=== PATIENT | female | born 1965 | race Caucasian/White ===

== ENCOUNTER 2019-06-01 09:22 | Outpatient (CLI) | payer BC, SELFPAY ==
--- NOTE | ~2019-06-01 | MM_ITS ---
EXAMINATION: MM screening [facility] BI w sita HISTORY: Screening mammogram TECHNIQUE: Craniocaudal and mediolateral oblique 3-D tomosynthesis images were obtained and synthetic 2-D images were generated. CAD analysis was submitted and interpreted. COMPARISON: 11/14/2017, 03/30/2012, 03/28/2010 BREAST PARENCHYMAL COMPOSITION: The breasts are almost entirely fatty. FINDINGS: There is no evidence of suspicious mass, calcification, or architectural distortion to sugg est malignancy in either breast. There has been no suspicious interval change. IMPRESSION: 1. No mammographic evidence of malignancy. 2. Recommend routine screening mammography in one year. BI-RADS Category 1: Negative Reviewed, dictated and finalized at location A. MACY OPERATIONS COORDINATOR
== END 2019-06-01 09:23 | disposition home or self-care (01) ==
LOC: ANHIMG 09:24
PROVIDERS: PCP Family Medicine; Visit Provider Obstetrics & Gynecology
DX: Z12.31 Encounter for screening mammogram for malignant neoplasm of breast (principal)
CPT/HCPCS: 77063; 77067

== ENCOUNTER 2019-06-30 00:27 | Day surgery (SDC) | payer BC, SELFPAY ==
[2019-06-24 13:35] VITALS: BMI 42.9
[2019-06-30] MEDS: LACTATED RINGERS 1,000 ML 150 ML IV CONT ×2 (07:21→08:14)
[2019-06-30 07:26] LABS: Glucose Point of Care 119 (65-105)
[2019-06-30 07:27] VITALS: BP 125/80; PULSE 80; RESP 16; TEMP 36.8; O2SAT 96
--- NOTE | 2019-06-30 07:46 | WPDANESEPPF ---
Anes - Initial Pre Proc Eval Procedure: Operation Date: 06/30/19 08:00 Proposed Procedures p Colonoscopy - Ivan Brooks MD Date/Time: 06/30/19 07:46 Surgeon: Ivan Brooks MD Pre Op Diagnosis: Rectal Bleeding/ Fam Hx Colon Polyps Patient Data Age: 54 Gender: F Height: 5 ft 4 in Weight: 110.4 kg Last Vital Signs Temp 98.2 F 06/30/19 07:27 Pulse 80 06/30/19 07:27 Resp 16 06/30/19 07:27 BP 125/80 06/30/19 07:27 Pulse Ox 96 06/30/19 07:27 Allergies Allergy/AdvReac Type Severity Reaction Status Date / Time Cephalosporins Allergy Severe HIVES Verified 06/30/19 07:21 levofloxacin Allergy Severe RASH Verified 06/30/19 07:21 Quinolones Allergy Severe HIVES Verified 06/30/19 07:21 cefuroxime Allergy Unknown Unknown Verified 06/30/19 07:21 dexamethasone Allergy Unknown Unknown Verified 06/30/19 07:21 neomycin Allergy Unknown Unknown Verified 06/30/19 07:21 Contrast Media Allergy Unknown Itching Uncoded 06/30/19 07:21 Home Medications Medication Instructions Recorded Confirmed Type aspirin 81 mg tablet,delayed 81 mg PO DAILY 03/05/19 06/24/19 History release bupropion HCl 150 mg 24 hr tablet, 150 mg PO QAM 03/05/19 06/24/19 History extended release clopidogrel 75 mg tablet 75 mg PO DAILY 03/05/19 06/30/19 History cyclobenzaprine 10 mg tablet 10 mg PO TID 03/05/19 06/24/19 History evolocumab 140 mg/mL subcutaneous 140 mg SUB-Q ONCE 03/05/19 06/24/19 History pen injector famotidine 40 mg tablet 40 mg PO DAILY 03/05/19 06/24/19 History fexofenadine 180 mg tablet 180 mg PO DAILY 03/05/19 06/24/19 History icosapent ethyl 1 gram capsule 2 gm PO BID 03/05/19 06/24/19 History metoprolol succinate 25 mg capsule 25 mg PO DAILY 03/05/19 06/30/19 History sprinkle, ext. release 24 hr apremilast 10 mg (4)-20 mg (4)-30 See Rx Instructions PO PER PKG DIR 03/23/19 06/24/19 History mg (47) tablets in a dose pack tramadol 50 mg tablet 50 mg PO Q4H PRN #120 tablet 04/06/19 06/24/19 Rx pseudoephedrine-guaifenesin ER 60 1 tablet PO BID PRN #30 tablet 04/13/19 06/24/19 Rx mg-600 mg tablet,extend release 12hr fluticasone propionate 50 2 spray NASAL DAILY #18.2 ml 05/05/19 06/24/19 Rx mcg/actuation nasal spray,suspension montelukast 10 mg tablet 10 mg PO DAILY #90 tablet 05/31/19 06/24/19 Rx zolpidem 10 mg tablet 10 mg PO ONCE 05/31/19 06/24/19 History blood sugar diagnostic #100 each 06/14/19 Rx blood-glucose meter #1 each 06/14/19 Rx clindamycin HCl 300 mg capsule 300 mg PO Q8H #30 cap 06/14/19 06/30/19 Rx lancets 32 gauge #100 each 06/14/19 Rx metformin 500 mg tablet 500 mg PO BID #180 tablet 06/14/19 06/30/19 Rx rosuvastatin 20 mg tablet 20 mg PO DAILY #90 tablet 06/14/19 06/24/19 Rx Laboratory Tests 06/30/19 07:24 POC Capillary Glucose 119 mg/dl H mg/dl (65-105) Patient hx anesthesia problems: post op nausea/vomiting Family hx anesthesia problems: none PMFSH Past Medical History Medical History (Updated 06/14/19 @ 13:44 by Kia Zarco, [facility]) Acute rhinosinusitis Chronic acquired lymphedema Colon cancer screening DM type 2 (diabetes mellitus, type 2) Encounter to establish care Follow up On senior living drug therapy Parotitis Rectal bleeding Tobacco abuse Tremor UTI (urinary tract infection) Family History Family History (Updated 07/30/18 @ 12:37 by DOCTOR UNKNOWN) Mother Family history of thyroid disease, Onset Age: 84 Family history of chronic obstructive pulmonary disease, Onset Age: 84 Family history of emphysema, Onset Age: 84 Grandparent Diabetes mellitus, Onset Age: 70 Family history of cardiovascular disease Cerebrovascular accident, Onset Age: 70 Father Family history of cardiovascular disease Family history of lymphoma Sibling Acute myocardial infarction, Onset Age: 55 Social History Social History Smoking status: Heavy tobacco smoker Alcohol intake: current Gender identity
--- NOTE | 2019-06-30 08:01 | WPDGICN ---
Assessment and Plan Additional Plan This is a 54-year-old white female patient seen in evaluation at the request of Dr. Jaime Cleaning. patient presents for colonoscopy. Her current weight appetite bowel movements are normal. She states over 10 years has had intermittent bright red blood per rectum typically associated with bowel movements. She denies abdominal pain. In the past she has been told she had irritable bowel syndrome. She denies any change in her weight. Family history is significant her mother's had colon polyps. Past medical history is significant for diabetes, lymphedema, sinusitis, current medications include aspirin, bupropion, Plavix, cyclobenzaprine, famotidine, fexofenadine, metformin, Sudafed, tramadol, rosuvastatin, zolpidem. Allergies include cephalosporins, levofloxacin, neomycin. Physical exam reveals her to be alert. Oriented x3. Vital signs stable. HEENT exam unremarkable. Lungs are clear to auscultation and percussion. Heart is without murmur or extra sounds. Abdominal exam bowel sounds are present soft nontender with no organomegaly. Digital external rectal exam does reveal hemorrhoids. Impression 1. Family history of colon polyps. Her mother had colon polyps. Plan is for surveillance colonoscopy now on a 5 year intervals in the future. 2. Rectal bleeding. Patient known to have hemorrhoids. Plan to assess at the time of colonoscopy. High-fiber diet with fiber supplements are encouraged at this time. Further recommendations may be considered. 3. Irritable bowel syndrome. This is has been present for some time. Plan is for high-fiber diet as outlined above. 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 Parotitis Rectal bleeding Tobacco abuse Tremor UTI (urinary tract infection) Family History Family History (Updated 07/30/18 @ 12:37 by DOCTOR UNKNOWN) Mother Family history of thyroid disease, Onset Age: 84 Family history of chronic obstructive pulmonary disease, Onset Age: 84 Family history of emphysema, Onset Age: 84 Grandparent Diabetes mellitus, Onset Age: 70 Family history of cardiovascular disease Cerebrovascular accident, Onset Age: 70 Father Family history of cardiovascular disease Family history of lymphoma Sibling Acute myocardial infarction, Onset Age: 55 Social History Social History Smoking status: Heavy tobacco smoker Alcohol intake: current Gender identity (if verbalized by the patient): Female Meds Home Medications and Allergies Home Medications Medication Instructions Recorded Confirmed Type aspirin 81 mg tablet,delayed 81 mg PO DAILY 03/05/19 06/24/19 History release bupropion HCl 150 mg 24 hr tablet, 150 mg PO QAM 03/05/19 06/24/19 History extended release clopidogrel 75 mg tablet 75 mg PO DAILY 03/05/19 06/30/19 History cyclobenzaprine 10 mg tablet 10 mg PO TID 03/05/19 06/24/19 History evolocumab 140 mg/mL subcutaneous 140 mg SUB-Q ONCE 03/05/19 06/24/19 History pen injector famotidine 40 mg tablet 40 mg PO DAILY 03/05/19 06/24/19 History fexofenadine 180 mg tablet 180 mg PO DAILY 03/05/19 06/24/19 History icosapent ethyl 1 gram capsule 2 gm PO BID 03/05/19 06/24/19 History metoprolol succinate 25 mg capsule 25 mg PO DAILY 03/05/19 06/30/19 History sprinkle, ext. release 24 hr apremilast 10 mg (4)-20 mg (4)-30 See Rx Instructions PO PER PKG DIR 03/23/19 06/24/19 History mg (47) tablets in a dose pack tramadol 50 mg tablet 50 mg PO Q4H PRN #120 tablet 04/06/19 06/24/19 Rx pseudoephedrine-guaifenesin ER 60 1 tablet PO BID PRN #30 tablet
[2019-06-30 08:40] VITALS: BP 110/66; PULSE 74; RESP 18; O2SAT 99
[2019-06-30 08:50] VITALS: BP 120/70; PULSE 68; RESP 15; O2SAT 99
[2019-06-30 09:00] VITALS: BP 127/78; PULSE 66; RESP 17; O2SAT 99
== END 2019-06-30 09:15 | disposition home or self-care (01) ==
PROVIDERS: PCP Internal Medicine; Visit Provider Internal Medicine Gastroenterology
PROC: 0DJD8ZZ Inspection of Lower Intestinal Tract, Via Natural or Artificial Opening Endoscopic (ICD-10-PCS; CPT 45378; principal; 2019-06-30 08:00)
DX: Z12.11 Encounter for screening for malignant neoplasm of colon (principal); K62.5 Hemorrhage of anus and rectum; D12.5 Benign neoplasm of sigmoid colon; K64.8 Other hemorrhoids; K58.9 Irritable bowel syndrome, unspecified; Z83.71 Family history of colonic polyps; E11.9 Type 2 diabetes mellitus without complications; Z79.82 Long term (current) use of aspirin; Z79.02 Long term (current) use of antithrombotics/antiplatelets; Z79.84 Long term (current) use of oral hypoglycemic drugs; Z72.0 Tobacco use; E66.01 Morbid (severe) obesity due to excess calories; Z68.41 Body mass index [BMI] 40.0-44.9, adult
CPT/HCPCS: 45385; 88305; J2704; J7120

== ENCOUNTER 2019-07-20 14:14 | Outpatient (CLI) | payer BC, SELFPAY ==
--- NOTE | ~2019-07-20 | XR_ITS ---
EXAMINATION: XR sinus min 3V INDICATION: Recurrent sinusitis TECHNIQUE: Five views of the paranasal sinuses are obtained. COMPARISON: CT, 02/09/2010 FINDINGS: The paranasal sinuses are well pneumatized. No sinus opacification is identified. The left maxillary sinus is mildly hypoplastic compared to the right. The patient bones are unremarkable. Ther e is chronic mild leftward deviation of the nasal septum. IMPRESSION: 1. Unremarkable paranasal sinuses although sensitivity of radiographs is low. Consider CT if there is high clinical concern for sinusitis. Reviewed, dictated and finalized at location B. IMPRESSION: 1. Unremarkable paranasal sinuses although sensitivity of radiographs is low. C onsider CT if there is high clinical concern for sinusitis.
--- NOTE | ~2019-07-20 | CT_ITS ---
EXAMINATION: CT chest wo con DATE: 07/20/2019 15:22 INDICATION: Cough TECHNIQUE: Computed tomography (CT) of the chest was performed without intravenous contrast. The dose -length product was 575.34 mGy-cm. Automated exposure control and iterative reconstruction technique were employed. COMPARISON: CT dated 03/15/2010 FINDINGS: There are patchy bilateral groundglass opacities in both lungs. There is a 6 mm right lower lobe nodule, image 86. There are several right upper lobe nodules measuring up to 4 mm. There is a 6 mm left upper lobe nodule. There is a 5 mm right lower lobe nodule, image 83. There is a 6 mm subsol id perifissural nodule, image 73. No endobronchial lesions. There is atherosclerosis of the aorta and coronary arteries. Heart size is normal. No significant pleural or pericardial effusion. Fatty infil tration of the liver. Calcified granulomas in the spleen. There is mild axillary lymphadenopathy, lar gest in the left axilla partially visualized measuring 1.3 cm, image 32. 9 mm precarinal lymph node. Mild thoracic spondylosis. IMPRESSION: 1. Patchy bilateral groundglass opacification, suspicious for pneumonia. 2: Multiple bilateral pulmonary nodules, largest measuring up to 6 mm. Recommend follow-up low dose CT chest in 6 months. 3: Mediastinal and axillary lymphadenopathy, likely reactive. Reviewed, dictated and finalized at location A. IMPRESSION: 1. Patchy bilateral groundglass opacification, suspicious for pneumonia. 2: Multiple bilateral pulmonary nodules, largest measuring up to 6 mm. Recomme nd follow-up low dose CT chest in 6 months. 3: Mediastinal and axillary lymphadenopathy, likely reactive.
--- NOTE | ~2019-07-20 | XR_ITS ---
XR knee RT 3V 07/20/2019 15:08 Indication: Right knee pain Procedure: 3 views right knee Comparison: No prior studies for comparison. Findings: There is mild tricompartment osteoarthritis of the right knee. Small joint effusion. No fra cture or traumatic malalignment. No foreign bodies. Impression: 1: Mild tricompartment osteoarthritis of the right knee. 2: Small joint effusion. Reviewed, dictated and finalized at location A. Impression: 1: Mild tricompartment osteoarthritis of the right knee. 2: Small joint effusion.
== END 2019-07-20 14:15 | disposition home or self-care (01) ==
LOC: ANHIMG 14:43
PROVIDERS: PCP Internal Medicine; Visit Provider Internal Medicine
DX: J01.91 Acute recurrent sinusitis, unspecified (principal); R91.8 Other nonspecific abnormal finding of lung field; M25.461 Effusion, right knee; M17.11 Unilateral primary osteoarthritis, right knee
CPT/HCPCS: 70220; 71250; 73562

== ENCOUNTER 2019-07-26 10:01 | Outpatient (CLI) | payer BC, SELFPAY ==
--- NOTE | ~2019-07-26 | XR_ITS ---
EXAMINATION: XR chest 2V DATE: 07/26/2019 10:19 INDICATION: Pneumonia TECHNIQUE: PA and lateral views of the chest were obtained. COMPARISON: Chest radiograph dated and CT dated 07/20/2019 FINDINGS: Chronic linear discoid atelectasis/scarring at the lingula. No other airspace opacities, pulmonary ed waqar, pleural effusion or pneumothorax. The cardiomediastinal silhouette is normal. Mild thoracic spon dylosis. IMPRESSION: 1. Mild lingular atelectasis/scarring at the lingula. No acute cardiopulmonary disease. Reviewed, dictated and finalized at location A.
== END 2019-07-26 10:02 | disposition home or self-care (01) ==
LOC: ANHIMG 10:04
PROVIDERS: PCP Internal Medicine; Visit Provider Internal Medicine
DX: J18.9 Pneumonia, unspecified organism (principal); J98.11 Atelectasis
CPT/HCPCS: 71046

== ENCOUNTER 2019-07-30 12:34 | Outpatient (CLI) | payer BC, SELFPAY ==
--- NOTE | ~2019-07-30 | MR_ITS ---
EXAMINATION: MR abdomen wo/w con DATE: 07/30/2019 14:24 INDICATION: Generalized enlarged lymph nodes. TECHNIQUE: Magnetic resonance imaging (MRI) of the abdomen was performed without and with 20 mL Multi miguelito intravenous contrast. Sequences included coronal T2-weighted SS-FSE, coronal and axial FS 2D-F IESTA, axial STIR FSE, axial T2-weighted SS-FSE, axial T2-weighted FS SS-FSE, axial diffusion-weighte d SE, axial dual-echo T1-weighted FSPGR, and axial and coronal T1-weighted LAVA. Postcontrast axial T 1-weighted LAVA images were obtained in a time course. Postcontrast coronal T1-weighted LAVA images w ere obtained. COMPARISON: MRI dated 05/22/2018 FINDINGS: Heart size is normal. No pericardial or pleural effusion. Hepatomegaly with chronic severe diffuse he patic steatosis with prominent decreased signal on opposed phase images. No intra or extrahepatic luis iary ductal dilation. Gallbladder, spleen, pancreas, bilateral adrenal glands and left kidney are nor mal. 1.4 cm exophytic T2 hyperintense nonenhancing cyst at the lower pole of the right kidney. Visual ized portions of the bowels are unremarkable with no evident wall thickening or obstruction. Again se en are a few mildly prominent periportal and portacaval lymph nodes. The largest portacaval lymph nod e measures 2.0 x 1.4 cm which is slightly decreased in size from the prior study at which time kush sinha measurements were 2.2 x 1.5 cm. 2 slightly smaller periportal lymph nodes measure 1.8 x 1.4 c m and 1.3 x 1.1 cm, the former with identical measurements on the prior study and the latter decrease d from 1.4 x 1.3 cm. No other pathologically enlarged abdominal lymphadenopathy. Bone marrow signal i s unremarkable. IMPRESSION: 1. No change to mild interval decrease in size of a few likely reactive periportal/portacaval lymph n odes. 2. Diffuse hepatic steatosis. Reviewed, dictated and finalized at location B. IMPRESSION: 1. No change to mild interval decrease in size of a few likely reactive peripor morgan/portacaval lymph nodes. 2. Diffuse hepatic steatosis.
[2019-07-30 13:28] LABS: Estimated Glomerular Filt Rate > 60
== END 2019-07-30 12:35 | disposition home or self-care (01) ==
PROVIDERS: PCP Internal Medicine; Visit Provider Internal Medicine
DX: R59.1 Generalized enlarged lymph nodes (principal); K76.0 Fatty (change of) liver, not elsewhere classified
CPT/HCPCS: 36415; 74183; A9577

== ENCOUNTER 2019-09-06 14:05 | Outpatient (CLI) | payer BC, SELFPAY ==
--- NOTE | 2019-09-08 18:21 | WPDPFTINT ---
PFT Interpretation PFT Interpretation: DOS: 09/06/2019 REQUESTING: Dr Jaime Cleaning REASON FOR TESTING: Shortness of breath PULMONARY FUNCTION TESTS Results are reliable and reproducible. Spirometry: FEV1 82%, normal. FVC is 80%, normal. FEV1% is normal. OUB16-95% is 62%. After bronchodilator, there is a 10% increase in FEV1 and 19% increase in ANZ16-23%, which is not statistically significant. Lung volumes: Not obtainable due to a technical problem with the equipment in the PFT lab. Diffusion: DLCO is mildly decreased 67%. Flow volume loop: Scooping of the expiratory limb. IMPRESSION: Mild small airways pattern with a non-statistically significant response to bronchodilator and a mild diffusion impairment. Technical issues prevented the lung volumes from being obtained, which limits the interpretation of these results. Lack of response to bronchodilator should not preclude use if clinically significant. Leonor Lopez MD
== END 2019-09-06 14:06 | disposition home or self-care (01) ==
PROVIDERS: PCP Internal Medicine; Visit Provider Internal Medicine
DX: R06.02 Shortness of breath (principal)
CPT/HCPCS: 94060; 94729

== ENCOUNTER 2019-10-02 08:48 | Outpatient (CLI) | payer BC, SELFPAY ==
--- NOTE | ~2019-10-02 | MR_ITS ---
EXAMINATION: MR knee RT wo con DATE: 10/02/2019 09:45 INDICATION: Generalized right knee pain. TECHNIQUE: Magnetic resonance imaging (MRI) of the right knee was performed without intravenous contr ast. Sequences included axial PD-weighted FS FSE, coronal PD-weighted FSE and PD-weighted FS FSE, sag ittal PD-weighted FSE, and sagittal T2-weighted FS FSE. COMPARISON: Right knee radiographs 07/20/2019, MRI 06/15/2014 FINDINGS: Medial compartment: There is a complex tear involving body and posterior horn of medial meniscus. There is deep partial t hickness cartilage loss of tibial condyle involving the medial articular surface with mild subchondra l edema-like marrow signal intensity. There is full-thickness cartilage loss of femoral condyle invol ving the central and medial articular surface with mild subchondral edema-like marrow signal intensit y. Marginal osteophytes are noted. Lateral compartment: Lateral meniscus is normal. There is shallow partial-thickness cartilage loss of femoral condyle invo lving the lateral articular surface. There is cartilage surface regularity of tibial condyle. Margina l osteophytes are noted. Patellofemoral compartment: There is shallow partial-thickness cartilage loss of patellar median ridge and lateral facet. There i s cartilage surface irregularity of trochlea. Marginal osteophytes are noted. Ligaments and tendons: The anterior and posterior cruciate ligaments are normal. There is a partial tear of medial collatera l ligament (grade 2 sprain) with surrounding edema. There are changes of prior sprain of fibular derek ateral ligament characterized by thickening and increased signal intensity proximally. There is moder ate patellar tendinopathy. Fluid: There is a small knee joint effusion. There is trace fluid in a Mckoy's cyst. Osseous/other: There is an intraosseous ganglion in posterior medial aspect of proximal tibia. IMPRESSION: 1. Severe chondrosis of medial compartment and mild chondrosis of lateral and patellofemoral compartm ents. 2. Complex tear of medial meniscus. 3. Grade 2 sprain of medial collateral ligament. 4. Small knee joint effusion. Reviewed, dictated and finalized at location E. IMPRESSION: 1. Severe chondrosis of medial compartment and mild chondrosis of lateral and p atellofemoral compartments. 2. Complex tear of medial meniscus. 3. Grade 2 sprain of medial collateral ligament. 4. Small knee joint effusion.
== END 2019-10-02 08:49 | disposition home or self-care (01) ==
LOC: ANHIMG 08:52
PROVIDERS: PCP Internal Medicine; Visit Provider Orthopaedic Surgery
DX: S83.411A Sprain of medial collateral ligament of right knee, initial encounter (principal); M25.461 Effusion, right knee; S83.231A Complex tear of medial meniscus, current injury, right knee, initial encounter; Y93.89 Activity, other specified
CPT/HCPCS: 73721

== ENCOUNTER 2019-10-12 09:05 | Outpatient (CLI) | payer BC, SELFPAY ==
--- NOTE | ~2019-10-12 | XR_ITS ---
EXAMINATION: XR elbow RT 2V DATE: 10/12/2019 10:25 INDICATION: Multiple joint pain. TECHNIQUE: 2 views of right elbow were obtained. COMPARISON: None. FINDINGS: Bone alignment is normal. No fracture. Joint spaces are well maintained. There are enthesop hytes at the medial and lateral humeral epicondyles. There is no elbow joint effusion. IMPRESSION: 1. No arthritis. Reviewed, dictated and finalized at location A. IMPRESSION: 1. No arthritis.
--- NOTE | ~2019-10-12 | XR_ITS ---
EXAMINATION: XR hip RT min 2V DATE: 10/12/2019 10:26 INDICATION: Multiple joint pain. TECHNIQUE: 2 views of right hip were obtained. COMPARISON: None. FINDINGS: Bone alignment is normal. No fracture. There is mild right hip osteoarthritis. Osteitis pub is is noted. IMPRESSION: 1. Mild right hip osteoarthritis. Reviewed, dictated and finalized at location A.
--- NOTE | ~2019-10-12 | XR_ITS ---
EXAMINATION: XR foot RT 2V DATE: 10/12/2019 10:25 INDICATION: Multiple joint pain. TECHNIQUE: 2 views of right foot were obtained. COMPARISON: None. FINDINGS: Bone alignment is normal. No fracture. There is mild osteoarthritis of first metatarsophala ngeal joint and some of the interphalangeal joints and midfoot joints. There are enthesophytes at the posterior and plantar aspects of calcaneal tuberosity. IMPRESSION: 1. Mild polyarticular osteoarthritis. Reviewed, dictated and finalized at location A.
--- NOTE | ~2019-10-12 | XR_ITS ---
EXAMINATION: XR ankle RT 2V DATE: 10/12/2019 10:25 INDICATION: Multiple joint pain. TECHNIQUE: 2 views of right ankle were obtained. COMPARISON: None. FINDINGS: Bone alignment is normal. No fracture. There is mild osteoarthritis of ankle joint and talo navicular joint. There are enthesophytes at the posterior and plantar aspects of calcaneal tuberosity . IMPRESSION: 1. Polyarticular osteoarthritis. Reviewed, dictated and finalized at location A.
--- NOTE | ~2019-10-12 | XR_ITS ---
EXAMINATION: XR wrist LT 2V DATE: 10/12/2019 10:25 INDICATION: Multiple joint pain. TECHNIQUE: 2 views of left wrist were obtained. COMPARISON: None. FINDINGS: Bone alignment is normal. No fracture. There is mild osteoarthritis of radioscaphoid joint and first carpometacarpal joint. IMPRESSION: 1. Polyarticular osteoarthritis. Reviewed, dictated and finalized at location A.
--- NOTE | ~2019-10-12 | XR_ITS ---
EXAMINATION: XR shoulder LT min 2V DATE: 10/12/2019 10:25 INDICATION: Multiple joint pain. TECHNIQUE: 2 views of left shoulder were obtained. COMPARISON: None. FINDINGS: Bone alignment is normal. No fracture. There is mild osteoarthritis of glenohumeral joint a nd acromioclavicular joint. IMPRESSION: 1. Mild polyarticular osteoarthritis. Reviewed, dictated and finalized at location A.
--- NOTE | ~2019-10-12 | XR_ITS ---
EXAMINATION: XR hip LT min 2V DATE: 10/12/2019 10:25 INDICATION: Multiple joint pain. TECHNIQUE: 2 views of left hip were obtained. COMPARISON: None. FINDINGS: Bone alignment is normal. No fracture. There is mild left hip osteoarthritis. Osteitis pubi s is noted. IMPRESSION: 1. Mild left hip osteoarthritis. Reviewed, dictated and finalized at location A.
--- NOTE | ~2019-10-12 | XR_ITS ---
EXAMINATION: XR hand LT 2V DATE: 10/12/2019 10:25 INDICATION: Multiple joint pain. TECHNIQUE: 2 views of left hand were obtained. COMPARISON: None. FINDINGS: Bone alignment is normal. No fracture. There is mild osteoarthritis of radioscaphoid joint, first carpometacarpal joint, first interphalangeal joint, fifth proximal interphalangeal joint, and second, third, and fifth distal interphalangeal joints. There is degenerative cystic change in proxim al lunate, consistent with ulnolunate impaction syndrome. IMPRESSION: 1. Polyarticular osteoarthritis. Reviewed, dictated and finalized at location A.
--- NOTE | ~2019-10-12 | XR_ITS ---
EXAMINATION: XR hand RT 2V DATE: 10/12/2019 10:25 INDICATION: Multiple joint pain. TECHNIQUE: 2 views of right hand were obtained. COMPARISON: None. FINDINGS: Bone alignment is normal. No fracture. There is mild osteoarthritis of first carpometacarpa l joint, first interphalangeal joint, third and fifth proximal interphalangeal joints, and second, th ird, and fifth distal interphalangeal joints. IMPRESSION: 1. Mild polyarticular osteoarthritis. Reviewed, dictated and finalized at location A.
--- NOTE | ~2019-10-12 | XR_ITS ---
EXAMINATION: XR elbow LT 2V DATE: 10/12/2019 10:25 INDICATION: Multiple joint pain. TECHNIQUE: 2 views of left elbow were obtained. COMPARISON: Left elbow radiographs 01/05/2008 FINDINGS: Bone alignment is normal. No fracture. Joint spaces are well maintained. There are enthesop hytes at the medial and lateral humeral epicondyles. There is no elbow joint effusion. IMPRESSION: 1. No arthritis. Reviewed, dictated and finalized at location A. IMPRESSION: 1. No arthritis.
--- NOTE | ~2019-10-12 | XR_ITS ---
EXAMINATION: XR knee LT 2V DATE: 10/12/2019 10:25 INDICATION: Left knee joint pain. TECHNIQUE: 2 views of left knee were obtained. COMPARISON: None. FINDINGS: Bone alignment is normal. No fracture. There is mild tricompartmental osteoarthritis. No kn ee joint effusion. IMPRESSION: 1. Mild left knee osteoarthritis. Reviewed, dictated and finalized at location A.
--- NOTE | ~2019-10-12 | XR_ITS ---
EXAMINATION: XR shoulder RT min 2V DATE: 10/12/2019 10:25 INDICATION: Multiple joint pain. TECHNIQUE: 2 views of right shoulder were obtained. COMPARISON: None. FINDINGS: Bone alignment is normal. No fracture. There is mild osteoarthritis of glenohumeral joint a nd acromioclavicular joint. IMPRESSION: 1. Mild polyarticular osteoarthritis. Reviewed, dictated and finalized at location A.
--- NOTE | ~2019-10-12 | XR_ITS ---
EXAMINATION: XR foot LT 2V DATE: 10/12/2019 10:25 INDICATION: Multiple joint pain. TECHNIQUE: 2 views of left foot were obtained. COMPARISON: None. FINDINGS: Bone alignment is normal. No fracture. There is mild osteoarthritis of first metatarsophala ngeal joint and some of the interphalangeal joints. There is moderate osteoarthritis of second tarsom etatarsal joint and mild osteoarthritis of some of the other midfoot joints. There are enthesophytes at the posterior and plantar aspects of calcaneal tuberosity. IMPRESSION: 1. Polyarticular osteoarthritis. Reviewed, dictated and finalized at location A.
--- NOTE | ~2019-10-12 | XR_ITS ---
EXAMINATION: XR ankle LT 2V DATE: 10/12/2019 10:25 INDICATION: Multiple joint pain. TECHNIQUE: 2 views of left ankle were obtained. COMPARISON: None. FINDINGS: Bone alignment is normal. No fracture. There is mild osteoarthritis of talonavicular joint and moderate osteoarthritis of second tarsometatarsal joint. There are enthesophytes at the posterior and plantar aspects of calcaneal tuberosity. IMPRESSION: 1. Polyarticular osteoarthritis. Reviewed, dictated and finalized at location A.
--- NOTE | ~2019-10-12 | XR_ITS ---
EXAMINATION: XR wrist RT 2V DATE: 10/12/2019 10:25 INDICATION: Multiple joint pain. TECHNIQUE: 2 views of right wrist were obtained. COMPARISON: None. FINDINGS: Bone alignment is normal. No fracture. There is mild osteoarthritis of radioscaphoid joint and first carpometacarpal joint. IMPRESSION: 1. Polyarticular osteoarthritis. Reviewed, dictated and finalized at location A.
== END 2019-10-12 09:06 | disposition home or self-care (01) ==
LOC: ANHIMG 09:08
PROVIDERS: PCP Internal Medicine; Visit Provider Internal Medicine Rheumatology
DX: M19.071 Primary osteoarthritis, right ankle and foot (principal); M19.072 Primary osteoarthritis, left ankle and foot; M19.041 Primary osteoarthritis, right hand; M19.011 Primary osteoarthritis, right shoulder; M19.012 Primary osteoarthritis, left shoulder; M19.031 Primary osteoarthritis, right wrist; M19.032 Primary osteoarthritis, left wrist; M17.12 Unilateral primary osteoarthritis, left knee; M16.0 Bilateral primary osteoarthritis of hip
CPT/HCPCS: 73030; 73070; 73100; 73120; 73502; 73560; 73600; 73620

== ENCOUNTER 2019-11-11 08:47 | Outpatient (CLI) | payer BC, SELFPAY ==
--- NOTE | ~2019-11-11 | CT_ITS ---
EXAMINATION: CT chest w con DATE: 11/11/2019 09:20 INDICATION: Multiple pulmonary nodules TECHNIQUE: Computed tomography (CT) of the chest was performed with 75 cc Omnipaque 350 intravenous c ontrast. Automated exposure control and iterative reconstruction technique were employed. Exam dose: 829.95 mGy-cm total exam DLP. COMPARISON: 07/20/2019 CT chest 07/26/2019 2 view chest FINDINGS: Normal heart size. Coronary artery calcifications. No pericardial effusion. No thoracic aor tic aneurysm or dissection is evident. Approximately 12 x 23 mm right hilar lymphadenopathy. No left hilar or mediastinal lymphadenopathy. Axillary lymph nodes appear stable, within normal range for size. There is no significant interval change of multiple bilateral subcentimeter pulmonary nodules, more n umerous on the right, since 07/20/2019. 12 month follow-up CT imaging is recommended. Included upper abdominal structures including both adrenal glands are unremarkable, with the exceptio n of hepatic steatosis. Degenerative spurring of the thoracic spine. No suspicious osteolytic or osteoblastic lesions are not ed. IMPRESSION: Multiple stable bilateral subcentimeter pulmonary nodules, not significantly changed sin ce 07/20/2019 Mild relatively stable right hilar lymphadenopathy Recommendation: [address] chest follow-up Reviewed, dictated and finalized at Location A. Reviewed, dictated and finalized at location A. IMPRESSION: Multiple stable bilateral subcentimeter pulmonary nodules, not sig nificantly changed since 07/20/2019 Mild relatively stable right hilar lymphadenopathy Recommendation: [address] chest follow-up
[2019-11-11 09:14] LABS: Estimated Glomerular Filt Rate > 60
== END 2019-11-11 08:48 | disposition home or self-care (01) ==
LOC: ANHIMG 08:50
PROVIDERS: PCP Internal Medicine; Visit Provider Internal Medicine
DX: R91.8 Other nonspecific abnormal finding of lung field (principal)
CPT/HCPCS: 36415; 71260; Q9967

== ENCOUNTER 2019-11-30 07:22 | Outpatient (CLI) | payer BC, SELFPAY | END 2019-11-30 07:23 | disposition home or self-care (01) | LOC: ANHCSM 07:28 | PROVIDERS: PCP Internal Medicine; Visit Provider Internal Medicine | DX: G47.33 Obstructive sleep apnea (adult) (pediatric) (principal) | CPT/HCPCS: 95806 ==

== ENCOUNTER 2019-12-03 14:54 | Outpatient (CLI) | payer BC, SELFPAY ==
--- NOTE | ~2019-12-03 | MR_ITS ---
EXAMINATION: MR cervical spine wo con EXAM DATE: 12/03/2019 15:47 INDICATION: Chronic back pain down shoulders. Parietal headaches. TECHNIQUE: Multi-sequential, multiplanar MR images of the cervical spine were obtained without contra st. Axial T2, axial T2 MERGE sequence. Sagittal T1, T2, T2 fat saturation images also obtained. Th ere is no prior study for comparison. FINDINGS: The vertebral bodies are aligned in the AP dimension. Vertebral body and disc heights are well-maintained. There are no suspicious marrow signal abnormalities. The spinal cord signal intensit y and intrinsic morphology is normal. Cervicomedullary junction is normal in appearance. Paraspinal s oft tissue is unremarkable. Level by level evaluation: C2-C3: Disc does not extend beyond the endplate margin. Uncovertebral joint arthropathy: None. Facet joint arthropathy: Mild left. Neural foraminal stenosis: No stenosis. Central canal stenosis: No stenosis. C3-C4: Disc does not extend beyond the endplate margin. Uncovertebral joint arthropathy: Mild bilateral. Facet joint arthropathy: None. Neural foraminal stenosis: No stenosis. Central canal stenosis: No stenosis. C4-C5: Disc does not extend beyond the endplate margin. Uncovertebral joint arthropathy: Mild bilateral. Facet joint arthropathy: Mild to moderate bilateral. Neural foraminal stenosis: Mild right. Central canal stenosis: No stenosis. C5-C6: Disc does not extend beyond the endplate margin. Uncovertebral joint arthropathy: Mild bilateral. Facet joint arthropathy: Mild to moderate right, mild left. Neural foraminal stenosis: No stenosis. Central canal stenosis: No stenosis. C6-C7: Disc does not extend beyond the endplate margin. Uncovertebral joint arthropathy: None. Facet joint arthropathy: Mild bilateral. Neural foraminal stenosis: No stenosis. Central canal stenosis: No stenosis. C7-T1: Disc does not extend beyond the endplate margin. Uncovertebral joint arthropathy: None. Facet joint arthropathy: Mild right. Neural foraminal stenosis: No stenosis. Central canal stenosis: No stenosis. IMPRESSION: Mild cervical arthropathy. Reviewed, dictated and finalized at location A. IMPRESSION: Mild cervical arthropathy.
--- NOTE | ~2019-12-03 | MR_ITS ---
EXAMINATION: MR lumbar spine wo [facility] EXAM DATE: 12/03/2019 16:07 INDICATION: Chronic low back and bilateral hip pain. TECHNIQUE: Multi-sequential, multiplanar MR images of the lumbar spine were obtained without contrast . Sagittal T1, T2, T2 fat saturation images. Axial T2 weighted images. There is no prior study for comparison. FINDINGS: There is mild disc disease L5-S1 with 2-3 mm retrolisthesis. The vertebral bodies are other blue aligned. The vertebral body and disc heights are otherwise well maintained. The conus medullaris terminates at the L1/2 level and has normal signal intensity and morphology. There is hemangioma at the inferior endplate of L1. Paraspinal soft tissue is unremarkable. Level by level evaluation: T12-L1: Disc does not extend beyond the endplate margin. Facet arthropathy: Mild. Neural foraminal stenosis: No stenosis. Central canal stenosis: No stenosis. L1-L2: Disc does not extend beyond the endplate margin. Facet arthropathy: Mild. Neural foraminal stenosis: No stenosis. Central canal stenosis: No stenosis. L2-L3: Disc does not extend beyond the endplate margin. Facet arthropathy: Mild to moderate. Neural foraminal stenosis: No stenosis. Central canal stenosis: No stenosis. L3-L4: There is a mild to moderate diffuse disc bulge. Facet arthropathy: None. Neural foraminal stenosis: No stenosis. Central canal stenosis: No stenosis. L4-L5: Disc does not extend beyond the endplate margin. Facet arthropathy: Mild to moderate. Neural foraminal stenosis: No stenosis. Central canal stenosis: No stenosis. L5-S1: There is a mild diffuse disc bulge. Facet arthropathy: Mild. Neural foraminal stenosis: Mild to moderate left, mild right. Central canal stenosis: Mild. IMPRESSION: 1. Mild lumbar spondylosis. Reviewed, dictated and finalized at location A. IMPRESSION: 1. Mild lumbar spondylosis.
--- NOTE | 2019-12-06 07:50 | SLEEP_ITS ---
Home Sleep Test DATE OF STUDY: 11/30/2019 ORDERING PHYSICIAN: Jaime Cleaning M.D. REASON FOR THIS STUDY: APRIL, obstructive sleep apnea syndrome. HISTORY: This patient is a 54-year-old woman, 5 feet 4 inches tall, weighing 245 pounds with a body mass index of 42. She wakes up frequently at night with her legs and whole body in pain. She takes a tramadol and a muscle relaxant at night to help with her fibromyalgia and neuropathy. She wakes up frequently throughout the night as well as early in the morning. She occasionally snores and it is occasionally loud enough that others complain about it. She rarely awakens at night with heartburn or belching. She does not awaken at night with shortness of breath. She frequently has trouble sleeping with a cold. She does not wake up gasping for breath at night and does not have breathing problems at night observed by others. She frequently sweats excessively at night. She does not notice her heart pounding or beating irregularly at night. She frequently falls asleep during the day. She does not fall asleep involuntarily or while driving. She does not lose muscle tone with strong emotion. 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 She does not feel paralyzed on waking or falling asleep. She occasionally has vivid dreamlike scenes upon awakening or falling asleep. She is never afraid to go to sleep. She occasionally has nightmares and occasionally remembers her dreams. She frequently has racing thoughts. She occasionally feels sad and depressed. She frequently has anxiety. She frequently has muscular tension and notices parts of her body jerking. She rarely kicks at night. She constantly has an achy crawly feeling in her legs and leg pain at night. She rarely has morning jaw pain, occasionally grinds her teeth at night. She constantly is bothered by pain during the day, pain at night that awakens her, constantly feels stiff in the morning with sore achy muscles and pain in her neck and spine. She has headaches, nightmares, lack of libido, stomach problems, dizziness, fatigue, difficulty making decisions. Normal bedtime is 09:00 p.m., falling asleep quickly because she takes medication, waking 3-4 times at night for a few minutes. During this time, she will change position as her hips and legs are hurting. She wakes in the morning at 05:00 a.m. On the weekends, she may go to bed an hour later and wake an hour later. She does wake and go to the bathroom at night. She sometimes takes an afternoon nap. Naps are not refreshing. She feels better in the morning than at other times a day. MEDICAL COMORBIDITIES: 1. History of obstructive sleep apnea syndrome. Initial study was 03/01/2004 with 8 cm of CPAP optimal pressure, another study 03/30/2003 with an AHI of 8. 2. Lymphedema. 3. Diabetes mellitus type 2. 4. History of lung nodules. 5. Osteoarthritis. 6. Tremor. MEDICATIONS: 1. Fexofenadine 180 mg a day. 2. Aspirin 81 mg a day. 3. Bupropion XL 150 mg a day. 4. Plavix 75 mg a day. 5. Vitamin B12 sublingual 1000 mcg daily. 6. Pepcid 40 mg a day. 7. Metoprolol succinate 25 mg a day. 8. Vascepa 2 capsules daily. 9. Repatha injected once every 2 weeks. 10. Tacrolimus 0.1% ointment as needed. 11. Tramadol 50 mg q.6 hours p.r.n. pain. 12. Cyclobenzaprine 10 mg half tablet at bedtime. 13. Rosuvastatin 20 mg a day. 14. Montelukast 10 mg a day. 15. Metformin HCL 500 mg twice a day. 16. Fluticasone propionate 50 mcg 2 sprays each nostril daily. HABITS: Tobacco, a pack per day. Caffeine, 2 cups daily. Alcohol twice a week, 2 or 3 beverages. No recreational drugs. DESCRIPTION OF THE STUDY: On the [place] Sleepiness Scale, her score is elevated 14. Thi
== END 2019-12-03 14:55 | disposition home or self-care (01) ==
LOC: ANHIMG 14:56
PROVIDERS: PCP Internal Medicine; Visit Provider Internal Medicine Rheumatology
DX: M54.2 Cervicalgia (principal); G47.33 Obstructive sleep apnea (adult) (pediatric); M47.896 Other spondylosis, lumbar region
CPT/HCPCS: 72141; 72148

== ENCOUNTER 2020-01-11 14:09 | Outpatient (CLI) | payer BC, SELFPAY ==
--- NOTE | ~2020-01-11 | CT_ITS ---
EXAMINATION: CT soft tissue neck wo con DATE: 01/11/2020 14:42 INDICATION: Cervical lymphadenopathy. TECHNIQUE: Computed tomography (CT) of the neck was performed without intravenous contrast. Automated exposure control and iterative reconstruction technique were employed. The dose-length product was 5 79.57 mGy-cm. COMPARISON: Neck CT 02/09/2010 FINDINGS: There are likely changes of ocular lens replacement surgeries. There are no pathologically enlarged lymph nodes in the neck. There is a chronic mildly enlarged right paratracheal lymph node, l ikely reactive. There is mild cervical spondylosis. IMPRESSION: 1. No cervical lymphadenopathy. Reviewed, dictated and finalized at location A.
== END 2020-01-11 14:10 | disposition home or self-care (01) ==
PROVIDERS: PCP Internal Medicine; Visit Provider Internal Medicine Rheumatology
DX: R59.0 Localized enlarged lymph nodes (principal)
CPT/HCPCS: 70490

== ENCOUNTER → 2020-01-24 12:22 | Outpatient (CLI) | payer BC, SELFPAY ==
--- NOTE | ~2020-01-24 | US_ITS ---
EXAMINATION: US soft tissue head and neck DATE: 01/24/2020 12:59 INDICATION: Chronic palpable areas at the left and right neck. TECHNIQUE: Multiple grayscale and Doppler ultrasound images of the region of concern at the neck were obtained. COMPARISON: CT dated 01/11/2020 FINDINGS: In one of the palpable abnormalities at the midline of the neck there is a 3.1 x 2.6 x 1.0 cm mass wh ich is isoechoic and with similar echotexture to the surrounding subcutaneous fat consistent with a l ipoma. A subtle macroscopic fat attenuation correlate is seen in the submental region on the prior CT . A couple normal-sized subcentimeter lymph nodes are seen at the submandibular region of concern at the left and right neck. IMPRESSION: 1. Probable abnormalities. The midline at the neck corresponds to a 3.1 x 2.6 x 1.0 cm subcutaneous l ipoma. 2. Normal sized bilateral submandibular lymph nodes. Reviewed, dictated and finalized at location A. IMPRESSION: 1. Probable abnormalities. The midline at the neck corresponds to a 3.1 x 2.6 x 1.0 cm subcutaneous lipoma. 2. Normal sized bilateral submandibular lymph nodes.
== END ==
PROVIDERS: PCP Internal Medicine; Visit Provider Internal Medicine
DX: R22.1 Localized swelling, mass and lump, neck (principal)
CPT/HCPCS: 76536

== ENCOUNTER 2020-02-28 09:10 | Outpatient (CLI) | payer BC, SELFPAY ==
[2020-02-28 10:07] LABS: Anion Gap 9 mmol/L (8-16); Blood Urea Nitrogen 12 mg/dL (7-17); Calcium 9.8 mg/dL (8.4-10.2); Carbon Dioxide 29 mmol/L (22-30); Chloride 101 mmol/L (98-107); Estimated Glomerular Filt Rate > 60; Glucose 99 mg/dL (65-105); Potassium 3.9 mmol/L (3.4-5.0); Sodium 139 mmol/L (137-145)
== END 2020-02-28 09:11 | disposition home or self-care (01) ==
LOC: ANHSURGERY 09:13
PROVIDERS: Anesthesiology; PCP Internal Medicine; Visit Provider Surgery Plastic and Reconstructive Surgery
DX: E11.9 Type 2 diabetes mellitus without complications (principal); Z01.818 Encounter for other preprocedural examination
CPT/HCPCS: 36415; 80048

== ENCOUNTER 2020-02-29 06:53 | Emergency (ER) | payer BC, SELFPAY ==
--- NOTE | ~2020-02-29 | CT_ITS ---
EXAMINATION: CT abdomen pelvis wo con EXAM DATE: 02/29/2020 09:15 INDICATION: Epigastric abdominal pain . TECHNIQUE: Spiral CT of the abdomen and pelvis was performed without contrast. Axial, coronal and sag ittal images were reviewed. The dose-length product (DLP) for this examination was 1304.55 mGy-cm. The exposure was tailored according to patient size (auto mA exposure control), and iterative reconst ruction (ASIR) was used as additional dose reduction technique. Comparison is made to prior examinati on from 11/30/2011. FINDINGS: There is no nephrolithiasis or hydronephrosis. There are lobular renal contours. There is a 9 mm exophytic right renal lesion consistent with cyst The uterus is not identified and has likely b een surgically resected. The bladder is unremarkable. There is hepatic steatosis without suspicious focal lesion identified. Spleen, adrenal glands, pancreas are unremarkable. Gallbladder is unremark able. No biliary obstruction. There is no retroperitoneal or pelvic lymphadenopathy. The appendix is normal. The stomach and small bowel are unremarkable. There is expected amount of c olonic stool. No free intraperitoneal gas. The heart is normal in size. There are no pericardial or pleural effusions. Right lower lobe noncalcified 5 mm granulomata unchanged. The bones are unre markable. IMPRESSION: 1. No nephrolithiasis, hydronephrosis or acute intra-abdominal findings. 2. Hepatic steatosis. Reviewed, dictated and finalized at location B. 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
[2020-02-29 07:04] VITALS: BP 148/74; PULSE 82; RESP 20; TEMP 36.8; O2SAT 96
[2020-02-29 07:25] VITALS: BP 147/77; PULSE 76; RESP 18; O2SAT 97
[2020-02-29 07:41] LABS: Add Urine Microscopic? YES; Appearance Urine Clear (Clear); Bilirubin Urine Negative (Negative); Blood Urine 1+ (Negative); Color Urine Yellow (Yellow); Glucose Urine UA Negative (Negative); Ketones Urine Negative (Negative); Leukocyte Esterase Ur Negative LEU/UL (Negative); Mucus Urine Rare /lpf; Nitrate Urine Negative (Negative); Protein Urine Negative (Negative); RBC Urine 0-2 /hpf (0-2); Specific Grav Ur 1.012 (1.001-1.035); Squamous Epithelial Cell Urine Few /hpf (Few); Urobilinogen Urine Negative mg/dL (<2.0); WBC Urine 0-3 /hpf
[2020-02-29 07:44] LABS: Basophils Percent Auto 0.3 % (0.2-1.2); Eosinophils Absolute Auto 0.2 K/mm3 (0-0.3); Eosinophils Percent Auto 1.9 % (0-4.4); Hematocrit 43.7 % (37.0-47.0); Hemoglobin 15.1 g/dL (12.0-15.0); Immature Granulocyte Absolute 0.13 K/mm3 (0.00-0.031); Immature Granulocyte Percent A 1.4 % (0-0.5); Lymphocytes Absolute Auto 2.26 K/mm3 (0.9-3.2); Mean Corpuscular HGB Conc 34.6 g/dl (32-36); Mean Corpuscular Hemoglobin 32.5 pg (26-34); Mean Corpuscular Volume 94.2 fl (80-100); Mean Platelet Volume 11.1 fl (7.4-10.4); Monocytes Absolute Auto 0.5 K/mm3 (0.1-0.6); Monocytes Percent Auto 5.3 % (2.6-8.5); Neutrophils Percent Auto 66.1 % (45.5-73.1); Platelet Count Result 218 k/mm3 (150-375); Red Blood Count 4.64 M/mm3 (4.2-5.4); Red Cell Distribution Width 13.9 % (11.5-14.5)
--- NOTE | 2020-02-29 07:49 | ED.ABDPAIN ---
HPI - Abdominal Pain General Chief Complaint: Abdominal Pain Stated Complaint: abd pain Time Seen by Provider: 02/29/20 07:06 Source: patient Mode of arrival: ambulatory Limitations: no limitations History of Present Illness HPI narrative: This patient is a 55 year old female with history of hypertension and IBS who presents for evaluation of abdominal pain. She reports she developed intermittent sharp upper abdominal pain on Friday. She reports pain resolved on Friday and it returned on Friday. She states she has been having 10/10 cramping pain. Sometimes her pain improves after having a Bowel movement. Yesterday she reports her pain was watery and today her BM was more solid. She has nausea but no vomiting. She also denies fever but she has chills with more severe pain. Related Data Home Medications Medication Instructions Recorded Confirmed aspirin 81 mg tablet,delayed 81 mg PO DAILY 03/05/19 02/23/20 release clopidogrel 75 mg tablet 75 mg PO DAILY 03/05/19 02/23/20 famotidine 40 mg tablet 40 mg PO DAILY 03/05/19 02/23/20 fexofenadine 180 mg tablet 180 mg PO DAILY 03/05/19 02/23/20 metoprolol succinate 25 mg capsule 25 mg PO DAILY 03/05/19 02/23/20 sprinkle, ext. release 24 hr ergocalciferol (vitamin D2) 1,250 1,250 mcg PO WEEKLY 12/20/19 02/23/20 mcg (50,000 unit) capsule cream base no.171 (bulk) 1 applic MISCELLANE DIRECTED PRN 01/20/20 02/23/20 acetaminophen 500 mg tablet 500 mg PO DIRECTED PRN tablet 02/08/20 02/23/20 alirocumab 150 mg/mL subcutaneous 150 mg SUBCUT [id number] 02/08/20 02/23/20 pen injector fluticasone propionate 50 2 spray INTRANASAL DAILY 02/08/20 02/23/20 mcg/actuation nasal spray,suspension icosapent ethyl 1 gram capsule 2 g PO BID 02/08/20 02/23/20 vitamin B complex 2 tablet PO DAILY 02/08/20 02/23/20 cyanocobalamin (vitamin B-12) 2,500 mcg SUBLINGUAL DAILY 02/23/20 02/23/20 [Vitamin B-12] cyclobenzaprine 0.5 mg PO HS 02/23/20 02/23/20 rosuvastatin 20 mg PO DAILY 02/23/20 02/23/20 blood-glucose meter [Accu-Chek 02/29/20 02/29/20 Zenia Plus Meter] Allergies Allergy/AdvReac Type Severity Reaction Status Date / Time Cephalosporins Allergy Severe HIVES Verified 02/29/20 07:39 levofloxacin Allergy Severe RASH Verified 02/29/20 07:39 Quinolones Allergy Severe HIVES Verified 02/29/20 07:39 cefuroxime Allergy Unknown Hives Verified 02/29/20 07:39 dexamethasone Allergy Unknown EYE DROP- Verified 02/29/20 07:39 REDNESS/ITCHING neomycin Allergy Unknown EYE DROP- Verified 02/29/20 07:39 REDNESS/ITCHING Contrast Media Allergy Unknown Rash Uncoded 02/29/20 07:39 Review of Systems Review of Systems: All systems reviewed & are unremarkable except as noted in HPI and below Respiratory: Respiratory: Denies cough and Denies dyspnea Musculoskeletal: Musculoskeletal: Denies back pain PMFSH Past Medical History Medical History Acute rhinosinusitis Arthropathy of cervical spine Blepharitis Chronic acquired lymphedema Colon cancer screening Cough DM type 2 (diabetes mellitus, type 2) Encounter for preventive health examination Encounter for routine adult health examination without abnormal findings Encounter to establish care Enlarged lymph node Follow up Hearing loss History of breast implant removal (~1995) Hypersomnolence Loss of peripheral visual field Lumbar spondylosis Lung nodules Mass of neck Multiple pulmonary nodules determined by computed tomography of lung 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
[2020-02-29 08:02] VITALS: BP 143/85; PULSE 72; RESP 16; O2SAT 98
[2020-02-29 08:50] LABS: Alanine Aminotransferase 29 U/L (4-35); Albumin Level 4.4 g/dL (3.5-5.1); Alkaline Phosphatase 59 U/L (38-126); Anion Gap 8 mmol/L (8-16); Aspartate Amino Transferase 32 U/L (14-36); Bilirubin,Total 0.5 mg/dL (0.2-1.3); Blood Urea Nitrogen 11 mg/dL (7-17); Calcium 9.6 mg/dL (8.4-10.2); Carbon Dioxide 29 mmol/L (22-30); Chloride 103 mmol/L (98-107); Estimated Glomerular Filt Rate > 60; Glucose 104 mg/dL (65-105); Lipase 155 U/L (23-300); Sodium 140 mmol/L (137-145)
== END 2020-02-29 10:31 | disposition home or self-care (01) ==
PROVIDERS: Emergency Provider General Practice; PCP Internal Medicine
DX: R10.84 Generalized abdominal pain (principal); K76.0 Fatty (change of) liver, not elsewhere classified; E11.42 Type 2 diabetes mellitus with diabetic polyneuropathy; G47.30 Sleep apnea, unspecified; M19.90 Unspecified osteoarthritis, unspecified site; F17.210 Nicotine dependence, cigarettes, uncomplicated
CPT/HCPCS: 36415; 74176; 80053; 81001; 83690; 85025; 99284

== ENCOUNTER 2020-03-04 01:30 | Outpatient (CLI) | payer BC, SELFPAY ==
[2020-03-04 18:04] LABS: SARS-CoV-2 RNA PCR Negative
== END 2020-03-04 01:31 | disposition home or self-care (01) ==
LOC: ANHCOVIDDT 01:30
PROVIDERS: PCP Internal Medicine; Visit Provider Surgery Plastic and Reconstructive Surgery
DX: Z01.818 Encounter for other preprocedural examination (principal); Z20.828 Contact with and (suspected) exposure to other viral communicable diseases
CPT/HCPCS: 87635; C9803; U0003

== ENCOUNTER 2020-03-07 01:44 | Day surgery (SDC) | payer BC, SELFPAY ==
[2020-02-23 13:28] VITALS: BMI 42.0
[2020-03-07 08:15] VITALS: BP 155/74; PULSE 78; RESP 20; TEMP 36.4; O2SAT 97
[2020-03-07] MEDS: SCOPOLAMINE 1.5 MG PATCH TRANSDERM (08:45)
--- NOTE | 2020-03-07 08:47 | WPDANESEPPF ---
Anes - Initial Pre Proc Eval Procedure: Operation Date: 03/07/20 10:00 Proposed Procedures p Excision Mass Anterior Neck - Elijah Granda MD Date/Time: 03/07/20 08:47 Surgeon: Elijah Granda MD Pre Op Diagnosis: mass anterior neck Patient Data Age: 55 Gender: F Height: 5 ft 4 in Weight: 107.2 kg Last Vital Signs Temp 36.4 C 03/07/20 08:15 Pulse 78 03/07/20 08:15 Resp 20 03/07/20 08:15 BP 155/74 H 03/07/20 08:15 Pulse Ox 97 03/07/20 08:15 Allergies Allergy/AdvReac Type Severity Reaction Status Date / Time cefuroxime Allergy Severe Hives Verified 03/07/20 08:23 Cephalosporins Allergy Severe HIVES Verified 03/07/20 08:23 dexamethasone Allergy Severe EYE DROP- Verified 03/07/20 08:23 REDNESS/ITCHING levofloxacin Allergy Severe RASH Verified 03/07/20 08:23 neomycin Allergy Severe EYE DROP- Verified 03/07/20 08:23 REDNESS/ITCHING Quinolones Allergy Severe HIVES Verified 03/07/20 08:23 Contrast Media Allergy Severe Rash Uncoded 03/07/20 08:23 Home Medications Medication Instructions Recorded Confirmed Type aspirin 81 mg tablet,delayed 81 mg PO DAILY 03/05/19 03/07/20 History release clopidogrel 75 mg tablet 75 mg PO DAILY 03/05/19 03/07/20 History famotidine 40 mg tablet 40 mg PO DAILY 03/05/19 03/07/20 History fexofenadine 180 mg tablet 180 mg PO DAILY 03/05/19 03/07/20 History metoprolol succinate 25 mg capsule 25 mg PO DAILY 03/05/19 03/07/20 History sprinkle, ext. release 24 hr blood sugar diagnostic #100 each 06/14/19 03/01/20 Rx blood-glucose meter #1 each 06/14/19 03/01/20 Rx lancets 32 gauge #100 each 06/14/19 03/01/20 Rx tramadol 50 mg tablet 50 mg PO Q4-6H PRN #90 tablet 07/27/19 03/07/20 Rx montelukast 10 mg tablet 10 mg PO DAILY #90 tablet 11/15/19 03/07/20 Rx ergocalciferol (vitamin D2) 1,250 1,250 mcg PO WEEKLY 12/20/19 03/07/20 History mcg (50,000 unit) capsule pen needle, diabetic 32 gauge x #100 each 12/20/19 03/01/20 Rx 1/6 bupropion HCl 300 mg 24 hr tablet, 300 mg PO QAM #90 tablet 01/20/20 03/07/20 Rx extended release cream base no.171 (bulk) 1 applic MISCELLANE DIRECTED PRN 01/20/20 03/07/20 History acetaminophen 500 mg tablet 500 mg PO DIRECTED PRN tablet 02/08/20 03/07/20 History alirocumab 150 mg/mL subcutaneous 150 mg SUBCUT [id number] 02/08/20 03/07/20 History pen injector fluticasone propionate 50 2 spray INTRANASAL DAILY 02/08/20 03/07/20 History mcg/actuation nasal spray,suspension icosapent ethyl 1 gram capsule 2 g PO BID 02/08/20 03/07/20 History vitamin B complex 2 tablet PO DAILY 02/08/20 03/07/20 History docusate sodium 100 mg capsule 100 mg PO BID #14 cap 02/17/20 03/07/20 Rx hydrocodone 5 mg-acetaminophen 325 1 tablet PO Q6H PRN #15 tablet 02/17/20 03/01/20 Rx mg tablet ondansetron HCl 4 mg tablet 4 mg PO Q6H PRN #30 tablet 02/17/20 03/07/20 Rx cyanocobalamin (vitamin B-12) 2,500 mcg SUBLINGUAL DAILY 02/23/20 03/07/20 History [Vitamin B-12] cyclobenzaprine 0.5 mg PO HS 02/23/20 03/07/20 History rosuvastatin 20 mg PO DAILY 02/23/20 03/07/20 History blood-glucose meter [Accu-Chek 02/29/20 03/01/20 History Zenia Plus Meter] dicyclomine 10 mg capsule 10 mg PO TID PRN #30 cap 03/01/20 03/07/20 Rx metformin 1,000 mg tablet 1,000 mg PO BID #180 tablet 03/01/20 03/07/20 Rx Patient hx anesthesia problems: post op nausea/vomiting Family hx anesthesia problems: none PMFSH Past Medical History Medical History Acute rhinosinusitis Arthropathy of cervical spine Blepharitis Chronic acquired lymphedema Colon cancer screening Cough DM type 2 (diabetes mellitus, type 2) Encounter for preventive health examination Encounter for routine adult health examination without abnormal findings Encounter to establish care Enlarged lymph node Follow up Hearing loss History of breast implant removal (~1995) Hypersomnolence Loss of peripheral visual field Lumbar
[2020-03-07] MEDS: LACTATED RINGERS 1,000 ML 30 ML IV CONT (08:50)
[2020-03-07 09:04] LABS: Glucose Point of Care 89 (65-105)
--- NOTE | 2020-03-07 09:22 | WPDHPUPDATE1 ---
History and Physical Update Update Date/Time: 03/07/20 09:22 History and Physical has been reviewed, including an updated exam of the patient. There are NO changes in the patient's condition. Risks, benefits, and alternatives have been discussed and questions answered. Patient agrees to proceed with procedure.
--- NOTE | 2020-03-07 09:39 | PM.PROC ---
Procedure Note - Detailed Date of procedure: 03/07/20 Pre-op diagnosis: mass anterior neck Post-op diagnosis: same Procedure performed: Excision anterior neck subcutaneous mass 3 cm Intermediate closure anterior neck 3 cm. Description of procedure: Patient was marked in the preoperative holding area with her verification. She was taken to the operating room placed supine on the operating table. Anesthesia provided by anesthesiology and prepped and draped in standard sterile fashion. Surgical time-out was taken. Fifteen blade used to make an incision over the mass. Dissection was continued down to the was identified completely removed. This was sent to pathology. No evidence of neurovascular injury. I closed in many layers with 3-0 Monocryl followed by running subcuticular 4-0 Monocryl and tissue glue. A dressing was placed. Tolerated well. Anesthesia: GLMA Surgeon: Elijah Granda MD Estimated blood loss (mL): 5 Drains: No Packing: No Pathology: yes (Neck mass - Lipoma appearance.) Complications: No immediate complications Condition: stable Disposition: PACU
[2020-03-07] MEDS: CLINDAMYCIN 900 MG/D5W 50 ML 900 MG/50 ML PIGGYBACK 50 MG IVPB (09:49)
[2020-03-07] MEDS: LIDO 1%/EPINEPHRINE 1:100,000 20 ML VIAL 10 ML INFILTRATE (09:49)
[2020-03-07] MEDS: KETOROLAC 30 MG/ML VIAL (*BKC) IV PUSH (10:23)
[2020-03-07 10:33] VITALS: BP 117/62; PULSE 76; RESP 16; O2SAT 96
--- NOTE | 2020-03-07 10:36 | SUR.OPER ---
EBL:10cc
[2020-03-07 11:00] VITALS: BP 123/66; PULSE 65; RESP 18; O2SAT 97
[2020-03-07 11:20] VITALS: BP 121/56; PULSE 69; RESP 16; O2SAT 98
== END 2020-03-07 11:30 | disposition home or self-care (01) ==
PROVIDERS: PCP Internal Medicine; Visit Provider Surgery Plastic and Reconstructive Surgery
PROC: (CPT 21552; principal; 2020-03-07 10:00)
DX: D17.0 Benign lipomatous neoplasm of skin and subcutaneous tissue of head, face and neck (principal); I10 Essential (primary) hypertension; E11.42 Type 2 diabetes mellitus with diabetic polyneuropathy; Z79.84 Long term (current) use of oral hypoglycemic drugs; I25.10 Atherosclerotic heart disease of native coronary artery without angina pectoris; G47.33 Obstructive sleep apnea (adult) (pediatric); Z95.5 Presence of coronary angioplasty implant and graft; E66.9 Obesity, unspecified; Z68.41 Body mass index [BMI] 40.0-44.9, adult; F41.9 Anxiety disorder, unspecified; I89.0 Lymphedema, not elsewhere classified; Z88.1 Allergy status to other antibiotic agents; Z91.041 Radiographic dye allergy status; Z79.02 Long term (current) use of antithrombotics/antiplatelets; Z79.82 Long term (current) use of aspirin; Z79.899 Other long term (current) drug therapy; F17.210 Nicotine dependence, cigarettes, uncomplicated
CPT/HCPCS: 21552; 88304; A9270; J1885; J2250; J2405; J2704; J3010; J7120

== ENCOUNTER 2020-04-11 07:46 | Outpatient (CLI) | payer BC, SELFPAY ==
--- NOTE | ~2020-04-11 | CT_ITS ---
EXAMINATION: CT chest w con DATE: 04/11/2020 08:16 INDICATION: nodules and right hilar lymph node R91.8 Other nonspecific abnormal finding of lung field TECHNIQUE: Computed tomography (CT) of the chest was performed without intravenous contrast. Addition al 3D reconstructions utilizing coronal maximum intensity projection (MIP) were performed. Automated exposure control and iterative reconstruction technique were employed. The dose-length product was 62 1.85 mGy-cm. COMPARISON: 11/11/2019 and 07/20/2019 FINDINGS: No interval change in size or number of multiple scattered 6 mm or smaller bilateral pulmonary nodule s which are more numerous in the right lung. No pneumonia or other airspace disease, pulmonary edema or pleural effusion. Heart size is normal. Atherosclerotic coronary artery calcific a cyst. No perica rdial effusion. Thoracic aorta is normal in caliber with no dissection. Unchanged 2.3 x 1.3 cm right hilar lymph node. No new or enlarging thoracic lymphadenopathy. Small intramuscular lipoma along the left diaphragm muscle. Diffuse hepatic steatosis. Mild thoracic spondylosis. IMPRESSION: 1. No interval change in multiple 6 cm smaller bilateral pulmonary nodules which given stability are most likely sequela of old granulomatous disease. 2. Unchanged likely reactive 2.3 x 1.3 cm right hilar lymph node. No new or enlarging lymphadenopathy . 3. Diffuse hepatic steatosis. Reviewed, dictated and finalized at location B. RVENTIONAL PAIN PHYSICIAN IMPRESSION: 1. No interval change in multiple 6 cm smaller bilateral pulmonary nodules whic h given stability are most likely sequela of old granulomatous disease. 2. Unchanged likely reactive 2.3 x 1.3 cm right hilar lymph node. No new or enl arging lymphadenopathy. 3. Diffuse hepatic steatosis.
[2020-04-11 11:24] LABS: Estimated Glomerular Filt Rate > 60
== END 2020-04-11 07:47 | disposition home or self-care (01) ==
PROVIDERS: PCP Internal Medicine; Visit Provider Internal Medicine Critical Care Medicine
DX: R91.8 Other nonspecific abnormal finding of lung field (principal); K76.0 Fatty (change of) liver, not elsewhere classified
CPT/HCPCS: 71260; Q9967

== ENCOUNTER 2020-10-10 07:49 | Outpatient (CLI) | payer BC, SELFPAY ==
--- NOTE | ~2020-10-10 | US_ITS ---
US soft tissue lower back 10/10/2020 08:13 Indication: Palpable lump on lower back Procedure: High-resolution ultrasound of the right lower back in the area of palpable concern Comparison: No prior studies for comparison. Findings: In the area of palpable concern there is oval slightly hypoechoic circumscribed mass with i nternal striations which are perpendicular to the skin surface. This mass measures 2.1 x 0.7 x 1.8 cm . No internal vascularity. No posterior features. Impression: 1: Oval solid slightly hypoechoic circumscribed mass in the area of palpable concern, most likely lindy ign lipoma. Consider follow-up ultrasound if changes occur on physical examination. Reviewed, dictated and finalized at location A. Impression: 1: Oval solid slightly hypoechoic circumscribed mass in the area of palpable co ncern, most likely benign lipoma. Consider follow-up ultrasound if changes occu r on physical examination.
== END 2020-10-10 07:50 | disposition home or self-care (01) ==
PROVIDERS: PCP Internal Medicine; Visit Provider Internal Medicine
DX: R22.2 Localized swelling, mass and lump, trunk (principal)
CPT/HCPCS: 76705

== ENCOUNTER 2020-11-30 08:39 | Outpatient (CLI) | payer BC, SELFPAY ==
--- NOTE | ~2020-11-30 | XR_ITS ---
EXAMINATION: XR lumbar spine 6V w bending DATE: 11/30/2020 09:02 INDICATION: Low back pain TECHNIQUE: Anteroposterior, lateral in neutral, flexion and extension, and bilateral oblique views of the lumbar spine, and cone-down lateral view of the lumbosacral junction were obtained. COMPARISON: 09/10/2018 FINDINGS: There are 3 mm of stable retrolisthesis of L5 on S1. No laxity is present with flexion or e xtension. The vertebral body heights are maintained. There is mild loss of intervertebral disc space height at L5-S1. Small degenerative osteophytes project from the anterior endplates of multiple verte bral bodies. Mild facet osteoarthritis is noted in the lower lumbar spine. There is calcified atheros clerosis of the aorta. IMPRESSION: 1. Mild lumbar spondylosis without acute findings or significant interval change. Reviewed, dictated and finalized at location A. IMPRESSION: 1. Mild lumbar spondylosis without acute findings or significant interval roseanne pacheco
== END 2020-11-30 08:40 | disposition home or self-care (01) ==
LOC: ANHIMG 08:45
PROVIDERS: PCP Internal Medicine; Visit Provider Internal Medicine
DX: M47.896 Other spondylosis, lumbar region (principal)
CPT/HCPCS: 72114

== ENCOUNTER 2021-01-03 11:57 | Emergency (ER) | payer OTHER, BC, SELFPAY ==
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
[2021-01-03 12:00] VITALS: BP 156/80; PULSE 89; RESP 20; O2SAT 99
[2021-01-03] MEDS: MORPHINE SULFATE (*CRX) 4 MG/ML INJ IV PUSH (12:42)
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
[2021-01-03 13:00] VITALS: BP 148/82; PULSE 80; RESP 20; O2SAT 100
[2021-01-03 14:00] VITALS: BP 148/81; PULSE 81; RESP 18; O2SAT 98
[2021-01-03 14:35] VITALS: BP 152/82; PULSE 82; RESP 18; TEMP 36.8; O2SAT 99
== END 2021-01-03 14:35 | disposition home or self-care (01) ==
PROVIDERS: Emergency Provider Emergency Medicine; PCP Internal Medicine
DX: S50.12XA Contusion of left forearm, initial encounter (principal); S16.1XXA Strain of muscle, fascia and tendon at neck level, initial encounter; E53.8 Deficiency of other specified B group vitamins; I89.0 Lymphedema, not elsewhere classified; E11.42 Type 2 diabetes mellitus with diabetic polyneuropathy; G47.33 Obstructive sleep apnea (adult) (pediatric); M35.00 Sjogren syndrome, unspecified; M17.11 Unilateral primary osteoarthritis, right knee; M19.032 Primary osteoarthritis, left wrist; M19.022 Primary osteoarthritis, left elbow; Z87.442 Personal history of urinary calculi; Z98.49 Cataract extraction status, unspecified eye; Z96.1 Presence of intraocular lens; F17.210 Nicotine dependence, cigarettes, uncomplicated; Z79.82 Long term (current) use of aspirin; M47.814 Spondylosis without myelopathy or radiculopathy, thoracic region; V43.52XA Car driver injured in collision with other type car in traffic accident, initial encounter
CPT/HCPCS: 70450; 71046; 72072; 72125; 73080; 73090; 73110; 73140; 73562; 96374; 99284; J2270; L0140

== ENCOUNTER 2021-01-09 09:09 | Outpatient (CLI) | payer OTHER, BC, SELFPAY ==
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
--- NOTE | ~2021-01-09 | XR_ITS ---
EXAMINATION: XR wrist RT 2V INDICATION: Right wrist pain TECHNIQUE: Four views of the right wrist are obtained. COMPARISON: 10/12/2019 FINDINGS: There is no fracture, dislocation, or subluxation. Mild osteoarthritis is again noted at th e radioscaphoid and first carpometacarpal joints. There is mild soft tissue swelling of the wrist. IMPRESSION: 1. No acute osseous abnormality. Reviewed, dictated and finalized at location A.
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
== END 2021-01-09 09:10 | disposition home or self-care (01) ==
LOC: ANHIMG 09:18
PROVIDERS: PCP Internal Medicine; Visit Provider Internal Medicine
DX: M25.529 Pain in unspecified elbow (principal); M54.5 Low back pain; M79.643 Pain in unspecified hand; R07.89 Other chest pain; M25.431 Effusion, right wrist; M25.531 Pain in right wrist; R58 Hemorrhage, not elsewhere classified; M79.89 Other specified soft tissue disorders; M19.031 Primary osteoarthritis, right wrist; M19.041 Primary osteoarthritis, right hand
CPT/HCPCS: 71120; 72100; 72170; 73080; 73100; 73110; 73130

== ENCOUNTER 2021-03-26 08:59 | Outpatient (CLI) | payer BC, SELFPAY ==
--- NOTE | 2021-03-26 11:00 | NEURO_ITS ---
Impression: # Complains of numbness of lower extremities. # Normal nerve conduction study. # Normal needle/EMG exam. # Symptomatology could be related to small fiber neuropathy; Possibility of higher involvement cannot be ruled out. Nerve Conduction Studies Anti Sensory Summary Table Stim Site NR Peak (ms) P-T Amp (?V) Site1 Site2 Delta-P (ms) Dist (cm) Jemal (m/s) Left Sup Fibular Anti Sensory (Ant Lat Mall) 14 cm 3.6 25.2 14 cm Ant Lat Mall 3.6 16.0 44 Right Sup Fibular Anti Sensory (Ant Lat Mall) 14 cm 3.5 25.2 14 cm Ant Lat Mall 3.5 16.0 46 Left Sural Anti Sensory (Lat Mall) Calf 3.4 12.8 Calf Lat Mall 3.4 16.0 47 Right Sural Anti Sensory (Lat Mall) Calf 3.9 20.4 Calf Lat Mall 3.9 16.0 41 Motor Summary Table Stim Site NR Onset (ms) O-P Amp (mV) Site1 Site2 Delta-0 (ms) Dist (cm) Jemal (m/s) Left Lateral Plantar Motor (ADM) Med Mall 4.5 0.9 Right Lateral Plantar Motor (ADM) Med Mall 4.6 1.6 Left Peroneal Motor (Vastus Med) Ankle 4.2 3.6 Popit Ankle 8.8 39.0 44 Popit 13.0 2.9 Right Peroneal Motor (Vastus Med) Ankle 4.9 1.9 Popit Ankle 9.2 37.0 40 Popit 14.1 0.8 Left Tibial Motor (Abd Childs Brev) Ankle 4.8 4.8 Knee Ankle 9.6 41.0 43 Knee 14.4 2.8 Right Tibial Motor (Abd Childs Brev) Ankle 5.1 2.5 Knee Ankle 9.0 41.0 46 Knee 14.1 1.7 F Wave Studies NR F-Lat (ms) L-R F-Lat (ms) Left Peroneal (Mrkrs) (EDB) 52.93 0.86 Right Peroneal (Mrkrs) (EDB) 53.79 0.86 Left Tibial (Mrkrs) (Abd Hallucis) 53.72 0.40 Right Tibial (Mrkrs) (Abd Hallucis) 54.12 0.40 EMG Side Muscle Nerve Root Ins Act Fibs Amp Dur Recrt Comment Right AntTibialis Dp Br Fibular L4-5 Nml Nml Nml Nml Nml Right Gastroc Tibial S1-2 Nml Nml Nml Nml Nml Right Fibularis Long Sup Br Fibular L5-S1 Nml Nml Nml Nml Nml Right Flex Dig Long Tibial L5-S2 Nml Nml Nml Nml Nml Right Ext Dig Brev Dp Br Fibular L5, S1 Nml Nml Nml Nml Nml Left AntTibialis Dp Br Fibular L4-5 Nml Nml Nml Nml Nml Left Gastroc Tibial S1-2 Nml Nml Nml Nml Nml Left Fibularis Long Sup Br Fibular L5-S1 Nml Nml Nml Nml Nml Left Flex Dig Long Tibial L5-S2 Nml Nml Nml Nml Nml Left Ext Dig Brev Dp Br Fibular L5, S1 Nml Nml Nml Nml Nml MTDD
== END 2021-03-26 09:00 | disposition home or self-care (01) ==
PROVIDERS: PCP Internal Medicine; Visit Provider Internal Medicine
DX: G62.9 Polyneuropathy, unspecified (principal)
CPT/HCPCS: 95886; 95911

== ENCOUNTER 2021-04-14 09:10 | Outpatient (CLI) | payer BC, SELFPAY ==
--- NOTE | ~2021-04-14 | CT_ITS ---
EXAMINATION: CT lung screening DATE: 04/14/2021 09:40 INDICATION: Lung nodules TECHNIQUE: Computed tomography (CT) of the chest was performed without intravenous contrast. The dose -length product was 258.16 mGy-cm. Automated exposure control and iterative reconstruction technique were employed. COMPARISON: CT dated 04/11/2020 FINDINGS: Heart size normal. There is atherosclerosis of the aorta and coronary arteries. No signific ant pleural or pericardial effusion. There is fatty infiltration of the liver. Borderline size right paratracheal lymph node, likely reactive. Thyroid gland is unremarkable. No endobronchial lesion. No pneumothorax. There is a 5 mm right upper lobe nodule, image 40. There is a 3 mm right upper lobe nod ule there are additional scattered nodules in both lungs measuring 3 mm or less. There is a 7 mm righ t lower lobe nodule, image 83. Mild emphysema. No endobronchial lesions. Mild thoracic spondylosis. N o lytic or blastic lesions are identified. IMPRESSION: 1. Lung-RADS category 3: Probably benign. Further evaluation is recommended with noncontrast low-dose chest CT in 6 months. Reviewed, dictated and finalized at location A. 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 Lung-RADS category 3: Probably benign. Further evaluation is recommended wit h noncontrast low-dose chest CT in 6 months.
== END 2021-04-14 09:11 | disposition home or self-care (01) ==
LOC: ANHIMG 09:13
PROVIDERS: PCP Internal Medicine; Visit Provider Internal Medicine Critical Care Medicine
DX: Z87.891 Personal history of nicotine dependence (principal)
CPT/HCPCS: 71271

== ENCOUNTER 2021-06-07 09:41 | Outpatient (CLI) | payer BC, SELFPAY ==
--- NOTE | ~2021-06-07 | XR_ITS ---
EXAMINATION: XR chest 2V EXAM DATE: 06/07/2021 10:00 INDICATION: Posterior rib pain w coughing, hx: smoker, sob, htn, dm . TECHNIQUE: Frontal and lateral projections of the chest obtained and reviewed. Comparison is made to prior examination from 01/09/2021. FINDINGS: Moderate chronic appearing hyperinflation. The lungs are clear. There are no pleural effu sions. The cardiomediastinal silhouette is within normal limits. There is no pneumothorax suspected . The bones and soft tissues are unremarkable. IMPRESSION: No acute cardiopulmonary findings. Reviewed, dictated and finalized at location B. DRIVER
== END 2021-06-07 09:42 | disposition home or self-care (01) ==
LOC: ANHIMG 09:45
PROVIDERS: PCP Internal Medicine; Visit Provider Internal Medicine
DX: R05.9 Cough, unspecified (principal)
CPT/HCPCS: 71046

== ENCOUNTER 2021-09-21 13:52 | Outpatient (RCR) | payer BC, SELFPAY ==
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
== END 2021-09-25 10:30 | disposition home or self-care (01) ==
LOC: ANHPT 13:52
PROVIDERS: PCP Internal Medicine; Visit Provider Internal Medicine
DX: M54.50 Low back pain, unspecified (principal); M25.561 Pain in right knee; M19.90 Unspecified osteoarthritis, unspecified site; G89.29 Other chronic pain
CPT/HCPCS: 97161; 97530

== ENCOUNTER 2021-10-19 09:10 | Outpatient (CLI) | payer BC, SELFPAY ==
--- NOTE | ~2021-10-19 | CT_ITS ---
EXAMINATION: CT diagnostic chest wo con DATE: 10/19/2021 09:41 INDICATION: Pulmonary nodules TECHNIQUE: Computed tomography (CT) of the chest was performed without intravenous contrast. The dose -length product (DLP) was 04/24/2021 mGy-cm. Automated exposure control and iterative reconstruction technique were employed. COMPARISON: 04/14/2021, 04/11/2020, 11/11/2019 FINDINGS: There are scattered, stable pulmonary nodules throughout the lungs which measure up to 6 mm in the right lower lobe. No new or suspicious pulmonary nodule is identified. The lungs are free of acute opacities. There is mild emphysema. No pleural effusion or pneumothorax. There is chronic mild atelectasis of the lingula. The heart size is normal. Calcified coronary artery atherosclerosis is no shellie. There are no pathologically enlarged thoracic lymph nodes. IMPRESSION: 1. Lung-RADS category 2: Benign appearance or behavior. Continue annual screening with noncontrast lo w-dose chest CT in 12 months. Reviewed, dictated and finalized at location F. IMPRESSION: 1. Lung-RADS category 2: Benign appearance or behavior. Continue annual screeni ng with noncontrast low-dose chest CT in 12 months.
== END 2021-10-19 09:11 | disposition home or self-care (01) ==
PROVIDERS: PCP Internal Medicine; Visit Provider Nurse Practitioner Family
DX: R91.8 Other nonspecific abnormal finding of lung field (principal)
CPT/HCPCS: 71250

== ENCOUNTER 2022-02-27 11:12 | Outpatient (CLI) | payer BC, SELFPAY ==
--- NOTE | ~2022-02-27 | MM_ITS ---
EXAMINATION: MM screening sloan BI w sita HISTORY: Screening TECHNIQUE: Craniocaudal and mediolateral oblique 3-D tomosynthesis images were obtained and synthetic 2-D images were generated. CAD analysis was submitted and interpreted. COMPARISON: Comparison to multiple prior studies sequentially, with oldest reviewed study dated 06/2011. BREAST PARENCHYMAL COMPOSITION: The breasts are almost entirely fatty. FINDINGS: There is no evidence of suspicious mass, calcification, or architectural distortion to sugg est malignancy in either breast. There has been no suspicious interval change. IMPRESSION: 1. No mammographic evidence of malignancy. 2. Recommend routine screening mammography in one year. BI-RADS Category 1: Negative Reviewed, dictated and finalized at location A.
== END 2022-02-27 11:13 | disposition home or self-care (01) ==
PROVIDERS: PCP Internal Medicine; Visit Provider Obstetrics & Gynecology
DX: Z12.31 Encounter for screening mammogram for malignant neoplasm of breast (principal)
CPT/HCPCS: 77063; 77067

== ENCOUNTER 2022-06-26 15:24 | Outpatient (CLI) | payer BC, SELFPAY ==
[2022-06-26 15:47] LABS: Appearance Urine Cloudy (Clear); Bacteria Urine 3+ /hpf; Bilirubin Urine Negative (Negative); Blood Urine 2+ (Negative); Color Urine Yellow (Yellow); Glucose Urine UA Negative (Negative); Ketones Urine Trace mg/dL (Negative); Leukocyte Esterase Ur 2+ LEU/UL (Negative); Nitrate Urine Positive (Negative); Non Pathogenic Casts 0-2; Protein Urine 1+ mg/dL (Negative); RBC Urine 21-50 /hpf (0-2); Specific Grav Ur 1.022 (1.001-1.035); Squamous Epithelial Cell Urine Few /hpf (Few); WBC Urine 51-100 /hpf; pH Urine 5.5 (5.0-9.0)
[2022-06-26 15:58] LABS: Add Urine Microscopic? YES
== END 2022-06-26 15:25 | disposition home or self-care (01) ==
LOC: ANHLAB 15:27
PROVIDERS: PCP Internal Medicine; Visit Provider Internal Medicine
DX: R39.9 Unspecified symptoms and signs involving the genitourinary system (principal)
CPT/HCPCS: 81001; 87077; 87086; 87186

== ENCOUNTER 2022-07-10 11:50 | Outpatient (CLI) | payer BC, SELFPAY ==
--- NOTE | ~2022-07-10 | XR_ITS ---
EXAMINATION: XR abdomen/kub 1V DATE: 07/10/2022 12:08 INDICATION: Hematuria. TECHNIQUE: A supine view of the abdomen on 2 radiographs was obtained. COMPARISON: CT abdomen and pelvis 02/29/2020 FINDINGS: There are no dilated loops of bowel. There is a small volume of stool in the colon. There i s no visible urolithiasis. IMPRESSION: 1. No visible urolithiasis. Reviewed, dictated and finalized at location A. IMPRESSION: 1. No visible urolithiasis.
== END 2022-07-10 11:51 | disposition home or self-care (01) ==
PROVIDERS: PCP Internal Medicine; Visit Provider Internal Medicine
DX: R31.9 Hematuria, unspecified (principal)
CPT/HCPCS: 74018

== ENCOUNTER 2022-07-29 09:22 | Outpatient (CLI) | payer BC, SELFPAY ==
--- NOTE | ~2022-07-29 | XR_ITS ---
EXAMINATION: XR chest 2V DATE: 07/29/2022 09:41 INDICATION: Shortness of breath TECHNIQUE: PA and lateral views of the chest are obtained. COMPARISON: 06/07/2021 FINDINGS: The lungs are free of acute opacities. No pleural effusion or pneumothorax. The cardiomedia stinal silhouette is normal. There is mild thoracic spondylosis. IMPRESSION: 1. No acute cardiopulmonary abnormality. Reviewed, dictated and finalized at location B.
[2022-07-29 10:00] LABS: Basophils Percent Auto 0.4 % (0.2-1.2); Eosinophils Absolute Auto 0.2 K/mm3 (0-0.3); Eosinophils Percent Auto 2.6 % (0-4.4); Hematocrit 44.9 % (37.0-47.0); Immature Granulocyte Absolute 0.08 K/mm3 (0.00-0.031); Lymphocytes Percent Auto 34.6 % (18.3-44.2); Mean Corpuscular HGB Conc 33.4 g/dl (32-36); Mean Corpuscular Hemoglobin 32.2 pg (26-34); Mean Corpuscular Volume 96.4 fl (80-100); Mean Platelet Volume 10.5 fl (7.4-10.4); Monocytes Absolute Auto 0.5 K/mm3 (0.1-0.6); Monocytes Percent Auto 5.9 % (2.6-8.5); Neutrophils Absolute Auto 4.3 K/mm3 (1.3-6.7); Neutrophils Percent Auto 55.5 % (45.5-73.1); Platelet Count Result 227 k/mm3 (150-375); Red Blood Count 4.66 M/mm3 (4.2-5.4); Red Cell Distribution Width 13.8 % (11.5-14.5); White Blood Count 7.8 K/mm3 (4.5-10.0)
== END 2022-07-29 09:23 | disposition home or self-care (01) ==
PROVIDERS: PCP Internal Medicine; Visit Provider Internal Medicine
DX: R05.9 Cough, unspecified (principal)
CPT/HCPCS: 36415; 71046; 85025

== ENCOUNTER 2022-08-26 14:02 | Outpatient (CLI) | payer BC, SELFPAY ==
--- NOTE | ~2022-08-26 | XR_ITS ---
EXAM: XR sinus min 3V DATE: 08/26/2022 14:27 HISTORY: J32.9 - Chronic sinusitis, unspecified, nasal congestion . COMPARISON: 07/20/2019. FINDINGS: Normal mineralization. No fracture or dislocation. No lytic or blastic lesion. Joint space s and physes are maintained. No erosion or periosteal change. Dental restorations. Soft tissues withi n normal limits. IMPRESSION: Unremarkable sinus radiograph findings. Reviewed, dictated and finalized at location K.
== END 2022-08-26 14:03 | disposition home or self-care (01) ==
PROVIDERS: PCP Internal Medicine; Visit Provider Internal Medicine
DX: J32.9 Chronic sinusitis, unspecified (principal); R09.81 Nasal congestion
CPT/HCPCS: 70220

== ENCOUNTER 2022-11-06 09:23 | Outpatient (CLI) | payer BC, SELFPAY ==
--- NOTE | ~2022-11-06 | CT_ITS ---
EXAMINATION: CT lung screening DATE: 11/06/2022 09:47 INDICATION: Z87.891 - Personal history of nicotine dependence TECHNIQUE: Computed tomography (CT) of the chest was performed without intravenous contrast. Addition al 3D reconstructions utilizing coronal maximum intensity projection (MIP) were performed. Automated exposure control and iterative reconstruction technique were employed. The dose-length product was 21 7.79 mGy-cm. COMPARISON: 10/19/2021 FINDINGS: New peripheral region of thin linear and slightly thicker bandlike consolidation in the superior segm ent of the right lower lobe which could represent pneumonia or atelectasis. Additional mild linear di scoid atelectasis at the posterior sulci of the bilateral lower lobes. Stable appearance of multiple scattered bilateral pulmonary nodules, the largest measuring up to 6 mm in the right lower lobe. No d efinitively new or enlarging pulmonary nodules identified. Unchanged linear band of discoid atelectas is/scarring at the lingula. No pulmonary edema or pleural effusion. Heart size is normal. Atheroscler otic coronary artery calcifications. No pericardial effusion. Thoracic aorta is normal in caliber. No pathologically enlarged thoracic lymphadenopathy. Diffuse hepatic steatosis. Mild thoracic spondylos is. IMPRESSION: 1. . Lung-RADS category 2: Benign appearance or behavior. Continue annual screening with noncontrast low-dose chest CT in 12 months. 2. New small region of bandlike consolidation in the superior segment of the right lower lobe which c ould represent pneumonia and/or atelectasis. 3. Diffuse hepatic steatosis. Reviewed, dictated and finalized at location A. IMPRESSION: 1. . Lung-RADS category 2: Benign appearance or behavior. Continue annual scree ashley with noncontrast low-dose chest CT in 12 months. 2. New small region of bandlike consolidation in the superior segment of the ri ght lower lobe which could represent pneumonia and/or atelectasis. 3. Diffuse hepatic steatosis.
== END 2022-11-06 09:24 | disposition home or self-care (01) ==
PROVIDERS: PCP Internal Medicine; Visit Provider Physician Assistant
DX: Z12.2 Encounter for screening for malignant neoplasm of respiratory organs (principal); Z87.891 Personal history of nicotine dependence; K76.0 Fatty (change of) liver, not elsewhere classified
CPT/HCPCS: 71271

== ENCOUNTER 2023-01-29 09:37 | Outpatient (CLI) | payer BC, SELFPAY ==
[2023-01-29 10:48] LABS: Anion Gap 11 mmol/L (8-16); Blood Urea Nitrogen 11 mg/dL (7-17); Calcium 9.8 mg/dL (8.4-10.2); Carbon Dioxide 26 mmol/L (22-30); Chloride 102 mmol/L (98-107); Estimated Glomerular Filt Rate > 60; Glucose 100 mg/dL (65-110); Potassium 4.1 mmol/L (3.4-5.0); Sodium 139 mmol/L (137-145)
== END 2023-01-29 09:38 | disposition home or self-care (01) ==
PROVIDERS: PCP Internal Medicine; Visit Provider Internal Medicine
DX: K52.9 Noninfective gastroenteritis and colitis, unspecified (principal)
CPT/HCPCS: 36415; 80048

== ENCOUNTER 2023-01-30 10:52 | Outpatient (CLI) | payer BC, SELFPAY | END 2023-01-30 10:53 | disposition home or self-care (01) | LOC: ANHLAB 10:54 | PROVIDERS: PCP Internal Medicine; Visit Provider Internal Medicine | DX: K52.9 Noninfective gastroenteritis and colitis, unspecified (principal) | CPT/HCPCS: 87045; 87177; 87209; 87427; 87449; 89055 ==

== ENCOUNTER 2023-03-13 07:54 | Outpatient (CLI) | payer BC, SELFPAY ==
--- NOTE | ~2023-03-13 | CT_ITS ---
EXAMINATION: CT soft tissue neck w con DATE: 03/13/2023 08:34 INDICATION: Localized swelling, mass and lump, neck, right side. TECHNIQUE: Computed tomography (CT) of the neck was performed with 75 mL Omnipaque-350 intravenous co ntrast. Automated exposure control and iterative reconstruction technique were employed. The dose-abel gth product was 582.86 mGy-cm. COMPARISON: None FINDINGS: There are likely changes of ocular lens replacement surgeries. There is plaque in the proxi mal internal carotid arteries with less than 50% stenosis relative to normal distal artery lumen diam eters. There is a 6 mm nodule in right thyroid lobe, likely not clinically significant. There is mild right paratracheal lymphadenopathy, likely reactive. The major salivary glands are normal. The masto id air cells are normal. The paranasal sinuses are clear. There is mild cervical spondylosis. IMPRESSION: 1. No abnormal mass or lymphadenopathy in the patient's area of concern in right neck. Reviewed, dictated and finalized at location A. TRAINING SUPERVISOR IMPRESSION: 1. No abnormal mass or lymphadenopathy in the patient's area of concern in righ t neck.
[2023-03-13 08:22] LABS: Estimated Glomerular Filt Rate > 60
== END 2023-03-13 07:55 | disposition home or self-care (01) ==
PROVIDERS: PCP Internal Medicine; Visit Provider Internal Medicine
DX: R22.1 Localized swelling, mass and lump, neck (principal)
CPT/HCPCS: 70491; Q9967

== ENCOUNTER 2023-07-08 09:51 | Outpatient (CLI) | payer BC, SELFPAY ==
--- NOTE | ~2023-07-08 | XR_ITS ---
Left Knee Technique: AP, lateral, and sunrise views were obtained. Clinical History: Pain Findings: No fracture or dislocation is seen. Osseous alignment is anatomic. Joint spaces are preserv ed without degenerative or erosive change. Prepatellar soft tissue thickening is present. No joint ef fusion is seen. Impression: Prominent prepatellar soft tissue thickening/edema. Correlate for posttraumatic change or prepatellar bursitis. No fracture or dislocation. Reviewed, dictated and finalized at location . Impression: Prominent prepatellar soft tissue thickening/edema. Correlate for posttraumatic change or prepatellar bursitis. No fracture or dislocation.
--- NOTE | ~2023-07-08 | US_ITS ---
EXAMINATION: US venous doppler [facility] DATE: 07/08/2023 13:59 INDICATION: Left knee pain, swelling and erythema TECHNIQUE: Grayscale ultrasound images without and with compression and Doppler ultrasound images of the left lower extremity veins were obtained. COMPARISON: None. FINDINGS: The visualized portions of left common femoral vein, profunda (deep) femoral vein, femoral vein, popl iteal vein, peroneal veins, posterior tibial veins and greater saphenous vein are patent. There is a hypoechoic region measuring at least 5.5 cm medial collateral and 1.1 cm in AP thickness overlying th e patella most likely either a prepatellar hematoma or bursitis. IMPRESSION: 1. No deep venous thrombosis in the left lower limb. 2. Hypoechoic prepatellar likely complex fluid collection which could represent either bursitis with synovitis or hematoma in the appropriate clinical setting. Reviewed, dictated and finalized at location L. IMPRESSION: 1. No deep venous thrombosis in the left lower limb. 2. Hypoechoic prepatellar likely complex fluid collection which could represent either bursitis with synovitis or hematoma in the appropriate clinical setting .
== END 2023-07-08 09:52 | disposition home or self-care (01) ==
PROVIDERS: PCP Internal Medicine; Visit Provider Internal Medicine
DX: M25.462 Effusion, left knee (principal); M79.605 Pain in left leg; M79.89 Other specified soft tissue disorders
CPT/HCPCS: 73564; 93971; J1100; J2371; J2405; J2704

== ENCOUNTER 2023-11-03 08:10 | Outpatient (CLI) | payer BC, SELFPAY ==
--- NOTE | ~2023-11-03 | US_ITS ---
EXAMINATION: US venous doppler [facility] DATE: 11/03/2023 08:35 INDICATION: Lower limb pain TECHNIQUE: Grayscale ultrasound images without and with compression and Doppler ultrasound images of the bilateral lower extremity veins were obtained. COMPARISON: None. FINDINGS: The visualized portions of right common femoral vein, profunda (deep) femoral vein, femoral vein, pop liteal vein, posterior tibial veins, peroneal veins, gastrocnemius vein and greater saphenous vein ou tflow are patent. The visualized portions of left common femoral vein, profunda femoral vein, femoral vein, popliteal v ein, posterior tibial veins, peroneal veins, gastrocnemius vein and greater saphenous vein outflow ar e patent. IMPRESSION: 1. No deep venous thrombosis in either lower limb. Reviewed, dictated and finalized at location A.
== END 2023-11-03 08:11 ==
LOC: GOSHIMG 08:10
PROVIDERS: PCP Internal Medicine; Visit Provider Internal Medicine
DX: M79.606 Pain in leg, unspecified (principal); M79.89 Other specified soft tissue disorders
CPT/HCPCS: 93970

== ENCOUNTER 2023-11-12 08:16 | Outpatient (CLI) | payer BC, SELFPAY ==
--- NOTE | ~2023-11-12 | CT_ITS ---
CT Scan of the Chest without Contrast: Clinical Indication: Lung cancer screening, nicotine dependence Technique: Contiguous sections were acquired throughout the chest without intravenous contrast. Dose reduction technique was used on this scan by utilizing automated exposure control and iterative recon struction technique. The dose-length product (DLP) was 258.57 mGy-cm. COMPARISON: 11/06/2022 Findings: There is no evidence of any significant mediastinal, hilar or axillary lymphadenopathy. Extensive cor onary artery calcium cages are present. There is no evidence of pleural or pericardial effusion. Stable 6 mm probable groundglass right lower lobe pulmonary nodule. Stable additional 6 mm right lowe r lobe pulmonary nodule (axial image 78). Images through the upper abdomen reveal diffuse hepatic steatosis. Impression: Lung RADS 2: Benign appearance. 12 month follow-up screening CT advised. Reviewed, dictated and finalized at [facility]. Impression: Lung RADS 2: Benign appearance. 12 month follow-up screening CT advised.
== END 2023-11-12 08:17 ==
PROVIDERS: PCP Internal Medicine; Visit Provider Physician Assistant
DX: Z12.2 Encounter for screening for malignant neoplasm of respiratory organs (principal); Z87.891 Personal history of nicotine dependence
CPT/HCPCS: 71271

== ENCOUNTER 2024-03-31 08:18 | Outpatient (CLI) | payer BC, SELFPAY ==
--- NOTE | ~2024-03-31 | US_ITS ---
EXAMINATION: US soft tissue buttock RT, US soft tissue lower back DATE: 03/31/2024 08:38 INDICATION: Localized swelling, mass and lump at the right buttock and mid lower back. TECHNIQUE: Multiple grayscale and Doppler ultrasound images of the region of concern at the right but tock and midline of the lower back were obtained. COMPARISON: None FINDINGS: At the right buttock there is a relatively superficial 3.3 x 3.4 x 1.2 cm ovoid mass which is hypoech oic with identical echogenicity and internal septated architecture as the surrounding subcutaneous fa t most consistent with a lipoma. There is a similar-appearing 2.7 x 1.8 x 1.1 cm superficial ovoid chiang bcutaneous mass at the second region of concern at the midline of the lower back also most consistent with a lipoma. IMPRESSION: 1. The palpable masses of concern corresponds to a 3.4 x 3.3 x 1.2 cm ovoid subcutaneous mass at the right buttock and a second similar-appearing 2.7 x 1.8 x 1.1 cm ovoid subcutaneous mass at the midlin e of the lower back appearance of which is most consistent with and which are statistically most like ly to represent lipomas. Reviewed, dictated and finalized at location A. ILLER IMPRESSION: 1. The palpable masses of concern corresponds to a 3.4 x 3.3 x 1.2 cm ovoid sub cutaneous mass at the right buttock and a second similar-appearing 2.7 x 1.8 x 1.1 cm ovoid subcutaneous mass at the midline of the lower back appearance of w hich is most consistent with and which are statistically most likely to represe nt lipomas.
== END 2024-03-31 08:19 | disposition home or self-care (01) ==
PROVIDERS: PCP Internal Medicine; Visit Provider Internal Medicine
DX: R22.2 Localized swelling, mass and lump, trunk (principal)
CPT/HCPCS: 76705

== ENCOUNTER 2024-05-18 10:07 | Outpatient (CLI) | payer BC, SELFPAY ==
--- NOTE | ~2024-05-18 | CT_ITS ---
Non-contrast CT scan of the Abdomen Clinical indication: Abdominal mass/swelling Technique: 2.5 mm axial scans were obtained through the abdomen without intravenous or oral contrast . Dose reduction technique was used on this scan by utilizing automated exposure control and iterativ e reconstruction technique. The dose-length product (DLP) was 630.72 mGy-cm. Findings: Images through the lung bases reveal 4 mm right lower lobe pulmonary nodule (axial image 9 ). There is no evidence of renal or ureteral calculi. The kidneys and the ureters are nondilated. There is diffuse hepatic steatosis. The spleen, pancreas, gallbladder, and adrenals appear normal. Th ere are atherosclerotic calcifications of the aorta. Visualized bowel loops are unremarkable. No ascites seen. Small fat-containing umbilical hernia noted . Impression: Diffuse hepatic steatosis. Very small fat-containing umbilical hernia. 4 mm right basilar pulmonary nodule. This is stable as compared to prior chest CT dated 11/12/2023 Reviewed, dictated and finalized at [facility]. 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 Very small fat-containing umbilical hernia. 4 mm right basilar pulmonary nodule. This is stable as compared to prior chest CT dated 11/12/2023
== END 2024-05-18 10:08 | disposition home or self-care (01) ==
LOC: GOSHIMG 10:07
PROVIDERS: PCP Internal Medicine; Visit Provider Internal Medicine
DX: K42.9 Umbilical hernia without obstruction or gangrene (principal); R91.8 Other nonspecific abnormal finding of lung field; K76.0 Fatty (change of) liver, not elsewhere classified
CPT/HCPCS: 74150

== ENCOUNTER 2024-07-06 00:48 | Day surgery (SDC) | payer BC, SELFPAY ==
[2024-06-30 14:20] VITALS: BMI 41.2
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
--- OUTSIDE RECORDS SUMMARY | 2024-07-06 00:51 | XMS_ITS | Clinical Summary ---
Author Organization [facility] [place] [address] [facility] [address] Address [address] [place] [address] Care Team Providers Care Bobtailer Name Role Phone Soham Arnold MD Unavailable [phone] Jeaneth Funez MD Unavailable [phone] Walt Shetty MD Unavailable [phone] Jaime Cleaning MD Primary Care Provider [phone] Allergies Active Allergy Reactions Criticality Noted Date [...] capsule (240 mg total) by mouth daily [address] (CYMBALTA) 30 mg capsule Take 1 capsule (30 mg total) by mouth daily 5 Active Active Problems Problem Noted Date Diagnosed Date Status post insertion of drug eluting coronary a rtery stent 05/21/2024 Essential hypertension 09/16/2023 Coronary artery disease invo lving kiana coronary artery of kiana heart without angina pectoris 09/16/2023 Morbid obesity [...] B12 deficiency, Vit D deficiency, depression/anxiety, HTN, PARIL, psoriasis, IBS, GERD, Fibromyalgia, B carpal tunnel [...] symptoms. Encouraged her to return to her cnc service engineer for additional review of her facial redness [...] history of psoriasis on her elbows. Saw cnc service engineer in the past who provided topical agents with resolution of skin rashes. 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 Impaired glucose tolerance 04/27/2013 Standard chest x-ray abnormal 08/19/2012 Encounters Date Type Department Care Team Description 05/21/2024 3:30 PM ENROLLMENT PROCESSOR Office Visit [facility] Cardiology at [address] [place] [phone] Javier Melvin MD Coronary artery disease involving kiana coronary artery of kiana heart without angina pectoris (Primary Dx); Status post insertion of drug eluting coronary artery stent 05/14/2024 Telephone [facility] Cardiology [address] [place] [address] Javier Melvin MD Chest Pain 04/14/2024 Orders Only [facility] Card[facility] [address] [place] [address] Provider, MD Yogi from Last 3 Months Surgical History Surgery Date Site/Laterality Comments NC TOTAL ABDOMINAL HYSTERECT W/WO RMVL TUBE OVARY Hysterectomy - (Added by TW Conv) BREAST SURGERY Breast Surgery Enlargement Procedure Bilateral - (Added by TW Conv) NC TONSILLECTOMY PRIMARY/SECONDARY <AGE 12 Tonsillectomy - (Added by TW Conv) LIPECTOMY Lipectomy - (Added by TW Conv) TYMPANOSTOMY TUBE PLACEMENT Ear Pressure Equalization Tube, Insertion, Bilaterally - (Added by TW Conv) CATARACT EXTRACTION Bilateral CARPAL TUNNEL RELEASE Bilateral VULVA SURGERY Medical History Medical History Date Comments Personal history of other di seases of the musculoskeletal system and connective tissue History of fibromyositis - ( Added by TW Conv) Dysthymic disorder Major depress ion, chronic - (Added by TW Conv) Personal history of other di seases of the digestive system History of irritable bowel s yndrome - (Added by TW Conv) Personal history of other di seases of the digestive system History of esophageal reflux - (Added by TW Conv) Personal history of diseases of skin or subcutaneous tissue History of urticaria - (synchronizer jhon with negative allergy testing). (Added by TW Conv) Personal history of other en docrine, nutritional and metabolic disease History of hyperlipi demia - (Added by TW Conv) Vitamin D deficiency Vitamin D d eficiency - (Added by TW Conv) Deficiency of other specifie d B group vitamins Vitamin B12 deficiency - (Ad ded by TW Conv) Obstructive sleep apnea Obstruct sherine sleep apnea - (Added by TW Conv) Personal history of diseases of skin or subcutaneous tissue History of psoriasis - (Adde d by TW Conv) Personal history of other di seases of the nervous system and sense organs History of carpal tunn el syndrome - (bilateral). (Added by TW Conv) Personal history of other di seases of the respiratory system History of allergic rhinitis - (Added by TW Conv) Hypertension Heart disease Leg swelling Family History Medical History Relation Name Comments Cancer Father Cancer - lympho ma (Added by TW Conv) Heart disease Father Heart Disease - (Added by TW Conv) Pulmonary embolism Father Pulmonary Embolism - (Added by TW Conv) COPD Mother Chronic Obstruc tive Pulmonary Disease - (Added by TW Conv) Thyroid disease Mother Thyroid Diso rder - (Added by TW Conv) Cancer Other 1 Family history of malignant neoplasm - (Added by TW Conv) Diabetes Other 2 Family history of diabetes mellitus - (Added by TW Conv) Relation Name Status Comments Father Mother Other 1 Other 2 Social History Tobacco Use Types Packs/Day Years Used Date Smoking Tobacco: Every Day Smokeless Tobacco: Never Comments Unknown Sex and Gender Information Value Date Recorded Sex Assigned at Not on file Legal Sex Female 8:03 PM ENROLLMENT PROCESSOR Gender Identity Not on file Sexual Orientation Not on file Obstetrics History Last Filed Vital Signs Vital Sign Reading Time Taken Comments Blood Pressure 132/74 05/21/2024 3:24 PM ENROLLMENT PROCESSOR Pulse 88 05/21/2024 3:24 PM ENROLLMENT PROCESSOR Temperature - - Respiratory Rate - - Oxygen Saturation 99% 05/21/2024 3:24 PM ENROLLMENT PROCESSOR Inhaled Oxygen Concentration - - Weight 108.4 kg (239 lb) 05/21/2024 3:24 PM ENROLLMENT PROCESSOR Height 162.6 cm (5' 4 ) 05/21/2024 3:24 PM ENROLLMENT PROCESSOR Body Mass Index 41.02 05/21/2024 3:24 PM ENROLLMENT PROCESSOR Plan of Treatment Health Maintenance Due Date Last Done Comments Breast Cancer Screening-Mammogram 1965 Cervical Cancer Screening 1965 Colon Cancer Screening-Colonoscopy 1965 Depression Screening 1965 DTaP/Tdap/Td Vaccine (1 - Tdap) 02/12/1975 Hepatitis B Screening 02/12/1982 Regular Well Visit/Exam 18-64 02/12/1982 Zoster Vaccine (1 of 2) 02/12/2014 Pneumococcal vaccine <65 (2 of 2 - PPSV23) 04/03/2018 02/06/2018 Influenza Vaccine (#1) 2023 9, 01/26/2017, 01/10/2016, Additional history exists Hepatitis C Screening Completed 12/06/2021 Procedures Procedure Name Priority Date/Time Associated Diagnosis Comments ELECTROCARDIOGRAM REPORT Routine 025 7:37 AM ENROLLMENT PROCESSOR Status post insertion of drug eluting coronary artery stent HEPATITIS PANEL, ACUTE Routine 11:26 AM CDT from Last 3 Months or Most Recently Relevant to Health Maintenance Results * Electrocardiogram Report (05/21/2024 7:37 AM ENROLLMENT PROCESSOR) us Javier Melvin MD ECG ORDERABLES Final Re sult * Hepatitis panel, acute (12/06/2021 11:26 AM CDT) Hep A IgM NON-REACTI VE NON-REACT SHERINE [facility] Comment: For additional information, please refer to http://[employer]/faq/SVM016 (This link is being provided for informational/ [...] a test for HCV RNA (test code 62848) is suggested. For additional information please refer to http://[employer]/faq/RYW94f6 (This link is being provided for informational/ educational purposes only.) 12/06/2021 11:2 6 AM CDT 12/06/2021 11:28 AM CDT us Walt Shetty MD LAB MICROBIOLOGY - GENERAL ORD ERABLES Final Result [facility] [address] [address], [place] [phone] from Last 3 Months or Most Recently Relevant to Health Maintenance Insurance [employer] [facility] Care Teams Bobtailer Relationship Specialty Start Date End Date Jaime Cleaning MD [address] [facility] [address] [facility] [address] [place] [address] PCP - General Internal Medicine 11/01/21 Soham Arnold MD [address] [place] [address] [address] [place] [address] Referring Physician Cardiovascular Disease 02/03/19 Jeaneth Funez MD [address] [place] [address] Referring Physician Dermatology 03/10/19 Walt Shetty MD [address] [place] [address] Consulting Physician Rheumatology 11/01/21
--- OUTSIDE RECORDS SUMMARY | 2024-07-06 00:51 | XMS_ITS | Clinical Summary ---
Author Organization [facility] Administrative Offices Address [address] [place] [address] Care Team Providers Care Cross Country Coach Name Role Phone Jt Zamora MD Primary Care Provider [phone] Social History Tobacco Use Types Packs/Day Years Used Date Smoking Tobacco: Never Assessed Comments Unknown Sex and Gender Information Value Date Recorded Sex Assigned at Not on file Legal Sex Female 5:32 AM DIRECTOR CLIENT SERVICES Gender Identity Not on file Sexual Orientation Not on file Last Filed Vital Signs Vital Sign Reading Time Taken Comments Blood Pressure - - Pulse - - Temperature - - Respiratory Rate - - Oxygen Saturation - - Inhaled Oxygen Concentration - - Weight 103.4 kg (228 lb) 12/17/2011 10:00 AM CDT Height - - Body Mass Index - - Plan of Treatment Health Maintenance Due Date Last Done Comments DTAP/TDAP/TD VACCINES (1 - Tdap) 02/12/1983 CERVICAL CANCER SCREENING 02/12/1994 BREAST CANCER SCREENING 2004 COLORECTAL SCREENING 02/12/2009 Colorectal Cancer Screening 02/12/2009 FIT-DNA Q 3 years 02/12/2009 FIT/FOBT Q 1 year 02/12/2009 Flex Sig/CT Colonography Q 5 years 02/12/2009 ZOSTER VACCINE (1 of 2) 02/12/2014 INFLUENZA VACCINE (#1) 2023 RSV VACCINE (60+ or ) (1 - 1-dose 75+ series) 02/12/2039 HEPATITIS B VACCINES Aged Out No long er eligible based on patient's age to complete this topic Insurance [facility] BLUE ACCESS/TRUE BLUE PPO Care Teams Cross Country Coach Relationship Specialty Start Date End Date Jt Zamora MD [address] [place] [phone] PCP - General Family Practice 12/17/11
--- OUTSIDE RECORDS SUMMARY | 2024-07-06 00:51 | XMS_ITS | Clinical Summary ---
Author Organization [facility] [employer] Address [address] [place] [address] Care Team Providers Care Sales Utility Representative Name Role Phone Jt Zamora MD Primary Care Provider [phone] Source Comments [facility] [employer],non-owned Affiliates and Associated Physician Practices is amultiple site organization consisting of ambulatory clinics and hospital sitesin [place], [place], [place] and [place]. This disclosure is being madepursuant to the Care Everywhere program and may not contain all information available regarding this patient. Last updated 18.[facility] [employer] Allergies Active Allergy Reactions Criticality Noted Date Comments Cefuroxime Skin Reactions Medium 01/28/2013 Contrast-Iodinated Agents For Ct/Other Rash Medium 03/24/2018 Levaquin Skin Reactions Medium 01/28/2013 Medications * Be aware that medications may not be up to date on this document. Alwaysverify current medications with the patient. Medication Sig Dispensed Refills Start Date End Date Status cyanocobalamin (VITAMIN B-12) 1000 MCG tablet Take 1,000 mcg by mouth once daily Active Vitamin D, Ergocalciferol, 2000 UNITS CAPS Active aspirin (ASPIRIN) 81 MG tablet Take 81 mg by mouth once daily Active dwmua-5-aiys ethyl esters (LOVAZA) 1 G capsule Take 1 capsule by mouth once daily 12/19/2017 Active metoprolol succinate XL 24hr (TOPROL XL) 25 MG tablet Take 1 tablet by mouth once daily 02/03/2018 Active clopidogrel (PLAVIX) 75 MG tablet Take 1 tablet by mouth once daily 02/03/2018 Active famotidine (PEPCID) 40 MG tablet Take 40 mg by mouth once daily 02/25/2018 Active fexofenadine (AUSTIN ALLERGY) 180 MG tablet Take 180 mg by mouth once daily Active triamterene-hydroC HLOROthiazide (DYAZIDE) 37.5-25 MG capsule Take 1 capsule by mouth once daily as needed 02/20/2018 Active traMADol (ULTRAM) 50 MG tablet Take 50 mg by mouth every 6 hours as needed for Pain Active Evolocumab (REPATHA SC) Inject subcutaneously every 14 days Active VASCEPA 1 G capsule 05/17/2018 Active buPROPion XL 24hr (WELLBUTRIN-XL) 150 MG tablet 04/29/2018 Active KLOR-CON M10 10 MEQ tablet 05/03/2018 Active tacrolimus (PROTOPIC) 0.1 % ointment 05/13/2018 Active Active Problems Problem Noted Date Diagnosed Date Elevated liver enzymes 03/24/2018 Chronic rhinitis 10/05/2013 Pruritus 10/05/2013 Family History Medical History Relation Name Comments Other Daughter neutropenia; St atus: Alive Cancer Father lymphoma Heart Disease Father Status: Deceas ed COPD - Chronic Obstructive Pulmonary Disease Mother Status: Alive Hypertension Mother Thyroid Disease Mother Psoriasis Paternal Grandmother Status: Relation Name Status Comments Daughter Father Mother Paternal Grandmother Social History Tobacco Use Types Packs/Day Years Used Date Smoking Tobacco: Every Day Cigarettes Smokeless Tobacco: Never Tobacco Cessation:Ready to Q uit: No; Counseling Given: Yes Alcohol Use Standard Drinks/Week Comments Yes 0 (1 standard drink = 0.6 oz pur e alcohol) 2 - 3 times a week Sex and Gender Information Value Date Recorded Sex Assigned at Not on file Gender Identity Not on file Sexual Orientation Not on file Last Filed Vital Signs Vital Sign Reading Time Taken Comments Blood Pressure 118/59 05/26/2018 10:57 AM ALLIED HEALTH TEACHER Pulse 83 05/26/2018 10:57 AM ALLIED HEALTH TEACHER Temperature 36.5 C (97.7 F) 05/26/2018 10:57 AM ALLIED HEALTH TEACHER Respiratory Rate 20 04/16/2018 2:00 PM ALLIED HEALTH TEACHER Oxygen Saturation 95% 04/16/2018 2:00 PM ALLIED HEALTH TEACHER Inhaled Oxygen Concentration - - Weight 109.4 kg (241 lb 1.6 oz) 019 10:57 AM ALLIED HEALTH TEACHER Height 162.6 cm (5' 4 ) 05/26/2018 10:5 7 AM ALLIED HEALTH TEACHER Body Mass Index 41.38 05/26/2018 10:57 AM ALLIED HEALTH TEACHER Plan of Treatment Health Maintenance Due Date Last Done Comments COLOGUARD (AGES 45-75) - COL ON CA SCREENING 1964 COLON MONITORING 1964 COLONOSCOPY - COLON CA SCREENING 1964 CT COLONOGRAPHY - COLON CA SCREENING 1964 Colorectal Cancer Screening 1964 FIT - COLON CA SCREENING 1964 FLEX SIG - COLON CA SCREENING 1964 LIPID TESTING 1964 MAMMOGRAM 1964 HIV SCREENING 02/12/1979 DTAP/TDAP/TD VACCINES (1 - Tdap) 02/12/1983 PNEUMOCOCCAL VACCINE 50+ (1 of 2 - PCV) 02/12/1983 PNEUMOCOCCAL VACCINE (1 of 2 - PCV) 02/12/1983 PAP with HPV 02/12/1994 ZOSTER VACCINE (1 of 2) 02/12/2014 SCREENING FOR DIABETES 03/25/2021 8, 01/28/2013 COVID-19 VACCINE (1 - 2023-2 5 season) 2023 INFLUENZA VACCINE (#1) 2023 Respiratory Syncytial Virus (RSV) Vaccine Pt: or over 60 yrs (1 - Risk 60-74 years 1-dose series) 2024 DEPRESSION SCREENING 04/28/2024 HEPATITIS C SCREENING Completed 01/28/2013 HEPATITIS B VACCINE Aged Out No longe r eligible based on patient's age to complete this topic HIB VACCINE Aged Out No longer eligi ble based on patient's age to complete this topic HPV VACCINE Aged Out No longer eligi ble based on patient's age to complete this topic MENINGOCOCCAL (Group B) VACCINE Aged Out No longer eligible b ased on patient's age to complete this topic MENINGOCOCCAL VACCINE Aged Out No norman annette eligible based on patient's age to complete this topic Procedures Procedure Name Priority Date/Time Associated Diagnosis Comments COMPREHENSIVE METABOLIC PANEL Routine 03/25/2018 8:58 AM ALLIED HEALTH TEACHER Elevated liver enzymes HEPATITIS C ANTIBODY Routine 01/28/2013 10:30 AM CDT from Last 3 Months or Most Recently Relevant to Health Maintenance Results * (ABNORMAL) COMPREHENSIVE METABOLIC PANEL (03/25/2018 8:58 AM ALLIED HEALTH TEACHER) Glucose 112(H) 65 - 99 mg/dL [facility] Comment: Fasting reference interval For someone without known diabetes, a glucose value between 100 and 125 mg/dL is consistent with prediabetes and should be confirmed with a follow-up test. BUN 13 7 - 25 mg/dL [facility] Creatinine 0.49(L) 0.50 - 1.05 mg/dL [facility] Comment: For patients >49 years of age, the reference limit for Creatinine is approximately 13% higher for people identified as -Citizen Of [place]. eGFR by MDRD 110 > OR = 60 mL/min/1. 73m2 [facility] eGFR by MDRD 128 > OR = 60 mL/min/1. 73m2 [facility] BUN/Creatinine Ratio 27(H) 6 - 22 (calc) [facility] Sodium 141 135 - 146 mmol/L [facility] Potassium 4.1 3.5 - 5.3 mmol/L [facility] Chloride 104 98 - 110 mmol/L [facility] CO2 28 20 - 32 mmol/L [facility] Calcium 9.8 8.6 - 10.4 mg/dL [facility] Protein Total 7.2 6.1 - 8.1 g/dL [facility] Albumin 4.5 3.6 - 5.1 g/dL [facility] Globulin Total 2.7 1.9 - 3.7 g/dL (calc) [facility] Albumin/Globulin Ratio 1.7 1.0 - 2.5 (calc) [facility] Bilirubin Total 0.5 0.2 - 1.2 mg/dL [facility] Alkaline Phosphatase 54 33 - 130 U/L [facility] AST 17 10 - 35 U/L [facility] ALT 21 6 - 29 U/L [facility] Comment: Test Performed at: [facility] [address] [place] [address] LAURITA RAMIREZ DO,MPH Blood BLOOD SPECIMEN / Unknown 03/25/2018 8:58 AM ALLIED HEALTH TEACHER 03/25/2018 8:59 AM ALLIED HEALTH TEACHER Darwin Mackenzie MD LAB - CHEMISTRY ANAT COREAS [facility] Organization Address City/State/ZIP Co de Phone Number [facility] [address] [place] [address] * HEPATITIS C ANTIBODY (01/28/2013 10:30 AM CDT) Hepatitis C Antibody NON-REACTI VE NON-REACT [facility] ([facility]) Signal/Cutoff 0.03 <1.00 [facility] ([facility]) Comment: Test Performed at: [facility] [address] [place] [address] LAURITA RAMIREZ DO,MPH 01/28/2013 10:3 0 AM CDT 01/28/2013 10:31 AM CDT Kelly Caraballo MD LAB - CHEM ISTRY ORDERABLES [facility] ([facility]) from Last 3 Months or Most Recently Relevant to Health Maintenance Care Teams Sales Utility Representative Relationship Specialty Start Date End Date Jt Zamora MD PCP - General 04/12/08
--- OUTSIDE RECORDS SUMMARY | 2024-07-06 00:51 | XMS_ITS | Referral Summary ---
Author Organization [facility] [employer] Address [address] [place] [address] Care Team Providers Care Java Systems Analyst Name Role Phone Jt Zamora MD Primary Care Provider [phone] Source Comments [facility] [employer],non-owned Affiliates and Associated Physician Practices is amultiple site organization consisting of ambulatory clinics and hospital sitesin [place], [place], [place] and [place]. This disclosure is being madepursuant to the Care Everywhere program and may not contain all information available regarding this patient. Last updated 18.[facility] [employer] Allergies Active Allergy Reactions Criticality Noted Date [...] 81 mg by mouth once daily Active djbkg-7-oazc ethyl esters (LOVAZA) 1 G capsule Take [...] enzymes 03/24/2018 Chronic rhinitis 10/05/2013 Pruritus 10/05/2013 Social History Tobacco Use Types Packs/Day Years [...] Comments Blood Pressure 118/59 05/26/2018 10:57 AM KEY HOLDER Pulse 83 05/26/2018 10:57 AM KEY HOLDER Temperature 36.5 C (97.7 F) 05/26/2018 10:57 AM KEY HOLDER Respiratory Rate 20 04/16/2018 2:00 PM KEY HOLDER Oxygen Saturation 95% 04/16/2018 2:00 PM KEY HOLDER Inhaled Oxygen Concentration - - Weight 109.4 kg (241 lb 1.6 oz) 019 10:57 AM KEY HOLDER Height 162.6 cm (5' 4 ) 05/26/2018 10:5 7 AM KEY HOLDER Body Mass Index 41.38 05/26/2018 10:57 AM KEY HOLDER Plan of Treatment Not on file Procedures Procedure Name Priority Date/Time Associated Diagnosis Comments COMPREHENSIVE METABOLIC PANEL Routine 03/25/2018 8:58 AM KEY HOLDER Elevated liver enzymes HEPATITIS C ANTIBODY Routine 01/28/2013 10:30 AM CDT from Last 3 Months or Most Recently Relevant to Health Maintenance Results * (ABNORMAL) COMPREHENSIVE METABOLIC PANEL (03/25/2018 8:58 AM KEY HOLDER) Glucose 112(H) 65 - 99 mg/dL [facility] [...] approximately 13% higher for people identified as -Micronesian. eGFR by MDRD 110 > OR = [...] 29 U/L [facility] Comment: Test Performed at: [employer] [address] [place] [address] LAURITA RAMIREZ DO,MPH Blood BLOOD SPECIMEN / Unknown 03/25/2018 8:58 AM KEY HOLDER 03/25/2018 8:59 AM KEY HOLDER Darwin Mackenzie MD LAB - CHEMISTRY ANAT COREAS [facility] Organization Address City/State/ZIP Co de Phone Number [facility] [address] [place] [address] * HEPATITIS C ANTIBODY (01/28/2013 10:30 AM CDT) Hepatitis C Antibody NON-REACTI VE NON-REACT [facility] ([facility]) Signal/Cutoff 0.03 <1.00 [facility] ([facility]) Comment: Test Performed at: [facility] [address] [place] [address] LAURITA RAMIREZ DO,MPH 01/28/2013 10:3 0 AM CDT 01/28/2013 10:31 AM CDT Kelly Caraballo MD LAB - CHEM ISTRY ORDERABLES [facility] ([facility]) from Last 3 Months or Most Recently Relevant to Health Maintenance Care Teams Java Systems Analyst Relationship Specialty Start Date End Date Jt Zamora MD PCP - General 04/12/08
--- OUTSIDE RECORDS SUMMARY | 2024-07-06 00:51 | XMS_ITS | Encounter Summary ---
Author Organization [facility] Address [address] [place] [address] Care Team Providers Care Jamb Cutter Name Role Phone Jt Zamora MD Primary Care Provider [phone] Encounter Details Date Type Department Care Team (Late st Contact Info) Description 04/02/2018 Lab Requisition [facility] [address] [facility], [place] [id number] Jeaneth Funez MD [address] [place] [address] Social History Tobacco Use Types Packs/Day Years Used Date Smoking Tobacco: Every Day Cigarettes Smokeless Tobacco: Never Alcohol Use Standard Drinks/Week Comments Yes 0 (1 standard drink = 0.6 oz pur e alcohol) 3 to 4 times a week Sex and Gender Information Value Date Recorded Sex Assigned at Not on file Gender Identity Not on file Sexual Orientation Not on file documented as of this encounter Plan of Treatment Not on file documented as of this encounter Procedures Procedure Name Priority Date/Time Associated Diagnosis Comments DERMATOPATH TECHNICAL REPORT Routine 04/01/2018 12:00 AM UNDERGROUND MINE MACHINERY MECHANIC documented in this encounter Results * DERMATOPATH TECHNICAL REPORT (04/01/2018 12:00 AM UNDERGROUND MINE MACHINERY MECHANIC) Case Report Dermatopathology Report Case: [id number] Authorizing Provider: Jeaneth Funez MD Collected: 04/01/2018 12:00 AM Pathologist: Radha Lara MD Received: 04/02/2018 07:23 AM Specimen: Skin, right hand 8 12:18 PM UNDERGROUND MINE MACHINERY MECHANIC DERMATOPATHOLOGY LABORATORY Addendum 1 At the request of the diagnosing physician, the technical component for PAS and Colloidal Iron was performed by [facility] Dermatopathology Laboratory. 12:18 PM [facility] DERMATOPATHOLOGY LABORATORY Addendum electronically signed by Radha Lara MD on 04/07/2018 at 12:18 PM Clinical History PSO vs CTD. [place] scaly patches. 12:18 PM [facility] DERMATOPATHOLOGY LABORATORY Gross Description Specimen A: Received is one formalin filled container labeled with the patient's name and designated right hand. The specimen consists of a punch measuring [id number], bisected. Jar 0. [facility] Dermatopathology [facility] performed the technical component only. 12:18 PM [facility] DERMATOPATHOLOGY LABORATORY Embedded Images 12:18 PM [facility] DERMATOPATHOLOGY LABORATORY DISCLAIMER An external and internal positive and negative controls are appropriate for the histochemical, immunohistochemical and immunofluorescence stain(s) in this case (if any), except where stated explicitly. The performance characteristics of the stain(s) cited in this report were developed and its performance characteristic determined by the Dermatopathology Laboratory at [facility]. These tests need not be, and therefore are not, approved by the [place] Food and Drug Administration. The tests are used for clinical purposes. 12:18 PM [facility] DERMATOPATHOLOGY LABORATORY Pathology/Cytolog y TISSUE SPECIMEN FROM SKIN / Unknown 04/01/2018 04/02/2018 7:23 AM UNDERGROUND MINE MACHINERY MECHANIC Jeaneth Funez MD LAB - PATHOLOGY/CYTO LOGY ORDERABLES DERMATOPATHOLOGY LABORATORY [facility] - Department of Dermatology [address] [place] [address], 5th Floor Lab [address] [phone] documented in this encounter Visit Diagnoses Not on filedocumented in this encounter Care Teams Jamb Cutter Relationship Specialty Start Date End Date Jt Zamora MD PCP - General 04/12/08 documented as of this encounter
--- OUTSIDE RECORDS SUMMARY | 2024-07-06 00:51 | XMS_ITS | Continuity of Care Document ---
Author Organization [facility] Address [address] [place] [address] [address] [place] [address] Phone Care Team Providers Care Sweetbread Trimmer Name Role Phone Mehnaz Velazquez Unavailable Unavailable Advance Directives Directive Yes / No Effective Date File Name No Information Encounters Encounter Description Practice Location Reason(s) For Visit Diagnoses Date Provider Providers Copied on Encounter [facility], [address] [place] [address] [address], [place], [place], [id number], [place] tel:[phone] [facility] No Information Mar-0 8-200 5 Caroline Darby. [address] , [address], [place], [address], [place]. tel:[phone] Family History Family Member Type Diagnosis Age At Onset No Information Payers Payer name Insurance type Covered alliance party ID Authoriza tion(s) No Information Social [...]
--- OUTSIDE RECORDS SUMMARY | 2024-07-06 00:51 | XMS_ITS | Encounter Summary ---
Author Organization [facility] Address [address] [place] [address] Care Team Providers Care Blood Donor Unit Assistant Name Role Phone Jt Zamora MD Primary Care Provider [phone] Encounter Details Date Type Department Care Team (Late st Contact Info) Description 09/18/2018 Lab Requisition [facility] [address] [facility] [place] [phone] Jeaneth Funez MD [address] [facility] [address] [place] [address] Social History Tobacco Use Types Packs/Day Years [...] Procedure Name Priority Date/Time Associated Diagnosis Comments DERMATOPATHOLOGY Routine 09/17/2018 12:0 0 AM CDT documented in this encounter Results * DERMATOPATHOLOGY (09/17/2018 12:00 AM CDT) Case Report Dermatopathology Report Case: [id number] Authorizing Provider: Jeaneth Funez MD Collected: 09/17/2018 12:00 AM Pathologist: Radha Lara MD Received: 09/18/2018 06:36 AM Specimen: Skin, left cheek 9 6:00 PM CDT DERMATOPATHOLOGY LABORATORY Final Diagnosis Specimen A. SKIN, left cheek: BENIGN VERRUCOUS KERATOSIS, INFLAMED (L82.1) 6:00 PM T DERMATOPATHOLOGY LABORATORY Clinical History R/O BCC hx of PSO crusted papule. 6:00 PM T DERMATOPATHOLOGY LABORATORY Gross Description Specimen A: Received is one formalin filled container labeled with the patient's name and designated left cheek. The specimen consists of a shave measuring [id number]. Jar 0. 6:00 PM T DERMATOPATHOLOGY LABORATORY Microscopic Description Specimen A. SKIN, left cheek: Sections show hyperkeratosis, papillomatosis, hypergranulosis, and acanthosis. Inflammatory cells are present within the dermis. These histological findings can be seen in a verruca vulgaris or a seborrheic keratosis. 6:00 PM T DERMATOPATHOLOGY LABORATORY Disclaimer An external and internal positive and negative controls are appropriate for the histochemical, immunohistochemical and immunofluorescence stain(s) in this case (if any), except where stated explicitly. The performance characteristics of the stain(s) cited in this report were developed and its performance characteristic determined by the Dermatopathology Laboratory at [facility], directed by Dr. Luke Lara. These tests need not be, and therefore are not, approved by the [place] Food and Drug Administration. The tests are used for clinical purposes. Billing Codes Specimen Charges Stain Charges 03887 1 6:00 PM CDT DERMATOPATHOLOGY LABORATORY Embedded Images 6:00 PM CDT DERMATOPATHOLOGY LABORATORY Pathology/Cytolog y TISSUE SPECIMEN FROM SKIN / Unknown 09/17/2018 09/18/2018 6:36 AM CDT Jeaneth Funez MD LAB - PATHOLOGY/CYTO LOGY ORDERABLES DERMATOPATHOLOGY LABORATORY [facility] - Department of Dermatology [address] [place] [address], 5th Floor Lab [address] [phone] documented in this encounter Visit Diagnoses Not on filedocumented in this encounter Care Teams Blood Donor Unit Assistant Relationship Specialty Start Date End Date Jt Zamora MD PCP - General 04/12/08 documented as of this encounter
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
--- OUTSIDE RECORDS SUMMARY | 2024-07-06 00:51 | XMS_ITS | Patient Health Summary ---
Author Organization [facility] Address [address] [place] [address] Care Team Providers Care Time Motion Analyst Name Role Phone Jt Zamora MD Primary Care Provider [phone] Note from [facility],non-owned Affiliates and Associated Physician Practices is amultiple site organization consisting of ambulatory clinics and hospital sitesin [place], [place], [place] and [place]. This disclosure is being madepursuant to the Care Everywhere program and may not contain all information available regarding this patient. Last updated 18.[facility] Allergies * Cefuroxime(Skin Reactions) -Medium Criticality * Contrast-Iodinated Agents For Ct/Other(Rash) -Medium Criticality * Levaquin(Skin Reactions) -Medium Criticality Medications * Be aware that medications may not be up to date on this document. Alwaysverify current medications with the patient. * cyanocobalamin (VITAMIN B-12) 1000 MCG tablet Take 1,000 mcg by mouth once daily * Vitamin D, Ergocalciferol, 2000 UNITS CAPS * aspirin (ASPIRIN) 81 MG tablet Take 81 mg by mouth once daily * aqlxj-0-bbqe ethyl esters (LOVAZA) 1 G capsule(Started 12/19/2017) Take 1 capsule by mouth once daily * metoprolol succinate XL 24hr (TOPROL XL) 25 MG tablet(Started 02/03/2018) Take 1 tablet by mouth once daily * clopidogrel (PLAVIX) 75 MG tablet(Started 02/03/2018) Take 1 tablet by mouth once daily * famotidine (PEPCID) 40 MG tablet(Started 02/25/2018) Take 40 mg by mouth once daily * fexofenadine (AUSTIN ALLERGY) 180 MG tablet Take 180 mg by mouth once daily * triamterene-hydroCHLOROthiazide (DYAZIDE) 37.5-25 MG capsule(Started 02/20/2018) Take 1 capsule by mouth once daily as needed * traMADol (ULTRAM) 50 MG tablet Take 50 mg by mouth every 6 hours as needed for Pain * Evolocumab (REPATHA SC) Inject subcutaneously every 14 days * VASCEPA 1 G capsule(Started 05/17/2018) * buPROPion XL 24hr (WELLBUTRIN-XL) 150 MG tablet(Started 04/29/2018) * KLOR-CON M10 10 MEQ tablet(Started 05/03/2018) * tacrolimus (PROTOPIC) 0.1 % ointment(Started 05/13/2018) Active Problems Problem Noted Date Diagnosed Date [...] Comments Blood Pressure 118/59 05/26/2018 10:57 AM SURGICAL INSTRUMENT REPAIR SPECIALIST Pulse 83 05/26/2018 10:57 AM SURGICAL INSTRUMENT REPAIR SPECIALIST Temperature 36.5 C (97.7 F) 05/26/2018 10:57 AM SURGICAL INSTRUMENT REPAIR SPECIALIST Respiratory Rate 20 04/16/2018 2:00 PM SURGICAL INSTRUMENT REPAIR SPECIALIST Oxygen Saturation 95% 04/16/2018 2:00 PM SURGICAL INSTRUMENT REPAIR SPECIALIST Inhaled Oxygen Concentration - - Weight 109.4 kg (241 lb 1.6 oz) 019 10:57 AM SURGICAL INSTRUMENT REPAIR SPECIALIST Height 162.6 cm (5' 4 ) 05/26/2018 10:5 7 AM SURGICAL INSTRUMENT REPAIR SPECIALIST Body Mass Index 41.38 05/26/2018 10:57 AM SURGICAL INSTRUMENT REPAIR SPECIALIST Procedures * DERMATOPATHOLOGY(Performed 08/26/2022) * MRI ABDOMEN WO CONTRAST(Performed 04/19/2019) Performed for Localized enlarged lymph nodes * DERMATOPATHOLOGY(Performed 09/17/2018) * MRI ABDOMEN WWO CONTRAST(Performed 05/22/2018) Performed for Abnormal finding on imaging * CREATININE BLOOD - POCT (IP) [facility](Performed 05/22/2018) Performed for Abnormal finding on imaging * US ABDOMEN COMPLETE(Performed 05/06/2018) Performed for Epigastric pain * C3, C4, COMPLEMENT CH50(Performed 05/04/2018) Performed for Epigastric pain * COMPLEMENT C1 ESTERASE INHIBITOR FUNCTION ACTIVITY(Performed 05/04/2018) Performed for Epigastric pain * DERMATOPATH TECHNICAL REPORT(Performed 04/01/2018) * CERULOPLASMIN(Performed 03/25/2018) Performed for Elevated liver enzymes * GGT(Performed 03/25/2018) Performed for Elevated liver enzymes * AMYLASE BLOOD(Performed 03/25/2018) Performed for Elevated liver enzymes * MIHLK-1-ROGYBIERWYY MUTATION ANALYSIS PANEL(Performed 03/25/2018) Performed for Elevated liver enzymes * HEPATITIS B CORE ANTIBODY TOTAL(Performed 03/25/2018) Performed for Elevated liver enzymes * HEPATITIS B DNA QUANT(Performed 03/25/2018) Performed for Elevated liver enzymes * SMOOTH MUSCLE ANTIBODY(Performed 03/25/2018) Performed for Elevated liver enzymes * MITOCHONDRIAL ANTIBODY SCREEN(Performed 03/25/2018) Performed for Elevated liver enzymes * MICROSOMAL ANTIBODY LIVER/KIDNEY(Performed 03/25/2018) Performed for Elevated liver enzymes * LUZ BLOOD SCREEN W/REFLEX TITER(Performed 03/25/2018) Performed for Elevated liver enzymes * FERRITIN(Performed 03/25/2018) Performed for Elevated liver enzymes * COMPREHENSIVE METABOLIC PANEL(Performed 03/25/2018) Performed for Elevated liver enzymes * CBC W AUTO DIFFERENTIAL(Performed 03/25/2018) Performed for Elevated liver enzymes * DERMATOPATHOLOGY(Performed 03/14/2016) * DERMATOPATHOLOGY(Performed 03/14/2016) * DERMATOPATHOLOGY(Performed 11/23/2013) * HEPATITIS AUTOIMMUNE DIAGNOSTIC PANEL(Performed 01/28/2013) * SS-A/SS-B (SJOGREN'S) ANTIBODY PANEL(Performed 01/28/2013) * CYCLIC CITRULLINATED PEPTIDE(CCP) AB IGG(Performed 01/28/2013) * ERYTHROCYTE SEDIMENTATION RATE(Performed 01/28/2013) * ALDOLASE(Performed 01/28/2013) * CK BLOOD(Performed 01/28/2013) * C-REACTIVE PROTEIN(Performed 01/28/2013) * HEPATITIS B SURFACE ANTIGEN W RFLX CONFIRMATION(Performed 01/28/2013) * HEPATITIS C ANTIBODY(Performed 01/28/2013) * HEPATITIS B CORE ANTIBODY TOTAL(Performed 01/28/2013) * VITAMIN D 25-HYDROXY D2+D3(Performed 01/28/2013) * TSH(Performed 01/28/2013) * URINALYSIS W/MICROSCOPIC NO CULTURE(Performed 01/28/2013) * COMPREHENSIVE METABOLIC PANEL(Performed 01/28/2013) * CBC W AUTO DIFFERENTIAL(Performed 01/28/2013) * LAB HISTORICAL RESULTS-ONBASE(Performed 01/28/2013) * PATHOLOGY/GENETICS HISTORICAL-ONBASE(Performed 10/11/2008) * LAB HISTORICAL RESULTS-ONBASE(Performed 01/19/2002) * LAB HISTORICAL RESULTS-ONBASE(Performed 01/19/2002) * LAB HISTORICAL RESULTS-ONBASE(Performed 01/19/2002) * LAB HISTORICAL RESULTS-ONBASE(Performed 01/19/2002) Results * DERMATOPATHOLOGY (08/26/2022 3:33 AM CDT) Only the most recent of5 resultswithin the time period is included. Case Report Dermatopathology Report Case: [id number] Authorizing Provider: Jeaneth Funez MD Collected: 08/26/2022 03:33 AM Ordering Location: [facility] DermPath Lab Received: 08/27/2022 11:49 AM Pathologist: Haylie Queen MD Specimens: A) - Skin, right forehead B) - Skin, left chin 10:59 AM CDT DERMATOPATHOLOGY LABORATORY Final Diagnosis Specimen A. SKIN, right forehead: EPIDERMAL NECROSIS SUGGESTIVE OF EXCORIATION (L98.499) Specimen B. SKIN, left chin: MILIUM (L72.8) EPIDERMAL NECROSIS SUGGESTIVE OF EXCORIATION (L98.499) 10:59 AM CDT DERMATOPATHOLOGY LABORATORY Clinical History A-B: : R/O: BCC VS ACNE; NON-HEALING PINK PAPULE 10:59 AM CDT DERMATOPATHOLOGY LABORATORY Gross Description Specimen A: Received is one formalin filled container labeled with the patient's name and designated right forehead. The specimen consists of a shave biopsy measuring 6x4x1 mm. Jar 0. Specimen B: Received is one formalin filled container labeled with the patient's name and designated left chin. The specimen consists of a shave biopsy measuring 6x4x1 mm. Jar 0. 10:59 AM [facility] DERMATOPATHOLOGY LABORATORY Microscopic Description Specimen A. SKIN, right forehead: The epidermis is focally necrotic and covered with a scale-crust. There is fibrin at the base. Specimen B. SKIN, left chin: There is a space that contains loosely aggregated cornified cells surrounded by epithelium that resembles normal epidermis. The epidermis is focally necrotic and covered with a scale-crust. There is fibrin at the base. 10:59 AM T DERMATOPATHOLOGY LABORATORY Disclaimer An external and internal positive and negative controls are appropriate for the histochemical, immunohistochemical and immunofluorescence stain(s) in this case (if any), except where stated explicitly. The performance characteristics of the stain(s) cited in this report were developed and its performance characteristic determined by the Dermatopathology Laboratory at [facility], directed by Dr. Luke Lara. These tests need not be, and therefore are not, approved by the [place] Food and Drug Administration. The tests are used for clinical purposes. Billing Codes Specimen Charges Stain Charges 65986 14008 1 1 3 10:59 AM T DERMATOPATHOLOGY LABORATORY Embedded Images 3 10:59 AM CDT DERMATOPATHOLOGY LABORATORY Pathology/Cytology TISSUE SPECIMEN FROM SKIN / Unknown 08/26/2022 3:33 AM CDT 08/27/2022 11:49 AM CDT Miscellaneous samples (specimen) TISSUE SPECIMEN FROM SKIN / Unknown 08/26/2022 3:33 AM CDT 08/27/2022 11:49 AM CDT Jeaneth Funez MD LAB - PATHOLOGY/CYTO LOGY ORDERABLES DERMATOPATHOLOGY LABORATORY [facility] - Department of Dermatology [address], [address] [phone] * MRI ABDOMEN WO CONTRAST (04/19/2019 7:42 AM SURGICAL INSTRUMENT REPAIR SPECIALIST) Anatomical Region Laterality Modality Abdomen Magnetic Resonan ce 04/19/2019 8:32 AM SURGICAL INSTRUMENT REPAIR SPECIALIST Impressions 04/19/2019 2:03 PM SURGICAL INSTRUMENT REPAIR SPECIALIST IMPRESSION: 1. Interval decrease in size of mildly prominent nonspecific periportal lymph nodes, with the largest portacaval lymph node now measuring up to 1.2 cm in short axis, previously 1.7 cm. Given their interval decrease in size, these lymph nodes are likely reactive and no further follow-up is required. 2. Severe hepatic steatosis with hepatomegaly, unchanged. Dictated by Valentin Rai MD (radiology special procedure tech). I, Dr. LIONEL MARSHALL M.D. have personally reviewed and interpreted this examination/study. This report was electronically signed by LIONEL MARSHALL M.D. on 04/19/2019 2:03 PM . Narrative 04/19/2019 2:03 PM SURGICAL INSTRUMENT REPAIR SPECIALIST EXAMINATION: Magnetic resonance imaging (MRI) of the abdomen without contrast HISTORY: Several prominent periportal lymph nodes, follow-up TECHNIQUE: MRI of the abdomen was performed without administration of intravenous gadolinium contrast according to standard protocol. COMPARISON: Comparison is made with a study from 05/22/2018. FINDINGS: The visible lung bases are clear. There is severe diffuse hepatic steatosis without evidence of cirrhosis. The liver remains enlarged measuring 25.7 cm in the craniocaudal dimension. A few scattered subcentimeter cysts are identified throughout the liver. No liver surface nodularity is identified. There has been interval decrease in size of mildly enlarged nonspecific periportal lymph nodes with the largest portacaval lymph node now measuring 1.3 x 1.2 cm (series 7, image 46), previously 1.9 x 1.7 cm. The intrahepatic and extrahepatic bile ducts are nondilated. Other than a 1.2 cm cyst in the right kidney, the kidneys are normal in appearance. The gallbladder, spleen, pancreas, and adrenal glands are normal. The spleen is no longer enlarged. No free intraperitoneal fluid is identified. Focal ectasia of the infrarenal abdominal aorta measuring up to 2.3 cm in diameter. Procedure Note Lionel Marshall MD - 04/19/2019 EXAMINATION: Magnetic resonance imaging (MRI) of the abdomen without contrast HISTORY: Several prominent periportal lymph nodes, follow-up TECHNIQUE: MRI of the abdomen was performed without administration of intravenous gadolinium contrast according to standard protocol. COMPARISON: Comparison is made with a study from 05/22/2018. FINDINGS: The visible lung bases are clear. There is severe diffuse hepatic steatosis without evidence of cirrhosis. The liver remains enlarged measuring 25.7 cm in the craniocaudal dimension. A few scattered subcentimeter cysts are identified throughout the liver. No liver surface nodularity is identified. There has been interval decrease in size of mildly enlarged nonspecific periportal lymph nodes with the largest portacaval lymph node now measuring 1.3 x 1.2 cm (series 7, image 46), previously 1.9 x 1.7 cm. The intrahepatic and extrahepatic bile ducts are nondilated. Other thana 1.2 cm cyst in the right kidney, the kidneys are normal in appearance.The gallbladder, spleen, pancreas, and adrenal glands are normal. The spleen is no longer enlarged. No free intraperitoneal fluid is identified. Focal ectasia of the infrarenal abdominal aorta measuring up to 2.3 cmin diameter. IMPRESSION: 1. Interval decrease in size of mildly prominent nonspecific periportal lymph nodes, with the largest portacaval lymph node now measuring up to 1.2 cm in short axis, previously 1.7 cm. Given their interval decreasein size, these lymph nodes are likely reactive and no further follow-up is required. 2. Severe hepatic steatosis with hepatomegaly, unchanged. Dictated by Valentin Rai MD (radiology special procedure tech). Dr. LIONEL Han M.D. have personally reviewed and interpreted this examination/study. This report was electronically signed by LIONEL MARSHALL M.D. on 04/19/2019 2:03 PM . Jt Zamora MD MR ORDERABLES * MRI ABDOMEN WWO CONTRAST (05/22/2018 7:18 AM SURGICAL INSTRUMENT REPAIR SPECIALIST) Anatomical Region Laterality Modality Abdomen Magnetic Resonan ce 05/22/2018 8:23 AM SURGICAL INSTRUMENT REPAIR SPECIALIST Impressions 05/22/2018 9:13 AM SURGICAL INSTRUMENT REPAIR SPECIALIST IMPRESSION: 1. Severe hepatic steatosis. Hepatosplenomegaly. 2. Several prominent periportal lymph nodes measuring up to 1.7 cm in the short access. These are likely reactive and can seen in the setting of acute or chronic liver disease. Follow-up MRI is recommended in one year to confirm stability of this finding. Dictated by Julio Cesar Washington MD (radiology special procedure tech). Dr. LIONEL Han M.D. have personally reviewed and interpreted this examination/study. This report was electronically signed by LIONEL MARSHALL M.D. on 05/22/2018 9:13 AM . Narrative 05/22/2018 9:13 AM SURGICAL INSTRUMENT REPAIR SPECIALIST EXAMINATION: Magnetic resonance imaging (MRI) of the abdomen without and with contrast HISTORY: nodule within/adjacent to pancreatic neck. r/o lymph node vs cystic pancreatic neoplasm vs cancer TECHNIQUE: MRI of the abdomen was performed prior to and following the uneventful administration of 20 mL of Multihance intravenous gadolinium contrast according to standard protocol. COMPARISON: Comparison is made with abdominal sonogram dated 05/06/2018. FINDINGS: A small focus of scarring versus atelectasis is seen in the right lung base. The liver is enlarged measuring 25.6 cm in the craniocaudal dimension. Several subcentimeter cysts are seen throughout the liver. There is severe diffuse hepatic steatosis. The liver surface is smooth. No enhancing liver lesions are identified. The intrahepatic and extrahepatic bile ducts are nondilated. The hepatic arterial anatomy is conventional. The portal vein and its major branches are patent. The hepatic veins are patent. Several enlarged periportal lymph nodes are present. The largest of these is seen just posterior to the pancreaticoduodenal groove measuring 2.0 x 1.7 cm (series 7, image 49). The spleen is mildly enlarged measuring 13.5 cm in craniocaudal dimension. A 1.3 cm cyst is seen in the lower pole of the right kidney. The gallbladder, pancreas, adrenal glands, and kidneys are normal. No free intraperitoneal fluid is identified. Procedure Note Lionel Marshall MD - 05/22/2018 EXAMINATION: Magnetic resonance imaging (MRI) of the abdomen without and with contrast HISTORY: nodule within/adjacent to pancreatic neck. r/o lymph node vs cystic pancreatic neoplasm vs cancer TECHNIQUE: MRI of the abdomen was performed prior to and following the uneventful administration of 20 mL of Multihance intravenous gadolinium contrast according to standard protocol. COMPARISON: Comparison is made with abdominal sonogram dated 05/06/2018. FINDINGS: A small focus of scarring versus atelectasis is seen in the right lung base. The liver is enlarged measuring 25.6 cm in the craniocaudal dimension. Several subcentimeter cysts are seen throughout the liver. There issevere diffuse hepatic steatosis. The liver surface is smooth. No enhancingliver lesions are identified. The intrahepatic and extrahepatic bile ducts are nondilated. The hepatic arterial anatomy is conventional. The portal vein and its major branches are patent. The hepatic veins are patent. Several enlarged periportal lymph nodes are present. The largest ofthese is seen just posterior to the pancreaticoduodenal groove measuring 2.0 x 1.7 cm (series 7, image 49). The spleen is mildly enlarged [id number] cm in craniocaudal dimension. A 1.3 cm cyst is seen in the lower pole of the right kidney. The gallbladder, pancreas, adrenal glands, and kidneys are normal. No free intraperitoneal fluid is identified. IMPRESSION: 1. Severe hepatic steatosis. Hepatosplenomegaly. 2. Several prominent periportal lymph nodes measuring up to 1.7 cm inthe short access. These are likely reactive and can seen in the setting of acute or chronic liver disease. Follow-up MRI is recommended in one year to confirm stability of this finding. Dictated by Julio Cesar Washington MD (radiology special procedure tech). I, Dr. LIONEL MARSHALL M.D. have personally reviewed and interpreted this examination/study. This report was electronically signed by LIONEL MARSHALL M.D. on05/22/2018 9:13 AM . Kristen Coelho MD MR ORDERABLES * CREATININE BLOOD - POCT (IP) [facility] (05/22/2018 6:46 AM SURGICAL INSTRUMENT REPAIR SPECIALIST) Creatinine POCT 0.79 0.3 - 1.3 mg/dL [facility] POCT TESTING eGFR POCT 60 60 ml/min [facility] POCT [facility] Blood BLOOD SPECIMEN / Unknown 05/22/2018 6:46 AM SURGICAL INSTRUMENT REPAIR SPECIALIST Kristen Coelho MD LAB - POINT OF CARE ORDERABLES [facility] POCT TESTING [address] [phone] * US ABDOMEN COMPLETE (05/06/2018 8:58 AM SURGICAL INSTRUMENT REPAIR SPECIALIST) Anatomical Region Laterality Modality Abdomen Ultrasound 05/06/2018 8:48 AM SURGICAL INSTRUMENT REPAIR SPECIALIST Impressions 05/06/2018 2:45 PM SURGICAL INSTRUMENT REPAIR SPECIALIST IMPRESSION: 1. Indeterminate nodule within or adjacent to the pancreatic neck. Differential considerations include lymph node adjacent to pancreas, cystic pancreatic neoplasm and adenocarcinoma. MRI abdomen without and with contrast is recommended for further evaluation. 2. Mild hepatic steatosis. No focal hepatic lesion or intrahepatic biliary dilation. Patent hepatic vasculature. 3. No evidence of cholelithiasis or acute cholecystitis. 4. Normal renal size. No evidence of nephrolithiasis or hydronephrosis. A critical result notification was entered into the [employer] system at 9:19 AM on May 06, 2017. Dictated by Troy Lomeli DO (resident). This report was approved by Troy Lomeli on 05/06/2018 10:04 AM . I, Dr. ARABELLA TAN M.D. have personally reviewed and interpreted this examination/study. This report was electronically signed by ARABELLA TAN M.D. on 05/06/2018 2:45 PM . Narrative 05/06/2018 2:45 PM SURGICAL INSTRUMENT REPAIR SPECIALIST EXAMINATION: Complete abdominal sonogram HISTORY: Abdominal pain and swelling. COMPARISON: No prior study is available for comparison. FINDINGS: The liver is increased in echogenicity. No discrete hepatic mass or intrahepatic biliary dilation is seen. A hypoechoic structure in the left hepatic lobe with increased through transmission measuring 0.6 cm likely represents a cyst. Color Doppler evaluation demonstrates patency of the hepatic and portal veins. No gallstones or pericholecystic fluid is seen. The gallbladder wall is normal in thickness, measuring 2 mm. Sonographic Montes De Oca's sign is negative. The common bile duct is nondilated, measuring 5 mm. The spleen measures 12.8 cm in length. There is an indeterminate hypoechoic nodule within or adjacent to the pancreatic neck immediately anterior to the portosplenic confluence measuring 1.6 x 2.5 x 0.8 cm. The pancreatic duct is not clearly seen. No ascites is present. The right kidney measures 12.0 x 5.2 x 5.3 cm. The left kidney measures 12.8 x 6.7 x 6.3 cm. There is no evidence of hydronephrosis, nephrolithiasis, or solid renal mass. The visible aorta and inferior vena cava are patent. Procedure Note Arabella Tan MD - 05/06/2018 EXAMINATION: Complete abdominal sonogram HISTORY: Abdominal pain and swelling. COMPARISON: No prior study is available for comparison. FINDINGS: The liver is increased in echogenicity. No discrete hepatic mass or intrahepatic biliary dilation is seen. A hypoechoic structure in theleft hepatic lobe with increased through transmission measuring 0.6 cm likely represents a cyst. Color Doppler evaluation demonstrates patency of the hepatic and portal veins. No gallstones or pericholecystic fluid is seen. The gallbladder wall is normal in thickness, measuring 2 mm. Sonographic Montes De Oca's sign is negative. The common bile duct is nondilated, measuring 5 mm. The spleen measures 12.8 cm in length. There is an indeterminate hypoechoic nodule within or adjacent to the pancreatic neck immediately anterior to the portosplenic confluence measuring 1.6 x 2.5 x 0.8 cm.The pancreatic duct is not clearly seen. No ascites is present. The right kidney measures 12.0 x 5.2 x 5.3 cm. The left kidney measures 12.8 x 6.7 x 6.3 cm. There is no evidence of hydronephrosis, nephrolithiasis, or solid renal mass. The visible aorta and inferior vena cava are patent. IMPRESSION: 1. Indeterminate nodule within or adjacent to the pancreatic neck. Differential considerations include lymph node adjacent to pancreas, cystic pancreatic neoplasm and adenocarcinoma. MRI abdomen without and with contrast is recommended for further evaluation. 2. Mild hepatic steatosis. No focal hepatic lesion or intrahepaticbiliary dilation. Patent hepatic vasculature. 3. No evidence of cholelithiasis or acute cholecystitis. 4. Normal renal size. No evidence of nephrolithiasis or hydronephrosis. A critical result notification was entered into the [employer] system at9:19 AM on May 06, 2017. Dictated by Troy Lomeli DO (resident). This report was approved by Troy Lomeli on 05/06/2018 10:04 AM . IDr. ARABELLA M.D. have personally reviewed and interpretedthis examination/study. This report was electronically signed by ARABELLA TAN M.D. on05/06/2018 2:45 PM . Kristen Coelho MD US ORDERABLES * (ABNORMAL) C3, C4, COMPLEMENT CH50 (05/04/2018 9:22 AM SURGICAL INSTRUMENT REPAIR SPECIALIST) Complement C3 176 83 - 193 mg/dL [facility] Complement C4 24 15 - 57 mg/dL [facility] Complement Total CH50 >60(H) 31 - 60 U/mL [facility] Comment: Test Performed at: [facility] [id number] [address] [facility] [place] [address] LAURITA RAMIREZ DO,MPH Blood BLOOD SPECIMEN / Unknown 05/04/2018 9:22 AM SURGICAL INSTRUMENT REPAIR SPECIALIST 05/04/2018 9:23 AM SURGICAL INSTRUMENT REPAIR SPECIALIST Kristen Coelho MD LAB - CHEMISTRY ANAT COREAS Performing Organization Address [facility] Co de Phone Number [facility] [phone] [place] [address] * COMPLEMENT C1 ESTERASE INHIBITOR FUNCT ACTIVITY (05/04/2018 9:17 AM SURGICAL INSTRUMENT REPAIR SPECIALIST) Complement C1 Esterase Inhibitor Functional >100 % [facility] Comment: Reference Range: > OR = 68 NORMAL 41-67 EQUIVOCAL < OR = 40 ABNORMAL Less than 40% of the reference functional activity indicates a likely diagnosis of hereditary angioedema or acquired C1 inhibitor deficiency. For additional information, please refer to http://education.RiskIQ/faq/FAQ54 (This link is being provided for informational/educational purposes only.) Test Performed at: [facility] [id number] [place] [address] SOHAIL SEYMOUR MD,PHD,ASHOK Blood BLOOD SPECIMEN / Unknown 05/04/2018 9:17 AM SURGICAL INSTRUMENT REPAIR SPECIALIST 05/04/2018 9:18 AM SURGICAL INSTRUMENT REPAIR SPECIALIST Kristen Coelho MD LAB - CHEMISTRY ANAT COREAS Performing Organization Address [facility] Co de Phone Number [facility] [phone] [place] [address] * DERMATOPATH TECHNICAL REPORT (04/01/2018 12:00 AM SURGICAL INSTRUMENT REPAIR SPECIALIST) Case Report Dermatopathology Report Case: [id number] Authorizing Provider: Jeaneth Funez MD Collected: 04/01/2018 12:00 AM Pathologist: Radha Lara MD Received: 04/02/2018 07:23 AM Specimen: Skin, right hand 12:18 PM SURGICAL INSTRUMENT REPAIR SPECIALIST DERMATOPATHOLOGY LABORATORY Addendum 1 At the request of the diagnosing physician, the technical component for PAS and Colloidal Iron was performed by [facility]. 8 12:18 PM [facility] DERMATOPATHOLOGY LABORATORY Addendum electronically signed by Radha Lara MD on 04/07/2018 at 12:18 PM Clinical History PSO vs CTD. [place] scaly patches. 8 12:18 PM [facility] DERMATOPATHOLOGY LABORATORY Gross Description Specimen A: Received is one formalin filled container labeled with the patient's name and designated right hand. The specimen consists of a punch measuring [id number], bisected. Jar 0. [facility] performed the technical component only. 8 12:18 PM [facility] DERMATOPATHOLOGY LABORATORY Embedded Images 12:18 PM [facility] DERMATOPATHOLOGY LABORATORY DISCLAIMER An external and internal positive and negative controls are appropriate for the histochemical, immunohistochemical and immunofluorescence stain(s) in this case (if any), except where stated explicitly. The performance characteristics of the stain(s) cited in this report were developed and its performance characteristic determined by the Dermatopathology Laboratory at [facility]. These tests need not be, and therefore are not, approved by the [place] Food and Drug Administration. The tests are used for clinical purposes. 8 12:18 PM [facility] DERMATOPATHOLOGY LABORATORY Pathology/Cytolog y TISSUE SPECIMEN FROM SKIN / Unknown 04/01/2018 04/02/2018 7:23 AM SURGICAL INSTRUMENT REPAIR SPECIALIST Jeaneth Funez MD LAB - PATHOLOGY/CYTO LOGY ORDERABLES DERMATOPATHOLOGY LABORATORY [facility] - Department of Dermatology [address] [place] [address], 5th Floor Lab [address] [phone] * [id number] MUTATION ANALYSIS PANEL (03/25/2018 8:58 AM SURGICAL INSTRUMENT REPAIR SPECIALIST) Alpha-1 Antitrypsin Mutation SEE NOTE [facility] Comment: RESULT: NO MUTATION DETECTED Interpretation: DNA testing indicates that this individual is negative for the PI*Z and PI*S alleles in the iguhx-2-ijcvxelcvfy (PI) gene (genotype PI*M/PI*M). This negative result does not rule out the presence of other mutations within the PI gene or other causes of snplp-3-isqlpmgptie deficiency. Therefore, these results should be interpreted in the context of the individual's clinical presentation, and other laboratory tests such as measurement of serum muimv-4-pbzpjxoguya levels. Laboratory testing supervised and results monitored by Marina Nowak, Ph.D., [facility], [facility], [facility]. Wnwxs-0-gofkruwwmdh deficiency is a relatively common autosomal recessive condition. The two most common deficiency alleles in the chlpj-4-kwdkbkxkcis gene (protease inhibitor locus, PI) are designated PI*Z and PI*S, and the normal allele is designated PI*M. The PI*Z/PI*Z, PI*S/PI*Z, and PI*S/PI*S genotypes associated with decreased serum PI levels that are equivalent to approximately 10-20%, 35-40%, and 50-60% of normal, respectively. The PI*Z/PI*Z and PI*S/PI*Z genotypes are reported to be associated with an increased risk of liver disease in childhood, and chronic obstructive pulmonary disease (COPD) and emphysema in adult life. The PI*M/PI*Z, and PI*M/PI*S genotypes are also associated with decreased serum PI levels but these levels, and the PI levels associated with the PI*S/PI*S genotype, are apparently adequate to protect the lungs in the vast majority of individuals. Individuals with the PI*M/PI*Z genotype may have decreased pulmonary function, and may be at increased risk for COPD, especially if they smoke. It should be noted that serum bwfvo-1-nrgkyvpijwa levels can be induced by a wide variety of conditions that include , infection, numerous inflammatory conditions, cancer, and liver disease. Levels of dyayn-4-xpvtphzzrje may be reduced by other conditions. Therefore, immunological and functional determinations of serum rsfle-4-edvbzjetiia levels may not correlate with the individual's PI genotype. The PI*Z, PI*S, and PI*M alleles are detected by multiplex polymerase chain reaction (PCR) amplification of specific regions of the PI gene, followed by restriction enzyme digestion and capillary electrophoresis. This assay does not test for the presence of other mutations within the wxzzg-7-ktktohenkcx gene or non-genetic causes of ujrpo-7-lzdxzhbfqgb deficiency. Since genetic variation and other factors can affect the accuracy of direct mutation testing, these results should be interpreted in light of clinical and familial data. This test was developed and its analytical performance characteristics have been determined by [employer] [facility]. It has not been cleared or approved by FDA. This assay has been validated pursuant to the CLIA regulations and is used for clinical purposes. Clinical Indication NG [facility] Referring Physician LUNA WATSON Comment: Test Performed at: [facility] [id number] [place] [address] SOHAIL SEYMOUR MD,PHD,ASHOK Blood BLOOD SPECIMEN / Unknown 03/25/2018 8:58 AM SURGICAL INSTRUMENT REPAIR SPECIALIST 03/25/2018 8:59 AM SURGICAL INSTRUMENT REPAIR SPECIALIST Darwin Mackenzie MD LAB - CHEMISTRY ANAT COREAS Performing Organization Address [facility] [place] [address] * MITOCHONDRIAL ANTIBODY SCREEN (03/25/2018 8:58 AM SURGICAL INSTRUMENT REPAIR SPECIALIST) Pathologist [facility] Mitochondrial M2 Antibody <20.0 U [facility] Comment: Reference Range: NEGATIVE: < OR = 20.0 EQUIVOCAL: 20.1-24.9 POSITIVE: > OR = 25.0 Test Performed at: [facility] [facility] [id number] [place] [phone] SOHAIL SEYMOUR MD,PHD,ASHOK Blood BLOOD SPECIMEN / Unknown 03/25/2018 8:58 AM SURGICAL INSTRUMENT REPAIR SPECIALIST 03/25/2018 8:59 AM SURGICAL INSTRUMENT REPAIR SPECIALIST Darwin Mackenzie MD LAB - CHEMISTRY ANAT COREAS Performing Organization Address [facility] [place] [address] * HEPATITIS B DNA QUANT (03/25/2018 8:58 AM SURGICAL INSTRUMENT REPAIR SPECIALIST) Pathologist [facility] Hepatitis B Virus DNA <10 NOT DETECTED NOT DETECTED IU/mL [facility] Hepatitis B Virus DNA <1.00 NOT DETECTED NOT DETECTED Log IU/mL [facility] Comment: This test was performed using Real-Time Polymerase Chain Reaction. Reportable Range: 10 IU/mL to 1,000,000,000 IU/mL. (1.00 Log IU/mL to 9.00 Log IU/mL). The analytical performance characteristics of this assay have been determined by [employer]. The modifications have not been cleared or approved by the FDA. This assay has been validated pursuant to the CLIA regulations and is used for clinical purposes. Test Performed at: [facility] [address] [address] LAURITA RAMIREZ DO,MPH Blood BLOOD SPECIMEN / Unknown 03/25/2018 8:58 AM SURGICAL INSTRUMENT REPAIR SPECIALIST 03/25/2018 8:59 AM SURGICAL INSTRUMENT REPAIR SPECIALIST Darwin Mackenzie MD LAB - CHEMISTRY ANAT COREAS Performing Organization Address [facility] [place] [address] * LUZ BLOOD SCREEN W/REFLEX TITER (03/25/2018 8:58 AM SURGICAL INSTRUMENT REPAIR SPECIALIST) Pathologist [facility] LUZ Screen NEGATIVE NEGATIVE [facility] Comment: LUZ IFA is a first line screen for detecting the presence of up to approximately 150 autoantibodies in various autoimmune diseases. A negative LUZ IFA result suggests LUZ-associated autoimmune diseases are not present at this time. Visit Physician FAQs for interpretation of all antibodies in the Bennett, prevalence, and association with diseases at http://education.Outerstuff/ faq/IVX678 Test Performed at: [facility] [employer] [place] [address] LAURITA RAMIREZ DO,MPH Blood BLOOD SPECIMEN / Unknown 03/25/2018 8:58 AM SURGICAL INSTRUMENT REPAIR SPECIALIST 03/25/2018 8:59 AM SURGICAL INSTRUMENT REPAIR SPECIALIST Darwin Mackenzie MD LAB - CHEMISTRY ANAT COREAS Performing Organization Address [facility] de Phone Number [facility] [id number] [place] [address] * MICROSOMAL ANTIBODY LIVER/KIDNEY (03/25/2018 8:58 AM SURGICAL INSTRUMENT REPAIR SPECIALIST) Pathologist [facility] LKM-1 Antibody IgG <=20.0 <=20.0 U [facility] Comment: Reference Range: <=20.0 Negative 20.1-24.9 Equivocal >=25.0 Positive Anti-liver/kidney microsomal antibodies (Anti-LKM-1) were previously tested by indirect immunofluorescence (IF) using rodent liver/kidney substrate. Identification of a specific antibody target as cytochrome P450 IID6 has led to the current recombinant based HOLLIS. Antibodies to this cytochrome are present in approximately 70% of patients with autoimmune hepatitis type 2. This antibody is also present in approximately 10% of patients with hepatitis C infection. Test Performed at: [facility]/[address] RYAN HENDERSON MD,PHD Blood BLOOD SPECIMEN / Unknown 03/25/2018 8:58 AM SURGICAL INSTRUMENT REPAIR SPECIALIST 03/25/2018 8:59 AM SURGICAL INSTRUMENT REPAIR SPECIALIST Darwin Mackenzie MD LAB - CHEMISTRY ANAT COREAS Performing Organization Address [facility] de Phone Number [address] [address] * CERULOPLASMIN (03/25/2018 8:58 AM SURGICAL INSTRUMENT REPAIR SPECIALIST) Ceruloplasmin 30 18 - 53 mg/dL [facility] Comment: Test Performed at: [facility] [address] [address] LAURITA RAMIREZ DO,MPH Blood BLOOD SPECIMEN / Unknown 03/25/2018 8:58 AM SURGICAL INSTRUMENT REPAIR SPECIALIST 03/25/2018 8:59 AM SURGICAL INSTRUMENT REPAIR SPECIALIST Darwin Mackenzie MD LAB - CHEMISTRY ANAT COREAS Performing Organization Address [facility] Co de Phone Number [facility] [id number] [place] [address] * SMOOTH MUSCLE ANTIBODY (03/25/2018 8:58 AM SURGICAL INSTRUMENT REPAIR SPECIALIST) Actin Antibody IgG <20 <20 U [facility] Comment: Reference Range: <20 U: Negative >or=20 U: Positive Antibodies recognizing actin are the main component of smooth muscle antibodies associated with auto- immune liver disease. Actin antibodies are found in approximately 75% of patients with autoimmune hepatitis (AIH) type 1, approximately 65% of patients with autoimmune cholangitis, approximately 30% of patients with primary biliary cirrhosis and approximately 2% of healthy controls. High values are closely correlated with AIH type 1. Test Performed at: [facility] [address] [place] [address] RYAN HENDERSON MD,PHD Blood BLOOD SPECIMEN / Unknown 03/25/2018 8:58 AM SURGICAL INSTRUMENT REPAIR SPECIALIST 03/25/2018 8:59 AM SURGICAL INSTRUMENT REPAIR SPECIALIST Darwin Mackenzie MD LAB - SEROLOGY ORDER YUAN [facility] [address] [place] [address] * (ABNORMAL) CBC WITH DIFFERENTIAL (03/25/2018 8:58 AM SURGICAL INSTRUMENT REPAIR SPECIALIST) Only the most recent of2 resultswithin the time period is included. White Blood Cell Count 8.7 3.8 - 10.8 Thousand/u L [facility] RBC 4.90 3.80 - 5.10 Million/uL [facility] Hemoglobin 15.9(H) 11.7 - 15.5 g/dL [facility] Hematocrit 45.8(H) 35.0 - 45.0 % [facility] MCV 93.5 80.0 - 100.0 fL [facility] MCH 32.4 27.0 - 33.0 pg [facility] MCHC 34.7 32.0 - 36.0 g/dL [facility] RDW 13.4 11.0 - 15.0 % [facility] Platelet Count 217 140 - 400 Thousand/u L [facility] MPV 12.3 7.5 - 12.5 fL [facility] Neutrophil Absolute 5916 1500 - 7800 cells/uL [facility] Lymphocytes Absolute 2236 850 - 3900 cells/uL [facility] Absolute Monocytes 392 200 - 950 cells/uL [facility] Eosinophils Absolute 113 15 - 500 cells/uL [facility] Basophils Absolute 44 0 - 200 cells/uL [facility] Granulocytes % 68 % [facility] Lymphocytes % 25.7 % [facility] Monocytes % 4.5 % [facility] Eosinophils % 1.3 % [facility] Basophils % 0.5 % [facility] Comment: Test Performed at: [facility] [place] [address] [address] [place] [address] LAURITA RAMIREZ DO,MPH Blood BLOOD SPECIMEN / Unknown 03/25/2018 8:58 AM SURGICAL INSTRUMENT REPAIR SPECIALIST 03/25/2018 8:59 AM SURGICAL INSTRUMENT REPAIR SPECIALIST Darwin Mackenzie MD LAB - HEMATOLOGY MANN BHATIA [facility] [address] [place] [address] * (ABNORMAL) COMPREHENSIVE METABOLIC PANEL (03/25/2018 8:58 AM SURGICAL INSTRUMENT REPAIR SPECIALIST) Only the most recent of2 resultswithin the time period is included. Glucose 112(H) 65 - 99 mg/dL [facility] [...] approximately 13% higher for people identified as -[place]. eGFR by MDRD 110 > OR = [...] 29 U/L [facility] Comment: Test Performed at: [facility] [employer] [address] [place] [address] LAURITA RAMIREZ DO,MPH Blood BLOOD SPECIMEN / Unknown 03/25/2018 8:58 AM SURGICAL INSTRUMENT REPAIR SPECIALIST 03/25/2018 8:59 AM SURGICAL INSTRUMENT REPAIR SPECIALIST Darwin Mackenzie MD LAB - CHEMISTRY ANAT COREAS Performing Organization Address [facility] Co de Phone Number [employer] [address] [place] [address] * HEPATITIS B CORE ANTIBODY (03/25/2018 8:58 AM SURGICAL INSTRUMENT REPAIR SPECIALIST) Only the most recent of2 resultswithin the time period is included. Hepatitis B Core Virus Antibody Total NON-REACTI VE NON-REACT SHERINE [facility] Comment: Test Performed at: [facility] [id number] [address] LAURITA RAMIREZ DO,MPH Blood BLOOD SPECIMEN / Unknown 03/25/2018 8:58 AM SURGICAL INSTRUMENT REPAIR SPECIALIST 03/25/2018 8:59 AM SURGICAL INSTRUMENT REPAIR SPECIALIST Darwin Mackenzie MD LAB - CHEMISTRY ANAT COREAS Performing Organization Address [facility] de Phone Number [employer] [address] [place] [address] * GGT (03/25/2018 8:58 AM SURGICAL INSTRUMENT REPAIR SPECIALIST) GGT 32 3 - 70 U/L [facility] Comment: Test Performed at: [facility] [address] [employer] [address] LAURITA RAMIREZ DO,MPH Blood BLOOD SPECIMEN / Unknown 03/25/2018 8:58 AM SURGICAL INSTRUMENT REPAIR SPECIALIST 03/25/2018 8:59 AM SURGICAL INSTRUMENT REPAIR SPECIALIST Darwin Mackenzie MD LAB - CHEMISTRY ANAT COREAS Performing Organization Address [facility] Co de Phone Number [employer] [address] [place] [address] * AMYLASE BLOOD (03/25/2018 8:58 AM SURGICAL INSTRUMENT REPAIR SPECIALIST) Amylase 37 21 - 101 U/L [facility] Comment: Test Performed at: [facility] [id number] [address] LAURITA RAMIREZ DO,MPH Blood BLOOD SPECIMEN / Unknown 03/25/2018 8:58 AM SURGICAL INSTRUMENT REPAIR SPECIALIST 03/25/2018 8:59 AM SURGICAL INSTRUMENT REPAIR SPECIALIST Darwin Mackenzie MD LAB - CHEMISTRY ANAT COREAS Performing Organization Address [facility] Co de Phone Number [facility] [address] [place] [address] * FERRITIN (03/25/2018 8:58 AM SURGICAL INSTRUMENT REPAIR SPECIALIST) Ferritin 88 10 - 232 ng/mL [facility] Comment: Test Performed at: [facility] [address] [place] [address] LAURITA RAMIREZ DO,MPH Blood BLOOD SPECIMEN / Unknown 03/25/2018 8:58 AM SURGICAL INSTRUMENT REPAIR SPECIALIST 03/25/2018 8:59 AM SURGICAL INSTRUMENT REPAIR SPECIALIST Darwin Mackenzie MD LAB - CHEMISTRY ORDDavid COREAS [facility] [address] [place] [address] * HEPATITIS AUTOIMMUNE DIAGNOSTIC PANEL (01/28/2013 10:30 AM CDT) Pathologist [facility] LUZ Screen Negative Negative [facility] ([facility]) Comment: Test Performed at: [facility] [address] [place], [place] NAVNEET GIRON MD LKM1 Antibody <=20.0 <=20.0 U [facility] ([facility]) Comment: Reference Range: <=20.0 Negative 20.1-24.9 Equivocal >=25.0 Positive LKM-1 antibodies are directed against cytochrome P450 2D6. This reactivity is highly specific for autoimmune hepatitis (AIH) type 2, and is not associated with AIH type 1 (lupoid AIH). Approximately 8% of patients with chronic HCV infection can also be LKM-1 positive. Mitochondrial Antibody Screen Negative Negative [facility] ([facility]) Actin Antibody IgG <20 <20 U [facility] ([facility]) Comment: Reference Range: <20 U: Negative >or=20 U: Positive Antibodies recognizing actin are the main component of smooth muscle antibodies associated with auto- immune liver disease. Actin antibodies are found in approximately 75% of patients with autoimmune hepatitis (AIH) type 1, approximately 65% of patients with autoimmune cholangitis, approximately 30% of patients with primary biliary cirrhosis and approximately 2% of healthy controls. High values are closely correlated with AIH type 1. 01/28/2013 10:3 0 AM CDT 01/28/2013 10:31 AM CDT Kelly Caraballo MD LAB - SERO LOGY ORDERABLES Performing Organization Address [facility]/ZIP Co de Phone Number [facility] ([facility]) * VITAMIN D 25-HYDROXY D2+D3 BY TANDEM MASS (01/28/2013 10:30 AM CDT) Vitamin D, 25 Hydroxy Total 40 30 - 100 ng/mL [facility] ([facility]) Comment: 25-OHD3 indicates both endogenous production and supplementation. 25-OHD2 is an indicator of exogenous sources, such as diet or supplementation. Therapy is based on measurement of Total 25-OHD, with levels <20 ng/mL indicative of Vitamin D deficiency, while levels between 20 ng/mL and 30 ng/mL suggest insufficiency. Optimal levels are > or = 30 ng/mL. Vitamin D, 25 Hydroxy D3 40 See Below ng/mL [facility] ([facility]) Comment:Reference Range: Not established Vitamin D, 25 Hydroxy D2 <4 See Below ng/mL [facility] ([facility]) Comment: Reference Range: Not established Test Performed at: [facility] [address] [address] ROBERTO PICKERING MD,FCAP 01/28/2013 10:3 0 AM CDT 01/28/2013 10:31 AM CDT Kelly Caraballo MD LAB - CHEM ISTRY ORDERABLES Performing Organization Address [facility] Co de Phone Number [facility] ([facility]) * URINALYSIS W/MICROSCOPIC NO CULTURE (01/28/2013 10:30 AM CDT) Color UA YELLOW YELLOW [facility] ([facility]) Appearance CLEAR CLEAR [facility] ([facility]) Specific [place] Urine 1.012 1.001 - 1.035 [facility] ([facility]) pH Urine 6.0 5.0 - 8.0 [facility] ([facility]) Glucose UA NEGATIVE NEGATIVE [facility] ([facility]) Bilirubin UA NEGATIVE NEGATIVE [facility] ([facility]) Ketones NEGATIVE NEGATIVE [facility] ([facility]) Blood UA NEGATIVE NEGATIVE [facility] ([facility]) Protein UA NEGATIVE NEGATIVE [facility] ([facility] Nitrite UA NEGATIVE NEGATIVE [facility]) Leukocyte Esterase NEGATIVE NEGATIVE [facility]) WBC Urine NONE SEEN < OR = 5 /HPF [facility] ([facility]) RBC Urine NONE SEEN < OR = 3 /HPF [facility] ([facility]) Squamous Epithelial Cells UA 0-5 < OR = 5 /HPF [facility] ([facility]) Bacteria UA NONE SEEN NONE SEEN /HPF [facility] (H) Hyaline Casts UA NONE SEEN NONE SEEN /LPF [facility] ([facility]) Comment: Test Performed at: [facility] [address] [place] [address] LAURITA RAMIREZ DO,MPH Urine specimen (specimen) URINE SPECIMEN OBTAINED BY CLEAN CATCH PROCEDURE / Unknown 01/28/2013 10:30 AM CDT 01/28/2013 10:31 AM CDT Kelly Caraballo MD LAB - URIN ALYSIS ORDERABLES Performing Organization Address [facility] de Phone Number [facility] ([facility]) * C-REACTIVE PROTEIN (01/28/2013 10:30 AM CDT) C-Reactive Protein 0.23 <0.80 mg/dL [facility] ([facility] Comment: Please be advised that patients taking Carboxypenicillins may exhibit falsely decreased C-Reactive Protein levels due to an analytical interference in this assay. Test Performed at: [place] [address] LAURITA RAMIREZ DO,MPH Venous blood specimen (specimen) 01/28/2013 10:30 AM CDT 01/28/2013 10:31 AM CDT Kelly Caraballo MD LAB - CHEM ISTRY ORDERABLES Performing Organization Address [facility] Co de Phone Number [facility] ([facility] * SS-A/SS-B (SJOGRENS) ANTIBODY PANEL (01/28/2013 10:30 AM CDT) Sjogren's Antibodies (SSA) <1.0 NEG <1.0 NEG AI [facility] ([facility] Sjogren's Antibodies (SSB) <1.0 NEG <1.0 NEG AI [facility] ([facility]) Comment: Test Performed at: [place] [address] LAURITA RAMIREZ DO,MPH 01/28/2013 10:3 0 AM CDT 01/28/2013 10:31 AM CDT Kelly Caraballo MD LAB - CHEM ISTRY ORDERABLES Performing Organization Address [facility]/ZIP Co de Phone Number [facility] ([facility]) * ALDOLASE (01/28/2013 10:30 AM CDT) Aldolase 4.2 < OR = 8.1 U/L [facility] ([facility]) Comment: Test Performed at: [facility] [address] [place] [address] LAURITA RAMIREZ DO,MPH 01/28/2013 10:3 0 AM CDT 01/28/2013 10:31 AM CDT Kelly Caraballo MD LAB - CHEM ISTRY ORDERABLES Performing Organization Address [facility] de Phone Number [facility] ([facility]) * CYCLIC CITRUL PEPTIDE AB IGG (CCP) (01/28/2013 10:30 AM CDT) Pathologist [facility] Cyclic Citrullinated Peptide Antibody <16 UNITS [facility] ([facility]) Comment: Reference Range Negative: <20 Weak Positive: 20-39 Moderate Positive: 40-59 Strong Positive: >59 Test Performed at: [facility] [address] [place] [address] LAURITA RAMIREZ DO,MPH 01/28/2013 10:3 0 AM CDT 01/28/2013 10:31 AM CDT Kelly Caraballo MD LAB - CHEM ISTRY ORDERABLES Performing Organization Address [facility] de Phone Number [facility] ([facility] * ERYTHROCYTE SEDIMENTATION RATE (01/28/2013 10:30 AM CDT) Erythrocyte Sedimentation Rate Westergren 5 < OR = 20 mm/h [facility] ([facility]) Comment: Test Performed at: [facility] [address] [place] [address] LAURITA RAMIREZ DO, MPH Blood specimen (specimen) 01/28/2013 10:30 AM CDT 01/28/2013 10:31 AM CDT Kelly Caraballo MD LAB - RONDA TOLOGY ORDERABLES Performing Organization Address [facility] Co de Phone Number [facility] ([facility]) * HEPATITIS B SURFACE ANTIGEN W RFLX CONFIRMATION (01/28/2013 10:30 AM CDT) Hepatitis B Virus Surface Antigen NON-REACTI VE NON-REACT SHERINE [facility] ([facility]) Comment: Test Performed at: [facility] [address] [place] [address] LAURITA RAMIREZ DO,MPH Venous blood specimen (specimen) 01/28/2013 10:30 AM CDT 01/28/2013 10:31 AM CDT Kelly Caraballo MD LAB - CHEM ISTRY ORDERABLES Performing Organization Address [facility] de Phone Number [facility] * CK BLOOD (01/28/2013 10:30 AM CDT) Pathologist [facility] [place] CK Total 40 29 - 143 U/L [facility] Comment: Test Performed at: [facility] [place] [address] [place] [address] LAURITA RAMIREZ DO,MPH Serum 01/28/2013 10:3 0 AM CDT 01/28/2013 10:31 AM CDT Kelly Caraballo MD LAB - CHEM ISTRY ORDERABLES Performing Organization Address [facility] de Phone Number [facility] * TSH (01/28/2013 10:30 AM CDT) Pathologist [facility] [place] TSH 0.73 mIU/L [facility] Comment: Reference Range > or = 20 Years 0.40-4.50 Ranges First trimester 0.26-2.66 Second trimester 0.55-2.73 Third trimester 0.43-2.91 Test Performed at: [facility] [address] [place] [address] LAURITA RAMIREZ DO,MPH Venous blood specimen (specimen) 01/28/2013 10:30 AM CDT 01/28/2013 10:31 AM CDT Kelly Caraballo MD LAB - CHEM ISTRY ORDERABLES Performing Organization Address [facility]/ZIP Co de Phone Number [facility] * HEPATITIS C ANTIBODY (01/28/2013 10:30 AM CDT) Pathologist [facility] [place] Hepatitis C Antibody NON-REACTI VE NON-REACT SHERINE [facility] Signal/Cutoff 0.03 <1.00 [facility] Comment: Test Performed at: [facility] [address] LAURITA RAMIREZ DO,MPH 01/28/2013 10:3 0 AM CDT 01/28/2013 10:31 AM CDT Kelly Caraballo MD LAB - CHEM ISTRY ORDERABLES Performing Organization Address [facility] de Phone Number [facility] * LAB HISTORICAL RESULTS-ONBASE (01/28/2013) Only the most recent of5 resultswithin the time period is included. 01/28/2013 Narrative [facility] - 10/06/2013 12:03 PM CDT Historical Provider LAB - CHEMISTRY O JACKIE Performing Organization Address [facility]/ZIP Co de Phone Number [facility] [address] [place], [place] [id number] [place] [address] * PATHOLOGY/GENETICS HISTORICAL-ONBASE (10/11/2008) 10/11/2008 Narrative [facility] - 10/05/2013 8:54 AM CDT Historical Provider LAB - CHEMISTRY O RDERABLES [facility] [address] [place] [address], [facility] Care Teams Time Motion Analyst Relationship Specialty Start Date End Date Jt Zamora MD PCP - General 04/12/08
--- OUTSIDE RECORDS SUMMARY | 2024-07-06 00:51 | XMS_ITS | Encounter Summary ---
Author Organization [facility] Address [address] [place] [address] Care Team Providers Care Drilling Assistant Name Role Phone Jt Zamora MD Primary Care Provider [phone] Encounter Details Date Type Department Care Team (Late st Contact Info) Description 10/10/2008 Outpatient Historical [facility] Kirby Brambila MD [address] [place] [address] [place] [address] Heartburn; Diarrhea; Flatulence, Eructation, and Gas Pain Social History Tobacco Use Types Packs/Day Years Used Date Smoking Tobacco: Never Assessed Comments Unknown Sex and Gender Information Value Date Recorded Sex Assigned at Not on file 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 Gender Identity Not on file Sexual Orientation Not on file documented as of this encounter Plan of Treatment Not on file documented as of this encounter Procedures Procedure Name Priority Date/Time Associated Diagnosis Comments PATHOLOGY Routine 10/10/2008 10:24 AM CDT POC , URINE Routine 10/10/2008 7:43 AM CDT documented in this encounter Results * PATHOLOGY (10/10/2008 10:24 AM CDT) FINAL REPORT [facility] [address], [place] [address] 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 Specimen Description: Small bowel. Operative Procedure: Colonoscopy, EGD. Patient Information/Histor y/Diagnosis: Small bowel Bx. Rule out sprue (chronic diarrhea and/or Fe-deficiency anemia). Gross: Received in a single container labeled Bishop Landry, small bowel are four pieces of oropeza tissue ranging from 0.2 to 0.4 cm in greatest dimension. The entire specimen is submitted in cassette A1. [facility] 10.10.2008 12:32 pm Microscopic: Received are slides labeled [id number], Bishop Landry. Sections of small bowel contain four fragments of small intestinal mucosa showing no significant histopathologic abnormalities. There is no significant increase in intraepithelial or lamina propria inflammation. Villous architecture appears preserved, without evidence of villous blunting. There is no evidence of active inflammation, granulomas, or foveolar metaplasia. [facility] 10.11.2008 10:12 am Staging Form: No. ELECTRONIC SIGNATURE FOR LIANA TITUS M.D.- 10/11/08 03:24 pm INTERFACE SYSTEM 10/10/2008 10:2 4 AM CDT Kirby Brambila MD PATHOLOGY/CYTOLOGY ORDERABLES Final Result INTERFACE SYSTEM Refer to clinic/hospital department * POC , URINE (10/10/2008 7:43 AM CDT) , URINE POC Negative Negative [facility] 10/10/2008 7:43 AM CDT 10/10/2008 7:43 AM CDT Kirby Brambila MD POINT OF CARE TESTING Final R esult INTERFACE SYSTEM Refer to clinic/hospital department [facility] CLIA# [id number] [address] [place] [address] documented in this encounter Visit Diagnoses Diagnosis Heartburn Diarrhea Flatulence, eructation, and gas pain documented in this encounter Care Teams Drilling Assistant Relationship Specialty Start Date End Date Jt Zamora MD [facility] [place] [address] PCP - General Family Practice 12/17/11 documented as of this encounter
--- OUTSIDE RECORDS SUMMARY | 2024-07-06 00:51 | XMS_ITS | Encounter Summary ---
Author Organization [employer] [facility] Address 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 Gender Identity Not on file Sexual Orientation Not on file documented as of this encounter Plan of Treatment Not on file documented as of this encounter Procedures Procedure Name Priority Date/Time Associated Diagnosis Comments LUZ PANEL Routine 07/23/2007 7:47 AM CDT HEPATITIS B SURFACE AB, QUAL Routine 07/23/2007 7:47 AM CDT HLA B27 Routine 07/23/2007 7:47 AM CDT HEPATITIS C ANTIBODY Routine 07/23/2007 7:47 AM CDT CYCLIC CITRULLINATED PEPTIDE AB IGG Routine 07/23/2007 7:47 AM CDT ALDOLASE Routine 07/23/2007 7:47 AM CDT CBC WITH DIFFERENTIAL Routine 07/23/2007 7:47 AM CDT URINALYSIS W/REFLEX MICROSCOPIC Routine 07/23/2007 7:47 AM CDT SEDIMENTATION RATE Routine 07/23/2007 7: 47 AM CDT RHEUMATOID FACTOR Routine 07/23/2007 7:4 7 AM CDT COMPLEMENT C3 Routine 07/23/2007 7:47 AM CDT COMPLEMENT C4 Routine 07/23/2007 7:47 AM CDT C-REACTIVE PROTEIN Routine 07/23/2007 7: 47 AM CDT TSH Routine 07/23/2007 7:47 AM CDT LACTATE DEHYDROGENASE Routine 07/23/2007 7:47 AM CDT CK Routine 07/23/2007 7:47 AM CDT COMPREHENSIVE METABOLIC PANEL Routine 07/23/2007 7:47 AM CDT XR FOOT 2 VW RIGHT Routine 07/23/2007 7: 12 AM CDT XR FOOT 2 VW LEFT Routine 07/23/2007 7:1 2 AM CDT XR ANKLE 2 VW RIGHT Routine 07/23/2007 7 :12 AM CDT XR ANKLE 2 VW LEFT Routine 07/23/2007 7: 12 AM CDT XR HAND 2 VW RIGHT Routine 07/23/2007 7: 12 AM CDT XR HAND 2 VW LEFT Routine 07/23/2007 7:1 2 AM CDT XR WRIST 2 VW RIGHT Routine 07/23/2007 7 :12 AM CDT XR WRIST 2 VW LEFT Routine 07/23/2007 7: 12 AM CDT documented in this encounter Results * CYCLIC CITRULLINATED PEPTIDE AB IGG (07/23/2007 7:47 AM CDT) Pathologist [facility] CYCLIC CITRULLINATED PEPTIDE AB IGG <20 Units [facility] Comment: REFERENCE RANGE: NEGATIVE: <20 WEAK POSITIVE: 20-39 MODERATE/STRONG POSITIVE: 40-59 STRONG POSITIVE: >59 Lab test performed by: [facility] [id number] [employer] [id number] LAURITA GARCIA MD Blood specimen (specimen) 07/23/2007 7:47 AM CDT 07/23/2007 9:21 AM CDT Scooter Wood MD CHEMISTRY ORDERABLES Final Resu lt Performing Organization Address [facility] Co de Phone Number [facility] [address] [place] [address] * ALDOLASE (07/23/2007 7:47 AM CDT) [facility] ALDOLASE 3.3 < OR = 8.1 U/L [facility] Comment: Lab test performed by: [facility] [id number] [employer] [phone] LAURITA GARCIA MD Blood specimen (specimen) 07/23/2007 7:47 AM CDT 07/23/2007 8:06 AM CDT Scooter Wood MD CHEMISTRY ORDERABLES Final Resu lt Performing Organization Address City/[facility] Co de Phone Number [facility] [address] [place] [address] * RHEUMATOID FACTOR (07/23/2007 7:47 AM CDT) Pathologist [facility] RHEUMATOID FACTOR <6.0 0.0 - 13.9 IU/mL [facility] Blood specimen (specimen) 07/23/2007 7:47 AM CDT 07/23/2007 8:04 AM CDT us Scooter Wood MD CHEMISTRY ORDERABLES Final Resu lt Performing Organization Address [facility] Co de Phone Number [facility] [address] [place] [address] * COMPLEMENT C4 (07/23/2007 7:47 AM CDT) COMPLEMENT C4 20 10 - 40 mg/dL [facility] Blood specimen (specimen) 07/23/2007 7:47 AM CDT 07/23/2007 8:04 AM CDT us Scooter Wood MD CHEMISTRY ORDERABLES Final Resu lt Performing Organization Address [facility] Phone Number [facility] [address] [place] [address] * COMPLEMENT C3 (07/23/2007 7:47 AM CDT) COMPLEMENT C3 158 90 - 180 mg/dL [facility] Blood specimen (specimen) 07/23/2007 7:47 AM CDT 07/23/2007 8:04 AM CDT us Scooter Wood MD CHEMISTRY ORDERABLES Final Resu lt Performing Organization Address [facility] de Phone Number [facility] [address] [place] [address] * LUZ PANEL (07/23/2007 7:47 AM CDT) LUZ SCREEN NEGATIVE NEGATIVE [facility] Comment: Lab test performed by: [email or web address] [id number] [phone] LAURITA GARCIA MD DNA AUTOABS DOUBLE STRANDED 4 IU/mL [facility] Comment: IU/mL INTERPRETATION ===== < OR = 4 NEGATIVE 5 - 9 INDETERMINATE > OR = 10 POSITIVE Lab test performed by: [facility] [address] [place] [address] LAURITA GARCIA MD SCLERODERMA AB SCL 70 <1.0 NEG <1.0 NEG Index [facility] Comment: Lab test performed by: [facility] [address] [place] [phone] LAURITA GARCIA MD SJOGRENS ABS (SSB) <1.0 NEG <1.0 NEG Index [facility] Comment: Lab test performed by: [facility] [address] [place] [phone] LAURITA GARCIA MD RUSS ABS, SM/DRILLING FLUIDS SPECIALIST AB <1.0 NEG <1.0 NEG Index [facility] Comment: Lab test performed by: [facility] [address] [place] [phone] LAURITA GARCIA MD RUSS ABS, SM AB <1.0 NEG <1.0 NEG Index [facility] SJOGRENS ABS (SSA) <1.0 NEG <1.0 NEG Index [facility] Blood specimen (specimen) 07/23/2007 7:47 AM CDT 07/23/2007 8:04 AM CDT Scooter Wood MD CHEMISTRY ORDERABLES Edited [facility] [address] [place] [address] * (ABNORMAL) HLA B27 (07/23/2007 7:47 AM CDT) HLA B27 DETECTED(A ) [facility] Comment: THE HLA B27 ANTIGEN IS PRESENT IN 9% OF AND 4% OF BLACK POPULATIONS. THIS ANTIGEN IS SEEN WITH A FREQUENCY OF 90% IN PATIENTS WITH ANKYLOSING SPONDYLITIS AND A FREQUENCY OF 80% IN PATIENTS WITH REITERS DISEASE. Lab test performed by: [email or web address] [address] [place] [phone] LAURITA GARCIA MD Blood specimen (specimen) 07/23/2007 7:47 AM CDT 07/23/2007 8:06 AM CDT us Scooter Wood MD CHEMISTRY ORDERABLES Final Resu lt Performing Organization Address [facility] Phone Number [facility] [address] [place] [address] * HEPATITIS C ANTIBODY (07/23/2007 7:47 AM CDT) HEPATITIS C AB NON-REACTI VE NON-REACT SHERINE [facility] SIGNAL TO CUT OFF 0.05 <1.00 [facility] Comment: Lab test performed by: [email or web address] [place] [id number] [address] [phone] LAURITA GARCIA MD Blood specimen (specimen) 07/23/2007 7:47 AM CDT 07/23/2007 8:04 AM CDT us Scooter Wood MD CHEMISTRY ORDERABLES Final Resu lt Performing Organization Address [facility] de Phone Number [facility] [address] [place] [address] * HEPATITIS B SURFACE AB (07/23/2007 7:47 AM CDT) HEPATITIS B SURFACE AB <5 mIU/mL [facility] Comment: PATIENT DOES NOT HAVE IMMUNITY TO HEPATITIS B VIRUS. Lab test performed by: [email or web address] [place] [id number] [address] [phone] LAURITA GARCIA MD Blood specimen (specimen) 07/23/2007 7:47 AM CDT 07/23/2007 8:06 AM CDT us Scooter Wood MD CHEMISTRY ORDERABLES Final Resu lt Performing Organization Address [facility]/ZIP Co de Phone Number [facility] [address] [place] [address] * TSH (07/23/2007 7:47 AM CDT) [facility] TSH 1.07 0.27 - 4.20 uU/mL [facility] Blood specimen (specimen) 07/23/2007 7:47 AM CDT 07/23/2007 8:04 AM CDT Scooter Wood MD CHEMISTRY ORDERABLES Final Resu lt Performing Organization Address [facility] Co de Phone Number [facility] [address] [place] [address] * (ABNORMAL) LACTATE DEHYDROGENASE (07/23/2007 7:47 AM CDT) [facility] LD (LACTATE DEHYDROGENASE) 129(L) 135 - 214 U/L [facility] Blood specimen (specimen) 07/23/2007 7:47 AM CDT 07/23/2007 8:04 AM CDT Scooter Wood MD CHEMISTRY ORDERABLES Final Resu lt Performing Organization Address [facility] Co de Phone Number [facility] [address] [place] [address] * (ABNORMAL) CBC WITH DIFFERENTIAL (07/23/2007 7:47 AM CDT) [facility] HEMOGLOBIN 15.4(H) 11.8 - 14.8 g/dL [facility] RDW 13.8 11.5 - 14.5 % [facility] WBC 9.4 4.0 - 9.8 K/uL [facility] MCH 32.4 27.2 - 32.6 pg [facility] MPV 12.1 9.3 - 12.4 fL [facility] HEMATOCRIT 45.2(H) 35.5 - 44.0 % [facility] RDW-STDEV 47.6 37.1 - 48.7 fL [facility] RBC 4.75 3.90 - 4.90 M/uL [facility] MCHC 34.1 31.5 - 35.5 % [facility] MCV 95.2 82.0 - 99.0 fL [facility] PLATELETS 215 140 - 350 K/uL [facility] EOSINOPHILS 2 0 - 7 % [facility] EOSINOPHIL ABSOLUTE 0.22 0.00 - 0.70 K/uL [facility] LYMPHOCYTES 23 16 - 45 % [facility] LYMPHOCYTE ABSOLUTE 2.15 0.70 - 4.50 K/uL [facility] BASOPHILS 0 0 - 2 % [facility] BASOPHILS ABSOLUTE 0.03 0.00 - 0.20 K/uL [facility] MONOCYTES 4 3 - 13 % [facility] MONOCYTE ABSOLUTE 0.42 0.10 - 1.30 K/uL [facility] NEUTROPHILS 70 45 - 70 % [facility] NEUTROPHIL ABSOLUTE 6.62 1.90 - 7.00 K/uL [facility] Blood specimen (specimen) 07/23/2007 7:47 AM CDT 07/23/2007 8:29 AM CDT us Scooter Wood MD HEMATOLOGY ORDERABLES Edited INTERFACE SYSTEM Refer to clinic/hospital department [facility] [address] [place] [address] * CK (07/23/2007 7:47 AM CDT) CK 50 10 - 145 U/L [facility] Blood specimen (specimen) 07/23/2007 7:47 AM CDT 07/23/2007 8:04 AM CDT us Scooter Wood MD CHEMISTRY ORDERABLES Final Resu lt [facility] [address] [place] [address] * (ABNORMAL) COMPREHENSIVE METABOLIC PANEL (07/23/2007 7:47 AM CDT) CREATININE 0.52 0.51 - 0.95 mg/dL [facility] ALT 17 0 - 31 U/L [facility] SODIUM 135 135 - 145 mmol/L [facility] ALKALINE PHOSPHATASE 50 35 - 104 U/L [facility] CO2 23 22 - 30 mmol/L [facility] BILIRUBIN TOTAL 0.3 0.2 - 1.0 mg/dL [facility] POTASSIUM 4.1 3.5 - 4.9 mmol/L [facility] TOTAL PROTEIN 7.7 6.3 - 8.6 g/dL [facility] GLUCOSE 110(H) 65 - 99 mg/dL [facility] AST 17 12 - 32 U/L [facility] BUN 13 6 - 20 mg/dL [facility] CALCIUM 8.9 8.4 - 10.2 mg/dL [facility] ALBUMIN 4.4 3.4 - 4.8 g/dL [facility] CHLORIDE 102 96 - 108 mmol/L [facility] GFR, >60 >=60 mL/min/1. 7 sq meter [facility] GFR >60 >=60 mL/min/1. 7 sq meter [facility] Comment: Estimated GFR rate interpretative information for both Americans and non- Americans is available on the [facility] Intranet at: [email or web address] Select: Lab Policies and Procedures Select: Reference Ranges - GFR Blood specimen (specimen) 07/23/2007 7:47 AM CDT 07/23/2007 8:04 AM CDT us Scooter Wood MD CHEMISTRY ORDERABLES Edited Performing Organization Address [facility] de Phone Number [facility] [address] [place] [address] * C-REACTIVE PROTEIN (07/23/2007 7:47 AM CDT) Pathologist [facility] CRP 0.3 0.0 - 0.8 mg/dL [facility] Blood specimen (specimen) 07/23/2007 7:47 AM CDT 07/23/2007 8:04 AM CDT us Scooter Wood MD CHEMISTRY ORDERABLES Final Resu lt Performing Organization Address [facility] de Phone Number [facility] [address] [place] [address] * SEDIMENTATION RATE (07/23/2007 7:47 AM CDT) Pathologist [facility] ESR (SEDIMENTATION RATE) 6 0 - 20 mm/hr [facility] Blood specimen (specimen) 07/23/2007 7:47 AM CDT 07/23/2007 8:29 AM CDT us Scooter Wood MD HEMATOLOGY ORDERABLES Final Res ult Performing Organization Address [facility] de Phone Number [facility] [address] [place] [address] * URINALYSIS (07/23/2007 7:47 AM CDT) CLARITY UA Clear Clear [facility] BILIRUBIN UA Negative Negative [facility] PROTEIN UA Negative Negative [facility] LEUKOCYTE ESTERASE UA Negative Negative [facility] SPECIFIC GRAVITY UA 1.009 1.001 - 1.035 [facility] GLUCOSE UA Negative Negative [facility] BLOOD UA Negative Negative [facility] COLOR UA Pale Yellow [facility] NITRITE UA Negative Negative [facility] UROBILINOGEN UA <1 <=1 mg/dL [facility] PH UA 5.0 5.0 - 8.0 [facility] KETONES UA Negative Negative [facility] 07/23/2007 7:47 AM CDT 07/23/2007 8:32 AM CDT Scooter Wood MD URINE ORDERABLES Final Result [facility] [address] [place] [address] * XR WRIST 2 VW RIGHT (07/23/2007 7:12 AM CDT) Anatomical Region Laterality Modality Wrist / Hand Other 07/23/2007 7:12 AM CDT Narrative 07/23/2007 9:39 AM CDT [facility] [address] [place], [place] [address] Admit Date: 07/23/2007 BISHOP LANDRY Sex: F Admit Prov: KARELUMUDonya Leung Date: 1965 Primary Care Prov: KARELUMUDonya Leung CMRN: [id number] Room: [facility] SSN: [id number] IMAGING SERVICES Ordering Prov: N/A Accession Number: [id number] Interpretation RIGHT WRIST TWO VIEWS 07/23/2007 Clinical Indication: 42-year-old woman with arthropathy Report: AP and lateral radiographs of the right wrist dated 07/23/2007 Comparisons: None Findings: Bone mineralization and alignment is within normal limits. There is no acute fracture or dislocation. Joint spaces are preserved. No soft tissue calcifications are seen. There is no chondrocalcinosis. Impression: Unremarkable right wrist. . Dictated by: NAM LUNA 07/23/2007 08:49 Electronically signed by: NAM LUNA 07/23/2007 09:39 Transcribed: 07/23/2007 09:38 AMK Procedure Note Provider, Historical - 07/23/[address] [address] Admit Date: 07/23/2007 BISHOP LANDRY Sex: F Admit Prov: KARELSCOOTER Madhu Date:1965 Primary Care Prov: KARELUMUDonya Leung CMRN: [id number] Room: [facility] SSN: [address] [place] [address] IMAGING SERVICES Ordering Prov: N/A Interpretation RIGHT WRIST TWO VIEWS 07/23/2007 Clinical Indication: 42-year-old woman with arthropathy Report: AP and lateral radiographs of the right wrist date07/23/2007 Comparisons: None Findings: Bone mineralization and alignment is within normal limits.There is no acute fracture or dislocation. Joint spaces are preserved. Nosoft tissue calcifications are seen. There is no chondrocalcinosis. Impression: Unremarkable right wrist. . Dictated by: NAM LUNA 07/23/2007 08:49 Electronically signed by: NAM LUNA 07/23/2007 09:39 Transcribed: 07/23/2007 09:38 AMK Scooter Wood MD DIAGNOSTIC IMAGING ORDERABLES F inal Result * XR WRIST 2 VW LEFT (07/23/2007 7:12 AM CDT) Anatomical Region Laterality Modality Wrist / Hand Other 07/23/2007 7:12 AM CDT Narrative 07/23/2007 9:38 AM CDT [address] [address] [place], [place] [address] Admit Date: 07/23/2007 BISHOP LANDRY Sex: F Admit Prov: SCOOTER WOOD Date: 1965 Primary Care Prov: SCOOTER WOOD CMRN: [id number] Room: [facility]: [phone] IMAGING SERVICES Ordering Prov: N/A Accession Number: [id number] Interpretation LEFT WRIST 2 VIEWS 07/23/2007 History: 42-year-old woman with arthropathy Report: AP and lateral radiographs of the left wrist dated 07/23/2007 Comparisons: None Findings: Bone mineralization and alignment is within normal limits. There is no acute fracture or dislocation. There is a small sclerotic focus within the distal radius, compatible with a bone island. There is mild narrowing of the first CMC joint space, likely degenerative in etiology. The remainder of the joint spaces are preserved. No erosions are seen. There is no chondrocalcinosis or other soft tissue calcifications. Impression: 1. Mild narrowing of the first CMC joint space, likely degenerative in etiology. . Dictated by: NAM LUNA 07/23/2007 08:47 Electronically signed by: NAM LUNA 07/23/2007 09:38 Transcribed: 07/23/2007 09:36 AMK Procedure Note Provider, Historical - 07/23/2007 [address] [place], [place] [address] Admit Date: 07/23/2007 BISHOP LANDRY Sex: F Admit Prov: SCOOTER WOOD Date:1965 Primary Care Prov: SCOOTER WOOD CMRN: [id number] Room: [facility]ERE[facility]ul N: [id number] IMAGING SERVICES Ordering Prov: N/A Interpretation LEFT WRIST 2 VIEWS 07/23/2007 History: 42-year-old woman with arthropathy Report: AP and lateral radiographs of the left wrist date07/23/2007 Comparisons: None Findings: Bone mineralization and alignment is within normal limits.There is no acute fracture or dislocation. There is a small scleroticfocus within the distal radius, compatible with a bone island. There ismild narrowing of the first CMC joint space, likely degenerative inetiology. The remainder of the joint spaces are preserved. No erosions areseen. There is no chondrocalcinosis or other soft tissue calcifications. Impression: 1. Mild narrowing of the first CMC joint space, likely degenerativein etiology. . Dictated by: NAM LUNA 07/23/2007 08:47 Electronically signed by: NAM LUNA 07/23/2007 09:38 Transcribed: 07/23/2007 09:36 AMK Scooter Wood MD DIAGNOSTIC IMAGING ORDERABLES F inal Result * XR HAND 2 VW RIGHT (07/23/2007 7:12 AM CDT) Anatomical Region Laterality Modality Wrist / Hand Other 07/23/2007 7:12 AM CDT Narrative 07/23/2007 9:38 AM CDT [address] [address] Admit Date: 07/23/2007 LANDRY BISHOP Sex: F Admit Prov: SCOOTER WOOD Date: 1965 Primary Care Prov: SCOOTER WOOD CMRN: [id number] Room: [facility] SSN: [id number] IMAGING SERVICES Ordering Prov: N/A Accession Number: [id number] Interpretation RIGHT HAND TWO VIEWS 07/23/2007 Clinical indication: 42-year-old woman with history of arthritis Report: AP and oblique radiographs of the right hand dated 07/23/2007 Comparisons: None Findings: Bone mineralization and alignment is within normal limits. There is no acute fracture or dislocation. There is mild narrowing of the first IP joint with marginal osteophyte formation. The remainder of the joint spaces are preserved. No erosions or soft tissue calcifications are seen. There is no chondrocalcinosis. Impression: 1. Mild degenerative arthritis first IP joint. . Dictated by: NAM LUNA 07/23/2007 08:46 Electronically signed by: NAM LUNA 07/23/2007 09:38 Transcribed: 07/23/2007 09:36 AMK Procedure Note Provider, Historical - 07/23/[address] [place], [place] [address] Admit Date: 07/23/2007 BISHOP LANDRY Sex: F Admit Prov: SCOOTER WOOD Date:1965 Primary Care Prov: SCOOTER WOOD CMRN: [id number] Room: [facility] SSN: [address] [place] [address] IMAGING SERVICES Ordering Prov: N/A Interpretation RIGHT HAND TWO VIEWS 07/23/2007 Clinical indication: 42-year-old woman with history of arthritis Report: AP and oblique radiographs of the right hand date07/23/2007 Comparisons: None Findings: Bone mineralization and alignment is within normal limits.There is no acute fracture or dislocation. There is mild narrowing of thefirst IP joint with marginal osteophyte formation. The remainder of thejoint spaces are preserved. No erosions or soft tissue calcifications areseen. There is no chondrocalcinosis. Impression: 1. Mild degenerative arthritis first IP joint. . Dictated by: NAM LUNA 07/23/2007 08:46 Electronically signed by: NAM LUNA 07/23/2007 09:38 Transcribed: 07/23/2007 09:36 AMK Scooter Wood MD DIAGNOSTIC IMAGING ORDERABLES F inal Result * XR HAND 2 VW LEFT (07/23/2007 7:12 AM CDT) Anatomical Region Laterality Modality Wrist / Hand Other 07/23/2007 7:12 AM CDT Narrative 07/23/2007 9:39 AM CDT [address] [address] [place], [place] [address] Admit Date: 07/23/2007 BISHOP LANDRY Sex: F Admit Prov: SCOOTER WOOD Date: 1965 Primary Care Prov: SCOOTER WOOD CMRN: [id number] Room: [facility] SSN: [address] [place] [address] IMAGING SERVICES Ordering Prov: N/A Accession Number: [id number] Interpretation LEFT HAND TWO VIEWS 07/23/2007 Clinical Indication: 42-year-old woman with history of arthritis Report: AP and oblique radiographs of the left hand dated 07/23/2007 Comparisons: None Findings: Bone mineralization and alignment is within normal limits. There is no acute fracture or dislocation. The joint spaces are preserved. No erosions are identified. There is no soft tissue calcification or chondrocalcinosis seen. Impression: Essentially unremarkable plain radiographs of left hand. . Dictated by: NAM LUNA 07/23/2007 08:44 Electronically signed by: NAM LUNA 07/23/2007 09:39 Transcribed: 07/23/2007 09:34 AMK Procedure Note Provider, Historical - 07/23/2007 [facility] [address] [place], [place] [address] Admit Date: 07/23/2007 BISHOP LANDRY Sex: F Admit Prov: SCOOTER WOOD Date:1965 Primary Care Prov: SCOOTER WOOD CMRN: [id number] Room: [facility] SSN: [id number] IMAGING SERVICES Ordering Prov: N/A Interpretation LEFT HAND TWO VIEWS 07/23/2007 Clinical Indication: 42-year-old woman with history of arthritis Report: AP and oblique radiographs of the left hand dated 07/23/2007 Comparisons: None Findings: Bone mineralization and alignment is within normal limits.There is no acute fracture or dislocation. The joint spaces are preserved.No erosions are identified. There is no soft tissue calcification or chondrocalcinosis seen. Impression: Essentially unremarkable plain [facility] [place]. . Dictated by: NAM LUNA 07/23/2007 08:44 Electronically signed by: NAM LUNA 07/23/2007 09:39 Transcribed: 07/23/2007 09:34 AMK Scooter Wood MD DIAGNOSTIC IMAGING ORDERABLES F inal Result * XR FOOT 2 VW RIGHT (07/23/2007 7:12 AM CDT) Anatomical Region Laterality Modality Ankle / Foot Other 07/23/2007 7:12 AM CDT Narrative 07/23/2007 9:49 AM CDT [address] [address] Admit Date: 07/23/2007 BISHOP LANDRY Sex: F Admit Prov: SCOOTER WOOD Date: 1965 Primary Care Prov: SCOOTER WOOD CMRN: [id number] [facility] [id number] IM[facility]ING SERVICES Ordering Prov: N/A Accession Number: [id number] Interpretation RIGHT FOOT 2 VIEWS 07/23/2007 History: 42-year-old woman with arthropathy Report: AP and lateral radiographs of the right foot dated 07/23/2007 Comparison: None Findings: Bone mineralization and alignment is within normal limits. There is no acute fracture or dislocation. The joint spaces are preserved. No erosions are seen. There are prominent plantar and posterior calcaneal spurs. Impression: Prominent plantar and posterior calcaneal spurs. . Dictated by: NAM LUNA 07/23/2007 08:52 Electronically signed by: NAM LUNA 07/23/2007 09:49 Transcribed: 07/23/2007 09:40 AMK Procedure Note Provider, Historical - 07/23/[address] [address] Admit Date: 07/23/2007 BISHOP LANDRY Sex: F Admit Prov: SCOOTER WOOD Date:1965 Primary Care Prov: SCOOTER WOOD CMRN: [id number] [facility]: [id number] IMAGING SERVICES Ordering Prov: N/A Interpretation RIGHT FOOT 2 VIEWS 07/23/2007 History: 42-year-old woman with arthropathy Report: AP and lateral radiographs of the right foot date07/23/2007 Comparison: None Findings: Bone mineralization and alignment is within normal limits.There is no acute fracture or dislocation. The joint spaces are preserved.No erosions are seen. There are prominent plantar and posteriorcalcaneal spurs. Impression: Prominent plantar and posterior calcaneal spurs. . Dictated by: NAM LUNA 07/23/2007 08:52 Electronically signed by: NAM LUNA 07/23/2007 09:49 Transcribed: 07/23/2007 09:40 AMK Scooter Wood MD DIAGNOSTIC IMAGING ORDERABLES F inal Result * XR FOOT 2 VW LEFT (07/23/2007 7:12 AM CDT) Anatomical Region Laterality Modality Ankle / Foot Other 07/23/2007 7:12 AM CDT Narrative 07/23/2007 9:49 AM CDT [place] [address] [place], [place] [address] Admit Date: 07/23/2007 BISHOP LANDRY Sex: F Admit Prov: SCOOTER WOOD Date: 1965 Primary Care Prov: SCOOTER WOOD CMRN: [id number] Room: [facility] SSN: [id number] IMAGING SERVICES Ordering Prov: N/A Accession Number: [id number] Interpretation LEFT FOOT 2 VIEWS 07/23/2007 Clinical Indication: 42-year-old woman with arthropathy Report: AP and lateral radiographs of the left foot dated 07/23/2007 Comparisons: None Findings: Bone mineralization and alignment is within normal limits. There is no acute fracture or dislocation. There is mild narrowing of the first MTP joint, likely degenerative in etiology. There are prominent plantar and posterior calcaneal spurs. There may be a bipartite medial hallux sesamoid. Impression: 1. Mild narrowing of the first MTP joint, likely degenerative in etiology 2. Prominent plantar and posterior calcaneal spurs. . Dictated by: NAM LUNA 07/23/2007 08:53 Electronically signed by: NAM LUNA 07/23/2007 09:49 Transcribed: 07/23/2007 09:41 AMK Procedure Note Provider, Historical - 07/23/2007 [address] [address] [place], [place] [address] Admit Date: 07/23/2007 BISHOP LANDRY Sex: F Admit Prov: SCOOTER WOOD Date:1965 Primary Care Prov: SCOOTER WOOD CMRN: [id number] Room: [facility] SSN: [id number] IMAGING SERVICES Ordering Prov: N/A Interpretation LEFT FOOT 2 VIEWS 07/23/2007 Clinical Indication: 42-year-old woman with arthropathy Report: AP and lateral radiographs of the left foot dated 07/23/2007 Comparisons: None Findings: Bone mineralization and alignment is within normal limits.There is no acute fracture or dislocation. There is mild narrowing of thefirst MTP joint, likely degenerative in etiology. There are prominentplantar and posterior calcaneal spurs. There may be a bipartite medial halluxsesamoid. Impression: 1. Mild narrowing of the first MTP joint, likely degenerative inetiology 2. Prominent plantar and posterior calcaneal spurs. . Dictated by: NAM LUNA 07/23/2007 08:53 Electronically signed by: NAM LUNA 07/23/2007 09:49 Transcribed: 07/23/2007 09:41 AMK us Scooter Wood MD DIAGNOSTIC IMAGING ORDERABLES F inal Result * XR ANKLE 2 VW RIGHT (07/23/2007 7:12 AM CDT) Anatomical Region Laterality Modality Ankle / Foot Other 07/23/2007 7:12 AM CDT Narrative 07/23/2007 9:49 AM CDT [address] [address] Admit Date: 07/23/2007 BISHOP LANDRY Sex: F Admit Prov: SCOOTER WOOD Date: 1965 Primary Care Prov: SCOOTER WOOD CMRN: [id number] [facility]: [id number] IMAGING SERVICES Ordering Prov: N/A Accession Number: [id number] Interpretation RIGHT ANKLE 2 VIEWS 07/23/2007 History: 42-year-old woman with arthropathy Report: AP and lateral radiograph of the right ankle dated 07/23/2007 Comparisons: None Findings: Bone mineralization and alignment is within normal limits. Prominent plantar and posterior calcaneal spurs are seen. There is no acute fracture or dislocation. There is mild soft tissue swelling over the lateral malleolus. There is an osseous protuberance arising from the lateral aspect of the lateral malleolus which is nonspecific and may represent sequela of prior trauma. There is minimal spurring emanating from the medial malleolus. Impression: 1. Prominent plantar and posterior calcaneal spurs 2. Soft tissue swelling of the lateral malleolus. There is an osseous excrescence arising from the lateral aspect of the lateral malleolus which is nonspecific. This may represent the sequela of prior trauma. . Dictated by: NAM LUNA 07/23/2007 08:49 Electronically signed by: NAM LUNA 07/23/2007 09:49 Transcribed: 07/23/2007 09:39 AMK Procedure Note Provider, Historical - 07/23/2007 [facility] [address] [place], [place] [address] Admit Date: 07/23/2007 BISHOP LANDRY Sex: F Admit Prov: SCOOTER WOOD Date:1965 Primary Care Prov: SCOOTER WOOD CMRN: [id number] Room: [facility] SSN: [id number] IMAGING SERVICES Ordering Prov: N/A Interpretation RIGHT ANKLE 2 VIEWS 07/23/2007 History: 42-year-old woman with arthropathy Report: AP and lateral radiograph of the right ankle date07/23/2007 Comparisons: None Findings: Bone mineralization and alignment is within normallimits. Prominent plantar and posterior calcaneal spurs are seen. There is noacute fracture or dislocation. There is mild soft tissue swelling overthe lateral malleolus. There is an osseous protuberance arising fromthe lateral aspect of the lateral malleolus which is nonspecific andmay represent sequela of prior trauma. There is minimal spurringemanating from the medial malleolus. Impression: 1. Prominent plantar and posterior calcaneal spurs 2. Soft tissue swelling of the lateral malleolus. There is anosseous excrescence arising from the lateral aspect of the lateral malleoluswhich is nonspecific. This may represent the sequela of prior trauma. . Dictated by: NAM LUNA 07/23/2007 08:49 Electronically signed by: NAM LUNA 07/23/2007 09:49 Transcribed: 07/23/2007 09:39 AMK us Scooter Wood MD DIAGNOSTIC IMAGING ORDERABLES F inal Result * XR ANKLE 2 VW LEFT (07/23/2007 7:12 AM CDT) Anatomical Region Laterality Modality Ankle / Foot Other 07/23/2007 7:12 AM CDT Narrative 07/23/2007 9:49 AM CDT [address] [address] [place], [place] [address] Admit Date: 07/23/2007 BISHOP LANDRY Sex: F Admit Prov: SCOOTER WOOD Date: 1965 Primary Care Prov: SCOOTER WOOD CMRN: [id number] Room: [facility] SSN: [id number] IMAGING SERVICES Ordering Prov: N/A Accession Number: [id number] Interpretation LEFT ANKLE 2 VIEWS 07/23/2007 Clinical Indication: 42-year-old woman with arthropathy Report: AP and lateral radiographs of the left ankle dated 07/23/2007 Comparison: None Findings: Bone mineralization and alignment is within normal limits. There is no acute fracture or dislocation. Joint spaces are preserved. There are prominent plantar and posterior calcaneal spurs. Impression: 1. Prominent plantar and posterior calcaneal spurs. . Dictated by: NAM LUNA 07/23/2007 08:51 Electronically signed by: NAM LUNA 07/23/2007 09:49 Transcribed: 07/23/2007 09:40 AMK Procedure Note Provider, Historical - 07/23/2007 [address] [address] [place], [place] [address] Admit Date: 07/23/2007 BISHOP LANDRY Sex: F Admit Prov: SCOOTER WOOD Date:1965 Primary Care Prov: SCOOTER WOOD CMRN: [id number] Room: [facility] SSN: [id number] IMAGING SERVICES Ordering Prov: N/A Interpretation LEFT ANKLE 2 VIEWS 07/23/2007 Clinical Indication: 42-year-old woman with arthropathy Report: AP and lateral radiographs of the left ankle date07/23/2007 Comparison: None Findings: Bone mineralization and alignment is within normal limits.There is no acute fracture or dislocation. Joint spaces are preserved.There are prominent plantar and posterior calcaneal spurs. Impression: 1. Prominent plantar and posterior calcaneal spurs. . 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
[2024-07-06 06:53] VITALS: BP 162/74; PULSE 90; RESP 18; TEMP 36.1; O2SAT 95
[2024-07-06] MEDS: LACTATED RINGERS 1,000 ML 150 ML IV CONT (07:04)
[2024-07-06 07:05] LABS: Glucose Point of Care 136 mg/dl (65-105)
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
[2024-07-06 08:11] VITALS: BP 124/74; PULSE 78; RESP 18; O2SAT 98
[2024-07-06 08:21] VITALS: BP 133/71; PULSE 70; RESP 15; O2SAT 96
[2024-07-06 08:31] VITALS: BP 142/71; PULSE 67; RESP 18; O2SAT 100
== END 2024-07-06 08:45 | disposition home or self-care (01) ==
PROVIDERS: PCP Internal Medicine; Referring Provider Internal Medicine; Visit Provider Internal Medicine Gastroenterology
PROC: 0DJD8ZZ Inspection of Lower Intestinal Tract, Via Natural or Artificial Opening Endoscopic (ICD-10-PCS; CPT 45378; principal; 2024-07-06 08:00)
DX: Z12.11 Encounter for screening for malignant neoplasm of colon (principal); D12.3 Benign neoplasm of transverse colon; K57.30 Diverticulosis of large intestine without perforation or abscess without bleeding; K64.8 Other hemorrhoids; K64.4 Residual hemorrhoidal skin tags; F17.210 Nicotine dependence, cigarettes, uncomplicated; E66.01 Morbid (severe) obesity due to excess calories; Z68.39 Body mass index [BMI] 39.0-39.9, adult; E11.9 Type 2 diabetes mellitus without complications
CPT/HCPCS: 45385; 82948; 88305; J2704; J7120

== ENCOUNTER 2024-09-16 08:46 | Outpatient (CLI) | payer BC, SELFPAY ==
--- OUTSIDE RECORDS SUMMARY | 2024-09-16 08:56 | XMS_ITS | Referral Summary ---
Author Organization [facility] [address] Address [address] [place] [id number] Care Team Providers Care Recording Studio Internship Name Role Phone Soham Arnold MD Unavailable [phone] Jeaneth Funez MD Unavailable [phone] Walt Shetty MD Unavailable [phone] Jaime Cleaning MD Primary Care Provider [phone] Allergies Active Allergy Reactions Criticality Noted Date [...] hypertension 09/16/2023 Coronary artery disease invo lving [place] coronary artery of [place] heart without angina pectoris 09/16/2023 Morbid obesity [...] symptoms. Encouraged her to return to her bulk sealer for additional review of her facial redness [...] history of psoriasis on her elbows. Saw bulk sealer in the past who provided topical agents with resolution of skin rashes. 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 Gender Identity Not on file Sexual Orientation Not on file Last Filed Vital Signs Vital Sign Reading Time Taken Comments Blood Pressure 132/74 05/21/2024 3:24 PM SUPPLY CHAIN ENGINEER Pulse 88 05/21/2024 3:24 PM SUPPLY CHAIN ENGINEER Temperature - - Respiratory Rate - - Oxygen Saturation 99% 05/21/2024 3:24 PM SUPPLY CHAIN ENGINEER Inhaled Oxygen Concentration - - Weight 108.4 kg (239 lb) 05/21/2024 3:24 PM SUPPLY CHAIN ENGINEER Height 162.6 cm (5' 4 ) 05/21/2024 3:24 PM SUPPLY CHAIN ENGINEER Body Mass Index 41.02 05/21/2024 3:24 PM SUPPLY CHAIN ENGINEER Plan of Treatment Not on file Procedures Procedure Name Priority Date/Time Associated Diagnosis Comments HEPATITIS PANEL, ACUTE Routine 12/06/2021 11:26 AM CDT from Last 3 Months or Most Recently Relevant to Health Maintenance Results * Hepatitis panel, acute (12/06/2021 11:26 AM CDT) Hep A IgM NON-REACTI VE NON-REACT SHERINE [facility] Comment: For additional information, please refer to http://education.ZipMatch.eDreams Edusoft/faq/QHQ477 (This link is being provided for informational/ [...] a test for HCV RNA (test code 94913) is suggested. For additional information please refer to http://education.InstaMed/faq/ARB75o9 (This link is being provided for informational/ educational purposes only.) 12/06/2021 11:2 6 AM CDT 12/06/2021 11:28 AM CDT Walt Shetty MD LAB MICROBIOLOGY - GENERAL ORD ERABLES Final Result [email or web address] [address] [place] [address] from Last 3 Months or Most Recently Relevant to Health Maintenance Insurance AirClic ID AirClic ID AirClic ID Care Teams Recording Studio Internship Relationship Specialty Start Date End Date Jaime Cleaning MD [address] [facility] [address] [facility] [address] [place] [address] PCP - General Internal Medicine 11/01/21 Soham Arnold MD [address] [place] [address] [address] [place] [address] Referring Physician Cardiovascular Disease 02/03/19 Jeaneth Funez MD [address] [place] [address] Referring Physician Dermatology 03/10/19 Walt Shetty MD [address] [place] [id number] Consulting Physician Rheumatology 11/01/21
--- OUTSIDE RECORDS SUMMARY | 2024-09-16 08:56 | XMS_ITS | Encounter Summary ---
Author Organization [facility] Address [address] [place] [address] Care Team Providers Care Communication Electronic Technician Name Role Phone Jt Zamora MD Primary Care Provider [phone] Encounter Details Date Type Department Care Team (Late st Contact Info) Description 09/18/2018 Lab Requisition [facility] Care DermPath Lab [address] [facility] [place] [id number] Jeaneth Funez MD [address] [facility] [address] [place] [address] Social History Tobacco Use Types Packs/Day Years Used Date Smoking Tobacco: Every Day Cigarettes Smokeless Tobacco: Never Alcohol Use Standard Drinks/Week Comments Yes 0 (1 standard drink = 0.6 oz pur e alcohol) 2 - 3 times a week Comments Unknown Sex and Gender Information Value Date Recorded Sex Assigned at Not on file 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 Gender Identity Not on file Sexual Orientation Not on file documented as of this encounter Plan of Treatment Not on file documented as of this encounter Procedures Procedure Name Priority Date/Time Associated Diagnosis Comments DERMATOPATHOLOGY Routine 09/17/2018 12:0 0 AM CDT documented in this encounter Results * DERMATOPATHOLOGY (09/17/2018 12:00 AM CDT) Case Report Dermatopathology Report Case: [id number] Authorizing Provider: Jeaneth Funez MD Collected: 09/17/2018 12:00 AM Pathologist: Radha Lara MD Received: 09/18/2018 06:36 AM Specimen: Skin, left cheek 6:00 PM CDT DERMATOPATHOLOGY LABORATORY Final Diagnosis Specimen A. SKIN, left cheek: BENIGN VERRUCOUS KERATOSIS, INFLAMED (L82.1) 9 6:00 PM T DERMATOPATHOLOGY LABORATORY at 1800 CDT Clinical History R/O BCC hx of PSO crusted papule. 6:00 PM CDT DERMATOPATHOLOGY LABORATORY Gross Description Specimen A: Received is one formalin filled container labeled with the patient's name and designated left cheek. The specimen consists of a shave measuring [id number]. Jar 0. 6:00 PM T DERMATOPATHOLOGY LABORATORY [...] characteristic determined by the Dermatopathology Laboratory at [facility], directed by Dr. Luke Lara. These tests need not be, and therefore are not, approved by the [place] Food and Drug Administration. The tests are used for clinical purposes. Billing Codes Specimen Charges Stain Charges 72412 1 9 6:00 PM CDT DERMATOPATHOLOGY LABORATORY Embedded Images 6:00 PM CDT DERMATOPATHOLOGY LABORATORY Pathology/Cytolog y TISSUE SPECIMEN FROM SKIN / Unknown 09/17/2018 09/18/2018 6:36 AM CDT us Jeaneth Funez MD LAB - PATHOLOGY/CYTOLOGY ORD ERABLES Final Result DERMATOPATHOLOGY LABORATORY [facility] - Department of Dermatology [address] [facility], 5th Floor Lab [address] [phone] documented in this encounter Visit Diagnoses Not on filedocumented in this encounter Care Teams Communication Electronic Technician Relationship Specialty Start Date End Date Jt Zamora MD PCP - General 04/12/08 documented as of this encounter
--- OUTSIDE RECORDS SUMMARY | 2024-09-16 08:56 | XMS_ITS | Encounter Summary ---
Author Organization [facility] Address [address] [place] [address] Care Team Providers Care Professional Architect Name Role Phone Jt Zamora MD Primary Care Provider [phone] Encounter Details Date Type Department Care Team (Late st Contact Info) Description 10/10/2008 Outpatient Historical [facility] Kirby Brambila MD [address] [place] [address] [place] [address] Heartburn; Diarrhea; Flatulence, Eructation, and Gas Pain Social History Tobacco Use Types Packs/Day Years Used Date Smoking Tobacco: Never Assessed Comments Unknown Sex and Gender Information Value Date Recorded Sex Assigned at Not on file Legal Sex Female 5:32 AM SENIOR TELECOMMUNICATIONS ENGINEER Gender Identity Not on file Sexual Orientation Not on file documented as of this encounter Plan of Treatment Not on file documented as of this encounter Procedures Procedure Name Priority Date/Time Associated Diagnosis Comments PATHOLOGY Routine 10/10/2008 10:24 AM CDT POC , URINE Routine 10/10/2008 7:43 AM CDT documented in this encounter Results * PATHOLOGY (10/10/2008 10:24 AM CDT) FINAL REPORT [facility] [address] [place], [place] [address] Patient: BISHOP LANDRY : 1965 Procedure Date: 10/10/2008 Accession Date: 10/10/2008 Case No: [id number] Ordering Dr: KIRBY BRAMBILA Case types AW, BW, FW, NW and SH are performed by [facility], [place], [place] SURGICAL PATHOLOGY & NON-GYNECOLOGIC CYTOPATHOLOGY REPORT [...] 12:32 pm Microscopic: Received are slides labeled [id number], Bishop Landry. Sections of small bowel contain four fragments of small intestinal mucosa showing no significant histopathologic abnormalities. There is no significant increase in intraepithelial or lamina propria inflammation. Villous architecture appears preserved, without evidence of villous blunting. There is no evidence of active inflammation, granulomas, or foveolar metaplasia. [facility] 10.11.2008 10:12 am Staging Form: No. ELECTRONIC SIGNATURE FOR LIANA TITUS M.D.- 10/11/08 03:24 pm INTERFACE SYSTEM 10/10/2008 10:2 4 AM CDT Kirby Brambila MD PATHOLOGY/CYTOLOGY ORDERABLES Final Result INTERFACE SYSTEM Refer to clinic/hospital department * POC , URINE (10/10/2008 7:43 AM CDT) , URINE POC Negative Negative [facility] 10/10/2008 7:43 AM CDT 10/10/2008 7:43 AM CDT Kirby Brambila MD POINT OF CARE TESTING Final R esult INTERFACE SYSTEM Refer to clinic/hospital department [facility] CLIA# [id number] [address] [place] [address] documented in this encounter Visit Diagnoses Diagnosis Heartburn Diarrhea Flatulence, eructation, and gas pain documented in this encounter Care Teams Professional Architect Relationship Specialty Start Date End Date Jt Zamora MD [facility] [place] [address] PCP - General Family Practice 12/17/11 documented as of this encounter
--- OUTSIDE RECORDS SUMMARY | 2024-09-16 08:56 | XMS_ITS | Encounter Summary ---
Author Organization [facility] Address [address] [place] [address] Care Team Providers Care Store Stock Associate Name Role Phone Jt Zamora MD Primary Care Provider [phone] Encounter Details Date Type Department Care Team (Late st Contact Info) Description 04/02/2018 Lab Requisition [facility] [address] [facility] [place] [phone] Jeaneth Funez MD [address] [facility] [address] [place] [address] Social History Tobacco Use Types Packs/Day Years Used Date Smoking Tobacco: Every Day Cigarettes Smokeless Tobacco: Never Alcohol Use Standard Drinks/Week Comments Yes 0 (1 standard drink = 0.6 oz pur e alcohol) 3 to 4 times a week Comments Unknown Sex and Gender Information Value Date Recorded Sex Assigned at Not on file Legal Sex Female 5:49 PM CUPOLA TENDER Gender Identity Not on file Sexual Orientation Not on file documented as of this encounter Plan of Treatment Not on file documented as of this encounter Procedures Procedure Name Priority Date/Time Associated Diagnosis Comments DERMATOPATH TECHNICAL REPORT Routine 04/01/2018 12:00 AM CUPOLA TENDER documented in this encounter Results * DERMATOPATH TECHNICAL REPORT (04/01/2018 12:00 AM CUPOLA TENDER) Case Report Dermatopathology Report Case: [id number] Authorizing Provider: Jeaneth Funez MD Collected: 04/01/2018 12:00 AM Pathologist: Radha Lara MD Received: 04/02/2018 07:23 AM Specimen: Skin, right hand 12:18 PM [facility] DERMATOPATHOLOGY LABORATORY Addendum 1 At the request of the diagnosing physician, the technical component for PAS and Colloidal Iron was performed by [facility] Dermatopathology Laboratory. 12:18 PM [facility] DERMATOPATHOLOGY LABORATORY Addendum electronically signed by Radha Lara MD on 04/07/2018 at 1218 CUPOLA TENDER Clinical History PSO vs CTD. Rochelle scaly patches. 12:18 PM [facility] DERMATOPATHOLOGY LABORATORY Gross Description Specimen A: Received is one formalin filled container labeled with the patient's name and designated right hand. The specimen consists of a punch measuring [id number], bisected. Jar 0. [facility] Dermatopathology Laboratory performed the technical component only. 12:18 PM [facility] DERMATOPATHOLOGY LABORATORY Embedded Images 12:18 PM [facility] DERMATOPATHOLOGY LABORATORY DISCLAIMER An external and internal positive and negative controls are appropriate for the histochemical, immunohistochemical and immunofluorescence stain(s) in this case (if any), except where stated explicitly. The performance characteristics of the stain(s) cited in this report were developed and its performance characteristic determined by the Dermatopathology Laboratory at [facility]. These tests need not be, and therefore are not, approved by the [place] Food and Drug Administration. The tests are used for clinical purposes. 12:18 PM [facility] DERMATOPATHOLOGY LABORATORY at 1739 CUPOLA TENDER Pathology/Cytolog y TISSUE SPECIMEN FROM SKIN / Unknown 04/01/2018 04/02/2018 7:23 AM CUPOLA TENDER us Jeaneth Funez MD LAB - PATHOLOGY/CYTOLOGY ORD ERABLES Edited Result - Final DERMATOPATHOLOGY LABORATORY [facility] - Department of Dermatology [address] [facility], 5th Floor Lab [address] [phone] documented in this encounter Visit Diagnoses Not on filedocumented in this encounter Care Teams Store Stock Associate Relationship Specialty Start Date End Date Jt Zamora MD PCP - General 04/12/08 documented as of this encounter
--- OUTSIDE RECORDS SUMMARY | 2024-09-16 08:56 | XMS_ITS | Clinical Summary ---
Author Organization [facility] Administrative Offices Address [address] [place] [address] Care Team Providers Care Medical Imaging Specialist Name Role Phone Jt Zamora MD Primary Care Provider Social History Tobacco Use Types Packs/Day Years Used Date Smoking Tobacco: Never Assessed Comments Unknown Sex and Gender Information Value Date Recorded Sex Assigned at Not on file Legal Sex Female 5:32 AM PLASTICS HEAT WELDER Gender Identity Not on file Sexual Orientation [...] Comments DTAP/TDAP/TD VACCINES (1 - Tdap) 02/12/1983 HPV/Cotest (21-29) 02/12/1985 CERVICAL CANCER SCREENING 02/12/1994 HPV/Cotest (30-65) 02/12/1994 PAP SMEAR 02/12/1994 BREAST CANCER SCREENING 2004 COLORECTAL SCREENING [...] patient's age to complete this topic Insurance [address]/TRUE Real Time Translation PPO Care Teams Medical Imaging Specialist Relationship Specialty Start Date End Date Jt Zamora MD [address] [place] [id number] PCP - General Family Practice 12/17/11
--- OUTSIDE RECORDS SUMMARY | 2024-09-16 08:56 | XMS_ITS | Clinical Summary ---
Author Organization [facility] [address] [facility] [address] Address [address] [place] [id number] Care Team Providers Care Drip Molder Name Role Phone Soham Arnold MD Unavailable [phone] Jeaneth Funez MD Unavailable [phone] Walt Shetty MD Unavailable [phone] Jaime Cleaning MD Primary Care Provider [phone] Allergies Active Allergy Reactions Criticality Noted Date [...] hypertension 09/16/2023 Coronary artery disease invo lving [place] coronary artery of [place] heart without angina pectoris 09/16/2023 Morbid obesity [...] symptoms. 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 Saw back hoe operator in the past who provided topical agents with resolution of skin rashes. 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 Gender Identity Not on file Sexual Orientation Not on file Obstetrics History Last Filed Vital Signs Vital Sign Reading Time Taken Comments Blood Pressure 132/74 05/21/2024 3:24 PM [employer]PER[employer] Pulse 88 05/21/2024 3:24 PM SUPERVIS[employer] Temperature - - Respiratory Rate - - Oxygen Saturation 99% 05/21/2024 3:24 PM SUPERVIS[employer] Inhaled Oxygen Concentration - - Weight 108.4 kg (239 lb) 05/21/2024 3:24 PM SUPER[employer] Height 162.6 cm (5' 4 ) 05/21/2024 3:24 PM SUPERVIS[employer] Body Mass Index 41.02 05/21/2024 3:24 PM SUPERVIS[employer] Plan of Treatment Health Maintenance Due Date Last Done Comments Breast Cancer Screening-Mammogram 1965 Cervical Cancer Screening 1965 Colon Cancer Screening-Colonoscopy 1965 Depression Screening 1965 DTaP/Tdap/Td Vaccine (1 - Tdap) 02/12/1975 Hepatitis B Screening 02/12/1982 Regular Well Visit/Exam 18-64 02/12/1982 Zoster Vaccine (1 of 2) 02/12/2014 Pneumococcal vaccine <65 (2 of 2 - PPSV23) 04/03/2018 02/06/2018 Influenza Vaccine (Season Ended) 2024 02/11/2019, 01/26/2017, 01/10/2016, Additional history exists Hepatitis C Screening Completed 12/06/2021 Procedures Procedure Name Priority Date/Time Associated Diagnosis Comments HEPATITIS PANEL, ACUTE Routine 12/06/2021 11:26 AM CDT from Last 3 Months or Most Recently Relevant to Health Maintenance Results * Hepatitis panel, acute (12/06/2021 11:26 AM CDT) Hep A IgM NON-REACTI VE NON-REACT SHERINE [facility] Comment: For additional information, please refer to http://[employer].Lignol/faq/PGD554 (This link is being provided for informational/ [...] a test for HCV RNA (test code 47226) is suggested. For additional information please refer to http://[employer].Lignol/faq/BPB37j3 (This link is being provided for informational/ educational purposes only.) 12/06/2021 11:2 6 AM CDT 12/06/2021 11:28 AM CDT Walt Shetty MD LAB MICROBIOLOGY - GENERAL ORD ERABLES Final Result [facility] [address] [place] [address] from Last 3 Months or Most Recently Relevant to Health Maintenance Insurance [facility] [place] Plan / Payer ( fective 2011-Present) Name:Bishop Landry Relation to Subscriber:Spouse Name:SAGAR LANDRY Date of :1963 (Home) Address: [address] [place] [address] Payer ID:[id number] (NAIC) Type:BC OTHER Address: [address] [place] [id number] Care Teams Drip Molder Relationship Specialty Start Date End Date Jaime Cleaning MD [address] [facility] [address] [place] [address] PCP - General Internal Medicine 11/01/21 Soham Arnold MD [address] [place] [address] [address] Referring Physician Cardiovascular Disease 02/03/19 Jeaneth Funez MD [address] [place] [id number] Referring Physician Dermatology 03/10/19 Walt Shetty MD [address] [place] [address] Consulting Physician Rheumatology 11/01/21
--- OUTSIDE RECORDS SUMMARY | 2024-09-16 08:56 | XMS_ITS | Encounter Summary ---
Author Organization [employer] [facility] Address [address] [place] [address] Care Team Providers Care Hearing Care Professional Name Role Phone Jt Zamora MD Primary Care Provider [phone] Encounter Details Date Type Department Care Team (Latest Contact Info) Description 07/23/2007 Outpatient Historical HIS [facility] Scooter Del Cid MD Unspecified Arthropathy, Site Unspecified Social History Tobacco Use Types Packs/Day Years Used Date Smoking Tobacco: Never Assessed Comments Unknown Sex and Gender Information Value Date Recorded Sex Assigned at Not on file Legal Sex Female 5:32 AM [employer] Gender Identity Not on file Sexual Orientation [...] AB IGG (07/23/2007 7:47 AM CDT) Pathologist [facility] CYCLIC CITRULLINATED PEPTIDE AB IGG <20 Units [facility] Comment: REFERENCE RANGE: NEGATIVE: <20 WEAK POSITIVE: 20-39 MODERATE/STRONG POSITIVE: 40-59 STRONG POSITIVE: >59 Lab test performed by: [facility] [id number] [id number] LAURITA GARCIA MD Blood specimen (specimen) 07/23/2007 7:47 AM CDT 07/23/2007 9:21 AM CDT Scooter Wood MD CHEMISTRY ORDERABLES Final Resu lt Performing Organization Address [facility] Co de Phone Number [facility] [address] [place] [address] * ALDOLASE (07/23/2007 7:47 AM CDT) [facility] ALDOLASE 3.3 < OR = 8.1 U/L [facility] Comment: Lab test performed by: [facility] [id number] [email or web address] [phone] LAURITA GARCIA MD Blood specimen (specimen) 07/23/2007 7:47 AM CDT 07/23/2007 8:06 AM CDT Scooter Wood MD CHEMISTRY ORDERABLES Final Resu lt Performing Organization Address City/[facility] Co de Phone Number [facility] [address] [place] [address] * RHEUMATOID FACTOR (07/23/2007 7:47 AM CDT) Pathologist [facility] RHEUMATOID FACTOR <6.0 0.0 - 13.9 IU/mL [facility] Blood specimen (specimen) 07/23/2007 7:47 AM CDT 07/23/2007 8:04 AM CDT us Scooter Wood MD CHEMISTRY ORDERABLES Final Resu lt Performing Organization Address [facility] Co de Phone Number [facility] [address] [place] [address] * COMPLEMENT C4 (07/23/2007 7:47 AM CDT) COMPLEMENT C4 20 10 - 40 mg/dL [facility] Blood specimen (specimen) 07/23/2007 7:47 AM CDT 07/23/2007 8:04 AM CDT us Scooter Wood MD CHEMISTRY ORDERABLES Final Resu lt Performing Organization Address [facility] Phone Number [facility] [address] [place] [address] * COMPLEMENT C3 (07/23/2007 7:47 AM CDT) COMPLEMENT C3 158 90 - 180 mg/dL [facility] Blood specimen (specimen) 07/23/2007 7:47 AM CDT 07/23/2007 8:04 AM CDT us Scooter Wood MD CHEMISTRY ORDERABLES Final Resu lt Performing Organization Address [facility] de Phone Number [facility] [address] [place] [address] * LUZ PANEL (07/23/2007 7:47 AM CDT) LUZ SCREEN NEGATIVE NEGATIVE [facility] Comment: Lab test performed by: [employer] [id number] [phone] LAURITA GARCIA MD DNA AUTOABS DOUBLE STRANDED 4 IU/mL [facility] Comment: IU/mL INTERPRETATION ===== < OR = 4 NEGATIVE 5 - 9 INDETERMINATE > OR = 10 POSITIVE Lab test performed by: [facility] [id number] [place] [address] LAURITA GARCIA MD SCLERODERMA AB SCL 70 <1.0 NEG <1.0 NEG Index [facility] Comment: Lab test performed by: [facility] [address] [place] [phone] LAURITA GARCIA MD SJOGRENS ABS (SSB) <1.0 NEG <1.0 NEG Index [facility] Comment: Lab test performed by: [facility] [address] [place] [phone] LAURITA GARCIA MD RUSS ABS, SM/VOCAL ARTIST AB <1.0 NEG <1.0 NEG Index [facility] Comment: Lab test performed by: [facility] [address] [place] [phone] LAURITA GARCIA MD RUSS ABS, SM AB <1.0 NEG <1.0 NEG Index [facility] SJOGRENS ABS (SSA) <1.0 NEG <1.0 NEG Index [facility] Blood specimen (specimen) 07/23/2007 7:47 AM CDT 07/23/2007 8:04 AM CDT Scooter Wood MD CHEMISTRY ORDERABLES Edited [facility] [address] [place] [address] * (ABNORMAL) HLA B27 (07/23/2007 7:47 AM CDT) HLA B27 DETECTED(A ) [facility] Comment: THE HLA B27 ANTIGEN IS PRESENT IN 9% OF AND 4% OF BLACK POPULATIONS. THIS ANTIGEN IS SEEN WITH A FREQUENCY OF 90% IN PATIENTS WITH ANKYLOSING SPONDYLITIS AND A FREQUENCY OF 80% IN PATIENTS WITH REITERS DISEASE. Lab test performed by: [email or web address] [address] [phone] LAURITA GARCIA MD Blood specimen (specimen) 07/23/2007 7:47 AM CDT 07/23/2007 8:06 AM CDT us Scooter Wood MD CHEMISTRY ORDERABLES Final Resu lt Performing Organization Address [facility] Phone Number [facility] [address] [place] [address] * HEPATITIS C ANTIBODY (07/23/2007 7:47 AM CDT) HEPATITIS C AB NON-REACTI VE NON-REACT SHERINE [facility] SIGNAL TO CUT OFF 0.05 <1.00 [facility] Comment: Lab test performed by: [employer] [id number] [phone] LAURITA GARCIA MD Blood specimen (specimen) 07/23/2007 7:47 AM CDT 07/23/2007 8:04 AM CDT us Scooter Wood MD CHEMISTRY ORDERABLES Final Resu lt Performing Organization Address [facility] de Phone Number [facility] [address] [place] [address] * HEPATITIS B SURFACE AB (07/23/2007 7:47 AM CDT) HEPATITIS B SURFACE AB <5 mIU/mL [facility] Comment: PATIENT DOES NOT HAVE IMMUNITY TO HEPATITIS B VIRUS. Lab test performed by: [employer] [id number] [phone] LAURITA GARCIA MD Blood specimen (specimen) 07/23/2007 7:47 AM CDT 07/23/2007 8:06 AM CDT us Scooter Wood MD CHEMISTRY ORDERABLES Final Resu lt Performing Organization Address [facility]/ZIP Co de Phone Number [facility] [address] [place] [address] * TSH (07/23/2007 7:47 AM CDT) [facility] TSH 1.07 0.27 - 4.20 uU/mL [facility] Blood specimen (specimen) 07/23/2007 7:47 AM CDT 07/23/2007 8:04 AM CDT Scooter Wood MD CHEMISTRY ORDERABLES Final Resu lt Performing Organization Address [facility] Co de Phone Number [facility] [address] [place] [address] * (ABNORMAL) LACTATE DEHYDROGENASE (07/23/2007 7:47 AM CDT) [facility] LD (LACTATE DEHYDROGENASE) 129(L) 135 - 214 U/L [facility] Blood specimen (specimen) 07/23/2007 7:47 AM CDT 07/23/2007 8:04 AM CDT Scooter Wood MD CHEMISTRY ORDERABLES Final Resu lt Performing Organization Address [facility] Co de Phone Number [facility] [address] [place] [address] * (ABNORMAL) CBC WITH DIFFERENTIAL (07/23/2007 7:47 AM CDT) [facility] HEMOGLOBIN 15.4(H) 11.8 - 14.8 g/dL [facility] RDW 13.8 11.5 - 14.5 % [facility] WBC 9.4 4.0 - 9.8 K/uL [facility] MCH 32.4 27.2 - 32.6 pg [facility] MPV 12.1 9.3 - 12.4 fL [facility] HEMATOCRIT 45.2(H) 35.5 - 44.0 % [facility] RDW-STDEV 47.6 37.1 - 48.7 fL [facility] RBC 4.75 3.90 - 4.90 M/uL [facility] MCHC 34.1 31.5 - 35.5 % [facility] MCV 95.2 82.0 - 99.0 fL [facility] PLATELETS 215 140 - 350 K/uL [facility] EOSINOPHILS 2 0 - 7 % [facility] EOSINOPHIL ABSOLUTE 0.22 0.00 - 0.70 K/uL [facility] LYMPHOCYTES 23 16 - 45 % [facility] LYMPHOCYTE ABSOLUTE 2.15 0.70 - 4.50 K/uL [facility] BASOPHILS 0 0 - 2 % [facility] BASOPHILS ABSOLUTE 0.03 0.00 - 0.20 K/uL [facility] MONOCYTES 4 3 - 13 % [facility] MONOCYTE ABSOLUTE 0.42 0.10 - 1.30 K/uL [facility] NEUTROPHILS 70 45 - 70 % [facility] NEUTROPHIL ABSOLUTE 6.62 1.90 - 7.00 K/uL [facility] Blood specimen (specimen) 07/23/2007 7:47 AM CDT 07/23/2007 8:29 AM CDT us Scooter Wood MD HEMATOLOGY ORDERABLES Edited INTERFACE SYSTEM Refer to clinic/hospital department [facility] [address] [place] [address] * CK (07/23/2007 7:47 AM CDT) CK 50 10 - 145 U/L [facility] Blood specimen (specimen) 07/23/2007 7:47 AM CDT 07/23/2007 8:04 AM CDT us Scooter Wood MD CHEMISTRY ORDERABLES Final Resu lt [facility] [address] [place] [address] * (ABNORMAL) COMPREHENSIVE METABOLIC PANEL (07/23/2007 7:47 AM CDT) CREATININE 0.52 0.51 - 0.95 mg/dL [facility] ALT 17 0 - 31 U/L [facility] SODIUM 135 135 - 145 mmol/L [facility] ALKALINE PHOSPHATASE 50 35 - 104 U/L [facility] CO2 23 22 - 30 mmol/L [facility] BILIRUBIN TOTAL 0.3 0.2 - 1.0 mg/dL [facility] POTASSIUM 4.1 3.5 - 4.9 mmol/L [facility] TOTAL PROTEIN 7.7 6.3 - 8.6 g/dL [facility] GLUCOSE 110(H) 65 - 99 mg/dL [facility] AST 17 12 - 32 U/L [facility] BUN 13 6 - 20 mg/dL [facility] CALCIUM 8.9 8.4 - 10.2 mg/dL [facility] ALBUMIN 4.4 3.4 - 4.8 g/dL [facility] CHLORIDE 102 96 - 108 mmol/L [facility] GFR, >60 >=60 mL/min/1. 7 sq meter [facility] GFR >60 >=60 mL/min/1. 7 sq meter [facility] Comment: Estimated GFR rate interpretative information for both Americans and non- Americans is available on the [facility] Intranet at: [email or web address] Select: Lab Policies and Procedures Select: Reference Ranges - GFR Blood specimen (specimen) 07/23/2007 7:47 AM CDT 07/23/2007 8:04 AM CDT us Scooter Wood MD CHEMISTRY ORDERABLES Edited Performing Organization Address [facility] de Phone Number [facility] [address] [place] [address] * C-REACTIVE PROTEIN (07/23/2007 7:47 AM CDT) Pathologist [facility] CRP 0.3 0.0 - 0.8 mg/dL [facility] Blood specimen (specimen) 07/23/2007 7:47 AM CDT 07/23/2007 8:04 AM CDT us Scooter Wood MD CHEMISTRY ORDERABLES Final Resu lt Performing Organization Address [facility] de Phone Number [facility] [address] [place] [address] * SEDIMENTATION RATE (07/23/2007 7:47 AM CDT) Pathologist [facility] ESR (SEDIMENTATION RATE) 6 0 - 20 mm/hr [facility] Blood specimen (specimen) 07/23/2007 7:47 AM CDT 07/23/2007 8:29 AM CDT us Scooter Wood MD HEMATOLOGY ORDERABLES Final Res ult Performing Organization Address [facility] de Phone Number [facility] [address] [place] [address] * URINALYSIS (07/23/2007 7:47 AM CDT) CLARITY UA Clear Clear [facility] BILIRUBIN UA Negative Negative [facility] PROTEIN UA Negative Negative [facility] LEUKOCYTE ESTERASE UA Negative Negative [facility] SPECIFIC GRAVITY UA 1.009 1.001 - 1.035 [facility] GLUCOSE UA Negative Negative [facility] BLOOD UA Negative Negative [facility] COLOR UA Pale Yellow [facility] NITRITE UA Negative Negative [facility] UROBILINOGEN UA <1 <=1 mg/dL [facility] PH UA 5.0 5.0 - 8.0 [facility] KETONES UA Negative Negative [facility] 07/23/2007 7:47 AM CDT 07/23/2007 8:32 AM CDT Scooter Wood MD URINE ORDERABLES Final Result [facility] [address] [place] [address] * XR WRIST 2 VW RIGHT (07/23/2007 7:12 AM CDT) Anatomical Region Laterality Modality Wrist / Hand Other 07/23/2007 7:12 AM CDT Narrative 07/23/2007 9:39 AM CDT [facility] [address] [place], [place] [address] Admit Date: 07/23/2007 BISHOP LANDRY Sex: F Admit Prov: KARELUMUDonya Leung Date: 1965 Primary Care Prov: KARELUMUDonya Leung CMRN: [id number] Room: SY[facility]ONE SSN: [id number] IMAGING SERVICES Ordering Prov: N/A Accession Number: [id number] Interpretation RIGHT WRIST TWO VIEWS 07/23/2007 Clinical [...] AMK Procedure Note Provider, Historical - 07/23/[address] [address] Admit Date: 07/23/2007 BISHOP LANDRY Sex: F Admit Prov: KARELSCOOTER Madhu Date:1965 Primary Care Prov: KARELUMUDonya Leung CMRN: [id number] Room: [facility] SSN: [address] [place] [place] [address] IMAGING SERVICES Ordering Prov: N/A Interpretation RIGHT [...] AM CDT Narrative 07/23/2007 9:38 AM CDT [address] [address] [place], [place] [address] Admit Date: 07/23/2007 BISHOP LANDRY Sex: F Admit Prov: SCOOTER WOOD Date: 1965 Primary Care Prov: SCOOTER WOOD CMRN: [id number] Room: [facility]: [id number] IMAGING SERVICES Ordering Prov: N/A Accession Number: [id number] Interpretation LEFT WRIST 2 VIEWS 07/23/2007 History: [...] AMK Procedure Note Provider, Historical - 07/23/2007 [address] [place], [place] [address] Admit Date: 07/23/2007 BISHOP LANDRY Sex: F Admit Prov: SCOOTER WOOD Date:1965 Primary Care Prov: SCOOTER WOOD CMRN: [id number] Room: CHERELLENakul N: [id number] IMAGING SERVICES Ordering Prov: N/A Interpretation LEFT [...] AM CDT Narrative 07/23/2007 9:38 AM CDT [address] [address] Admit Date: 07/23/2007 LANDRY BISHOP Sex: F Admit Prov: SCOOTER WOOD Date: 1965 Primary Care Prov: SCOOTER WOOD CMRN: [id number] Room: [facility] SSN: [id number] IMAGING SERVICES Ordering Prov: N/A Accession Number: [id number] Interpretation RIGHT HAND TWO VIEWS 07/23/2007 Clinical [...] AMK Procedure Note Provider, Historical - 07/23/[address] [place], [place] [address] Admit Date: 07/23/2007 BISHOP LANDRY Sex: F Admit Prov: SCOOTER WOOD Date:1965 Primary Care Prov: SCOOTER WOOD CMRN: [id number] Room: [facility] SSN: [address] [place] [address] IMAGING SERVICES Ordering Prov: N/A Interpretation RIGHT [...] AM CDT Narrative 07/23/2007 9:39 AM CDT [address] [address] [place], [place] [address] Admit Date: 07/23/2007 BISHOP LANDRY Sex: F Admit Prov: SCOOTER WOOD Date: 1965 Primary Care Prov: SCOOTER WOOD CMRN: [id number] Room: [facility] SSN: [address] [place] [address] IMAGING SERVICES Ordering Prov: N/A Accession Number: [id number] Interpretation LEFT HAND TWO VIEWS 07/23/2007 Clinical [...] AMK Procedure Note Provider, Historical - 07/23/2007 [facility] [address], [place] [address] Admit Date: 07/23/2007 BISHOP LANDRY Sex: F Admit Prov: SCOOTER WOOD Date:1965 Primary Care Prov: SCOOTER WOOD CMRN: [id number] Room: [facility] SSN: [id number] IMAGING SERVICES Ordering Prov: N/A Interpretation LEFT [...] AM CDT Narrative 07/23/2007 9:49 AM CDT [address] [address] Admit Date: 07/23/2007 BISHOP LANDRY Sex: F Admit Prov: SCOOTER WOOD Date: 1965 Primary Care Prov: SCOOTER WOOD CMRN: [id number] [facility]: [id number] IMAGING SERVICES Ordering Prov: N/A Accession Number: [id number] Interpretation RIGHT FOOT 2 VIEWS 07/23/2007 History: [...] AMK Procedure Note Provider, Historical - 07/23/[address] [address] Admit Date: 07/23/2007 BISHOP LANDRY Sex: F Admit Prov: SCOOTER WOOD Date:1965 Primary Care Prov: SCOOTER WOOD CMRN: [id number] [facility] N: [id number] IMAGING SERVICES Ordering Prov: N/A Interpretation RIGHT [...] AM CDT Narrative 07/23/2007 9:49 AM CDT [address] [place] [address] [place], [place] [address] Admit Date: 07/23/2007 BISHOP LANDRY Sex: F Admit Prov: SCOOTER WOOD Date: 1965 Primary Care Prov: SCOOTER WOOD CMRN: [id number] Room: [facility] SSN: [id number] IMAGING SERVICES Ordering Prov: N/A Accession Number: [id number] Interpretation LEFT FOOT 2 VIEWS 07/23/2007 Clinical [...] AMK Procedure Note Provider, Historical - 07/23/2007 [address] [address] [place], [place] [address] Admit Date: 07/23/2007 BISHOP LANDRY Sex: F Admit Prov: SCOOTER WOOD Date:1965 Primary Care Prov: SCOOTER WOOD CMRN: [id number] Room: [facility] SSN: [id number] IMAGING SERVICES Ordering Prov: N/A Interpretation LEFT [...] AM CDT Narrative 07/23/2007 9:49 AM CDT [address] [address] Admit Date: 07/23/2007 BISHOP LANDRY Sex: F Admit Prov: SCOOTER WOOD Date: 1965 Primary Care Prov: SCOOTER WOOD CMRN: [id number] [facility] SSN: [id number] IMAGING SERVICES Ordering Prov: N/A Accession Number: [id number] Interpretation RIGHT ANKLE 2 VIEWS 07/23/2007 History: [...] AMK Procedure Note Provider, Historical - 07/23/2007 [facility] [address] [place], [place] [address] Admit Date: 07/23/2007 BISHOP LANDRY Sex: F Admit Prov: SCOOTER WOOD Date:1965 Primary Care Prov: SCOOTER WOOD CMRN: [id number] Room: [facility] SSN: [id number] IMAGING SERVICES Ordering Prov: N/A Interpretation RIGHT [...] AM CDT Narrative 07/23/2007 9:49 AM CDT [address] [place] [address] [place], [place] [address] Admit Date: 07/23/2007 BISHOP LANDRY Sex: F Admit Prov: SCOOTER WOOD Date: 1965 Primary Care Prov: SCOOTER WOOD CMRN: [id number] Room: [facility] SSN: [id number] IMAGING SERVICES Ordering Prov: N/A Accession Number: [id number] Interpretation LEFT ANKLE 2 VIEWS 07/23/2007 Clinical [...] AMK Procedure Note Provider, Historical - 07/23/2007 [address] [address] [place], [place] [address] Admit Date: 07/23/2007 BISHOP LANDRY Sex: F Admit Prov: SCOOTER WOOD Date:1965 Primary Care Prov: SCOOTER WOOD CMRN: [id number] Room: [facility] SSN: [id number] IMAGING SERVICES Ordering Prov: N/A Interpretation LEFT [...] unspecified documented in this encounter Care Teams Hearing Care Professional Relationship Specialty Start Date End Date Jt Zamora MD [address] [place] [phone] PCP - General Family Practice 12/17/11 documented as of this encounter
--- OUTSIDE RECORDS SUMMARY | 2024-09-16 08:56 | XMS_ITS | Continuity of Care Document ---
Author Organization [facility] Address [address] [place] [address] [address] [place] [address] Phone Care Team Providers Care Chargemaster Analyst Name Role Phone Mehnaz Velazquez Unavailable Unavailable Advance Directives Directive Yes / No Effective Date File Name No Information Encounters Encounter Description Practice Location Reason(s) For Visit Diagnoses Date Provider Providers Copied on Encounter [facility], [address] [place] [address] [address], [place], [place], [id number], [place] tel:[phone] [facility] No Information Mar-0 8-200 5 Caroline Darby. [address] , [address], [place], [address], [place]. tel:[phone] Family History Family Member Type Diagnosis Age [...]
--- OUTSIDE RECORDS SUMMARY | 2024-09-16 08:56 | XMS_ITS | Patient Health Record ---
Author Organization [facility] Address [address] [place] [address] Care Team Providers Care Financial Sales Advisor Name Role Phone Jt Zamora MD Primary Care Provider Kirby Jeronimo Unavailable [phone] Soham Arnold MD Unavailable Unavailable Allergies Allergen [...] Problem Status W/U Status Risk Notes Problem [id number] Abnormal MRI of abdomen (R93.5) Active confirmed Plan Of Treatment Pending Test Test Name Order Date Initiate SIBO 08/08/2016 MRI Abdomen with Contrast 10/06/2018 Insurance Providers Payer Name Payer Address Payer Phone Subscriber Number Group Number Insured Name Patient Relationship to Insured Coverage Start Date Coverage End Date [employer] PPO E2 [address] [place] [address] [id number] Sagar Evans Spouse - patient is the [...]
--- OUTSIDE RECORDS SUMMARY | 2024-09-16 08:56 | XMS_ITS | Clinical Summary ---
Author Organization [facility] Address [address] [place] [address] Care Team Providers Care Blow Torch Operator Name Role Phone Jt Zamora MD Primary Care Provider Source Comments [facility],non-owned Affiliates and Associated Physician Practices is amultiple site organization consisting of ambulatory clinics and hospital sitesin [place], [place], [place] and [place]. This disclosure is being madepursuant to the Care Everywhere program and may not contain all information available regarding this patient. Last updated 18.[facility] Allergies Active Allergy Reactions Criticality Noted Date Comments Cefuroxime Skin Reactions Medium 01/28/2013 Contrast-Iodinated Agents For Ct/Other Rash Medium 03/24/2018 Levaquin Skin Reactions Medium 01/28/2013 Medications * Be aware that medications may not be up to date on this document. Alwaysverify current medications with the patient. cyanocobalamin (VITAMIN B-12) 1000 MCG tablet Take 1,000 mcg by mouth once daily Active Vitamin D, Ergocalciferol , 2000 UNITS CAPS Active aspirin (ASPIRIN) 81 MG tablet Take 81 mg by mouth once daily Active jjhzd-3-corv ethyl esters (LOVAZA) 1 G capsule Take 1 capsule by mouth once daily 8 Active metoprolol succinate XL 24hr (TOPROL XL) 25 MG tablet Take 1 tablet by mouth once daily 8 Active clopidogrel (PLAVIX) 75 MG tablet Take 1 tablet by mouth once daily 8 Active famotidine (PEPCID) 40 MG tablet Take 40 mg by mouth once daily 8 Active fexofenadine (AUSTIN ALLERGY) 180 MG tablet Take 180 mg by mouth once daily Active triamterene-hy droCHLOROthiaz tonny (DYAZIDE) 37.5-25 MG capsule Take 1 capsule by mouth once daily as needed 8 Active traMADol (ULTRAM) 50 MG tablet Take 50 mg by mouth every 6 hours as needed for Pain Active Evolocumab (REPATHA SC) Inject subcutaneously every 14 days Active VASCEPA 1 G capsule 9 Active buPROPion XL 24hr (WELLBUTRIN-XL ) 150 MG tablet 9 Active KLOR-CON M10 10 MEQ tablet 9 Active tacrolimus (PROTOPIC) 0.1 % ointment 9 Active Active Problems Problem Noted Date Diagnosed [...] on file Legal Sex Female 5:49 PM STATION HELPER Gender Identity Not on file Sexual Orientation Not on file Last Filed Vital Signs Vital Sign Reading Time Taken Comments Blood Pressure 118/59 05/26/2018 10:57 AM STATION HELPER Pulse 83 05/26/2018 10:57 AM STATION HELPER Temperature 36.5 C (97.7 F) 05/26/2018 10:57 AM STATION HELPER Respiratory Rate 20 04/16/2018 2:00 PM STATION HELPER Oxygen Saturation 95% 04/16/2018 2:00 PM STATION HELPER Inhaled Oxygen Concentration - - Weight 109.4 kg (241 lb 1.6 oz) 019 10:57 AM STATION HELPER Height 162.6 cm (5' 4 ) 05/26/2018 10:5 7 AM STATION HELPER Body Mass Index 41.38 05/26/2018 10:57 AM STATION HELPER Plan of Treatment Health Maintenance Due Date [...] 50+ (1 of 2 - PCV) 02/12/1983 PAP with HPV 02/12/1994 ZOSTER VACCINE (1 of 2) 02/12/2014 SCREENING FOR DIABETES 03/25/2021 8, 01/28/2013 COVID-19 VACCINE (1 - 2023-2 5 season) 2023 Respiratory Syncytial Virus (RSV) Vaccine Pt: or over 60 yrs (1 - Risk 60-74 years 1-dose series) 2024 DEPRESSION SCREENING 04/28/2024 INFLUENZA VACCINE (Season Ended) 2024 HEPATITIS C SCREENING Completed 01/28/2013 HEPATITIS B VACCINE Aged Out No longe r eligible based on patient's age to complete this topic HIB VACCINE Aged Out No longer eligi ble based on patient's age to complete this topic HPV VACCINE Aged Out No longer eligi ble based on patient's age to complete this topic MENINGOCOCCAL (Group B) VACCINE SHARED DECISION-MAKING Aged Out No longer eligible based on patient's age to complete this topic MENINGOCOCCAL GROUPS A/C/Y/W VACCINE Aged Out No longer eligible b ased on patient's age to complete this topic Procedures Procedure Name Priority Date/Time Associated Diagnosis Comments COMPREHENSIVE METABOLIC PANEL Routine 03/25/2018 8:58 AM STATION HELPER Elevated liver enzymes HEPATITIS C ANTIBODY Routine 01/28/2013 10:30 AM CDT from Last 3 Months or Most Recently Relevant to Health Maintenance Results * (ABNORMAL) COMPREHENSIVE METABOLIC PANEL (03/25/2018 8:58 AM STATION HELPER) Glucose 112(H) 65 - 99 mg/dL [facility] [...] approximately 13% higher for people identified as -Egyptian. eGFR by MDRD 110 > OR = [...] 29 U/L [facility] Comment: Test Performed at: [facility] [id number] [place] [id number] LAURITA RAMIREZ DO,MPH Blood BLOOD SPECIMEN / Unknown 03/25/2018 8:58 AM STATION HELPER 03/25/2018 8:59 AM STATION HELPER us Darwin Mackenzie MD LAB - CHEMISTRY ORDERABLES Yumiko christian Result [facility] [id number] [place] [address] * HEPATITIS C ANTIBODY (01/28/2013 10:30 AM CDT) Pathologist [facility] Hepatitis C Antibody NON-REACTI VE NON-REACT [facility]INE [facility] ([facility]) Signal/Cutoff 0.03 <1.00 [facility] ([facility]) Comment: Test Performed at: [facility] [id number] [place] [address] LAURITA RAMIREZ DO,MPH 01/28/2013 10:3 0 AM CDT 01/28/2013 10:31 AM CDT us [place] Caraballo MD LAB - CHEMISTRY OR DERABLES Edited Result - Final [facility] ([facility]) [id number] from Last 3 Months or Most Recently Relevant to Health Maintenance [place] [address] [place] [address] [facility] NONA Care Teams Blow Torch Operator Relationship Specialty Start Date End Date Jt Zamora MD PCP - General 04/12/08
--- NOTE | 2024-09-16 09:06 | ECG_ITS ---
Test Date: 2024-09-16 09:17:06 Measurements Intervals [place] Rate: 75 P: 51 KS: 196 QRS: 35 QRSD: 99 T: 44 QT: 380 QTc: 426 Interpretive Statements SINUS RHYTHM WARNING: DATA QUALITY MAY AFFECT INTERPRETATION No previous ECG available for comparison Electronically Signed On 09-16-2024 14:08:41 CDT by Kennedy Archer M.D.
[2024-09-16 10:34] LABS: Anion Gap 9 mmol/L (4-12); Blood Urea Nitrogen 20 mg/dL (7-17); Calcium 9.5 mg/dL (8.4-10.2); Carbon Dioxide 27 mmol/L (22-30); Chloride 103 mmol/L (98-107); Estimated Glomerular Filt Rate > 60; Glucose 126 mg/dL (65-110); Potassium 4.2 mmol/L (3.4-5.0); Sodium 139 mmol/L (137-145)
== END 2024-09-16 08:47 | disposition home or self-care (01) ==
LOC: ANHSURGERY 08:53
PROVIDERS: Anesthesiology; PCP Internal Medicine; Visit Provider Surgery
DX: Z01.818 Encounter for other preprocedural examination (principal); E78.5 Hyperlipidemia, unspecified; E11.9 Type 2 diabetes mellitus without complications; I25.10 Atherosclerotic heart disease of native coronary artery without angina pectoris; F17.200 Nicotine dependence, unspecified, uncomplicated
CPT/HCPCS: 36415; 80048; 93005

== ENCOUNTER 2024-09-24 00:56 | Day surgery (SDC) | payer BC, SELFPAY ==
[2024-09-15 13:24] VITALS: BMI 41.0
--- NOTE | 2024-09-15 13:43 | PC.NURSE ---
Report to the Outpatient Waiting Room, entrance under the green pavilion located off [facility], at time ___0830am____ on date ___09/24/24____. Planned Procedure Time: __1030am .? Time changes happen often and if your time is changed the preop area will call you the afternoon before. - You and your visitor will be asked to self-screen and do not enter if you have any COVID symptoms. Please call surgeon if you need to reschedule. - A mask is optional within the hospital at this time. Patients may have clear liquids (water, carbonated beverages, clear teas, apple juice) until 3 hours prior to surgery with a maximum of 20 ounces. - No food from midnight until time of surgery and no smoking, or chewing tobacco (or any form of nicotine). No chewing gum, candy or mints. (0730am) - Take only the following medications with a SIP of water on the morning of surgery: ____Duloxetine, Metoprolol, and Tylenol if needed DO NOT STOP ANY OF YOUR OTHER PRESCRIPTION MEDICATIONS PRIOR TO SURGERY EXCEPT THE FOLLOWING Hold all vitamins and supplements for 3 days per anesthesiologist. Date to take last dose 09/20/24 Medications to discontinue per physician None Date to take last dose None Please no make-up, nail mohawk, hairspray, perfume, deodorant, or body powder the day of surgery.? No jewelry (including any body piercings) or valuables the day of surgery, leave them at home.? Please take a shower or bath the night before, or the morning of, surgery with an antibacterial soap.? Wear comfortable, loose fitting clothing.? - Jewelry must be removed prior to entering the operating room.? Rings and piercings that are not removed may be cut off. - The hospital will not accept responsibility for valuables.? - Please leave all valuables, including medications, at home the day of surgery. If you are going home after surgery, a licensed starting gate driver must drive you home.? - NO public transportation without another adult if you receive anesthesia. - We recommend that an adult stay with you for 24 hours following discharge. - We also recommend that you do not drive, make important decision, drink alcoholic beverages, or take any drugs that were not prescribed by your health care provider for at least 24 hours after your discharge time. Follow any additional instructions given to you from your surgeon. Telephone instructions given to __Patient and asked if any additional questions and then verbalized understanding. Patient advised to call surgeon office or pre surgery nurse liaison [phone] if any additional questions.
[2024-09-24] VITALS (10 sets, daily range): BP systolic 118–152; BP diastolic 60–87; PULSE 68–83; RESP 13–20; TEMP 36.2–36.3; O2SAT 93–100
--- OUTSIDE RECORDS SUMMARY | 2024-09-24 00:58 | XMS_ITS | Encounter Summary ---
Author Organization [facility] Address [address] [place] [address] Care Team Providers Care Gis Engineer Name Role Phone Jt Zamora MD Primary Care Provider [phone] Encounter Details Date Type Department Care Team (Late st Contact Info) Description 04/02/2018 Lab Requisition [facility] [address] [facility], [place] [id number] Jeaneth Funez MD [address] [facility] [address] [place] [address] Social History Tobacco Use Types Packs/Day Years Used Date Smoking Tobacco: Every Day Cigarettes Smokeless Tobacco: Never Alcohol Use Standard Drinks/Week Comments Yes 0 (1 standard drink = 0.6 oz pur e alcohol) 3 to 4 times a week Comments Unknown Sex and Gender Information Value Date Recorded Sex Assigned at Not on file Legal Sex Female 5:49 PM TEAM LEADER Gender Identity Not on file Sexual Orientation Not on file documented as of this encounter Plan of Treatment Not on file documented as of this encounter Procedures Procedure Name Priority Date/Time Associated Diagnosis Comments DERMATOPATH TECHNICAL REPORT Routine 04/01/2018 12:00 AM TEAM LEADER documented in this encounter Results * DERMATOPATH TECHNICAL REPORT (04/01/2018 12:00 AM TEAM LEADER) Case Report Dermatopathology Report Case: [id number] Authorizing Provider: Jeaneth Funez MD Collected: 04/01/2018 12:00 AM Pathologist: Radha Lara MD Received: 04/02/2018 07:23 AM Specimen: Skin, right hand 12:18 PM [facility] Addendum 1 At the request of the diagnosing physician, the technical component for PAS and Colloidal Iron was performed by [facility] Dermatopathology Laboratory. 12:18 PM [facility] Addendum electronically signed by Radha Lara MD on 04/07/2018 at 1218 TEAM LEADER Clinical History PSO vs CTD. [place] scaly patches. 12:18 PM [facility] Gross Description Specimen A: Received is one formalin filled container labeled with the patient's name and designated right hand. The specimen consists of a punch measuring [id number], bisected. Jar 0. [facility]ermatopathology [facility] performed the technical component only. 12:18 PM [facility] Embedded Images 12:18 PM [facility] DISCLAIMER An external and internal positive and negative controls are appropriate for the histochemical, immunohistochemical and immunofluorescence stain(s) in this case (if any), except where stated explicitly. The performance characteristics of the stain(s) cited in this report were developed and its performance characteristic determined by the Dermatopathology Laboratory at [facility]. These tests need not be, and therefore are not, approved by the [place] Food and Drug Administration. The tests are used for clinical purposes. 12:18 PM [facility] at 1739 TEAM LEADER Pathology/Cytolog y TISSUE SPECIMEN FROM SKIN / Unknown 04/01/2018 04/02/2018 7:23 AM TEAM LEADER us Jeaneth Funez MD LAB - PATHOLOGY/CYTOLOGY ORD ERABLES Edited Result - Final DERMATOPATHOLOGY LABORATORY [facility] - Department of Dermatology [address] [facility], 5th Floor Lab [address] [phone] documented in this encounter Visit Diagnoses Not on filedocumented in this encounter Care Teams Gis Engineer Relationship Specialty Start Date End Date Jt Zamora MD PCP - General 04/12/08 documented as of this encounter
--- OUTSIDE RECORDS SUMMARY | 2024-09-24 00:58 | XMS_ITS | Encounter Summary ---
Author Organization [facility] Address [address] [facility] [place] [address] Care Team Providers Care Hris Manager Name Role Phone Jt Zamora MD Primary Care Provider [phone] Encounter Details Date Type Department Care Team (Late st Contact Info) Description 09/18/2018 Lab Requisition [facility] [address] [facility] [place] [phone] Jeaneth Funez MD [address] [facility] [address] [place] [address] Social History Tobacco Use Types Packs/Day Years Used Date Smoking Tobacco: Every Day Cigarettes Smokeless Tobacco: Never Alcohol Use Standard Drinks/Week Comments Yes 0 (1 standard drink = 0.6 oz pur e alcohol) 2 - 3 times a week Comments Unknown Sex and Gender Information Value Date Recorded Sex Assigned at Not on file Legal Sex Female 5:49 PM DIRECTOR OF HEALTH CARE MARKETING Gender Identity Not on file Sexual Orientation Not on file documented as of this encounter Plan of Treatment Not on file documented as of this encounter Procedures Procedure Name Priority Date/Time Associated Diagnosis Comments DERMATOPATHOLOGY Routine 09/17/2018 12:0 0 AM CDT documented in this encounter Results * DERMATOPATHOLOGY (09/17/2018 12:00 AM CDT) Case Report Dermatopathology Report Case: [id number] Authorizing Provider: Jeaneth Funez MD Collected: 09/17/2018 [...] The specimen consists of a shave measuring [id number]. Jar 0. 6:00 PM T DERMATOPATHOLOGY LABORATORY [...] characteristic determined by the Dermatopathology Laboratory at [facility], directed by Dr. Luke Lara. These tests need not be, and therefore are not, approved by the [place] Food and Drug Administration. The tests are used for clinical purposes. Billing Codes Specimen Charges Stain Charges 17762 1 9 6:00 PM CDT DERMATOPATHOLOGY LABORATORY Embedded Images 6:00 PM CDT DERMATOPATHOLOGY LABORATORY Pathology/Cytolog y TISSUE SPECIMEN FROM SKIN / Unknown 09/17/2018 09/18/2018 6:36 AM CDT us Jeaneth Funez MD LAB - PATHOLOGY/CYTOLOGY ORD ERABLES Final Result DERMATOPATHOLOGY LABORATORY [facility] - Department of Dermatology [address] [facility], 5th Floor Lab [address] [phone] documented in this encounter Visit Diagnoses Not on filedocumented in this encounter Care Teams Hris Manager Relationship Specialty Start Date End Date Jt Zamora MD PCP - General 04/12/08 documented as of this encounter
--- OUTSIDE RECORDS SUMMARY | 2024-09-24 00:58 | XMS_ITS | Encounter Summary ---
Author Organization [employer] [facility] Address [address] [place] [address] Care Team Providers Care 6Th Grade Teacher Name Role Phone Jt Zamora MD Primary Care Provider [phone] Encounter Details Date Type Department Care Team (Latest Contact Info) Description 07/23/2007 Outpatient Historical [facility] Scooter Del Cid MD Unspecified Arthropathy, Site Unspecified Social History Tobacco Use Types Packs/Day Years Used Date Smoking Tobacco: Never Assessed Comments Unknown Sex and Gender Information Value Date Recorded Sex Assigned at Not on file Legal Sex Female 5:32 AM SIZE CHANGER Gender Identity Not on file Sexual Orientation [...] AB IGG (07/23/2007 7:47 AM CDT) Pathologist [facility] CYCLIC CITRULLINATED PEPTIDE AB IGG <20 Units [facility] Comment: REFERENCE RANGE: NEGATIVE: <20 WEAK POSITIVE: 20-39 MODERATE/STRONG POSITIVE: 40-59 STRONG POSITIVE: >59 Lab test performed by: [id number] [phone] LAURITA GARCIA MD Blood specimen (specimen) 07/23/2007 7:47 AM CDT 07/23/2007 9:21 AM CDT Scooter Wood MD CHEMISTRY ORDERABLES Final Resu lt Performing Organization Address [facility] Co de Phone Number [facility] [address] [place] [address] * ALDOLASE (07/23/2007 7:47 AM CDT) [facility] ALDOLASE 3.3 < OR = 8.1 U/L [facility] Comment: Lab test performed by: [employer] [id number] [address] [employer] [phone] LAURITA GARCIA MD Blood specimen (specimen) 07/23/2007 7:47 AM CDT 07/23/2007 8:06 AM CDT Scooter Wood MD CHEMISTRY ORDERABLES Final Resu lt Performing Organization Address City/[facility] Co de Phone Number [facility] [address] [place] [address] * RHEUMATOID FACTOR (07/23/2007 7:47 AM CDT) Pathologist [facility] RHEUMATOID FACTOR <6.0 0.0 - 13.9 IU/mL [facility] Blood specimen (specimen) 07/23/2007 7:47 AM CDT 07/23/2007 8:04 AM CDT us Scooter Wood MD CHEMISTRY ORDERABLES Final Resu lt Performing Organization Address [facility] Co de Phone Number [facility] [address] [place] [address] * COMPLEMENT C4 (07/23/2007 7:47 AM CDT) COMPLEMENT C4 20 10 - 40 mg/dL [facility] Blood specimen (specimen) 07/23/2007 7:47 AM CDT 07/23/2007 8:04 AM CDT us Scooter Wood MD CHEMISTRY ORDERABLES Final Resu lt Performing Organization Address [facility] Phone Number [facility] [address] [place] [address] * COMPLEMENT C3 (07/23/2007 7:47 AM CDT) COMPLEMENT C3 158 90 - 180 mg/dL [facility] Blood specimen (specimen) 07/23/2007 7:47 AM CDT 07/23/2007 8:04 AM CDT us Scooter Wood MD CHEMISTRY ORDERABLES Final Resu lt Performing Organization Address [facility] de Phone Number [facility] [address] [place] [address] * LUZ PANEL (07/23/2007 7:47 AM CDT) LUZ SCREEN NEGATIVE NEGATIVE [facility] Comment: Lab test performed by: [employer] [id number] [phone] LAURITA GARCIA MD DNA AUTOABS DOUBLE STRANDED 4 IU/mL [facility] Comment: IU/mL INTERPRETATION ===== < OR = 4 NEGATIVE 5 - 9 INDETERMINATE > OR = 10 POSITIVE Lab test performed by: [employer] [id number] [place] [address] LAURITA GARCIA MD SCLERODERMA AB SCL 70 <1.0 NEG <1.0 NEG Index [facility] Comment: Lab test performed by: [employer] [address] [place] [phone] LAURITA GARCIA MD SJOGRENS ABS (SSB) <1.0 NEG <1.0 NEG Index [facility] Comment: Lab test performed by: [employer] [address] [place] [phone] LAURITA GARCIA MD RUSS ABS, SM/PHARMACY BENEFIT MANAGER AB <1.0 NEG <1.0 NEG Index [facility] Comment: Lab test performed by: [employer] [address] [place] [phone] LAURITA GARCIA MD RUSS ABS, SM AB <1.0 NEG <1.0 NEG Index [facility] SJOGRENS ABS (SSA) <1.0 NEG <1.0 NEG Index [facility] Blood specimen (specimen) 07/23/2007 7:47 AM CDT 07/23/2007 8:04 AM CDT Scooter Wood MD CHEMISTRY ORDERABLES Edited [facility] [address] [place] [address] * (ABNORMAL) HLA B27 (07/23/2007 7:47 AM CDT) HLA B27 DETECTED(A ) [facility] Comment: THE HLA B27 ANTIGEN IS PRESENT IN 9% OF AND 4% OF BLACK POPULATIONS. THIS ANTIGEN IS SEEN WITH A FREQUENCY OF 90% IN PATIENTS WITH ANKYLOSING SPONDYLITIS AND A FREQUENCY OF 80% IN PATIENTS WITH REITERS DISEASE. Lab test performed by: [employer] [phone] LAURITA GARCIA MD Blood specimen (specimen) 07/23/2007 7:47 AM CDT 07/23/2007 8:06 AM CDT us Scooter Wood MD CHEMISTRY ORDERABLES Final Resu lt Performing Organization Address [facility] Phone Number [facility] [address] [place] [address] * HEPATITIS C ANTIBODY (07/23/2007 7:47 AM CDT) HEPATITIS C AB NON-REACTI VE NON-REACT SHERINE [facility] SIGNAL TO CUT OFF 0.05 <1.00 [facility] Comment: Lab test performed by: [employer] [address] [phone] LAURITA GARCIA MD Blood specimen (specimen) 07/23/2007 7:47 AM CDT 07/23/2007 8:04 AM CDT us Scooter Wood MD CHEMISTRY ORDERABLES Final Resu lt Performing Organization Address [facility] de Phone Number [facility] [address] [place] [address] * HEPATITIS B SURFACE AB (07/23/2007 7:47 AM CDT) HEPATITIS B SURFACE AB <5 mIU/mL [facility] Comment: PATIENT DOES NOT HAVE IMMUNITY TO HEPATITIS B VIRUS. Lab test performed by: [employer] [address] [phone] LAURITA GARCIA MD Blood specimen (specimen) 07/23/2007 7:47 AM CDT 07/23/2007 8:06 AM CDT us Scooter Wood MD CHEMISTRY ORDERABLES Final Resu lt Performing Organization Address [facility]/ZIP Co de Phone Number [facility] [address] [place] [address] * TSH (07/23/2007 7:47 AM CDT) [facility] TSH 1.07 0.27 - 4.20 uU/mL [facility] Blood specimen (specimen) 07/23/2007 7:47 AM CDT 07/23/2007 8:04 AM CDT Scooter Wood MD CHEMISTRY ORDERABLES Final Resu lt Performing Organization Address [facility] Co de Phone Number [facility] [address] [place] [address] * (ABNORMAL) LACTATE DEHYDROGENASE (07/23/2007 7:47 AM CDT) [facility] LD (LACTATE DEHYDROGENASE) 129(L) 135 - 214 U/L [facility] Blood specimen (specimen) 07/23/2007 7:47 AM CDT 07/23/2007 8:04 AM CDT Scooter Wood MD CHEMISTRY ORDERABLES Final Resu lt Performing Organization Address [facility] Co de Phone Number [facility] [address] [place] [address] * (ABNORMAL) CBC WITH DIFFERENTIAL (07/23/2007 7:47 AM CDT) [facility] HEMOGLOBIN 15.4(H) 11.8 - 14.8 g/dL [facility] RDW 13.8 11.5 - 14.5 % [facility] WBC 9.4 4.0 - 9.8 K/uL [facility] MCH 32.4 27.2 - 32.6 pg [facility] MPV 12.1 9.3 - 12.4 fL [facility] HEMATOCRIT 45.2(H) 35.5 - 44.0 % [facility] RDW-STDEV 47.6 37.1 - 48.7 fL [facility] RBC 4.75 3.90 - 4.90 M/uL [facility] MCHC 34.1 31.5 - 35.5 % [facility] MCV 95.2 82.0 - 99.0 fL [facility] PLATELETS 215 140 - 350 K/uL [facility] EOSINOPHILS 2 0 - 7 % [facility] EOSINOPHIL ABSOLUTE 0.22 0.00 - 0.70 K/uL [facility] LYMPHOCYTES 23 16 - 45 % [facility] LYMPHOCYTE ABSOLUTE 2.15 0.70 - 4.50 K/uL [facility] BASOPHILS 0 0 - 2 % [facility] BASOPHILS ABSOLUTE 0.03 0.00 - 0.20 K/uL [facility] MONOCYTES 4 3 - 13 % [facility] MONOCYTE ABSOLUTE 0.42 0.10 - 1.30 K/uL [facility] NEUTROPHILS 70 45 - 70 % [facility] NEUTROPHIL ABSOLUTE 6.62 1.90 - 7.00 K/uL [facility] Blood specimen (specimen) 07/23/2007 7:47 AM CDT 07/23/2007 8:29 AM CDT us Scooter Wood MD HEMATOLOGY ORDERABLES Edited INTERFACE SYSTEM Refer to clinic/hospital department [facility] [address] [place] [address] * CK (07/23/2007 7:47 AM CDT) CK 50 10 - 145 U/L [facility] Blood specimen (specimen) 07/23/2007 7:47 AM CDT 07/23/2007 8:04 AM CDT us Scooter Wood MD CHEMISTRY ORDERABLES Final Resu lt [facility] [address] [place] [address] * (ABNORMAL) COMPREHENSIVE METABOLIC PANEL (07/23/2007 7:47 AM CDT) CREATININE 0.52 0.51 - 0.95 mg/dL [facility] ALT 17 0 - 31 U/L [facility] SODIUM 135 135 - 145 mmol/L [facility] ALKALINE PHOSPHATASE 50 35 - 104 U/L [facility] CO2 23 22 - 30 mmol/L [facility] BILIRUBIN TOTAL 0.3 0.2 - 1.0 mg/dL [facility] POTASSIUM 4.1 3.5 - 4.9 mmol/L [facility] TOTAL PROTEIN 7.7 6.3 - 8.6 g/dL [facility] GLUCOSE 110(H) 65 - 99 mg/dL [facility] AST 17 12 - 32 U/L [facility] BUN 13 6 - 20 mg/dL [facility] CALCIUM 8.9 8.4 - 10.2 mg/dL [facility] ALBUMIN 4.4 3.4 - 4.8 g/dL [facility] CHLORIDE 102 96 - 108 mmol/L [facility] GFR, >60 >=60 mL/min/1. 7 sq meter [facility] GFR >60 >=60 mL/min/1. 7 sq meter [facility] Comment: Estimated GFR rate interpretative information for both Americans and non- Americans is available on the [facility] at: [email or web address] Select: Lab Policies and Procedures Select: Reference Ranges - GFR Blood specimen (specimen) 07/23/2007 7:47 AM CDT 07/23/2007 8:04 AM CDT us Scooter Wood MD CHEMISTRY ORDERABLES Edited Performing Organization Address [facility] de Phone Number [facility] [address] [place] [address] * C-REACTIVE PROTEIN (07/23/2007 7:47 AM CDT) Pathologist [facility] CRP 0.3 0.0 - 0.8 mg/dL [facility] Blood specimen (specimen) 07/23/2007 7:47 AM CDT 07/23/2007 8:04 AM CDT us Scooter Wood MD CHEMISTRY ORDERABLES Final Resu lt Performing Organization Address [facility] de Phone Number [facility] [address] [place] [address] * SEDIMENTATION RATE (07/23/2007 7:47 AM CDT) Pathologist [facility] ESR (SEDIMENTATION RATE) 6 0 - 20 mm/hr [facility] Blood specimen (specimen) 07/23/2007 7:47 AM CDT 07/23/2007 8:29 AM CDT us Scooter Wood MD HEMATOLOGY ORDERABLES Final Res ult Performing Organization Address [facility] de Phone Number [facility] [address] [place] [address] * URINALYSIS (07/23/2007 7:47 AM CDT) CLARITY UA Clear Clear [facility] BILIRUBIN UA Negative Negative [facility] PROTEIN UA Negative Negative [facility] LEUKOCYTE ESTERASE UA Negative Negative [facility] SPECIFIC GRAVITY UA 1.009 1.001 - 1.035 [facility] GLUCOSE UA Negative Negative [facility] BLOOD UA Negative Negative [facility] COLOR UA Pale Yellow [facility] NITRITE UA Negative Negative [facility] UROBILINOGEN UA <1 <=1 mg/dL [facility] PH UA 5.0 5.0 - 8.0 [facility] KETONES UA Negative Negative [facility] 07/23/2007 7:47 AM CDT 07/23/2007 8:32 AM CDT Scooter Wood MD URINE ORDERABLES Final Result [facility] [address] [place] [address] * XR WRIST 2 VW RIGHT (07/23/2007 7:12 AM CDT) Anatomical Region Laterality Modality Wrist / Hand Other 07/23/2007 7:12 AM CDT Narrative 07/23/2007 9:[address] [facility] [address] [place], [place] [address] Admit Date: 07/23/2007 BISHOP LANDRY Sex: F Admit Prov: KARELUMUDonya Leung Date: 1965 Primary Care Prov: KARELUMUDonya Leung CMRN: [id number] Room: SYMONE SSN: [id number] IMAGING SERVICES Ordering Prov: N/A Accession Number: [id number] Interpretation RIGHT WRIST TWO VIEWS 07/23/2007 Clinical [...] AMK Procedure Note Provider, Historical - 07/23/[address] [address] Admit Date: 07/23/2007 BISHOP LANDRY Sex: F Admit Prov: KARELSCOOTER Madhu Date:1965 Primary Care Prov: KARELUMUDonya Leung CMRN: [id number] Room: [facility] SSN: [address] [place] [address] IMAGING SERVICES Ordering Prov: N/A Interpretation RIGHT [...] Narrative 07/23/2007 9:38 AM CDT [address] [address] [place], [place] [address] Admit Date: 07/23/2007 BISHOP LANDRY Sex: F Admit Prov: SCOOTER WOOD Date: 1965 Primary Care Prov: SCOOTER WOOD CMRN: [id number] Room: [facility]: [id number] IMAGING SERVICES Ordering Prov: N/A Accession Number: [id number] Interpretation LEFT WRIST 2 VIEWS 07/23/2007 History: [...] AMK Procedure Note Provider, Historical - 07/23/2007 [address] [place], [place] [address] Admit Date: 07/23/2007 BISHOP LANDRY Sex: F Admit Prov: SCOOTER WOOD Date:1965 Primary Care Prov: SCOOTER WOOD CMRN: [id number] Room: CHERELLENakul N: [id number] IMAGING SERVICES Ordering Prov: N/A Interpretation LEFT [...] AM CDT Narrative 07/23/2007 9:38 AM CDT [address] [address] Admit Date: 07/23/2007 LANDRY BISHOP Sex: F Admit Prov: SCOOTER WOOD Date: 1965 Primary Care Prov: SCOOTER WOOD CMRN: [id number] Room: [facility] SSN: [id number] IMAGING SERVICES Ordering Prov: N/A Accession Number: [id number] Interpretation RIGHT HAND TWO VIEWS 07/23/2007 Clinical [...] AMK Procedure Note Provider, Historical - 07/23/[address] [place], [place] [address] Admit Date: 07/23/2007 BISHOP LANDRY Sex: F Admit Prov: SCOOTER WOOD Date:1965 Primary Care Prov: SCOOTER WOOD CMRN: [id number] Room: [facility] SSN: [address] [place] [address] IMAGING SERVICES Ordering Prov: N/A Interpretation RIGHT [...] Narrative 07/23/2007 9:39 AM CDT [address] [address] [place], [place] [address] Admit Date: 07/23/2007 BISHOP LANDRY Sex: F Admit Prov: SCOOTER WOOD Date: 1965 Primary Care Prov: SCOOTER WOOD CMRN: [id number] Room: [facility] SSN: [address] [place] [address] IMAGING SERVICES Ordering Prov: N/A Accession Number: [id number] Interpretation LEFT HAND TWO VIEWS 07/23/2007 Clinical [...] AMK Procedure Note Provider, Historical - 07/23/2007 [facility] [address] [place], [place] [address] Admit Date: 07/23/2007 BISHOP LANDRY Sex: F Admit Prov: SCOOTER WOOD Date:1965 Primary Care Prov: SCOOTER WOOD CMRN: [id number] Room: SYMONE SSN: [id number] IMAGING SERVICES Ordering Prov: N/A Interpretation LEFT [...] AM CDT Narrative 07/23/2007 9:49 AM CDT [address] [address] Admit Date: 07/23/2007 BISHOP LANDRY Sex: F Admit Prov: SCOOTER WOOD Date: 1965 Primary Care Prov: SCOOTER WOOD CMRN: [id number] [facility] [id number] IMAGING SERVICES Ordering Prov: N/A Accession Number: [id number] Interpretation RIGHT FOOT 2 VIEWS 07/23/2007 History: [...] AMK Procedure Note Provider, Historical - 07/23/[address] [address] Admit Date: 07/23/2007 BISHOP LANDRY Sex: F Admit Prov: SCOOTER WOOD Date:1965 Primary Care Prov: SCOOTER WOOD CMRN: [id number] [facility]: [id number] IMAGING SERVICES Ordering Prov: N/A Interpretation RIGHT [...] Narrative 07/23/2007 9:49 AM CDT [address] [address] [place], [place] [address] Admit Date: 07/23/2007 BISHOP LANDRY Sex: F Admit Prov: SCOOTER WOOD Date: 1965 Primary Care Prov: SCOOTER WOOD CMRN: [id number] Room: Nakul SSN: [id number] IMAGING SERVICES Ordering Prov: N/A Accession Number: [id number] Interpretation LEFT FOOT 2 VIEWS 07/23/2007 Clinical [...] Note Provider, Historical - 07/23/2007 [address] [address] [place], [place] [address] Admit Date: 07/23/2007 BISHOP LANDRY Sex: F Admit Prov: SCOOTER WOOD Date:1965 Primary Care Prov: SCOOTER WOOD CMRN: [id number] Room: [facility] SSN: [id number] IMAGING SERVICES Ordering Prov: N/A Interpretation LEFT [...] AM CDT Narrative 07/23/2007 9:49 AM CDT [address] [address] Admit Date: 07/23/2007 BISHOP LANDRY Sex: F Admit Prov: SCOOTER WOOD Date: 1965 Primary Care Prov: SCOOTER WOOD CMRN: [id number] [facility]: [id number] IMAGING SERVICES Ordering Prov: N/A Accession Number: [id number] Interpretation RIGHT ANKLE 2 VIEWS 07/23/2007 History: [...] AMK Procedure Note Provider, Historical - 07/23/2007 [facility] [address] [place], [place] [address] Admit Date: 07/23/2007 BISHOP LANDRY Sex: F Admit Prov: SCOOTER WOOD Date:1965 Primary Care Prov: SCOOTER WOOD CMRN: [id number] Room: [facility] SSN: [id number] IMAGING SERVICES Ordering Prov: N/A Interpretation RIGHT [...] Narrative 07/23/2007 9:49 AM CDT [address] [address] [place], [place] [address] Admit Date: 07/23/2007 BISHOP LANDRY Sex: F Admit Prov: SCOOTER WOOD Date: 1965 Primary Care Prov: SCOOTER WOOD CMRN: [id number] Room: [facility] SSN: [id number] IMAGING SERVICES Ordering Prov: N/A Accession Number: [id number] Interpretation LEFT ANKLE 2 VIEWS 07/23/2007 Clinical [...] Note Provider, Historical - 07/23/2007 [address] [address] [place], [place] [address] Admit Date: 07/23/2007 BISHOP LANDRY Sex: F Admit Prov: SCOOTER WOOD Date:1965 Primary Care Prov: SCOOTER WOOD CMRN: [id number] Room: [facility] SSN: [id number] IMAGING SERVICES Ordering Prov: N/A Interpretation LEFT [...] unspecified documented in this encounter Care Teams 6Th Grade Teacher Relationship Specialty Start Date End Date Jt Zamora MD [address] [place] [phone] PCP - General Family Practice 12/17/11 documented as of this encounter
--- OUTSIDE RECORDS SUMMARY | 2024-09-24 00:58 | XMS_ITS | Clinical Summary ---
Author Organization [facility] Address [address] [place] [address] Care Team Providers Care Exchange Mechanic Name Role Phone Jt Zamora MD Primary Care Provider [phone] Source Comments [facility],non-owned Affiliates and Associated Physician Practices is amultiple site organization consisting of ambulatory clinics and hospital sitesin [place], [place], [place] and [place]. This disclosure is being madepursuant to the Care Everywhere program and may not contain all information available regarding this patient. Last updated 18.[facility] Allergies Active Allergy Reactions Criticality Noted Date [...] 81 mg by mouth once daily Active eobio-6-eonh ethyl esters (LOVAZA) 1 G capsule Take [...] on file Legal Sex Female 5:49 PM [facility] [employer] Gender Identity Not on file Sexual Orientation Not on file Last Filed Vital Signs Vital Sign Reading Time Taken Comments Blood Pressure 118/59 05/26/2018 10:57 AM [facility] Pulse 83 05/26/2018 10:57 AM [facility] Temperature 36.5 C (97.7 F) 05/26/2018 10:57 AM [facility] Respiratory Rate 20 04/16/2018 2:00 PM [facility] Oxygen Saturation 95% 04/16/2018 2:00 PM [facility] Inhaled Oxygen Concentration - - Weight 109.4 kg (241 lb 1.6 oz) 019 10:57 AM [facility] Height 162.6 cm (5' 4) 05/26/2018 10:5 7 AM [facility] Body Mass Index 41.38 05/26/2018 10:57 AM [facility] [facility] Plan of Treatment Health Maintenance Due Date [...] COMPREHENSIVE METABOLIC PANEL Routine 03/25/2018 8:58 AM [facility] Elevated liver enzymes HEPATITIS C ANTIBODY Routine 01/28/2013 10:30 AM CDT from Last 3 Months or Most Recently Relevant to Health Maintenance Results * (ABNORMAL) COMPREHENSIVE METABOLIC PANEL (03/25/2018 8:58 AM [facility]) Glucose 112(H) 65 - 99 mg/dL [facility] [...] approximately 13% higher for people identified as -Nepalese. eGFR by MDRD 110 > OR = [...] 29 U/L [facility] Comment: Test Performed at: [employer] [id number] [place] [phone] LAURITA RAMIREZ DO,MPH Blood BLOOD SPECIMEN / Unknown 03/25/2018 8:58 AM [facility] 03/25/2018 8:59 AM [facility] [employer] [facility] us Darwin Mackenzie MD LAB - CHEMISTRY ORDERABLES Yumiko christian Result [facility] [address] [place] [address] * HEPATITIS C ANTIBODY (01/28/2013 10:30 AM CDT) Pathologist [facility] Hepatitis C Antibody NON-REACTI VE NON-REACT SHERINE [facility] ([facility]) Signal/Cutoff 0.03 <1.00 [facility] ([facility]) Comment: Test Performed at: [facility] [place] [address] [place] [address] LAURITA RAMIREZ DO,MPH 01/28/2013 10:3 0 AM CDT 01/28/2013 10:31 AM CDT us Kelly Caraballo MD LAB - CHEMISTRY OR DERABLES Edited Result - Final [facility] ([facility]) [id number] from Last 3 Months or Most Recently Relevant to Health Maintenance [place] [address] [place] [address] [facility] NONA Care Teams Exchange Mechanic Relationship Specialty Start Date End Date Jt Zamora MD PCP - General 04/12/08
--- OUTSIDE RECORDS SUMMARY | 2024-09-24 00:59 | XMS_ITS | Continuity of Care Document ---
Author Organization [facility] Address [address] [place] [address] [address] [place] [address] Phone Care Team Providers Care Ur Coordinator Name Role Phone Mehnaz Velazquez Unavailable Unavailable Advance Directives Directive Yes / No Effective Date File Name No Information Encounters Encounter Description Practice Location Reason(s) For Visit Diagnoses Date Provider Providers Copied on Encounter [facility], [address] [place] [address] [address], [place], [place], [id number], [place] tel:[phone] [facility] No Information Mar-0 8-200 5 Caroline Darby. [address] , [address], [place], [address], [place]. tel:[phone] Family History Family Member Type Diagnosis Age [...]
--- OUTSIDE RECORDS SUMMARY | 2024-09-24 00:59 | XMS_ITS | Clinical Summary ---
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
--- OUTSIDE RECORDS SUMMARY | 2024-09-24 00:59 | XMS_ITS | Clinical Summary ---
Author Organization [facility] [address] [facility] [address] Road Address [address] [place] [address] Care Team Providers Care Aviation Project Engineer Name Role Phone Soham Arnold MD Unavailable [phone] Jeaneth Funez MD Unavailable [phone] Walt Shetty MD Unavailable [phone] Jaime Cleaning MD Primary Care Provider [phone] Allergies Active Allergy Reactions Criticality Noted Date [...] hypertension 09/16/2023 Coronary artery disease invo lving southern ute coronary artery of southern [place] heart without angina pectoris 09/16/2023 Morbid obesity [...] symptoms. Encouraged her to return to her bus escort for additional review of her facial redness [...] history of psoriasis on her elbows. Saw bus escort in the past who provided topical agents with resolution of skin rashes. 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 (Added by [...] on file Legal Sex Female 8:03 PM LOG CUT OFF SAWYER Gender Identity Not on file Sexual Orientation Not on file Obstetrics History Last Filed Vital Signs Vital Sign Reading Time Taken Comments Blood Pressure 132/74 05/21/2024 3:24 PM LOG CUT OFF SAWYER Pulse 88 05/21/2024 3:24 PM LOG CUT OFF SAWYER Temperature - - Respiratory Rate - - Oxygen Saturation 99% 05/21/2024 3:24 PM LOG CUT OFF SAWYER Inhaled Oxygen Concentration - - Weight 108.4 kg (239 lb) 05/21/2024 3:24 PM LOG CUT OFF SAWYER Height 162.6 cm (5' 4) 05/21/2024 3:24 PM LOG CUT OFF SAWYER Body Mass Index 41.02 05/21/2024 3:24 PM LOG CUT OFF SAWYER Plan of Treatment Health Maintenance Due Date [...] Comment: For additional information, please refer to http://Formarum.[employer]/faq/CTS140 (This link is being provided for informational/ [...] a test for HCV RNA (test code 63199) is suggested. For additional information please refer to http://Formarum.[employer]/faq/ICC66r8 (This link is being provided for informational/ educational purposes only.) 12/06/2021 11:2 6 AM CDT 12/06/2021 11:28 AM CDT Walt Shetty MD LAB MICROBIOLOGY - GENERAL ORD ERABLES Final Result [facility] [address] [place] [address] from Last 3 Months or Most Recently Relevant to Health Maintenance Insurance [facility] [employer] ([employer]) [place] [employer] ([employer] [place] Member Subscriber Plan / Payer ( fective 2011-Present) Name:Bihsop Landry Relation to Subscriber:Spouse Name:SAGAR LANDRY Date of :1963 (Home) Address: [address] [place] [address] Payer ID:[id number] (NAIC) Type:BC OTHER Address: [address] [place] [id number] Care Teams Aviation Project Engineer Relationship Specialty Start Date End Date Jaime Cleaning MD [address] [facility] [address] [place] [address] PCP - General Internal Medicine 11/01/21 Soham Arnold MD [address] [place] [address] [address] Referring Physician Cardiovascular Disease 02/03/19 Jeaneth Funez MD [address] [place] [address] Referring Physician Dermatology 03/10/19 Walt Shetty MD [address] [place] [address] Consulting Physician Rheumatology 11/01/21
--- OUTSIDE RECORDS SUMMARY | 2024-09-24 00:59 | XMS_ITS | Referral Summary ---
Author Organization [facility] [address] [facility] [address] Address [address] [place] [address] Care Team Providers Care Commissioner Of Officials Name Role Phone Soham Arnold MD Unavailable [phone] Jeaneth Funez MD Unavailable [phone] Walt Shetty MD Unavailable [phone] Jaime Cleaning MD Primary Care Provider [phone] Allergies Active Allergy Reactions Criticality Noted Date [...] hypertension 09/16/2023 Coronary artery disease invo lving coquille coronary artery of coquille heart without angina pectoris 09/16/2023 Morbid obesity [...] symptoms. Encouraged her to return to her fabricator artificial breast for additional review of her facial redness [...] history of psoriasis on her elbows. Saw fabricator artificial breast in the past who provided topical agents with resolution of skin rashes. 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 Gender Identity Not on file Sexual Orientation Not on file Last Filed Vital Signs Vital Sign Reading Time Taken Comments Blood Pressure 132/74 05/21/2024 3:24 PM CONSTRUCTION ACCOUNTANT Pulse 88 05/21/2024 3:24 PM CONSTRUCTION ACCOUNTANT Temperature - - Respiratory Rate - - Oxygen Saturation 99% 05/21/2024 3:24 PM CONSTRUCTION ACCOUNTANT Inhaled Oxygen Concentration - - Weight 108.4 kg (239 lb) 05/21/2024 3:24 PM CONSTRUCTION ACCOUNTANT Height 162.6 cm (5' 4) 05/21/2024 3:24 PM CONSTRUCTION ACCOUNTANT Body Mass Index 41.02 05/21/2024 3:24 PM CONSTRUCTION ACCOUNTANT Plan of Treatment Not on file Procedures Procedure Name Priority Date/Time Associated Diagnosis Comments HEPATITIS PANEL, ACUTE Routine 12/06/2021 11:26 AM CDT from Last 3 Months or Most Recently Relevant to Health Maintenance Results * Hepatitis panel, acute (12/06/2021 11:26 AM CDT) Hep A IgM NON-REACTI VE NON-REACT SHERINE [facility] Comment: For additional information, please refer to http://education.[employer].Agrivida/faq/RPR484 (This link is being provided for informational/ [...] a test for HCV RNA (test code 91595) is suggested. For additional information please refer to http://education.Volunia/faq/DSG26d0 (This link is being provided for informational/ educational purposes only.) 12/06/2021 11:2 6 AM CDT 12/06/2021 11:28 AM CDT Walt Shetty MD LAB MICROBIOLOGY - GENERAL ORD ERABLES Final Result [facility] [address] [place] [address] from Last 3 Months or Most Recently Relevant to Health Maintenance Insurance Alerts [place] Alerts [place] Alerts [place] Care Teams Commissioner Of Officials Relationship Specialty Start Date End Date Jaime Cleaning MD [address] [facility] [address] [facility] [address] [place] [address] PCP - General Internal Medicine 11/01/21 Soham Arnold MD [address] [place] [address] [address] [place] [address] Referring Physician Cardiovascular Disease 02/03/19 Jeaneth Funez MD [address] [place] [address] Referring Physician Dermatology 03/10/19 Walt Shetty MD [address] [place] [address] Consulting Physician Rheumatology 11/01/21
--- OUTSIDE RECORDS SUMMARY | 2024-09-24 00:59 | XMS_ITS | Patient Health Record ---
Author Organization [employer] Address [address] [facility] [address]. [address] [place] [address] Care Team Providers Care Secondary History Teacher Name Role Phone Jt Zamora MD Primary Care Provider Kirby Jeronimo Unavailable [phone] Soham Arnold MD Unavailable Unavailable Allergies Allergen [...] Problem Status W/U Status Risk Notes Problem [id number] Abnormal MRI of abdomen (R93.5) Active confirmed Plan Of Treatment Pending Test Test Name Order Date Initiate SIBO 08/08/2016 MRI Abdomen with Contrast 10/06/2018 Insurance Providers Payer Name Payer Address Payer Phone Subscriber Number Group Number Insured Name Patient Relationship to Insured Coverage Start Date Coverage End Date [employer] Access Choice PPO E2 [address] [place] [address] [id number] Sagar Evans Spouse - patient is the [...]
--- OUTSIDE RECORDS SUMMARY | 2024-09-24 00:59 | XMS_ITS | Encounter Summary ---
Author Organization [facility] Address [address] [place] [address] Care Team Providers Care Fitness Assistant Name Role Phone Jt Zamora MD Primary Care Provider [phone] Encounter Details Date Type Department Care Team (Late st Contact Info) Description 10/10/2008 Outpatient Historical [facility] Kirby Brambila MD [address] [place] [address] [place] [address] Heartburn; Diarrhea; Flatulence, Eructation, and Gas Pain Social History Tobacco Use Types Packs/Day Years Used Date Smoking Tobacco: Never Assessed Comments Unknown Sex and Gender Information Value Date Recorded Sex Assigned at Not on file 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 Gender Identity Not on file Sexual Orientation Not on file documented as of this encounter Plan of Treatment Not on file documented as of this encounter Procedures Procedure Name Priority Date/Time Associated Diagnosis Comments PATHOLOGY Routine 10/10/2008 10:24 AM CDT POC , URINE Routine 10/10/2008 7:43 AM CDT documented in this encounter Results * PATHOLOGY (10/10/2008 10:24 AM CDT) FINAL REPORT [facility] [address], [place] [address] Patient: BISHOP LANDRY : 1965 Procedure Date: 10/10/2008 Accession Date: 10/10/2008 Case No: [id number] Ordering Dr: KIRBY BRAMBILA Case types AW, BW, FW, NW and SH are performed by [facility], [place], [place] SURGICAL PATHOLOGY & NON-GYNECOLOGIC CYTOPATHOLOGY REPORT [...] 12:32 pm Microscopic: Received are slides labeled [id number], Bishop Landry. Sections of small bowel contain four fragments of small intestinal mucosa showing no significant histopathologic abnormalities. There is no significant increase in intraepithelial or lamina propria inflammation. Villous architecture appears preserved, without evidence of villous blunting. There is no evidence of active inflammation, granulomas, or foveolar metaplasia. [facility] 10.11.2008 10:12 am Staging Form: No. ELECTRONIC SIGNATURE FOR LIANA TITUS M.D.- 10/11/08 03:24 pm INTERFACE SYSTEM 10/10/2008 10:2 4 AM CDT Kirby Brambila MD PATHOLOGY/CYTOLOGY ORDERABLES Final Result INTERFACE SYSTEM Refer to clinic/hospital department * POC , URINE (10/10/2008 7:43 AM CDT) , URINE POC Negative Negative [facility] 10/10/2008 7:43 AM CDT 10/10/2008 7:43 AM CDT Kirby Brambila MD POINT OF CARE TESTING Final R esult INTERFACE SYSTEM Refer to clinic/hospital department [facility] CLIA# [id number] [address] [place] [address] documented in this encounter Visit Diagnoses Diagnosis Heartburn Diarrhea Flatulence, eructation, and gas pain documented in this encounter Care Teams Fitness Assistant Relationship Specialty Start Date End Date Jt Zamora MD [facility] [place] [address] PCP - General Family Practice 12/17/11 documented as of this encounter
[2024-09-24] MEDS: ACETAMINOPHEN 500 MG TABLET 1000 MG PO (08:45)
[2024-09-24] MEDS: LACTATED RINGERS 1,000 ML 30 ML IV CONT ×2 (08:50→13:17)
[2024-09-24] MEDS: KETOROLAC 15 MG/ML VIAL (*BKC) IV PUSH ×2 (08:50→12:20)
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
[2024-09-24 08:59] LABS: Glucose Point of Care 131 mg/dl (65-105)
[2024-09-24] MEDS: SCOPOLAMINE 1 MG PATCH 1 PATCH TRANSDERM (09:31)
--- NOTE | 2024-09-24 10:43 | WPDHPUPDATE1 ---
History and Physical Update Update Date/Time: 09/24/24 10:43 History and Physical has been reviewed, including an updated exam of the patient. There are NO changes in the patient's condition. Risks, benefits, and alternatives have been discussed and questions answered. Patient agrees to proceed with procedure.
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
[2024-09-24] MEDS: CLINDAMYCIN 900 MG/D5W 50 ML 900 MG/50 ML PIGGYBACK 50 MG IVPB (11:22)
[2024-09-24] MEDS: LIDO 1%/EPINEPHRINE 1:100,000 50 ML VIAL 20 ML INFILTRATE (11:50)
[2024-09-24] MEDS: BUPivacaine HCL 0.5% 10 ML AMP 20 ML INFILTRATE (11:51)
--- NOTE | 2024-09-24 12:01 | S_PTH ---
PATIENT: Lia Westfall LOC: [facility] U#:[id number] AGE/SX: 59/F ROOM: RE09/24/[address]: Epi Goldberg MD : 1965 BED: DIS: 09/24/2024 SPEC #: [id number] RECD: 09/24/24 12:56 STATUS: ELIDA REQ #: [id number] REMA: 09/24/24 12:[address]: Epi Goldberg DEPT: [facility] Surgical RECD BY: Anabel Main ENTERED: 09/24/24 12:57 SP TYPE: Surgical OTHR DR: Jaime Cleaning MD Tissues: A - Hernia Sac Procedures: Gross and Microscopic Level 2 Hematoxylin and Eosin Stain
[2024-09-24] MEDS: fentaNYL CITRATE INJ (*CRX) 100 MCG/2 ML VIAL 25 MCG IV PUSH ×3 (13:05→13:55)
--- NOTE | 2024-09-24 13:19 | W.PM.PROC2 ---
Procedure Note - Detailed Date of Procedure 09/24/24 Pre-op Diagnosis Reducible periumbilical incisional hernia Post-op Diagnosis Same Procedure Performed Open periumbilical incisional hernia repair without mesh Surgeon Epi Goldberg MD Digital Solutions Architect Allie VILLASENOR Anesthesia General Indications Patient is a 59-year-old female he had a prior laparoscopic assisted vaginal hysterectomy. She has developed a port site incision hernia at the umbilicus. It is reducible. She now presents for repair of the hernia the open approach without mesh due to symptoms of pain. Findings The patient had a periumbilical reducible incisional hernia with a defect measuring 1.5cm in diameter. Description of Procedure After informed consent was obtained. The patient was brought to the operating room she was placed supine position and then general LMA anesthesia was administered. The abdomen was then prepped and draped usual sterile fashion. A time-out was then performed correctly identifying the patient as well as procedure to be performed. She was given perioperative IV antibiotics. I made a small curved periumbilical incision along the lower edge of the umbilicus. Dissection was carried sharply down through the dermis of the skin with a scalpel. Electrocautery was then used to dissect down through the subcutaneous tissue to encounter the hernia sac. I then encircled the hernia sac with blunt Kylee clamp dissection and then disconnected the dermis of the umbilicus from the hernia sac with electrocautery. I then opened the hernia sac to find a small amount of preperitoneal fatty tissue within the hernia sac. The hernia sac was resected with electrocautery at the level of the fascia and sent to pathology for examination. This left a defect measuring approximately 1.5cm in diameter. The defect was then closed primarily with the use of interrupted 0 nonabsorbable Ethibond sutures. The defect closed very nicely without any tension. The wound was then irrigated with sterile saline solution. 40cc of 1% lidocaine mixed with 0.5% Marcaine was injected subcutaneous tissues around the incision. The inverted umbilicus was then recreated by placement of a 3-0 Vicryl suture to fixate the dermis of the umbilicus down to the deeper fascial structure. Additional interrupted 2-0 Vicryl sutures were then used to close the subcutaneous tissues around the umbilical stalk closing the space around the area. This is then followed by a more superficial layer of interrupted 3-0 Vicryl sutures and then the skin edges were approximated utilizing a running subcuticular 4 Monocryl suture. The incision was then cleaned the skin glue was applied. The patient tolerated the procedure well no complications. All sponges, needles, and instrument counts were correct at the end procedure. EBL was ___cc. The patient was awakened and taken to recovery in stable and satisfactory condition. Implants None Estimated Blood Loss 10 Drains No Packing No Pathology Yes (Hernia sac to pathology) Complications No immediate complications Condition Stable Disposition PACU [facility] Billing Surgery - Charge Forward: Surgery Billing
[2024-09-24] MEDS: oxyCODONE HCL (*CRX) 5 MG TAB IR PO (14:19)
[2024-09-24] MEDS: ONDANSETRON INJ 4 MG/2 ML VIAL IV PUSH (14:48)
== END 2024-09-24 15:05 | disposition home or self-care (01) ==
PROVIDERS: PCP Internal Medicine; Visit Provider Surgery
PROC: (CPT 49591; principal; 2024-09-24 10:30)
DX: K43.2 Incisional hernia without obstruction or gangrene (principal); E11.9 Type 2 diabetes mellitus without complications; F17.210 Nicotine dependence, cigarettes, uncomplicated; E66.9 Obesity, unspecified; Z68.39 Body mass index [BMI] 39.0-39.9, adult
CPT/HCPCS: 49591; 82948; 88302; A9270; J1885; J2003; J2004; J2250; J2405; J2704; J3010; J7120

== ENCOUNTER 2024-10-27 09:27 | Outpatient (CLI) | payer BC, SELFPAY ==
--- NOTE | ~2024-10-27 | XR_ITS ---
EXAMINATION: XR chest 2V DATE: 10/27/2024 09:49 INDICATION: Cough, wheezing and chest tightness TECHNIQUE: PA and lateral views of the chest were obtained. COMPARISON: Chest CT dated 11/12/2023 FINDINGS: Increased interstitial pattern and a few peripheral Sugey B-lines in the bilateral lower lung zones consistent with mild pulmonary edema. Additional linear discoid atelectasis at the right lung base. N o pleural effusion or pneumothorax. Mild cardiomegaly with coronary artery stenting. Mild thoracic sp ondylosis. IMPRESSION: 1. Mild. Cardiomegaly and mild pulmonary edema in the lower lungs. Reviewed, dictated and finalized at location B.
[2024-10-27 09:44] LABS: Hematocrit 49.2 % (37.0-47.0); Hemoglobin 16.1 g/dL (12.0-15.0); Immature Granulocyte Percent A 1.1 % (0-0.5); Lymphocytes Absolute Auto 1.77 K/mm3 (0.9-3.2); Mean Corpuscular HGB Conc 32.7 g/dl (32-36); Mean Corpuscular Hemoglobin 31.9 pg (26-34); Mean Corpuscular Volume 97.4 fl (80-100); Nucleated Red Blood Cells Absolute Auto 0.000 K/mm3 (0.0-0.012); Nucleated Red Blood Cells Perc 0.0 % (0.0-0.2); Platelet Count Result 182 k/mm3 (150-375); Red Blood Count 5.05 M/mm3 (4.2-5.4); White Blood Count 7.6 K/mm3 (4.5-10.0)
--- OUTSIDE RECORDS SUMMARY | 2024-10-27 09:44 | XMS_ITS | Encounter Summary ---
Author Organization [facility] Address [address] [place] [address] Care Team Providers Care Baker Pie Name Role Phone Jt Zamora MD Primary Care Provider [phone] Encounter Details Date Type Department Care Team (Late st Contact Info) Description 04/02/2018 Lab Requisition [facility] [address] [place] [id number] Jeaneth Funez MD [address] [facility] [facility] [address] [place] [address] Social History Tobacco Use Types Packs/Day Years Used Date Smoking Tobacco: Every Day Cigarettes Smokeless Tobacco: Never Alcohol Use Standard Drinks/Week Comments Yes 0 (1 standard drink = 0.6 oz pur e alcohol) 3 to 4 times a week Comments Unknown Sex and Gender Information Value Date Recorded Sex Assigned at Not on file Legal Sex Female 5:49 PM [employer] SU[employer]IST Gender Identity Not on file Sexual Orientation Not on file documented as of this encounter Plan of Treatment Not on file documented as of this encounter Procedures Procedure Name Priority Date/Time Associated Diagnosis Comments DERMATOPATH TECHNICAL REPORT Routine 04/01/2018 12:00 AM [employer]IST documented in this encounter Results * DERMATOPATH TECHNICAL REPORT (04/01/2018 12:00 AM [employer] SU[employer] SPECIALIST) Case Report Dermatopathology Report Case: [id number] Authorizing Provider: Jeaneth Funez MD Collected: 04/01/2018 12:00 AM Pathologist: Radha Lara MD Received: 04/02/2018 07:23 AM Specimen: Skin, right hand 12:18 PM [facility] Addendum 1 At the request of the diagnosing physician, the technical component for PAS and Colloidal Iron was performed by [facility] Dermatopathology Laboratory. 12:18 PM [facility]ERMATOP[facility] Addendum electronically signed by Radha Lara MD on 04/07/2018 at 1218 [employer] Clinical History PSO vs CTD. Paisley scaly patches. 12:18 PM [facility]ERMATOPATH[facility]Y [facility] Gross Description Specimen A: Received is one formalin filled container labeled with the patient's name and designated right hand. The specimen consists of a punch measuring [id number], bisected. Jar 0. [facility] Dermatopathology [facility] performed the technical component only. 12:18 PM [facility] DERMATOPATHOLOGY [facility] Embedded Images 12:18 PM [facility] DERMATOPATHOLOGY [facility] DISCLAIMER An external and internal positive and negative controls are appropriate for the histochemical, immunohistochemical and immunofluorescence stain(s) in this case (if any), except where stated explicitly. The performance characteristics of the stain(s) cited in this report were developed and its performance characteristic determined by the Dermatopathology Laboratory at [facility]. These tests need not be, and therefore are not, approved by the [place] Food and Drug Administration. The tests are used for clinical purposes. 12:18 PM [facility] DERMATOPATHOLOGY [facility]ORATORY at [address] [employer] Pathology/Cytolog y TISSUE SPECIMEN FROM SKIN / Unknown 04/01/2018 04/02/2018 7:23 AM [employer]IST us Jeaneth Funez MD LAB - PATHOLOGY/CYTOLOGY ORD ERABLES Edited Result - Final DERMATOPATHOLOGY LABORATORY [facility] - Department of Dermatology [address] [place] [address], [facility] [phone] documented in this encounter Visit Diagnoses Not on filedocumented in this encounter Care Teams Baker Pie Relationship Specialty Start Date End Date Jt Zamora MD PCP - General 04/12/08 documented as of this encounter
--- OUTSIDE RECORDS SUMMARY | 2024-10-27 09:44 | XMS_ITS | Encounter Summary ---
Author Organization [employer] [facility] Address [address] [place] [address] Care Team Providers Care Telemetry Registered Nurse Name Role Phone Jt Zamora MD Primary Care Provider [phone] Encounter Details Date Type Department Care Team (Latest Contact Info) Description 07/23/2007 Outpatient Historical HIS 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 Gender Identity Not on file Sexual [...] AB IGG (07/23/2007 7:47 AM CDT) Pathologist [facility] CYCLIC CITRULLINATED PEPTIDE AB IGG <20 Units [facility] Comment: REFERENCE RANGE: NEGATIVE: <20 WEAK POSITIVE: 20-39 MODERATE/STRONG POSITIVE: 40-59 STRONG POSITIVE: >59 Lab test performed by: [employer] [id number] [employer] [place]u [phone] LAURITA GARCIA MD Blood specimen (specimen) 07/23/2007 7:47 AM CDT 07/23/2007 9:21 AM CDT Scooter Wood MD CHEMISTRY ORDERABLES Final Resu lt Performing Organization Address [facility] [[email or web address]] Co de Phone Number [facility] [address] [place] [address] * ALDOLASE (07/23/2007 7:47 AM CDT) [facility] ALDOLASE 3.3 < OR = 8.1 U/L [facility] Comment: Lab test performed by: [employer] [id number] [address] [employer] [place] [phone] LAURITA GARCIA MD Blood specimen (specimen) 07/23/2007 7:47 AM CDT 07/23/2007 8:06 AM CDT Scooter Wood MD CHEMISTRY ORDERABLES Final Resu lt Performing Organization Address [facility] [[email or web address]] Co de Phone Number [facility] [address] [place] [address] * RHEUMATOID FACTOR (07/23/2007 7:47 AM CDT) Pathologist [facility] RHEUMATOID FACTOR <6.0 0.0 - 13.9 IU/mL [facility] Blood specimen (specimen) 07/23/2007 7:47 AM CDT 07/23/2007 8:04 AM CDT us Scooter Wood MD CHEMISTRY ORDERABLES Final Resu lt Performing Organization Address [facility] [[email or web address]] Co de Phone Number [facility] [address] [place] [address] * COMPLEMENT C4 (07/23/2007 7:47 AM CDT) COMPLEMENT C4 20 10 - 40 mg/dL [facility] Blood specimen (specimen) 07/23/2007 7:47 AM CDT 07/23/2007 8:04 AM CDT us Scooter Wood MD CHEMISTRY ORDERABLES Final Resu lt Performing Organization Address [facility] Phone Number [facility] [address] [place] [address] * COMPLEMENT C3 (07/23/2007 7:47 AM CDT) COMPLEMENT C3 158 90 - 180 mg/dL [facility] Blood specimen (specimen) 07/23/2007 7:47 AM CDT 07/23/2007 8:04 AM CDT us Scooter Wood MD CHEMISTRY ORDERABLES Final Resu lt Performing Organization Address [facility] de Phone Number [facility] [address] [place] [address] * LUZ PANEL (07/23/2007 7:47 AM CDT) LUZ SCREEN NEGATIVE NEGATIVE [facility] Comment: Lab test performed by: [employer] JASBIR [id number] [phone] LAURITA GARCIA MD DNA AUTOABS DOUBLE STRANDED 4 IU/mL [facility] Comment: IU/mL INTERPRETATION ===== < OR = 4 NEGATIVE 5 - 9 INDETERMINATE > OR = 10 POSITIVE Lab test performed by: [employer] [id number] [place] [address] LAURITA GARCIA MD SCLERODERMA AB SCL 70 <1.0 NEG <1.0 NEG Index [facility] Comment: Lab test performed by: [employer] [address] [place] [phone] LAURITA GARCIA MD SJOGRENS ABS (SSB) <1.0 NEG <1.0 NEG Index [facility] Comment: Lab test performed by: [employer] [address] [place] [phone] LAURITA GARCIA MD RUSS ABS, SM/BUS MECHANIC AB <1.0 NEG <1.0 NEG Index [facility] Comment: Lab test performed by: [employer] [address] [place] [phone] LAURITA GARCIA MD RUSS ABS, SM AB <1.0 NEG <1.0 NEG Index [facility] SJOGRENS ABS (SSA) <1.0 NEG <1.0 NEG Index [facility] Blood specimen (specimen) 07/23/2007 7:47 AM CDT 07/23/2007 8:04 AM CDT Scooter Wood MD CHEMISTRY ORDERABLES Edited [facility] [address] [place] [address] * (ABNORMAL) HLA B27 (07/23/2007 7:47 AM CDT) HLA B27 DETECTED(A ) [facility] Comment: THE HLA B27 ANTIGEN IS PRESENT IN 9% OF AND 4% OF BLACK POPULATIONS. THIS ANTIGEN IS SEEN WITH A FREQUENCY OF 90% IN PATIENTS WITH ANKYLOSING SPONDYLITIS AND A FREQUENCY OF 80% IN PATIENTS WITH REITERS DISEASE. Lab test performed by: [email or web address] [phone] LAURITA GARCIA MD Blood specimen (specimen) 07/23/2007 7:47 AM CDT 07/23/2007 8:06 AM CDT us Scooter Wood MD CHEMISTRY ORDERABLES Final Resu lt Performing Organization Address [facility] Phone Number [facility] [address] [place] [address] * HEPATITIS C ANTIBODY (07/23/2007 7:47 AM CDT) HEPATITIS C AB NON-REACTI VE NON-REACT SHERINE [facility] SIGNAL TO CUT OFF 0.05 <1.00 [facility] Comment: Lab test performed by: [employer] JASBIR [id number] [address] [phone] LAURITA GARCIA MD Blood specimen (specimen) 07/23/2007 7:47 AM CDT 07/23/2007 8:04 AM CDT us Scooter Wood MD CHEMISTRY ORDERABLES Final Resu lt Performing Organization Address [facility] de Phone Number [facility] [address] [place] [address] * HEPATITIS B SURFACE AB (07/23/2007 7:47 AM CDT) HEPATITIS B SURFACE AB <5 mIU/mL [facility] Comment: PATIENT DOES NOT HAVE IMMUNITY TO HEPATITIS B VIRUS. Lab test performed by: [employer] JASBIR [id number] [phone] LAURITA GARCIA MD Blood specimen (specimen) 07/23/2007 7:47 AM CDT 07/23/2007 8:06 AM CDT us Scooter Wood MD CHEMISTRY ORDERABLES Final Resu lt Performing Organization Address [facility]/ZIP Co de Phone Number [facility] [address] [place] [address] * TSH (07/23/2007 7:47 AM CDT) [facility] TSH 1.07 0.27 - 4.20 uU/mL [facility] Blood specimen (specimen) 07/23/2007 7:47 AM CDT 07/23/2007 8:04 AM CDT Scooter Wood MD CHEMISTRY ORDERABLES Final Resu lt Performing Organization Address [facility] [[email or web address]] Co de Phone Number [facility] [address] [place] [address] * (ABNORMAL) LACTATE DEHYDROGENASE (07/23/2007 7:47 AM CDT) [facility] LD (LACTATE DEHYDROGENASE) 129(L) 135 - 214 U/L [facility] Blood specimen (specimen) 07/23/2007 7:47 AM CDT 07/23/2007 8:04 AM CDT Scooter Wood MD CHEMISTRY ORDERABLES Final Resu lt Performing Organization Address [facility] [[email or web address]] Co de Phone Number [facility] [address] [place] [address] * (ABNORMAL) CBC WITH DIFFERENTIAL (07/23/2007 7:47 AM CDT) [facility] HEMOGLOBIN 15.4(H) 11.8 - 14.8 g/dL [facility] RDW 13.8 11.5 - 14.5 % [facility] WBC 9.4 4.0 - 9.8 K/uL [facility] MCH 32.4 27.2 - 32.6 pg [facility] MPV 12.1 9.3 - 12.4 fL [facility] HEMATOCRIT 45.2(H) 35.5 - 44.0 % [facility] RDW-STDEV 47.6 37.1 - 48.7 fL [facility] RBC 4.75 3.90 - 4.90 M/uL [facility] MCHC 34.1 31.5 - 35.5 % [facility] MCV 95.2 82.0 - 99.0 fL [facility] PLATELETS 215 140 - 350 K/uL [facility] EOSINOPHILS 2 0 - 7 % [facility] EOSINOPHIL ABSOLUTE 0.22 0.00 - 0.70 K/uL [facility] LYMPHOCYTES 23 16 - 45 % [facility] LYMPHOCYTE ABSOLUTE 2.15 0.70 - 4.50 K/uL [facility] BASOPHILS 0 0 - 2 % [facility] BASOPHILS ABSOLUTE 0.03 0.00 - 0.20 K/uL [facility] MONOCYTES 4 3 - 13 % [facility] MONOCYTE ABSOLUTE 0.42 0.10 - 1.30 K/uL [facility] NEUTROPHILS 70 45 - 70 % [facility] NEUTROPHIL ABSOLUTE 6.62 1.90 - 7.00 K/uL [facility] Blood specimen (specimen) 07/23/2007 7:47 AM CDT 07/23/2007 8:29 AM CDT us Scooter Wood MD HEMATOLOGY ORDERABLES Edited INTERFACE SYSTEM Refer to clinic/hospital department [facility] [address] [place] [address] * CK (07/23/2007 7:47 AM CDT) CK 50 10 - 145 U/L [facility] Blood specimen (specimen) 07/23/2007 7:47 AM CDT 07/23/2007 8:04 AM CDT us Scooter Wood MD CHEMISTRY ORDERABLES Final Resu lt [facility] [address] [place] [address] * (ABNORMAL) COMPREHENSIVE METABOLIC PANEL (07/23/2007 7:47 AM CDT) CREATININE 0.52 0.51 - 0.95 mg/dL [facility] ALT 17 0 - 31 U/L [facility] SODIUM 135 135 - 145 mmol/L [facility] ALKALINE PHOSPHATASE 50 35 - 104 U/L [facility] CO2 23 22 - 30 mmol/L [facility] BILIRUBIN TOTAL 0.3 0.2 - 1.0 mg/dL [facility] POTASSIUM 4.1 3.5 - 4.9 mmol/L [facility] TOTAL PROTEIN 7.7 6.3 - 8.6 g/dL [facility] GLUCOSE 110(H) 65 - 99 mg/dL [facility] AST 17 12 - 32 U/L [facility] BUN 13 6 - 20 mg/dL [facility] CALCIUM 8.9 8.4 - 10.2 mg/dL [facility] ALBUMIN 4.4 3.4 - 4.8 g/dL [facility] CHLORIDE 102 96 - 108 mmol/L [facility] GFR, >60 >=60 mL/min/1. 7 sq meter [facility] GFR >60 >=60 mL/min/1. 7 sq meter [facility] Comment: Estimated GFR rate interpretative information for both Americans and non- Americans is available on the [facility] Intranet at: [email or web address] Select: Lab Policies and Procedures Select: Reference Ranges - GFR Blood specimen (specimen) 07/23/2007 7:47 AM CDT 07/23/2007 8:04 AM CDT us Scooter Wood MD CHEMISTRY ORDERABLES Edited Performing Organization Address [facility] de Phone Number [facility] [address] [place] [address] * C-REACTIVE PROTEIN (07/23/2007 7:47 AM CDT) Pathologist [facility] CRP 0.3 0.0 - 0.8 mg/dL [facility] Blood specimen (specimen) 07/23/2007 7:47 AM CDT 07/23/2007 8:04 AM CDT us Scooter Wood MD CHEMISTRY ORDERABLES Final Resu lt Performing Organization Address [facility] de Phone Number [facility] [address] [place] [address] * SEDIMENTATION RATE (07/23/2007 7:47 AM CDT) Pathologist [facility] ESR (SEDIMENTATION RATE) 6 0 - 20 mm/hr [facility] Blood specimen (specimen) 07/23/2007 7:47 AM CDT 07/23/2007 8:29 AM CDT us Scooter Wood MD HEMATOLOGY ORDERABLES Final Res ult Performing Organization Address [facility] de Phone Number [facility] [address] [place] [address] * URINALYSIS (07/23/2007 7:47 AM CDT) CLARITY UA Clear Clear [facility] BILIRUBIN UA Negative Negative [facility] PROTEIN UA Negative Negative [facility] LEUKOCYTE ESTERASE UA Negative Negative [facility] SPECIFIC GRAVITY UA 1.009 1.001 - 1.035 [facility] GLUCOSE UA Negative Negative [facility] BLOOD UA Negative Negative [facility] COLOR UA Pale Yellow [facility] NITRITE UA Negative Negative [facility] UROBILINOGEN UA <1 <=1 mg/dL [facility] PH UA 5.0 5.0 - 8.0 [facility] KETONES UA Negative Negative [facility] 07/23/2007 7:47 AM CDT 07/23/2007 8:32 AM CDT Scooter Wood MD URINE ORDERABLES Final Result [facility] [address] [place] [address] * XR WRIST 2 VW RIGHT (07/23/2007 7:12 AM CDT) Anatomical Region Laterality Modality Wrist / Hand Other 07/23/2007 7:12 AM CDT Narrative 07/23/2007 9:39 AM CDT [facility] [address] [place], [place] [address] Admit Date: 07/23/2007 BISHOP LANDRY Sex: F Admit Prov: KARELUMUDonya Leung Date: 1965 Primary Care Prov: KARELUMUDonya Leung CMRN: [id number] Room: [facility] SSN: [id number] IMAGING SERVICES Ordering Prov: N/A Accession Number: [id number] Interpretation RIGHT WRIST TWO VIEWS 07/23/2007 Clinical [...] AMK Procedure Note Provider, Historical - 07/23/[address] [address] Admit Date: 07/23/2007 BISHOP LANDRY Sex: F Admit Prov: KARELSCOOTER Madhu Date:1965 Primary Care Prov: KARELUMUDonya Leung CMRN: [id number] Room: [facility] SSN: [address] [place] [address] IMAGING SERVICES Ordering Prov: N/A Interpretation RIGHT [...] AM CDT Narrative 07/23/2007 9:38 AM CDT [address] [address] [place], [place] [address] Admit Date: 07/23/2007 BISHOP LANDRY Sex: F Admit Prov: SCOOTER WOOD Date: 1965 Primary Care Prov: SCOOTER WOOD CMRN: [id number] Room: [facility]: [id number] IMAGING SERVICES Ordering Prov: N/A Accession Number: [id number] Interpretation LEFT WRIST 2 VIEWS 07/23/2007 History: [...] AMK Procedure Note Provider, Historical - 07/23/2007 [address] [place], [place] [address] Admit Date: 07/23/2007 BISHOP LANDRY Sex: F Admit Prov: SCOOTER WOOD Date:1965 Primary Care Prov: SCOOTER WOOD CMRN: [id number] Room: [facility] N: [id number] IMAGING SERVICES Ordering Prov: N/A Interpretation LEFT [...] AM CDT Narrative 07/23/2007 9:38 AM CDT [address] [address] Admit Date: 07/23/2007 LANDRY BISHOP Sex: F Admit Prov: SCOOTER WOOD Date: 1965 Primary Care Prov: SCOOTER WOOD CMRN: [id number] Room: [facility] SSN: [id number] IMAGING SERVICES Ordering Prov: N/A Accession Number: [id number] Interpretation RIGHT HAND TWO VIEWS 07/23/2007 Clinical [...] AMK Procedure Note Provider, Historical - 07/23/[address] [place] [place], [place] [address] Admit Date: 07/23/2007 BISHOP LANDRY Sex: F Admit Prov: SCOOTER WOOD Date:1965 Primary Care Prov: SCOOTER WOOD CMRN: [id number] Room: [facility] SSN: [address] [place] [address] IMAGING SERVICES Ordering Prov: N/A Interpretation RIGHT [...] AM CDT Narrative 07/23/2007 9:39 AM CDT [address] [address] [place], [place] [address] Admit Date: 07/23/2007 BISHOP LANDRY Sex: F Admit Prov: SCOOTER WOOD Date: 1965 Primary Care Prov: SCOOTER WOOD CMRN: [id number] Room: [facility] SSN: [address] [place] [address] IMAGING SERVICES Ordering Prov: N/A Accession Number: [id number] Interpretation LEFT HAND TWO VIEWS 07/23/2007 Clinical [...] AMK Procedure Note Provider, Historical - 07/23/2007 [facility] [address] [place], [place] [address] Admit Date: 07/23/2007 BISHOP LANDRY Sex: F Admit Prov: SCOOTER WOOD Date:1965 Primary Care Prov: SCOOTER WOOD CMRN: [id number] Room: [facility] SSN: [id number] IMAGING SERVICES Ordering Prov: N/A Interpretation LEFT [...] AM CDT Narrative 07/23/2007 9:49 AM CDT [address] [address] Admit Date: 07/23/2007 BISHOP LANDRY Sex: F Admit Prov: SCOOTER WOOD Date: 1965 Primary Care Prov: SCOOTER WOOD CMRN: [id number] [facility]: [id number] IMAGING SERVICES Ordering Prov: N/A Accession Number: [id number] Interpretation RIGHT FOOT 2 VIEWS 07/23/2007 History: [...] AMK Procedure Note Provider, Historical - 07/23/[address] [address] Admit Date: 07/23/2007 BISHOP LANDRY Sex: F Admit Prov: SCOOTER WOOD Date:1965 Primary Care Prov: SCOOTER WOOD CMRN: [id number] [facility]: [id number] IMAGING SERVICES Ordering Prov: N/A Interpretation RIGHT [...] AM CDT Narrative 07/23/2007 9:49 AM CDT [address] [address] [place], [place] [address] Admit Date: 07/23/2007 BISHOP LANDRY Sex: F Admit Prov: SCOOTER WOOD Date: 1965 Primary Care Prov: SCOOTER WOOD CMRN: [id number] Room: [facility] SSN: [id number] IMAGING SERVICES Ordering Prov: N/A Accession Number: [id number] Interpretation LEFT FOOT 2 VIEWS 07/23/2007 Clinical [...] AMK Procedure Note Provider, Historical - 07/23/2007 [address] [address] [place], [place] [address] Admit Date: 07/23/2007 BISHOP LANDRY Sex: F Admit Prov: SCOOTER WOOD Date:1965 Primary Care Prov: SCOOETR WOOD CMRN: [id number] Room: [facility] SSN: [id number] IMAGING SERVICES Ordering Prov: N/A Interpretation LEFT [...] AM CDT Narrative 07/23/2007 9:49 AM CDT [address] [address] Admit Date: 07/23/2007 BISHOP LANDRY Sex: F Admit Prov: SCOOTER WOOD Date: 1965 Primary Care Prov: SCOOTER WOOD CMRN: [id number] [facility] SS[facility]: [id number] IMAGING SERVICES Ordering Prov: N/A Accession Number: [id number] Interpretation RIGHT ANKLE 2 VIEWS 07/23/2007 History: [...] AMK Procedure Note Provider, Historical - 07/23/2007 [facility] [address] [place], [place] [address] Admit Date: 07/23/2007 BISHOP LANDRY Sex: F Admit Prov: SCOOTER WOOD Date:1965 Primary Care Prov: SCOOTER WOOD CMRN: [id number] Room: [facility] SSN: [id number] IMAGING SERVICES Ordering Prov: N/A Interpretation RIGHT [...] AM CDT Narrative 07/23/2007 9:49 AM CDT [address] [address] [place], [place] [address] Admit Date: 07/23/2007 BISHOP LANDRY Sex: F Admit Prov: SCOOTER WOOD Date: 1965 Primary Care Prov: SCOOTER WOOD CMRN: [id number] Room: [facility] SSN: [id number] IMAGING SERVICES Ordering Prov: N/A Accession Number: [id number] Interpretation LEFT ANKLE 2 VIEWS 07/23/2007 Clinical [...] AMK Procedure Note Provider, Historical - 07/23/2007 [address] [address] [place], [place] [address] Admit Date: 07/23/2007 BISHOP LANDRY Sex: F Admit Prov: SCOOTER WOOD Date:1965 Primary Care Prov: SCOOTER WOOD CMRN: [id number] Room: [facility] SSN: [id number] IMAGING SERVICES Ordering Prov: N/A Interpretation LEFT [...] unspecified documented in this encounter Care Teams Telemetry Registered Nurse Relationship Specialty Start Date End Date Jt Zamora MD [address] [place] [phone] PCP - General Family Practice 12/17/11 documented as of this encounter
--- OUTSIDE RECORDS SUMMARY | 2024-10-27 09:44 | XMS_ITS | Clinical Summary ---
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
--- OUTSIDE RECORDS SUMMARY | 2024-10-27 09:44 | XMS_ITS | Encounter Summary ---
Author Organization [facility] Address 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 [address], [place] [address] Patient: BISHOP LANDRY : 1965 Procedure Date: 10/10/2008 Accession Date: 10/10/2008 Case No: [id number] Ordering Dr: KIRBY BRAMBILA Case types AW, BW, FW, NW and SH are performed by [facility] [place], [place] SURGICAL PATHOLOGY & NON-GYNECOLOGIC CYTOPATHOLOGY REPORT [...] 12:32 pm Microscopic: Received are slides labeled [id number], Bishop Landry. Sections of small bowel contain four fragments of small intestinal mucosa showing no significant histopathologic abnormalities. There is no significant increase in intraepithelial or lamina propria inflammation. Villous architecture appears preserved, without evidence of villous blunting. There is no evidence of active inflammation, granulomas, or foveolar metaplasia. [facility] 10.11.2008 10:12 am Staging Form: No. ELECTRONIC SIGNATURE FOR LIANA TITUS M.D.- 10/11/08 03:24 pm INTERFACE SYSTEM 10/10/2008 10:2 4 AM CDT Kirby Brambila MD PATHOLOGY/CYTOLOGY ORDERABLES Final Result INTERFACE SYSTEM Refer to clinic/hospital department * POC , URINE (10/10/2008 7:43 AM CDT) , URINE POC Negative Negative [facility] 10/10/2008 7:43 AM CDT 10/10/2008 7:43 AM CDT Kirby Brambila MD POINT OF CARE TESTING Final R esult INTERFACE SYSTEM Refer to clinic/hospital department [facility] CLIA# [id number] [address] [place] [address] documented in this encounter Visit Diagnoses Diagnosis Heartburn Diarrhea Flatulence, eructation, and gas pain documented in this encounter Care Teams Timber Sizer Relationship Specialty Start Date End Date Jt Zamora MD [facility] [place] [address] PCP - General Family Practice 12/17/11 documented as of this encounter
--- OUTSIDE RECORDS SUMMARY | 2024-10-27 09:44 | XMS_ITS | Referral Summary ---
Author Organization [facility] [address] [facility] [address] Address [address] [place] [address] Care Team Providers Care Stockroom Worker Name Role Phone Soham Arnold MD Unavailable [phone] Jeaneth Funez MD Unavailable [phone] Walt Shetty MD Unavailable [phone] Jaime Cleaning MD Primary Care Provider [phone] Encounters Date Type Department Care Team Description 10/11/2024 8:30 AM CDT Office Visit [facility] Cardiology at [address] [place] [address] Javier Melvin MD Coronary artery disease involving nulato coronary artery of nulato heart without angina pectoris (Primary Dx); Status post insertion of drug eluting coronary artery stent from Last 3 Months Allergies Active Allergy [...] (40 mg total) by mouth daily Active icosapent ethyl (VASCEPA) 1 gram capsule [...] (20 mg total) by mouth daily Active cyclobenzaprin e (FLEXERIL) 10 mg tablet Take 1 tablet (10 mg total) by mouth 3 (three) times a day as needed for muscle spasms Active ergocalciferol , vitamin D2, 50 mcg (2,000 unit) capsule [...] mg total) by mouth daily Active fluticasone prp-sod.chl,bi carb 50 mcg- 0.9 % kit,spray suspension and spray Administer into affected nostril(s) Active hydroCHLOROthi azide (HYDRODIURIL) 25 mg tablet Take 1 tablet (25 mg total) by mouth daily Active fluticasone furoate-vilant Rocky (BREO ELLIPTA) 100-25 mcg/dose diskus inhaler Inhale 1 puff daily Rinse mouth with water after use. Do not swallow. Active dilTIAZem CD 240 mg 24 hr capsule Take 1 capsule (240 mg total) by mouth daily [address] (CYMBALTA) 30 mg capsule Take 1 capsule (30 mg total) by mouth daily 5 Active magnesium oxide 400 mg magnesium capsule Take by mouth Active Glyxambi 10-5 mg tablet Take 1 tablet by mouth daily 5 Active metoprolol XL (TOPROL-XL) 50 mg extended release tablet Take 1 tablet (50 mg total) by mouth daily 5 Active metoprolol (LOPRESSOR) 25 mg tablet Take 1 tablet (25 mg total) by mouth 2 (two) times a day 10/12/19 25 Discontinu ed(Therapy completed) Active Problems Problem Noted Date Diagnosed Date Status post insertion of drug eluting coronary a rtery stent 05/21/2024 Essential hypertension 09/16/2023 Coronary artery disease invo lving nulato coronary artery of nulato heart without angina pectoris 09/16/2023 Morbid obesity [...] symptoms. Encouraged her to return to her housekeeping staff for additional review of her facial redness [...] history of psoriasis on her elbows. Saw housekeeping staff in the past who provided topical agents with resolution of skin rashes. 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 Gender Identity Not on file Sexual Orientation Not on file Last Filed Vital Signs Vital Sign Reading Time Taken Comments Blood Pressure 136/82 10/11/2024 8:31 AM CDT Pulse 84 10/11/2024 8:31 AM CDT Temperature - - Respiratory Rate - - Oxygen Saturation 94% 10/11/2024 8:31 AM CDT Inhaled Oxygen Concentration - - Weight 107.5 kg (237 lb) 10/11/2024 8:31 AM CDT Height 162.6 cm (5' 4) 10/11/2024 8:31 AM CDT Body Mass Index 40.68 10/11/2024 8:31 AM CDT Plan of Treatment Not on file Procedures Procedure Name Priority Date/Time Associated Diagnosis Comments HEPATITIS PANEL, ACUTE Routine 12/06/2021 11:26 AM CDT from Last 3 Months or Most Recently Relevant to Health Maintenance Results * Hepatitis panel, acute (12/06/2021 11:26 AM CDT) Hep A IgM NON-REACTI VE NON-REACT SHERINE [facility] Comment: For additional information, please refer to http://[employer]/faq/VXN504 (This link is being provided for informational/ [...] a test for HCV RNA (test code 27167) is suggested. For additional information please refer to http://[employer]/faq/TLL98o7 (This link is being provided for informational/ educational purposes only.) 12/06/2021 11:2 6 AM CDT 12/06/2021 11:28 AM CDT Walt Shetty MD LAB MICROBIOLOGY - GENERAL ORD ERABLES Final Result [facility] [address] [place] [address] from Last 3 Months or Most Recently Relevant to Health Maintenance Insurance [facility] [place] Care Teams Stockroom Worker Relationship Specialty Start Date End Date Jaime Cleaning MD [address] [facility] [address] [place] [address] PCP - General Internal Medicine 11/01/21 Soham Arnold MD [address] [place] [address] [address] Referring Physician Cardiovascular Disease 02/03/19 Jeaneth Funez MD [address] [place] [address] Referring Physician Dermatology 03/10/19 Walt Shetty MD [address] [place] [address] Consulting Physician Rheumatology 11/01/21
--- OUTSIDE RECORDS SUMMARY | 2024-10-27 09:44 | XMS_ITS | Patient Health Record ---
Author Organization [facility] Address [address] [facility] [address] [place] [address] Care Team Providers Care Laser/Electro Optics Technician Name Role Phone Jt Zamora MD Primary Care Provider Kirby Jeronimo Unavailable [phone] Soham Arnold MD Unavailable Unavailable Allergies Allergen [...] Problem Status W/U Status Risk Notes Problem [id number] Abnormal MRI of abdomen (R93.5) Active confirmed Plan Of Treatment Pending Test Test Name Order Date Initiate SIBO 08/08/2016 MRI Abdomen with Contrast 10/06/2018 Insurance Providers Payer Name Payer Address Payer Phone Subscriber Number Group Number Insured Name Patient Relationship to Insured Coverage Start Date Coverage End Date Blue Access Choice PPO E2 [address] [place] [address] [id number] Sagar Evans Spouse - patient is the [...]
--- OUTSIDE RECORDS SUMMARY | 2024-10-27 09:44 | XMS_ITS | Clinical Summary ---
Author Organization [facility] [address] Address [address] [place] [address] Care Team Providers Care Air Intelligence Officer Name Role Phone Soham Arnold MD Unavailable [phone] Jeaneth Funez MD Unavailable [phone] Walt Shetty MD Unavailable [phone] Jaime Cleaning MD Primary Care Provider [phone] Allergies Active Allergy Reactions Criticality Noted Date [...] hypertension 09/16/2023 Coronary artery disease invo lving timbi-sha shoshone coronary artery of timbi-sha shoshone heart without angina pectoris 09/16/2023 Morbid obesity [...] symptoms. Encouraged her to return to her corsetier for additional review of her facial redness [...] history of psoriasis on her elbows. Saw corsetier in the past who provided topical agents with resolution of skin rashes. 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 Impaired glucose tolerance 04/27/2013 Standard chest x-ray abnormal 08/19/2012 Encounters Date Type Department Care Team Description 10/11/2024 8:30 AM CDT Office Visit [facility] Cardiology at [address] [place] [address] Javier Melvin MD Coronary artery disease involving timbi-sha shoshone coronary artery of timbi-sha shoshone heart without angina pectoris (Primary Dx); Status post insertion of drug eluting coronary artery stent from Last 3 Months Surgical History Surgery Date Site/Laterality Comments LA TOTAL ABDOMINAL HYSTERECT W/WO RMVL TUBE OVARY Hysterectomy - (Added by TW Conv) BREAST SURGERY Breast Surgery Enlargement Procedure Bilateral - (Added by TW Conv) LA TONSILLECTOMY PRIMARY/SECONDARY <AGE 12 Tonsillectomy - (Added [...] or subcutaneous tissue History of urticaria - (package dyer jhon with negative allergy testing). 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 For additional information please refer to http://[employer]/faq/LSQ72o0 (This link is being provided for informational/ educational purposes only.) 12/06/2021 11:2 6 AM CDT 12/06/2021 11:28 AM CDT us Walt Shetty MD LAB MICROBIOLOGY - GENERAL ORD ERABLES Final Result [facility] [id number] [id number] from Last 3 Months or Most Recently Relevant to Health Maintenance [place] Care Teams Air Intelligence Officer Relationship Specialty Start Date End Date Jaime Cleaning MD [address] [facility] [address] [place] [address] PCP - General Internal Medicine 11/01/21 Soham Arnold MD [address] [address] Referring Physician Cardiovascular Disease 02/03/19 Jeaneth Funez MD [address] [place] [address] Referring Physician Dermatology 03/10/19 Walt Shetty MD [address] [place] [address] Consulting Physician Rheumatology 11/01/21
--- OUTSIDE RECORDS SUMMARY | 2024-10-27 09:44 | XMS_ITS | Encounter Summary ---
Author Organization [facility] Address [address] [facility] [place] [address] Care Team Providers Care Director Sales Training Name Role Phone Jt Zamora MD Primary Care Provider [phone] Encounter Details Date Type Department Care Team (Late st Contact Info) Description 09/18/2018 Lab Requisition [facility] [address] [facility], [place] [phone] Jeaneth Funez MD [address] [facility] 3 [place] [address] Social History Tobacco Use Types Packs/Day Years Used Date Smoking Tobacco: Every Day Cigarettes Smokeless Tobacco: Never Alcohol Use Standard Drinks/Week Comments Yes 0 (1 standard drink = 0.6 oz pur e alcohol) 2 - 3 times a week Comments Unknown Sex and Gender Information Value Date Recorded Sex Assigned at Not on file 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 Gender Identity Not on file Sexual Orientation Not on file documented as of this encounter Plan of Treatment Not on file documented as of this encounter Procedures Procedure Name Priority Date/Time Associated Diagnosis Comments DERMATOPATHOLOGY Routine 09/17/2018 12:0 0 AM CDT documented in this encounter Results * DERMATOPATHOLOGY (09/17/2018 12:00 AM CDT) Case Report Dermatopathology Report Case: [id number] Authorizing Provider: Jeaneth Funez MD Collected: 09/17/2018 12:00 AM Pathologist: Radha Lara MD Received: 09/18/2018 06:36 AM Specimen: Skin, left cheek 9 6:00 PM T DERMATOPATHOLOGY LABORATORY Final Diagnosis Specimen A. SKIN, left cheek: BENIGN VERRUCOUS KERATOSIS, INFLAMED (L82.1) 9 6:00 PM T DERMATOPATHOLOGY LABORATORY at 1800 CDT Clinical History R/O BCC hx of PSO crusted papule. 6:00 PM CDT DERMATOPATHOLOGY LABORATORY Gross Description Specimen A: Received is one formalin filled container labeled with the patient's name and designated left cheek. The specimen consists of a shave measuring [id number]. Jar 0. 6:00 PM T DERMATOPATHOLOGY LABORATORY [...] characteristic determined by the Dermatopathology Laboratory at [facility], directed by Dr. Luke Lara. These tests need not be, and therefore are not, approved by the [place] Food and Drug Administration. The tests are used for clinical purposes. Billing Codes Specimen Charges Stain Charges 28608 1 9 6:00 PM CDT DERMATOPATHOLOGY LABORATORY Embedded Images 6:00 PM CDT DERMATOPATHOLOGY LABORATORY Pathology/Cytolog y TISSUE SPECIMEN FROM SKIN / Unknown 09/17/2018 09/18/2018 6:36 AM CDT us Jeaneth Funez MD LAB - PATHOLOGY/CYTOLOGY ORD ERABLES Final Result DERMATOPATHOLOGY LABORATORY [facility] - Department of Dermatology [address] [facility], 5th Floor Lab B [address] [phone] documented in this encounter Visit Diagnoses Not on filedocumented in this encounter Care Teams Director Sales Training Relationship Specialty Start Date End Date Jt Zamora MD PCP - General 04/12/08 documented as of this encounter
--- OUTSIDE RECORDS SUMMARY | 2024-10-27 09:44 | XMS_ITS | Clinical Summary ---
Author Organization [facility] Address [address] [place] [address] Care Team Providers Care Heavy Forger Helper Name Role Phone Jt Zamora MD Primary Care Provider [phone] Source Comments [facility],non-owned Affiliates and Associated Physician Practices is amultiple site organization consisting of ambulatory clinics and hospital sitesin [place], [place], [place] and [place]. This disclosure is being madepursuant to the Care Everywhere program and may not contain all information available regarding this patient. 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 Gender Identity Not on file Sexual Orientation Not on file Last Filed Vital Signs Vital Sign Reading Time Taken Comments Blood Pressure 118/59 05/26/2018 10:57 AM BIOTECH PRODUCTION SPECIALIST Pulse 83 05/26/2018 10:57 AM BIOTECH PRODUCTION SPECIALIST Temperature 36.5 C (97.7 F) 05/26/2018 10:57 AM BIOTECH PRODUCTION SPECIALIST Respiratory Rate 20 04/16/2018 2:00 PM BIOTECH PRODUCTION SPECIALIST Oxygen Saturation 95% 04/16/2018 2:00 PM BIOTECH PRODUCTION SPECIALIST Inhaled Oxygen Concentration - - Weight 109.4 kg (241 lb 1.6 oz) 019 10:57 AM BIOTECH PRODUCTION SPECIALIST Height 162.6 cm (5' 4) 05/26/2018 10:5 7 AM BIOTECH PRODUCTION SPECIALIST Body Mass Index 41.38 05/26/2018 10:57 AM BIOTECH PRODUCTION SPECIALIST Plan of Treatment Health Maintenance Due Date [...] COMPREHENSIVE METABOLIC PANEL Routine 03/25/2018 8:58 AM BIOTECH PRODUCTION SPECIALIST Elevated liver enzymes HEPATITIS C ANTIBODY Routine 01/28/2013 10:30 AM CDT from Last 3 Months or Most Recently Relevant to Health Maintenance Results * (ABNORMAL) COMPREHENSIVE METABOLIC PANEL (03/25/2018 8:58 AM BIOTECH PRODUCTION SPECIALIST) Glucose 112(H) 65 - 99 mg/dL [facility] [...] approximately 13% higher for people identified as -Bermudian. eGFR by MDRD 110 > OR = [...] 29 U/L [facility] Comment: Test Performed at: [facility] [id number] [place] [address] LAURITA RAMIREZ DO,MPH Blood BLOOD SPECIMEN / Unknown 03/25/2018 8:58 AM BIOTECH PRODUCTION SPECIALIST 03/25/2018 8:59 AM BIOTECH PRODUCTION SPECIALIST us Darwin Mackenzie MD LAB - CHEMISTRY ORDERABLES Yumiko christian Result [facility] [address] [place] [address] * HEPATITIS C ANTIBODY (01/28/2013 10:30 AM CDT) [facility] Hepatitis C Antibody NON-REACTI VE NON-REACT SHERINE [facility] ([facility]) Signal/Cutoff 0.03 <1.00 [facility] ([facility]) Comment: Test Performed at: [facility] [place] [address] [place] [address] LAURITA RAMIREZ DO,MPH 01/28/2013 10:3 0 AM CDT 01/28/2013 10:31 AM CDT us Kelly Caraballo MD LAB - CHEMISTRY OR DERABLES Edited Result - Final [facility] (U) [id number] from Last 3 Months or Most Recently Relevant to Health Maintenance [place] [address] [place] [address] ANTHEM Care Teams Heavy Forger Helper Relationship Specialty Start Date End Date Jt Zamora MD PCP - General 04/12/08
[2024-10-27 09:46] LABS: Add Urine Microscopic? NO; Appearance Urine Clear (Clear); Glucose Urine UA 3+ mg/dL (Negative); Leukocyte Esterase Ur Negative LEU/UL (Negative); Nitrate Urine Negative (Negative); Specific Grav Ur 1.009 (1.001-1.035)
== END 2024-10-27 09:28 | disposition home or self-care (01) ==
PROVIDERS: PCP Internal Medicine; Visit Provider Internal Medicine
DX: I51.7 Cardiomegaly (principal); J81.0 Acute pulmonary edema; R50.9 Fever, unspecified; R35.0 Frequency of micturition
CPT/HCPCS: 36415; 71046; 81003; 85025

== ENCOUNTER 2024-11-06 08:12 | Outpatient (CLI) | payer BC, SELFPAY ==
--- NOTE | ~2024-11-06 | MM_ITS ---
EXAMINATION: MM screening sloan BI w sita HISTORY: Screening TECHNIQUE: Craniocaudal and mediolateral oblique 3-D tomosynthesis images were obtained and synthetic 2-D images were generated. CAD analysis was submitted and interpreted. COMPARISON: Comparison to multiple prior studies sequentially, with oldest reviewed study dated 11/14. BREAST PARENCHYMAL COMPOSITION: Not dense: There are scattered areas of fibroglandular density. FINDINGS: There is no evidence of suspicious mass, calcification, or architectural distortion to sugg est malignancy in either breast. There has been no suspicious interval change. IMPRESSION: 1. No mammographic evidence of malignancy. 2. Recommend routine screening mammography in one year. BI-RADS Category 1: Negative Reviewed, dictated and finalized at location []
--- OUTSIDE RECORDS SUMMARY | 2024-11-06 08:16 | XMS_ITS | Encounter Summary ---
Author Organization [facility] Address [address] [facility] [place] [address] Care Team Providers Care Signal And Communications Maintainer Name Role Phone Jt Zamora MD Primary Care Provider [phone] Encounter Details Date Type Department Care Team (Late st Contact Info) Description 04/02/2018 Lab Requisition [facility] [address] [facility] [place] [phone] Jeaneth Funez MD [address] [facility] [address] [place] [address] Social History Tobacco Use Types Packs/Day Years Used Date Smoking Tobacco: Every Day Cigarettes Smokeless Tobacco: Never Alcohol Use Standard Drinks/Week Comments Yes 0 (1 standard drink = 0.6 oz pur e alcohol) 3 to 4 times a week Comments Unknown Sex and Gender Information Value Date Recorded Sex Assigned at Not on file 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 Gender Identity Not on file Sexual Orientation Not on file documented as of this encounter Plan of Treatment Not on file documented as of this encounter Procedures Procedure Name Priority Date/Time Associated Diagnosis Comments DERMATOPATH TECHNICAL REPORT Routine 04/01/2018 12:00 AM CARPENTERS HELPER documented in this encounter Results * DERMATOPATH TECHNICAL REPORT (04/01/2018 12:00 AM CARPENTERS HELPER) Case Report Dermatopathology Report Case: [id number] Authorizing Provider: Jeaneth Funez MD Collected: 04/01/2018 12:00 AM Pathologist: Radha Lara MD Received: 04/02/2018 07:23 AM Specimen: Skin, right hand 12:18 PM [facility] DERMATOPATHOLOGY LABORATORY Addendum 1 At the request of the diagnosing physician, the technical component for PAS and Colloidal Iron was performed by [facility] Dermatopathology Laboratory. 12:18 PM [facility] DERMATOPATHOLOGY LABORATORY Addendum electronically signed by Radha Lara MD on 04/07/2018 at 1218 CARPENTERS HELPER Clinical History PSO vs CTD. [facility] scaly patches. 12:18 PM [facility] DERMATOPATHOLOGY LABORATORY Gross Description Specimen A: Received is one formalin filled container labeled with the patient's name and designated right hand. The specimen consists of a punch measuring [id number], bisected. Jar 0. [facility] Dermatopathology Laboratory performed the technical component only. 12:18 PM [facility] DERMATOPATHOLOGY LABORATORY Embedded Images 12:18 PM [facility] DERMATOPATHOLOGY LABORATORY DISCLAIMER An external and internal positive and negative controls are appropriate for the histochemical, immunohistochemical and immunofluorescence stain(s) in this case (if any), except where stated explicitly. The performance characteristics of the stain(s) cited in this report were developed and its performance characteristic determined by the Dermatopathology Laboratory at [facility]. These tests need not be, and therefore are not, approved by the [place] Food and Drug Administration. The tests are used for clinical purposes. 12:18 PM [facility] DERMATOPATHOLOGY LABORATORY at 1739 CARPENTERS HELPER Pathology/Cytolog y TISSUE SPECIMEN FROM SKIN / Unknown 04/01/2018 04/02/2018 7:23 AM CARPENTERS HELPER us Jeaneth Funez MD LAB - PATHOLOGY/CYTOLOGY ORD ERABLES Edited Result - Final DERMATOPATHOLOGY LABORATORY [facility] - Department of Dermatology [address] [facility], 5th [place] [address], [facility] [phone] documented in this encounter Visit Diagnoses Not on filedocumented in this encounter Care Teams Signal And Communications Maintainer Relationship Specialty Start Date End Date Jt Zamora MD PCP - General 04/12/08 documented as of this encounter
--- OUTSIDE RECORDS SUMMARY | 2024-11-06 08:16 | XMS_ITS | Continuity of Care Document ---
Author Organization [facility] Address [address] [place] [address] [address] [place] [address] Phone Care Team Providers Care Electrical Engineering Technologist Name Role Phone Mehnaz Velazquez Unavailable Unavailable Advance Directives Directive Yes / No Effective Date File Name No Information Encounters Encounter Description Practice Location Reason(s) For Visit Diagnoses Date Provider Providers Copied on Encounter [facility], [address] [place] [address] [address], [place], [place], [id number], [place] tel:[phone] [facility] No Information Mar-0 8-200 5 Caroline Darby. [address] , [address], [place], [address], [place]. tel:[phone] Family History Family Member Type Diagnosis Age At Onset No Information Payers Payer name Insurance type Covered democrat ID Authoriza tion(s) No Information Social History [...]
--- OUTSIDE RECORDS SUMMARY | 2024-11-06 08:16 | XMS_ITS | Encounter Summary ---
Author Organization [email or web address] [facility] Address [address] [place] [address] Care Team Providers Care Tubing Assembler Name Role Phone Jt Zamora MD Primary Care Provider [phone] Encounter Details Date Type Department Care Team (Latest Contact Info) Description 07/23/2007 Outpatient Historical HIS [facility] Scooter Del Cid MD Unspecified Arthropathy, Site Unspecified Social History Tobacco Use Types Packs/Day Years Used Date Smoking Tobacco: Never Assessed Comments Unknown Sex and Gender Information Value Date Recorded Sex Assigned at Not on file Legal Sex Female 5:32 AM WIRE STITCHER Gender Identity Not on file Sexual Orientation [...] CYCLIC CITRULLINATED PEPTIDE AB IGG <20 Units [facility] Comment: REFERENCE RANGE: NEGATIVE: <20 WEAK POSITIVE: 20-39 MODERATE/STRONG POSITIVE: 40-59 STRONG POSITIVE: >59 Lab test performed by: [id number] [place] [phone] LAURITA GARCIA MD Blood specimen (specimen) 07/23/2007 7:47 AM CDT 07/23/2007 9:21 AM CDT Scooter Wood MD CHEMISTRY ORDERABLES Final Resu lt Performing Organization Address [facility] Co de Phone Number [facility] [address] [place] [address] * ALDOLASE (07/23/2007 7:47 AM CDT) [facility] ALDOLASE 3.3 < OR = 8.1 U/L [facility] Comment: Lab test performed by: [employer] [id number] [address] [employer] [place] [phone] LAURITA GARCIA MD Blood specimen (specimen) 07/23/2007 7:47 AM CDT 07/23/2007 8:06 AM CDT Scooter Wood MD CHEMISTRY ORDERABLES Final Resu lt Performing Organization Address City/[facility] Co de Phone Number [facility] [address] [place] [address] * RHEUMATOID FACTOR (07/23/2007 7:47 AM CDT) Pathologist [facility] RHEUMATOID FACTOR <6.0 0.0 - 13.9 IU/mL [facility] Blood specimen (specimen) 07/23/2007 7:47 AM CDT 07/23/2007 8:04 AM CDT us Scootre Wood MD CHEMISTRY ORDERABLES Final Resu lt Performing Organization Address [facility] Co de Phone Number [facility] [address] [place] [address] * COMPLEMENT C4 (07/23/2007 7:47 AM CDT) COMPLEMENT C4 20 10 - 40 mg/dL [facility] Blood specimen (specimen) 07/23/2007 7:47 AM CDT 07/23/2007 8:04 AM CDT us Scooter Wood MD CHEMISTRY ORDERABLES Final Resu lt Performing Organization Address [facility] Phone Number [facility] [address] [place] [address] * COMPLEMENT C3 (07/23/2007 7:47 AM CDT) COMPLEMENT C3 158 90 - 180 mg/dL [facility] Blood specimen (specimen) 07/23/2007 7:47 AM CDT 07/23/2007 8:04 AM CDT us Scooter Wood MD CHEMISTRY ORDERABLES Final Resu lt Performing Organization Address [facility] de Phone Number [facility] [address] [place] [address] * LUZ PANEL (07/23/2007 7:47 AM CDT) LUZ SCREEN NEGATIVE NEGATIVE [facility] Comment: Lab test performed by: [employer] [id number] [phone] LAURITA GARCIA MD DNA AUTOABS DOUBLE STRANDED 4 IU/mL [facility] Comment: IU/mL INTERPRETATION ===== < OR = 4 NEGATIVE 5 - 9 INDETERMINATE > OR = 10 POSITIVE Lab test performed by: [facility] [id number] [place] [address] LAURITA GARCIA MD SCLERODERMA AB SCL 70 <1.0 NEG <1.0 NEG Index [facility] Comment: Lab test performed by: [employer] [address] [place] [phone] LAURITA GARCIA MD SJOGRENS ABS (SSB) <1.0 NEG <1.0 NEG Index [facility] Comment: Lab test performed by: [employer] [address] [place] [phone] LAURITA GARCIA MD RUSS ABS, SM/YOUTH CARE SPECIALIST AB <1.0 NEG <1.0 NEG Index [facility] Comment: Lab test performed by: [employer] [address] [place] [phone] LAURITA GARCIA MD RUSS ABS, SM AB <1.0 NEG <1.0 NEG Index [facility] SJOGRENS ABS (SSA) <1.0 NEG <1.0 NEG Index [facility] Blood specimen (specimen) 07/23/2007 7:47 AM CDT 07/23/2007 8:04 AM CDT Scooter Wood MD CHEMISTRY ORDERABLES Edited [facility] [address] [place] [address] * (ABNORMAL) HLA B27 (07/23/2007 7:47 AM CDT) HLA B27 DETECTED(A ) [facility] Comment: THE HLA B27 ANTIGEN IS PRESENT IN 9% OF AND 4% OF BLACK POPULATIONS. THIS ANTIGEN IS SEEN WITH A FREQUENCY OF 90% IN PATIENTS WITH ANKYLOSING SPONDYLITIS AND A FREQUENCY OF 80% IN PATIENTS WITH REITERS DISEASE. Lab test performed by: [employer] [phone] LAURITA GARCIA MD Blood specimen (specimen) 07/23/2007 7:47 AM CDT 07/23/2007 8:06 AM CDT us Scooter Wood MD CHEMISTRY ORDERABLES Final Resu lt Performing Organization Address [facility] Phone Number [facility] [address] [place] [address] * HEPATITIS C ANTIBODY (07/23/2007 7:47 AM CDT) HEPATITIS C AB NON-REACTI VE NON-REACT SHERINE [facility] SIGNAL TO CUT OFF 0.05 <1.00 [facility] Comment: Lab test performed by: [employer] [id number] [address] [phone] LAURITA GARCIA MD Blood specimen (specimen) 07/23/2007 7:47 AM CDT 07/23/2007 8:04 AM CDT us Scooter Wood MD CHEMISTRY ORDERABLES Final Resu lt Performing Organization Address [facility] de Phone Number [facility] [address] [place] [address] * HEPATITIS B SURFACE AB (07/23/2007 7:47 AM CDT) HEPATITIS B SURFACE AB <5 mIU/mL [facility] Comment: PATIENT DOES NOT HAVE IMMUNITY TO HEPATITIS B VIRUS. Lab test performed by: [employer] [id number] [address] [phone] LAURITA GARCIA MD Blood specimen (specimen) 07/23/2007 7:47 AM CDT 07/23/2007 8:06 AM CDT us Scooter Wood MD CHEMISTRY ORDERABLES Final Resu lt Performing Organization Address [facility]/ZIP Co de Phone Number [facility] [address] [place] [address] * TSH (07/23/2007 7:47 AM CDT) [facility] TSH 1.07 0.27 - 4.20 uU/mL [facility] Blood specimen (specimen) 07/23/2007 7:47 AM CDT 07/23/2007 8:04 AM CDT Scooter Wood MD CHEMISTRY ORDERABLES Final Resu lt Performing Organization Address [facility] Co de Phone Number [facility] [address] [place] [address] * (ABNORMAL) LACTATE DEHYDROGENASE (07/23/2007 7:47 AM CDT) [facility] LD (LACTATE DEHYDROGENASE) 129(L) 135 - 214 U/L [facility] Blood specimen (specimen) 07/23/2007 7:47 AM CDT 07/23/2007 8:04 AM CDT Scooter Wood MD CHEMISTRY ORDERABLES Final Resu lt Performing Organization Address [facility] Co de Phone Number [facility] [address] [place] [address] * (ABNORMAL) CBC WITH DIFFERENTIAL (07/23/2007 7:47 AM CDT) [facility] HEMOGLOBIN 15.4(H) 11.8 - 14.8 g/dL [facility] RDW 13.8 11.5 - 14.5 % [facility] WBC 9.4 4.0 - 9.8 K/uL [facility] MCH 32.4 27.2 - 32.6 pg [facility] MPV 12.1 9.3 - 12.4 fL [facility] HEMATOCRIT 45.2(H) 35.5 - 44.0 % [facility] RDW-STDEV 47.6 37.1 - 48.7 fL [facility] RBC 4.75 3.90 - 4.90 M/uL [facility] MCHC 34.1 31.5 - 35.5 % [facility] MCV 95.2 82.0 - 99.0 fL [facility] PLATELETS 215 140 - 350 K/uL [facility] EOSINOPHILS 2 0 - 7 % [facility] EOSINOPHIL ABSOLUTE 0.22 0.00 - 0.70 K/uL [facility] LYMPHOCYTES 23 16 - 45 % [facility] LYMPHOCYTE ABSOLUTE 2.15 0.70 - 4.50 K/uL [facility] BASOPHILS 0 0 - 2 % [facility] BASOPHILS ABSOLUTE 0.03 0.00 - 0.20 K/uL [facility] MONOCYTES 4 3 - 13 % [facility] MONOCYTE ABSOLUTE 0.42 0.10 - 1.30 K/uL [facility] NEUTROPHILS 70 45 - 70 % [facility] NEUTROPHIL ABSOLUTE 6.62 1.90 - 7.00 K/uL [facility] Blood specimen (specimen) 07/23/2007 7:47 AM CDT 07/23/2007 8:29 AM CDT us Scooter Wood MD HEMATOLOGY ORDERABLES Edited INTERFACE SYSTEM Refer to clinic/hospital department [facility] [address] [place] [address] * CK (07/23/2007 7:47 AM CDT) CK 50 10 - 145 U/L [facility] Blood specimen (specimen) 07/23/2007 7:47 AM CDT 07/23/2007 8:04 AM CDT us Scooter Wood MD CHEMISTRY ORDERABLES Final Resu lt [facility] [address] [place] [address] * (ABNORMAL) COMPREHENSIVE METABOLIC PANEL (07/23/2007 7:47 AM CDT) CREATININE 0.52 0.51 - 0.95 mg/dL [facility] ALT 17 0 - 31 U/L [facility] SODIUM 135 135 - 145 mmol/L [facility] ALKALINE PHOSPHATASE 50 35 - 104 U/L [facility] CO2 23 22 - 30 mmol/L [facility] BILIRUBIN TOTAL 0.3 0.2 - 1.0 mg/dL [facility] POTASSIUM 4.1 3.5 - 4.9 mmol/L [facility] TOTAL PROTEIN 7.7 6.3 - 8.6 g/dL [facility] GLUCOSE 110(H) 65 - 99 mg/dL [facility] AST 17 12 - 32 U/L [facility] BUN 13 6 - 20 mg/dL [facility] CALCIUM 8.9 8.4 - 10.2 mg/dL [facility] ALBUMIN 4.4 3.4 - 4.8 g/dL [facility] CHLORIDE 102 96 - 108 mmol/L [facility] GFR, >60 >=60 mL/min/1. 7 sq meter [facility] GFR >60 >=60 mL/min/1. 7 sq meter [facility] Comment: Estimated GFR rate interpretative information for both Americans and non- Americans is available on the [facility]an[facility] at: [email or web address] Select: Lab Policies and Procedures Select: Reference Ranges - GFR Blood specimen (specimen) 07/23/2007 7:47 AM CDT 07/23/2007 8:04 AM CDT us Scooter Wood MD CHEMISTRY ORDERABLES Edited Performing Organization Address [facility] de Phone Number [facility] [address] [place] [address] * C-REACTIVE PROTEIN (07/23/2007 7:47 AM CDT) Pathologist [facility] CRP 0.3 0.0 - 0.8 mg/dL [facility] Blood specimen (specimen) 07/23/2007 7:47 AM CDT 07/23/2007 8:04 AM CDT us Scootre Wood MD CHEMISTRY ORDERABLES Final Resu lt Performing Organization Address [facility] de Phone Number [facility] [address] [place] [address] * SEDIMENTATION RATE (07/23/2007 7:47 AM CDT) Pathologist [facility] ESR (SEDIMENTATION RATE) 6 0 - 20 mm/hr [facility] Blood specimen (specimen) 07/23/2007 7:47 AM CDT 07/23/2007 8:29 AM CDT us Scooter Wood MD HEMATOLOGY ORDERABLES Final Res ult Performing Organization Address [facility] de Phone Number [facility] [address] [place] [address] * URINALYSIS (07/23/2007 7:47 AM CDT) CLARITY UA Clear Clear [facility] BILIRUBIN UA Negative Negative [facility] PROTEIN UA Negative Negative [facility] LEUKOCYTE ESTERASE UA Negative Negative [facility] SPECIFIC GRAVITY UA 1.009 1.001 - 1.035 [facility] GLUCOSE UA Negative Negative [facility] BLOOD UA Negative Negative [facility] COLOR UA Pale Yellow [facility] NITRITE UA Negative Negative [facility] UROBILINOGEN UA <1 <=1 mg/dL [facility] PH UA 5.0 5.0 - 8.0 [facility] KETONES UA Negative Negative [facility] 07/23/2007 7:47 AM CDT 07/23/2007 8:32 AM CDT Scooter Wood MD URINE ORDERABLES Final Result [facility] [address] [place] [address] * XR WRIST 2 VW RIGHT (07/23/2007 7:12 AM CDT) Anatomical Region Laterality Modality Wrist / Hand Other 07/23/2007 7:12 AM CDT Narrative 07/23/2007 9:39 AM CDT [facility] [address] [place], [place] [address] Admit Date: 07/23/2007 BISHOP LANDRY Sex: F Admit Prov: KARELUMUDonya eLung Date: 1965 Primary Care Prov: KARELUMUDonya Leung CMRN: [id number] Room: SYMONE SSN: [id number] IMAGING SERVICES Ordering Prov: N/A Accession Number: [id number] Interpretation RIGHT WRIST TWO VIEWS 07/23/2007 Clinical [...] AMK Procedure Note Provider, Historical - 07/23/[address] [address] Admit Date: 07/23/2007 BISHOP LANDRY Sex: F Admit Prov: KARELSCOOTER Madhu Date:1965 Primary Care Prov: KARELUMUDonya Leung CMRN: [id number] Room: [facility] SSN: [address] [place] [address] IMAGING SERVICES Ordering Prov: N/A Interpretation RIGHT [...] AM CDT Narrative 07/23/2007 9:38 AM CDT [place] [address] [place], [place] [address] Admit Date: 07/23/2007 BISHOP LANDRY Sex: F Admit Prov: SCOOTER WOOD Date: 1965 Primary Care Prov: SCOOTER WOOD CMRN: [id number] Room: [facility]: [id number] IMAGING SERVICES Ordering Prov: N/A Accession Number: [id number] Interpretation LEFT WRIST 2 VIEWS 07/23/2007 History: [...] AMK Procedure Note Provider, Historical - 07/23/2007 [place] [address] [place], [place] [address] Admit Date: 07/23/2007 BISHOP LANDRY Sex: F Admit Prov: SCOOTRE WOOD Date:1965 Primary Care Prov: SCOOTER WOOD CMRN: [id number] Room: [facility] N: [id number] IMAGING SERVICES Ordering Prov: N/A Interpretation LEFT [...] AM CDT Narrative 07/23/2007 9:38 AM CDT [address] [address] Admit Date: 07/23/2007 LANDRY BISHOP Sex: F Admit Prov: SCOOTER WOOD Date: 1965 Primary Care Prov: SCOOTER WOOD CMRN: [id number] Room: [facility] SSN: [id number] IMAGING SERVICES Ordering Prov: N/A Accession Number: [id number] Interpretation RIGHT HAND TWO VIEWS 07/23/2007 Clinical [...] AMK Procedure Note Provider, Historical - 07/23/[address] [place], [place] [address] Admit Date: 07/23/2007 BISHOP LANDRY Sex: F Admit Prov: SCOOTER WOOD Date:1965 Primary Care Prov: SCOOTER WOOD CMRN: [id number] Room: [facility] SSN: [address] [place] [address] IMAGING SERVICES Ordering Prov: N/A Interpretation RIGHT [...] AM CDT Narrative 07/23/2007 9:39 AM CDT [place] [address] [place], [place] [address] Admit Date: 07/23/2007 BISHOP LANDRY Sex: F Admit Prov: SCOOTER WOOD Date: 1965 Primary Care Prov: SCOOTER WOOD CMRN: [id number] Room: [facility] SSN: [address] [place] [address] IMAGING SERVICES Ordering Prov: N/A Accession Number: [id number] Interpretation LEFT HAND TWO VIEWS 07/23/2007 Clinical [...] AMK Procedure Note Provider, Historical - 07/23/2007 [facility] [address] [place], [place] [address] Admit Date: 07/23/2007 BISHOP LANDRY Sex: F Admit Prov: SCOOTER WOOD Date:1965 Primary Care Prov: SCOOTER WOOD CMRN: [id number] Room: SY[facility]ONE SSN: [id number] IMAGING SERVICES Ordering Prov: N/A Interpretation LEFT [...] AM CDT Narrative 07/23/2007 9:49 AM CDT [address] [address] Admit Date: 07/23/2007 BISHOP LANDRY Sex: F Admit Prov: SCOOTER WOOD Date: 1965 Primary Care Prov: SCOOTER WOOD CMRN: [id number] [facility] N: [id number] IMAGING SERVICES Ordering Prov: N/A Accession Number: [id number] Interpretation RIGHT FOOT 2 VIEWS 07/23/2007 History: [...] AMK Procedure Note Provider, Historical - 07/23/[address] [address] Admit Date: 07/23/2007 BISHOP LANDRY Sex: F Admit Prov: SCOOTER WOOD Date:1965 Primary Care Prov: SCOOTER WOOD CMRN: [id number] [facility] N: [id number] IMAGING SERVICES Ordering Prov: N/A Interpretation RIGHT [...] AM CDT Narrative 07/23/2007 9:49 AM CDT [place] [address] [place], [place] [address] Admit Date: 07/23/2007 BISHOP LANDRY Sex: F Admit Prov: SCOOTER WOOD Date: 1965 Primary Care Prov: SCOOTER WOOD CMRN: [id number] Room: [facility] SSN: [id number] IMAGING SERVICES Ordering Prov: N/A Accession Number: [id number] Interpretation LEFT FOOT 2 VIEWS 07/23/2007 Clinical [...] AMK Procedure Note Provider, Historical - 07/23/2007 [place] [address] [place], [place] [address] Admit Date: 07/23/2007 BISHOP LANDRY Sex: F Admit Prov: SCOOTER WOOD Date:1965 Primary Care Prov: SCOOTER WOOD CMRN: [id number] Room: [facility] SSN: [id number] IMAGING SERVICES Ordering Prov: N/A Interpretation LEFT [...] AM CDT Narrative 07/23/2007 9:49 AM CDT [address] [address] Admit Date: 07/23/2007 BISHOP LANDRY Sex: F Admit Prov: SCOOTER WOOD Date: 1965 Primary Care Prov: SCOOTER WOOD CMRN: [id number] [facility] SSN: [id number] IMAGING SERVICES Ordering Prov: N/A Accession Number: [id number] Interpretation RIGHT ANKLE 2 VIEWS 07/23/2007 History: [...] AMK Procedure Note Provider, Historical - 07/23/2007 [facility] [address] [place] [place], [place] [address] Admit Date: 07/23/2007 BISHOP LANDRY Sex: F Admit Prov: SCOOTER WOOD Date:1965 Primary Care Prov: SCOOTER WOOD CMRN: [id number] Room: [facility] SSN: [id number] IMAGING SERVICES Ordering Prov: N/A Interpretation RIGHT [...] AM CDT Narrative 07/23/2007 9:49 AM CDT [place] [address] [place], [place] [address] Admit Date: 07/23/2007 BISHOP LANDRY Sex: F Admit Prov: SCOOTER WOOD Date: 1965 Primary Care Prov: SCOOTER WOOD CMRN: [id number] Room: [facility] SSN: [id number] IMAGING SERVICES Ordering Prov: N/A Accession Number: [id number] Interpretation LEFT ANKLE 2 VIEWS 07/23/2007 Clinical [...] AMK Procedure Note Provider, Historical - 07/23/2007 [place] [address] [place], [place] [address] Admit Date: 07/23/2007 BISHOP LANDRY Sex: F Admit Prov: SCOOTER WOOD Date:1965 Primary Care Prov: SCOOTER WOOD CMRN: [id number] Room: [facility] SSN: [id number] IMAGING SERVICES Ordering Prov: N/A Interpretation LEFT [...] unspecified documented in this encounter Care Teams Tubing Assembler Relationship Specialty Start Date End Date Jt Zamora MD [address] [place] [phone] PCP - General Family Practice 12/17/11 documented as of this encounter
--- OUTSIDE RECORDS SUMMARY | 2024-11-06 08:16 | XMS_ITS | Patient Health Record ---
Author Organization [facility] Address [address] [facility] [address] [place] [address] Care Team Providers Care Campaign Management Specialist Name Role Phone Jt Zamora MD Primary Care Provider Kirby Jeronimo Unavailable [phone] Soham Arnold MD Unavailable Unavailable Allergies Allergen [...] Problem Status W/U Status Risk Notes Problem [id number] Abnormal MRI of abdomen (R93.5) Active confirmed Plan Of Treatment Pending Test Test Name Order Date Initiate SIBO 08/08/2016 MRI Abdomen with Contrast 10/06/2018 Insurance Providers Payer Name Payer Address Payer Phone Subscriber Number Group Number Insured Name Patient Relationship to Insured Coverage Start Date Coverage End Date [employer] PPO E2 [address] [place] [address] [id number] Sagar Evans Spouse - patient is the [...]
--- OUTSIDE RECORDS SUMMARY | 2024-11-06 08:16 | XMS_ITS | Clinical Summary ---
Author Organization [facility] Address [address] [place] [address] Care Team Providers Care Fabric Sourcer Name Role Phone Jt Zamora MD Primary Care Provider [phone] Source Comments [facility],non-owned Affiliates and Associated Physician Practices is amultiple site organization consisting of ambulatory clinics and hospital sitesin [place], [place], [place] and [place]. This disclosure is being madepursuant to the Care Everywhere program and may not contain all information available regarding this patient. Last updated 18.[facility] Allergies Active Allergy Reactions Criticality Noted Date [...] 81 mg by mouth once daily Active pdaqt-1-ienp ethyl esters (LOVAZA) 1 G capsule Take [...] on file Legal Sex Female 5:49 PM SAP PORTAL ARCHITECT Gender Identity Not on file Sexual Orientation Not on file Last Filed Vital Signs Vital Sign Reading Time Taken Comments Blood Pressure 118/59 05/26/2018 10:57 AM SAP PORTAL ARCHITECT Pulse 83 05/26/2018 10:57 AM SAP PORTAL ARCHITECT Temperature 36.5 C (97.7 F) 05/26/2018 10:57 AM SAP PORTAL ARCHITECT Respiratory Rate 20 04/16/2018 2:00 PM SAP PORTAL ARCHITECT Oxygen Saturation 95% 04/16/2018 2:00 PM SAP PORTAL ARCHITECT Inhaled Oxygen Concentration - - Weight 109.4 kg (241 lb 1.6 oz) 019 10:57 AM SAP PORTAL ARCHITECT Height 162.6 cm (5' 4) 05/26/2018 10:5 7 AM SAP PORTAL ARCHITECT Body Mass Index 41.38 05/26/2018 10:57 AM SAP PORTAL ARCHITECT Plan of Treatment Health Maintenance Due Date [...] series) 2024 DEPRESSION SCREENING 04/28/2024 INFLUENZA VACCINE (#1) 2024 HEPATITIS C SCREENING Completed 01/28/2013 HEPATITIS [...] COMPREHENSIVE METABOLIC PANEL Routine 03/25/2018 8:58 AM SAP PORTAL ARCHITECT Elevated liver enzymes HEPATITIS C ANTIBODY Routine 01/28/2013 10:30 AM CDT from Last 3 Months or Most Recently Relevant to Health Maintenance Results * (ABNORMAL) COMPREHENSIVE METABOLIC PANEL (03/25/2018 8:58 AM SAP PORTAL ARCHITECT) Glucose 112(H) 65 - 99 mg/dL [facility] [...] approximately 13% higher for people identified as -Colombian. eGFR by MDRD 110 > OR = [...] 29 U/L [facility] Comment: Test Performed at: [facility] [id number] [place] [phone] LAURITA RAMIREZ DO,MPH Blood BLOOD SPECIMEN / Unknown 03/25/2018 8:58 AM SAP PORTAL ARCHITECT 03/25/2018 8:59 AM SAP PORTAL ARCHITECT us Darwin Mackenzie MD LAB - CHEMISTRY ORDERABLES Yumiko christian Result [facility] [address] [place] [address] * HEPATITIS C ANTIBODY (01/28/2013 10:30 AM CDT) [facility] Hepatitis C Antibody NON-REACTI VE NON-REACT SHERINE [facility] (SLU) Signal/Cutoff 0.03 <1.00 [facility] (SLU) Comment: Test Performed at: [facility] [address] [place] [address] LAURITA RAMIREZ DO,MPH 01/28/2013 10:3 0 AM CDT 01/28/2013 10:31 AM CDT us Kelly Caraballo MD LAB - CHEMISTRY OR DERABLES Edited Result - Final [facility] (U) [id number] from Last 3 Months or Most Recently Relevant to Health Maintenance Insurance [place] [address] ANTHEM Care Teams Fabric Sourcer Relationship Specialty Start Date End Date Jt Zamora MD PCP - General 04/12/08
--- OUTSIDE RECORDS SUMMARY | 2024-11-06 08:16 | XMS_ITS | Encounter Summary ---
Author Organization [facility] Address [address] [place] [address] Care Team Providers Care Sewage Reticulation Drafting Officer Name Role Phone Jt Zamora MD Primary Care Provider [phone] Encounter Details Date Type Department Care Team (Late st Contact Info) Description 09/18/2018 Lab Requisition [facility] [address] [facility] [place] [id number] Jeaneth Funez MD [address] [facility] [address] [place] [address] Social History Tobacco Use Types Packs/Day Years Used Date Smoking Tobacco: Every Day Cigarettes Smokeless Tobacco: Never Alcohol Use Standard Drinks/Week Comments Yes 0 (1 standard drink = 0.6 oz pur e alcohol) 2 - 3 times a week Comments Unknown Sex and Gender Information Value Date Recorded Sex Assigned at Not on file Legal Sex Female 5:49 PM POLISHER ALUMINUM Gender Identity Not on file Sexual Orientation Not on file documented as of this encounter Plan of Treatment Not on file documented as of this encounter Procedures Procedure Name Priority Date/Time Associated Diagnosis Comments DERMATOPATHOLOGY Routine 09/17/2018 12:0 0 AM CDT documented in this encounter Results * DERMATOPATHOLOGY (09/17/2018 12:00 AM CDT) Case Report Dermatopathology Report Case: [id number] Authorizing Provider: Jeaneth Funez MD Collected: 09/17/2018 [...] The specimen consists of a shave measuring [id number]. Jar 0. 6:00 PM T DERMATOPATHOLOGY LABORATORY [...] determined by the Dermatopathology Laboratory at [facility], directed by Dr. Luke Lara. These tests need not be, and therefore are not, approved by the [place] Food and Drug Administration. The tests are used for clinical purposes. Billing Codes Specimen Charges Stain Charges 67392 1 9 6:00 PM CDT DERMATOPATHOLOGY LABORATORY Embedded Images 6:00 PM CDT DERMATOPATHOLOGY LABORATORY Pathology/Cytolog y TISSUE SPECIMEN FROM SKIN / Unknown 09/17/2018 09/18/2018 6:36 AM CDT us Jeaneth Funez MD LAB - PATHOLOGY/CYTOLOGY ORD ERABLES Final Result DERMATOPATHOLOGY LABORATORY [facility] - Department of Dermatology [address] [facility], 5th Floor Lab B [address] [phone] documented in this encounter Visit Diagnoses Not on filedocumented in this encounter Care Teams Sewage Reticulation Drafting Officer Relationship Specialty Start Date End Date Jt Zamora MD PCP - General 04/12/08 documented as of this encounter
--- OUTSIDE RECORDS SUMMARY | 2024-11-06 08:17 | XMS_ITS | Clinical Summary ---
Author Organization [facility] Address [address] [place] [address] Care Team Providers Care Lapper Name Role Phone Jt Zamora MD Primary Care Provider [phone] Social History Tobacco Use Types Packs/Day Years Used Date Smoking Tobacco: Never Assessed Comments Unknown Sex and Gender Information Value Date Recorded Sex Assigned at Not on file Legal Sex Female 5:32 AM PROFESSOR OF BUSINESS ADMINISTRATION Gender Identity Not on file Sexual Orientation [...] (1 of 2) 02/12/2014 INFLUENZA VACCINE (#1) 2024 RSV VACCINE (60+ or ) (1 - 1-dose 75+ series) 02/12/2039 HEPATITIS B VACCINES Aged Out No long er eligible based on patient's age to complete this topic Insurance [employer] PPO Care Teams Lapper Relationship Specialty Start Date End Date Jt Zamora MD [address] [place] [address] PCP - General Family Practice 12/17/11
--- OUTSIDE RECORDS SUMMARY | 2024-11-06 08:17 | XMS_ITS | Clinical Summary ---
Author Organization [facility] [address] Address [address] [place] [address] Care Team Providers Care Mainframe Applications Developer Name Role Phone Soham Arnold MD Unavailable [phone] Jeaneth Funez MD Unavailable [phone] Walt Shetty MD Unavailable [phone] Jaime Cleaning MD Primary Care Provider [phone] Allergies Active Allergy Reactions Criticality Noted Date [...] hypertension 09/16/2023 Coronary artery disease invo lving [place] coronary artery of [place] heart without angina pectoris 09/16/2023 Morbid obesity [...] symptoms. Encouraged her to return to her inspector plating for additional review of her facial redness [...] history of psoriasis on her elbows. Saw inspector plating in the past who provided topical agents with resolution of skin rashes. 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 Impaired glucose tolerance 04/27/2013 Standard chest x-ray abnormal 08/19/2012 Encounters Date Type Department Care Team Description 10/11/2024 8:30 AM CDT Office Visit [facility] Cardiology at [address] [place] [address] Javier Melvin MD Coronary artery disease involving [place] coronary artery of [place] heart without angina pectoris (Primary Dx); Status post insertion of drug eluting coronary artery stent from Last 3 Months Surgical History Surgery Date Site/Laterality Comments MT TOTAL ABDOMINAL HYSTERECT W/WO RMVL TUBE OVARY Hysterectomy - (Added by TW Conv) BREAST SURGERY Breast Surgery Enlargement Procedure Bilateral - (Added by TW Conv) MT TONSILLECTOMY PRIMARY/SECONDARY <AGE 12 Tonsillectomy - (Added [...] or subcutaneous tissue History of urticaria - (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 For additional information please refer to http://Stereobot.KOTURA/faq/ORT23b6 (This link is being provided for informational/ educational purposes only.) 12/06/2021 11:2 6 AM CDT 12/06/2021 11:28 AM CDT us Walt Shetty MD LAB MICROBIOLOGY - GENERAL ORD ERABLES Final Result [facility] [address] [address] from Last 3 Months or Most Recently Relevant to Health Maintenance Insurance [place] Care Teams Mainframe Applications Developer Relationship Specialty Start Date End Date Jaime Cleaning MD [address] [facility] [address] [facility] [address] [place] [address] PCP - General Internal Medicine 11/01/21 Soham Arnold MD [address] [address] Referring Physician Cardiovascular Disease 02/03/19 Jeaneth Funez MD [address] [place] [address] Referring Physician Dermatology 03/10/19 Walt Shetty MD [address] [place] [address] Consulting Physician Rheumatology 11/01/21
--- OUTSIDE RECORDS SUMMARY | 2024-11-06 08:17 | XMS_ITS | Encounter Summary ---
Author Organization [facility] Address 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 Gender Identity Not on file Sexual Orientation Not on file documented as of this encounter Plan of Treatment Not on file documented as of this encounter Procedures Procedure Name Priority Date/Time Associated Diagnosis Comments PATHOLOGY Routine 10/10/2008 10:24 AM CDT POC , URINE Routine 10/10/2008 7:43 AM CDT documented in this encounter Results * PATHOLOGY (10/10/2008 10:24 AM CDT) FINAL REPORT [facility] [address] [place], [place] [address] Patient: BISHOP LANDRY : 1965 Procedure Date: 10/10/2008 Accession Date: 10/10/2008 Case No: [id number] Ordering Dr: KIRBY BRAMBILA Case types AW, BW, FW, NW and SH are performed by [facility], [place], [place] SURGICAL PATHOLOGY & NON-GYNECOLOGIC CYTOPATHOLOGY REPORT [...] 12:32 pm Microscopic: Received are slides labeled [id number], Bishop Landry. Sections of small bowel contain four fragments of small intestinal mucosa showing no significant histopathologic abnormalities. There is no significant increase in intraepithelial or lamina propria inflammation. Villous architecture appears preserved, without evidence of villous blunting. There is no evidence of active inflammation, granulomas, or foveolar metaplasia. [facility] 10.11.2008 10:12 am Staging Form: No. ELECTRONIC SIGNATURE FOR LIANA TITUS M.D.- 10/11/08 03:24 pm INTERFACE SYSTEM 10/10/2008 10:2 4 AM CDT Kirby Brambila MD PATHOLOGY/CYTOLOGY ORDERABLES Final Result INTERFACE SYSTEM Refer to clinic/hospital department * POC , URINE (10/10/2008 7:43 AM CDT) , URINE POC Negative Negative [facility] 10/10/2008 7:43 AM CDT 10/10/2008 7:43 AM CDT Kirby Brambila MD POINT OF CARE TESTING Final R esult INTERFACE SYSTEM Refer to clinic/hospital department [facility] CLIA# [id number] [address] [place] [address] documented in this encounter Visit Diagnoses Diagnosis Heartburn Diarrhea Flatulence, eructation, and gas pain documented in this encounter Care Teams Sourcer Relationship Specialty Start Date End Date Jt Zamora MD [facility] [place] [address] PCP - General Family Practice 12/17/11 documented as of this encounter
--- OUTSIDE RECORDS SUMMARY | 2024-11-06 08:17 | XMS_ITS | Referral Summary ---
Author Organization [facility] [address] [address] Address [address] [place] [address] Care Team Providers Care Library Technology Instructor Name Role Phone Soham Arnold MD Unavailable [phone] Jeaneth Funez MD Unavailable [phone] Walt Shetty MD Unavailable [phone] Jaime Cleaning MD Primary Care Provider [phone] Encounters Date Type Department Care Team Description 10/11/2024 8:30 AM CDT Office Visit [facility] Cardiology at [address] [place] [address] Javier Melvin MD Coronary artery disease involving [place] coronary artery of [place] heart without angina pectoris (Primary Dx); Status [...] hypertension 09/16/2023 Coronary artery disease invo lving [place] coronary artery of [place] heart without angina pectoris 09/16/2023 Morbid obesity [...] symptoms. 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 For additional information please refer to http://Campanja.Wiren Board/faq/GGQ82s4 (This link is being provided for informational/ educational purposes only.) 12/06/2021 11:2 6 AM CDT 12/06/2021 11:28 AM CDT Walt Shetty MD LAB MICROBIOLOGY - GENERAL ORD ERABLES Final Result [facility] [address] [place] [address] from Last 3 Months or Most Recently Relevant to Health Maintenance Insurance [facility] [place] Care Teams Library Technology Instructor Relationship Specialty Start Date End Date Jaime Cleaning MD [address] [facility] [address] [place] [address] PCP - General Internal Medicine 11/01/21 Soham Arnold MD [address] [place] [address] [address] Referring Physician Cardiovascular Disease 02/03/19 Jeaneth Funez MD [address] [place] [address] Referring Physician Dermatology 03/10/19 Walt Shetty MD [address] [place] [address] Consulting Physician Rheumatology 11/01/21
== END 2024-11-06 08:13 | disposition home or self-care (01) ==
LOC: ANHIMG 08:14
PROVIDERS: PCP Internal Medicine; Visit Provider Obstetrics & Gynecology
DX: Z12.31 Encounter for screening mammogram for malignant neoplasm of breast (principal)
CPT/HCPCS: 77063; 77067

== ENCOUNTER 2024-11-18 12:47 | Outpatient (CLI) | payer BC, SELFPAY ==
--- NOTE | ~2024-11-18 | CT_ITS ---
CLINICAL INDICATION: Post open periumbilical incisional hernia repair without mesh performed COMPARISON: 05/18/2024. And dating back to 02/29/2020 TECHNIQUE: Multiple contiguous axial images of the abdomen and pelvis were performed without the admi nistration of intravenous contrast The dose-length product (DLP) was 1257.29 mGy-cm. Automated exposure control and iterative reconstruction technique were employed. FINDINGS/OBSERVATIONS: Visualized lower thorax: Trace bibasilar atelectasis. The remainder of the bilateral lung gallardo are clear. The heart is enlarged, without pericardial effusion. Small hiatal hernia is present. Liver: The liver demonstrates homogeneously decreased attenuation and is significantly enlarged measuring 26 cm in longitudinal dimension. Gallbladder and biliary system: The gallbladder is only minimally distended, and otherwise unremarkable. Pancreas: Limited evaluation of the pancreas secondary to the lack of intravenous contrast. Spleen: The spleen demonstrates homogeneous attenuation and is not enlarged. Kidneys: Rounded well-circumscribed focus of fluid attenuation exophytic from the lower pole kidney, consistent with a simple cyst for which no further follow-up is needed. The remainder of the bilateral kidneys are otherwise unremarkable, without hydronephrosis or renal ca lculi. Adrenal glands: Unremarkable. Gastrointestinal tract: Fecal stasis within the colon. Appendix: The appendix is not definitively visualized. However, no pericecal inflammatory change is identified suggest the presence of acute appendicitis. Vasculature: Unremarkable. Lymph nodes: Limited evaluation without intravenous contrast. Pelvic structures: The bladder is only minimally distended, and otherwise unremarkable. The uterus is either atrophic or surgically absent. Body wall and musculoskeletal: Interval increase in size and likely umbilical hernia which extends cranially from a supraumbilical p osition. The fascial defect measures 10.5 mm while the hernia sac measures 33 x 44 x 42 mm. Age-appropriate degenerative disease within the lower thoracic and lumbosacral spine. IMPRESSION: Interval increase in imaging size of an umbilical hernia, as detailed above. Fatty infiltration of a significantly enlarged liver. Reviewed, dictated and finalized at location A.
--- OUTSIDE RECORDS SUMMARY | 2024-11-18 12:54 | XMS_ITS | Encounter Summary ---
Author Organization [facility] Address 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 Gender Identity Not on file Sexual [...] AB IGG (07/23/2007 7:47 AM CDT) Pathologist [facility] CYCLIC CITRULLINATED PEPTIDE AB IGG <20 Units [facility] Comment: REFERENCE RANGE: NEGATIVE: <20 WEAK POSITIVE: 20-39 MODERATE/STRONG POSITIVE: 40-59 STRONG POSITIVE: >59 Lab test performed by: [facility] [id number] [place] [phone] LAURITA GARCIA MD Blood specimen (specimen) 07/23/2007 7:47 AM CDT 07/23/2007 9:21 AM CDT Scooter Wood MD CHEMISTRY ORDERABLES Final Resu lt Performing Organization Address [facility] Co de Phone Number [facility] [address] [place] [address] * ALDOLASE (07/23/2007 7:47 AM CDT) [facility] ALDOLASE 3.3 < OR = 8.1 U/L [facility] Comment: Lab test performed by: [facility] [id number] [place] [phone] LAURITA GARCIA MD Blood specimen (specimen) 07/23/2007 7:47 AM CDT 07/23/2007 8:06 AM CDT Scooter Wood MD CHEMISTRY ORDERABLES Final Resu lt Performing Organization Address [facility] Co de Phone Number [facility] [address] [place] [address] * RHEUMATOID FACTOR (07/23/2007 7:47 AM CDT) Pathologist [facility] RHEUMATOID FACTOR <6.0 0.0 - 13.9 IU/mL [facility] Blood specimen (specimen) 07/23/2007 7:47 AM CDT 07/23/2007 8:04 AM CDT us Scooter Wood MD CHEMISTRY ORDERABLES Final Resu lt Performing Organization Address [facility] Co de Phone Number [facility] [address] [place] [address] * COMPLEMENT C4 (07/23/2007 7:47 AM CDT) COMPLEMENT C4 20 10 - 40 mg/dL [facility] Blood specimen (specimen) 07/23/2007 7:47 AM CDT 07/23/2007 8:04 AM CDT us Scooter Wood MD CHEMISTRY ORDERABLES Final Resu lt Performing Organization Address [facility] Phone Number [facility] [address] [place] [address] * COMPLEMENT C3 (07/23/2007 7:47 AM CDT) COMPLEMENT C3 158 90 - 180 mg/dL [facility] Blood specimen (specimen) 07/23/2007 7:47 AM CDT 07/23/2007 8:04 AM CDT us Scooter Wood MD CHEMISTRY ORDERABLES Final Resu lt Performing Organization Address [facility] de Phone Number [facility] [address] [place] [address] * LUZ PANEL (07/23/2007 7:47 AM CDT) LUZ SCREEN NEGATIVE NEGATIVE [facility] Comment: Lab test performed by: [facility] [address] [phone] LAURITA GARCIA MD DNA AUTOABS DOUBLE STRANDED 4 IU/mL [facility] Comment: IU/mL INTERPRETATION ===== < OR = 4 NEGATIVE 5 - 9 INDETERMINATE > OR = 10 POSITIVE Lab test performed by: [facility] [id number] [place] [phone] LAURITA GARCIA MD SCLERODERMA AB SCL 70 <1.0 NEG <1.0 NEG Index [facility] Comment: Lab test performed by: [facility] [address] [place] [phone] LAURITA GARCIA MD SJOGRENS ABS (SSB) <1.0 NEG <1.0 NEG Index [facility] Comment: Lab test performed by: [facility] [address] [place] [phone] LAURITA GARCIA MD RUSS ABS, SM/ADVISOR [employer] AB <1.0 NEG <1.0 NEG Index [facility] Comment: Lab test performed by: [facility] [address] [place] [phone] LAURITA GARCIA MD RUSS ABS, SM AB <1.0 NEG <1.0 NEG Index [facility] SJOGRENS ABS (SSA) <1.0 NEG <1.0 NEG Index [facility] Blood specimen (specimen) 07/23/2007 7:47 AM CDT 07/23/2007 8:04 AM CDT Scooter Wood MD CHEMISTRY ORDERABLES Edited [facility] [address] [place] [address] * (ABNORMAL) HLA B27 (07/23/2007 7:47 AM CDT) HLA B27 DETECTED(A ) [facility] Comment: THE HLA B27 ANTIGEN IS PRESENT IN 9% OF AND 4% OF BLACK POPULATIONS. THIS ANTIGEN IS SEEN WITH A FREQUENCY OF 90% IN PATIENTS WITH ANKYLOSING SPONDYLITIS AND A FREQUENCY OF 80% IN PATIENTS WITH REITERS DISEASE. Lab test performed by: [id number] [address] [phone] LAURITA GARCIA MD Blood specimen (specimen) 07/23/2007 7:47 AM CDT 07/23/2007 8:06 AM CDT us Scooter Wood MD CHEMISTRY ORDERABLES Final Resu lt Performing Organization Address [facility] Phone Number [facility] [address] [place] [address] * HEPATITIS C ANTIBODY (07/23/2007 7:47 AM CDT) HEPATITIS C AB NON-REACTI VE NON-REACT SHERINE [facility] SIGNAL TO CUT OFF 0.05 <1.00 [facility] Comment: Lab test performed by: [employer] [id number] [phone] LAURITA GARCIA MD Blood specimen (specimen) 07/23/2007 7:47 AM CDT 07/23/2007 8:04 AM CDT us Scooter Wood MD CHEMISTRY ORDERABLES Final Resu lt Performing Organization Address [facility] de Phone Number [facility] [address] [place] [address] * HEPATITIS B SURFACE AB (07/23/2007 7:47 AM CDT) HEPATITIS B SURFACE AB <5 mIU/mL [facility] Comment: PATIENT DOES NOT HAVE IMMUNITY TO HEPATITIS B VIRUS. Lab test performed by: [employer] [id number] [phone] LAURITA GARCIA MD Blood specimen (specimen) 07/23/2007 7:47 AM CDT 07/23/2007 8:06 AM CDT us Scooter Wood MD CHEMISTRY ORDERABLES Final Resu lt Performing Organization Address [facility]/ZIP Co de Phone Number [facility] [address] [place] [address] * TSH (07/23/2007 7:47 AM CDT) [facility] TSH 1.07 0.27 - 4.20 uU/mL [facility] Blood specimen (specimen) 07/23/2007 7:47 AM CDT 07/23/2007 8:04 AM CDT Scooter Wood MD CHEMISTRY ORDERABLES Final Resu lt Performing Organization Address [facility] Co de Phone Number [facility] [address] [place] [address] * (ABNORMAL) LACTATE DEHYDROGENASE (07/23/2007 7:47 AM CDT) [facility] LD (LACTATE DEHYDROGENASE) 129(L) 135 - 214 U/L [facility] Blood specimen (specimen) 07/23/2007 7:47 AM CDT 07/23/2007 8:04 AM CDT Scooter Wood MD CHEMISTRY ORDERABLES Final Resu lt Performing Organization Address [facility] Co de Phone Number [facility] [address] [place] [address] * (ABNORMAL) CBC WITH DIFFERENTIAL (07/23/2007 7:47 AM CDT) [facility] HEMOGLOBIN 15.4(H) 11.8 - 14.8 g/dL [facility] RDW 13.8 11.5 - 14.5 % [facility] WBC 9.4 4.0 - 9.8 K/uL [facility] MCH 32.4 27.2 - 32.6 pg [facility] MPV 12.1 9.3 - 12.4 fL [facility] HEMATOCRIT 45.2(H) 35.5 - 44.0 % [facility] RDW-STDEV 47.6 37.1 - 48.7 fL [facility] RBC 4.75 3.90 - 4.90 M/uL [facility] MCHC 34.1 31.5 - 35.5 % [facility] MCV 95.2 82.0 - 99.0 fL [facility] PLATELETS 215 140 - 350 K/uL [facility] EOSINOPHILS 2 0 - 7 % [facility] EOSINOPHIL ABSOLUTE 0.22 0.00 - 0.70 K/uL [facility] LYMPHOCYTES 23 16 - 45 % [facility] LYMPHOCYTE ABSOLUTE 2.15 0.70 - 4.50 K/uL [facility] BASOPHILS 0 0 - 2 % [facility] BASOPHILS ABSOLUTE 0.03 0.00 - 0.20 K/uL [facility] MONOCYTES 4 3 - 13 % [facility] MONOCYTE ABSOLUTE 0.42 0.10 - 1.30 K/uL [facility] NEUTROPHILS 70 45 - 70 % [facility] NEUTROPHIL ABSOLUTE 6.62 1.90 - 7.00 K/uL [facility] Blood specimen (specimen) 07/23/2007 7:47 AM CDT 07/23/2007 8:29 AM CDT us Scooter Wood MD HEMATOLOGY ORDERABLES Edited INTERFACE SYSTEM Refer to clinic/hospital department [facility] [address] [place] [address] * CK (07/23/2007 7:47 AM CDT) CK 50 10 - 145 U/L [facility] Blood specimen (specimen) 07/23/2007 7:47 AM CDT 07/23/2007 8:04 AM CDT us Scooter Wood MD CHEMISTRY ORDERABLES Final Resu lt [facility] [address] [place] [address] * (ABNORMAL) COMPREHENSIVE METABOLIC PANEL (07/23/2007 7:47 AM CDT) CREATININE 0.52 0.51 - 0.95 mg/dL [facility] ALT 17 0 - 31 U/L [facility] SODIUM 135 135 - 145 mmol/L [facility] ALKALINE PHOSPHATASE 50 35 - 104 U/L [facility] CO2 23 22 - 30 mmol/L [facility] BILIRUBIN TOTAL 0.3 0.2 - 1.0 mg/dL [facility] POTASSIUM 4.1 3.5 - 4.9 mmol/L [facility] TOTAL PROTEIN 7.7 6.3 - 8.6 g/dL [facility] GLUCOSE 110(H) 65 - 99 mg/dL [facility] AST 17 12 - 32 U/L [facility] BUN 13 6 - 20 mg/dL [facility] CALCIUM 8.9 8.4 - 10.2 mg/dL [facility] ALBUMIN 4.4 3.4 - 4.8 g/dL [facility] CHLORIDE 102 96 - 108 mmol/L [facility] GFR, >60 >=60 mL/min/1. 7 sq meter [facility] GFR >60 >=60 mL/min/1. 7 sq meter [facility] Comment: Estimated GFR rate interpretative information for both Americans and non- Americans is available on the [facility] Intranet at: [email or web address] Select: Lab Policies and Procedures Select: Reference Ranges - GFR Blood specimen (specimen) 07/23/2007 7:47 AM CDT 07/23/2007 8:04 AM CDT us Scooter Wood MD CHEMISTRY ORDERABLES Edited Performing Organization Address [facility] de Phone Number [facility] [address] [place] [address] * C-REACTIVE PROTEIN (07/23/2007 7:47 AM CDT) Pathologist [facility] CRP 0.3 0.0 - 0.8 mg/dL [facility] Blood specimen (specimen) 07/23/2007 7:47 AM CDT 07/23/2007 8:04 AM CDT us Scooter Wood MD CHEMISTRY ORDERABLES Final Resu lt Performing Organization Address [facility] de Phone Number [facility] [address] [place] [address] * SEDIMENTATION RATE (07/23/2007 7:47 AM CDT) Pathologist [facility] ESR (SEDIMENTATION RATE) 6 0 - 20 mm/hr [facility] Blood specimen (specimen) 07/23/2007 7:47 AM CDT 07/23/2007 8:29 AM CDT us Scooter Wood MD HEMATOLOGY ORDERABLES Final Res ult Performing Organization Address [facility] de Phone Number [facility] [address] [place] [address] * URINALYSIS (07/23/2007 7:47 AM CDT) CLARITY UA Clear Clear [facility] BILIRUBIN UA Negative Negative [facility] PROTEIN UA Negative Negative [facility] LEUKOCYTE ESTERASE UA Negative Negative [facility] SPECIFIC GRAVITY UA 1.009 1.001 - 1.035 [facility] GLUCOSE UA Negative Negative [facility] BLOOD UA Negative Negative [facility] COLOR UA Pale Yellow [facility] NITRITE UA Negative Negative [facility] UROBILINOGEN UA <1 <=1 mg/dL [facility] PH UA 5.0 5.0 - 8.0 [facility] KETONES UA Negative Negative [facility] 07/23/2007 7:47 AM CDT 07/23/2007 8:32 AM CDT Scooter Wood MD URINE ORDERABLES Final Result [facility] [address] [place] [address] * XR WRIST 2 VW RIGHT (07/23/2007 7:12 AM CDT) Anatomical Region Laterality Modality Wrist / Hand Other 07/23/2007 7:12 AM CDT Narrative 07/23/2007 9:39 AM CDT [facility] [address] [place], [place] [address] Admit Date: 07/23/2007 BISHOP LANDRY Sex: F Admit Prov: KARELUMUDonya Leung Date: 1965 Primary Care Prov: KARELUMUDonya Leung CMRN: [id number] Room: [facility] SSN: [id number] IMAGING SERVICES Ordering Prov: N/A Accession Number: [id number] Interpretation RIGHT WRIST TWO VIEWS 07/23/2007 Clinical [...] Procedure Note Provider, Historical - 07/23/[address] [address] Admit Date: 07/23/2007 BISHOP LANDRY Sex: F Admit Prov: KARELSCOOTER Madhu Date:1965 Primary Care Prov: KARELUMUDonya Leung CMRN: [id number] Room: [facility] SSN: [address] [place] [address] IMAGING SERVICES Ordering Prov: N/A Interpretation RIGHT [...] AM CDT Narrative 07/23/2007 9:38 AM CDT [address] [address] [place], [place] [address] Admit Date: 07/23/2007 BISHOP LANDRY Sex: F Admit Prov: SCOOTER WOOD Date: 1965 Primary Care Prov: SCOOTER WOOD CMRN: [id number] Room: [facility]: [id number] IMAGING SERVICES Ordering Prov: N/A Accession Number: [id number] Interpretation LEFT WRIST 2 VIEWS 07/23/2007 History: [...] AMK Procedure Note Provider, Historical - 07/23/2007 [address] [place], [place] [address] Admit Date: 07/23/2007 BISHOP LANDRY Sex: F Admit Prov: SCOOTER WOOD Date:1965 Primary Care Prov: SCOOTER WOOD CMRN: [id number] Room: [facility] N: [id number] IMAGING SERVICES Ordering Prov: N/A Interpretation LEFT [...] CDT Narrative 07/23/2007 9:38 AM CDT [address] [address] Admit Date: 07/23/2007 LANDRY BISHOP Sex: F Admit Prov: SCOOTER WOOD Date: 1965 Primary Care Prov: SCOOTER WOOD CMRN: [id number] Room: [facility] SSN: [id number] IMAGING SERVICES Ordering Prov: N/A Accession Number: [id number] Interpretation RIGHT HAND TWO VIEWS 07/23/2007 Clinical [...] Procedure Note Provider, Historical - 07/23/[address] [place] [place], [place] [address] Admit Date: 07/23/2007 BISHOP LANDRY Sex: F Admit Prov: SCOOTER WOOD Date:1965 Primary Care Prov: SCOOTER WOOD CMRN: [id number] Room: [facility] SSN: [address] [place] [address] IMAGING SERVICES Ordering Prov: N/A Interpretation RIGHT [...] AM CDT Narrative 07/23/2007 9:39 AM CDT [address] [address] [place], [place] [address] Admit Date: 07/23/2007 BISHOP LANDRY Sex: F Admit Prov: SCOOTER WOOD Date: 1965 Primary Care Prov: SCOOTER WOOD CMRN: [id number] Room: [facility] SSN: [address] [place] [address] IMAGING SERVICES Ordering Prov: N/A Accession Number: [id number] Interpretation LEFT HAND TWO VIEWS 07/23/2007 Clinical [...] AMK Procedure Note Provider, Historical - 07/23/2007 [facility] [address] [place], [place] [address] Admit Date: 07/23/2007 BISHOP LANDRY Sex: F Admit Prov: SCOOTER WOOD Date:1965 Primary Care Prov: SCOOTER WOOD CMRN: [id number] Room: [facility] SSN: [id number] IMAGING SERVICES Ordering Prov: N/A Interpretation LEFT [...] CDT Narrative 07/23/2007 9:49 AM CDT [address] [address] Admit Date: 07/23/2007 BISHOP LANDRY Sex: F Admit Prov: SCOOTER WOOD Date: 1965 Primary Care Prov: SCOOTER WOOD CMRN: [id number] [facility]: [id number] IMAGING SERVICES Ordering Prov: N/A Accession Number: [id number] Interpretation RIGHT FOOT 2 VIEWS 07/23/2007 History: [...] Procedure Note Provider, Historical - 07/23/[address] [address] Admit Date: 07/23/2007 BISHOP LANDRY Sex: F Admit Prov: SCOOTER WOOD Date:1965 Primary Care Prov: SCOOTER WOOD CMRN: [id number] [facility]: [id number] IMAGING SERVICES Ordering Prov: N/A Interpretation RIGHT [...] AM CDT Narrative 07/23/2007 9:49 AM CDT [address] [address] [place], [place] [address] Admit Date: 07/23/2007 BISHOP LANDRY Sex: F Admit Prov: SCOOTER WOOD Date: 1965 Primary Care Prov: SCOOTER WOOD CMRN: [id number] Room: [facility] SSN: [id number] IMAGING SERVICES Ordering Prov: N/A Accession Number: [id number] Interpretation LEFT FOOT 2 VIEWS 07/23/2007 Clinical [...] AMK Procedure Note Provider, Historical - 07/23/2007 [address] [address] [place], [place] [address] Admit Date: 07/23/2007 BISHOP LANDRY Sex: F Admit Prov: SCOOTER WOOD Date:1965 Primary Care Prov: SCOOTER WOOD CMRN: [id number] Room: [facility] SSN: [id number] IMAGING SERVICES Ordering Prov: N/A Interpretation LEFT [...] CDT Narrative 07/23/2007 9:49 AM CDT [address] [address] Admit Date: 07/23/2007 BISHOP LANDRY Sex: F Admit Prov: SCOOTER WOOD Date: 1965 Primary Care Prov: SCOOTER WOOD CMRN: [id number] [facility] SS[facility]: [id number] IMAGING SERVICES Ordering Prov: N/A Accession Number: [id number] Interpretation RIGHT ANKLE 2 VIEWS 07/23/2007 History: [...] AMK Procedure Note Provider, Historical - 07/23/2007 [facility] [address] [place], [place] [address] Admit Date: 07/23/2007 BISHOP LANDRY Sex: F Admit Prov: SCOOTER WOOD Date:1965 Primary Care Prov: SCOOTER WOOD CMRN: [id number] Room: [facility] SSN: [id number] IMAGING SERVICES Ordering Prov: N/A Interpretation RIGHT [...] AM CDT Narrative 07/23/2007 9:49 AM CDT [address] [address] [place], [place] [address] Admit Date: 07/23/2007 BISHOP LANDRY Sex: F Admit Prov: SCOOTER WOOD Date: 1965 Primary Care Prov: SCOOTER WOOD CMRN: [id number] Room: [facility] SSN: [id number] IMAGING SERVICES Ordering Prov: N/A Accession Number: [id number] Interpretation LEFT ANKLE 2 VIEWS 07/23/2007 Clinical [...] AMK Procedure Note Provider, Historical - 07/23/2007 [address] [address] [place], [place] [address] Admit Date: 07/23/2007 BISHOP LANDRY Sex: F Admit Prov: SCOOTER WOOD Date:1965 Primary Care Prov: SCOOTER WOOD CMRN: [id number] Room: [facility] SSN: [id number] IMAGING SERVICES Ordering Prov: N/A Interpretation LEFT [...] unspecified documented in this encounter Care Teams Room Inspector Relationship Specialty Start Date End Date Jt Zamora MD [address] [place] [phone] PCP - General Family Practice 12/17/11 documented as of this encounter
--- OUTSIDE RECORDS SUMMARY | 2024-11-18 12:54 | XMS_ITS | Encounter Summary ---
Author Organization [facility] Address [address] [place] [address] Care Team Providers Care Registered Nurse Renal Name Role Phone Jt Zamora MD Primary Care Provider [phone] Encounter Details Date Type Department Care Team (Late st Contact Info) Description 09/18/2018 Lab Requisition [facility] [address] [facility] [place] [id number] Jeaneth Funez MD [address] [facility] [address] [place] [address] Social History Tobacco Use Types Packs/Day Years Used Date Smoking Tobacco: Every Day Cigarettes Smokeless Tobacco: Never Alcohol Use Standard Drinks/Week Comments Yes 0 (1 standard drink = 0.6 oz pur e alcohol) 2 - 3 times a week Comments Unknown Sex and Gender Information Value Date Recorded Sex Assigned at Not on file Legal Sex Female 5:49 PM [employer] Gender Identity Not on file Sexual Orientation Not on file documented as of this encounter Plan of Treatment Not on file documented as of this encounter Procedures Procedure Name Priority Date/Time Associated Diagnosis Comments DERMATOPATHOLOGY Routine 09/17/2018 12:0 0 AM CDT documented in this encounter Results * DERMATOPATHOLOGY (09/17/2018 12:00 AM CDT) Case Report Dermatopathology Report Case: [id number] Authorizing Provider: Jeaneth Funez MD Collected: 09/17/2018 [...] The specimen consists of a shave measuring [id number]. Jar 0. 6:00 PM T DERMATOPATHOLOGY LABORATORY [...] characteristic determined by the Dermatopathology Laboratory at [facility], directed by Dr. Luke Lara. These tests need not be, and therefore are not, approved by the [place] Food and Drug Administration. The tests are used for clinical purposes. Billing Codes Specimen Charges Stain Charges 41340 1 9 6:00 PM CDT DERMATOPATHOLOGY LABORATORY Embedded Images 6:00 PM CDT DERMATOPATHOLOGY LABORATORY Pathology/Cytolog y TISSUE SPECIMEN FROM SKIN / Unknown 09/17/2018 09/18/2018 6:36 AM CDT us Jeaneth Funez MD LAB - PATHOLOGY/CYTOLOGY ORD ERABLES Final Result DERMATOPATHOLOGY LABORATORY [facility] - Department of Dermatology [address] [facility] [address] [facility] 5th Floor Lab [address] [phone] documented in this encounter Visit Diagnoses Not on filedocumented in this encounter Care Teams Registered Nurse Renal Relationship Specialty Start Date End Date Jt Zamora MD PCP - General 04/12/08 documented as of this encounter
--- OUTSIDE RECORDS SUMMARY | 2024-11-18 12:54 | XMS_ITS | Encounter Summary ---
Author Organization [facility] Address [address] [facility] [place] [address] Care Team Providers Care Typing Secretary Name Role Phone Jt Zamora MD Primary Care Provider [phone] Encounter Details Date Type Department Care Team (Late st Contact Info) Description 04/02/2018 Lab Requisition [facility] [address] [facility], [place] [id number] Jeaneth Funez MD [address] [facility] 3 [place] [address] Social History Tobacco Use Types Packs/Day Years Used Date Smoking Tobacco: Every Day Cigarettes Smokeless Tobacco: Never Alcohol Use Standard Drinks/Week Comments Yes 0 (1 standard drink = 0.6 oz pur e alcohol) 3 to 4 times a week Comments Unknown Sex and Gender Information Value Date Recorded Sex Assigned at Not on file Legal Sex Female 5:49 PM GLUING MACHINE OFFBEARER Gender Identity Not on file Sexual Orientation Not on file documented as of this encounter Plan of Treatment Not on file documented as of this encounter Procedures Procedure Name Priority Date/Time Associated Diagnosis Comments DERMATOPATH TECHNICAL REPORT Routine 04/01/2018 12:00 AM GLUING MACHINE OFFBEARER documented in this encounter Results * DERMATOPATH TECHNICAL REPORT (04/01/2018 12:00 AM GLUING MACHINE OFFBEARER) Case Report Dermatopathology Report Case: [id number] Authorizing Provider: Jeaneth Funez MD Collected: 04/01/2018 12:00 AM Pathologist: Radha Lara MD Received: 04/02/2018 07:23 AM Specimen: Skin, right hand 12:18 PM [facility] DERMATOPATHOLOGY [facility]OR[facility] Addendum 1 At the request of the diagnosing physician, the technical component for PAS and Colloidal Iron was performed by [facility] Dermatopathology Laboratory. 12:18 PM [facility] DERMATOPATHOLOGY LABORATORY Addendum electronically signed by Radha Lara MD on 04/07/2018 at 1218 GLUING MACHINE OFFBEARER Clinical History PSO vs CTD. [place] scaly patches. 12:18 PM [facility] DERMATOPATHOLOGY LABORATORY Gross Description Specimen A: Received is one formalin filled container labeled with the patient's name and designated right hand. The specimen consists of a punch measuring [id number], bisected. Jar 0. [facility] Dermatopathology Laboratory performed the technical component only. 12:18 PM [facility] DERMATOPATHOLOGY LABORATORY Embedded Images 12:18 PM [facility] DERMATOPATHOLOGY LABORATORY DISCLAIMER An external and internal positive and negative controls are appropriate for the histochemical, immunohistochemical and immunofluorescence stain(s) in this case (if any), except where stated explicitly. The performance characteristics of the stain(s) cited in this report were developed and its performance characteristic determined by the Dermatopathology Laboratory at [facility]. These tests need not be, and therefore are not, approved by the [place] Food and Drug Administration. The tests are used for clinical purposes. 12:18 PM [facility] DERMATOPATHOLOGY LABORATORY at 1739 GLUING MACHINE OFFBEARER Pathology/Cytolog y TISSUE SPECIMEN FROM SKIN / Unknown 04/01/2018 04/02/2018 7:23 AM GLUING MACHINE OFFBEARER us Jeaneht Funez MD LAB - PATHOLOGY/CYTOLOGY ORD ERABLES Edited Result - Final DERMATOPATHOLOGY LABORATORY [facility] - Department of Dermatology [address] [facility], 5th [place] [address], [facility] [phone] documented in this encounter Visit Diagnoses Not on filedocumented in this encounter Care Teams Typing Secretary Relationship Specialty Start Date End Date Jt Zamora MD PCP - General 04/12/08 documented as of this encounter
--- OUTSIDE RECORDS SUMMARY | 2024-11-18 12:55 | XMS_ITS | Clinical Summary ---
Author Organization [facility] Address [address] [place] [address] [address] Care [address] Operations Clerk Name Role Phone Jt Zamora MD Primary Care Provider [phone] Source Comments [facility],non-owned Affiliates and Associated Physician Practices is amultiple site organization consisting of ambulatory clinics and hospital sitesin [place], [place], [place] and [place]. This disclosure is being madepursuant to the Care Everywhere program and may not contain all information available regarding this patient. Last updated 18.[facility] Allergies Active Allergy Reactions Criticality Noted Date [...] 81 mg by mouth once daily Active [id number] ethyl esters (LOVAZA) 1 G capsule Take [...] on file Legal Sex Female 5:49 PM AGRICULTURAL EXTENSION OFFICER Gender Identity Not on file Sexual Orientation Not on file Last Filed Vital Signs Vital Sign Reading Time Taken Comments Blood Pressure 118/59 05/26/2018 10:57 AM AGRICULTURAL EXTENSION OFFICER Pulse 83 05/26/2018 10:57 AM AGRICULTURAL EXTENSION OFFICER Temperature 36.5 C (97.7 F) 05/26/2018 10:57 AM AGRICULTURAL EXTENSION OFFICER Respiratory Rate 20 04/16/2018 2:00 PM AGRICULTURAL EXTENSION OFFICER Oxygen Saturation 95% 04/16/2018 2:00 PM AGRICULTURAL EXTENSION OFFICER Inhaled Oxygen Concentration - - Weight 109.4 kg (241 lb 1.6 oz) 019 10:57 AM AGRICULTURAL EXTENSION OFFICER Height 162.6 cm (5' 4) 05/26/2018 10:5 7 AM AGRICULTURAL EXTENSION OFFICER Body Mass Index 41.38 05/26/2018 10:57 AM AGRICULTURAL EXTENSION OFFICER Plan of Treatment Health Maintenance Due Date [...] COMPREHENSIVE METABOLIC PANEL Routine 03/25/2018 8:58 AM AGRICULTURAL EXTENSION OFFICER Elevated liver enzymes HEPATITIS C ANTIBODY Routine 01/28/2013 10:30 AM CDT from Last 3 Months or Most Recently Relevant to Health Maintenance Results * (ABNORMAL) COMPREHENSIVE METABOLIC PANEL (03/25/2018 8:58 AM AGRICULTURAL EXTENSION OFFICER) Glucose 112(H) 65 - 99 mg/dL [facility] [...] approximately 13% higher for people identified as -Sierra Leone[place]. eGFR by MDRD 110 > OR = [...] 29 U/L [facility] Comment: Test Performed at: [facility] [id number] [place] [id number] LAURITA RAMIREZ DO,MPH Blood BLOOD SPECIMEN / Unknown 03/25/2018 8:58 AM AGRICULTURAL EXTENSION OFFICER 03/25/2018 8:59 AM AGRICULTURAL EXTENSION OFFICER us Darwin Mackenzie MD LAB - CHEMISTRY ORDERABLES Yumiko christian Result [facility] [address] [place] [address] * HEPATITIS C ANTIBODY (01/28/2013 10:30 AM CDT) [facility] Hepatitis C Antibody NON-REACTI VE NON-REACT SHERINE [facility] ([facility]) Signal/Cutoff 0.03 <1.00 [facility] ([facility]) Comment: Test Performed at: [facility] [place] [address] [place] [address] LAURITA RAMIREZ DO,MPH 01/28/2013 10:3 0 AM CDT 01/28/2013 10:31 AM CDT us Kelly Caraballo MD LAB - CHEMISTRY OR DERABLES Edited Result - Final [facility] (U) [id number] from Last 3 Months or Most Recently Relevant to Health Maintenance [place] [address] [place] [address] Operations Clerk Relationship Specialty Start Date End Date Jt Zamora MD PCP - General 04/12/08
--- OUTSIDE RECORDS SUMMARY | 2024-11-18 12:55 | XMS_ITS | Referral Summary ---
Author Organization [facility] [address] Address [address] [place] [address] Care Team Providers Care Passenger Representative Name Role Phone Soham Arnold MD Unavailable [phone] Jeaneth Funez MD Unavailable [phone] Walt Shetty MD Unavailable [phone] Jaime Cleaning MD Primary Care Provider [phone] Encounters Date Type Department Care Team Description 10/11/2024 8:30 AM CDT Office Visit [facility] Cardiology at [address] [place] [address] Javier Melvin MD Coronary artery disease involving paimiut coronary artery of paimiut heart without angina pectoris (Primary Dx); Status [...] hypertension 09/16/2023 Coronary artery disease invo lving paimiut coronary artery of paimiut heart without angina pectoris 09/16/2023 Morbid obesity [...] symptoms. Encouraged her to return to her microfilmer for additional review of her facial redness [...] history of psoriasis on her elbows. Saw microfilmer in the past who provided topical agents with resolution of skin rashes. 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 For additional information please refer to http://Beacon Power.Boyibang/faq/QKT36r9 (This link is being provided for informational/ educational purposes only.) 12/06/2021 11:2 6 AM CDT 12/06/2021 11:28 AM CDT Walt Shetty MD LAB MICROBIOLOGY - GENERAL ORD ERABLES Final Result [facility] [address] [place] [address] from Last 3 Months or Most Recently Relevant to Health Maintenance Insurance [employer] [facility] [place] Care Teams Passenger Representative Relationship Specialty Start Date End Date Jaime Cleaning MD [address] [place] [address] PCP - General Internal Medicine 11/01/21 Soham Arnold MD [address] [place] [address] [address] [place] [address] Referring Physician Cardiovascular Disease 02/03/19 Jeaneth Funez MD [address] [place] [address] Referring Physician Dermatology 03/10/19 Walt Shetty MD [address] [place] [address] Consulting Physician Rheumatology 11/01/21
--- OUTSIDE RECORDS SUMMARY | 2024-11-18 12:55 | XMS_ITS | Clinical Summary ---
Author Organization 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
--- OUTSIDE RECORDS SUMMARY | 2024-11-18 12:55 | XMS_ITS | Clinical Summary ---
Author Organization [facility] [address] Address [address] [place] [address] Care Team Providers Care Legal Executive Assistant Name Role Phone Soham Arnold MD Unavailable [phone] Jeaneth Funez MD Unavailable [phone] Walt Shetty MD Unavailable [phone] Jaime Cleaning MD Primary Care Provider [phone] Allergies Active Allergy Reactions Criticality Noted Date [...] hypertension 09/16/2023 Coronary artery disease invo lving kaguyuk coronary artery of kaguyuk heart without angina pectoris 09/16/2023 Morbid obesity [...] symptoms. Encouraged her to return to her occupational health manager for additional review of her facial redness [...] history of psoriasis on her elbows. Saw occupational health manager in the past who provided topical agents with resolution of skin rashes. 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 Medical Group Cardiology at [address] [place] [address] Javier Melvin MD Coronary artery disease involving kaguyuk coronary artery of kaguyuk heart without angina pectoris (Primary Dx); Status post insertion of drug eluting coronary artery stent from Last 3 Months Surgical History Surgery Date Site/Laterality Comments [place] TOTAL ABDOMINAL HYSTERECT W/WO RMVL TUBE OVARY Hysterectomy - (Added by TW Conv) BREAST SURGERY Breast Surgery Enlargement Procedure Bilateral - (Added by TW Conv) [place] TONSILLECTOMY PRIMARY/SECONDARY <AGE 12 Tonsillectomy - (Added [...] or subcutaneous tissue History of urticaria - (chronic disease epidemiologist jhon with negative allergy testing). 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 For additional information please refer to http://LGC Wireless.Newsblur/faq/LBM74d1 (This link is being provided for informational/ educational purposes only.) 12/06/2021 11:2 6 AM CDT 12/06/2021 11:28 AM CDT Walt Shetty MD LAB MICROBIOLOGY - GENERAL ORD ERABLES Final Result [facility] [address] [place] [address] from Last 3 Months or Most Recently Relevant to Health Maintenance Insurance [employer] Care Teams Legal Executive Assistant Relationship Specialty Start Date End Date Jaime Cleaning MD [address] [place] [address] PCP - General Internal Medicine 11/01/21 Soham Arnold MD [address] [place] [address] Referring Physician Cardiovascular Disease 02/03/19 Jeaneth Funez MD [address] [place] [address] Referring Physician Dermatology 03/10/19 Walt Shetty MD [address] [place] [address] Consulting Physician Rheumatology 11/01/21
--- OUTSIDE RECORDS SUMMARY | 2024-11-18 12:55 | XMS_ITS | Continuity of Care Document ---
Author Organization [facility] Address [address] [place] [address] [address] [place] [address] Phone Care Team Providers Care Grocery Associate Name Role Phone Mehnaz Velazquez Unavailable Unavailable Advance Directives Directive Yes / No Effective Date File Name No Information Encounters Encounter Description Practice Location Reason(s) For Visit Diagnoses Date Provider Providers Copied on Encounter [facility], [address] [place] [address] [address], [place], [place], [id number], [place] tel:[phone] [facility] No Information Mar-0 8-200 5 Caroline Darby. [address] , [address], [place], [address], [place]. tel:[phone] Family History Family Member Type Diagnosis Age [...]
--- OUTSIDE RECORDS SUMMARY | 2024-11-18 12:55 | XMS_ITS | Encounter Summary ---
Author Organization [facility] Address [address] [place] [address] Care Team Providers Care Supervisor Plate Pasting Name Role Phone Jt Zamora MD Primary Care Provider [phone] Encounter Details Date Type Department Care Team (Late st Contact Info) Description 10/10/2008 Outpatient Historical [facility] Kirby Brambila MD [address] [place] [address] [place] [address] Heartburn; Diarrhea; Flatulence, Eructation, and Gas Pain Social History Tobacco Use Types Packs/Day Years Used Date Smoking Tobacco: Never Assessed Comments Unknown Sex and Gender Information Value Date Recorded Sex Assigned at Not on file Legal Sex Female 5:32 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 Gender Identity Not on file Sexual Orientation Not on file documented as of this encounter Plan of Treatment Not on file documented as of this encounter Procedures Procedure Name Priority Date/Time Associated Diagnosis Comments PATHOLOGY Routine 10/10/2008 10:24 AM CDT POC , URINE Routine 10/10/2008 7:43 AM CDT documented in this encounter Results * PATHOLOGY (10/10/2008 10:24 AM CDT) FINAL REPORT [facility] [address] [place], [place] [address] Patient: BISHOP LANDRY : 1965 Procedure Date: 10/10/2008 Accession Date: 10/10/2008 Case No: [id number] Ordering Dr: KIRBY BRAMBILA Case types AW, BW, FW, NW and SH are performed by [facility], [place], [place] SURGICAL PATHOLOGY & NON-GYNECOLOGIC CYTOPATHOLOGY REPORT [...] 12:32 pm Microscopic: Received are slides labeled [id number], Bishop Landry. Sections of small bowel contain four fragments of small intestinal mucosa showing no significant histopathologic abnormalities. There is no significant increase in intraepithelial or lamina propria inflammation. Villous architecture appears preserved, without evidence of villous blunting. There is no evidence of active inflammation, granulomas, or foveolar metaplasia. [facility] 10.11.2008 10:12 am Staging Form: No. ELECTRONIC SIGNATURE FOR LIANA TITUS M.D.- 10/11/08 03:24 pm INTERFACE SYSTEM 10/10/2008 10:2 4 AM CDT Kirby Brambila MD PATHOLOGY/CYTOLOGY ORDERABLES Final Result INTERFACE SYSTEM Refer to clinic/hospital department * POC , URINE (10/10/2008 7:43 AM CDT) , URINE POC Negative Negative [facility] 10/10/2008 7:43 AM CDT 10/10/2008 7:43 AM CDT Kirby Brambila MD POINT OF CARE TESTING Final R esult INTERFACE SYSTEM Refer to clinic/hospital department [facility] CLIA# [id number] [address] [place] [address] documented in this encounter Visit Diagnoses Diagnosis Heartburn Diarrhea Flatulence, eructation, and gas pain documented in this encounter Care Teams Supervisor Plate Pasting Relationship Specialty Start Date End Date Jt Zamora MD [facility] [place] [address] PCP - General Family Practice 12/17/11 documented as of this encounter
== END 2024-11-18 12:48 | disposition home or self-care (01) ==
PROVIDERS: PCP Internal Medicine; Visit Provider Surgery
DX: Z09 Encounter for follow-up examination after completed treatment for conditions other than malignant neoplasm (principal); K42.9 Umbilical hernia without obstruction or gangrene; K76.0 Fatty (change of) liver, not elsewhere classified
CPT/HCPCS: 74176

== ENCOUNTER 2024-12-15 08:51 | Outpatient (CLI) | payer BC, SELFPAY ==
--- NOTE | ~2024-12-15 | CT_ITS ---
CT Scan of the Chest without Contrast: Clinical Indication: Lung cancer screening, nicotine dependence Technique: Contiguous sections were acquired throughout the chest without intravenous contrast. Dose reduction technique was used on this scan by utilizing automated exposure control and iterative reconstruction technique. The dose-length product (DLP) was 214.78 mGy-cm. COMPARISON: 11/12/2023 Findings: There is no evidence of any significant mediastinal, hilar or axillary lymphadenopathy. The mediastinal soft tissues appear normal. There is no evidence of pleural or pericardial effusion. Stable 6 mm lower lobe pulmonary nodule (axial image 80).. Images through the upper abdomen reveal diffuse hepatic steatosis. Impression: Lung RADS 2: Benign appearance. 12 month follow-up screening CT advised. Reviewed, dictated and finalized at location . Impression: Lung RADS 2: Benign appearance. 12 month follow-up screening CT advised.
== END 2024-12-15 08:52 | disposition home or self-care (01) ==
PROVIDERS: PCP Internal Medicine; Visit Provider Nurse Practitioner Family
DX: Z12.2 Encounter for screening for malignant neoplasm of respiratory organs (principal); Z87.891 Personal history of nicotine dependence
CPT/HCPCS: 71271

== ENCOUNTER 2024-12-28 10:19 | Outpatient (CLI) | payer BC, SELFPAY ==
--- OUTSIDE RECORDS SUMMARY | 2004-07-03 09:00 | XMS_ITS | Continuity of Care Document ---
Author Organization [facility] Address [address] [place] [address] [address] [place] [address] Phone Care Team Providers Care Propulsion Generator Repairer Name Role Phone Mehnaz Velazquez Unavailable Unavailable Advance Directives Directive Yes / No Effective Date File Name No Information Encounters Encounter Description Practice Location Reason(s) For Visit Diagnoses Date Provider Providers Copied on Encounter [facility], [address] [place] [address] [address], [place], [place], [id number], [place] tel:[phone] [facility] No Information Mar-0 8-200 5 Caroline Darby. [address] , [address], [place], [address], [place]. tel:[phone] Family History Family Member Type Diagnosis Age At Onset No Information Payers Payer name Insurance type Covered constitution party ID Authoriza tion(s) No Information Social [...]
--- OUTSIDE RECORDS SUMMARY | 2024-12-28 11:09 | XMS_ITS | Clinical Summary ---
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
--- OUTSIDE RECORDS SUMMARY | 2024-12-28 11:09 | XMS_ITS | Encounter Summary ---
Author Organization [facility] Address [address] [place] [address] Care Team Providers Care Band Nailer Name Role Phone Jt Zamora MD Primary Care Provider [phone] Encounter Details Date Type Department Care Team (Late st Contact Info) Description 10/10/2008 Outpatient Historical [facility] Kirby Brambila MD [address] [place] [address] [place] [address] Heartburn; Diarrhea; Flatulence, Eructation, and Gas Pain Social History Tobacco Use Types Packs/Day Years Used Date Smoking Tobacco: Never Assessed Comments Unknown Sex and Gender Information Value Date Recorded Sex Assigned at Not on file Legal Sex Female 5:32 AM SUBACUTE NURSE Gender Identity Not on file Sexual Orientation Not on file documented as of this encounter Plan of Treatment Not on file documented as of this encounter Procedures Procedure Name Priority Date/Time Associated Diagnosis Comments PATHOLOGY Routine 10/10/2008 10:24 AM CDT POC , URINE Routine 10/10/2008 7:43 AM CDT documented in this encounter Results * PATHOLOGY (10/10/2008 10:24 AM CDT) FINAL REPORT [facility] [address], [place] [address] Patient: BISHOP LANDRY : 1965 Procedure Date: 10/10/2008 Accession Date: 10/10/2008 Case No: [id number] Ordering Dr: KIRBY BRAMBILA Case types AW, BW, FW, NW and SH are performed by [facility] [place], [place], [place] SURGICAL PATHOLOGY & NON-GYNECOLOGIC CYTOPATHOLOGY REPORT [...] 12:32 pm Microscopic: Received are slides labeled [id number], Bishop Landry. Sections of small bowel contain four fragments of small intestinal mucosa showing no significant histopathologic abnormalities. There is no significant increase in intraepithelial or lamina propria inflammation. Villous architecture appears preserved, without evidence of villous blunting. There is no evidence of active inflammation, granulomas, or foveolar metaplasia. [facility] 10.11.2008 10:12 am Staging Form: No. ELECTRONIC SIGNATURE FOR LIANA TITUS M.D.- 10/11/08 03:24 pm INTERFACE SYSTEM 10/10/2008 10:2 4 AM CDT Kirby Brambila MD PATHOLOGY/CYTOLOGY ORDERABLES Final Result INTERFACE SYSTEM Refer to clinic/hospital department * POC , URINE (10/10/2008 7:43 AM CDT) , URINE POC Negative Negative [facility] 10/10/2008 7:43 AM CDT 10/10/2008 7:43 AM CDT Kirby Brambila MD POINT OF CARE TESTING Final R esult INTERFACE SYSTEM Refer to clinic/hospital department [facility] CLIA# [id number] [address] [place] [address] documented in this encounter Visit Diagnoses Diagnosis Heartburn Diarrhea Flatulence, eructation, and gas pain documented in this encounter Care Teams Band Nailer Relationship Specialty Start Date End Date Jt Zamora MD [facility] [place] [address] PCP - General Family Practice 12/17/11 documented as of this encounter
--- OUTSIDE RECORDS SUMMARY | 2024-12-28 11:09 | XMS_ITS | Encounter Summary ---
Author Organization [facility] Address [address] [facility] [place] [address] Care Team Providers Care Vp Packaging Name Role Phone Jt Zamora MD Primary Care Provider [phone] Encounter Details Date Type Department Care Team (Late st Contact Info) Description 04/02/2018 Lab Requisition [facility] [address] 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 Gender Identity Not on file Sexual Orientation Not on file documented as of this encounter Plan of Treatment Not on file documented as of this encounter Procedures Procedure Name Priority Date/Time Associated Diagnosis Comments DERMATOPATH TECHNICAL REPORT Routine 04/01/2018 12:00 AM MEDICAL MANAGEMENT SPECIALIST documented in this encounter Results * DERMATOPATH TECHNICAL REPORT (04/01/2018 12:00 AM MEDICAL MANAGEMENT SPECIALIST) Case Report Dermatopathology Report Case: [id number] Authorizing Provider: Jeaneth Funez MD Collected: 04/01/2018 12:00 AM Pathologist: Radha Lara MD Received: 04/02/2018 07:23 AM Specimen: Skin, right hand 12:18 PM [facility] Addendum 1 At the request of the diagnosing physician, the technical component for PAS and Colloidal Iron was performed by [facility]ermat[facility]. 12:18 PM [facility] Addendum electronically signed by Radha Lara MD on 04/07/2018 at 1218 MEDICAL MANAGEMENT SPECIALIST Clinical History PSO vs CTD. [place] scaly patches. 12:18 PM [facility] Gross Description Specimen A: Received is one formalin filled container labeled with the patient's name and designated right hand. The specimen consists of a punch measuring [id number], bisected. Jar 0. [facility] performed the technical component only. 12:18 PM [facility] Embedded Images 12:18 PM [facility] DISCLAIMER An external and internal positive and negative controls are appropriate for the histochemical, immunohistochemical and immunofluorescence stain(s) in this case (if any), except where stated explicitly. The performance characteristics of the stain(s) cited in this report were developed and its performance characteristic determined by the Dermatopathology Laboratory at [facility]. These tests need not be, and therefore are not, approved by the [place] Food and Drug Administration. The tests are used for clinical purposes. 12:18 PM [facility] at 1739 MEDICAL MANAGEMENT SPECIALIST Pathology/Cytolog y TISSUE SPECIMEN FROM SKIN / Unknown 04/01/2018 04/02/2018 7:23 AM MEDICAL MANAGEMENT SPECIALIST us Jeaneth Funez MD LAB - PATHOLOGY/CYTOLOGY ORD ERABLES Edited Result - Final DERMATOPATHOLOGY LABORATORY [facility] - Department of Dermatology [address] [facility], [address]th [place] [address], [facility] [phone] documented in this encounter Visit Diagnoses Not on filedocumented in this encounter Care Teams Vp Packaging Relationship Specialty Start Date End Date Jt Zamora MD PCP - General 04/12/08 documented as of this encounter
--- OUTSIDE RECORDS SUMMARY | 2024-12-28 11:09 | XMS_ITS | Clinical Summary ---
Author Organization [facility] [address] [facility] [address] Address [address] [place] [address] Care Team Providers Care Paint Formulator Name Role Phone Soham Arnold MD Unavailable [phone] Jeaneth Funez MD Unavailable [phone] Walt Shetty MD Unavailable [phone] Jaime Cleaning MD Primary Care Provider [phone] Allergies Active Allergy Reactions Criticality Noted Date [...] hypertension 09/16/2023 Coronary artery disease invo lving [place] coronary artery of [place] heart without angina pectoris 09/16/2023 Morbid obesity [...] symptoms. 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 Saw cake icer in the past who provided topical agents with resolution of skin rashes. 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 Impaired glucose tolerance 04/27/2013 Standard chest x-ray abnormal 08/19/2012 Encounters Date Type Department Care Team Description 11/23/[address] [address] Randi Foreman 10/11/2024 8:30 AM CDT Office Visit [facility] at [address] [place] [address] Javier Melvin MD Coronary artery disease involving [place]gi[place] coronary artery of [place] heart without angina pectoris (Primary Dx); Status post insertion of drug eluting coronary artery stent from Last 3 Months Surgical History Surgery Date Site/Laterality Comments [place] TOTAL ABDOMINAL HYSTERECT W/WO RMVL TUBE OVARY Hysterectomy - (Added by TW Conv) BREAST SURGERY Breast Surgery Enlargement Procedure Bilateral - (Added by TW Conv) [place] TONSILLECTOMY PRIMARY/SECONDARY <AGE 12 Tonsillectomy - (Added [...] or subcutaneous tissue 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 For additional information please refer to http://[employer]/faq/BKF85o6 (This link is being provided for informational/ educational purposes only.) 12/06/2021 11:2 6 AM CDT 12/06/2021 11:28 AM CDT us Walt Shetty MD LAB MICROBIOLOGY - GENERAL ORD ERABLES Final Result [facility] [address] [place] [address] from Last 3 Months or Most Recently Relevant to Health Maintenance Insurance [employer] [place] [employer] [place] [employer] [place] Care Teams Paint Formulator Relationship Specialty Start Date End Date Jaime Cleaning MD [address] [facility] [address] [facility] [address] [place] [address] PCP - General Internal Medicine 11/01/21 Soham Arnold MD [address] [place] [address] [address] Referring Physician Cardiovascular Disease 02/03/19 Jeaneth Funez MD [address] [place] [address] Referring Physician Dermatology 03/10/19 Walt Shetty MD [address] [place] [address] Consulting Physician Rheumatology 11/01/21
--- OUTSIDE RECORDS SUMMARY | 2024-12-28 11:09 | XMS_ITS | Clinical Summary ---
Author Organization [facility] Address [address] [place] [address] Care Team Providers Care Solvent Station Attendant Name Role Phone Jt Zamora MD Primary Care Provider [phone] Source Comments [facility],non-owned Affiliates and Associated Physician Practices is amultiple site organization consisting of ambulatory clinics and hospital sitesin [place], [place], [place] and [place]. This disclosure is being madepursuant to the Care Everywhere program and may not contain all information available regarding this patient. 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 HYGIENIST Gender Identity Not on file Sexual Orientation Not on file Last Filed Vital Signs Vital Sign Reading Time Taken Comments Blood Pressure 118/59 05/26/2018 10:57 AM OCCUPATIONAL HYGIENIST Pulse 83 05/26/2018 10:57 AM OCCUPATIONAL HYGIENIST Temperature 36.5 C (97.7 F) 05/26/2018 10:57 AM OCCUPATIONAL HYGIENIST Respiratory Rate 20 04/16/2018 2:00 PM OCCUPATIONAL HYGIENIST Oxygen Saturation 95% 04/16/2018 2:00 PM OCCUPATIONAL HYGIENIST Inhaled Oxygen Concentration - - Weight 109.4 kg (241 lb 1.6 oz) 019 10:57 AM OCCUPATIONAL HYGIENIST Height 162.6 cm (5' 4) 05/26/2018 10:5 7 AM OCCUPATIONAL HYGIENIST Body Mass Index 41.38 05/26/2018 10:57 AM OCCUPATIONAL HYGIENIST Plan of Treatment Health Maintenance Due Date [...] COMPREHENSIVE METABOLIC PANEL Routine 03/25/2018 8:58 AM OCCUPATIONAL HYGIENIST Elevated liver enzymes HEPATITIS C ANTIBODY Routine 01/28/2013 10:30 AM CDT from Last 3 Months or Most Recently Relevant to Health Maintenance Results * (ABNORMAL) COMPREHENSIVE METABOLIC PANEL (03/25/2018 8:58 AM OCCUPATIONAL HYGIENIST) Glucose 112(H) 65 - 99 mg/dL [facility] [...] approximately 13% higher for people identified as -Y[place]i. eGFR by MDRD 110 > OR = [...] 29 U/L [facility] Comment: Test Performed at: [facility] [id number] [place] [id number] LAURITA RAMIREZ DO,MPH Blood BLOOD SPECIMEN / Unknown 03/25/2018 8:58 AM OCCUPATIONAL HYGIENIST 03/25/2018 8:59 AM OCCUPATIONAL HYGIENIST us Darwin Mackenzie MD LAB - CHEMISTRY ORDERABLES Yumiko christian Result [facility] [address] [place] [address] * HEPATITIS C ANTIBODY (01/28/2013 10:30 AM CDT) [facility] Hepatitis C Antibody NON-REACTI VE NON-REACT [facility] ([facility]) Signal/Cutoff 0.03 <1.00 [facility] ([facility]) Comment: Test Performed at: [employer] [facility] [address] [place] [address] LAURITA RAMIREZ DO,MPH 01/28/2013 10:3 0 AM CDT 01/28/2013 10:31 AM CDT us Kelly Caraballo MD LAB - CHEMISTRY OR DERABLES Edited Result - Final [facility] ([facility]) [id number] from Last 3 Months or Most Recently Relevant to Health Maintenance [place] [address] [place] [address] ANTHEM Care Teams Solvent Station Attendant Relationship Specialty Start Date End Date Jt Zamora MD PCP - General 04/12/08
--- OUTSIDE RECORDS SUMMARY | 2024-12-28 11:09 | XMS_ITS | Encounter Summary ---
Author Organization [employer] [facility] Address 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 Gender Identity Not on file Sexual Orientation [...] CYCLIC CITRULLINATED PEPTIDE AB IGG <20 Units [facility] Comment: REFERENCE RANGE: NEGATIVE: <20 WEAK POSITIVE: 20-39 MODERATE/STRONG POSITIVE: 40-59 STRONG POSITIVE: >59 Lab test performed by: [employer] [id number] REBEK[employer] Digital Shield [phone] LAURITA GARCIA MD Blood specimen (specimen) 07/23/2007 7:47 AM CDT 07/23/2007 9:21 AM CDT Scooter Wood MD CHEMISTRY ORDERABLES Final Resu lt Performing Organization Address [facility] Co de Phone Number [facility] [address] [place] [address] * ALDOLASE (07/23/2007 7:47 AM CDT) [facility] ALDOLASE 3.3 < OR = 8.1 U/L [facility] Comment: Lab test performed by: [facility] [id number] [address] [employer] Digital Shield [phone] LAURITA GARCIA MD Blood specimen (specimen) 07/23/2007 7:47 AM CDT 07/23/2007 8:06 AM CDT Scooter Wood MD CHEMISTRY ORDERABLES Final Resu lt Performing Organization Address City/[facility] Co de Phone Number [facility] [address] [place] [address] * RHEUMATOID FACTOR (07/23/2007 7:47 AM CDT) Pathologist [facility] RHEUMATOID FACTOR <6.0 0.0 - 13.9 IU/mL [facility] Blood specimen (specimen) 07/23/2007 7:47 AM CDT 07/23/2007 8:04 AM CDT us Scooter Wood MD CHEMISTRY ORDERABLES Final Resu lt Performing Organization Address [facility] Co de Phone Number [facility] [address] [place] [address] * COMPLEMENT C4 (07/23/2007 7:47 AM CDT) COMPLEMENT C4 20 10 - 40 mg/dL [facility] Blood specimen (specimen) 07/23/2007 7:47 AM CDT 07/23/2007 8:04 AM CDT us Scooter Wood MD CHEMISTRY ORDERABLES Final Resu lt Performing Organization Address [facility] Phone Number [facility] [address] [place] [address] * COMPLEMENT C3 (07/23/2007 7:47 AM CDT) COMPLEMENT C3 158 90 - 180 mg/dL [facility] Blood specimen (specimen) 07/23/2007 7:47 AM CDT 07/23/2007 8:04 AM CDT us Scooter Wood MD CHEMISTRY ORDERABLES Final Resu lt Performing Organization Address [facility] de Phone Number [facility] [address] [place] [address] * LUZ PANEL (07/23/2007 7:47 AM CDT) LUZ SCREEN NEGATIVE NEGATIVE [facility] Comment: Lab test performed by: Acceptd JASBIR [id number] [phone] LAURITA GARCIA MD DNA AUTOABS DOUBLE STRANDED 4 IU/mL [facility] Comment: IU/mL INTERPRETATION ===== < OR = 4 NEGATIVE 5 - 9 INDETERMINATE > OR = 10 POSITIVE Lab test performed by: [facility] [id number] [place] [address] LAURITA GARCIA MD SCLERODERMA AB SCL 70 <1.0 NEG <1.0 NEG Index [facility] Comment: Lab test performed by: [facility] [address] [place] [phone] LAURITA GARCIA MD SJOGRENS ABS (SSB) <1.0 NEG <1.0 NEG Index [facility] Comment: Lab test performed by: [facility] [address] [place] [phone] LAURITA GARCIA MD RUSS ABS, SM/RN POSTPARTUM AB <1.0 NEG <1.0 NEG Index [facility] Comment: Lab test performed by: [facility] [address] [place] [phone] LAURITA GARCIA MD RUSS ABS, SM AB <1.0 NEG <1.0 NEG Index [facility] SJOGRENS ABS (SSA) <1.0 NEG <1.0 NEG Index [facility] Blood specimen (specimen) 07/23/2007 7:47 AM CDT 07/23/2007 8:04 AM CDT Scooter Wood MD CHEMISTRY ORDERABLES Edited [facility] [address] [place] [address] * (ABNORMAL) HLA B27 (07/23/2007 7:47 AM CDT) HLA B27 DETECTED(A ) [facility] Comment: THE HLA B27 ANTIGEN IS PRESENT IN 9% OF AND 4% OF BLACK POPULATIONS. THIS ANTIGEN IS SEEN WITH A FREQUENCY OF 90% IN PATIENTS WITH ANKYLOSING SPONDYLITIS AND A FREQUENCY OF 80% IN PATIENTS WITH REITERS DISEASE. Lab test performed by: [employer] [address] [place] [phone] LAURITA GARCIA MD Blood specimen (specimen) 07/23/2007 7:47 AM CDT 07/23/2007 8:06 AM CDT us Scooter Wood MD CHEMISTRY ORDERABLES Final Resu lt Performing Organization Address [facility] Phone Number [facility] [address] [place] [address] * HEPATITIS C ANTIBODY (07/23/2007 7:47 AM CDT) HEPATITIS C AB NON-REACTI VE NON-REACT SHERINE [facility] SIGNAL TO CUT OFF 0.05 <1.00 [facility] Comment: Lab test performed by: Acceptd JASBIR [id number] [phone] LAURITA GARCIA MD Blood specimen (specimen) 07/23/2007 7:47 AM CDT 07/23/2007 8:04 AM CDT us Scooter Wood MD CHEMISTRY ORDERABLES Final Resu lt Performing Organization Address [facility] de Phone Number [facility] [address] [place] [address] * HEPATITIS B SURFACE AB (07/23/2007 7:47 AM CDT) HEPATITIS B SURFACE AB <5 mIU/mL [facility] Comment: PATIENT DOES NOT HAVE IMMUNITY TO HEPATITIS B VIRUS. Lab test performed by: Acceptd JASBIR [id number] [address] [phone] LAURITA GARCIA MD Blood specimen (specimen) 07/23/2007 7:47 AM CDT 07/23/2007 8:06 AM CDT us Scooter Wood MD CHEMISTRY ORDERABLES Final Resu lt Performing Organization Address [facility]/ZIP Co de Phone Number [facility] [address] [place] [address] * TSH (07/23/2007 7:47 AM CDT) [facility] TSH 1.07 0.27 - 4.20 uU/mL [facility] Blood specimen (specimen) 07/23/2007 7:47 AM CDT 07/23/2007 8:04 AM CDT Scooter Wood MD CHEMISTRY ORDERABLES Final Resu lt Performing Organization Address [facility] Co de Phone Number [facility] [address] [place] [address] * (ABNORMAL) LACTATE DEHYDROGENASE (07/23/2007 7:47 AM CDT) [facility] LD (LACTATE DEHYDROGENASE) 129(L) 135 - 214 U/L [facility] Blood specimen (specimen) 07/23/2007 7:47 AM CDT 07/23/2007 8:04 AM CDT Scooter Wood MD CHEMISTRY ORDERABLES Final Resu lt Performing Organization Address [facility] Co de Phone Number [facility] [address] [place] [address] * (ABNORMAL) CBC WITH DIFFERENTIAL (07/23/2007 7:47 AM CDT) [facility] HEMOGLOBIN 15.4(H) 11.8 - 14.8 g/dL [facility] RDW 13.8 11.5 - 14.5 % [facility] WBC 9.4 4.0 - 9.8 K/uL [facility] MCH 32.4 27.2 - 32.6 pg [facility] MPV 12.1 9.3 - 12.4 fL [facility] HEMATOCRIT 45.2(H) 35.5 - 44.0 % [facility] RDW-STDEV 47.6 37.1 - 48.7 fL [facility] RBC 4.75 3.90 - 4.90 M/uL [facility] MCHC 34.1 31.5 - 35.5 % [facility] MCV 95.2 82.0 - 99.0 fL [facility] PLATELETS 215 140 - 350 K/uL [facility] EOSINOPHILS 2 0 - 7 % [facility] EOSINOPHIL ABSOLUTE 0.22 0.00 - 0.70 K/uL [facility] LYMPHOCYTES 23 16 - 45 % [facility] LYMPHOCYTE ABSOLUTE 2.15 0.70 - 4.50 K/uL [facility] BASOPHILS 0 0 - 2 % [facility] BASOPHILS ABSOLUTE 0.03 0.00 - 0.20 K/uL [facility] MONOCYTES 4 3 - 13 % [facility] MONOCYTE ABSOLUTE 0.42 0.10 - 1.30 K/uL [facility] NEUTROPHILS 70 45 - 70 % [facility] NEUTROPHIL ABSOLUTE 6.62 1.90 - 7.00 K/uL [facility] Blood specimen (specimen) 07/23/2007 7:47 AM CDT 07/23/2007 8:29 AM CDT us Scooter Wood MD HEMATOLOGY ORDERABLES Edited INTERFACE SYSTEM Refer to clinic/hospital department [facility] [address] [place] [address] * CK (07/23/2007 7:47 AM CDT) CK 50 10 - 145 U/L [facility] Blood specimen (specimen) 07/23/2007 7:47 AM CDT 07/23/2007 8:04 AM CDT us Scooter Wood MD CHEMISTRY ORDERABLES Final Resu lt [facility] [address] [place] [address] * (ABNORMAL) COMPREHENSIVE METABOLIC PANEL (07/23/2007 7:47 AM CDT) CREATININE 0.52 0.51 - 0.95 mg/dL [facility] ALT 17 0 - 31 U/L [facility] SODIUM 135 135 - 145 mmol/L [facility] ALKALINE PHOSPHATASE 50 35 - 104 U/L [facility] CO2 23 22 - 30 mmol/L [facility] BILIRUBIN TOTAL 0.3 0.2 - 1.0 mg/dL [facility] POTASSIUM 4.1 3.5 - 4.9 mmol/L [facility] TOTAL PROTEIN 7.7 6.3 - 8.6 g/dL [facility] GLUCOSE 110(H) 65 - 99 mg/dL [facility] AST 17 12 - 32 U/L [facility] BUN 13 6 - 20 mg/dL [facility] CALCIUM 8.9 8.4 - 10.2 mg/dL [facility] ALBUMIN 4.4 3.4 - 4.8 g/dL [facility] CHLORIDE 102 96 - 108 mmol/L [facility] GFR, >60 >=60 mL/min/1. 7 sq meter [facility] GFR >60 >=60 mL/min/1. 7 sq meter [facility] Comment: Estimated GFR rate interpretative information for both Americans and non- Americans is available on the [facility] Intranet at: [email or web address] Select: Lab Policies and Procedures Select: Reference Ranges - GFR Blood specimen (specimen) 07/23/2007 7:47 AM CDT 07/23/2007 8:04 AM CDT us Scooter Wood MD CHEMISTRY ORDERABLES Edited Performing Organization Address [facility] de Phone Number [facility] [address] [place] [address] * C-REACTIVE PROTEIN (07/23/2007 7:47 AM CDT) Pathologist [facility] CRP 0.3 0.0 - 0.8 mg/dL [facility] Blood specimen (specimen) 07/23/2007 7:47 AM CDT 07/23/2007 8:04 AM CDT us Scooter Wood MD CHEMISTRY ORDERABLES Final Resu lt Performing Organization Address [facility] de Phone Number [facility] [address] [place] [address] * SEDIMENTATION RATE (07/23/2007 7:47 AM CDT) Pathologist [facility] ESR (SEDIMENTATION RATE) 6 0 - 20 mm/hr [facility] Blood specimen (specimen) 07/23/2007 7:47 AM CDT 07/23/2007 8:29 AM CDT us Scooter Wood MD HEMATOLOGY ORDERABLES Final Res ult Performing Organization Address [facility] de Phone Number [facility] [address] [place] [address] * URINALYSIS (07/23/2007 7:47 AM CDT) CLARITY UA Clear Clear [facility] BILIRUBIN UA Negative Negative [facility] PROTEIN UA Negative Negative [facility] LEUKOCYTE ESTERASE UA Negative Negative [facility] SPECIFIC GRAVITY UA 1.009 1.001 - 1.035 [facility] GLUCOSE UA Negative Negative [facility] BLOOD UA Negative Negative [facility] COLOR UA Pale Yellow [facility] NITRITE UA Negative Negative [facility] UROBILINOGEN UA <1 <=1 mg/dL [facility] PH UA 5.0 5.0 - 8.0 [facility] KETONES UA Negative Negative [facility] 07/23/2007 7:47 AM CDT 07/23/2007 8:32 AM CDT Scooter Wood MD URINE ORDERABLES Final Result [facility] [address] [place] [address] * XR WRIST 2 VW RIGHT (07/23/2007 7:12 AM CDT) Anatomical Region Laterality Modality Wrist / Hand Other 07/23/2007 7:12 AM CDT Narrative 07/23/2007 9:39 AM CDT [facility] [address] [place], [place] [address] Admit Date: 07/23/2007 BISHOP LANDRY Sex: F Admit Prov: KARELUMUDonya Leung Date: 1965 Primary Care Prov: KARELUMUDonya Leung CMRN: [id number] Room: [facility] SSN: [id number] IMAGING SERVICES Ordering Prov: N/A Accession Number: [id number] Interpretation RIGHT WRIST TWO VIEWS 07/23/2007 Clinical [...] AMK Procedure Note Provider, Historical - 07/23/[address] [address] Admit Date: 07/23/2007 BISHOP LANDRY Sex: F Admit Prov: KARELSCOOTER Madhu Date:1965 Primary Care Prov: KARELUMUDonya Leung CMRN: [id number] Room: [facility] SSN: [address] [place] [address] IMAGING SERVICES Ordering Prov: N/A Interpretation RIGHT [...] AM CDT Narrative 07/23/2007 9:38 AM CDT [place] [address] [place], [place] [address] Admit Date: 07/23/2007 BISHOP LANDRY Sex: F Admit Prov: SCOOTER WOOD Date: 1965 Primary Care Prov: SCOOTER WOOD CMRN: [id number] Room: [facility]: [id number] IMAGING SERVICES Ordering Prov: N/A Accession Number: [id number] Interpretation LEFT WRIST 2 VIEWS 07/23/2007 History: [...] AMK Procedure Note Provider, Historical - 07/23/2007 [address] [place], [place] [address] Admit Date: 07/23/2007 BISHOP LANDRY Sex: F Admit Prov: SCOOTER WOOD Date:1965 Primary Care Prov: SCOOTER WOOD CMRN: [id number] Room: CHERELLENakul N: [id number] IMAGING SERVICES Ordering Prov: N/A Interpretation LEFT [...] AM CDT Narrative 07/23/2007 9:38 AM CDT [address] [address] Admit Date: 07/23/2007 LANDRY BISHOP Sex: F Admit Prov: SCOOTER WOOD Date: 1965 Primary Care Prov: SCOOTER WOOD CMRN: [id number] Room: [facility] SSN: [id number] IMAGING SERVICES Ordering Prov: N/A Accession Number: [id number] Interpretation RIGHT HAND TWO VIEWS 07/23/2007 Clinical [...] AMK Procedure Note Provider, Historical - 07/23/[address] [place], [place] [address] Admit Date: 07/23/2007 BISHOP LANDRY Sex: F Admit Prov: SCOOTER WOOD Date:1965 Primary Care Prov: SCOOTER WOOD CMRN: [id number] Room: [facility] SSN: [address] [place] [address] IMAGING SERVICES Ordering Prov: N/A Interpretation RIGHT [...] AM CDT Narrative 07/23/2007 9:39 AM CDT [address] [place] [address] [place], [place] [address] Admit Date: 07/23/2007 BISHOP LANDRY Sex: F Admit Prov: SCOOTER WOOD Date: 1965 Primary Care Prov: SCOOTER WOOD CMRN: [id number] Room: [facility] SSN: [address] [place] [address] IMAGING SERVICES Ordering Prov: N/A Accession Number: [id number] Interpretation LEFT HAND TWO VIEWS 07/23/2007 Clinical [...] AMK Procedure Note Provider, Historical - 07/23/2007 [facility] [address] [place] [place], [place] [address] Admit Date: 07/23/2007 BISHOP LANDRY Sex: F Admit Prov: SCOOTER WOOD Date:1965 Primary Care Prov: SCOOTER WOOD CMRN: [id number] Room: [facility] SSN: [id number] IMAGING SERVICES Ordering Prov: N/A Interpretation LEFT [...] AM CDT Narrative 07/23/2007 9:49 AM CDT [address] [address] Admit Date: 07/23/2007 BISHOP LANDRY Sex: F Admit Prov: SCOOTER WOOD Date: 1965 Primary Care Prov: SCOOTER WOOD CMRN: [id number] [facility]: [id number] IMAGING SERVICES Ordering Prov: N/A Accession Number: [id number] Interpretation RIGHT FOOT 2 VIEWS 07/23/2007 History: [...] AMK Procedure Note Provider, Historical - 07/23/[address] [address] Admit Date: 07/23/2007 BISHOP LANDRY Sex: F Admit Prov: SCOOTER WOOD Date:1965 Primary Care Prov: SCOOTER WOOD CMRN: [id number] [facility]: [id number] IMAGING SERVICES Ordering Prov: N/A Interpretation RIGHT [...] AM CDT Narrative 07/23/2007 9:49 AM CDT [address] [address] [place], [place] [address] Admit Date: 07/23/2007 BISHOP LANDRY Sex: F Admit Prov: SCOOTER WOOD Date: 1965 Primary Care Prov: SCOOTER WOOD CMRN: [id number] Room: [facility] SSN: [id number] IMAGING SERVICES Ordering Prov: N/A Accession Number: [id number] Interpretation LEFT FOOT 2 VIEWS 07/23/2007 Clinical [...] AMK Procedure Note Provider, Historical - 07/23/2007 [address] [address] [place], [place] [address] Admit Date: 07/23/2007 BISHOP LANDRY Sex: F Admit Prov: SCOOTER WOOD Date:1965 Primary Care Prov: SCOOTER WOOD CMRN: [id number] Room: [facility] SSN: [id number] IMAGING SERVICES Ordering Prov: N/A Interpretation LEFT [...] AM CDT Narrative 07/23/2007 9:49 AM CDT [address] [address] Admit Date: 07/23/2007 BISHOP LANDRY Sex: F Admit Prov: SCOOTER WOOD Date: 1965 Primary Care Prov: SCOOTER WOOD CMRN: [id number] [facility] SS[facility]: [id number] IMAGING SERVICES Ordering Prov: N/A Accession Number: [id number] Interpretation RIGHT ANKLE 2 VIEWS 07/23/2007 History: [...] NAM LUNA 07/23/2007 08:49 Electronically signed by: ANM LUNA 07/23/2007 09:49 Transcribed: 07/23/2007 09:39 AMK Procedure Note Provider, Historical - 07/23/2007 [facility] [address] [place], [place] [address] Admit Date: 07/23/2007 BISHOP LANDRY Sex: F Admit Prov: SCOOTER WOOD Date:1965 Primary Care Prov: SCOOTER WOOD CMRN: [id number] Room: [facility] SSN: [id number] IMAGING SERVICES Ordering Prov: N/A Interpretation RIGHT [...] AM CDT Narrative 07/23/2007 9:49 AM CDT [address] [address] [place], [place] [address] Admit Date: 07/23/2007 BISHOP LANDRY Sex: F Admit Prov: SCOOTER WOOD Date: 1965 Primary Care Prov: SCOOTER WOOD CMRN: [id number] Room: [facility] SSN: [id number] IMAGING SERVICES Ordering Prov: N/A Accession Number: [id number] Interpretation LEFT ANKLE 2 VIEWS 07/23/2007 Clinical [...] AMK Procedure Note Provider, Historical - 07/23/2007 [address] [address] [place], [place] [address] Admit Date: 07/23/2007 BISHOP LANDRY Sex: F Admit Prov: SCOOTER WOOD Date:1965 Primary Care Prov: SCOOTER WOOD CMRN: [id number] Room: [facility] SSN: [id number] IMAGING SERVICES Ordering Prov: N/A Interpretation LEFT [...] unspecified documented in this encounter Care Teams Jewelry Maker Relationship Specialty Start Date End Date Jt Zamora MD [address] [place] [phone] PCP - General Family Practice 12/17/11 documented as of this encounter
--- OUTSIDE RECORDS SUMMARY | 2024-12-28 11:09 | XMS_ITS | Encounter Summary ---
Author Organization [facility] Address [address] [facility] [place] [address] Care Team Providers Care Fleet Dispatch Manager Name Role Phone Jt Zamora MD Primary Care Provider [phone] Encounter Details Date Type Department Care Team (Late st Contact Info) Description 09/18/2018 Lab Requisition [facility] [address] [facility] [place], [place] [id number] Jeaneth Funez MD [address] [facility] [address] [place] [address] Social History Tobacco Use Types Packs/Day Years Used Date Smoking Tobacco: Every Day Cigarettes Smokeless Tobacco: Never Alcohol Use Standard Drinks/Week Comments Yes 0 (1 standard drink = 0.6 oz pur e alcohol) 2 - 3 times a week Comments Unknown Sex and Gender Information Value Date Recorded Sex Assigned at Not on file 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 Jar 0. 6:00 PM T DERMATOPATHOLOGY LABORATORY [...] characteristic determined by the Dermatopathology Laboratory at [facility], directed by Dr. Luke Lara. These tests need not be, and therefore are not, approved by the [place] Food and Drug Administration. The tests are used for clinical purposes. Billing Codes Specimen Charges Stain Charges 79529 1 9 6:00 PM CDT DERMATOPATHOLOGY LABORATORY Embedded Images 6:00 PM CDT DERMATOPATHOLOGY LABORATORY Pathology/Cytolog y TISSUE SPECIMEN FROM SKIN / Unknown 09/17/2018 09/18/2018 6:36 AM CDT us Jeaneth Funez MD LAB - PATHOLOGY/CYTOLOGY ORD ERABLES Final Result DERMATOPATHOLOGY LABORATORY [facility] - Department of Dermatology [address] [facility] [place], [address] Lab [address] [phone] documented in this encounter Visit Diagnoses Not on filedocumented in this encounter Care Teams Fleet Dispatch Manager Relationship Specialty Start Date End Date Jt Zamora MD PCP - General 04/12/08 documented as of this encounter
[2024-12-28 11:29] LABS: Anion Gap 8 mmol/L (4-12); Blood Urea Nitrogen 20 mg/dL (7-17); Calcium 9.7 mg/dL (8.4-10.2); Carbon Dioxide 28 mmol/L (22-30); Chloride 100 mmol/L (98-107); Estimated Glomerular Filt Rate > 60; Glucose 125 mg/dL (65-110); Potassium 4.4 mmol/L (3.4-5.0); Sodium 136 mmol/L (137-145)
== END 2024-12-28 10:20 | disposition home or self-care (01) ==
PROVIDERS: Anesthesiology; PCP Internal Medicine; Visit Provider Surgery
DX: E11.9 Type 2 diabetes mellitus without complications (principal); K43.2 Incisional hernia without obstruction or gangrene
CPT/HCPCS: 36415; 80048; 86850; 86900; 86901

== ENCOUNTER 2025-01-03 02:39 | Day surgery (SDC) | payer BC, SELFPAY ==
--- OUTSIDE RECORDS SUMMARY | 2004-07-03 09:00 | XMS_ITS | Continuity of Care Document ---
Author Organization [facility] Address [address] [place] [address] [address] [place] [address] Phone Care Team Providers Care Cardiovascular Surgeon Name Role Phone Mehnaz Velazquez Unavailable Unavailable Advance Directives Directive Yes / No Effective Date File Name No Information Encounters Encounter Description Practice Location Reason(s) For Visit Diagnoses Date Provider Providers Copied on Encounter [facility], [address] [place] [address] [address], [place], [place], [id number], [place] tel:[phone] [facility] No Information Mar-0 8-200 5 Caroline Darby. [address] , [address], [place], [address], [place]. tel:[phone] Family History Family Member Type Diagnosis Age [...]
[2024-12-24 08:43] VITALS: BMI 40.8
--- NOTE | 2024-12-24 09:16 | PC.NURSE ---
Report to the Outpatient Waiting Room, entrance under the green pavilion located off [facility], at time _0600 on date _01/03/2025 . Planned Procedure Time: _0730 .? Time changes happen often and if your time is changed the preop area will call you the afternoon before. - You and your visitor will be asked to self-screen and do not enter if you have any COVID symptoms. Please call surgeon if you need to reschedule. - A mask is optional within the hospital at this time. Patients may have clear liquids (water, carbonated beverages, clear teas, apple juice) until 3 hours prior to surgery with a maximum of 20 ounces. - No food from midnight until time of surgery and no smoking, or chewing tobacco (or any form of nicotine). No chewing gum, candy or mints. - Infants may have breast milk until 4 hours before surgery, formula 6 hours prior to surgery. - Children will be allowed to drink immediately following surgery.? If applicable, please bring a bottle or sippy cup to assist with drinking. Juice, water, soda, and popsicles are readily available.? For infants on formula, please bring formula the day of surgery.? Pacifiers are allowed. Take only the following medications with a SIP of water on the morning of surgery: _Tylenol, Metoprolol, tramadol, and Trelegy DO NOT STOP ANY OF YOUR OTHER PRESCRIPTION MEDICATIONS PRIOR TO SURGERY EXCEPT THE FOLLOWING Hold all vitamins and supplements for 3 days per anesthesiologist. Medications to discontinue per physician ___Vitamins 3 days prior. Please no make-up, nail spanish, hairspray, perfume, deodorant, or body powder the day of surgery.? No jewelry (including any body piercings) or valuables the day of surgery, leave them at home.? Please take a shower or bath the night before, or the morning of, surgery with an antibacterial soap.? Wear comfortable, loose fitting clothing.? Children are encouraged to wear pajamas. - Jewelry must be removed prior to entering the operating room.? Rings and piercings that are not removed may be cut off. - The hospital will not accept responsibility for valuables.? - Please leave all valuables, including medications, at home the day of surgery. If you are going home after surgery, a licensed feedmobile driver must drive you home.? - NO public transportation without another adult if you receive anesthesia. - We recommend that an adult stay with you for 24 hours following discharge. - We also recommend that you do not drive, make important decision, drink alcoholic beverages, or take any drugs that were not prescribed by your health care provider for at least 24 hours after your discharge time. For Pediatric surgeries, we recommend two adults accompany the child home. Follow any additional instructions given to you from your surgeon. Telephone instructions given to __Lia and asked if any additional questions and then verbalized understanding. Patient advised to call surgeon office or pre surgery nurse liaison [phone] if any additional questions.
[2025-01-03] VITALS (16 sets, daily range): BP systolic 113–137; BP diastolic 54–74; PULSE 70–81; RESP 12–18; TEMP 36.4–36.6; O2SAT 92–96
--- OUTSIDE RECORDS SUMMARY | 2025-01-03 02:41 | XMS_ITS | Encounter Summary ---
Author Organization [employer] [facility] Address 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 Gender Identity Not on file Sexual Orientation [...] STRONG POSITIVE: >59 Lab test performed by: [facility] [id number] [place] [phone] LAURITA GARCIA MD Blood specimen (specimen) 07/23/2007 7:47 AM CDT 07/23/2007 9:21 AM CDT Scooter Wood MD CHEMISTRY ORDERABLES Final Resu lt Performing Organization Address [facility] Co de Phone Number [facility] [address] [place] [address] * ALDOLASE (07/23/2007 7:47 AM CDT) [facility] ALDOLASE 3.3 < OR = 8.1 U/L [facility] Comment: Lab test performed by: [facility] [id number] [address] [employer] [place] [phone] LAURITA GARCIA MD Blood specimen (specimen) 07/23/2007 7:47 AM CDT 07/23/2007 8:06 AM CDT Scooter Wood MD CHEMISTRY ORDERABLES Final Resu lt Performing Organization Address City/[facility] Co de Phone Number [facility] [address] [place] [address] * RHEUMATOID FACTOR (07/23/2007 7:47 AM CDT) Pathologist [facility] RHEUMATOID FACTOR <6.0 0.0 - 13.9 IU/mL [facility] Blood specimen (specimen) 07/23/2007 7:47 AM CDT 07/23/2007 8:04 AM CDT us Scooter Wood MD CHEMISTRY ORDERABLES Final Resu lt Performing Organization Address [facility] Co de Phone Number [facility] [address] [place] [address] * COMPLEMENT C4 (07/23/2007 7:47 AM CDT) COMPLEMENT C4 20 10 - 40 mg/dL [facility] Blood specimen (specimen) 07/23/2007 7:47 AM CDT 07/23/2007 8:04 AM CDT us Scooter Wood MD CHEMISTRY ORDERABLES Final Resu lt Performing Organization Address [facility] Phone Number [facility] [address] [place] [address] * COMPLEMENT C3 (07/23/2007 7:47 AM CDT) COMPLEMENT C3 158 90 - 180 mg/dL [facility] Blood specimen (specimen) 07/23/2007 7:47 AM CDT 07/23/2007 8:04 AM CDT us Scooter Wood MD CHEMISTRY ORDERABLES Final Resu lt Performing Organization Address [facility] de Phone Number [facility] [address] [place] [address] * LUZ PANEL (07/23/2007 7:47 AM CDT) LUZ SCREEN NEGATIVE NEGATIVE [facility] Comment: Lab test performed by: [employer] JASBIR [id number] [phone] LAURITA GARCIA MD DNA AUTOABS DOUBLE STRANDED 4 IU/mL [facility] Comment: IU/mL INTERPRETATION ===== < OR = 4 NEGATIVE 5 - 9 INDETERMINATE > OR = 10 POSITIVE Lab test performed by: [facility] [id number] [place] [address] LAURITA GARCIA MD SCLERODERMA AB SCL 70 <1.0 NEG <1.0 NEG Index [facility] Comment: Lab test performed by: [facility] [address] [place] [phone] LAURITA GARCIA MD SJOGRENS ABS (SSB) <1.0 NEG <1.0 NEG Index [facility] Comment: Lab test performed by: [facility] [address] [place] [phone] LAURITA GARCIA MD RUSS ABS, SM/LAB ANIMAL TECHNOLOGIST AB <1.0 NEG <1.0 NEG Index [facility] Comment: Lab test performed by: [facility] [address] [place] [phone] LAURITA GARCIA MD RUSS ABS, SM AB <1.0 NEG <1.0 NEG Index [facility] SJOGRENS ABS (SSA) <1.0 NEG <1.0 NEG Index [facility] Blood specimen (specimen) 07/23/2007 7:47 AM CDT 07/23/2007 8:04 AM CDT Scooter Wood MD CHEMISTRY ORDERABLES Edited [facility] [address] [place] [address] * (ABNORMAL) HLA B27 (07/23/2007 7:47 AM CDT) HLA B27 DETECTED(A ) [facility] Comment: THE HLA B27 ANTIGEN IS PRESENT IN 9% OF AND 4% OF BLACK POPULATIONS. THIS ANTIGEN IS SEEN WITH A FREQUENCY OF 90% IN PATIENTS WITH ANKYLOSING SPONDYLITIS AND A FREQUENCY OF 80% IN PATIENTS WITH REITERS DISEASE. Lab test performed by: [facility] [phone] LAURITA GARCIA MD Blood specimen (specimen) 07/23/2007 7:47 AM CDT 07/23/2007 8:06 AM CDT us Scooter Wood MD CHEMISTRY ORDERABLES Final Resu lt Performing Organization Address [facility] Phone Number [facility] [address] [place] [address] * HEPATITIS C ANTIBODY (07/23/2007 7:47 AM CDT) HEPATITIS C AB NON-REACTI VE NON-REACT SHERINE [facility] SIGNAL TO CUT OFF 0.05 <1.00 [facility] Comment: Lab test performed by: [employer] JASBIR [id number] [phone] LAURITA GARCIA MD Blood specimen (specimen) 07/23/2007 7:47 AM CDT 07/23/2007 8:04 AM CDT us Scooter Wood MD CHEMISTRY ORDERABLES Final Resu lt Performing Organization Address [facility] de Phone Number [facility] [address] [place] [address] * HEPATITIS B SURFACE AB (07/23/2007 7:47 AM CDT) HEPATITIS B SURFACE AB <5 mIU/mL [facility] Comment: PATIENT DOES NOT HAVE IMMUNITY TO HEPATITIS B VIRUS. Lab test performed by: [employer] JASBIR [id number] [phone] LAURITA GARCIA MD Blood specimen (specimen) 07/23/2007 7:47 AM CDT 07/23/2007 8:06 AM CDT us Scooter Wood MD CHEMISTRY ORDERABLES Final Resu lt Performing Organization Address [facility]/ZIP Co de Phone Number [facility] [address] [place] [address] * TSH (07/23/2007 7:47 AM CDT) [facility] TSH 1.07 0.27 - 4.20 uU/mL [facility] Blood specimen (specimen) 07/23/2007 7:47 AM CDT 07/23/2007 8:04 AM CDT Scooter Wood MD CHEMISTRY ORDERABLES Final Resu lt Performing Organization Address [facility] Co de Phone Number [facility] [address] [place] [address] * (ABNORMAL) LACTATE DEHYDROGENASE (07/23/2007 7:47 AM CDT) [facility] LD (LACTATE DEHYDROGENASE) 129(L) 135 - 214 U/L [facility] Blood specimen (specimen) 07/23/2007 7:47 AM CDT 07/23/2007 8:04 AM CDT Scooter Wood MD CHEMISTRY ORDERABLES Final Resu lt Performing Organization Address [facility] Co de Phone Number [facility] [address] [place] [address] * (ABNORMAL) CBC WITH DIFFERENTIAL (07/23/2007 7:47 AM CDT) [facility] HEMOGLOBIN 15.4(H) 11.8 - 14.8 g/dL [facility] [...] LAB EOSINOPHILS 2 0 - 7 % [facility] EOSINOPHIL ABSOLUTE 0.22 0.00 - 0.70 K/uL [facility] LYMPHOCYTES 23 16 - 45 % [facility] LYMPHOCYTE ABSOLUTE 2.15 0.70 - 4.50 [...] LAB NEUTROPHILS 70 45 - 70 % [facility] NEUTROPHIL ABSOLUTE 6.62 1.90 - 7.00 K/uL [facility] Blood specimen (specimen) 07/23/2007 7:47 AM CDT 07/23/2007 8:29 AM CDT us Scooter Wood MD HEMATOLOGY ORDERABLES Edited INTERFACE SYSTEM Refer to clinic/hospital department [facility] [address] [place] [address] * CK (07/23/2007 7:47 AM CDT) CK 50 10 - 145 U/L [facility] Blood specimen (specimen) 07/23/2007 7:47 AM CDT 07/23/2007 8:04 AM CDT us Scooter Wood MD CHEMISTRY ORDERABLES Final Resu lt [facility] [address] [place] [address] * (ABNORMAL) COMPREHENSIVE METABOLIC PANEL (07/23/2007 7:47 [...] and non- Americans is available on the [facility] Intranet at: [email or web address] Select: Lab Policies and Procedures Select: Reference Ranges - GFR Blood specimen (specimen) 07/23/2007 7:47 AM CDT 07/23/2007 8:04 AM CDT us Scooter Wood MD CHEMISTRY ORDERABLES Edited Performing Organization Address [facility] de Phone Number [facility] [address] [place] [address] * C-REACTIVE PROTEIN (07/23/2007 7:47 AM CDT) Pathologist [facility] CRP 0.3 0.0 - 0.8 mg/dL [facility] Blood specimen (specimen) 07/23/2007 7:47 AM CDT 07/23/2007 8:04 AM CDT us Scooter Wood MD CHEMISTRY ORDERABLES Final Resu lt Performing Organization Address [facility] de Phone Number [facility] [address] [place] [address] * SEDIMENTATION RATE (07/23/2007 7:47 AM CDT) Pathologist [facility] ESR (SEDIMENTATION RATE) 6 0 - 20 mm/hr [facility] Blood specimen (specimen) 07/23/2007 7:47 AM CDT 07/23/2007 8:29 AM CDT us Scooter Wood MD HEMATOLOGY ORDERABLES Final Res ult Performing Organization Address [facility] de Phone Number [facility] [address] [place] [address] * URINALYSIS (07/23/2007 7:47 AM CDT) CLARITY UA Clear Clear [facility] BILIRUBIN UA Negative Negative [facility] PROTEIN UA Negative Negative [facility] LEUKOCYTE ESTERASE UA Negative Negative [facility] SPECIFIC GRAVITY UA 1.009 1.001 - 1.035 [facility] GLUCOSE UA Negative Negative [facility] BLOOD UA Negative Negative [facility] COLOR UA Pale Yellow [facility] NITRITE UA Negative Negative [facility] UROBILINOGEN UA <1 <=1 mg/dL [facility] PH UA 5.0 5.0 - 8.0 [facility] KETONES UA Negative Negative [facility] 07/23/2007 7:47 AM CDT 07/23/2007 8:32 AM CDT Scooter Wood MD URINE ORDERABLES Final Result [facility] [address] [place] [address] * XR WRIST 2 VW RIGHT (07/23/2007 7:12 AM CDT) Anatomical Region Laterality Modality Wrist / Hand Other 07/23/2007 7:12 AM CDT Narrative 07/23/2007 9:39 AM CDT [facility] [address] [place], [place] [address] Admit Date: 07/23/2007 BISHOP LANDRY Sex: F Admit Prov: KARELUMUDonya Leung Date: 1965 Primary Care Prov: KARELUMUDonya Leung CMRN: [id number] Room: SYMONE SSN: [id number] IMAGING SERVICES Ordering Prov: N/A Accession Number: [id number] Interpretation RIGHT WRIST TWO VIEWS 07/23/2007 Clinical [...] AMK Procedure Note Provider, Historical - 07/23/[address] [address] Admit Date: 07/23/2007 BISHOP LANDRY Sex: F Admit Prov: KARELSCOOTER Madhu Date:1965 Primary Care Prov: KARELUMUDonya Leung CMRN: [id number] Room: [facility] SSN: [address] [place] [address] IMAGING SERVICES Ordering Prov: N/A Interpretation RIGHT [...] AM CDT Narrative 07/23/2007 9:38 AM CDT [address] [address] [place], [place] [address] Admit Date: 07/23/2007 BISHOP LANDRY Sex: F Admit Prov: SCOOTER WOOD Date: 1965 Primary Care Prov: SCOOTER WOOD CMRN: [id number] Room: [facility]: [id number] IMAGING SERVICES Ordering Prov: N/A Accession Number: [id number] Interpretation LEFT WRIST 2 VIEWS 07/23/2007 History: [...] Note Provider, Historical - 07/23/2007 [address] [place], [place] [address] Admit Date: 07/23/2007 BISHOP LANDRY Sex: F Admit Prov: SCOOTER WOOD Date:1965 Primary Care Prov: SCOOTER WOOD CMRN: [id number] Room: CHERELLENakul N: [id number] IMAGING SERVICES Ordering Prov: N/A Interpretation LEFT [...] AM CDT Narrative 07/23/2007 9:38 AM CDT [address] [address] Admit Date: 07/23/2007 LANDRY BISHOP Sex: F Admit Prov: SCOOTER WOOD Date: 1965 Primary Care Prov: SCOOTER WOOD CMRN: [id number] Room: [facility] SSN: [id number] IMAGING SERVICES Ordering Prov: N/A Accession Number: [id number] Interpretation RIGHT HAND TWO VIEWS 07/23/2007 Clinical [...] AMK Procedure Note Provider, Historical - 07/23/[address] [place] [place], [place] [address] Admit Date: 07/23/2007 BISHOP LANDRY Sex: F Admit Prov: SCOOTER WOOD Date:1965 Primary Care Prov: SCOOTER WOOD CMRN: [id number] Room: [facility] SSN: [address] [place] [address] IMAGING SERVICES Ordering Prov: N/A Interpretation RIGHT [...] AM CDT Narrative 07/23/2007 9:39 AM CDT [address] [address] [place], [place] [address] Admit Date: 07/23/2007 BISHOP LANDRY Sex: F Admit Prov: SCOOTER WOOD Date: 1965 Primary Care Prov: SCOOTER WOOD CMRN: [id number] Room: [facility] SSN: [address] [place] [address] IMAGING SERVICES Ordering Prov: N/A Accession Number: [id number] Interpretation LEFT HAND TWO VIEWS 07/23/2007 Clinical [...] - 07/23/2007 [facility] [address] [place], [place] [address] Admit Date: 07/23/2007 BISHOP LANDRY Sex: F Admit Prov: SCOOTER WOOD Date:1965 Primary Care Prov: SCOOTER WOOD CMRN: [id number] Room: [facility] SSN: [id number] IMAGING SERVICES Ordering Prov: N/A Interpretation LEFT [...] AM CDT Narrative 07/23/2007 9:49 AM CDT [address] [address] Admit Date: 07/23/2007 BISHOP LANDRY Sex: F Admit Prov: SCOOTER WOOD Date: 1965 Primary Care Prov: SCOOTER WOOD CMRN: [id number] [facility]: [id number] IMAGING SERVICES Ordering Prov: N/A Accession Number: [id number] Interpretation RIGHT FOOT 2 VIEWS 07/23/2007 History: [...] AMK Procedure Note Provider, Historical - 07/23/[address] [address] Admit Date: 07/23/2007 BISHOP LANDRY Sex: F Admit Prov: SCOOTER WOOD Date:1965 Primary Care Prov: SCOOTER WOOD CMRN: [id number] [facility]: [id number] IMAGING SERVICES Ordering Prov: N/A Interpretation RIGHT [...] AM CDT Narrative 07/23/2007 9:49 AM CDT [address] [address] [place], [place] [address] Admit Date: 07/23/2007 BISHOP LANDRY Sex: F Admit Prov: SCOOTER WOOD Date: 1965 Primary Care Prov: SCOOTER WOOD CMRN: [id number] Room: [facility] SSN: [id number] IMAGING SERVICES Ordering Prov: N/A Accession Number: [id number] Interpretation LEFT FOOT 2 VIEWS 07/23/2007 Clinical [...] AMK Procedure Note Provider, Historical - 07/23/2007 [address] [address] [place], [place] [address] Admit Date: 07/23/2007 BISHOP LANDRY Sex: F Admit Prov: SCOOTER WOOD Date:1965 Primary Care Prov: SCOOTER WOOD CMRN: [id number] Room: [facility] SSN: [id number] IMAGING SERVICES Ordering Prov: N/A Interpretation LEFT [...] AM CDT Narrative 07/23/2007 9:49 AM CDT [address] [address] Admit Date: 07/23/2007 BISHOP LANDRY Sex: F Admit Prov: SCOOTER WOOD Date: 1965 Primary Care Prov: SCOOTER WOOD CMRN: [id number] [facility]: [id number] IMAGING SERVICES Ordering Prov: N/A Accession Number: [id number] Interpretation RIGHT ANKLE 2 VIEWS 07/23/2007 History: [...] - 07/23/2007 [facility] [address] [place], [place] [address] Admit Date: 07/23/2007 BISHOP LANDRY Sex: F Admit Prov: SCOOTER WOOD Date:1965 Primary Care Prov: SCOOTER WOOD CMRN: [id number] Room: [facility] SSN: [id number] IMAGING SERVICES Ordering Prov: N/A Interpretation RIGHT [...] AM CDT Narrative 07/23/2007 9:49 AM CDT [address] [address] [place], [place] [address] Admit Date: 07/23/2007 BISHOP LANDRY Sex: F Admit Prov: SCOOTER WOOD Date: 1965 Primary Care Prov: SCOOTER WOOD CMRN: [id number] Room: [facility] SSN: [id number] IMAGING SERVICES Ordering Prov: N/A Accession Number: [id number] Interpretation LEFT ANKLE 2 VIEWS 07/23/2007 Clinical [...] AMK Procedure Note Provider, Historical - 07/23/2007 [address] [address] [place], [place] [address] Admit Date: 07/23/2007 BISHOP LANDRY Sex: F Admit Prov: SCOOTER WOOD Date:1965 Primary Care Prov: SCOOTER WOOD CMRN: [id number] Room: [facility] SSN: [id number] IMAGING SERVICES Ordering Prov: N/A Interpretation LEFT [...] unspecified documented in this encounter Care Teams Clinical Laboratory Technician Relationship Specialty Start Date End Date Jt Zamora MD [address] [place] [phone] PCP - General Family Practice 12/17/11 documented as of this encounter
--- OUTSIDE RECORDS SUMMARY | 2025-01-03 02:41 | XMS_ITS | Clinical Summary ---
Author Organization [facility] Address [address] [place] [address] Care Team Providers Care Galvanizing Pot Runner Name Role Phone Jt Zamora MD Primary Care Provider [phone] Source Comments [facility],non-owned Affiliates and Associated Physician Practices is amultiple site organization consisting of ambulatory clinics and hospital sitesin [place], [place], [place] and [place]. This disclosure is being madepursuant to the Care Everywhere program and may not contain all information available regarding this patient. Last updated 18.[facility] Allergies Active Allergy Reactions Criticality Noted Date [...] 81 mg by mouth once daily Active [id number]-[id number] ethyl esters (LOVAZA) 1 G capsule Take [...] on file Legal Sex Female 5:49 PM WAX BLENDER Gender Identity Not on file Sexual Orientation Not on file Last Filed Vital Signs Vital Sign Reading Time Taken Comments Blood Pressure 118/59 05/26/2018 10:57 AM WAX BLENDER Pulse 83 05/26/2018 10:57 AM WAX BLENDER Temperature 36.5 C (97.7 F) 05/26/2018 10:57 AM WAX BLENDER Respiratory Rate 20 04/16/2018 2:00 PM WAX BLENDER Oxygen Saturation 95% 04/16/2018 2:00 PM WAX BLENDER Inhaled Oxygen Concentration - - Weight 109.4 kg (241 lb 1.6 oz) 019 10:57 AM WAX BLENDER Height 162.6 cm (5' 4) 05/26/2018 10:5 7 AM WAX BLENDER Body Mass Index 41.38 05/26/2018 10:57 AM WAX BLENDER Plan of Treatment Health Maintenance Due Date [...] 02/12/2014 SCREENING FOR DIABETES 03/25/2021 8, 01/28/2013 Respiratory Syncytial Virus (RSV) Vaccine Pt: or over 60 yrs (1 - Risk 60-74 years 1-dose series) 2024 DEPRESSION SCREENING 04/28/2024 COVID-19 VACCINE (1 - 2023-2 5 season) 2024 INFLUENZA VACCINE (#1) 2024 HEPATITIS C SCREENING [...] COMPREHENSIVE METABOLIC PANEL Routine 03/25/2018 8:58 AM WAX BLENDER Elevated liver enzymes HEPATITIS C ANTIBODY Routine 01/28/2013 10:30 AM CDT from Last 3 Months or Most Recently Relevant to Health Maintenance Results * (ABNORMAL) COMPREHENSIVE METABOLIC PANEL (03/25/2018 8:58 AM WAX BLENDER) Glucose 112(H) 65 - 99 mg/dL [facility] [...] approximately 13% higher for people identified as -Andorran. eGFR by MDRD 110 > OR = [...] 29 U/L [facility] Comment: Test Performed at: [facility] [employer] [id number] [place] [phone] LAURITA RAMIREZ DO,MPH Blood BLOOD SPECIMEN / Unknown 03/25/2018 8:58 AM WAX BLENDER 03/25/2018 8:59 AM WAX BLENDER us Darwin Mackenzie MD LAB - CHEMISTRY ORDERABLES Yumiko christian Result [facility] [address] [place] [address] * HEPATITIS C ANTIBODY (01/28/2013 10:30 AM CDT) [facility] Hepatitis C Antibody NON-REACTI VE NON-REACT SHER[facility] ([facility]) Signal/Cutoff 0.03 <1.00 [facility] ([facility]) Comment: Test Performed at: [facility] [place] [address] [place] [address] LAURITA RAMIREZ DO,MPH 01/28/2013 10:3 0 AM CDT 01/28/2013 10:31 AM CDT us Kelly Caraballo MD LAB - CHEMISTRY OR DERABLES Edited Result - Final [facility] (U) [id number] from Last 3 Months or Most Recently Relevant to Health Maintenance [place] [address] ANTHEM Care Teams Galvanizing Pot Runner Relationship Specialty Start Date End Date Jt Zamora MD PCP - General 04/12/08
--- OUTSIDE RECORDS SUMMARY | 2025-01-03 02:41 | XMS_ITS | Patient Health Record ---
Author Organization [employer] Address [address] [facility] [address] [place] [address] Care Team Providers Care Handle Sander Operator Name Role Phone Jt Zamora MD Primary Care Provider Kirby Jeronimo Unavailable [phone] Soham Arnold MD Unavailable Unavailable Allergies Allergen [...] Problem Status W/U Status Risk Notes Problem [id number] Abnormal MRI of abdomen (R93.5) Active confirmed Plan Of Treatment Pending Test Test Name Order Date Initiate SIBO 08/08/2016 MRI Abdomen with Contrast 10/06/2018 Insurance Providers Payer Name Payer Address Payer Phone Subscriber Number Group Number Insured Name Patient Relationship to Insured Coverage Start Date Coverage End Date [employer] Access Choice PPO E2 [address] [place] [phone] [id number] Sagar Evans Spouse - patient is the [...]
--- OUTSIDE RECORDS SUMMARY | 2025-01-03 02:41 | XMS_ITS | Clinical Summary ---
Author Organization [facility] [place] [address] Address [address] [place] [address] Care Team Providers Care Active Directory Engineer Name Role Phone Soham Arnold MD Unavailable [phone] Jeaneth Funez MD Unavailable [phone] Walt Shetty MD Unavailable [phone] Jaime Cleaning MD Primary Care Provider [phone] Allergies Active Allergy Reactions Criticality Noted Date [...] hypertension 09/16/2023 Coronary artery disease invo lving campo coronary artery of campo heart without angina pectoris 09/16/2023 Morbid obesity [...] symptoms. Encouraged her to return to her grocery store clerk for additional review of her facial redness [...] history of psoriasis on her elbows. Saw grocery store clerk in the past who provided topical agents with resolution of skin rashes. 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 Cardiology at [address] [place] [address] Javier Melvin MD Coronary artery disease involving campo coronary artery of campo heart without angina pectoris (Primary Dx); Status post insertion of drug eluting coronary artery stent from Last 3 Months Surgical History Surgery Date Site/Laterality Comments IN TOTAL ABDOMINAL HYSTERECT W/WO RMVL TUBE OVARY Hysterectomy - (Added by TW Conv) BREAST SURGERY Breast Surgery Enlargement Procedure Bilateral - (Added by TW Conv) IN TONSILLECTOMY PRIMARY/SECONDARY <AGE 11 Tonsillectomy - (Added [...] or subcutaneous tissue History of urticaria - (tobacco packer jhon with negative allergy testing). (Added by [...] on file Legal Sex Female 8:03 PM IRON ASSORTER Gender Identity Not on file Sexual Orientation [...] Comment: For additional information, please refer to [email or web address] [email or web address]/[email or web address] (This link is being provided for informational/ [...] a test for HCV RNA (test code 64124) is suggested. For additional information please refer to http://SHERPA [email or web address]/MKH76z6 (This link is being provided for informational/ educational purposes only.) 12/06/2021 11:2 6 AM CDT 12/06/2021 11:28 AM CDT us Walt Shetty MD LAB MICROBIOLOGY - GENERAL ORD ERABLES Final Result [facility] [address] [place] [address] from Last 3 Months or Most Recently Relevant to Health Maintenance Insurance [place] [employer] Care Teams Active Directory Engineer Relationship Specialty Start Date End Date Jaime Cleaning MD [address] [facility] [address] [facility] [address] [place] [address] PCP - General Internal Medicine 11/01/21 Soham Arnold MD [address] [place] [address] [address] Referring Physician Cardiovascular Disease 02/03/19 Jeaneth Funez MD [address] [place] [address] Referring Physician Dermatology 03/10/19 Walt Shetty MD [address] [place] [address] Consulting Physician Rheumatology 11/01/21
--- OUTSIDE RECORDS SUMMARY | 2025-01-03 02:41 | XMS_ITS | Encounter Summary ---
Author Organization [facility] Address [address] [place] [address] Care Team Providers Care Batter Mixer Name Role Phone Jt Zamora MD Primary Care Provider [phone] Encounter Details Date Type Department Care Team (Late st Contact Info) Description 10/10/2008 Outpatient Historical [facility] Kirby Brambila MD [address] [place] [address] [place] [address] Heartburn; Diarrhea; Flatulence, Eructation, and Gas Pain Social History Tobacco Use Types Packs/Day Years Used Date Smoking Tobacco: Never Assessed Comments Unknown Sex and Gender Information Value Date Recorded Sex Assigned at Not on file Legal Sex Female 5:32 AM SERVICE MEMBER Gender Identity Not on file Sexual Orientation Not on file documented as of this encounter Plan of Treatment Not on file documented as of this encounter Procedures Procedure Name Priority Date/Time Associated Diagnosis Comments PATHOLOGY Routine 10/10/2008 10:24 AM CDT POC , URINE Routine 10/10/2008 7:43 AM CDT documented in this encounter Results * PATHOLOGY (10/10/2008 10:24 AM CDT) [place]AL [place] [facility] [address] [place], [place] [address] Patient: BISHOP LANDRY : 1965 Procedure Date: 10/10/2008 Accession Date: 10/10/2008 Case No: [id number] Ordering Dr: KIRBY BRAMBILA Case types AW, BW, FW, NW and SH [place] [facility] [place] SURGICAL PATHOLOGY & NON-GYNECOLOGIC CYTOPATHOLOGY REPORT [...] 12:32 pm Microscopic: Received are slides labeled [id number], Bishop Landry. Sections of small bowel contain four fragments of small intestinal mucosa showing no significant histopathologic abnormalities. There is no significant increase in intraepithelial or lamina propria inflammation. Villous architecture appears preserved, without evidence of villous blunting. There is no evidence of active inflammation, granulomas, or foveolar metaplasia. [facility] 10.11.2008 10:12 am Staging Form: No. ELECTRONIC SIGNATURE FOR LIANA TITUS M.D.- 10/11/08 03:24 pm INTERFACE SYSTEM 10/10/2008 10:2 4 AM CDT Kirby Brambila MD PATHOLOGY/CYTOLOGY ORDERABLES Final Result INTERFACE SYSTEM Refer to clinic/hospital department * POC , URINE (10/10/2008 7:43 AM CDT) , URINE POC Negative Negative [facility] 10/10/2008 7:43 AM CDT 10/10/2008 7:43 AM CDT Kirby Brambila MD POINT OF CARE TESTING Final R esult INTERFACE SYSTEM Refer to clinic/hospital department [facility] CLIA# [id number] [address] [place] [address] documented in this encounter Visit Diagnoses Diagnosis Heartburn Diarrhea Flatulence, eructation, and gas pain documented in this encounter Care Teams Batter Mixer Relationship Specialty Start Date End Date Jt Zamora MD [facility] [place] [address] PCP - General Family Practice 12/17/11 documented as of this encounter
--- OUTSIDE RECORDS SUMMARY | 2025-01-03 02:41 | XMS_ITS | Encounter Summary ---
Author Organization [facility] Address [address] [facility] [place] [address] Care Team Providers Care Informatica Mdm Architect Name Role Phone Jt Zamora MD Primary Care Provider [phone] Encounter Details Date Type Department Care Team (Late st Contact Info) Description 04/02/2018 Lab Requisition [facility] [address] [facility] [place] [phone] Jeaneth Funez MD [address] [facility] [address] [place] [address] Social History Tobacco Use Types Packs/Day Years Used Date Smoking Tobacco: Every Day Cigarettes Smokeless Tobacco: Never Alcohol Use Standard Drinks/Week Comments Yes 0 (1 standard drink = 0.6 oz pur e alcohol) 3 to 4 times a week Comments Unknown Sex and Gender Information Value Date Recorded Sex Assigned at Not on file Legal Sex Female 5:49 PM PRINT FINISHER Gender Identity Not on file Sexual Orientation Not on file documented as of this encounter Plan of Treatment Not on file documented as of this encounter Procedures Procedure Name Priority Date/Time Associated Diagnosis Comments DERMATOPATH TECHNICAL REPORT Routine 04/01/2018 12:00 AM PRINT FINISHER documented in this encounter Results * DERMATOPATH TECHNICAL REPORT (04/01/2018 12:00 AM PRINT FINISHER) Case Report Dermatopathology Report Case: [id number] Authorizing Provider: Jeaneth Funez MD Collected: 04/01/2018 12:00 AM Pathologist: Radha Lara MD Received: 04/02/2018 07:23 AM Specimen: Skin, right hand 12:18 PM [facility] Addendum 1 At the request of the diagnosing physician, the technical component for PAS and Colloidal Iron was performed by [facility] Dermatopathology Laboratory. 12:18 PM [facility] Addendum electronically signed by Radha Lara MD on 04/07/2018 at 1218 PRINT FINISHER Clinical History PSO vs CTD. [place] scaly patches. 12:18 PM [facility] Gross Description Specimen A: Received is one formalin filled container labeled with the patient's name and designated right hand. The specimen consists of a punch measuring [id number], bisected. Jar 0. [facility]ermat[facility] performed the technical component only. 12:18 PM [facility] Embedded Images 12:18 PM [facility] DISCLAIMER An external and internal positive and negative controls are appropriate for the histochemical, immunohistochemical and immunofluorescence stain(s) in this case (if any), except where stated explicitly. The performance characteristics of the stain(s) cited in this report were developed and its performance characteristic determined by the Dermatopathology Laboratory at [facility]. These tests need not be, and therefore are not, approved by the [place] Food and Drug Administration. The tests are used for clinical purposes. 12:18 PM [facility] DERMATOPATH[facility] at [address] PRINT FINISHER Pathology/Cytolog y TISSUE SPECIMEN FROM SKIN / Unknown 04/01/2018 04/02/2018 7:23 AM PRINT FINISHER us Jeaneth Funez MD LAB - PATHOLOGY/CYTOLOGY ORD ERABLES Edited Result - Final DERMATOPATHOLOGY LABORATORY [facility] [place] Department of Dermatology [address] [facility], 5th [place] [address], [facility] [phone] documented in this encounter Visit Diagnoses Not on filedocumented in this encounter Care Teams Informatica Mdm Architect Relationship Specialty Start Date End Date Jt Zamora MD PCP - General 04/12/08 documented as of this encounter
--- OUTSIDE RECORDS SUMMARY | 2025-01-03 02:41 | XMS_ITS | Clinical Summary ---
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
--- OUTSIDE RECORDS SUMMARY | 2025-01-03 02:41 | XMS_ITS | Encounter Summary ---
Author Organization [facility] Address [address] [facility] [place] [address] Care Team Providers Care Wax Pot Tender Name Role Phone Jt Zamora MD Primary Care Provider [phone] Encounter Details Date Type Department Care Team (Late st Contact Info) Description 09/18/2018 Lab Requisition [facility] [address] [facility], [place] [phone] Jeaneth Funez MD [address] [facility] [address] [place] [address] Social History Tobacco Use Types Packs/Day Years Used Date Smoking Tobacco: Every Day Cigarettes Smokeless Tobacco: Never Alcohol Use Standard Drinks/Week Comments Yes 0 (1 standard drink = 0.6 oz pur e alcohol) 2 - 3 times a week Comments Unknown Sex and Gender Information Value Date Recorded Sex Assigned at Not on file Legal Sex Female 5:49 PM 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 Jar 0. 6:00 PM T DERMATOPATHOLOGY LABORATORY [...] by the Dermatopathology Laboratory at [facility], directed by Dr. Luke Lara. These tests need not be, and therefore are not, approved by the [place] Food and Drug Administration. The tests are used for clinical purposes. Billing Codes Specimen Charges Stain Charges 95533 1 9 6:00 PM CDT DERMATOPATHOLOGY LABORATORY Embedded Images 6:00 PM CDT DERMATOPATHOLOGY LABORATORY Pathology/Cytolog y TISSUE SPECIMEN FROM SKIN / Unknown 09/17/2018 09/18/2018 6:36 AM CDT us Jeaneth Funez MD LAB - PATHOLOGY/CYTOLOGY ORD ERABLES Final Result DERMATOPATHOLOGY LABORATORY [facility] - Department of Dermatology [address] [facility], 5th Floor Lab [address] [phone] documented in this encounter Visit Diagnoses Not on filedocumented in this encounter Care Teams Wax Pot Tender Relationship Specialty Start Date End Date Jt Zamora MD PCP - General 04/12/08 documented as of this encounter
[2025-01-03] MEDS: LACTATED RINGERS 1,000 ML 30 ML IV CONT ×3 (06:30→13:09)
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
[2025-01-03] MEDS: KETOROLAC 15 MG/ML VIAL (*BKC) IV PUSH ×2 (07:00→10:23)
--- NOTE | 2025-01-03 07:26 | WPDHPUPDATE1 ---
History and Physical Update Update Date/Time: 01/03/25 07:26 History and Physical has been reviewed, including an updated exam of the patient. There are NO changes in the patient's condition. Risks, benefits, and alternatives have been discussed and questions answered. Patient agrees to proceed with procedure.
[2025-01-03] MEDS: CLINDAMYCIN 900 MG/D5W 50 ML 900 MG/50 ML PIGGYBACK 50 MG IVPB (07:37)
[2025-01-03] MEDS: SCOPOLAMINE 1 MG PATCH 1 PATCH TRANSDERM (07:37)
[2025-01-03] MEDS: LIDO 1%/EPINEPHRINE 1:100,000 50 ML VIAL 30 ML INFILTRATE (08:50)
--- NOTE | 2025-01-03 11:09 | P.OPB_ITS ---
Procedure Note - Brief Procedure Note - Brief Date of procedure: 01/03/25 Recurrent Incarcerated Incisional Hernia Post-op diagnosis: Same Procedure performed: Robotic assisted laparoscopic eTEP incarcerated recurrent incisional hernia repa ir with [place] Synecor composite mesh, bilateral retrorectus release component separation Surgeon: Epi Goldberg MD Web Systems Developer: JADA Monzon Anesthesia: GETA Implants: [place] Synecor Pre mesh [id number] Drains: No Packing: No Pathology: None sent Complications: No immediate complications Condition: Stable Disposition: PACU
--- NOTE | 2025-01-03 11:09 | PM.OP ---
Procedure Note - Brief Procedure Note - Brief Date of procedure: 01/03/25 Recurrent Incarcerated Incisional Hernia Post-op diagnosis: Same Procedure performed: Robotic assisted laparoscopic eTEP incarcerated recurrent incisional hernia repair with [place] Synecor composite mesh, bilateral retrorectus release component separation Surgeon: Epi Goldberg MD Slot Host: JADA Monzon Anesthesia: GETA Implants: [place] Synecor Pre mesh [id number] Drains: No Packing: No Pathology: None sent Complications: No immediate complications Condition: Stable Disposition: PACU
[2025-01-03] MEDS: fentaNYL CITRATE INJ (*CRX) 100 MCG/2 ML VIAL 25 MCG IV PUSH ×8 (12:20→13:20)
[2025-01-03] MEDS: oxyCODONE HCL (*CRX) 5 MG TAB IR PO (13:59)
[2025-01-03] MEDS: ONDANSETRON INJ 4 MG/2 ML VIAL IV PUSH (13:59)
--- NOTE | 2025-01-03 14:39 | SUR.PREOP ---
1430: Educated Patient on how to use IS.
--- NOTE | 2025-01-03 23:47 | W.PM.PROC2 ---
Procedure Note - Detailed Date of Procedure 01/03/25 Pre-op Diagnosis Recurrent Incarcerated Incisional Hernia Post-op Diagnosis Same Procedure Performed Robotic assisted laparoscopic extended total extraperitoneal (eTEP) incarcerated recurrent incisional hernia pair was in a core mesh and bilateral myofascial release. Surgeon Epi Goldberg MD Manager Channel Ivan Rudolph [employer] SALES SUPERVISOR Anesthesia General Indications Patient is a 59-year-old female who about 6 months ago underwent a open umbilical hernia repair without mesh and primary closure of defect with suture. During her recovery period she had episodes of severe coughing and she believes that during 1 of those episodes she broke her stitches and developed a recurrent hernia. On examination she had a recurrent bulge on the CT scan of the abdomen and pelvis showed a recurrence periumbilical ventral hernia with incarcerated omentum. She presents now for robotic assisted laparoscopic recurrent incarcerated incisional hernia repair via and extended transabdominal extraperitoneal approach With bilateral myofascial release to close the defect as well as repair of the epigastric abdominal diastasis and restore the anatomy and function of the linea alba. Findings The patient had a recurrent incarcerated paraumbilical ventral hernia containing omentum which was viable. The defect measured approximately 3.5x3cm. Above the hernia defect was at a epigastric diastasis with a diameter of the diastasis being about 2cm. The hernia was repaired with primary closure of the defect and plication of diastasis and then placement of a retro rectus piece of Rye Synecore Pre mesh measuring [id number] after bilateral myofascial release. Description of Procedure After informed consent was obtained the patient was brought to the operative room shows a supine position and general endotracheal anesthesia was administered. A Trevino catheter was placed to decompress the bladder. The abdomen was then prepped and draped in usual sterile fashion. A time-out was then performed correctly identifying the patient as well as the procedure to be performed. She was given preoperative IV antibiotics. The patient had a 3.5cm recurrent incarcerated paraumbilical ventral hernia with associated epigastric abdominal wall diastasis. As such I proceeded to repair the recurrent hernia and associated epigastric abdominal diastasis with primary closure of the defect and plication of the diastasis. To perform this I needed to perform a bilateral myofascial release. A small incision was made in the left subcostal area with a scalpel and then a 5mm Optiview port was then used to enter the left retrorectal space under direct visualization. Once in the space I insufflated with CO2 [id number] to achieve pneumoperitoneum in the retrorectal space. I 1st started to perform blunt dissection of the posterior rectus fascia off of the overlying rectus muscle fibers were blunt dissection with the camera. Once I had the dissection lateral to the left semilunar line I placed another 8mm robotic port. Then utilizing traditional laparoscopic hook cautery I continued to develop the space in the retro rectus plane by dividing tissue in the avascular plane all the way to linea alba and laterally to the semilunar line. The inferior epigastric vessels were identified and they were left up on the muscle fibers of the rectus muscle. Once I had adequate space I placed another 8mm robotic trocar port in the left lower quadrant the retro rectus space. I then placed another 8mm robotic trocar port in the left upper quadrant and the 5mm Opti port was switched out to a 12 laparoscopic trocar port. The [email or web address] robot was then docked to patient's bedside and the robotic arms were attached to the robotic ports. Robotic instruments were then advanced into the abdomen under visualization in the retrorectal space. Then utilizing robotic hook cautery after scrubbing of the procedure sitting down at the console I dissected the remaining portion of the retrorectal space. I then incised the left posterior contralateral retrorectus fascia about 1cm lateral to the linea alba in the epigastric region where the preperitoneal fat pad was located. I then performed a crossover maneuver keeping the preperitoneal fat below my dissection and not injuring the linea alba. Once I reached the right side I incised the right posterior rectus sheath to enter the space. A similar maneuver was then performed on the right side to dissect into the preperitoneal space all the way up to the xiphoid process and down to the periumbilical hernia defect. On the right side I dissected out to the right semilunar line and preserved the neurovascular bundles to the rectus muscle. I then dissected inferiorly to the incarcerated hernia in preperitoneal space and the transversalis space as I was below the arcuate line at the umbilicus. Once I had developed a volcano sign I then proceeded to open the hernia sac and within the hernia sac was incarcerated viable omentum. This was released from the hernia sac and reduced into the abdomen. I continued this dissection bilaterally until I reached the groin regions. Performing the bilateral myofascial release allowed me to perform medialization of the anterior rectus sheath bilaterally for the purpose of reconstruction of the linea alba. I then proceeded to place a running #1 PDS suture starting just below the umbilicus and ran the suture closing the fascial defect and repairing the epigastric diastasis easily without tension. I then chose a piece of Rye Synecore Pre mesh measuring [id number] for the repair. The corners of the mesh which was rectangular were rounded off and discarded. The mesh was then rolled up and placed through the 12mm trocar port site into the retrorectal space. It was then placed on top of the posterior rectus fascia and peritoneum extending from the lower abdomen all the way up to the epigastric region and subxiphoid region. This covered the area of hernia repair and diastasis repair and gnosticism of the linea alba with wide overlap of at least 5cm circumferentially. The mesh laid very nicely in the dissected space without need for any fixation. Hemostasis was excellent. I then proceeded to remove all the robotic instruments from the abdomen and then I scrubbed back into the procedure. The [employer] robot was undocked from the patient's bedside and then utilizing the robotic laparoscope with a long laparoscopic instruments I made sure that the mesh continued to lay flat as a pneumoperitoneum in the retrorectal space was allowed to decompress. I irrigated the port sites with sterile saline solution. The anterior rectus fascia on the 12mm left upper quadrant trocar port was closed utilizing 0 Vicryl suture. All the trocar ports at the skin level were then closed utilizing a running subcuticular 4 Monocryl suture. I injected 1% lidocaine mixed with 0.5% Marcaine with epinephrine around all the port sites. The port sites were then covered with skin glue. The patient tolerated the procedure well no complications. All sponges, needles, and instrument counts were correct at the end procedure. EBL was _30__cc. The patient was awakened and taken to recovery in stable and satisfactory condition. Implants Rye Synecore Pre mesh 25 x 20 cm placed in retrorectus space after bilateral myofascial release and gnosticism of the linea alba. Estimated Blood Loss 30 Drains No Packing No Pathology None sent Complications No immediate complications Condition Stable Disposition PACU [facility] Billing Surgery - Charge Forward: Surgery Billing
== END 2025-01-03 14:40 | disposition home or self-care (01) ==
PROVIDERS: PCP Internal Medicine; Visit Provider Surgery
PROC: (CPT 49616; principal; 2025-01-03 07:30)
DX: K43.0 Incisional hernia with obstruction, without gangrene (principal); M62.08 Separation of muscle (nontraumatic), other site; E11.9 Type 2 diabetes mellitus without complications; F17.210 Nicotine dependence, cigarettes, uncomplicated; E66.01 Morbid (severe) obesity due to excess calories; Z68.41 Body mass index [BMI] 40.0-44.9, adult
CPT/HCPCS: 49616; 15734; S2900; 82948; A9270; C1781; J1171; J1200; J1885; J2003; J2004; J2250; J2405; J2704; J3010; J7120

== ENCOUNTER 2025-01-05 14:34 | Inpatient (IN) | payer BC, SELFPAY ==
--- OUTSIDE RECORDS SUMMARY | 2004-07-03 09:00 | XMS_ITS | Continuity of Care Document ---
Author Organization [facility] Address [address] [place] [address] [address] [place] [address] Phone Care Team Providers Care Clinic Licensed Practical Nurse Name Role Phone Mehnaz Velazquez Unavailable Unavailable Advance Directives Directive Yes / No Effective Date File Name No Information Encounters Encounter Description Practice Location Reason(s) For Visit Diagnoses Date Provider Providers Copied on Encounter [facility], [address] [place] [address] [address], [place], [place], [id number], [place] tel:[phone] [facility], [place] No Information Mar-0 8-200 5 Caroline Darby. [address] , [address], [place], [address], [place]. tel:[phone] Family History Family Member Type Diagnosis Age At Onset No Information Payers Payer name Insurance type Covered green party ID Authoriza tion(s) No Information Social History Type Description Quantity Date Captured Comments Sex Female Smoking Status No Information Chief Complaint And Reason For Visit No Information Reason For Referral Reason For Referral No Information History Of Present Illness Encounter Date Complaint History Of Prese nt Illness No Information Functional Status Date Functional Assessmen t No Information Instructions Date Instruction Additional Infor mation No Information Assessments Type Assessment Date No Information Patient Care Teams Name Effective Dates (start - stop) Status Members No Information
--- OUTSIDE RECORDS SUMMARY | 2004-07-03 09:00 | XMS_ITS | Continuity of Care Document ---
Author Organization [facility] Address [address] [place] [address] [address] [place] [address] Phone Care Team Providers Care Awning Maker And Installer Name Role Phone Mehnaz Velazquez Unavailable Unavailable Advance Directives Directive Yes / No Effective Date File Name No Information Encounters Encounter Description Practice Location Reason(s) For Visit Diagnoses Date Provider Providers Copied on Encounter [facility], [address] [place] [address] [address], [place], [place], [id number], [place] tel:[phone] [facility] No Information Mar-0 8-200 5 Caroline Darby. [address] , [address], [place], [address], [place]. tel:[phone] Family History Family Member Type Diagnosis Age At Onset No Information Payers Payer name Insurance type Covered libertarian ID Authoriza tion(s) No Information Social History [...]
[2025-01-05] VITALS (16 sets, daily range): BP systolic 101–151; BP diastolic 57–83; PULSE 75–84; RESP 18–22; TEMP 36.6–37.4; O2SAT 86–98; BMI 40.1
--- NOTE | ~2025-01-05 | XR_ITS ---
XR chest 2V 01/05/2025 15:22 Indication: Shortness of breath. Recent umbilical hernia repair. Procedure: 2 view chest Comparison: 10/27/2024 Findings: Heart size normal. Interval development of bibasilar infiltrates. No significant effusion. No edema or pneumothorax. Impression: 1: Bibasilar infiltrates may represent pneumonia and/or atelectasis. Reviewed, dictated and finalized at location O. Impression: 1: Bibasilar infiltrates may represent pneumonia and/or atelectasis.
--- NOTE | ~2025-01-05 | XR_ITS ---
EXAMINATION: XR abdomen/kub 1V DATE: 01/10/2025 11:40 INDICATION: Constipation. TECHNIQUE: A supine view of the abdomen on 3 radiographs was obtained. COMPARISON: Abdomen radiograph 07/10/2022 FINDINGS: There are no dilated loops of bowel. There is a large volume of stool in the colon. IMPRESSION: 1. Nonobstructive bowel gas pattern. Reviewed, dictated and finalized at location K.
--- NOTE | ~2025-01-05 | CT_ITS ---
CTA CHEST CT ABDOMEN PELVIS CLINICAL HISTORY: Hypoxemia, r/o PE, recent abdominal surgery . COMPARISON: Chest x-ray one day prior CT abdomen and pelvis 11/18/2024 CT lung screening 12/15/2024 TECHNIQUE: Helical CT performed from thoracic inlet to symphysis pubis 100 mL Omnipaque 350 Coronal, sagittal reformats. Multiplanar MIPS CT images acquired with automatic exposure control for dose reduction DLP: 1636 mGy-cm FINDINGS: CHEST- Thoracic Aorta: No dissection. No aneurysm. Pulmonary arteries: Normal caliber. No PE. Lungs/Pleura: Bibasilar atelectasis and airspace disease, right lung worse. Heart: Cardiomegaly. Coronary artery calcifications. Tracheobronchial tree: Bibasilar occlusive foci. Nodes: Small mediastinal and right hilar nodes. Bones: No acute bony abnormality. Soft tissues: Unremarkable. ABDOMEN/PELVIS- Liver: Enlarged. Steatosis. Gallbladder: Unremarkable. Spleen: Unremarkable. Pancreas: Unremarkable. Adrenal glands: Unremarkable. Kidneys: Right kidney- No hydronephrosis. No renal stones. Small cyst. Left kidney- No hydronephrosis. No renal stones. Distal esophagus/stomach: Unremarkable. Small bowel loops: Normal caliber and wall thickness. Colon: A few diverticula. Normal caliber and wall thickness. Normal RLQ appendix. Nodes: No enlarged nodes. Peritoneum: No ascites. No free air. Urinary bladder: Unremarkable. Uterus: Removed. Adnexa: No masses. Bones: No acute bony abnormality. Soft tissues: Upper abdominal wall subcutaneous emphysema. Periumbilical soft tissue fluid collection. Possible hernia mesh along anterior abdominal wall. Abdominal aorta: Unremarkable. Atherosclerotic disease. IVC: Unremarkable. Main portal vein, SMV: Patent. IMPRESSION: CHEST- 1. No PE. 2. Bibasilar aspiration and atelectasis. ABDOMEN/PELVIS- 1. Periumbilical fluid collection subcutaneous soft tissues; seroma and/or abscess. 2. Upper abdominal wall subcutaneous emphysema consistent with postoperative change. 3. No acute abnormality within abdomen and pelvis. Reviewed, dictated and finalized at location R. IMPRESSION: CHEST- 1. No PE. 2. Bibasilar aspiration and atelectasis. ABDOMEN/PELVIS- 1. Periumbilical fluid collection subcutaneous soft tissues; seroma and/or abs cess. 2. Upper abdominal wall subcutaneous emphysema consistent with postoperative c hange. 3. No acute abnormality within abdomen and pelvis.
--- OUTSIDE RECORDS SUMMARY | 2025-01-05 15:05 | XMS_ITS | Clinical Summary ---
Author Organization [facility] Administrative Offices Address [address] [place] [address] Care Team Providers Care Ror Engineer Name Role Phone Jt Zamora MD Primary Care Provider [phone] Social History Tobacco Use Types Packs/Day Years Used Date Smoking Tobacco: Never Assessed Comments Unknown Sex and Gender Information Value Date Recorded Sex Assigned at Not on file Legal Sex Female 5:32 AM LOOP SEWER Gender Identity Not on file Sexual Orientation [...] patient's age to complete this topic Insurance [employer] P[employer] Care Teams Ror Engineer Relationship Specialty Start Date End Date Jt Zamora MD [address] [place] [id number] PCP - General Family Practice 12/17/11
--- OUTSIDE RECORDS SUMMARY | 2025-01-05 15:05 | XMS_ITS | Encounter Summary ---
Author Organization [employer] [facility] Address [address] [place] [address] Care Team Providers Care Vamp Strap Ironer Name Role Phone Jt Zamora MD Primary Care Provider [phone] Encounter Details Date Type Department Care Team (Latest Contact Info) Description 07/23/2007 Outpatient Historical [facility] Scooter Del Cid MD Unspecified Arthropathy, Site Unspecified Social History Tobacco Use Types Packs/Day Years Used Date Smoking Tobacco: Never Assessed Comments Unknown Sex and Gender Information Value Date Recorded Sex Assigned at Not on file Legal Sex Female 5:32 AM DENTAL FLOSS PACKER Gender Identity Not on file Sexual Orientation [...] IGG (07/23/2007 7:47 AM CDT) Pathologist [facility] CYCLIC CITRULLINATED PEPTIDE AB IGG <20 Units [facility] Comment: REFERENCE RANGE: NEGATIVE: <20 WEAK POSITIVE: 20-39 MODERATE/STRONG POSITIVE: 40-59 STRONG POSITIVE: >59 Lab test performed by: [employer] [id number] [place] [phone] LAURITA GARCIA MD Blood specimen (specimen) 07/23/2007 7:47 AM CDT 07/23/2007 9:21 AM CDT Scooter Wood MD CHEMISTRY ORDERABLES Final Resu lt Performing Organization Address [facility] Co de Phone Number [facility] [address] [place] [address] * ALDOLASE (07/23/2007 7:47 AM CDT) [facility] ALDOLASE 3.3 < OR = 8.1 U/L [facility] Comment: Lab test performed by: [employer] [id number] CHARISMA [employer]BEKA[employer]ata [phone] LAURITA GARCIA MD Blood specimen (specimen) 07/23/2007 7:47 AM CDT 07/23/2007 8:06 AM CDT Scooter Wood MD CHEMISTRY ORDERABLES Final Resu lt Performing Organization Address [facility] Co de Phone Number [facility] [address] [place] [address] * RHEUMATOID FACTOR (07/23/2007 7:47 AM CDT) Pathologist [facility] RHEUMATOID FACTOR <6.0 0.0 - 13.9 IU/mL [facility] Blood specimen (specimen) 07/23/2007 7:47 AM CDT 07/23/2007 8:04 AM CDT us Scooter Wood MD CHEMISTRY ORDERABLES Final Resu lt Performing Organization Address [facility] Co de Phone Number [facility] [address] [place] [address] * COMPLEMENT C4 (07/23/2007 7:47 AM CDT) COMPLEMENT C4 20 10 - 40 mg/dL [facility] Blood specimen (specimen) 07/23/2007 7:47 AM CDT 07/23/2007 8:04 AM CDT us Scooter Wood MD CHEMISTRY ORDERABLES Final Resu lt Performing Organization Address [facility] Phone Number [facility] [address] [place] [address] * COMPLEMENT C3 (07/23/2007 7:47 AM CDT) COMPLEMENT C3 158 90 - 180 mg/dL [facility] Blood specimen (specimen) 07/23/2007 7:47 AM CDT 07/23/2007 8:04 AM CDT us Scooter Wood MD CHEMISTRY ORDERABLES Final Resu lt Performing Organization Address [facility] de Phone Number [facility] [address] [place] [address] * LUZ PANEL (07/23/2007 7:47 AM CDT) LUZ SCREEN NEGATIVE NEGATIVE [facility] Comment: Lab test performed by: [employer] [id number] [phone] LAURITA GARCIA MD DNA AUTOABS DOUBLE STRANDED 4 IU/mL [facility] Comment: IU/mL INTERPRETATION ===== < OR = 4 NEGATIVE 5 - 9 INDETERMINATE > OR = 10 POSITIVE Lab test performed by: [employer] [id number] [place] [address] LAURITA GARCIA MD SCLERODERMA AB SCL 70 <1.0 NEG <1.0 NEG Index [facility] Comment: Lab test performed by: [employer] [address] [place] [phone] LAURITA GARCIA MD SJOGRENS ABS (SSB) <1.0 NEG <1.0 NEG Index [facility] Comment: Lab test performed by: [employer] [address] [place] [phone] LAURITA GARCIA MD RUSS ABS, SM/DIGITAL MEDIA SPECIALIST AB <1.0 NEG <1.0 NEG Index [facility] Comment: Lab test performed by: [employer] [address] [place] [phone] LAURITA GARCIA MD RUSS ABS, SM AB <1.0 NEG <1.0 NEG Index [facility] SJOGRENS ABS (SSA) <1.0 NEG <1.0 NEG Index [facility] Blood specimen (specimen) 07/23/2007 7:47 AM CDT 07/23/2007 8:04 AM CDT Scooter Wood MD CHEMISTRY ORDERABLES Edited [facility] [address] [place] [address] * (ABNORMAL) HLA B27 (07/23/2007 7:47 AM CDT) HLA B27 DETECTED(A ) [facility] Comment: THE HLA B27 ANTIGEN IS PRESENT IN 9% OF AND 4% OF BLACK POPULATIONS. THIS ANTIGEN IS SEEN WITH A FREQUENCY OF 90% IN PATIENTS WITH ANKYLOSING SPONDYLITIS AND A FREQUENCY OF 80% IN PATIENTS WITH REITERS DISEASE. Lab test performed by: [employer] [address] [place] [phone] LAURITA GARCIA MD Blood specimen (specimen) 07/23/2007 7:47 AM CDT 07/23/2007 8:06 AM CDT us Scooter Wood MD CHEMISTRY ORDERABLES Final Resu lt Performing Organization Address [facility] Phone Number [facility] [address] [place] [address] * HEPATITIS C ANTIBODY (07/23/2007 7:47 AM CDT) HEPATITIS C AB NON-REACTI VE NON-REACT SHERINE [facility] SIGNAL TO CUT OFF 0.05 <1.00 [facility] Comment: Lab test performed by: [employer] [address] [id number] [address] [phone] LAURITA GARCIA MD Blood specimen (specimen) 07/23/2007 7:47 AM CDT 07/23/2007 8:04 AM CDT us Scooter Wood MD CHEMISTRY ORDERABLES Final Resu lt Performing Organization Address [facility] de Phone Number [facility] [address] [place] [address] * HEPATITIS B SURFACE AB (07/23/2007 7:47 AM CDT) HEPATITIS B SURFACE AB <5 mIU/mL [facility] Comment: PATIENT DOES NOT HAVE IMMUNITY TO HEPATITIS B VIRUS. Lab test performed by: [employer] [id number] [phone] LAURITA GARCIA MD Blood specimen (specimen) 07/23/2007 7:47 AM CDT 07/23/2007 8:06 AM CDT us Scooter Wood MD CHEMISTRY ORDERABLES Final Resu lt Performing Organization Address [facility]/ZIP Co de Phone Number [facility] [address] [place] [address] * TSH (07/23/2007 7:47 AM CDT) [facility] TSH 1.07 0.27 - 4.20 uU/mL [facility] Blood specimen (specimen) 07/23/2007 7:47 AM CDT 07/23/2007 8:04 AM CDT Scooter Wood MD CHEMISTRY ORDERABLES Final Resu lt Performing Organization Address [facility] Co de Phone Number [facility] [address] [place] [address] * (ABNORMAL) LACTATE DEHYDROGENASE (07/23/2007 7:47 AM CDT) [facility] LD (LACTATE DEHYDROGENASE) 129(L) 135 - 214 U/L [facility] Blood specimen (specimen) 07/23/2007 7:47 AM CDT 07/23/2007 8:04 AM CDT Scooter Wood MD CHEMISTRY ORDERABLES Final Resu lt Performing Organization Address [facility] Co de Phone Number [facility] [address] [place] [address] * (ABNORMAL) CBC WITH DIFFERENTIAL (07/23/2007 7:47 AM CDT) [facility] HEMOGLOBIN 15.4(H) 11.8 - 14.8 g/dL [facility] [...] LAB EOSINOPHILS 2 0 - 7 % [facility] EOSINOPHIL ABSOLUTE 0.22 0.00 - 0.70 K/uL [facility] LYMPHOCYTES 23 16 - 45 % [facility] LYMPHOCYTE ABSOLUTE 2.15 0.70 - 4.50 [...] LAB NEUTROPHILS 70 45 - 70 % [facility] NEUTROPHIL ABSOLUTE 6.62 1.90 - 7.00 K/uL [facility] Blood specimen (specimen) 07/23/2007 7:47 AM CDT 07/23/2007 8:29 AM CDT us Scooter Wood MD HEMATOLOGY ORDERABLES Edited INTERFACE SYSTEM Refer to clinic/hospital department [facility] [address] [place] [address] * CK (07/23/2007 7:47 AM CDT) CK 50 10 - 145 U/L [facility] Blood specimen (specimen) 07/23/2007 7:47 AM CDT 07/23/2007 8:04 AM CDT us Scooter Wood MD CHEMISTRY ORDERABLES Final Resu lt [facility] [address] [place] [address] * (ABNORMAL) COMPREHENSIVE METABOLIC PANEL (07/23/2007 7:47 [...] and non- Americans is available on the [facility] Intranet at: [email or web address] Select: Lab Policies and Procedures Select: Reference Ranges - GFR Blood specimen (specimen) 07/23/2007 7:47 AM CDT 07/23/2007 8:04 AM CDT us Scooter Wood MD CHEMISTRY ORDERABLES Edited Performing Organization Address [facility] de Phone Number [facility] [address] [place] [address] * C-REACTIVE PROTEIN (07/23/2007 7:47 AM CDT) Pathologist [facility] CRP 0.3 0.0 - 0.8 mg/dL [facility] Blood specimen (specimen) 07/23/2007 7:47 AM CDT 07/23/2007 8:04 AM CDT us Scooter Wood MD CHEMISTRY ORDERABLES Final Resu lt Performing Organization Address [facility] de Phone Number [facility] [address] [place] [address] * SEDIMENTATION RATE (07/23/2007 7:47 AM CDT) Pathologist [facility] ESR (SEDIMENTATION RATE) 6 0 - 20 mm/hr [facility] Blood specimen (specimen) 07/23/2007 7:47 AM CDT 07/23/2007 8:29 AM CDT us Scooter Wood MD HEMATOLOGY ORDERABLES Final Res ult Performing Organization Address [facility] de Phone Number [facility] [address] [place] [address] * URINALYSIS (07/23/2007 7:47 AM CDT) CLARITY UA Clear Clear [facility] BILIRUBIN UA Negative Negative [facility] PROTEIN UA Negative Negative [facility] LEUKOCYTE ESTERASE UA Negative Negative [facility] SPECIFIC GRAVITY UA 1.009 1.001 - 1.035 [facility] GLUCOSE UA Negative Negative [facility] BLOOD UA Negative Negative [facility] COLOR UA Pale Yellow [facility] NITRITE UA Negative Negative [facility] UROBILINOGEN UA <1 <=1 mg/dL [facility] PH UA 5.0 5.0 - 8.0 [facility] KETONES UA Negative Negative [facility] 07/23/2007 7:47 AM CDT 07/23/2007 8:32 AM CDT Scooter Wood MD URINE ORDERABLES Final Result [facility] [address] [place] [address] * XR WRIST 2 VW RIGHT (07/23/2007 7:12 AM CDT) Anatomical Region Laterality Modality Wrist / Hand Other 07/23/2007 7:12 AM CDT Narrative 07/23/2007 9:39 AM CDT [facility] [address] [place], [place] [address] Admit Date: 07/23/2007 BISHOP LANDRY Sex: F Admit Prov: KARELUMUDonya Leung Date: 1965 Primary Care Prov: KARELUMUDonya Leung CMRN: [id number] Room: SYMONE SSN: [id number] IMAGING SERVICES Ordering Prov: N/A Accession Number: [id number] Interpretation RIGHT WRIST TWO VIEWS 07/23/2007 Clinical [...] AMK Procedure Note Provider, Historical - 07/23/[address] [address] Admit Date: 07/23/2007 BISHOP LANDRY Sex: F Admit Prov: KARELSCOOTER Madhu Date:1965 Primary Care Prov: KARELUMUDonya Leung CMRN: [id number] Room: BANNER SSN: [address] [place] [address] IMAGING SERVICES Ordering Prov: N/A Interpretation RIGHT [...] AM CDT Narrative 07/23/2007 9:38 AM CDT [address] [address] [place], [place] [address] Admit Date: 07/23/2007 BISHOP LANDRY Sex: F Admit Prov: SCOOTER WOOD Date: 1965 Primary Care Prov: SCOOTER WOOD CMRN: [id number] Room: SYMONE [facility]: [id number] IMAGING SERVICES Ordering Prov: N/A Accession Number: [id number] Interpretation LEFT WRIST 2 VIEWS 07/23/2007 History: [...] AMK Procedure Note Provider, Historical - 07/23/2007 [address] [place], [place] [address] Admit Date: 07/23/2007 BISHOP LANDRY Sex: F Admit Prov: SCOOTER WOOD Date:1965 Primary Care Prov: SCOOTER WOOD CMRN: [id number] Room: CHERELLENakul N: [id number] IMAGING SERVICES Ordering Prov: N/A Interpretation LEFT [...] AM CDT Narrative 07/23/2007 9:38 AM CDT [address] [address] Admit Date: 07/23/2007 LANDRY BISHOP Sex: F Admit Prov: SCOOTER WOOD Date: 1965 Primary Care Prov: SCOOTER WOOD CMRN: [id number] Room: BANNER SSN: [id number] IMAGING SERVICES Ordering Prov: N/A Accession Number: [id number] Interpretation RIGHT HAND TWO VIEWS 07/23/2007 Clinical [...] AMK Procedure Note Provider, Historical - 07/23/[address] [place] [place], [place] [address] Admit Date: 07/23/2007 BISHOP LANRDY Sex: F Admit Prov: SCOOTER OWOD Date:1965 Primary Care Prov: SCOOTER WOOD CMRN: [id number] Room: BANNER SSN: [address] [place] [address] IMAGING SERVICES Ordering Prov: N/A Interpretation RIGHT [...] AM CDT Narrative 07/23/2007 9:39 AM CDT [address] [address] [place], [place] [address] Admit Date: 07/23/2007 BISHOP LANDRY Sex: F Admit Prov: SCOOTER WOOD Date: 1965 Primary Care Prov: SCOOTER WOOD CMRN: [id number] Room: BANNER SSN: [address] [place] [address] IMAGING SERVICES Ordering Prov: N/A Accession Number: [id number] Interpretation LEFT HAND TWO VIEWS 07/23/2007 Clinical [...] of left hand. . Dictated by: NAM ULNA 07/23/2007 08:44 Electronically signed by: NAM LUNA 07/23/2007 09:39 Transcribed: 07/23/2007 09:34 AMK Procedure Note Provider, Historical - 07/23/2007 [facility] [address] [place], [place] [address] Admit Date: 07/23/2007 BISHOP LANDRY Sex: F Admit Prov: SCOOTER WOOD Date:1965 Primary Care Prov: SCOOTER WOOD CMRN: [id number] Room: SYMONE SSN: [id number] IMAGING SERVICES Ordering Prov: N/A Interpretation LEFT [...] AM CDT Narrative 07/23/2007 9:49 AM CDT [address] [address] Admit Date: 07/23/2007 BISHOP LANDRY Sex: F Admit Prov: SCOOTER WOOD Date: 1965 Primary Care Prov: SCOOTER WOOD CMRN: [id number] [facility] [id number] IMAGING SERVICES Ordering Prov: N/A Accession Number: [id number] Interpretation RIGHT FOOT 2 VIEWS 07/23/2007 History: [...] AMK Procedure Note Provider, Historical - 07/23/[address] [address] Admit Date: 07/23/2007 BISHOP LANDRY Sex: F Admit Prov: SCOOTER WOOD Date:1965 Primary Care Prov: SCOOTER WOOD CMRN: [id number] [facility]: [id number] IMAGING SERVICES Ordering Prov: N/A Interpretation RIGHT [...] AM CDT Narrative 07/23/2007 9:49 AM CDT [address] [address] [place], [place] [address] Admit Date: 07/23/2007 BISHOP LANDRY Sex: F Admit Prov: SCOOTER WOOD Date: 1965 Primary Care Prov: SCOOTER WOOD CMRN: [id number] Room: Nakul SSN: [id number] IMAGING SERVICES Ordering Prov: N/A Accession Number: [id number] Interpretation LEFT FOOT 2 VIEWS 07/23/2007 Clinical [...] AMK Procedure Note Provider, Historical - 07/23/2007 [address] [address] [place], [place] [address] Admit Date: 07/23/2007 BISHOP LANDRY Sex: F Admit Prov: SCOOTER WOOD Date:1965 Primary Care Prov: SCOOTER WOOD CMRN: [id number] Room: Nakul SSN: [id number] IMAGING SERVICES Ordering Prov: N/A Interpretation LEFT [...] AM CDT Narrative 07/23/2007 9:49 AM CDT [address] [address] Admit Date: 07/23/2007 BISHOP LANDRY Sex: F Admit Prov: SCOOTER WOOD Date: 1965 Primary Care Prov: SCOOTER WOOD CMRN: [id number] [facility]: [id number] IMAGING SERVICES Ordering Prov: N/A Accession Number: [id number] Interpretation RIGHT ANKLE 2 VIEWS 07/23/2007 History: [...] Provider, Historical - 07/23/2007 [facility] [address] [place], [place] [address] Admit Date: 07/23/2007 BISHOP LANDRY Sex: F Admit Prov: SCOOTER WOOD Date:1965 Primary Care Prov: SCOOTER WOOD CMRN: [id number] Room: BANNER SSN: [id number] IMAGING SERVICES Ordering Prov: N/A Interpretation RIGHT [...] AM CDT Narrative 07/23/2007 9:49 AM CDT [address] [address] [place], [place] [address] Admit Date: 07/23/2007 BISHOP LANDRY Sex: F Admit Prov: SCOOTER WOOD Date: 1965 Primary Care Prov: SCOOTER WOOD CMRN: [id number] Room: BANNER SSN: [id number] IMAGING SERVICES Ordering Prov: N/A Accession Number: [id number] Interpretation LEFT ANKLE 2 VIEWS 07/23/2007 Clinical [...] AMK Procedure Note Provider, Historical - 07/23/2007 [address] [address] [place], [place] [address] Admit Date: 07/23/2007 BISHOP LANDRY Sex: F Admit Prov: SCOOTER WOOD Date:1965 Primary Care Prov: SCOOTER WOOD CMRN: [id number] Room: Nakul SSN: [id number] IMAGING SERVICES Ordering Prov: N/A Interpretation LEFT [...] unspecified documented in this encounter Care Teams Vamp Strap Ironer Relationship Specialty Start Date End Date Jt Zamora MD [address] [place] [phone] PCP - General Family Practice 12/17/11 documented as of this encounter
--- OUTSIDE RECORDS SUMMARY | 2025-01-05 15:05 | XMS_ITS | Encounter Summary ---
Author Organization [facility] Address [address] [facility] [place] [address] Care Team Providers Care Heater Planer Operator Name Role Phone Jt Zamora MD Primary Care Provider [phone] Encounter Details Date Type Department Care Team (Late st Contact Info) Description 04/02/2018 Lab Requisition [facility] [address] [facility] [place] [id number] Jeaneth Funez MD [address] [facility] [address] [place] [address] Social History Tobacco Use Types Packs/Day Years Used Date Smoking Tobacco: Every Day Cigarettes Smokeless Tobacco: Never Alcohol Use Standard Drinks/Week Comments Yes 0 (1 standard drink = 0.6 oz pur e alcohol) 3 to 4 times a week Comments Unknown Sex and Gender Information Value Date Recorded Sex Assigned at Not on file Legal Sex Female 5:49 PM GENETIC COUNSELLOR Gender Identity Not on file Sexual Orientation Not on file documented as of this encounter Plan of Treatment Not on file documented as of this encounter Procedures Procedure Name Priority Date/Time Associated Diagnosis Comments DERMATOPATH TECHNICAL REPORT Routine 04/01/2018 12:00 AM GENETIC COUNSELLOR documented in this encounter Results * DERMATOPATH TECHNICAL REPORT (04/01/2018 12:00 AM GENETIC COUNSELLOR) Case Report Dermatopathology Report Case: [id number] Authorizing Provider: Jeaneth Funez MD Collected: 04/01/2018 12:00 AM Pathologist: Radha Lara MD Received: 04/02/2018 07:23 AM Specimen: Skin, right hand 12:18 PM [facility] DERMAT[facility]ORATORY Addendum 1 At the request of the diagnosing physician, the technical component for PAS and Colloidal Iron was performed by [facility] Dermatopathology Laboratory. 12:18 PM [facility] DERMATOPATHOLOGY [facility]ORATORY Addendum electronically signed by Radha Lara MD on 04/07/2018 at 1218 GENETIC COUNSELLOR Clinical History PSO vs CTD. [place] scaly patches. 12:18 PM [facility] DERMATOPATHOLOGY [facility]ORATORY Gross Description Specimen A: Received is one formalin filled container labeled with the patient's name and designated right hand. The specimen consists of a punch measuring [id number], bisected. Jar 0. [facility] Dermatopathology Laboratory performed the technical component only. 12:18 PM [facility] [...] characteristic determined by the Dermatopathology Laboratory at [facility]. These tests need not be, and therefore are not, approved by the [place] Food and Drug Administration. The tests are used for clinical purposes. 12:18 PM [facility] DERMATOPATHOLOGY LABORATORY at [address]39 GENETIC COUNSELLOR Pathology/Cytolog y TISSUE SPECIMEN FROM SKIN / Unknown 04/01/2018 04/02/2018 7:23 AM GENETIC COUNSELLOR us Jeaneth Funez MD LAB - PATHOLOGY/CYTOLOGY ORD ERABLES Edited Result - Final DERMATOPATHOLOGY LABORATORY [facility] - Department of Dermatology [address] [facility] [place] [address], [facility] [phone] documented in this encounter Visit Diagnoses Not on filedocumented in this encounter Care Teams Heater Planer Operator Relationship Specialty Start Date End Date Jt Zamora MD PCP - General 04/12/08 documented as of this encounter
--- OUTSIDE RECORDS SUMMARY | 2025-01-05 15:05 | XMS_ITS | Patient Health Record ---
Author Organization [employer] Address [address] [facility] [address] [place] [address] Care Team Providers Care Hot Strip Mill Inspector Name Role Phone Jt Zamora MD Primary Care Provider Kirby Jeronimo Unavailable [phone] Soham Arnold MD Unavailable Unavailable Allergies Allergen [...] Problem Status W/U Status Risk Notes Problem [id number] Abnormal MRI of abdomen (R93.5) Active confirmed Plan Of Treatment Pending Test Test Name Order Date Initiate SIBO 08/08/2016 MRI Abdomen with Contrast 10/06/2018 Insurance Providers Payer Name Payer Address Payer Phone Subscriber Number Group Number Insured Name Patient Relationship to Insured Coverage Start Date Coverage End Date [employer] PPO E2 [address] [place] [address] [id number] Sagar Evans Spouse - patient is the [...]
--- OUTSIDE RECORDS SUMMARY | 2025-01-05 15:05 | XMS_ITS | Clinical Summary ---
Author Organization [facility] Address [address] [place] [address] Care Team Providers Care Power Wheelchair Mechanic Name Role Phone Jt Zamora MD Primary Care Provider [phone] Source Comments [facility],non-owned Affiliates and Associated Physician Practices is amultiple site organization consisting of ambulatory clinics and hospital sitesin [place], [place], [place] and [place]. This disclosure is being madepursuant to the Care Everywhere program and may not contain all information available regarding this patient. Last updated 18.[facility] Allergies Active Allergy Reactions Criticality Noted Date [...] 81 mg by mouth once daily Active saldn-1-donk ethyl esters (LOVAZA) 1 G capsule Take [...] on file Legal Sex Female 5:49 PM SOLE EDGE INKER MACHINE Gender Identity Not on file Sexual Orientation Not on file Last Filed Vital Signs Vital Sign Reading Time Taken Comments Blood Pressure 118/59 05/26/2018 10:57 AM SOLE EDGE INKER MACHINE Pulse 83 05/26/2018 10:57 AM SOLE EDGE INKER MACHINE Temperature 36.5 C (97.7 F) 05/26/2018 10:57 AM SOLE EDGE INKER MACHINE Respiratory Rate 20 04/16/2018 2:00 PM SOLE EDGE INKER MACHINE Oxygen Saturation 95% 04/16/2018 2:00 PM SOLE EDGE INKER MACHINE Inhaled Oxygen Concentration - - Weight 109.4 kg (241 lb 1.6 oz) 019 10:57 AM SOLE EDGE INKER MACHINE Height 162.6 cm (5' 4) 05/26/2018 10:5 7 AM SOLE EDGE INKER MACHINE Body Mass Index 41.38 05/26/2018 10:57 AM SOLE EDGE INKER MACHINE Plan of Treatment Health Maintenance Due Date [...] COMPREHENSIVE METABOLIC PANEL Routine 03/25/2018 8:58 AM SOLE EDGE INKER MACHINE Elevated liver enzymes HEPATITIS C ANTIBODY Routine 01/28/2013 10:30 AM CDT from Last 3 Months or Most Recently Relevant to Health Maintenance Results * (ABNORMAL) COMPREHENSIVE METABOLIC PANEL (03/25/2018 8:58 AM SOLE EDGE INKER MACHINE) Glucose 112(H) 65 - 99 mg/dL [facility] [...] approximately 13% higher for people identified as -Lithuanian. eGFR by MDRD 110 > OR = [...] 29 U/L [facility] Comment: Test Performed at: [facility] [id number] [place] [phone] LAURITA RAMIREZ DO,MPH Blood BLOOD SPECIMEN / Unknown 03/25/2018 8:58 AM SOLE EDGE INKER MACHINE 03/25/2018 8:59 AM SOLE EDGE INKER MACHINE us Darwin Mackenzie MD LAB - CHEMISTRY ORDERABLES Yumiko christian Result [facility] [address] [place] [address] * HEPATITIS C ANTIBODY (01/28/2013 10:30 AM CDT) [facility] Hepatitis C Antibody NON-REACTI VE NON-REACT SHERNIE [facility] (SLU) Signal/Cutoff 0.03 <1.00 [facility] ([facility]U) Comment: Test Performed at: [facility] [place] [address] [place] [address] LAURITA RAMIREZ DO,MPH 01/28/2013 10:3 0 AM CDT 01/28/2013 10:31 AM CDT us Kelly Caraballo MD LAB - CHEMISTRY OR DERABLES Edited Result - Final [facility] (U) [id number] from Last 3 Months or Most Recently Relevant to Health Maintenance [place] [address] [place] [address] ANTHEM Care Teams Power Wheelchair Mechanic Relationship Specialty Start Date End Date Jt Zamora MD PCP - General 04/12/08
--- OUTSIDE RECORDS SUMMARY | 2025-01-05 15:05 | XMS_ITS | Clinical Summary ---
Author Organization [facility] [address] Address [address] [place] [phone] Care Team Providers Care Tile Burner Name Role Phone Soham Arnold MD Unavailable [phone] Jeaneth Funez MD Unavailable [phone] Walt Shetty MD Unavailable [phone] Jaime Cleaning MD Primary Care Provider [phone] Allergies Active Allergy Reactions Criticality Noted Date [...] hypertension 09/16/2023 Coronary artery disease invo lving blackfeet coronary artery of blackfeet heart without angina pectoris 09/16/2023 Morbid obesity [...] symptoms. Encouraged her to return to her store sales consultant for additional review of her facial redness [...] history of psoriasis on her elbows. Saw store sales consultant in the past who provided topical agents with resolution of skin rashes. 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 Impaired glucose tolerance 04/27/2013 Standard chest x-ray abnormal 08/19/2012 Encounters Date Type Department Care Team Description 11/23/[address] [address] Randi Foreman 10/11/2024 8:30 AM CDT Office Visit [facility] Cardiology at [address] [place] [address] Javier Melvin MD Coronary artery disease involving blackfeet coronary artery of blackfeet heart without angina pectoris (Primary Dx); Status post insertion of drug eluting coronary artery stent from Last 3 Months Surgical History Surgery Date Site/Laterality Comments IA TOTAL ABDOMINAL HYSTERECT W/WO RMVL TUBE OVARY Hysterectomy - (Added by TW Conv) BREAST SURGERY Breast Surgery Enlargement Procedure Bilateral - (Added by TW Conv) IA TONSILLECTOMY PRIMARY/SECONDARY <AGE 12 Tonsillectomy - (Added [...] or subcutaneous tissue History of urticaria - (md pediatric allergist jhon with negative allergy testing). (Added by [...] on file Legal Sex Female 8:03 PM SIDE SAWYER Gender Identity Not on file Sexual [...] Comment: For additional information, please refer to http://Taggable.Surreal Ink/faq/QUK318 (This link is being provided for informational/ [...] a test for HCV RNA (test code 34509) is suggested. For additional information please refer to http://Taggable.Surreal Ink/faq/CGO65j7 (This link is being provided for informational/ educational purposes only.) 12/06/2021 11:2 6 AM CDT 12/06/2021 11:28 AM CDT us Walt Shetty MD LAB MICROBIOLOGY - GENERAL ORD ERABLES Final Result [facility] [address] [place] [address] from Last 3 Months or Most Recently Relevant to Health Maintenance Insurance [employer] Care Teams Tile Burner Relationship Specialty Start Date End Date Jaime Cleaning MD [address] [facility] [address] [place] [address] PCP - General Internal Medicine 11/01/21 Soham Arnold MD [address] [place] [address] [address] Referring Physician Cardiovascular Disease 02/03/19 Jeaneth Funez MD [address] [place] [address] Referring Physician Dermatology 03/10/19 Walt Shetty MD [address] [place] [address] Consulting Physician Rheumatology 11/01/21
--- OUTSIDE RECORDS SUMMARY | 2025-01-05 15:05 | XMS_ITS | Encounter Summary ---
Author Organization [facility] Address [address] [place] [address] Care Team Providers Care Ply Cutter Name Role Phone Jt Zamora MD Primary Care Provider [phone] Encounter Details Date Type Department Care Team (Late st Contact Info) Description 10/10/2008 Outpatient Historical [facility] Kirby Brambila MD [address] [place] [address] [place] [address] Heartburn; Diarrhea; Flatulence, Eructation, and Gas Pain Social History Tobacco Use Types Packs/Day Years Used Date Smoking Tobacco: Never Assessed Comments Unknown Sex and Gender Information Value Date Recorded Sex Assigned at Not on file Legal Sex Female 5:32 AM 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 Sections of small bowel contain four fragments of small intestinal mucosa showing no significant histopathologic abnormalities. There is no significant increase in intraepithelial or lamina propria inflammation. Villous architecture appears preserved, without evidence of villous blunting. There is no evidence of active inflammation, granulomas, or foveolar metaplasia. [facility] 10.11.2008 10:12 am Staging Form: No. ELECTRONIC SIGNATURE FOR LIANA TITUS M.D.- 10/11/08 03:24 pm INTERFACE SYSTEM 10/10/2008 10:2 4 AM CDT Kirby Brambila MD PATHOLOGY/CYTOLOGY ORDERABLES Final Result INTERFACE SYSTEM Refer to clinic/hospital department * POC , URINE (10/10/2008 7:43 AM CDT) , URINE POC Negative Negative [facility] 10/10/2008 7:43 AM CDT 10/10/2008 7:43 AM CDT Kirby Brambila MD POINT OF CARE TESTING Final R esult INTERFACE SYSTEM Refer to clinic/hospital department [facility] CLIA# [id number] [address] [place] [address] documented in this encounter Visit Diagnoses Diagnosis Heartburn Diarrhea Flatulence, eructation, and gas pain documented in this encounter Care Teams Ply Cutter Relationship Specialty Start Date End Date Jt Zamora MD [facility] [place] [address] PCP - General Family Practice 12/17/11 documented as of this encounter
--- OUTSIDE RECORDS SUMMARY | 2025-01-05 15:05 | XMS_ITS | Encounter Summary ---
Author Organization [facility] Address [address] [place] [address] Care Team Providers Care Junior Business Analyst Name Role Phone Jt Zamora MD Primary Care Provider [phone] Encounter Details Date Type Department Care Team (Late st Contact Info) Description 09/18/2018 Lab Requisition [facility] [address] [place] [id number] Jeaneth Funez MD [address] 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 Jar 0. 6:00 PM T DERMATOPATHOLOGY LABORATORY [...] the Dermatopathology Laboratory at [facility], directed by Dr. Luke Lara. These tests need not be, and therefore are not, approved by the [place] Food and Drug Administration. The tests are used for clinical purposes. Billing Codes Specimen Charges Stain Charges 05646 1 9 6:00 PM CDT DERMATOPATHOLOGY LABORATORY Embedded Images 6:00 PM CDT DERMATOPATHOLOGY LABORATORY Pathology/Cytolog y TISSUE SPECIMEN FROM SKIN / Unknown 09/17/2018 09/18/2018 6:36 AM CDT us Jeaneth Funez MD LAB - PATHOLOGY/CYTOLOGY ORD ERABLES Final Result DERMATOPATHOLOGY LABORATORY [facility] - Department of Dermatology [address] Lab [address] [phone] documented in this encounter Visit Diagnoses Not on filedocumented in this encounter Care Teams Junior Business Analyst Relationship Specialty Start Date End Date Jt Zamora MD PCP - General 04/12/08 documented as of this encounter
[2025-01-05 16:16] LABS: Hematocrit 46.8 % (37.0-47.0); Hemoglobin 15.5 g/dL (12.0-15.0); Immature Granulocyte Percent A 0.5 % (0-0.5); Lymphocytes Absolute Auto 1.32 K/mm3 (0.9-3.2); Mean Corpuscular HGB Conc 33.1 g/dl (32-36); Mean Corpuscular Hemoglobin 32.6 pg (26-34); Mean Corpuscular Volume 98.5 fl (80-100); Nucleated Red Blood Cells Absolute Auto 0.000 K/mm3 (0.0-0.012); Nucleated Red Blood Cells Perc 0.0 % (0.0-0.2); Platelet Count Result 190 k/mm3 (150-375); Red Blood Count 4.75 M/mm3 (4.2-5.4); White Blood Count 9.5 K/mm3 (4.5-10.0)
[2025-01-05 16:25] LABS: Alanine Aminotransferase 39 U/L (6-35); Albumin Level 4.4 g/dL (3.5-5.1); Alkaline Phosphatase 67 U/L (38-126); Anion Gap 10 mmol/L (4-12); Aspartate Amino Transferase 48 U/L (14-36); Bilirubin,Total 0.8 mg/dL (0.2-1.3); Blood Urea Nitrogen 13 mg/dL (7-17); Calcium 9.2 mg/dL (8.4-10.2); Carbon Dioxide 26 mmol/L (22-30); Chloride 101 mmol/L (98-107); Estimated CRCL calculation 132 ml/min; Estimated Glomerular Filt Rate > 60; Glucose 99 mg/dL (65-110); Potassium 3.9 mmol/L (3.4-5.0); Sodium 137 mmol/L (137-145); Total Protein 8.0 g/dL (6.3-8.2)
[2025-01-05 16:32] LABS: Add Urine Microscopic? YES; Appearance Urine Cloudy (Clear); Glucose Urine UA 3+ mg/dL (Negative); Leukocyte Esterase Ur 2+ LEU/UL (Negative); Nitrate Urine Positive (Negative); Non Pathogenic Casts 0-2; Specific Grav Ur 1.023 (1.001-1.035)
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
[2025-01-05] MEDS: IPRATROPIUM 0.5 MG/ALBUTEROL SULFATE 2.5 MG AMPUL.NEB 3 ML INHALATION ×2 (17:28→22:41)
[2025-01-05] MEDS: DOXYCYCLINE IV 100 MG in SODIUM CHLORIDE 0.9% IV 100 ML IVPB (17:28)
--- OUTSIDE RECORDS SUMMARY | 2025-01-05 17:53 | XMS_ITS | Encounter Summary ---
Author Organization [facility] Address [address] [facility] [place] [address] Care Team Providers Care Learning Support Aide Name Role Phone Jt Zamora MD Primary Care Provider [phone] Encounter Details Date Type Department Care Team (Late st Contact Info) Description 04/02/2018 Lab Requisition [facility] [address] [facility], [place] [phone] Jeaneth Funez MD [address] [facility] 3 [place] [address] Social History Tobacco Use Types Packs/Day Years Used Date Smoking Tobacco: Every Day Cigarettes Smokeless Tobacco: Never Alcohol Use Standard Drinks/Week Comments Yes 0 (1 standard drink = 0.6 oz pur e alcohol) 3 to 4 times a week Comments Unknown Sex and Gender Information Value Date Recorded Sex Assigned at Not on file Legal Sex Female 5:49 PM FINAL 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 BOAT Gender Identity Not on file Sexual Orientation Not on file documented as of this encounter Plan of Treatment Not on file documented as of this encounter Procedures Procedure Name Priority Date/Time Associated Diagnosis Comments DERMATOPATH TECHNICAL REPORT Routine 04/01/2018 12:00 AM FINAL ASSEMBLER BOAT documented in this encounter Results * DERMATOPATH TECHNICAL REPORT (04/01/2018 12:00 AM FINAL ASSEMBLER BOAT) Case Report Dermatopathology Report Case: [id number] Authorizing Provider: Jeaneth Funez MD Collected: 04/01/2018 12:00 AM Pathologist: Radha Lara MD Received: 04/02/2018 07:23 AM Specimen: Skin, right hand 12:18 PM [facility] DERMATOPATHOLOGY [facility]ORATORY Addendum 1 At the request of the diagnosing physician, the technical component for PAS and Colloidal Iron was performed by [facility] Dermatopathology Laboratory. 12:18 PM [facility] DERMATOPATHOLOGY LABORATORY Addendum electronically signed by Radha Lara MD on 04/07/2018 at 1218 FINAL ASSEMBLER BOAT Clinical History PSO vs CTD. Peabody scaly patches. 12:18 PM [facility] DERMATOPATHOLOGY LABORATORY Gross Description Specimen A: Received is one formalin filled container labeled with the patient's name and designated right hand. The specimen consists of a punch measuring [id number], bisected. Jar 0. [facility] Dermatopathology Laboratory performed the technical component only. 12:18 PM [facility] DERMATOPATHOLOGY LABORATORY Embedded Images 12:18 PM [facility] DERMATOPATHOLOGY LABORATORY DISCLAIMER An external and internal positive and negative controls are appropriate for the histochemical, immunohistochemical and immunofluorescence stain(s) in this case (if any), except where stated explicitly. The performance characteristics of the stain(s) cited in this report were developed and its performance characteristic determined by the Dermatopathology Laboratory at [facility]. These tests need not be, and therefore are not, approved by the [place] Food and Drug Administration. The tests are used for clinical purposes. 12:18 PM [facility] DERMATOPATHOLOGY LABORATORY at [address] FINAL ASSEMBLER BOAT Pathology/Cytolog y TISSUE SPECIMEN FROM SKIN / Unknown 04/01/2018 04/02/2018 7:23 AM FINAL ASSEMBLER BOAT us Jeaneth Funez MD LAB - PATHOLOGY/CYTOLOGY ORD ERABLES Edited Result - Final DERMATOPATHOLOGY LABORATORY [facility] - Department of Dermatology [address] [facility], 5th [place] [address], [facility] [phone] documented in this encounter Visit Diagnoses Not on filedocumented in this encounter Care Teams Learning Support Aide Relationship Specialty Start Date End Date Jt Zamora MD PCP - General 04/12/08 documented as of this encounter
--- OUTSIDE RECORDS SUMMARY | 2025-01-05 17:53 | XMS_ITS | Encounter Summary ---
Author Organization [facility] Address [address] [facility] [place] [address] Care Team Providers Care Malt House Supervisor Name Role Phone Jt Zamora MD Primary Care Provider [phone] Encounter Details Date Type Department Care Team (Late st Contact Info) Description 09/18/2018 Lab Requisition [facility] [address] [facility] [place] [phone] Jeaneth Funez MD [address] 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 Jar 0. 6:00 PM T DERMATOPATHOLOGY LABORATORY [...] characteristic determined by the Dermatopathology Laboratory at [facility], directed by Dr. Luke Lara. These tests need not be, and therefore are not, approved by the [place] Food and Drug Administration. The tests are used for clinical purposes. Billing Codes Specimen Charges Stain Charges 13475 1 9 6:00 PM CDT DERMATOPATHOLOGY LABORATORY Embedded Images 6:00 PM CDT DERMATOPATHOLOGY LABORATORY Pathology/Cytolog y TISSUE SPECIMEN FROM SKIN / Unknown 09/17/2018 09/18/2018 6:36 AM CDT us Jeaneth Funez MD LAB - PATHOLOGY/CYTOLOGY ORD ERABLES Final Result DERMATOPATHOLOGY LABORATORY [facility] - Department of Dermatology [address] [facility], 5th Floor Lab B [address] [phone] documented in this encounter Visit Diagnoses Not on filedocumented in this encounter Care Teams Malt House Supervisor Relationship Specialty Start Date End Date Jt Zamora MD PCP - General 04/12/08 documented as of this encounter
--- OUTSIDE RECORDS SUMMARY | 2025-01-05 17:53 | XMS_ITS | Clinical Summary ---
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
--- OUTSIDE RECORDS SUMMARY | 2025-01-05 17:53 | XMS_ITS | Encounter Summary ---
Author Organization [facility] Address [address] [place] [address] Care Team Providers Care Electrical Tester Battery Name Role Phone Jt Zamora MD Primary Care Provider [phone] Encounter Details Date Type Department Care Team (Late st Contact Info) Description 10/10/2008 Outpatient Historical [facility] Kirby Brambila MD [address] [place] [address] [place] [address] Heartburn; Diarrhea; Flatulence, Eructation, and Gas Pain Social History Tobacco Use Types Packs/Day Years Used Date Smoking Tobacco: Never Assessed Comments Unknown Sex and Gender Information Value Date Recorded Sex Assigned at Not on file 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 Gender Identity Not on file Sexual Orientation Not on file documented as of this encounter Plan of Treatment Not on file documented as of this encounter Procedures Procedure Name Priority Date/Time Associated Diagnosis Comments PATHOLOGY Routine 10/10/2008 10:24 AM CDT POC , URINE Routine 10/10/2008 7:43 AM CDT documented in this encounter Results * PATHOLOGY (10/10/2008 10:24 AM CDT) FINAL REPORT [facility] [address] [place], [place] [address] Patient: BISHOP LANDRY : 1965 Procedure Date: 10/10/2008 Accession Date: 10/10/2008 Case No: [id number] Ordering Dr: KIRBY BRAMBILA Case types AW, BW, FW, NW and SH are [place] [facility] [place] [place] SURGICAL PATHOLOGY & NON-GYNECOLOGIC CYTOPATHOLOGY REPORT [...] 12:32 pm Microscopic: Received are slides labeled [id number], Bishop Landry. Sections of small bowel contain four fragments of small intestinal mucosa showing no significant histopathologic abnormalities. There is no significant increase in intraepithelial or lamina propria inflammation. Villous architecture appears preserved, without evidence of villous blunting. There is no evidence of active inflammation, granulomas, or foveolar metaplasia. [facility] 10.11.2008 10:12 am Staging Form: No. ELECTRONIC SIGNATURE FOR LIANA TITUS M.D.- 10/11/08 03:24 pm INTERFACE SYSTEM 10/10/2008 10:2 4 AM CDT Kirby Brambila MD PATHOLOGY/CYTOLOGY ORDERABLES Final Result INTERFACE SYSTEM Refer to clinic/hospital department * POC , URINE (10/10/2008 7:43 AM CDT) , URINE POC Negative Negative [facility] 10/10/2008 7:43 AM CDT 10/10/2008 7:43 AM CDT Kirby Brambila MD POINT OF CARE TESTING Final R esult INTERFACE SYSTEM Refer to clinic/hospital department [facility] CLIA# [id number] [address] [place] [address] documented in this encounter Visit Diagnoses Diagnosis Heartburn Diarrhea Flatulence, eructation, and gas pain documented in this encounter Care Teams Electrical Tester Battery Relationship Specialty Start Date End Date Jt Zamora MD [facility] [place] [address] PCP - General Family Practice 12/17/11 documented as of this encounter
--- OUTSIDE RECORDS SUMMARY | 2025-01-05 17:53 | XMS_ITS | Clinical Summary ---
Author Organization [facility] [address] [facility] [address] Address [address] [place] [address] Care Team Providers Care Industrial Equipment Wirer Name Role Phone Soham Arnold MD Unavailable [phone] Jeaneth Funez MD Unavailable [phone] Walt Shetty MD Unavailable [phone] Jaime Cleaning MD Primary Care Provider [phone] Allergies Active Allergy Reactions Criticality Noted Date [...] hypertension 09/16/2023 Coronary artery disease invo lving redding coronary artery of redding heart without angina pectoris 09/16/2023 Morbid obesity [...] symptoms. Encouraged her to return to her director of enterprise strategy for additional review of her facial redness [...] history of psoriasis on her elbows. Saw director of enterprise strategy in the past who provided topical agents with resolution of skin rashes. 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iology at [address] [place] [address] Javier Melvin MD Coronary artery disease involving redding coronary artery of redding heart without angina pectoris (Primary Dx); Status post insertion of drug eluting coronary artery stent from Last 3 Months Surgical History Surgery Date Site/Laterality Comments [place] TOTAL ABDOMINAL HYSTERECT W/WO RMVL TUBE OVARY Hysterectomy - (Added by TW Conv) BREAST SURGERY Breast Surgery Enlargement Procedure Bilateral - (Added by TW Conv) [place] TONSILLECTOMY PRIMARY/SECONDARY <AGE 12 Tonsillectomy - (Added [...] subcutaneous tissue History of urticaria - (chronic condition 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 For additional information please refer to http://[employer]/faq/TUB45s3 (This link is being provided for informational/ educational purposes only.) 12/06/2021 11:2 6 AM CDT 12/06/2021 11:28 AM CDT us Walt Shetty MD LAB MICROBIOLOGY - GENERAL ORD ERABLES Final Result [facility] [address] [place] [address] from Last 3 Months or Most Recently Relevant to Health Maintenance Insurance invi NC invi NC invi NC Care Teams Industrial Equipment Wirer Relationship Specialty Start Date End Date Jaime Cleaning MD [address] [facility] [address] [facility] [address] [place] [address] PCP - General Internal Medicine 11/01/21 Soham Arnold MD [address] [place] [address] [address] Referring Physician Cardiovascular Disease 02/03/19 Jeaneth Funez MD [address] [place] [address] Referring Physician Dermatology 03/10/19 Walt Shetty MD [address] [place] [address] Consulting Physician Rheumatology 11/01/21
--- OUTSIDE RECORDS SUMMARY | 2025-01-05 17:53 | XMS_ITS | Clinical Summary ---
Author Organization [facility] Address [address] [place] [address] Care Team Providers Care Width Stripper Name Role Phone Jt Zamora MD Primary Care Provider Source Comments [facility],non-owned Affiliates and Associated Physician Practices is amultiple site organization consisting of ambulatory clinics and hospital sitesin [place], [place], [place] and [place]. This disclosure is being madepursuant to the Care Everywhere program and may not contain all information available regarding this patient. Last updated 18.[facility] Allergies Active Allergy Reactions Criticality Noted Date [...] 81 mg by mouth once daily Active [id number] ethyl esters (LOVAZA) 1 G capsule Take [...] on file Legal Sex Female 5:49 PM RADIO ANNOUNCER Gender Identity Not on file Sexual Orientation Not on file Last Filed Vital Signs Vital Sign Reading Time Taken Comments Blood Pressure 118/59 05/26/2018 10:57 AM RADIO ANNOUNCER Pulse 83 05/26/2018 10:57 AM RADIO ANNOUNCER Temperature 36.5 C (97.7 F) 05/26/2018 10:57 AM RADIO ANNOUNCER Respiratory Rate 20 04/16/2018 2:00 PM RADIO ANNOUNCER Oxygen Saturation 95% 04/16/2018 2:00 PM RADIO ANNOUNCER Inhaled Oxygen Concentration - - Weight 109.4 kg (241 lb 1.6 oz) 019 10:57 AM RADIO ANNOUNCER Height 162.6 cm (5' 4) 05/26/2018 10:5 7 AM RADIO ANNOUNCER Body Mass Index 41.38 05/26/2018 10:57 AM RADIO ANNOUNCER Plan of Treatment Health Maintenance Due Date [...] COMPREHENSIVE METABOLIC PANEL Routine 03/25/2018 8:58 AM RADIO ANNOUNCER Elevated liver enzymes HEPATITIS C ANTIBODY Routine 01/28/2013 10:30 AM CDT from Last 3 Months or Most Recently Relevant to Health Maintenance Results * (ABNORMAL) COMPREHENSIVE METABOLIC PANEL (03/25/2018 8:58 AM RADIO ANNOUNCER) Glucose 112(H) 65 - 99 mg/dL [facility] [...] approximately 13% higher for people identified as -Croatian. eGFR by MDRD 110 > OR = [...] 29 U/L [facility] Comment: Test Performed at: [facility] [id number] [place] [phone] LAURITA RAMIREZ DO,MPH Blood BLOOD SPECIMEN / Unknown 03/25/2018 8:58 AM RADIO ANNOUNCER 03/25/2018 8:59 AM RADIO ANNOUNCER us Darwin Mackenzie MD LAB - CHEMISTRY ORDERABLES Yumiko christian Result [facility] [id number] [place] [address] * HEPATITIS C ANTIBODY (01/28/2013 10:30 AM CDT) [facility] Hepatitis C Antibody NON-REACTI VE NON-REACT SHERINE [facility] ([facility]) Signal/Cutoff 0.03 <1.00 [facility] ([facility]) Comment: Test Performed at: [facility] [address] [place] [address] LAURITA RAMIREZ DO,MPH 01/28/2013 10:3 0 AM CDT 01/28/2013 10:31 AM CDT us Kelly Caraballo MD LAB - CHEMISTRY OR DERABLES Edited Result - Final [facility] (U) [id number] from Last 3 Months or Most Recently Relevant to Health Maintenance [place] [address] ANTHEM Care Teams Width Stripper Relationship Specialty Start Date End Date Jt Zamora MD PCP - General 04/12/08
[2025-01-05 18:21] LABS: Influenza A QL RT-PCR Negative (Negative); Influenza B QL RT-PCR Negative (Negative); RSV RNA, RT-PCR Negative (Negative); SARS-CoV-2 RNA PCR Negative (Negative)
[2025-01-05] MEDS: MORPHINE SULFATE (*CRX) 4 MG/ML INJ IV PUSH (18:32)
--- NOTE | 2025-01-05 19:51 | PC.NURSE ---
Dr Tucker in speaking with patient and
--- NOTE | 2025-01-05 20:44 | ADMGEN ---
This patient, Lia Westfall, was admitted to 2 Medical Room 240-01. Patient/family oriented to hospital policies and general routines including ID bracelet, bed and alarms, visiting hours, pain management, procedures, bathroom and other care routines, personal items, smoking policy, room service/diet, and visiting hours. Information on how to activate the Rapid Response Team has been discussed. Patient/Family are encouraged to report perceived risks to care and to ask questions if they do not understand what they are told or what they should do.
[2025-01-05] MEDS: ACETAMINOPHEN 500 MG TABLET 1000 MG PO (21:45)
[2025-01-05 22:15] LABS: Hemoglobin A1C 5.8 % (<5.7)
[2025-01-05 22:18] LABS: CRP 4.7 mg/dL (<1.0); Magnesium 1.9 mg/dL (1.6-2.3)
[2025-01-05 22:53] LABS: NT Pro B Type Natriuretic Pept 103 pg/mL (19.9-100)
[2025-01-05] MEDS: MAGNESIUM SULF 2 GM/WATER 50ML 2 GM/50 ML BAG IVPB (23:16)
[2025-01-05] MEDS: DOCUSATE SODIUM 100 MG CAPSULE PO (23:17)
[2025-01-05] MEDS: MONTELUKAST SODIUM 10 MG TABLET PO (23:17)
[2025-01-05] MEDS: CYCLOBENZAPRINE HCL 5 MG TABLET PO (23:18)
[2025-01-06] VITALS (15 sets, daily range): BP systolic 110–145; BP diastolic 48–80; PULSE 64–91; RESP 18–21; TEMP 36.1–36.8; O2SAT 89–94
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
[2025-01-06 01:59] LABS: MRSA (PCR) NOT DETECTED (NOT DETECTE)
[2025-01-06] MEDS: oxyCODONE HCL (*CRX) 5 MG TAB IR 10 MG PO ×4 (04:09→21:10)
[2025-01-06] MEDS: BENZONATATE 100 MG CAPSULE PO ×2 (04:11→21:10)
[2025-01-06 04:55] LABS: Hematocrit 47.6 % (37.0-47.0); Hemoglobin 16.0 g/dL (12.0-15.0); Immature Granulocyte Percent A 0.9 % (0-0.5); Lymphocytes Absolute Auto 0.56 K/mm3 (0.9-3.2); Mean Corpuscular HGB Conc 33.6 g/dl (32-36); Mean Corpuscular Hemoglobin 32.8 pg (26-34); Mean Corpuscular Volume 97.5 fl (80-100); Nucleated Red Blood Cells Absolute Auto 0.000 K/mm3 (0.0-0.012); Nucleated Red Blood Cells Perc 0.0 % (0.0-0.2); Platelet Count Result 200 k/mm3 (150-375); Red Blood Count 4.88 M/mm3 (4.2-5.4); White Blood Count 12.8 K/mm3 (4.5-10.0)
[2025-01-06 05:06] LABS: Alanine Aminotransferase 44 U/L (6-35); Albumin Level 4.6 g/dL (3.5-5.1); Alkaline Phosphatase 84 U/L (38-126); Anion Gap 10 mmol/L (4-12); Aspartate Amino Transferase 45 U/L (14-36); Bilirubin,Total 1.0 mg/dL (0.2-1.3); Blood Urea Nitrogen 12 mg/dL (7-17); Calcium 9.5 mg/dL (8.4-10.2); Carbon Dioxide 26 mmol/L (22-30); Chloride 101 mmol/L (98-107); Estimated CRCL calculation 111 ml/min; Estimated Glomerular Filt Rate > 60; Glucose 171 mg/dL (65-110); Magnesium 2.2 mg/dL (1.6-2.3); Potassium 4.1 mmol/L (3.4-5.0); Sodium 137 mmol/L (137-145); Total Protein 8.2 g/dL (6.3-8.2)
[2025-01-06 05:27] LABS: Procalcitonin 0.0 ng/mL
[2025-01-06 06:20] LABS: Alveolar/Arterial O2 Gradient 92.0 mmHg; Fractional Inspired Oxygen 28 %; HCO3 ABG 24.9 mEq/l (22.0-26.0); Oxygen Content ABG 20.6 %vol (16.0-22.0); Oxygen Saturation ABG 90.5 % (95.0-100.0); PCO2 ABG 41.3 mmHg (35.0-45.0); PO2 ABG 58.9 mmHg (80.0-100.0); PO2 FiO2 Ratio Arterial Blood 2.10 %
[2025-01-06 06:21] LABS: Liters per Minute 2.0 LPM; Modified Allen's Test Pass; Site Drawn RIGHT RADIAL
--- NOTE | 2025-01-06 08:04 | PM.IMPN ---
Progress Note: A&P Assessment and Plan (1) Acute respiratory failure with hypoxia: Code(s): J96.01 - Acute respiratory failure with hypoxia Status: Acute Assessment and Plan: -Dyspnea on exertion with decreased pulse ox with any activity. She reports 2 prior courses of doxycyline with PCP, first in October -Nasal cannula started 2 LPM with increased oxygen demand overnight bleed in with CPAP -Wheezing noted, CXR shows bibasilar infiltrates representing atelectasis vs pneumonia -Augmentin/doxycycline started (allergy to cephalosporins) but low [place] to broaden antibiotics -MRSA nares negative -Sputum culture, viral respiratory panel, pneumococcal antigen, Legionella antigen testing ordered -CRP 4.7, ESR and procalcitonin ordered with morning labs -IV magnesium 2 grams and IV Solu-Medrol given for COPD exacerbation with wheezing and dyspnea/hypoxia -ABG ordered with morning labs -Significant family history of blood clots, obtaining CTA PE with bendaryl and prednisone before procedure due to contrast allergy. --BNP was 103 01/05 --May need pulmonary consult if not improving --walking O2 prior to discharge (2) Acute UTI: Code(s): N39.0 - Urinary tract infection, site not specified Status: Acute Assessment and Plan: 01/15 Urinalysis with 3+ glucose, 3+ blood, positive nitrates, 2+ leukocyte esterase, 51-100 rbc's, greater than 100 wbc's and 4+ bacteria. Prior urine culture E coli in 2022 was pansensitive. WBC 9.5 on admission, now receiving steroids -Continue Augmentin -Follow urine culture (3) Community acquired pneumonia: Qualifiers: Laterality: unspecified laterality Qualified Code(s): J18.9 - Pneumonia, unspecified organism Code(s): J18.9 - Pneumonia, unspecified organism Status: Acute Assessment and Plan: -See above (4) Acute exacerbation of chronic obstructive pulmonary disease: Code(s): J44.1 - Chronic obstructive pulmonary disease with (acute) exacerbation Status: Acute Assessment and Plan: -See above (5) APRIL on CPAP: Code(s): G47.33 - Obstructive sleep apnea (adult) (pediatric); Z99.89 - Dependence on other enabling machines and devices Status: Chronic Assessment and Plan: -Permissive hypoxia to 88% overnight with oxygen bleed in to CPAP -Otherwise RN had oxygen up to 7 LPM (6) Personal history of nicotine dependence: Code(s): Z87.891 - Personal history of nicotine dependence Status: Chronic Assessment and Plan: -1.5 ppd for 42 years Time Spent With Patient Time: 57 mintues Subjective Date/time seen: 01/06/25 10:15 Interval history: CT pending, scheduled for 10pm . Short of breath with minimal activity Oxygen requirement is new. Will need a walking O2 for discharge Abdominal sugical sites look clean Review of Systems Review of Systems: All systems reviewed & are unremarkable except as noted in HPI and below Exam Narrative: APPEARANCE: No acute distress, nontoxic, resting in bed EYES: EOMI HEENT: Normocephalic, atraumatic RESPIRATORY: Crackles/coarse especially left lobe, rare wheezes throughout, worse at the bases CARDIOVASCULAR: Regular rate and rhythm without murmurs rubs or gallops. ABDOMINAL: Soft, nontender, minimally distended, no rebound or guarding. Surgical sites clean, no erythema (photo in patient's phone) MUSCULOSKELETAL: Moves all extremities. No cyanosis. Mild LE edema. NEURO: Awake and alert. Following commands, speech normal, no focal deficits SKIN:: Warm, dry. No rashes lesions or abrasions PSYCHIATRIC: Normal affect/mood Objective Data Vital Signs Vital Signs: Vital Signs - 24 hr 01/05/25 14:42 01/05/25 15:03 01/05/25 15:06 Temperature 97.9 F Pulse Rate 80 78 Respiratory Rate 20 Blood Pressure 143/65 H Pulse Oximetry 92 92 Oxygen Delivery Room Air Room Air Oxygen Flow Rate 01/05/25 16:00 01/05/25 17:29 01/05/25 17:32 Temperature Pulse Rate 78 75 78 Respiratory Rate 20 20 18 Blood Pressure 144/68 H 146/74 H Pulse Oximetry 96 98 Oxygen Delivery Oxygen Flow Rate 01/05/25 17:35 01/05/25 18:00 01/05/25 18:45 Temperature Pulse Rate 80 84 Respiratory Rate 20 19 Blood Pressure 101/83 Pulse Oximetry 92 86 L Oxygen Delivery Room Air Oxygen Flow Rate 01/05/25 19:53 01/05/25 20:00 01/05/25 20:22 Temperature 99.3 F Pulse Rate 81 82 81 Respiratory Rate 20 20 20 Blood Pressure 133/57 L 151/75 H 138/61 Pulse Oximetry 92 92 93 Oxygen Delivery Oxygen Flow Rate 01/05/25 22:46 01/05/25 22:47 01/05/25 22:55 Temperature Pulse Rate 83 83 81 Respiratory Rate 20 22 H Blood Pressure Pulse Oximetry 93 Oxygen Delivery Nasal Cannula Oxygen Flow Rate 2 01/05/25 23:38 01/06/25 00:00 01/06/25 01:30 Temperature 97.0 F L Pulse Rate 80 79 Respiratory Rate 20 Blood Pressure 110/48 L Pulse Oximetry 90 90 89 L Oxygen Delivery CPAP CPAP Oxygen Flow Rate 2.5 01/06/25 02:44 01/06/25 04:00 01/06/25 07:58 Temperature 98.3 F 98.2 F Pulse Rate 73 74 Respiratory Rate 20 18 Blood Pressure 132/65 145/80 H Pulse Oximetry 93 94 Oxygen Delivery CPAP Oxygen Flow Rate Intake/Output Intake/Output: Intake & Output 01/03/25 01/04/25 01/05/25 01/06/25 23:59 23:59 23:59 23:59 Intake Total 100 600 Balance 100 600 Meds/Results Medications: Active Medications Generic Name Dose Route Start Last Admin Trade Name Freq PRN Reason Stop Dose Admin Acetaminophen 1,000 mg 01/05/25 19:47 01/05/25 21:45 Acetaminophen 500 Mg Tablet PO 1,000 mg Q6H PRN Administration Mild Pain (1-3) or Fever Albuterol/Ipratropium 3 ml 01/06/25 08:00 Ipratropium 0.5 Mg/Albuterol Sulfate 2.5 Mg Ampul.Neb 3 Ml INHALATION Q4HRT KASH Amoxicillin/Clavulanate Potassium 1 tablet 01/05/25 21:00 01/05/25 21:45 Amoxicillin/Clavulanate K 875-125 Mg Tab PO 1 tablet Q12HR KASH Administration Aspirin 81 mg 01/06/25 09:00 Aspirin 81 Mg Enteric Tablet PO DAILY KASH Benzonatate 100 mg 01/05/25 21:48 01/06/25 04:11 Benzonatate 100 Mg Capsule PO 100 mg BID PRN Administration Cough Cyclobenzaprine HCl 5 mg 01/05/25 21:50 01/05/25 23:18 Cyclobenzaprine Hcl 5 Mg Tablet PO 5 mg HS KASH Administration Dextrose 12.5 gm 01/05/25 21:55 Dextrose 50% 25 Gm/50 Ml Syringe IV PUSH PRN PRN Hypoglycemia Protocol Diphenhydramine HCl 50 mg 01/06/25 20:00 Diphenhydramine Hcl Inj 50 Mg/Ml Vial IV PUSH 01/06/25 20:01 ONCE ONE Docusate Sodium 100 mg 01/05/25 22:40 01/05/25 23:17 Docusate Sodium 100 Mg Capsule PO 100 mg Q12HR KASH Administration Doxycycline Hyclate 100 mg 01/06/25 09:00 Doxycycline Hyclate 100 Mg Tablet PO Q12HR KASH Duloxetine HCl 60 mg 01/06/25 09:00 Duloxetine Hcl 60 Mg Capsule.Dr PO DAILY [facility] Empagliflozin 10 mg 01/06/25 09:00 Empagliflozin 10 Mg Tablet PO DAILY [facility] Enoxaparin Sodium 40 mg 01/06/25 09:00 Enoxaparin 40 Mg/0.4 Ml Syringe SUB-Q DAILY [facility] Famotidine 40 mg 01/06/25 09:00 Famotidine 20 Mg Tablet PO DAILY [facility] Fluticasone Propionate 1 spray 01/06/25 09:00 Fluticasone Propionate 0.05% Na Spr 16 Gm Btl (*Bkc) NASAL Q12HR [facility] Fluticasone/Umeclidinium/Vilanterol 1 puff 01/06/25 08:00 Fluticasone/Umeclidin/Vilanter 200-62.5-25 Mcg Ellipta INHALATION DAILYRT [facility] Glucagon 1 mg 01/05/25 21:55 Glucagon For Inj 1 Mg Vial IM PRN PRN Hypoglycemia Protocol Glucose 15 gm 01/05/25 21:55 Glucose Oral Gel 15 Gm Of Glucse In 37.5 Gm Tube PO PRN PRN Hypoglycemia Protocol Dextrose 1,000 mls @ 100 mls/hr 01/05/25 21:55 Dextrose 5% 1,000 Ml IVPB PRN PRN Hypoglycemia Protocol Insulin Aspart 4 - 8 units 01/06/25 08:00 Insulin Aspart (*Bkc) 100 Units/Ml SUB-Q TIDWM [facility] Protocol Loratadine 10 mg 01/06/25 09:00 Loratadine 10 Mg Tablet PO QAM [facility] Losartan Potassium 100 mg 01/06/25 09:00 Losartan Potassium 100 Mg Tablet PO DAILY [facility] Metoprolol Succinate 50 mg 01/06/25 09:00 Metoprolol Succinate Ext Rel 50 Mg Tabcr PO QAM [facility] Montelukast Sodium 10 mg 01/05/25 21:55 01/05/25 23:17 Montelukast Sodium 10 Mg Tablet PO 10 mg HS KASH Administration Oxycodone HCl 10 mg 01/05/25 21:48 01/06/25 04:09 Oxycodone Hcl (*Crx) 5 Mg Tab Ir PO 10 mg Q4H PRN Administration Pain Rated 7-10 Oxycodone HCl 5 mg 01/05/25 22:36 Oxycodone Hcl (*Crx) 5 Mg Tab Ir PO Q4H PRN Pain Rated 4-6 Polyethylene Glycol 17 gm 01/06/25 09:00 Polyethylene Glycol 3350 17 Gm Powd.Pack PO QAM [facility] Prednisone 40 mg/ Prednisone 50 mg 01/06/25 08:00 10 mg PO 01/06/25 20:01 Q6H [facility] Rosuvastatin Calcium 5 mg 01/06/25 09:00 Rosuvastatin 5 Mg Tablet PO DAILY [facility] Sitagliptin Phosphate 25 mg 01/06/25 09:00 Sitagliptin Phosphate 25 Mg Tablet PO QAM [facility] Vitamin B Complex 2 cap 01/06/25 09:00 Vitamin B Complex Capsule PO DAILY [facility] Radiology Results: ITS Impressions Chest X-Ray 01/05/25 15:25 Impression: 1: Bibasilar infiltrates may represent pneumonia and/or atelectasis. Labs Labs: Laboratory Results - last 24 hr 01/05/25 01/05/25 01/06/25 15:59 17:37 00:44 WBC 9.5 RBC 4.75 Hgb 15.5 H Hct 46.8 MCV 98.5 MCH 32.6 MCHC 33.1 RDW 13.8 Plt Count 190 MPV 11.1 H Immature Gran % (Auto) 0.5 Neut % (Auto) 74.9 H Lymph % (Auto) 13.9 L [place] % (Auto) 6.2 Eos % (Auto) 4.2 Baso % (Auto) 0.3 Lymph # (Auto) 1.32 [place] # (Auto) 0.6 Eos # (Auto) 0.4 H Baso # (Auto) 0.0 Abs Immat Gran (auto) 0.05 H Absolute Neuts (auto) 7.1 H Absolute Nucleated RBC 0.000 Nucleated RBC % 0.0 ESR Puncture Site ABG pH ABG pCO2 ABG pO2 ABG PO2/FiO2 Ratio ABG HCO3 ABG O2 Saturation ABG O2 Content ABG Base Excess A-a Gradient Oxyhemoglobin Total Hemoglobin O2 Delivery Device O2 Liters/Min FiO2 Sodium 137 Potassium 3.9 Chloride 101 Carbon Dioxide 26 Anion Gap 10 BUN 13 D Creatinine 0.50 L Estim Creat Clear Calc 132 Estimated GFR > 60 Glucose 99 POC Capillary Glucose Hemoglobin A1c 5.8 H Calcium 9.2 Magnesium 1.9 Total Bilirubin 0.8 AST 48 H ALT 39 H Alkaline Phosphatase 67 C-Reactive Protein 4.7 H NT-Pro-B Natriuret Pep 103 H Total Protein 8.0 Albumin 4.4 Procalcitonin Urine Color Yellow Urine Appearance Cloudy H Urine pH 5.5 Ur Specific [place] 1.023 Urine Protein Negative Urine Glucose (UA) 3+ H Urine Ketones Negative Ur Blood (Man) 3+ H Urine Nitrate Positive H Urine Bilirubin Negative Urine Urobilinogen 0.2 Leukocyte Esterase Rfl 2+ H Urine RBC 51-100 H Urine WBC >100 H Ur Squamous Epith Cells None seen Urine Bacteria 4+ H Urine Casts 0-2 Nasal MRSA (PCR) Not detected Influenza A (RT-PCR) Negative Influenza B (RT-PCR) Negative RSV (RT-PCR) Negative SARS-CoV-2 RNA (RT-PCR) Negative 01/06/25 01/06/25 01/06/25 04:43 05:53 07:25 WBC 12.8 H RBC 4.88 Hgb 16.0 H Hct 47.6 H MCV 97.5 MCH 32.8 MCHC 33.6 RDW 13.4 Plt Count 200 MPV 11.3 H Immature Gran % (Auto) 0.9 H Neut % (Auto) 91.5 H Lymph % (Auto) 4.4 L [place] % (Auto) 2.9 Eos % (Auto) 0.1 Baso % (Auto) 0.2 Lymph # (Auto) 0.56 L [place] # (Auto) 0.4 Eos # (Auto) 0.0 Baso # (Auto) 0.0 Abs Immat Gran (auto) 0.11 H Absolute Neuts (auto) 11.7 H Absolute Nucleated RBC 0.000 Nucleated RBC % 0.0 ESR 14 Puncture Site Right radial ABG pH 7.398 ABG pCO2 41.3 ABG pO2 58.9 L ABG PO2/FiO2 Ratio 2.10 ABG HCO3 24.9 ABG O2 Saturation 90.5 L ABG O2 Content 20.6 ABG Base Excess 0.0 A-a Gradient 92.0 Oxyhemoglobin 87.5 L* Total Hemoglobin 16.8 O2 Delivery Device Nasal cannula O2 Liters/Min 2.0 FiO2 28 Sodium 137 Potassium 4.1 Chloride 101 Carbon Dioxide 26 Anion Gap 10 BUN 12 Creatinine 0.54 L Estim Creat Clear Calc 111 Estimated GFR > 60 Glucose 171 H POC Capillary Glucose 158 H Hemoglobin A1c Calcium 9.5 Magnesium 2.2 Total Bilirubin 1.0 AST 45 H ALT 44 H Alkaline Phosphatase 84 C-Reactive Protein NT-Pro-B Natriuret Pep Total Protein 8.2 Albumin 4.6 Procalcitonin 0.0 Urine Color Urine Appearance Urine pH Ur Specific [place] Urine Protein Urine Glucose (UA) Urine Ketones Ur Blood (Man) Urine Nitrate Urine Bilirubin Urine Urobilinogen Leukocyte Esterase Rfl Urine RBC Urine WBC Ur Squamous Epith Cells Urine Bacteria Urine Casts Nasal MRSA (PCR) Influenza A (RT-PCR) Influenza B (RT-PCR) RSV (RT-PCR) SARS-CoV-2 RNA (RT-PCR) Quality VTE Prophylaxis VTE prophylaxis: pharmacologic ordered (Lovenox) Hospitalist [facility] Advance Care Plan I have confirmed that the patient's Advanced Care Plan is present, code status is documented, or surrogate decision maker is listed in patient medical record.: Yes Medication Reconciliation I have utilized all available resources to obtain, update and review the patients current medications (includes all prescriptions, OTC, herbals, cannabis, and nutritional supplements).: Yes
[2025-01-06] MEDS: ENOXAPARIN 40 MG/0.4 ML SYRINGE SUB-Q (08:44)
[2025-01-06] MEDS: predniSONE 40 MG, predniSONE 10 MG 50 MG PO ×3 (08:44→20:57)
[2025-01-06] MEDS: VITAMIN B COMPLEX CAPSULE 2 CAP PO (08:45)
[2025-01-06] MEDS: LORATADINE 10 MG TABLET PO (08:45)
[2025-01-06] MEDS: ROSUVASTATIN 5 MG TABLET PO (08:45)
[2025-01-06] MEDS: ASPIRIN 81 MG ENTERIC TABLET PO (08:45)
[2025-01-06] MEDS: DULoxetine HCL 60 MG CAPSULE.DR PO (08:45)
[2025-01-06] MEDS: DOCUSATE SODIUM 100 MG CAPSULE PO ×2 (08:45→20:06)
[2025-01-06] MEDS: FAMOTIDINE 20 MG TABLET 40 MG PO (08:46)
[2025-01-06] MEDS: DOXYCYCLINE HYCLATE 100 MG TABLET PO ×2 (08:46→20:06)
[2025-01-06] MEDS: EMPAGLIFLOZIN 10 MG TABLET PO (08:46)
[2025-01-06] MEDS: LOSARTAN POTASSIUM 100 MG TABLET PO (08:46)
[2025-01-06] MEDS: METOPROLOL SUCCINATE EXT REL 50 MG TABCR PO (08:46)
[2025-01-06] MEDS: FLUTICASONE PROPIONATE 0.05% NA SPR 16 GM BTL (*BKC) 1 SPRAY NASAL (08:54)
[2025-01-06] MEDS: IPRATROPIUM 0.5 MG/ALBUTEROL SULFATE 2.5 MG AMPUL.NEB 3 ML INHALATION ×2 (09:11→19:42)
[2025-01-06] MEDS: FLUTICASONE/UMECLIDIN/VILANTER 200-62.5-25 MCG ELLIPTA 1 PUFF INHALATION (09:11)
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
[2025-01-06 11:59] LABS: Alveolar/Arterial O2 Gradient 121.4 mmHg; Fractional Inspired Oxygen 32 %; HCO3 ABG 25.9 mEq/l (22.0-26.0); Oxygen Content ABG 20.7 %vol (16.0-22.0); Oxygen Saturation ABG 90.9 % (95.0-100.0); PCO2 ABG 41.0 mmHg (35.0-45.0); PO2 ABG 58.8 mmHg (80.0-100.0); PO2 FiO2 Ratio Arterial Blood 1.84 %
[2025-01-06 12:00] LABS: Modified Allen's Test Pass; Site Drawn LEFT RADIAL
[2025-01-06 12:01] LABS: Liters per Minute 3.0 LPM
[2025-01-06] MEDS: MONTELUKAST SODIUM 10 MG TABLET PO (20:07)
[2025-01-07] VITALS (27 sets, daily range): BP systolic 124–136; BP diastolic 60–71; PULSE 58–73; RESP 18–20; TEMP 36.3–36.4; O2SAT 90–97
[2025-01-07] MEDS: IPRATROPIUM 0.5 MG/ALBUTEROL SULFATE 2.5 MG AMPUL.NEB 3 ML INHALATION ×7 (00:08→21:29)
[2025-01-07] MEDS: oxyCODONE HCL (*CRX) 5 MG TAB IR 10 MG PO ×3 (02:16→20:53)
[2025-01-07] MEDS: BISACODYL 10 MG SUPPOSITORY RECTAL (04:44)
[2025-01-07 05:26] LABS: Hematocrit 45.7 % (37.0-47.0); Hemoglobin 15.3 g/dL (12.0-15.0); Immature Granulocyte Percent A 1.5 % (0-0.5); Lymphocytes Absolute Auto 1.39 K/mm3 (0.9-3.2); Mean Corpuscular HGB Conc 33.5 g/dl (32-36); Mean Corpuscular Hemoglobin 33.0 pg (26-34); Mean Corpuscular Volume 98.5 fl (80-100); Nucleated Red Blood Cells Absolute Auto 0.000 K/mm3 (0.0-0.012); Nucleated Red Blood Cells Perc 0.0 % (0.0-0.2); Platelet Count Result 235 k/mm3 (150-375); Red Blood Count 4.64 M/mm3 (4.2-5.4); White Blood Count 19.1 K/mm3 (4.5-10.0)
[2025-01-07 05:41] LABS: Alanine Aminotransferase 53 U/L (6-35); Albumin Level 4.4 g/dL (3.5-5.1); Alkaline Phosphatase 78 U/L (38-126); Anion Gap 10 mmol/L (4-12); Aspartate Amino Transferase 48 U/L (14-36); Bilirubin,Total 0.6 mg/dL (0.2-1.3); Blood Urea Nitrogen 18 mg/dL (7-17); Calcium 9.8 mg/dL (8.4-10.2); Carbon Dioxide 28 mmol/L (22-30); Chloride 97 mmol/L (98-107); Estimated CRCL calculation 109 ml/min; Estimated Glomerular Filt Rate > 60; Glucose 140 mg/dL (65-110); Magnesium 2.3 mg/dL (1.6-2.3); Potassium 4.0 mmol/L (3.4-5.0); Sodium 135 mmol/L (137-145); Total Protein 8.1 g/dL (6.3-8.2)
[2025-01-07] MEDS: FLUTICASONE/UMECLIDIN/VILANTER 200-62.5-25 MCG ELLIPTA 1 PUFF INHALATION (07:29)
[2025-01-07] MEDS: MAGNESIUM HYDROXIDE SUSP 30 ML UDC 40 ML PO (08:11)
[2025-01-07] MEDS: guaiFENesin 12 HR 600 MG TABCR 1200 MG PO ×2 (08:13→20:56)
[2025-01-07] MEDS: LORATADINE 10 MG TABLET PO (08:13)
[2025-01-07] MEDS: FAMOTIDINE 20 MG TABLET 40 MG PO (08:13)
[2025-01-07] MEDS: ASPIRIN 81 MG ENTERIC TABLET PO (08:13)
[2025-01-07] MEDS: VITAMIN B COMPLEX CAPSULE 2 CAP PO (08:13)
[2025-01-07] MEDS: DULoxetine HCL 60 MG CAPSULE.DR PO (08:13)
[2025-01-07] MEDS: ROSUVASTATIN 5 MG TABLET PO (08:13)
[2025-01-07] MEDS: METOPROLOL SUCCINATE EXT REL 50 MG TABCR PO (08:14)
[2025-01-07] MEDS: EMPAGLIFLOZIN 10 MG TABLET PO (08:14)
[2025-01-07] MEDS: LOSARTAN POTASSIUM 100 MG TABLET PO (08:14)
[2025-01-07] MEDS: DOXYCYCLINE HYCLATE 100 MG TABLET PO ×2 (08:14→20:55)
[2025-01-07] MEDS: DOCUSATE SODIUM 100 MG CAPSULE PO (08:14)
[2025-01-07] MEDS: ENOXAPARIN 40 MG/0.4 ML SYRINGE SUB-Q (08:15)
[2025-01-07] MEDS: FLUTICASONE PROPIONATE 0.05% NA SPR 16 GM BTL (*BKC) 1 SPRAY NASAL (08:15)
--- NOTE | 2025-01-07 09:57 | P.PNIM_ITS ---
Progress Note: A&P Assessment and Plan (1) Acute respiratory failure with hypoxia: Code(s): J96.01 - Acute respiratory failure with hypoxia Status: Acute Assessment and Plan: -Dyspnea on exertion with decreased pulse ox with any activity. She reports 2 prior courses of doxycyline with PCP, first in October -Nasal cannula started 2 LPM with increased oxygen demand overnight bleed in with CPAP -Wheezing noted, CXR shows bibasilar infiltrates representing atelectasis vs pneumonia -Augmentin/doxycycline started (allergy to cephalosporins) but low [place] to broaden antibiotics -MRSA nares negative -Sputum culture, viral respiratory panel, pneumococcal antigen, Legionella antigen testing ordered -CRP 4.7, ESR and procalcitonin ordered with morning labs -IV magnesium 2 grams and IV Solu-Medrol given for COPD exacerbation with wheezing and dyspnea/hypoxia -ABG ordered with morning labs -Significant family history of blood clots, obtaining CTA PE with bendaryl and prednisone before procedure due to contrast allergy. --BNP was 103 01/05 --May need pulmonary consult if not improving --walking O2 prior to discharge 01/07/2025 CT chest negative for PE. Plan is to continue current treatment, increase activity as tolerated. (2) Acute UTI: Code(s): N39.0 - Urinary tract infection, site not specified Status: Acute Assessment and Plan: 01/15 Urinalysis with 3+ glucose, 3+ blood, positive nitrates, 2+ leukocyte esterase, 51-100 rbc's, greater than 100 wbc's and 4+ bacteria. Prior urine culture E coli in 2022 was pansensitive. 01/07/2025 WBC count is slightly high today. WBC 9.5 on admission, now receiving steroids -Continue Augmentin -Follow urine culture (3) Community acquired pneumonia: Qualifiers: Laterality: unspecified laterality Qualified Code(s): J18.9 - Pneumonia, unspecified organism Code(s): J18.9 - Pneumonia, unspecified organism Status: Acute Assessment and Plan: -See above (4) Acute exacerbation of chronic obstructive pulmonary disease: Code(s): J44.1 - Chronic obstructive pulmonary disease with (acute) exacerbation Status: Acute Assessment and Plan: -See above (5) APRIL on CPAP: Code(s): G47.33 - Obstructive sleep apnea (adult) (pediatric); Z99.89 - Dependence on other enabling machines and devices Status: Chronic Assessment and Plan: -Permissive hypoxia to 88% overnight with oxygen bleed in to CPAP -Otherwise RN had oxygen up to 7 LPM (6) Personal history of nicotine dependence: Code(s): Z87.891 - Personal history of nicotine dependence Status: Chronic Assessment and Plan: -1.5 ppd for 42 years Will provide counselling before discharge Subjective Date/time seen: 01/07/25 09:57 Interval history: Patient was seen during the morning rounds today. Patient is feeling slightly better. Decreased shortness of breath. No chest pain. No nausea vomiting. Mood stable. Review of Systems Review of Systems: All systems reviewed & are unremarkable except as noted in HPI and below Exam Narrative: APPEARANCE: No acute distress, nontoxic, resting in bed EYES: EOMI HEENT: Normocephalic, atraumatic RESPIRATORY: Air entry is better, few rales at bases. CARDIOVASCULAR: Regular rate and rhythm without murmurs rubs or gallops. ABDOMINAL: Soft, nontender, minimally distended, no rebound or guarding. Surgical sites clean, no erythema (photo in patient's phone) MUSCULOSKELETAL: Moves all extremities. No cyanosis. Mild LE edema. NEURO: Awake and alert. Following commands, speech normal, no focal deficits SKIN:: Warm, dry. No rashes lesions or abrasions PSYCHIATRIC: Normal affect/mood Objective Data Vital Signs Vital Signs: Vital Signs - 24 hr 01/06/25 11:44 01/06/25 16:00 01/06/25 19:45 Temperature 36.7 C Pulse Rate 74 71 Respiratory Rate 18 18 Blood Pressure 142/72 H 121/73 Pulse Oximetry 94 93 91 Oxygen Delivery Nasal Cannula Oxygen Flow Rate 2 01/06/25 19:45 01/06/25 19:49 01/06/25 19:52 Temperature 36.4 C Pulse Rate 66 64 64 Respiratory Rate 20 20 20 Blood Pressure 121/60 Pulse Oximetry 91 Oxygen Delivery Oxygen Flow Rate 01/06/25 20:00 01/06/25 23:08 01/07/25 00:00 Temperature 36.4 C Pulse Rate 69 69 58 L Respiratory Rate 20 20 Blood Pressure 124/64 Pulse Oximetry 91 91 90 Oxygen Delivery CPAP CPAP Oxygen Flow Rate 2.5 01/07/25 00:11 01/07/25 00:18 01/07/25 03:10 Temperature Pulse Rate 58 L 60 65 Respiratory Rate 18 18 Blood Pressure Pulse Oximetry 91 Oxygen Delivery CPAP Oxygen Flow Rate 01/07/25 04:00 01/07/25 04:48 01/07/25 07:32 Temperature 36.4 C Pulse Rate 63 64 73 Respiratory Rate 20 18 18 Blood Pressure 134/65 Pulse Oximetry 94 Oxygen Delivery Oxygen Flow Rate 01/07/25 07:34 01/07/25 07:43 01/07/25 08:14 Temperature Pulse Rate 72 70 Respiratory Rate 19 Blood Pressure Pulse Oximetry 95 Oxygen Delivery Nasal Cannula Oxygen Flow Rate 2 Intake/Output Intake/Output: Intake & Output 01/04/25 01/05/25 01/06/25 01/07/25 23:59 23:59 23:59 23:59 Intake Total 100 960 240 Balance 100 960 240 Meds/Results Medications: Active Medications Generic Name Dose Route Start Last Admin Trade Name Freq PRN Reason Stop Dose Admin Acetaminophen 1,000 mg 01/05/25 19:47 01/05/25 21:45 Acetaminophen 500 Mg Tablet PO 1,000 mg Q6H PRN Administration Mild Pain (1-3) or Fever Albuterol/Ipratropium 3 ml 01/06/25 08:00 01/07/25 07:29 Ipratropium 0.5 Mg/Albuterol Sulfate 2.5 Mg Ampul.Neb 3 Ml INHALATION 3 ml Q4HRT KASH Administration Amoxicillin/Clavulanate Potassium 1 tablet 01/05/25 21:00 01/07/25 08:13 Amoxicillin/Clavulanate K 875-125 Mg Tab PO 1 tablet Q12HR KASH Administration Aspirin 81 mg 01/06/25 09:00 01/07/25 08:13 Aspirin 81 Mg Enteric Tablet PO 81 mg DAILY KASH Administration Benzonatate 100 mg 01/05/25 21:48 01/06/25 21:10 Benzonatate 100 Mg Capsule PO 100 mg BID PRN Administration Cough Cyclobenzaprine HCl 5 mg 01/05/25 21:50 01/06/25 20:07 Cyclobenzaprine Hcl 5 Mg Tablet PO Not Given HS KASH Dextrose 12.5 gm 01/05/25 21:55 Dextrose 50% 25 Gm/50 Ml Syringe IV PUSH PRN PRN Hypoglycemia Protocol Docusate Sodium 100 mg 01/05/25 22:40 01/07/25 08:14 Docusate Sodium 100 Mg Capsule PO 100 mg Q12HR KASH Administration Doxycycline Hyclate 100 mg 01/06/25 09:00 01/07/25 08:14 Doxycycline Hyclate 100 Mg Tablet PO 100 mg Q12HR KASH Administration Duloxetine HCl 60 mg 01/06/25 09:00 01/07/25 08:13 Duloxetine Hcl 60 Mg Capsule.Dr PO 60 mg DAILY KASH Administration Empagliflozin 10 mg 01/06/25 09:00 01/07/25 08:14 Empagliflozin 10 Mg Tablet PO 10 mg DAILY KASH Administration Enoxaparin Sodium 40 mg 01/06/25 09:00 01/07/25 08:15 Enoxaparin 40 Mg/0.4 Ml Syringe SUB-Q 40 mg DAILY KASH Administration Famotidine 40 mg 01/06/25 09:00 01/07/25 08:13 Famotidine 20 Mg Tablet PO 40 mg DAILY KASH Administration Fluticasone Propionate 1 spray 01/06/25 09:00 01/07/25 08:15 Fluticasone Propionate 0.05% Na Spr 16 Gm Btl (*Bkc) NASAL 1 spray Q12HR KASH Administration Fluticasone/Umeclidinium/Vilanterol 1 puff 01/06/25 08:00 01/07/25 07:29 Fluticasone/Umeclidin/Vilanter 200-62.5-25 Mcg Ellipta INHALATION 1 puff DAILYRT KASH Administration Glucagon 1 mg 01/05/25 21:55 Glucagon For Inj 1 Mg Vial IM PRN PRN Hypoglycemia Protocol Glucose 15 gm 01/05/25 21:55 Glucose Oral Gel 15 Gm Of Glucse In 37.5 Gm Tube PO PRN PRN Hypoglycemia Protocol Guaifenesin 1,200 mg 01/07/25 09:00 01/07/25 08:13 Guaifenesin 12 Hr 600 Mg Tabcr PO 1,200 mg Q12HR KASH Administration Dextrose 1,000 mls @ 100 mls/hr 01/05/25 21:55 Dextrose 5% 1,000 Ml IVPB PRN PRN Hypoglycemia Protocol Insulin Aspart 4 - 8 units 01/06/25 08:00 01/07/25 08:23 Insulin Aspart (*Bkc) 100 Units/Ml SUB-Q Not Given TIDWM KASH Protocol Loratadine 10 mg 01/06/25 09:00 01/07/25 08:13 Loratadine 10 Mg Tablet PO 10 mg QAM KASH Administration Losartan Potassium 100 mg 01/06/25 09:00 01/07/25 08:14 Losartan Potassium 100 Mg Tablet PO 100 mg DAILY KASH Administration Metoprolol Succinate 50 mg 01/06/25 09:00 01/07/25 08:14 Metoprolol Succinate Ext Rel 50 Mg Tabcr PO 50 mg QAM KASH Administration Montelukast Sodium 10 mg 01/05/25 21:55 01/06/25 20:07 Montelukast Sodium 10 Mg Tablet PO 10 mg HS KASH Administration Oxycodone HCl 10 mg 01/05/25 21:48 01/07/25 02:16 Oxycodone Hcl (*Crx) 5 Mg Tab Ir PO 10 mg Q4H PRN Administration Pain Rated 7-10 Oxycodone HCl 5 mg 01/05/25 22:36 Oxycodone Hcl (*Crx) 5 Mg Tab Ir PO Q4H PRN Pain Rated 4-6 Polyethylene Glycol 17 gm 01/06/25 09:00 01/07/25 08:13 Polyethylene Glycol 3350 17 Gm Powd.Pack PO 17 gm QAM KASH Administration Rosuvastatin Calcium 5 mg 01/06/25 09:00 01/07/25 08:13 Rosuvastatin 5 Mg Tablet PO 5 mg DAILY KASH Administration Sitagliptin Phosphate 25 mg 01/06/25 09:00 01/07/25 08:22 Sitagliptin Phosphate 25 Mg Tablet PO 25 mg QAM KASH Administration Vitamin B Complex 2 cap 01/06/25 09:00 01/07/25 08:13 Vitamin B Complex Capsule PO 2 cap DAILY KASH Administration Radiology Results: ITS Impressions Chest X-Ray 01/05/25 15:25 Impression: 1: Bibasilar infiltrates may represent pneumonia and/or atelectasis. Chest/Abdomen/Pelvis CTA 01/07/25 07:34 IMPRESSION: CHEST- 1. No PE. 2. Bibasilar aspiration and atelectasis. ABDOMEN/PELVIS- 1. Periumbilical fluid collection subcutaneous soft tissues; seroma and/or abscess. 2. Upper abdominal wall subcutaneous emphysema consistent with postoperative change. 3. No acute abnormality within abdomen and pelvis. Labs Labs: Laboratory Results - last 24 hr 01/06/25 01/06/25 01/06/25 11:30 11:42 16:32 WBC RBC Hgb Hct MCV MCH MCHC RDW Plt Count MPV Immature Gran % (Auto) Neut % (Auto) Lymph % (Auto) [place] % (Auto) Eos % (Auto) Baso % (Auto) Lymph # (Auto) [place] # (Auto) Eos # (Auto) Baso # (Auto) Abs Immat Gran (auto) Absolute Neuts (auto) Absolute Nucleated RBC Nucleated RBC % Puncture Site Left radial ABG pH 7.418 ABG pCO2 41.0 ABG pO2 58.8 L ABG PO2/FiO2 Ratio 1.84 ABG HCO3 25.9 ABG O2 Saturation 90.9 L ABG O2 Content 20.7 ABG Base Excess 1.3 A-a Gradient 121.4 Oxyhemoglobin 88.7 L Total Hemoglobin 16.6 O2 Delivery Device Nasal cannula O2 Liters/Min 3.0 FiO2 32 Sodium Potassium Chloride Carbon Dioxide Anion Gap BUN Creatinine Estim Creat Clear Calc Estimated GFR Glucose POC Capillary Glucose 210 H 204 H Calcium Magnesium Total Bilirubin AST ALT Alkaline Phosphatase Total Protein Albumin 01/06/25 01/07/25 01/07/25 19:55 04:31 08:20 WBC 19.1 H RBC 4.64 Hgb 15.3 H Hct 45.7 MCV 98.5 MCH 33.0 MCHC 33.5 RDW 13.4 Plt Count 235 MPV 11.4 H Immature Gran % (Auto) 1.5 H Neut % (Auto) 86.2 H Lymph % (Auto) 7.3 L [place] % (Auto) 4.6 Eos % (Auto) 0.2 Baso % (Auto) 0.2 Lymph # (Auto) 1.39 [place] # (Auto) 0.9 H Eos # (Auto) 0.0 Baso # (Auto) 0.0 Abs Immat Gran (auto) 0.28 H Absolute Neuts (auto) 16.4 H Absolute Nucleated RBC 0.000 Nucleated RBC % 0.0 Puncture Site ABG pH ABG pCO2 ABG pO2 ABG PO2/FiO2 Ratio ABG HCO3 ABG O2 Saturation ABG O2 Content ABG Base Excess A-a Gradient Oxyhemoglobin Total Hemoglobin O2 Delivery Device O2 Liters/Min FiO2 Sodium 135 L Potassium 4.0 Chloride 97 L Carbon Dioxide 28 Anion Gap 10 BUN 18 H Creatinine 0.55 L Estim Creat Clear Calc 109 Estimated GFR > 60 Glucose 140 H POC Capillary Glucose 191 H 159 H Calcium 9.8 Magnesium 2.3 Total Bilirubin 0.6 AST 48 H ALT 53 H Alkaline Phosphatase 78 Total Protein 8.1 Albumin 4.4 Quality VTE Prophylaxis VTE prophylaxis: pharmacologic ordered (Lovenox)
--- NOTE | 2025-01-07 12:39 | P.PNGS_ITS ---
Progress Note: A&P Assessment and Plan (1) Recurrent ventral hernia with incarceration: Code(s): K43.0 - Incisional hernia with obstruction, without gangrene Status: Acute Assessment and Plan: Pod 4 status post robotic assisted laparoscopic extended total extraperitoneal incarcerated recurrent incisional hernia repair with mesh and bilateral myofascial release. Patient presented to the ED on 01/05, 2 days after surgery, with complaints of shortness of breath and cough. * Continue abdominal binder and splinting abdomen with coughing. * Oxycodone and tylenol for pain * CTA obtained this morning and demonstrated a periumbilical fluid collection in the subcutaneous soft tissue likely demonstrating seroma or abscess. This is likely a postoperative seroma since it has only been 4 days since the surgery. (2) Acute respiratory failure with hypoxia: Code(s): J96.01 - Acute respiratory failure with hypoxia Status: Acute Assessment and Plan: * Patient is still on 2 L of oxygen via nasal cannula. Lungs sound better on auscultation today. Continue DuoNeb treatments. CPAP at night. * Possible pneumonia based on chest x-ray on 01/05. Currently on Augmentin and Doxycycline due to cephalosporin allergy. * No PE demonstrated on CTA today. (3) Acute UTI: Code(s): N39.0 - Urinary tract infection, site not specified Status: Acute Assessment and Plan: UTI noted on urinalysis. Currently being treated with Augmentin and Doxycycline. Previous UTI positive for pansensitive E coli. Urine culture still pending, but preliminary for legionella pneumophila. Alter antibiotic regimen accordingly. (4) Essential (primary) hypertension: Code(s): I10 - Essential (primary) hypertension Status: Acute Assessment and Plan: Continue home medications and manage per hospitalist. (5) DM type 2 (diabetes mellitus, type 2): Qualifiers: Diabetes mellitus [employer] insulin use: without fci use Diabetes mellitus complication status: without complication Qualified Code(s): E11.9 - Type 2 diabetes mellitus without complications Code(s): E11.9 - Type 2 diabetes mellitus without complications Status: Acute (6) Family history of thrombosis: Code(s): Z82.49 - Family history of ischemic heart disease and other diseases of the circulatory system Status: Acute Assessment and Plan: No PE demonstrated on CTA. No increased redness, warmth, or swelling to lower extremities. Patient does note that she has history of heart stents. Patient concerned that her heart could be causing some of her symptoms. I spoke with hospitalist about possible cardiac workup. (7) Cigarette nicotine dependence, uncomplicated: Code(s): F17.210 - Nicotine dependence, cigarettes, uncomplicated Status: Acute Plan Discussed patient's case and plan of care with Dr. Goldberg. Subjective Subjective Date/Time Seen: 01/07/25 12:39 Patient reports: still having pain, tolerating a regular diet (Diabetic diet) and no bowel movement Interval history: Patient up and walking around room upon visit today. States that she is still having periumbilical and epigastric pain. She states that when she is not co ughing her lungs hurt more than her abdomen. WBC up to 19.1 today. Afebrile. CTA was obtained yesterday and demonstrated periumbilical fluid collection in the subcutaneous soft tissues likely a seroma and or abscess. No PE, but bibasilar aspiration in atelectasis present. Exam Resp: Effort & Inspection: normal respiratory effort Other: No more crackles heard on auscultation. Still a little wheezy. GI: Inspection: non-distended GI Palp: Yes Soft to palpation and Yes Tenderness to palpation present (GI) Auscultation: normal bowel sounds Other: Tenderness to epigastric and periumbilical region. Incision sites clean and dry. Irritation and redness to left lower abdominal incision appears better than yesterday. Objective Data Vital Signs Vital Signs: Vital Signs - 24 hr 01/06/25 16:00 01/06/25 19:45 01/06/25 19:45 Temperature Pulse Rate 71 66 Respiratory Rate 18 20 Blood Pressure 121/73 Pulse Oximetry 93 91 Oxygen Delivery Nasal Cannula Oxygen Flow Rate 2 01/06/25 19:49 01/06/25 19:52 01/06/25 20:00 Temperature 97.6 F Pulse Rate 64 64 69 Respiratory Rate 20 20 20 Blood Pressure 121/60 Pulse Oximetry 91 91 Oxygen Delivery CPAP Oxygen Flow Rate 2.5 01/06/25 23:08 01/07/25 00:00 01/07/25 00:11 Temperature 97.6 F Pulse Rate 69 58 L 58 L Respiratory Rate 20 18 Blood Pressure 124/64 Pulse Oximetry 91 90 Oxygen Delivery CPAP Oxygen Flow Rate 01/07/25 00:18 01/07/25 03:10 01/07/25 04:00 Temperature 97.6 F Pulse Rate 60 65 63 Respiratory Rate 18 20 Blood Pressure 134/65 Pulse Oximetry 91 94 Oxygen Delivery CPAP Oxygen Flow Rate 01/07/25 04:48 01/07/25 07:32 01/07/25 07:34 Temperature Pulse Rate 64 73 Respiratory Rate 18 18 Blood Pressure Pulse Oximetry 95 Oxygen Delivery Nasal Cannula Oxygen Flow Rate 2 01/07/25 07:43 01/07/25 08:14 01/07/25 11:15 Temperature Pulse Rate 72 70 73 Respiratory Rate 19 19 Blood Pressure Pulse Oximetry Oxygen Delivery Oxygen Flow Rate 01/07/25 11:20 01/07/25 11:21 01/07/25 11:28 Temperature Pulse Rate 66 Respiratory Rate 19 Blood Pressure Pulse Oximetry 97 96 Oxygen Delivery Nasal Cannula Nasal Cannula Oxygen Flow Rate 2 1 01/07/25 11:32 01/07/25 11:38 Temperature 97.4 F L Pulse Rate 64 Respiratory Rate 20 Blood Pressure 136/61 Pulse Oximetry 95 94 Oxygen Delivery Room Air Oxygen Flow Rate Intake/Output Intake/Output: Intake & Output 01/04/25 01/05/25 01/06/25 01/07/25 23:59 23:59 23:59 23:59 Intake Total 100 960 360 Balance 100 960 360 Meds/Results Medications: Active Medications Generic Name Dose Route Start Last Admin Trade Name Freq PRN Reason Stop Dose Admin Acetaminophen 1,000 mg 01/05/25 19:47 01/05/25 21:45 Acetaminophen 500 Mg Tablet PO 1,000 mg Q6H PRN Administration Mild Pain (1-3) or Fever Albuterol/Ipratropium 3 ml 01/06/25 08:00 01/07/25 11:13 Ipratropium 0.5 Mg/Albuterol Sulfate 2.5 Mg Ampul.Neb 3 Ml INHALATION 3 ml Q4HRT KASH Administration Amoxicillin/Clavulanate Potassium 1 tablet 01/05/25 21:00 01/07/25 08:13 Amoxicillin/Clavulanate K 875-125 Mg Tab PO 1 tablet Q12HR KASH Administration Aspirin 81 mg 01/06/25 09:00 01/07/25 08:13 Aspirin 81 Mg Enteric Tablet PO 81 mg DAILY KASH Administration Benzonatate 100 mg 01/05/25 21:48 01/06/25 21:10 Benzonatate 100 Mg Capsule PO 100 mg BID PRN Administration Cough Cyclobenzaprine HCl 5 mg 01/05/25 21:50 01/06/25 20:07 Cyclobenzaprine Hcl 5 Mg Tablet PO Not Given HS KASH Dextrose 12.5 gm 01/05/25 21:55 Dextrose 50% 25 Gm/50 Ml Syringe IV PUSH PRN PRN Hypoglycemia Protocol Docusate Sodium 100 mg 01/05/25 22:40 01/07/25 08:14 Docusate Sodium 100 Mg Capsule PO 100 mg Q12HR KASH Administration Doxycycline Hyclate 100 mg 01/06/25 09:00 01/07/25 08:14 Doxycycline Hyclate 100 Mg Tablet PO 100 mg Q12HR KASH Administration Duloxetine HCl 60 mg 01/06/25 09:00 01/07/25 08:13 Duloxetine Hcl 60 Mg Capsule.Dr PO 60 mg DAILY KASH Administration Empagliflozin 10 mg 01/06/25 09:00 01/07/25 08:14 Empagliflozin 10 Mg Tablet PO 10 mg DAILY KASH Administration Enoxaparin Sodium 40 mg 01/06/25 09:00 01/07/25 08:15 Enoxaparin 40 Mg/0.4 Ml Syringe SUB-Q 40 mg DAILY KASH Administration Famotidine 40 mg 01/06/25 09:00 01/07/25 08:13 Famotidine 20 Mg Tablet PO 40 mg DAILY KASH Administration Fluticasone Propionate 1 spray 01/06/25 09:00 01/07/25 08:15 Fluticasone Propionate 0.05% Na Spr 16 Gm Btl (*Bkc) NASAL 1 spray Q12HR KASH Administration Fluticasone/Umeclidinium/Vilanterol 1 puff 01/06/25 08:00 01/07/25 07:29 Fluticasone/Umeclidin/Vilanter 200-62.5-25 Mcg Ellipta INHALATION 1 puff DAILYRT KASH Administration Glucagon 1 mg 01/05/25 21:55 Glucagon For Inj 1 Mg Vial IM PRN PRN Hypoglycemia Protocol Glucose 15 gm 01/05/25 21:55 Glucose Oral Gel 15 Gm Of Glucse In 37.5 Gm Tube PO PRN PRN Hypoglycemia Protocol Guaifenesin 1,200 mg 01/07/25 09:00 01/07/25 08:13 Guaifenesin 12 Hr 600 Mg Tabcr PO 1,200 mg Q12HR KASH Administration Dextrose 1,000 mls @ 100 mls/hr 01/05/25 21:55 Dextrose 5% 1,000 Ml IVPB PRN PRN Hypoglycemia Protocol Insulin Aspart 4 - 8 units 01/06/25 08:00 01/07/25 12:21 Insulin Aspart (*Bkc) 100 Units/Ml SUB-Q Not Given TIDWM KASH Protocol Loratadine 10 mg 01/06/25 09:00 01/07/25 08:13 Loratadine 10 Mg Tablet PO 10 mg QAM KASH Administration Losartan Potassium 100 mg 01/06/25 09:00 01/07/25 08:14 Losartan Potassium 100 Mg Tablet PO 100 mg DAILY KASH Administration Metoprolol Succinate 50 mg 01/06/25 09:00 01/07/25 08:14 Metoprolol Succinate Ext Rel 50 Mg Tabcr PO 50 mg QAM KASH Administration Montelukast Sodium 10 mg 01/05/25 21:55 01/06/25 20:07 Montelukast Sodium 10 Mg Tablet PO 10 mg HS KASH Administration Oxycodone HCl 10 mg 01/05/25 21:48 01/07/25 11:38 Oxycodone Hcl (*Crx) 5 Mg Tab Ir PO 10 mg Q4H PRN Administration Pain Rated 7-10 Oxycodone HCl 5 mg 01/05/25 22:36 Oxycodone Hcl (*Crx) 5 Mg Tab Ir PO Q4H PRN Pain Rated 4-6 Polyethylene Glycol 17 gm 01/06/25 09:00 01/07/25 08:13 Polyethylene Glycol 3350 17 Gm Powd.Pack PO 17 gm QAM KASH Administration Rosuvastatin Calcium 5 mg 01/06/25 09:00 01/07/25 08:13 Rosuvastatin 5 Mg Tablet PO 5 mg DAILY KASH Administration Sitagliptin Phosphate 25 mg 01/06/25 09:00 01/07/25 08:22 Sitagliptin Phosphate 25 Mg Tablet PO 25 mg QAM KASH Administration Vitamin B Complex 2 cap 01/06/25 09:00 01/07/25 08:13 Vitamin B Complex Capsule PO 2 cap DAILY KASH Administration Radiology Results: ITS Impressions Chest X-Ray 01/05/25 15:25 Impression: 1: Bibasilar infiltrates may represent pneumonia and/or atelectasis. Chest/Abdomen/Pelvis CTA 01/07/25 07:34 IMPRESSION: CHEST- 1. No PE. 2. Bibasilar aspiration and atelectasis. ABDOMEN/PELVIS- 1. Periumbilical fluid collection subcutaneous soft tissues; seroma and/or abscess. 2. Upper abdominal wall subcutaneous emphysema consistent with postoperative change. 3. No acute abnormality within abdomen and pelvis. Labs Labs: Laboratory Results - last 24 hr 01/06/25 01/06/25 01/07/25 16:32 19:55 04:31 WBC 19.1 H RBC 4.64 Hgb 15.3 H Hct 45.7 MCV 98.5 MCH 33.0 MCHC 33.5 RDW 13.4 Plt Count 235 MPV 11.4 H Immature Gran % (Auto) 1.5 H Neut % (Auto) 86.2 H Lymph % (Auto) 7.3 L [place] % (Auto) 4.6 Eos % (Auto) 0.2 Baso % (Auto) 0.2 Lymph # (Auto) 1.39 [place] # (Auto) 0.9 H Eos # (Auto) 0.0 Baso # (Auto) 0.0 Abs Immat Gran (auto) 0.28 H Absolute Neuts (auto) 16.4 H Absolute Nucleated RBC 0.000 Nucleated RBC % 0.0 Sodium 135 L Potassium 4.0 Chloride 97 L Carbon Dioxide 28 Anion Gap 10 BUN 18 H Creatinine 0.55 L Estim Creat Clear Calc 109 Estimated GFR > 60 Glucose 140 H POC Capillary Glucose 204 H 191 H Calcium 9.8 Magnesium 2.3 Total Bilirubin 0.6 AST 48 H ALT 53 H Alkaline Phosphatase 78 Total Protein 8.1 Albumin 4.4 01/07/25 01/07/25 08:20 12:19 WBC RBC Hgb Hct MCV MCH MCHC RDW Plt Count MPV Immature Gran % (Auto) Neut % (Auto) Lymph % (Auto) [place] % (Auto) Eos % (Auto) Baso % (Auto) Lymph # (Auto) [place] # (Auto) Eos # (Auto) Baso # (Auto) Abs Immat Gran (auto) Absolute Neuts (auto) Absolute Nucleated RBC Nucleated RBC % Sodium Potassium Chloride Carbon Dioxide Anion Gap BUN Creatinine Estim Creat Clear Calc Estimated GFR Glucose POC Capillary Glucose 159 H 165 H Calcium Magnesium Total Bilirubin AST ALT Alkaline Phosphatase Total Protein Albumin
--- NOTE | 2025-01-07 13:23 | ECG_ITS ---
Test Date: 2025-01-07 14:13:15 Measurements Intervals [place] Rate: 68 P: 1 LA: 181 QRS: 42 QRSD: 103 T: 26 QT: 406 QTc: 433 Interpretive Statements SINUS RHYTHM NONSPECIFIC T-WAVE ABNORMALITIES Compared to ECG 09/16/2024 09:17:06 No significant changes Electronically Signed On 01-07-2025 15:47:07 CDT by Kennedy Archer M.D.
[2025-01-07] MEDS: MAGNESIUM HYDROXIDE SUSP 30 ML UDC PO (13:44)
[2025-01-07] MEDS: BENZONATATE 100 MG CAPSULE PO (20:52)
[2025-01-07] MEDS: CYCLOBENZAPRINE HCL 5 MG TABLET PO (20:56)
[2025-01-07] MEDS: MONTELUKAST SODIUM 10 MG TABLET PO (20:56)
[2025-01-08] VITALS (16 sets, daily range): BP systolic 107–130; BP diastolic 49–62; PULSE 64–75; RESP 18–20; TEMP 36.4–36.9; O2SAT 92–96
[2025-01-08] MEDS: oxyCODONE HCL (*CRX) 5 MG TAB IR 10 MG PO ×2 (02:24→19:34)
[2025-01-08] MEDS: IPRATROPIUM 0.5 MG/ALBUTEROL SULFATE 2.5 MG AMPUL.NEB 3 ML INHALATION ×5 (04:04→20:12)
[2025-01-08 05:05] LABS: Hematocrit 44.4 % (37.0-47.0); Hemoglobin 14.8 g/dL (12.0-15.0); Immature Granulocyte Percent A 1.0 % (0-0.5); Lymphocytes Absolute Auto 2.59 K/mm3 (0.9-3.2); Mean Corpuscular HGB Conc 33.3 g/dl (32-36); Mean Corpuscular Hemoglobin 33.1 pg (26-34); Mean Corpuscular Volume 99.3 fl (80-100); Nucleated Red Blood Cells Absolute Auto 0.000 K/mm3 (0.0-0.012); Nucleated Red Blood Cells Perc 0.0 % (0.0-0.2); Platelet Count Result 227 k/mm3 (150-375); Red Blood Count 4.47 M/mm3 (4.2-5.4); White Blood Count 14.3 K/mm3 (4.5-10.0)
[2025-01-08 05:20] LABS: Alanine Aminotransferase 47 U/L (6-35); Albumin Level 3.9 g/dL (3.5-5.1); Alkaline Phosphatase 74 U/L (38-126); Anion Gap 6 mmol/L (4-12); Aspartate Amino Transferase 52 U/L (14-36); Bilirubin,Total 0.6 mg/dL (0.2-1.3); Blood Urea Nitrogen 22 mg/dL (7-17); Calcium 9.1 mg/dL (8.4-10.2); Carbon Dioxide 31 mmol/L (22-30); Chloride 99 mmol/L (98-107); Estimated CRCL calculation 95 ml/min; Estimated Glomerular Filt Rate > 60; Glucose 108 mg/dL (65-110); Magnesium 2.1 mg/dL (1.6-2.3); Potassium 4.4 mmol/L (3.4-5.0); Sodium 136 mmol/L (137-145); Total Protein 7.1 g/dL (6.3-8.2)
[2025-01-08] MEDS: FLUTICASONE/UMECLIDIN/VILANTER 200-62.5-25 MCG ELLIPTA 1 PUFF INHALATION (07:19)
--- NOTE | 2025-01-08 08:22 | P.PNGS_ITS ---
Progress Note: A&P Assessment and Plan (1) Recurrent ventral hernia with incarceration: Code(s): K43.0 - Incisional hernia with obstruction, without gangrene Status: Acute Assessment and Plan: doing well s/p repair, cont normal postop care, WBC decreased today, cont abx and f/u cx, encourage OOB/IS, narinder reg diet Subjective Subjective Date/Time Seen: 01/08/25 08:22 Interval history: feels ok, off O2, still c significant abd soreness romeo c coughing Review of Systems Review of Systems: All systems reviewed & are unremarkable except as noted in HPI and below Exam Const: General: cooperative, no acute distress, uncomfortable and obese Resp: Auscultation: diminished lung sounds Cardio: Rate: regular rate Rhythm: regular rhythm GI: Inspection: normal to inspection, non-distended and incision GI Palp: Yes abdominal tenderness and Yes Soft to palpation Objective Data Vital Signs Vital Signs: Vital Signs - 24 hr 01/07/25 11:15 01/07/25 11:20 01/07/25 11:21 Temperature Pulse Rate 73 Respiratory Rate 19 Blood Pressure Pulse Oximetry 97 96 Oxygen Delivery Nasal Cannula Nasal Cannula Oxygen Flow Rate 2 1 01/07/25 11:28 01/07/25 11:32 01/07/25 11:38 Temperature 36.3 C L Pulse Rate 66 64 Respiratory Rate 19 20 Blood Pressure 136/61 Pulse Oximetry 95 94 Oxygen Delivery Room Air Oxygen Flow Rate 01/07/25 13:50 01/07/25 16:25 01/07/25 16:37 Temperature 36.3 C L Pulse Rate 65 66 63 Respiratory Rate 18 19 18 Blood Pressure 133/62 Pulse Oximetry 95 Oxygen Delivery Oxygen Flow Rate 01/07/25 18:18 01/07/25 19:57 01/07/25 20:00 Temperature 36.3 C L 36.4 C Pulse Rate 66 63 Respiratory Rate 20 20 Blood Pressure 127/60 130/71 Pulse Oximetry 94 95 97 Oxygen Delivery Room Air Oxygen Flow Rate 01/07/25 20:46 01/07/25 20:59 01/07/25 21:53 Temperature Pulse Rate 63 66 63 Respiratory Rate 18 18 Blood Pressure Pulse Oximetry 95 Oxygen Delivery Room Air Oxygen Flow Rate 01/07/25 22:10 01/07/25 23:04 01/08/25 02:34 Temperature 36.4 C Pulse Rate 63 58 L Respiratory Rate 20 Blood Pressure 133/70 Pulse Oximetry 95 95 Oxygen Delivery CPAP CPAP Oxygen Flow Rate 01/08/25 03:25 01/08/25 04:04 01/08/25 04:13 Temperature 36.4 C Pulse Rate 64 66 64 Respiratory Rate 20 18 18 Blood Pressure 116/58 L Pulse Oximetry 93 Oxygen Delivery Oxygen Flow Rate 01/08/25 07:20 01/08/25 07:20 01/08/25 07:29 Temperature Pulse Rate 70 73 Respiratory Rate 18 18 Blood Pressure Pulse Oximetry 93 Oxygen Delivery Room Air Oxygen Flow Rate Intake/Output Intake/Output: Intake & Output 01/05/25 01/06/25 01/07/25 01/08/25 23:59 23:59 23:59 23:59 Intake Total 922 086 7886 540 Balance 415 308 1206 540 Meds/Results Medications: Active Medications Generic Name Dose Route Start Last Admin Trade Name Freq PRN Reason Stop Dose Admin Acetaminophen 1,000 mg 01/05/25 19:47 01/05/25 21:45 Acetaminophen 500 Mg Tablet PO 1,000 mg Q6H PRN Administration Mild Pain (1-3) or Fever Albuterol/Ipratropium 3 ml 01/06/25 08:00 01/08/25 07:19 Ipratropium 0.5 Mg/Albuterol Sulfate 2.5 Mg Ampul.Neb 3 Ml INHALATION 3 ml Q4HRT KASH Administration Amoxicillin/Clavulanate Potassium 1 tablet 01/05/25 21:00 01/07/25 20:56 Amoxicillin/Clavulanate K 875-125 Mg Tab PO 1 tablet Q12HR KSAH Administration Aspirin 81 mg 01/06/25 09:00 01/07/25 08:13 Aspirin 81 Mg Enteric Tablet PO 81 mg DAILY KASH Administration Benzonatate 100 mg 01/05/25 21:48 01/07/25 20:52 Benzonatate 100 Mg Capsule PO 100 mg BID PRN Administration Cough Cyclobenzaprine HCl 5 mg 01/05/25 21:50 01/07/25 20:56 Cyclobenzaprine Hcl 5 Mg Tablet PO 5 mg HS KASH Administration Dextrose 12.5 gm 01/05/25 21:55 Dextrose 50% 25 Gm/50 Ml Syringe IV PUSH PRN PRN Hypoglycemia Protocol Docusate Sodium 100 mg 01/05/25 22:40 01/07/25 20:57 Docusate Sodium 100 Mg Capsule PO Not Given Q12HR KASH Doxycycline Hyclate 100 mg 01/06/25 09:00 01/07/25 20:55 Doxycycline Hyclate 100 Mg Tablet PO 100 mg Q12HR KASH Administration Duloxetine HCl 60 mg 01/06/25 09:00 01/07/25 08:13 Duloxetine Hcl 60 Mg Capsule.Dr PO 60 mg DAILY KASH Administration Empagliflozin 10 mg 01/06/25 09:00 01/07/25 08:14 Empagliflozin 10 Mg Tablet PO 10 mg DAILY KASH Administration Enoxaparin Sodium 40 mg 01/06/25 09:00 01/07/25 08:15 Enoxaparin 40 Mg/0.4 Ml Syringe SUB-Q 40 mg DAILY KASH Administration Famotidine 40 mg 01/06/25 09:00 01/07/25 08:13 Famotidine 20 Mg Tablet PO 40 mg DAILY KASH Administration Fluticasone Propionate 1 spray 01/06/25 09:00 01/07/25 20:57 Fluticasone Propionate 0.05% Na Spr 16 Gm Btl (*Bkc) NASAL Not Given Q12HR KASH Fluticasone/Umeclidinium/Vilanterol 1 puff 01/06/25 08:00 01/08/25 07:19 Fluticasone/Umeclidin/Vilanter 200-62.5-25 Mcg Ellipta INHALATION 1 puff DAILYRT KASH Administration Glucagon 1 mg 01/05/25 21:55 Glucagon For Inj 1 Mg Vial IM PRN PRN Hypoglycemia Protocol Glucose 15 gm 01/05/25 21:55 Glucose Oral Gel 15 Gm Of Glucse In 37.5 Gm Tube PO PRN PRN Hypoglycemia Protocol Guaifenesin 1,200 mg 01/07/25 09:00 01/07/25 20:56 Guaifenesin 12 Hr 600 Mg Tabcr PO 1,200 mg Q12HR KASH Administration Dextrose 1,000 mls @ 100 mls/hr 01/05/25 21:55 Dextrose 5% 1,000 Ml IVPB PRN PRN Hypoglycemia Protocol Insulin Aspart 4 - 8 units 01/06/25 08:00 01/07/25 17:01 Insulin Aspart (*Bkc) 100 Units/Ml SUB-Q Not Given TIDWM KASH Protocol Loratadine 10 mg 01/06/25 09:00 01/07/25 08:13 Loratadine 10 Mg Tablet PO 10 mg QAM KASH Administration Losartan Potassium 100 mg 01/06/25 09:00 01/07/25 08:14 Losartan Potassium 100 Mg Tablet PO 100 mg DAILY KASH Administration Metoprolol Succinate 50 mg 01/06/25 09:00 01/07/25 08:14 Metoprolol Succinate Ext Rel 50 Mg Tabcr PO 50 mg QAM KASH Administration Montelukast Sodium 10 mg 01/05/25 21:55 01/07/25 20:56 Montelukast Sodium 10 Mg Tablet PO 10 mg HS KASH Administration Oxycodone HCl 10 mg 01/05/25 21:48 01/08/25 02:24 Oxycodone Hcl (*Crx) 5 Mg Tab Ir PO 10 mg Q4H PRN Administration Pain Rated 7-10 Oxycodone HCl 5 mg 01/05/25 22:36 Oxycodone Hcl (*Crx) 5 Mg Tab Ir PO Q4H PRN Pain Rated 4-6 Polyethylene Glycol 17 gm 01/06/25 09:00 01/07/25 08:13 Polyethylene Glycol 3350 17 Gm Powd.Pack PO 17 gm QAM KASH Administration Rosuvastatin Calcium 5 mg 01/06/25 09:00 01/07/25 08:13 Rosuvastatin 5 Mg Tablet PO 5 mg DAILY KASH Administration Sitagliptin Phosphate 25 mg 01/06/25 09:00 01/07/25 08:22 Sitagliptin Phosphate 25 Mg Tablet PO 25 mg QAM KASH Administration Vitamin B Complex 2 cap 01/06/25 09:00 01/07/25 08:13 Vitamin B Complex Capsule PO 2 cap DAILY KASH Administration Radiology Results: ITS Impressions Chest X-Ray 01/05/25 15:25 Impression: 1: Bibasilar infiltrates may represent pneumonia and/or atelectasis. Chest/Abdomen/Pelvis CTA 01/07/25 07:34 IMPRESSION: CHEST- 1. No PE. 2. Bibasilar aspiration and atelectasis. ABDOMEN/PELVIS- 1. Periumbilical fluid collection subcutaneous soft tissues; seroma and/or abscess. 2. Upper abdominal wall subcutaneous emphysema consistent with postoperative change. 3. No acute abnormality within abdomen and pelvis. Labs Labs: Laboratory Results - last 24 hr 01/06/25 01/07/2525 01:01 08:20 12:19 WBC RBC Hgb Hct MCV MCH MCHC RDW Plt Count MPV Immature Gran % (Auto) Neut % (Auto) Lymph % (Auto) [place] % (Auto) Eos % (Auto) Baso % (Auto) Lymph # (Auto) [place] # (Auto) Eos # (Auto) Baso # (Auto) Abs Immat Gran (auto) Absolute Neuts (auto) Absolute Nucleated RBC Nucleated RBC % Sodium Potassium Chloride Carbon Dioxide Anion Gap BUN Creatinine Estim Creat Clear Calc Estimated GFR Glucose POC Capillary Glucose 159 H 165 H Calcium Magnesium Total Bilirubin AST ALT Alkaline Phosphatase Total Protein Albumin Chlamy pneumoniae PCR Not detected Adenovirus (PCR) Not detected B. pertussis DNA (PCR) Not detected B.parapertussis DNA PCR Not detected Coronavirus OC43 (PCR) Not detected Coronavirus HKU1 (PCR) Not detected Coronavirus 229E (PCR) Not detected Coronavirus NL63 (PCR) Not detected Human Metapneumovir PCR Not detected Influenza A (H1) PCR Not detected Influ A (H1/09) PCR Not detected Influenza A (H3) PCR Not detected Influenza Type A (PCR) Not detected Influenza Type B (PCR) Not detected M. pneumoniae (PCR) Not detected Parainfluenza 1 (PCR) Not detected Parainfluenza 2 (PCR) Not detected Parainfluenza 3 (PCR) Not detected Parainfluenza 4 (PCR) Not detected RSV (PCR) Not detected Entero/Rhino (PCR) Not detected SARS-CoV-2 (PCR) Not detected 01/07/25 01/07/25 01/08/25 16:57 20:00 04:17 WBC 14.3 H RBC 4.47 Hgb 14.8 Hct 44.4 MCV 99.3 MCH 33.1 MCHC 33.3 RDW 13.6 Plt Count 227 MPV 10.9 H Immature Gran % (Auto) 1.0 H Neut % (Auto) 72.2 Lymph % (Auto) 18.1 L [place] % (Auto) 5.5 Eos % (Auto) 2.9 Baso % (Auto) 0.3 Lymph # (Auto) 2.59 [place] # (Auto) 0.8 H Eos # (Auto) 0.4 H Baso # (Auto) 0.1 Abs Immat Gran (auto) 0.14 H Absolute Neuts (auto) 10.3 H Absolute Nucleated RBC 0.000 Nucleated RBC % 0.0 Sodium 136 L Potassium 4.4 Chloride 99 Carbon Dioxide 31 H Anion Gap 6 BUN 22 H Creatinine 0.64 L Estim Creat Clear Calc 95 Estimated GFR > 60 Glucose 108 POC Capillary Glucose 104 165 H Calcium 9.1 Magnesium 2.1 Total Bilirubin 0.6 AST 52 H ALT 47 H Alkaline Phosphatase 74 Total Protein 7.1 Albumin 3.9 Chlamy pneumoniae PCR Adenovirus (PCR) B. pertussis DNA (PCR) B.parapertussis DNA PCR Coronavirus OC43 (PCR) Coronavirus HKU1 (PCR) Coronavirus 229E (PCR) Coronavirus NL63 (PCR) Human Metapneumovir PCR Influenza A (H1) PCR Influ A (H1/09) PCR Influenza A (H3) PCR Influenza Type A (PCR) Influenza Type B (PCR) M. pneumoniae (PCR) Parainfluenza 1 (PCR) Parainfluenza 2 (PCR) Parainfluenza 3 (PCR) Parainfluenza 4 (PCR) RSV (PCR) Entero/Rhino (PCR) SARS-CoV-2 (PCR)
[2025-01-08] MEDS: DOXYCYCLINE HYCLATE 100 MG TABLET PO ×2 (08:49→21:57)
[2025-01-08] MEDS: FAMOTIDINE 20 MG TABLET 40 MG PO (08:49)
[2025-01-08] MEDS: LOSARTAN POTASSIUM 100 MG TABLET PO (08:50)
[2025-01-08] MEDS: DULoxetine HCL 60 MG CAPSULE.DR PO (08:50)
[2025-01-08] MEDS: VITAMIN B COMPLEX CAPSULE 2 CAP PO (08:50)
[2025-01-08] MEDS: guaiFENesin 12 HR 600 MG TABCR 1200 MG PO ×2 (08:50→21:57)
[2025-01-08] MEDS: METOPROLOL SUCCINATE EXT REL 50 MG TABCR PO (08:50)
[2025-01-08] MEDS: ASPIRIN 81 MG ENTERIC TABLET PO (08:50)
[2025-01-08] MEDS: LORATADINE 10 MG TABLET PO (08:50)
[2025-01-08] MEDS: ROSUVASTATIN 5 MG TABLET PO (08:50)
[2025-01-08] MEDS: DOCUSATE SODIUM 100 MG CAPSULE PO ×2 (08:50→21:57)
[2025-01-08] MEDS: EMPAGLIFLOZIN 10 MG TABLET PO (08:50)
[2025-01-08] MEDS: FLUTICASONE PROPIONATE 0.05% NA SPR 16 GM BTL (*BKC) 1 SPRAY NASAL ×2 (08:53→22:00)
[2025-01-08] MEDS: oxyCODONE HCL (*CRX) 5 MG TAB IR PO ×2 (09:03→13:12)
--- NOTE | 2025-01-08 12:30 | PM.IMPN ---
Progress Note: A&P Assessment and Plan (1) Acute UTI: Code(s): N39.0 - Urinary tract infection, site not specified Status: Acute Assessment and Plan: 01/05/2025 Urinalysis with 3+ glucose, 3+ blood, positive nitrates, 2+ leukocyte esterase, 51-100 rbc's, greater than 100 wbc's and 4+ bacteria. Prior urine culture E coli in 2022 was pansensitive. 01/08/2025 GNR's, ID and sensitivities pending Continue Amoxiclav (started 01/05/2025) 01/08/2025 Ordered PT/OT (2) Community acquired pneumonia: Qualifiers: Laterality: unspecified laterality Qualified Code(s): J18.9 - Pneumonia, unspecified organism Code(s): J18.9 - Pneumonia, unspecified organism Status: Acute Assessment and Plan: Bilateral LL postop, possible aspiration Continue Amoxiclav and doxycycline (started 01/05/2025) (3) Acute exacerbation of chronic obstructive pulmonary disease: Code(s): J44.1 - Chronic obstructive pulmonary disease with (acute) exacerbation Status: Acute Assessment and Plan: Continue antibiotics, prn ipratropium 01/08/2025 Add prednisone 40 mg daily (4) Acute respiratory failure with hypoxia: Code(s): J96.01 - Acute respiratory failure with hypoxia Status: Acute Assessment and Plan: Resolved 01/07/2025 (5) Leukocytosis: Code(s): D72.829 - Elevated white blood cell count, unspecified Status: Acute Assessment and Plan: In part due to steroids received prior to CT 01/08/2025 improved to 14.3k (6) APRIL on CPAP: Code(s): G47.33 - Obstructive sleep apnea (adult) (pediatric); Z99.89 - Dependence on other enabling machines and devices Status: Chronic Assessment and Plan: Continue CPAP while sleeping (7) Personal history of nicotine dependence: Code(s): Z87.891 - Personal history of nicotine dependence Status: Chronic Assessment and Plan: 1.5 ppd for 42 years Currently abstaining (8) DM type 2 (diabetes mellitus, type 2): Qualifiers: Diabetes mellitus long term care social worker insulin use: without long term care social worker use Diabetes mellitus complication status: without complication Qualified Code(s): E11.9 - Type 2 diabetes mellitus without complications Code(s): E11.9 - Type 2 diabetes mellitus without complications Status: Acute Assessment and Plan: Continue SSI May need to add basal insulin while on steroids 01/08/2025 FBs 120 Subjective Date/time seen: 01/08/25 12:30 Interval history: Feels little better today. Still coughing. Still with severe abdominal pain with position change or cough. Unable to get out of bed without assistance. Walks with assistance to bathroom with some dyspnea. Chest feels sore. Not related to exertion. Worse with coughing. Appetite improving. No GI or complaints at this point. She did have blood in urine prior to hospitalization. Still feels very weak and tired. Review of Systems Review of Systems: All systems reviewed & are unremarkable except as noted in HPI and below Exam Narrative: HEENT: PERRL, sclerae nonicteric, pharyngeal mucosa pink and intact NECK: No JVD, adenopathy, or thyromegaly CHEST: Normal, coarse BS throughout with bilateral coarse LL crackles HEART: NL S1/S2, regular, 2/6 RUSB LADAN w/o radiation ABDOMEN: BS+, soft, incisional tenderness EXTREMITIES: 1+ pretibial pitting edema bilaterally NEUROLOGIC: CN intact and symmetric to inspection MUSCULOSKELETAL: Tone and strength symmetric PSYCH: Alert. Oriented to person, place, and time Objective Data Vital Signs Vital Signs: Vital Signs - 24 hr 01/07/25 13:50 01/07/25 16:25 01/07/25 16:37 Temperature 97.4 F L Pulse Rate 65 66 63 Respiratory Rate 18 19 18 Blood Pressure 133/62 Pulse Oximetry 95 Oxygen Delivery 01/07/25 18:18 01/07/25 19:57 01/07/25 20:00 Temperature 97.3 F L 97.6 F Pulse Rate 66 63 Respiratory Rate 20 20 Blood Pressure 127/60 130/71 Pulse Oximetry 94 95 97 Oxygen Delivery Room Air 01/07/25 20:46 01/07/25 20:59 01/07/25 21:53 Temperature Pulse Rate 63 66 63 Respiratory Rate 18 18 Blood Pressure Pulse Oximetry 95 Oxygen Delivery Room Air 01/07/25 22:10 01/07/25 23:04 01/08/25 02:34 Temperature 97.6 F Pulse Rate 63 58 L Respiratory Rate 20 Blood Pressure 133/70 Pulse Oximetry 95 95 Oxygen Delivery CPAP CPAP 01/08/25 03:25 01/08/25 04:04 01/08/25 04:13 Temperature 97.6 F Pulse Rate 64 66 64 Respiratory Rate 20 18 18 Blood Pressure 116/58 L Pulse Oximetry 93 Oxygen Delivery 01/08/25 07:20 01/08/25 07:20 01/08/25 07:29 Temperature Pulse Rate 70 73 Respiratory Rate 18 18 Blood Pressure Pulse Oximetry 93 Oxygen Delivery Room Air 01/08/25 08:50 01/08/25 11:03 01/08/25 11:12 Temperature Pulse Rate 73 69 66 Respiratory Rate 18 18 Blood Pressure Pulse Oximetry Oxygen Delivery Intake/Output Intake/Output: Intake & Output 01/05/25 01/06/25 01/07/25 01/08/25 23:59 23:59 23:59 23:59 Intake Total 434 601 7330 540 Balance 379 013 6569 540 Meds/Results Medications: Active Medications Generic Name Dose Route Start Last Admin Trade Name Freq PRN Reason Stop Dose Admin Acetaminophen 1,000 mg 01/05/25 19:47 01/05/25 21:45 Acetaminophen 500 Mg Tablet PO 1,000 mg Q6H PRN Administration Mild Pain (1-3) or Fever Albuterol/Ipratropium 3 ml 01/06/25 08:00 01/08/25 11:02 Ipratropium 0.5 Mg/Albuterol Sulfate 2.5 Mg Ampul.Neb 3 Ml INHALATION 3 ml Q4HRT KASH Administration Amoxicillin/Clavulanate Potassium 1 tablet 01/05/25 21:00 01/08/25 08:49 Amoxicillin/Clavulanate K 875-125 Mg Tab PO 1 tablet Q12HR KASH Administration Aspirin 81 mg 01/06/25 09:00 01/08/25 08:50 Aspirin 81 Mg Enteric Tablet PO 81 mg DAILY KASH Administration Benzonatate 100 mg 01/05/25 21:48 01/07/25 20:52 Benzonatate 100 Mg Capsule PO 100 mg BID PRN Administration Cough Cyclobenzaprine HCl 5 mg 01/05/25 21:50 01/07/25 20:56 Cyclobenzaprine Hcl 5 Mg Tablet PO 5 mg HS KASH Administration Dextrose 12.5 gm 01/05/25 21:55 Dextrose 50% 25 Gm/50 Ml Syringe IV PUSH PRN PRN Hypoglycemia Protocol Docusate Sodium 100 mg 01/05/25 22:40 01/08/25 08:50 Docusate Sodium 100 Mg Capsule PO 100 mg Q12HR KASH Administration Doxycycline Hyclate 100 mg 01/06/25 09:00 01/08/25 08:49 Doxycycline Hyclate 100 Mg Tablet PO 100 mg Q12HR KASH Administration Duloxetine HCl 60 mg 01/06/25 09:00 01/08/25 08:50 Duloxetine Hcl 60 Mg Capsule.Dr PO 60 mg DAILY KASH Administration Empagliflozin 10 mg 01/06/25 09:00 01/08/25 08:50 Empagliflozin 10 Mg Tablet PO 10 mg DAILY KASH Administration Enoxaparin Sodium 40 mg 01/06/25 09:00 01/08/25 08:53 Enoxaparin 40 Mg/0.4 Ml Syringe SUB-Q Not Given DAILY KASH Famotidine 40 mg 01/06/25 09:00 01/08/25 08:49 Famotidine 20 Mg Tablet PO 40 mg DAILY KASH Administration Fluticasone Propionate 1 spray 01/06/25 09:00 01/08/25 08:53 Fluticasone Propionate 0.05% Na Spr 16 Gm Btl (*Bkc) NASAL 1 spray Q12HR KASH Administration Fluticasone/Umeclidinium/Vilanterol 1 puff 01/06/25 08:00 01/08/25 07:19 Fluticasone/Umeclidin/Vilanter 200-62.5-25 Mcg Ellipta INHALATION 1 puff DAILYRT KASH Administration Glucagon 1 mg 01/05/25 21:55 Glucagon For Inj 1 Mg Vial IM PRN PRN Hypoglycemia Protocol Glucose 15 gm 01/05/25 21:55 Glucose Oral Gel 15 Gm Of Glucse In 37.5 Gm Tube PO PRN PRN Hypoglycemia Protocol Guaifenesin 1,200 mg 01/07/25 09:00 01/08/25 08:50 Guaifenesin 12 Hr 600 Mg Tabcr PO 1,200 mg Q12HR KASH Administration Dextrose 1,000 mls @ 100 mls/hr 01/05/25 21:55 Dextrose 5% 1,000 Ml IVPB PRN PRN Hypoglycemia Protocol Insulin Aspart 4 - 8 units 01/06/25 08:00 01/08/25 12:05 Insulin Aspart (*Bkc) 100 Units/Ml SUB-Q Not Given TIDWM KASH Protocol Loratadine 10 mg 01/06/25 09:00 01/08/25 08:50 Loratadine 10 Mg Tablet PO 10 mg QAM KASH Administration Losartan Potassium 100 mg 01/06/25 09:00 01/08/25 08:50 Losartan Potassium 100 Mg Tablet PO 100 mg DAILY KASH Administration Metoprolol Succinate 50 mg 01/06/25 09:00 01/08/25 08:50 Metoprolol Succinate Ext Rel 50 Mg Tabcr PO 50 mg QAM KASH Administration Montelukast Sodium 10 mg 01/05/25 21:55 01/07/25 20:56 Montelukast Sodium 10 Mg Tablet PO 10 mg HS KASH Administration Oxycodone HCl 10 mg 01/05/25 21:48 01/08/25 02:24 Oxycodone Hcl (*Crx) 5 Mg Tab Ir PO 10 mg Q4H PRN Administration Pain Rated 7-10 Oxycodone HCl 5 mg 01/05/25 22:36 01/08/25 09:03 Oxycodone Hcl (*Crx) 5 Mg Tab Ir PO 5 mg Q4H PRN Administration Pain Rated 4-6 Polyethylene Glycol 17 gm 01/06/25 09:00 01/08/25 08:49 Polyethylene Glycol 3350 17 Gm Powd.Pack PO 17 gm QAM [facility] Administration Rosuvastatin Calcium 5 mg 01/06/25 09:00 01/08/25 08:50 Rosuvastatin 5 Mg Tablet PO 5 mg DAILY KASH Administration Sitagliptin Phosphate 25 mg 01/06/25 09:00 01/08/25 08:50 Sitagliptin Phosphate 25 Mg Tablet PO 25 mg QAM [facility] Administration Vitamin B Complex 2 cap 01/06/25 09:00 01/08/25 08:50 Vitamin B Complex Capsule PO 2 cap DAILY KASH Administration Radiology Results: ITS Impressions Chest X-Ray 01/05/25 15:25 Impression: 1: Bibasilar infiltrates may represent pneumonia and/or atelectasis. Chest/Abdomen/Pelvis CTA 01/07/25 07:34 IMPRESSION: CHEST- 1. No PE. 2. Bibasilar aspiration and atelectasis. ABDOMEN/PELVIS- 1. Periumbilical fluid collection subcutaneous soft tissues; seroma and/or abscess. 2. Upper abdominal wall subcutaneous emphysema consistent with postoperative change. 3. No acute abnormality within abdomen and pelvis. Labs Labs: Laboratory Results - last 24 hr 01/06/25 01/07/25 01/07/25 01:01 16:57 20:00 WBC RBC Hgb Hct MCV MCH MCHC RDW Plt Count MPV Immature Gran % (Auto) Neut % (Auto) Lymph % (Auto) [place] % (Auto) Eos % (Auto) Baso % (Auto) Lymph # (Auto) [place] # (Auto) Eos # (Auto) Baso # (Auto) Abs Immat Gran (auto) Absolute Neuts (auto) Absolute Nucleated RBC Nucleated RBC % Sodium Potassium Chloride Carbon Dioxide Anion Gap BUN Creatinine Estim Creat Clear Calc Estimated GFR Glucose POC Capillary Glucose 104 165 H Calcium Magnesium Total Bilirubin AST ALT Alkaline Phosphatase Total Protein Albumin Chlamy pneumoniae PCR Not detected Adenovirus (PCR) Not detected B. pertussis DNA (PCR) Not detected B.parapertussis DNA PCR Not detected Coronavirus OC43 (PCR) Not detected Coronavirus HKU1 (PCR) Not detected Coronavirus 229E (PCR) Not detected Coronavirus NL63 (PCR) Not detected Human Metapneumovir PCR Not detected Influenza A (H1) PCR Not detected Influ A (H1/09) PCR Not detected Influenza A (H3) PCR Not detected Influenza Type A (PCR) Not detected Influenza Type B (PCR) Not detected M. pneumoniae (PCR) Not detected Parainfluenza 1 (PCR) Not detected Parainfluenza 2 (PCR) Not detected Parainfluenza 3 (PCR) Not detected Parainfluenza 4 (PCR) Not detected RSV (PCR) Not detected Entero/Rhino (PCR) Not detected SARS-CoV-2 (PCR) Not detected 01/08/25 01/08/25 01/08/25 04:17 08:24 11:39 WBC 14.3 H RBC 4.47 Hgb 14.8 Hct 44.4 MCV 99.3 MCH 33.1 MCHC 33.3 RDW 13.6 Plt Count 227 MPV 10.9 H Immature Gran % (Auto) 1.0 H Neut % (Auto) 72.2 Lymph % (Auto) 18.1 L [place] % (Auto) 5.5 Eos % (Auto) 2.9 Baso % (Auto) 0.3 Lymph # (Auto) 2.59 [place] # (Auto) 0.8 H Eos # (Auto) 0.4 H Baso # (Auto) 0.1 Abs Immat Gran (auto) 0.14 H Absolute Neuts (auto) 10.3 H Absolute Nucleated RBC 0.000 Nucleated RBC % 0.0 Sodium 136 L Potassium 4.4 Chloride 99 Carbon Dioxide 31 H Anion Gap 6 BUN 22 H Creatinine 0.64 L Estim Creat Clear Calc 95 Estimated GFR > 60 Glucose 108 POC Capillary Glucose 120 H 116 H Calcium 9.1 Magnesium 2.1 Total Bilirubin 0.6 AST 52 H ALT 47 H Alkaline Phosphatase 74 Total Protein 7.1 Albumin 3.9 Chlamy pneumoniae PCR Adenovirus (PCR) B. pertussis DNA (PCR) B.parapertussis DNA PCR Coronavirus OC43 (PCR) Coronavirus HKU1 (PCR) Coronavirus 229E (PCR) Coronavirus NL63 (PCR) Human Metapneumovir PCR Influenza A (H1) PCR Influ A (H1/09) PCR Influenza A (H3) PCR Influenza Type A (PCR) Influenza Type B (PCR) M. pneumoniae (PCR) Parainfluenza 1 (PCR) Parainfluenza 2 (PCR) Parainfluenza 3 (PCR) Parainfluenza 4 (PCR) RSV (PCR) Entero/Rhino (PCR) SARS-CoV-2 (PCR)
[2025-01-08] MEDS: BENZONATATE 100 MG CAPSULE PO (19:34)
[2025-01-08] MEDS: CYCLOBENZAPRINE HCL 5 MG TABLET PO (21:57)
[2025-01-08] MEDS: MONTELUKAST SODIUM 10 MG TABLET PO (21:57)
[2025-01-09] VITALS (21 sets, daily range): BP systolic 105–140; BP diastolic 53–80; PULSE 60–103; RESP 16–20; TEMP 36.1–37.3; O2SAT 90–97
[2025-01-09] MEDS: IPRATROPIUM 0.5 MG/ALBUTEROL SULFATE 2.5 MG AMPUL.NEB 3 ML INHALATION ×6 (02:50→23:34)
--- NOTE | 2025-01-09 02:52 | PCRCNOTE ---
Patient did not want to be awakened multiple times, so her overnight treatment was administered at 0200. Tx to resume at 0800 q4.
[2025-01-09 05:37] LABS: Alanine Aminotransferase 43 U/L (6-35); Albumin Level 3.7 g/dL (3.5-5.1); Alkaline Phosphatase 80 U/L (38-126); Anion Gap 6 mmol/L (4-12); Aspartate Amino Transferase 39 U/L (14-36); Bilirubin,Total 0.7 mg/dL (0.2-1.3); Blood Urea Nitrogen 19 mg/dL (7-17); Calcium 9.0 mg/dL (8.4-10.2); Carbon Dioxide 31 mmol/L (22-30); Chloride 99 mmol/L (98-107); Estimated CRCL calculation 99 ml/min; Estimated Glomerular Filt Rate > 60; Glucose 105 mg/dL (65-110); Magnesium 2.1 mg/dL (1.6-2.3); Potassium 4.3 mmol/L (3.4-5.0); Sodium 136 mmol/L (137-145); Total Protein 6.9 g/dL (6.3-8.2)
[2025-01-09 05:39] LABS: Hematocrit 45.4 % (37.0-47.0); Hemoglobin 14.9 g/dL (12.0-15.0); Immature Granulocyte Percent A 1.3 % (0-0.5); Lymphocytes Absolute Auto 1.92 K/mm3 (0.9-3.2); Mean Corpuscular HGB Conc 32.8 g/dl (32-36); Mean Corpuscular Hemoglobin 32.5 pg (26-34); Mean Corpuscular Volume 99.1 fl (80-100); Nucleated Red Blood Cells Absolute Auto 0.000 K/mm3 (0.0-0.012); Nucleated Red Blood Cells Perc 0.0 % (0.0-0.2); Platelet Count Result 232 k/mm3 (150-375); Red Blood Count 4.58 M/mm3 (4.2-5.4); White Blood Count 9.7 K/mm3 (4.5-10.0)
[2025-01-09] MEDS: oxyCODONE HCL (*CRX) 5 MG TAB IR 10 MG PO (05:42)
[2025-01-09] MEDS: FLUTICASONE/UMECLIDIN/VILANTER 200-62.5-25 MCG ELLIPTA 1 PUFF INHALATION (08:46)
[2025-01-09] MEDS: DULoxetine HCL 60 MG CAPSULE.DR PO (10:38)
[2025-01-09] MEDS: DOXYCYCLINE HYCLATE 100 MG TABLET PO ×2 (10:38→21:24)
[2025-01-09] MEDS: FAMOTIDINE 20 MG TABLET 40 MG PO (10:38)
[2025-01-09] MEDS: DOCUSATE SODIUM 100 MG CAPSULE PO ×2 (10:39→21:24)
[2025-01-09] MEDS: LOSARTAN POTASSIUM 100 MG TABLET PO (10:39)
[2025-01-09] MEDS: ROSUVASTATIN 5 MG TABLET PO (10:39)
[2025-01-09] MEDS: VITAMIN B COMPLEX CAPSULE 2 CAP PO (10:39)
[2025-01-09] MEDS: guaiFENesin 12 HR 600 MG TABCR 1200 MG PO ×2 (10:39→21:24)
[2025-01-09] MEDS: METOPROLOL SUCCINATE EXT REL 50 MG TABCR PO (10:39)
[2025-01-09] MEDS: EMPAGLIFLOZIN 10 MG TABLET PO (10:40)
[2025-01-09] MEDS: LORATADINE 10 MG TABLET PO (10:40)
[2025-01-09] MEDS: ASPIRIN 81 MG ENTERIC TABLET PO (10:40)
[2025-01-09] MEDS: ENOXAPARIN 40 MG/0.4 ML SYRINGE SUB-Q (10:40)
[2025-01-09] MEDS: FLUTICASONE PROPIONATE 0.05% NA SPR 16 GM BTL (*BKC) 1 SPRAY NASAL ×2 (10:43→21:24)
--- NOTE | 2025-01-09 11:49 | PM.PNGS ---
Progress Note: A&P Assessment and Plan (1) Recurrent ventral hernia with incarceration: Code(s): K43.0 - Incisional hernia with obstruction, without gangrene Status: Acute Assessment and Plan: doing well, continue routine postoperative care, tolerating diet, awaiting Pulmonary consult for chronic cough Subjective Subjective Date/Time Seen: 01/09/25 11:49 Interval history: feels much better today, still with soreness mainly with coughing Review of Systems Review of Systems: All systems reviewed & are unremarkable except as noted in HPI and below Exam Const: General: cooperative, comfortable and no acute distress Resp: Auscultation: diminished lung sounds Cardio: Rate: regular rate Rhythm: regular rhythm GI: Inspection: normal to inspection, distended and incision GI Palp: Yes abdominal tenderness and Yes Soft to palpation Other: incisions healing well, no signs or symptoms of recurrence Objective Data Vital Signs Vital Signs: Vital Signs - 24 hr 01/08/25 13:11 01/08/25 16:05 01/08/25 16:10 Temperature 36.6 C Pulse Rate 71 72 68 Respiratory Rate 18 18 18 Blood Pressure 130/59 L Pulse Oximetry 96 Oxygen Delivery 01/08/25 18:03 01/08/25 20:00 01/08/25 20:00 Temperature 36.9 C 36.9 C Pulse Rate 75 68 Respiratory Rate 18 18 Blood Pressure 107/49 L 122/62 Pulse Oximetry 92 92 Oxygen Delivery Room Air 01/08/25 20:12 01/08/25 20:12 01/08/25 20:20 Temperature Pulse Rate 69 69 66 Respiratory Rate 18 18 Blood Pressure Pulse Oximetry 93 Oxygen Delivery Room Air 01/08/25 22:24 01/09/25 00:00 01/09/25 02:50 Temperature 37.3 C Pulse Rate 68 103 H 62 Respiratory Rate 18 18 Blood Pressure 122/80 Pulse Oximetry 94 91 Oxygen Delivery CPAP 01/09/25 02:52 01/09/25 02:56 01/09/25 04:00 Temperature 36.7 C Pulse Rate 62 63 63 Respiratory Rate 18 18 Blood Pressure 109/53 L Pulse Oximetry 96 93 Oxygen Delivery CPAP 01/09/25 06:39 01/09/25 08:00 01/09/25 08:20 Temperature 36.6 C 36.2 C L Pulse Rate 60 64 Respiratory Rate 18 18 Blood Pressure 121/62 140/71 Pulse Oximetry 93 91 Oxygen Delivery Room Air 01/09/25 08:47 01/09/25 08:47 01/09/25 09:00 Temperature Pulse Rate 66 Respiratory Rate 18 18 Blood Pressure Pulse Oximetry 90 Oxygen Delivery Room Air Intake/Output Intake/Output: Intake & Output 01/06/25 01/07/25 01/08/25 01/09/25 23:59 23:59 23:59 23:59 Intake Total 960 1320 1960 120 Balance 960 1320 1960 120 Meds/Results Medications: Active Medications Generic Name Dose Route Start Last Admin Trade Name Freq PRN Reason Stop Dose Admin Acetaminophen 1,000 mg 01/05/25 19:47 01/05/25 21:45 Acetaminophen 500 Mg Tablet PO 1,000 mg Q6H PRN Administration Mild Pain (1-3) or Fever Albuterol/Ipratropium 3 ml 01/06/25 08:00 01/09/25 08:46 Ipratropium 0.5 Mg/Albuterol Sulfate 2.5 Mg Ampul.Neb 3 Ml INHALATION 3 ml Q4HRT KASH Administration Amoxicillin/Clavulanate Potassium 1 tablet 01/05/25 21:00 01/09/25 10:39 Amoxicillin/Clavulanate K 875-125 Mg Tab PO 1 tablet Q12HR KASH Administration Aspirin 81 mg 01/06/25 09:00 01/09/25 10:40 Aspirin 81 Mg Enteric Tablet PO 81 mg DAILY KASH Administration Benzonatate 100 mg 01/05/25 21:48 01/08/25 19:34 Benzonatate 100 Mg Capsule PO 100 mg BID PRN Administration Cough Cyclobenzaprine HCl 5 mg 01/05/25 21:50 01/08/25 21:57 Cyclobenzaprine Hcl 5 Mg Tablet PO 5 mg HS KASH Administration Dextrose 12.5 gm 01/05/25 21:55 Dextrose 50% 25 Gm/50 Ml Syringe IV PUSH PRN PRN Hypoglycemia Protocol Docusate Sodium 100 mg 01/05/25 22:40 01/09/25 10:39 Docusate Sodium 100 Mg Capsule PO 100 mg Q12HR KASH Administration Doxycycline Hyclate 100 mg 01/06/25 09:00 01/09/25 10:38 Doxycycline Hyclate 100 Mg Tablet PO 100 mg Q12HR KASH Administration Duloxetine HCl 60 mg 01/06/25 09:00 01/09/25 10:38 Duloxetine Hcl 60 Mg Capsule.Dr PO 60 mg DAILY KASH Administration Empagliflozin 10 mg 01/06/25 09:00 01/09/25 10:40 Empagliflozin 10 Mg Tablet PO 10 mg DAILY KASH Administration Enoxaparin Sodium 40 mg 01/06/25 09:00 01/09/25 10:40 Enoxaparin 40 Mg/0.4 Ml Syringe SUB-Q 40 mg DAILY KASH Administration Famotidine 40 mg 01/06/25 09:00 01/09/25 10:38 Famotidine 20 Mg Tablet PO 40 mg DAILY KASH Administration Fluticasone Propionate 1 spray 01/06/25 09:00 01/09/25 10:43 Fluticasone Propionate 0.05% Na Spr 16 Gm Btl (*Bkc) NASAL 1 spray Q12HR KASH Administration Fluticasone/Umeclidinium/Vilanterol 1 puff 01/06/25 08:00 01/09/25 08:46 Fluticasone/Umeclidin/Vilanter 200-62.5-25 Mcg Ellipta INHALATION 1 puff DAILYRT KASH Administration Glucagon 1 mg 01/05/25 21:55 Glucagon For Inj 1 Mg Vial IM PRN PRN Hypoglycemia Protocol Glucose 15 gm 01/05/25 21:55 Glucose Oral Gel 15 Gm Of Glucse In 37.5 Gm Tube PO PRN PRN Hypoglycemia Protocol Guaifenesin 1,200 mg 01/07/25 09:00 01/09/25 10:39 Guaifenesin 12 Hr 600 Mg Tabcr PO 1,200 mg Q12HR KASH Administration Dextrose 1,000 mls @ 100 mls/hr 01/05/25 21:55 Dextrose 5% 1,000 Ml IVPB PRN PRN Hypoglycemia Protocol Insulin Aspart 4 - 8 units 01/06/25 08:00 01/09/25 10:36 Insulin Aspart (*Bkc) 100 Units/Ml SUB-Q Not Given TIDWM KASH Protocol Loratadine 10 mg 01/06/25 09:00 01/09/25 10:40 Loratadine 10 Mg Tablet PO 10 mg QAM KASH Administration Losartan Potassium 100 mg 01/06/25 09:00 01/09/25 10:39 Losartan Potassium 100 Mg Tablet PO 100 mg DAILY KASH Administration Metoprolol Succinate 50 mg 01/06/25 09:00 01/09/25 10:39 Metoprolol Succinate Ext Rel 50 Mg Tabcr PO 50 mg QAM KASH Administration Montelukast Sodium 10 mg 01/05/25 21:55 01/08/25 21:57 Montelukast Sodium 10 Mg Tablet PO 10 mg HS KASH Administration Oxycodone HCl 10 mg 01/05/25 21:48 01/09/25 05:42 Oxycodone Hcl (*Crx) 5 Mg Tab Ir PO 10 mg Q4H PRN Administration Pain Rated 7-10 Oxycodone HCl 5 mg 01/05/25 22:36 01/08/25 13:12 Oxycodone Hcl (*Crx) 5 Mg Tab Ir PO 5 mg Q4H PRN Administration Pain Rated 4-6 Polyethylene Glycol 17 gm 01/06/25 09:00 01/09/25 10:38 Polyethylene Glycol 3350 17 Gm Powd.Pack PO 17 gm QAM KASH Administration Prednisone 40 mg 01/09/25 08:00 01/09/25 10:39 Prednisone 20 Mg Tablet PO 40 mg DAILY@0800 KASH Administration Rosuvastatin Calcium 5 mg 01/06/25 09:00 01/09/25 10:39 Rosuvastatin 5 Mg Tablet PO 5 mg DAILY KASH Administration Sitagliptin Phosphate 25 mg 01/06/25 09:00 01/09/25 10:40 Sitagliptin Phosphate 25 Mg Tablet PO 25 mg QAM KASH Administration Vitamin B Complex 2 cap 01/06/25 09:00 01/09/25 10:39 Vitamin B Complex Capsule PO 2 cap DAILY KASH Administration Radiology Results: ITS Impressions Chest X-Ray 01/05/25 15:25 Impression: 1: Bibasilar infiltrates may represent pneumonia and/or atelectasis. Chest/Abdomen/Pelvis CTA 01/07/25 07:34 IMPRESSION: CHEST- 1. No PE. 2. Bibasilar aspiration and atelectasis. ABDOMEN/PELVIS- 1. Periumbilical fluid collection subcutaneous soft tissues; seroma and/or abscess. 2. Upper abdominal wall subcutaneous emphysema consistent with postoperative change. 3. No acute abnormality within abdomen and pelvis. Labs Labs: Laboratory Results - last 24 hr 01/08/25 01/08/25 01/08/25 11:39 17:08 20:18 WBC RBC Hgb Hct MCV MCH MCHC RDW Plt Count MPV Immature Gran % (Auto) Neut % (Auto) Lymph % (Auto) [place] % (Auto) Eos % (Auto) Baso % (Auto) Lymph # (Auto) [place] # (Auto) Eos # (Auto) Baso # (Auto) Abs Immat Gran (auto) Absolute Neuts (auto) Absolute Nucleated RBC Nucleated RBC % Sodium Potassium Chloride Carbon Dioxide Anion Gap BUN Creatinine Estim Creat Clear Calc Estimated GFR Glucose POC Capillary Glucose 116 H 198 H 162 H Calcium Magnesium Total Bilirubin AST ALT Alkaline Phosphatase Total Protein Albumin 01/09/25 01/09/25 04:27 07:47 WBC 9.7 RBC 4.58 Hgb 14.9 Hct 45.4 MCV 99.1 MCH 32.5 MCHC 32.8 RDW 13.6 Plt Count 232 MPV 10.4 Immature Gran % (Auto) 1.3 H Neut % (Auto) 69.4 Lymph % (Auto) 19.7 [place] % (Auto) 6.5 Eos % (Auto) 2.7 Baso % (Auto) 0.4 Lymph # (Auto) 1.92 [place] # (Auto) 0.6 Eos # (Auto) 0.3 Baso # (Auto) 0.0 Abs Immat Gran (auto) 0.13 H Absolute Neuts (auto) 6.8 H Absolute Nucleated RBC 0.000 Nucleated RBC % 0.0 Sodium 136 L Potassium 4.3 Chloride 99 Carbon Dioxide 31 H Anion Gap 6 BUN 19 H Creatinine 0.61 L Estim Creat Clear Calc 99 Estimated GFR > 60 Glucose 105 POC Capillary Glucose 98 Calcium 9.0 Magnesium 2.1 Total Bilirubin 0.7 AST 39 H ALT 43 H Alkaline Phosphatase 80 Total Protein 6.9 Albumin 3.7
--- NOTE | 2025-01-09 13:30 | P.PNIM_ITS ---
Progress Note: A&P Assessment and Plan (1) Community acquired pneumonia: Qualifiers: Laterality: unspecified laterality Qualified Code(s): J18.9 - Pneumonia, unspecified organism Code(s): J18.9 - Pneumonia, unspecified organism Status: Acute Assessment and Plan: * Bilateral LL postop, possible aspiration * Continue Amoxiclav and doxycycline (started 01/05/2025) * 01/09/2025 seems a little better, hemoptysis likely due to infection, pulmonology consulted (sees Dr. Lopez) (2) Acute UTI: Code(s): N39.0 - Urinary tract infection, site not specified Status: Acute Assessment and Plan: * 01/05/2025 Urinalysis with 3+ glucose, 3+ blood, positive nitrates, 2+ leukocyte esterase, 51-100 rbc's, greater than 100 wbc's and 4+ bacteria. Prior urine culture E coli in 2022 was pansensitive. * 01/08/2025 GNR's, ID and sensitivities pending * Continue Amoxiclav (started 01/05/2025) * 01/08/2025 Ordered PT/OT (3) Acute exacerbation of chronic obstructive pulmonary disease: Code(s): J44.1 - Chronic obstructive pulmonary disease with (acute) exacerbation Status: Acute Assessment and Plan: * Continue antibiotics, prn ipratropium * 01/08/2025 Added prednisone 40 mg daily (4) Acute respiratory failure with hypoxia: Code(s): J96.01 - Acute respiratory failure with hypoxia Status: Acute Assessment and Plan: * Resolved 01/07/2025 (5) Leukocytosis: Code(s): D72.829 - Elevated white blood cell count, unspecified Status: Acute Assessment and Plan: * In part due to steroids received prior to CT * 01/08/2025 improved to 14.3k, 01/09/2025 9.7 (6) APRIL on CPAP: Code(s): G47.33 - Obstructive sleep apnea (adult) (pediatric); Z99.89 - Dependence on other enabling machines and devices Status: Chronic Assessment and Plan: * Continue CPAP while sleeping (7) Personal history of nicotine dependence: Code(s): Z87.891 - Personal history of nicotine dependence Status: Chronic Assessment and Plan: * 1.5 ppd for 42 years * Currently abstaining (8) DM type 2 (diabetes mellitus, type 2): Qualifiers: Diabetes mellitus shelter insulin use: without joint terminal attack controller use Diabetes mellitus complication status: without complication Qualified Code(s): E11.9 - Type 2 diabetes mellitus without complications Code(s): E11.9 - Type 2 diabetes mellitus without complications Status: Acute Assessment and Plan: * Continue SSI * May need to add basal insulin while on steroids * 01/08/2025 FBs 120, 01/09 98 (9) Abnormal liver enzymes: Code(s): R74.8 - Abnormal levels of other serum enzymes Status: Acute Assessment and Plan: * Fatty liver at basline * Current elevation likely reactive Subjective Date/time seen: 01/09/25 13:30 Interval history: Ate well. Continues to cough up blood-streaked sputum. Aching in chest worse with coughing. Walk twice around unit this morning. Bowel still soft but more formed. No blood noted in stool or urine. Puffiness in feet a little worse than baseline. Review of Systems Review of Systems: All systems reviewed & are unremarkable except as noted in HPI and below Exam Narrative: HEENT: PERRL, sclerae nonicteric, pharyngeal mucosa pink and intact NECK: No JVD, adenopathy, or thyromegaly CHEST: Normal, coarse BS throughout with scattered coarse LL crackles, no egophony, vocal fremitus, or dullness HEART: NL S1/S2, regular, 2/6 RUSB LADAN w/o radiation ABDOMEN: BS+, soft, incisional tenderness EXTREMITIES: 1+ pretibial pitting edema bilaterally NEUROLOGIC: CN intact and symmetric to inspection MUSCULOSKELETAL: Tone and strength symmetric PSYCH: Alert. Oriented to person, place, and time Objective Data Vital Signs Vital Signs: Vital Signs - 24 hr 01/08/25 16:05 01/08/25 16:10 01/08/25 18:03 Temperature 98.5 F Pulse Rate 72 68 75 Respiratory Rate 18 18 18 Blood Pressure 107/49 L Pulse Oximetry 92 Oxygen Delivery 01/08/25 20:00 01/08/25 20:00 01/08/25 20:12 Temperature 98.4 F Pulse Rate 68 69 Respiratory Rate 18 18 Blood Pressure 122/62 Pulse Oximetry 92 Oxygen Delivery Room Air 01/08/25 20:12 01/08/25 20:20 01/08/25 22:24 Temperature Pulse Rate 69 66 68 Respiratory Rate 18 Blood Pressure Pulse Oximetry 93 94 Oxygen Delivery Room Air CPAP 01/09/25 00:00 01/09/25 02:50 01/09/25 02:52 Temperature 99.2 F Pulse Rate 103 H 62 62 Respiratory Rate 18 18 Blood Pressure 122/80 Pulse Oximetry 91 96 Oxygen Delivery CPAP 01/09/25 02:56 01/09/25 04:00 01/09/25 06:39 Temperature 98.0 F 97.9 F Pulse Rate 63 63 60 Respiratory Rate 18 18 18 Blood Pressure 109/53 L 121/62 Pulse Oximetry 93 93 Oxygen Delivery 01/09/25 08:00 01/09/25 08:20 01/09/25 08:47 Temperature 97.2 F L Pulse Rate 64 Respiratory Rate 18 Blood Pressure 140/71 Pulse Oximetry 91 90 Oxygen Delivery Room Air Room Air 01/09/25 08:47 01/09/25 09:00 01/09/25 12:02 Temperature Pulse Rate 66 63 Respiratory Rate 18 18 20 Blood Pressure Pulse Oximetry Oxygen Delivery 01/09/25 12:13 Temperature Pulse Rate 67 Respiratory Rate 20 Blood Pressure Pulse Oximetry Oxygen Delivery Intake/Output Intake/Output: Intake & Output 01/06/25 01/07/25 01/08/25 01/09/25 23:59 23:59 23:59 23:59 Intake Total 960 1320 1960 120 Balance 960 1320 1960 120 Meds/Results Medications: Active Medications Generic Name Dose Route Start Last Admin Trade Name Freq PRN Reason Stop Dose Admin Acetaminophen 1,000 mg 01/05/25 19:47 01/05/25 21:45 Acetaminophen 500 Mg Tablet PO 1,000 mg Q6H PRN Administration Mild Pain (1-3) or Fever Albuterol/Ipratropium 3 ml 01/06/25 08:00 01/09/25 12:02 Ipratropium 0.5 Mg/Albuterol Sulfate 2.5 Mg Ampul.Neb 3 Ml INHALATION 3 ml Q4HRT KASH Administration Amoxicillin/Clavulanate Potassium 1 tablet 01/05/25 21:00 01/09/25 10:39 Amoxicillin/Clavulanate K 875-125 Mg Tab PO 1 tablet Q12HR KASH Administration Aspirin 81 mg 01/06/25 09:00 01/09/25 10:40 Aspirin 81 Mg Enteric Tablet PO 81 mg DAILY KASH Administration Benzonatate 100 mg 01/05/25 21:48 01/08/25 19:34 Benzonatate 100 Mg Capsule PO 100 mg BID PRN Administration Cough Cyclobenzaprine HCl 5 mg 01/05/25 21:50 01/08/25 21:57 Cyclobenzaprine Hcl 5 Mg Tablet PO 5 mg HS KASH Administration Dextrose 12.5 gm 01/05/25 21:55 Dextrose 50% 25 Gm/50 Ml Syringe IV PUSH PRN PRN Hypoglycemia Protocol Docusate Sodium 100 mg 01/05/25 22:40 01/09/25 10:39 Docusate Sodium 100 Mg Capsule PO 100 mg Q12HR KASH Administration Doxycycline Hyclate 100 mg 01/06/25 09:00 01/09/25 10:38 Doxycycline Hyclate 100 Mg Tablet PO 100 mg Q12HR KASH Administration Duloxetine HCl 60 mg 01/06/25 09:00 01/09/25 10:38 Duloxetine Hcl 60 Mg Capsule.Dr PO 60 mg DAILY KASH Administration Empagliflozin 10 mg 01/06/25 09:00 01/09/25 10:40 Empagliflozin 10 Mg Tablet PO 10 mg DAILY KASH Administration Enoxaparin Sodium 40 mg 01/06/25 09:00 01/09/25 10:40 Enoxaparin 40 Mg/0.4 Ml Syringe SUB-Q 40 mg DAILY KASH Administration Famotidine 40 mg 01/06/25 09:00 01/09/25 10:38 Famotidine 20 Mg Tablet PO 40 mg DAILY KASH Administration Fluticasone Propionate 1 spray 01/06/25 09:00 01/09/25 10:43 Fluticasone Propionate 0.05% Na Spr 16 Gm Btl (*Bkc) NASAL 1 spray Q12HR KASH Administration Fluticasone/Umeclidinium/Vilanterol 1 puff 01/06/25 08:00 01/09/25 08:46 Fluticasone/Umeclidin/Vilanter 200-62.5-25 Mcg Ellipta INHALATION 1 puff DAILYRT KASH Administration Glucagon 1 mg 01/05/25 21:55 Glucagon For Inj 1 Mg Vial IM PRN PRN Hypoglycemia Protocol Glucose 15 gm 01/05/25 21:55 Glucose Oral Gel 15 Gm Of Glucse In 37.5 Gm Tube PO PRN PRN Hypoglycemia Protocol Guaifenesin 1,200 mg 01/07/25 09:00 01/09/25 10:39 Guaifenesin 12 Hr 600 Mg Tabcr PO 1,200 mg Q12HR KASH Administration Dextrose 1,000 mls @ 100 mls/hr 01/05/25 21:55 Dextrose 5% 1,000 Ml IVPB PRN PRN Hypoglycemia Protocol Insulin Aspart 4 - 8 units 01/06/25 08:00 01/09/25 10:36 Insulin Aspart (*Bkc) 100 Units/Ml SUB-Q Not Given TIDWM [facility] Protocol Loratadine 10 mg 01/06/25 09:00 01/09/25 10:40 Loratadine 10 Mg Tablet PO 10 mg QAM KASH Administration Losartan Potassium 100 mg 01/06/25 09:00 01/09/25 10:39 Losartan Potassium 100 Mg Tablet PO 100 mg DAILY KASH Administration Metoprolol Succinate 50 mg 01/06/25 09:00 01/09/25 10:39 Metoprolol Succinate Ext Rel 50 Mg Tabcr PO 50 mg QAM KASH Administration Montelukast Sodium 10 mg 01/05/25 21:55 01/08/25 21:57 Montelukast Sodium 10 Mg Tablet PO 10 mg HS KASH Administration Oxycodone HCl 10 mg 01/05/25 21:48 01/09/25 05:42 Oxycodone Hcl (*Crx) 5 Mg Tab Ir PO 10 mg Q4H PRN Administration Pain Rated 7-10 Oxycodone HCl 5 mg 01/05/25 22:36 01/08/25 13:12 Oxycodone Hcl (*Crx) 5 Mg Tab Ir PO 5 mg Q4H PRN Administration Pain Rated 4-6 Polyethylene Glycol 17 gm 01/06/25 09:00 01/09/25 10:38 Polyethylene Glycol 3350 17 Gm Powd.Pack PO 17 gm QAM KASH Administration Prednisone 40 mg 01/09/25 08:00 01/09/25 10:39 Prednisone 20 Mg Tablet PO 40 mg DAILY@0800 KASH Administration Rosuvastatin Calcium 5 mg 01/06/25 09:00 01/09/25 10:39 Rosuvastatin 5 Mg Tablet PO 5 mg DAILY KASH Administration Sitagliptin Phosphate 25 mg 01/06/25 09:00 01/09/25 10:40 Sitagliptin Phosphate 25 Mg Tablet PO 25 mg QAM KASH Administration Vitamin B Complex 2 cap 01/06/25 09:00 01/09/25 10:39 Vitamin B Complex Capsule PO 2 cap DAILY KASH Administration Radiology Results: ITS Impressions Chest X-Ray 01/05/25 15:25 Impression: 1: Bibasilar infiltrates may represent pneumonia and/or atelectasis. Chest/Abdomen/Pelvis CTA 01/07/25 07:34 IMPRESSION: CHEST- 1. No PE. 2. Bibasilar aspiration and atelectasis. ABDOMEN/PELVIS- 1. Periumbilical fluid collection subcutaneous soft tissues; seroma and/or abscess. 2. Upper abdominal wall subcutaneous emphysema consistent with postoperative change. 3. No acute abnormality within abdomen and pelvis. Labs Labs: Laboratory Results - last 24 hr 01/08/25 01/08/25 01/09/25 17:08 20:18 04:27 WBC 9.7 RBC 4.58 Hgb 14.9 Hct 45.4 MCV 99.1 MCH 32.5 MCHC 32.8 RDW 13.6 Plt Count 232 MPV 10.4 Immature Gran % (Auto) 1.3 H Neut % (Auto) 69.4 Lymph % (Auto) 19.7 [place] % (Auto) 6.5 Eos % (Auto) 2.7 Baso % (Auto) 0.4 Lymph # (Auto) 1.92 [place] # (Auto) 0.6 Eos # (Auto) 0.3 Baso # (Auto) 0.0 Abs Immat Gran (auto) 0.13 H Absolute Neuts (auto) 6.8 H Absolute Nucleated RBC 0.000 Nucleated RBC % 0.0 Sodium 136 L Potassium 4.3 Chloride 99 Carbon Dioxide 31 H Anion Gap 6 BUN 19 H Creatinine 0.61 L Estim Creat Clear Calc 99 Estimated GFR > 60 Glucose 105 POC Capillary Glucose 198 H 162 H Calcium 9.0 Magnesium 2.1 Total Bilirubin 0.7 AST 39 H ALT 43 H Alkaline Phosphatase 80 Total Protein 6.9 Albumin 3.7 01/09/25 01/09/25 07:47 12:41 WBC RBC Hgb Hct MCV MCH MCHC RDW Plt Count MPV Immature Gran % (Auto) Neut % (Auto) Lymph % (Auto) [place] % (Auto) Eos % (Auto) Baso % (Auto) Lymph # (Auto) [place] # (Auto) Eos # (Auto) Baso # (Auto) Abs Immat Gran (auto) Absolute Neuts (auto) Absolute Nucleated RBC Nucleated RBC % Sodium Potassium Chloride Carbon Dioxide Anion Gap BUN Creatinine Estim Creat Clear Calc Estimated GFR Glucose POC Capillary Glucose 98 99 Calcium Magnesium Total Bilirubin AST ALT Alkaline Phosphatase Total Protein Albumin
[2025-01-09] MEDS: oxyCODONE HCL (*CRX) 5 MG TAB IR PO (13:53)
--- NOTE | 2025-01-09 15:07 | PCPTNOTE ---
per RN, pt has been up and walking in halls independently, spoke with pt about mobility needs and pt does not have any concerns, will discharge PT orders d/t pt's independence
[2025-01-09] MEDS: BISACODYL 10 MG SUPPOSITORY RECTAL (16:37)
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
[2025-01-09] MEDS: MONTELUKAST SODIUM 10 MG TABLET PO (21:24)
[2025-01-09] MEDS: CYCLOBENZAPRINE HCL 5 MG TABLET PO (21:24)
[2025-01-09] MEDS: ACETAMINOPHEN 500 MG TABLET 1000 MG PO (21:56)
[2025-01-10] VITALS (12 sets, daily range): BP systolic 114–127; BP diastolic 56–75; PULSE 62–93; RESP 17–18; TEMP 36.1–36.6; O2SAT 94–100
[2025-01-10] MEDS: oxyCODONE HCL (*CRX) 5 MG TAB IR PO (03:30)
[2025-01-10] MEDS: IPRATROPIUM 0.5 MG/ALBUTEROL SULFATE 2.5 MG AMPUL.NEB 3 ML INHALATION ×3 (04:11→13:25)
[2025-01-10 05:54] LABS: Hematocrit 45.2 % (37.0-47.0); Hemoglobin 14.7 g/dL (12.0-15.0); Immature Granulocyte Percent A 2.2 % (0-0.5); Lymphocytes Absolute Auto 2.82 K/mm3 (0.9-3.2); Mean Corpuscular HGB Conc 32.5 g/dl (32-36); Mean Corpuscular Hemoglobin 32.4 pg (26-34); Mean Corpuscular Volume 99.6 fl (80-100); Nucleated Red Blood Cells Absolute Auto 0.000 K/mm3 (0.0-0.012); Nucleated Red Blood Cells Perc 0.0 % (0.0-0.2); Platelet Count Result 262 k/mm3 (150-375); Red Blood Count 4.54 M/mm3 (4.2-5.4); White Blood Count 12.3 K/mm3 (4.5-10.0)
[2025-01-10 06:17] LABS: Alanine Aminotransferase 44 U/L (6-35); Albumin Level 3.6 g/dL (3.5-5.1); Alkaline Phosphatase 76 U/L (38-126); Anion Gap 4 mmol/L (4-12); Aspartate Amino Transferase 38 U/L (14-36); Bilirubin,Total 0.6 mg/dL (0.2-1.3); Blood Urea Nitrogen 18 mg/dL (7-17); Calcium 8.9 mg/dL (8.4-10.2); Carbon Dioxide 32 mmol/L (22-30); Chloride 100 mmol/L (98-107); Estimated CRCL calculation 99 ml/min; Estimated Glomerular Filt Rate > 60; Glucose 96 mg/dL (65-110); Magnesium 2.2 mg/dL (1.6-2.3); Potassium 3.9 mmol/L (3.4-5.0); Sodium 136 mmol/L (137-145); Total Protein 6.8 g/dL (6.3-8.2)
[2025-01-10] MEDS: FLUTICASONE/UMECLIDIN/VILANTER 200-62.5-25 MCG ELLIPTA 1 PUFF INHALATION (08:16)
[2025-01-10] MEDS: FAMOTIDINE 20 MG TABLET 40 MG PO (08:32)
[2025-01-10] MEDS: METOPROLOL SUCCINATE EXT REL 50 MG TABCR PO (08:33)
[2025-01-10] MEDS: ROSUVASTATIN 5 MG TABLET PO (08:33)
[2025-01-10] MEDS: DOXYCYCLINE HYCLATE 100 MG TABLET PO (08:33)
[2025-01-10] MEDS: DULoxetine HCL 60 MG CAPSULE.DR PO (08:33)
[2025-01-10] MEDS: DOCUSATE SODIUM 100 MG CAPSULE PO (08:33)
[2025-01-10] MEDS: ASPIRIN 81 MG ENTERIC TABLET PO (08:33)
[2025-01-10] MEDS: VITAMIN B COMPLEX CAPSULE 2 CAP PO (08:33)
[2025-01-10] MEDS: LOSARTAN POTASSIUM 100 MG TABLET PO (08:33)
[2025-01-10] MEDS: EMPAGLIFLOZIN 10 MG TABLET PO (08:34)
[2025-01-10] MEDS: LORATADINE 10 MG TABLET PO (08:34)
[2025-01-10] MEDS: guaiFENesin 12 HR 600 MG TABCR 1200 MG PO (08:34)
[2025-01-10] MEDS: FLUTICASONE PROPIONATE 0.05% NA SPR 16 GM BTL (*BKC) 1 SPRAY NASAL (08:37)
[2025-01-10] MEDS: MAGNESIUM CITRATE 300 ML BTL 150 ML PO (09:13)
--- NOTE | 2025-01-10 11:44 | P.PNPL_ITS ---
Progress Note: A&P Assessment and Plan (1) COPD (chronic obstructive pulmonary disease): Code(s): J44.9 - Chronic obstructive pulmonary disease, unspecified Status: Acute Assessment and Plan: 01/10/2025: Patient tells me she is doing better. Overall feels about the same as yesterday and has 40-50% back to her normal. The abdominal binder causes her some to take shallow breaths. Her cough is better, her phlegm is improved and is now yellow instead of green. She has no hemoptysis. She is afebrile. Room air saturations 99%. White blood cell count 12.3. She has no wheezing on exam. She tells me she is ready to go home today. Plan: From a pulmonary perspective patient is ready to be discharged on these pulmonary medicines: Prednisone 40 mg p.o. q.day x4 days. Augmentin 875-125 p.o. b.i.d. x5 days Doxycycline 100 mg p.o. b.i.d. x5 days Trelegy 200-60 2.5-25 at 1 puff q.day Albuterol inhaler 2 puffs q.4 hours p.r.n. shortness of breath or wheezing Albuterol nebulizer 2.5 mg q.4 hours p.r.n. shortness of breath or wheezing Oxygen per formal home O2 assessment which I have ordered. Follow-up in the Pulmonary Clinic in 4 weeks. 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 Discussed with Dr. Olivares, will sign off, call with questions. (2) Cigarette nicotine dependence, uncomplicated: Code(s): F17.210 - Nicotine dependence, cigarettes, uncomplicated Status: Acute Assessment and Plan: Patient was smoking up until this admission. 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 The patient tells me she will quit smoking altogether at this point. Plan: I have informed her that smoke some cigarettes are actively killing her and that she should stop immediately. The family is aware of this and has removed all cigarettes from the house. Tobacco cessation counseling was performed. Last low-dose CT scan 12/15/2024. (3) APRIL on CPAP: Code(s): G47.33 - Obstructive sleep apnea (adult) (pediatric); Z99.89 - Dependence on other enabling machines and devices Status: Chronic Assessment and Plan: Patient is tolerating her home CPAP machine from [email or web address]. She will continue this at home. Subjective Date/time seen: 01/10/25 11:44 Interval history: 01/09/25: NEW Pulmonary consult: Leslie Evans is a 59-year-old woman with COPD, was last seen in our office a couple of years ago. She presented with symptoms consistent with community-acquired pneumonia, cough, shortness of breath and acute respiratory failure requiring supplemental oxygen. CTA on January 07 showed bibasilar infiltrates and atelectasis, right base greater than left. 01/10/2025: Patient tells me she is doing better. Overall feels about the same as yesterday and has 40-50% back to her normal. The abdominal binder causes her some to take shallow breaths. Her cough is better, her phlegm is improved and is now yellow instead of green. She has no hemoptysis. She is afebrile. Room air saturations 99%. White blood cell count 12.3. She has no wheezing on exam. She tells me she is ready to go home today. DATA * 01/07/25 CTA; CHEST- . No PE.; Bibasilar aspiration and atelectasis. Right greater than left infiltrates in the bases Review of Systems Constitutional: Constitutional: Reports no additional constitutional complaints Eyes: Eyes: Reports no additional eye complaints ENT: Reports system reviewed and no additional complaints, except as documented Cardiovascular: Cardiovascular: Reports no additional cardiovascular complaints Respiratory: Respiratory: Reports no additional respiratory complaints Gastrointestinal: Gastrointestinal: Reports no additional gastrointestinal complaints Musculoskeletal: Musculoskeletal: Reports no additional musculoskeletal complaints Neurologic: Reports system reviewed and no additional complaints, except as documented Psychiatric: Psychiatric: Reports no additional psychiatric complaints Endocrine: Endocrine: Reports no additional endocrine complaints Hematologic/Lymphatic: Hematologic/Lymphatic: Reports no additional hematologic/lymphatic complaints Allergic/Immunologic: Allergic/Immunologic: Reports no additional allergic/immunologic complaints Exam Const: General: cooperative, healthy appearing and comfortable Orientation/consciousness: oriented to person, oriented to place and oriented to time HENMT: Head: normal to inspection Ears: hearing grossly normal bilaterally Eyes: General: appearance normal, both eyes and all related structures Neck: Neck: normal visual inspection Chest: Chest palpation & inspection: normal inspection of the chest Resp: Effort & Inspection: normal respiratory effort and able to speak in complete sentences Auscultation: no crackles, no rales, no rhonchi, no wheezes and lung sounds not diminished Cardio: Jugular venous distension: no JVD GI: Inspection: normal to inspection GI Palp: Yes abdominal tenderness and Yes Tenderness to palpation present (GI) Other: Abdominal binder is on. Skin: General skin exam: normal color Neuro: General: oriented to person, oriented to place and oriented to time Extrem: General: normal to inspection Psych: Appearance: grossly normal Objective Data Vital Signs Vital Signs: Vital Signs - 24 hr 01/09/25 12:00 01/09/25 12:02 01/09/25 12:13 Temperature 36.4 C Pulse Rate 68 63 67 Respiratory Rate 20 20 20 Blood Pressure 132/58 L Pulse Oximetry 97 Oxygen Delivery 01/09/25 16:00 01/09/25 16:26 01/09/25 19:41 Temperature 36.1 C L 36.8 C Pulse Rate 69 68 73 Respiratory Rate 16 20 17 Blood Pressure 105/60 125/61 Pulse Oximetry 97 95 Oxygen Delivery 01/09/25 20:00 01/09/25 20:25 01/09/25 20:35 Temperature Pulse Rate 93 93 Respiratory Rate 18 18 Blood Pressure Pulse Oximetry Oxygen Delivery Room Air 01/09/25 21:13 01/09/25 23:30 01/09/25 23:34 Temperature Pulse Rate 62 93 Respiratory Rate 18 Blood Pressure Pulse Oximetry 92 94 Oxygen Delivery Room Air CPAP 01/09/25 23:38 01/09/25 23:38 01/10/25 02:15 Temperature 36.7 C Pulse Rate 93 62 Respiratory Rate 18 18 Blood Pressure 117/62 Pulse Oximetry 94 Oxygen Delivery CPAP 01/10/25 04:12 01/10/25 04:12 01/10/25 04:19 Temperature Pulse Rate 93 93 Respiratory Rate 18 18 Blood Pressure Pulse Oximetry Oxygen Delivery CPAP 01/10/25 04:35 01/10/25 08:06 01/10/25 08:14 Temperature 36.6 C Pulse Rate 62 62 62 Respiratory Rate 17 18 18 Blood Pressure 114/56 L Pulse Oximetry 94 96 Oxygen Delivery Room Air 01/10/25 08:16 01/10/25 08:33 Temperature Pulse Rate 69 70 Respiratory Rate 18 Blood Pressure Pulse Oximetry Oxygen Delivery Intake/Output Intake/Output: Intake & Output 01/07/25 01/08/25 01/09/2501/10/25 23:59 23:59 23:59 23:59 Intake Total 1320 1960 1810 590 Balance 1320 1960 1810 590 Meds/Results Medications: Active Medications Generic Name Dose Route Start Last Admin Trade Name Freq PRN Reason Stop Dose Admin Acetaminophen 1,000 mg 01/05/25 19:47 01/09/25 21:56 Acetaminophen 500 Mg Tablet PO 1,000 mg Q6H PRN Administration Mild Pain (1-3) or Fever Albuterol/Ipratropium 3 ml 01/06/25 08:00 01/10/25 08:06 Ipratropium 0.5 Mg/Albuterol Sulfate 2.5 Mg Ampul.Neb 3 Ml INHALATION 3 ml Q4HRT KASH Administration Amoxicillin/Clavulanate Potassium 1 tablet 01/05/25 21:00 01/10/25 08:33 Amoxicillin/Clavulanate K 875-125 Mg Tab PO 1 tablet Q12HR KASH Administration Aspirin 81 mg 01/06/25 09:00 01/10/25 08:33 Aspirin 81 Mg Enteric Tablet PO 81 mg DAILY KASH Administration Benzonatate 100 mg 01/05/25 21:48 01/08/25 19:34 Benzonatate 100 Mg Capsule PO 100 mg BID PRN Administration Cough Cyclobenzaprine HCl 5 mg 01/05/25 21:50 01/09/25 21:24 Cyclobenzaprine Hcl 5 Mg Tablet PO 5 mg HS KASH Administration Dextrose 12.5 gm 01/05/25 21:55 Dextrose 50% 25 Gm/50 Ml Syringe IV PUSH PRN PRN Hypoglycemia Protocol Docusate Sodium 100 mg 01/05/25 22:40 01/10/25 08:33 Docusate Sodium 100 Mg Capsule PO 100 mg Q12HR KASH Administration Doxycycline Hyclate 100 mg 01/06/25 09:00 01/10/25 08:33 Doxycycline Hyclate 100 Mg Tablet PO 100 mg Q12HR KASH Administration Duloxetine HCl 60 mg 01/06/25 09:00 01/10/25 08:33 Duloxetine Hcl 60 Mg Capsule.Dr PO 60 mg DAILY KASH Administration Empagliflozin 10 mg 01/06/25 09:00 01/10/25 08:34 Empagliflozin 10 Mg Tablet PO 10 mg DAILY KASH Administration Enoxaparin Sodium 40 mg 01/06/25 09:00 01/10/25 08:46 Enoxaparin 40 Mg/0.4 Ml Syringe SUB-Q Not Given DAILY KASH Famotidine 40 mg 01/06/25 09:00 01/10/25 08:32 Famotidine 20 Mg Tablet PO 40 mg DAILY KASH Administration Fluticasone Propionate 1 spray 01/06/25 09:00 01/10/25 08:37 Fluticasone Propionate 0.05% Na Spr 16 Gm Btl (*Bkc) NASAL 1 spray Q12HR KASH Administration Fluticasone/Umeclidinium/Vilanterol 1 puff 01/06/25 08:00 01/10/25 08:16 Fluticasone/Umeclidin/Vilanter 200-62.5-25 Mcg Ellipta INHALATION 1 puff DAILYRT KASH Administration Glucagon 1 mg 01/05/25 21:55 Glucagon For Inj 1 Mg Vial IM PRN PRN Hypoglycemia Protocol Glucose 15 gm 01/05/25 21:55 Glucose Oral Gel 15 Gm Of Glucse In 37.5 Gm Tube PO PRN PRN Hypoglycemia Protocol Guaifenesin 1,200 mg 01/07/25 09:00 01/10/25 08:34 Guaifenesin 12 Hr 600 Mg Tabcr PO 1,200 mg Q12HR KASH Administration Dextrose 1,000 mls @ 100 mls/hr 01/05/25 21:55 Dextrose 5% 1,000 Ml IVPB PRN PRN Hypoglycemia Protocol Insulin Aspart 4 - 8 units 01/06/25 08:00 01/10/25 08:34 Insulin Aspart (*Bkc) 100 Units/Ml SUB-Q Not Given TIDWM KASH Protocol Loratadine 10 mg 01/06/25 09:00 01/10/25 08:34 Loratadine 10 Mg Tablet PO 10 mg QAM KASH Administration Losartan Potassium 100 mg 01/06/25 09:00 01/10/25 08:33 Losartan Potassium 100 Mg Tablet PO 100 mg DAILY KASH Administration Metoprolol Succinate 50 mg 01/06/25 09:00 01/10/25 08:33 Metoprolol Succinate Ext Rel 50 Mg Tabcr PO 50 mg QAM KASH Administration Montelukast Sodium 10 mg 01/05/25 21:55 01/09/25 21:24 Montelukast Sodium 10 Mg Tablet PO 10 mg HS KASH Administration Oxycodone HCl 10 mg 01/05/25 21:48 01/09/25 05:42 Oxycodone Hcl (*Crx) 5 Mg Tab Ir PO 10 mg Q4H PRN Administration Pain Rated 7-10 Oxycodone HCl 5 mg 01/05/25 22:36 01/10/25 03:30 Oxycodone Hcl (*Crx) 5 Mg Tab Ir PO 5 mg Q4H PRN Administration Pain Rated 4-6 Polyethylene Glycol 17 gm 01/06/25 09:00 01/10/25 08:47 Polyethylene Glycol 3350 17 Gm Powd.Pack PO Not Given QAM KASH Prednisone 40 mg 01/09/25 08:00 01/10/25 08:34 Prednisone 20 Mg Tablet PO 40 mg DAILY@0800 KASH Administration Rosuvastatin Calcium 5 mg 01/06/25 09:00 01/10/25 08:33 Rosuvastatin 5 Mg Tablet PO 5 mg DAILY KASH Administration Sitagliptin Phosphate 25 mg 01/06/25 09:00 01/10/25 08:33 Sitagliptin Phosphate 25 Mg Tablet PO 25 mg QAM KASH Administration Vitamin B Complex 2 cap 01/06/25 09:00 01/10/25 08:33 Vitamin B Complex Capsule PO 2 cap DAILY KASH Administration Radiology Results: ITS Impressions Chest X-Ray 01/05/25 15:25 Impression: 1: Bibasilar infiltrates may represent pneumonia and/or atelectasis. Chest/Abdomen/Pelvis CTA 01/07/25 07:34 IMPRESSION: CHEST- 1. No PE. 2. Bibasilar aspiration and atelectasis. ABDOMEN/PELVIS- 1. Periumbilical fluid collection subcutaneous soft tissues; seroma and/or abscess. 2. Upper abdominal wall subcutaneous emphysema consistent with postoperative change. 3. No acute abnormality within abdomen and pelvis. Labs Labs: Laboratory Results - last 24 hr 01/06/25 01/09/25 01/09/25 01:09 12:41 17:05 WBC RBC Hgb Hct MCV MCH MCHC RDW Plt Count MPV Immature Gran % (Auto) Neut % (Auto) Lymph % (Auto) [place] % (Auto) Eos % (Auto) Baso % (Auto) Lymph # (Auto) [place] # (Auto) Eos # (Auto) Baso # (Auto) Abs Immat Gran (auto) Absolute Neuts (auto) Absolute Nucleated RBC Nucleated RBC % Sodium Potassium Chloride Carbon Dioxide Anion Gap BUN Creatinine Estim Creat Clear Calc Estimated GFR Glucose POC Capillary Glucose 99 157 H Calcium Magnesium Total Bilirubin AST ALT Alkaline Phosphatase Total Protein Albumin Urine Pneumococcal Ag Cancelled 01/10/25 01/10/25 04:21 07:53 WBC 12.3 H RBC 4.54 Hgb 14.7 Hct 45.2 MCV 99.6 MCH 32.4 MCHC 32.5 RDW 13.2 Plt Count 262 MPV 10.9 H Immature Gran % (Auto) 2.2 H Neut % (Auto) 65.3 Lymph % (Auto) 23.0 [place] % (Auto) 6.5 Eos % (Auto) 2.5 Baso % (Auto) 0.5 Lymph # (Auto) 2.82 [place] # (Auto) 0.8 H Eos # (Auto) 0.3 Baso # (Auto) 0.1 Abs Immat Gran (auto) 0.27 H Absolute Neuts (auto) 8.0 H Absolute Nucleated RBC 0.000 Nucleated RBC % 0.0 Sodium 136 L Potassium 3.9 Chloride 100 Carbon Dioxide 32 H Anion Gap 4 BUN 18 H Creatinine 0.61 L Estim Creat Clear Calc 99 Estimated GFR > 60 Glucose 96 POC Capillary Glucose 108 H Calcium 8.9 Magnesium 2.2 Total Bilirubin 0.6 AST 38 H ALT 44 H Alkaline Phosphatase 76 Total Protein 6.8 Albumin 3.6 Urine Pneumococcal Ag
--- NOTE | 2025-01-10 12:33 | P.PNGS_ITS ---
Progress Note: A&P Assessment and Plan (1) Recurrent ventral hernia with incarceration: Code(s): K43.0 - Incisional hernia with obstruction, without gangrene Status: Acute Assessment and Plan: Pod 7 status post robotic assisted laparoscopic extended total extraperitoneal incarcerated recurrent incisional hernia repair with mesh and bilateral myofascial release. Patient presented to the ED on 01/05, 2 days after surgery, with complaints of shortness of breath and cough. * Patient localizes most of pain to periumbilical/epigastric region. Incisions are clean and dry with no signs of infection. CTA from Friday demonstrated periumbilical fluid collection likely a seroma. * Continue abdominal binder and splinting abdomen with coughing. * Oxycodone and tylenol for pain * WBC 12.3. Continue antibiotics. (2) Acute UTI: Code(s): N39.0 - Urinary tract infection, site not specified Status: Acute Assessment and Plan: Continue Augmentin and doxycycline. (3) Acute respiratory failure with hypoxia: Code(s): J96.01 - Acute respiratory failure with hypoxia Status: Acute Assessment and Plan: Currently on room air satting in high 90s. Pulmonology on board. States that she is ready to be discharged from a pulmonary perspective. They signed off today. Plan Discussed patient's case and plan of care with Dr. Goldberg. Subjective Subjective Date/Time Seen: 01/10/25 12:33 Patient reports: no new complaints, pain is less, no flatus and no bowel movement Interval history: Patient is doing well today. Walking around room. She states that she is still having some abdominal pain, but believes that most of this is due to constipation. After Milk of Magnesia was given on Friday, she states that she had a small mucous-like bowel movement, but nothing substantial. Drank whole bottle of mag citrate this morning. Exam Const: General: comfortable and no acute distress GI: Inspection: distended GI Palp: Yes Soft to palpation and Yes Tenderness to palpation present (GI) (Epigastric/periumbilical.) Other: Incisions are clean and dry with glue intact. No surrounding redness or irritation. Objective Data Vital Signs Vital Signs: Vital Signs - 24 hr 01/09/25 16:00 01/09/25 16:26 01/09/25 19:41 Temperature 96.9 F L 98.2 F Pulse Rate 69 68 73 Respiratory Rate 16 20 17 Blood Pressure 105/60 125/61 Pulse Oximetry 97 95 Oxygen Delivery 01/09/25 20:00 01/09/25 20:25 01/09/25 20:35 Temperature Pulse Rate 93 93 Respiratory Rate 18 18 Blood Pressure Pulse Oximetry Oxygen Delivery Room Air 01/09/25 21:13 01/09/25 23:30 01/09/25 23:34 Temperature Pulse Rate 62 93 Respiratory Rate 18 Blood Pressure Pulse Oximetry 92 94 Oxygen Delivery Room Air CPAP 01/09/25 23:38 01/09/25 23:38 01/10/25 02:15 Temperature 98.0 F Pulse Rate 93 62 Respiratory Rate 18 18 Blood Pressure 117/62 Pulse Oximetry 94 Oxygen Delivery CPAP 01/10/25 04:12 01/10/25 04:12 01/10/25 04:19 Temperature Pulse Rate 93 93 Respiratory Rate 18 18 Blood Pressure Pulse Oximetry Oxygen Delivery CPAP 01/10/25 04:35 01/10/25 08:00 01/10/25 08:06 Temperature 97.8 F Pulse Rate 62 62 Respiratory Rate 17 18 Blood Pressure 114/56 L Pulse Oximetry 94 Oxygen Delivery Room Air 01/10/25 08:14 01/10/25 08:16 01/10/25 08:33 Temperature Pulse Rate 62 69 70 Respiratory Rate 18 18 Blood Pressure Pulse Oximetry 96 Oxygen Delivery Room Air Intake/Output Intake/Output: Intake & Output 01/07/25 01/08/25 01/09/25 01/10/25 23:59 23:59 23:59 23:59 Intake Total 1320 1960 1810 590 Balance 1320 1960 1810 590 Meds/Results Medications: Active Medications Generic Name Dose Route Start Last Admin Trade Name Freq PRN Reason Stop Dose Admin Acetaminophen 1,000 mg 01/05/25 19:47 01/09/25 21:56 Acetaminophen 500 Mg Tablet PO 1,000 mg Q6H PRN Administration Mild Pain (1-3) or Fever Albuterol/Ipratropium 3 ml 01/06/25 08:00 01/10/25 08:06 Ipratropium 0.5 Mg/Albuterol Sulfate 2.5 Mg Ampul.Neb 3 Ml INHALATION 3 ml Q4HRT KASH Administration Amoxicillin/Clavulanate Potassium 1 tablet 01/05/25 21:00 01/10/25 08:33 Amoxicillin/Clavulanate K 875-125 Mg Tab PO 1 tablet Q12HR KASH Administration Aspirin 81 mg 01/06/25 09:00 01/10/25 08:33 Aspirin 81 Mg Enteric Tablet PO 81 mg DAILY KASH Administration Benzonatate 100 mg 01/05/25 21:48 01/08/25 19:34 Benzonatate 100 Mg Capsule PO 100 mg BID PRN Administration Cough Cyclobenzaprine HCl 5 mg 01/05/25 21:50 01/09/25 21:24 Cyclobenzaprine Hcl 5 Mg Tablet PO 5 mg HS KASH Administration Dextrose 12.5 gm 01/05/25 21:55 Dextrose 50% 25 Gm/50 Ml Syringe IV PUSH PRN PRN Hypoglycemia Protocol Docusate Sodium 100 mg 01/05/25 22:40 01/10/25 08:33 Docusate Sodium 100 Mg Capsule PO 100 mg Q12HR KASH Administration Doxycycline Hyclate 100 mg 01/06/25 09:00 01/10/25 08:33 Doxycycline Hyclate 100 Mg Tablet PO 100 mg Q12HR KASH Administration Duloxetine HCl 60 mg 01/06/25 09:00 01/10/25 08:33 Duloxetine Hcl 60 Mg Capsule.Dr PO 60 mg DAILY KASH Administration Empagliflozin 10 mg 01/06/25 09:00 01/10/25 08:34 Empagliflozin 10 Mg Tablet PO 10 mg DAILY KASH Administration Enoxaparin Sodium 40 mg 01/06/25 09:00 01/10/25 08:46 Enoxaparin 40 Mg/0.4 Ml Syringe SUB-Q Not Given DAILY KASH Famotidine 40 mg 01/06/25 09:00 01/10/25 08:32 Famotidine 20 Mg Tablet PO 40 mg DAILY KASH Administration Fluticasone Propionate 1 spray 01/06/25 09:00 01/10/25 08:37 Fluticasone Propionate 0.05% Na Spr 16 Gm Btl (*Bkc) NASAL 1 spray Q12HR KASH Administration Fluticasone/Umeclidinium/Vilanterol 1 puff 01/06/25 08:00 01/10/25 08:16 Fluticasone/Umeclidin/Vilanter 200-62.5-25 Mcg Ellipta INHALATION 1 puff DAILYRT KASH Administration Glucagon 1 mg 01/05/25 21:55 Glucagon For Inj 1 Mg Vial IM PRN PRN Hypoglycemia Protocol Glucose 15 gm 01/05/25 21:55 Glucose Oral Gel 15 Gm Of Glucse In 37.5 Gm Tube PO PRN PRN Hypoglycemia Protocol Guaifenesin 1,200 mg 01/07/25 09:00 01/10/25 08:34 Guaifenesin 12 Hr 600 Mg Tabcr PO 1,200 mg Q12HR KASH Administration Dextrose 1,000 mls @ 100 mls/hr 01/05/25 21:55 Dextrose 5% 1,000 Ml IVPB PRN PRN Hypoglycemia Protocol Insulin Aspart 4 - 8 units 01/06/25 08:00 01/10/25 12:08 Insulin Aspart (*Bkc) 100 Units/Ml SUB-Q Not Given TIDWM KASH Protocol Loratadine 10 mg 01/06/25 09:00 01/10/25 08:34 Loratadine 10 Mg Tablet PO 10 mg QAM KASH Administration Losartan Potassium 100 mg 01/06/25 09:00 01/10/25 08:33 Losartan Potassium 100 Mg Tablet PO 100 mg DAILY KASH Administration Metoprolol Succinate 50 mg 01/06/25 09:00 01/10/25 08:33 Metoprolol Succinate Ext Rel 50 Mg Tabcr PO 50 mg QAM KASH Administration Montelukast Sodium 10 mg 01/05/25 21:55 01/09/25 21:24 Montelukast Sodium 10 Mg Tablet PO 10 mg HS KASH Administration Oxycodone HCl 10 mg 01/05/25 21:48 01/09/25 05:42 Oxycodone Hcl (*Crx) 5 Mg Tab Ir PO 10 mg Q4H PRN Administration Pain Rated 7-10 Oxycodone HCl 5 mg 01/05/25 22:36 01/10/25 03:30 Oxycodone Hcl (*Crx) 5 Mg Tab Ir PO 5 mg Q4H PRN Administration Pain Rated 4-6 Polyethylene Glycol 17 gm 01/06/25 09:00 01/10/25 08:47 Polyethylene Glycol 3350 17 Gm Powd.Pack PO Not Given QAM KASH Prednisone 40 mg 01/09/25 08:00 01/10/25 08:34 Prednisone 20 Mg Tablet PO 40 mg DAILY@0800 KASH Administration Rosuvastatin Calcium 5 mg 01/06/25 09:00 01/10/25 08:33 Rosuvastatin 5 Mg Tablet PO 5 mg DAILY KASH Administration Sitagliptin Phosphate 25 mg 01/06/25 09:00 01/10/25 08:33 Sitagliptin Phosphate 25 Mg Tablet PO 25 mg QAM KASH Administration Vitamin B Complex 2 cap 01/06/25 09:00 01/10/25 08:33 Vitamin B Complex Capsule PO 2 cap DAILY KASH Administration Radiology Results: ITS Impressions Chest X-Ray 01/05/25 15:25 Impression: 1: Bibasilar infiltrates may represent pneumonia and/or atelectasis. Chest/Abdomen/Pelvis CTA 01/07/25 07:34 IMPRESSION: CHEST- 1. No PE. 2. Bibasilar aspiration and atelectasis. ABDOMEN/PELVIS- 1. Periumbilical fluid collection subcutaneous soft tissues; seroma and/or abscess. 2. Upper abdominal wall subcutaneous emphysema consistent with postoperative change. 3. No acute abnormality within abdomen and pelvis. Labs Labs: Laboratory Results - last 24 hr 01/06/25 01/09/25 01/09/25 01:09 12:41 17:05 WBC RBC Hgb Hct MCV MCH MCHC RDW Plt Count MPV Immature Gran % (Auto) Neut % (Auto) Lymph % (Auto) [place] % (Auto) Eos % (Auto) Baso % (Auto) Lymph # (Auto) [place] # (Auto) Eos # (Auto) Baso # (Auto) Abs Immat Gran (auto) Absolute Neuts (auto) Absolute Nucleated RBC Nucleated RBC % Sodium Potassium Chloride Carbon Dioxide Anion Gap BUN Creatinine Estim Creat Clear Calc Estimated GFR Glucose POC Capillary Glucose 99 157 H Calcium Magnesium Total Bilirubin AST ALT Alkaline Phosphatase Total Protein Albumin Urine Pneumococcal Ag Cancelled 01/10/25 01/10/25 01/10/25 04:21 07:53 11:44 WBC 12.3 H RBC 4.54 Hgb 14.7 Hct 45.2 MCV 99.6 MCH 32.4 MCHC 32.5 RDW 13.2 Plt Count 262 MPV 10.9 H Immature Gran % (Auto) 2.2 H Neut % (Auto) 65.3 Lymph % (Auto) 23.0 [place] % (Auto) 6.5 Eos % (Auto) 2.5 Baso % (Auto) 0.5 Lymph # (Auto) 2.82 [place] # (Auto) 0.8 H Eos # (Auto) 0.3 Baso # (Auto) 0.1 Abs Immat Gran (auto) 0.27 H Absolute Neuts (auto) 8.0 H Absolute Nucleated RBC 0.000 Nucleated RBC % 0.0 Sodium 136 L Potassium 3.9 Chloride 100 Carbon Dioxide 32 H Anion Gap 4 BUN 18 H Creatinine 0.61 L Estim Creat Clear Calc 99 Estimated GFR > 60 Glucose 96 POC Capillary Glucose 108 H 115 H Calcium 8.9 Magnesium 2.2 Total Bilirubin 0.6 AST 38 H ALT 44 H Alkaline Phosphatase 76 Total Protein 6.8 Albumin 3.6 Urine Pneumococcal Ag
--- NOTE | 2025-01-10 13:41 | PM.IMPN ---
Progress Note: A&P Assessment and Plan (1) Essential (primary) hypertension: Code(s): I10 - Essential (primary) hypertension Status: Acute (2) DM type 2 (diabetes mellitus, type 2): Qualifiers: Diabetes mellitus fci insulin use: without fci use Diabetes mellitus complication status: without complication Qualified Code(s): E11.9 - Type 2 diabetes mellitus without complications Code(s): E11.9 - Type 2 diabetes mellitus without complications Status: Acute (3) Gastro-esophageal reflux disease without esophagitis: Code(s): K21.9 - Gastro-esophageal reflux disease without esophagitis Status: Acute (4) Periumbilical hernia: Code(s): K42.9 - Umbilical hernia without obstruction or gangrene Status: Acute Plan 59 year old female patient with history of COPD and heavy smoking who is admitted to the hospital for hypoxia with exertion, exacerbation of COPD and bibasilar pneumonia. Patient had ventral hernia repair completed on 01/03 and she had to remain in PACU 3 hours longer than anticipated due to hypoxia. Patient reports significant recurrent bronchitis since childhood and has a documented history of COPD.After admission patient more wheezy and short of breath. IV magnesium, IV Solu-Medrol and Duoneb given with some improvement. Duoneb ordered q4h PRN. CPAP utilized overnight with bleed in oxygen to keep oxygen 88-93%. Patient also reports she is coughing up copious thick multi colored secretions. 1. Acute respiratory distress: COPD currently on room air 6 minute walk prior to discharge Pulmonary following As per Pulmonary, patient will be discharged on following Prednisone 40 mg p.o. q.day x4 days. Augmentin 875-125 p.o. b.i.d. x5 days Doxycycline 100 mg p.o. b.i.d. x5 days Trelegy 200-60 2.5-25 at 1 puff q.day Albuterol inhaler 2 puffs q.4 hours p.r.n. shortness of breath or wheezing Albuterol nebulizer 2.5 mg q.4 hours p.r.n. shortness of breath or wheezing Follow-up in the Pulmonary Clinic in 4 weeks. 2. Recurrent ventral hernia with incarceration: Status post robotic assisted laparoscopic extended total extraperitoneal incarcerated recurrent incisional hernia repair with mesh and bilateral myofascial release. Patient presented to the ED on 01/05, 2 days after surgery, with complaints of shortness of breath and cough. Surgery following Incisions are clean dry CTA from Friday demonstrated periumbilical fluid collection like seroma Continue with abdominal binder Continue with oxycodone and Tylenol Continue with Augmentin, doxycycline 3. Constipation: Has received Dulcolax suppository, MiraLax, senna without any effect Give Mag citrate today Will obtain x-ray KUB Will try enema today 4. DVT prophylaxis: Lovenox 5. Code status: Full 6. Disposition: Pending improvement in constipation Time Spent With Patient Time: 38 minutes Subjective Date/time seen: 01/10/25 13:41 Interval history: Complains of constipation Review of Systems Review of Systems: All systems reviewed & are unremarkable except as noted in HPI and below Exam Narrative: HEENT: PERRL, sclerae nonicteric, pharyngeal mucosa pink and intact NECK: No JVD, adenopathy, or thyromegaly CHEST: Normal, decreased breath sound bilaterally HEART: NL S1/S2, regular, 2/6 RUSB LADAN w/o radiation ABDOMEN: BS+, soft, incisional tenderness EXTREMITIES: 1+ pretibial pitting edema bilaterally NEUROLOGIC: CN intact and symmetric to inspection MUSCULOSKELETAL: Tone and strength symmetric PSYCH: Alert. Oriented to person, place, and time Objective Data Vital Signs Vital Signs: Vital Signs - 24 hr 01/09/25 16:00 01/09/25 16:26 01/09/25 19:41 Temperature 96.9 F L 98.2 F Pulse Rate 69 68 73 Respiratory Rate 16 20 17 Blood Pressure 105/60 125/61 Pulse Oximetry 97 95 Oxygen Delivery 01/09/25 20:00 01/09/25 20:25 01/09/25 20:35 Temperature Pulse Rate 93 93 Respiratory Rate 18 18 Blood Pressure Pulse Oximetry Oxygen Delivery Room Air 01/09/25 21:13 01/09/25 23:30 01/09/25 23:34 Temperature Pulse Rate 62 93 Respiratory Rate 18 Blood Pressure Pulse Oximetry 92 94 Oxygen Delivery Room Air CPAP 01/09/25 23:38 01/09/25 23:38 01/10/25 02:15 Temperature 98.0 F Pulse Rate 93 62 Respiratory Rate 18 18 Blood Pressure 117/62 Pulse Oximetry 94 Oxygen Delivery CPAP 01/10/25 04:12 01/10/25 04:12 01/10/25 04:19 Temperature Pulse Rate 93 93 Respiratory Rate 18 18 Blood Pressure Pulse Oximetry Oxygen Delivery CPAP 01/10/25 04:35 01/10/25 08:00 01/10/25 08:06 Temperature 97.8 F Pulse Rate 62 62 Respiratory Rate 17 18 Blood Pressure 114/56 L Pulse Oximetry 94 Oxygen Delivery Room Air 01/10/25 08:14 01/10/25 08:16 01/10/25 08:33 Temperature Pulse Rate 62 69 70 Respiratory Rate 18 18 Blood Pressure Pulse Oximetry 96 Oxygen Delivery Room Air 01/10/25 13:25 01/10/25 13:31 Temperature Pulse Rate 66 73 Respiratory Rate 18 18 Blood Pressure Pulse Oximetry Oxygen Delivery Intake/Output Intake/Output: Intake & Output 01/07/25 01/08/25 01/09/25 01/10/25 23:59 23:59 23:59 23:59 Intake Total 1320 1960 1810 590 Balance 1320 1960 1810 590 Meds/Results Medications: Active Medications Generic Name Dose Route Start Last Admin Trade Name Freq PRN Reason Stop Dose Admin Acetaminophen 1,000 mg 01/05/25 19:47 01/09/25 21:56 Acetaminophen 500 Mg Tablet PO 1,000 mg Q6H PRN Administration Mild Pain (1-3) or Fever Albuterol/Ipratropium 3 ml 01/06/25 08:00 01/10/25 13:25 Ipratropium 0.5 Mg/Albuterol Sulfate 2.5 Mg Ampul.Neb 3 Ml INHALATION 3 ml Q4HRT KASH Administration Amoxicillin/Clavulanate Potassium 1 tablet 01/05/25 21:00 01/10/25 08:33 Amoxicillin/Clavulanate K 875-125 Mg Tab PO 1 tablet Q12HR KASH Administration Aspirin 81 mg 01/06/25 09:00 01/10/25 08:33 Aspirin 81 Mg Enteric Tablet PO 81 mg DAILY KASH Administration Benzonatate 100 mg 01/05/25 21:48 01/08/25 19:34 Benzonatate 100 Mg Capsule PO 100 mg BID PRN Administration Cough Cyclobenzaprine HCl 5 mg 01/05/25 21:50 01/09/25 21:24 Cyclobenzaprine Hcl 5 Mg Tablet PO 5 mg HS KASH Administration Dextrose 12.5 gm 01/05/25 21:55 Dextrose 50% 25 Gm/50 Ml Syringe IV PUSH PRN PRN Hypoglycemia Protocol Docusate Sodium 100 mg 01/05/25 22:40 01/10/25 08:33 Docusate Sodium 100 Mg Capsule PO 100 mg Q12HR KASH Administration Doxycycline Hyclate 100 mg 01/06/25 09:00 01/10/25 08:33 Doxycycline Hyclate 100 Mg Tablet PO 100 mg Q12HR KASH Administration Duloxetine HCl 60 mg 01/06/25 09:00 01/10/25 08:33 Duloxetine Hcl 60 Mg Capsule.Dr PO 60 mg DAILY KASH Administration Empagliflozin 10 mg 01/06/25 09:00 01/10/25 08:34 Empagliflozin 10 Mg Tablet PO 10 mg DAILY KASH Administration Enoxaparin Sodium 40 mg 01/06/25 09:00 01/10/25 08:46 Enoxaparin 40 Mg/0.4 Ml Syringe SUB-Q Not Given DAILY KASH Famotidine 40 mg 01/06/25 09:00 01/10/25 08:32 Famotidine 20 Mg Tablet PO 40 mg DAILY KASH Administration Fluticasone Propionate 1 spray 01/06/25 09:00 01/10/25 08:37 Fluticasone Propionate 0.05% Na Spr 16 Gm Btl (*Bkc) NASAL 1 spray Q12HR KASH Administration Fluticasone/Umeclidinium/Vilanterol 1 puff 01/06/25 08:00 01/10/25 08:16 Fluticasone/Umeclidin/Vilanter 200-62.5-25 Mcg Ellipta INHALATION 1 puff DAILYRT KASH Administration Glucagon 1 mg 01/05/25 21:55 Glucagon For Inj 1 Mg Vial IM PRN PRN Hypoglycemia Protocol Glucose 15 gm 01/05/25 21:55 Glucose Oral Gel 15 Gm Of Glucse In 37.5 Gm Tube PO PRN PRN Hypoglycemia Protocol Guaifenesin 1,200 mg 01/07/25 09:00 01/10/25 08:34 Guaifenesin 12 Hr 600 Mg Tabcr PO 1,200 mg Q12HR KASH Administration Dextrose 1,000 mls @ 100 mls/hr 01/05/25 21:55 Dextrose 5% 1,000 Ml IVPB PRN PRN Hypoglycemia Protocol Insulin Aspart 4 - 8 units 01/06/25 08:00 01/10/25 12:08 Insulin Aspart (*Bkc) 100 Units/Ml SUB-Q Not Given TIDWM [facility] Protocol Loratadine 10 mg 01/06/25 09:00 01/10/25 08:34 Loratadine 10 Mg Tablet PO 10 mg QAM [facility] Administration Losartan Potassium 100 mg 01/06/25 09:00 01/10/25 08:33 Losartan Potassium 100 Mg Tablet PO 100 mg DAILY KASH Administration Metoprolol Succinate 50 mg 01/06/25 09:00 01/10/25 08:33 Metoprolol Succinate Ext Rel 50 Mg Tabcr PO 50 mg QAM [facility] Administration Montelukast Sodium 10 mg 01/05/25 21:55 01/09/25 21:24 Montelukast Sodium 10 Mg Tablet PO 10 mg HS [facility] Administration Oxycodone HCl 10 mg 01/05/25 21:48 01/09/25 05:42 Oxycodone Hcl (*Crx) 5 Mg Tab Ir PO 10 mg Q4H PRN Administration Pain Rated 7-10 Oxycodone HCl 5 mg 01/05/25 22:36 01/10/25 03:30 Oxycodone Hcl (*Crx) 5 Mg Tab Ir PO 5 mg Q4H PRN Administration Pain Rated 4-6 Polyethylene Glycol 17 gm 01/06/25 09:00 01/10/25 08:47 Polyethylene Glycol 3350 17 Gm Powd.Pack PO Not Given QAM [facility] Prednisone 40 mg 01/09/25 08:00 01/10/25 08:34 Prednisone 20 Mg Tablet PO 40 mg DAILY@0800 [facility] Administration Rosuvastatin Calcium 5 mg 01/06/25 09:00 01/10/25 08:33 Rosuvastatin 5 Mg Tablet PO 5 mg DAILY [facility] Administration Sitagliptin Phosphate 25 mg 01/06/25 09:00 01/10/25 08:33 Sitagliptin Phosphate 25 Mg Tablet PO 25 mg QAM [facility] Administration Vitamin B Complex 2 cap 01/06/25 09:00 01/10/25 08:33 Vitamin B Complex Capsule PO 2 cap DAILY [facility] Administration Radiology Results: ITS Impressions Chest X-Ray 01/05/25 15:25 Impression: 1: Bibasilar infiltrates may represent pneumonia and/or atelectasis. Chest/Abdomen/Pelvis CTA 01/07/25 07:34 IMPRESSION: CHEST- 1. No PE. 2. Bibasilar aspiration and atelectasis. ABDOMEN/PELVIS- 1. Periumbilical fluid collection subcutaneous soft tissues; seroma and/or abscess. 2. Upper abdominal wall subcutaneous emphysema consistent with postoperative change. 3. No acute abnormality within abdomen and pelvis. Labs Labs: Laboratory Results - last 24 hr 01/06/25 01/09/25 01/10/25 01:09 17:05 04:21 WBC 12.3 H RBC 4.54 Hgb 14.7 Hct 45.2 MCV 99.6 MCH 32.4 MCHC 32.5 RDW 13.2 Plt Count 262 MPV 10.9 H Immature Gran % (Auto) 2.2 H Neut % (Auto) 65.3 Lymph % (Auto) 23.0 [place] % (Auto) 6.5 Eos % (Auto) 2.5 Baso % (Auto) 0.5 Lymph # (Auto) 2.82 [place] # (Auto) 0.8 H Eos # (Auto) 0.3 Baso # (Auto) 0.1 Abs Immat Gran (auto) 0.27 H Absolute Neuts (auto) 8.0 H Absolute Nucleated RBC 0.000 Nucleated RBC % 0.0 Sodium 136 L Potassium 3.9 Chloride 100 Carbon Dioxide 32 H Anion Gap 4 BUN 18 H Creatinine 0.61 L Estim Creat Clear Calc 99 Estimated GFR > 60 Glucose 96 POC Capillary Glucose 157 H Calcium 8.9 Magnesium 2.2 Total Bilirubin 0.6 AST 38 H ALT 44 H Alkaline Phosphatase 76 Total Protein 6.8 Albumin 3.6 Urine Pneumococcal Ag Cancelled 01/10/25 01/10/25 07:53 11:44 WBC RBC Hgb Hct MCV MCH MCHC RDW Plt Count MPV Immature Gran % (Auto) Neut % (Auto) Lymph % (Auto) [place] % (Auto) Eos % (Auto) Baso % (Auto) Lymph # (Auto) [place] # (Auto) Eos # (Auto) Baso # (Auto) Abs Immat Gran (auto) Absolute Neuts (auto) Absolute Nucleated RBC Nucleated RBC % Sodium Potassium Chloride Carbon Dioxide Anion Gap BUN Creatinine Estim Creat Clear Calc Estimated GFR Glucose POC Capillary Glucose 108 H 115 H Calcium Magnesium Total Bilirubin AST ALT Alkaline Phosphatase Total Protein Albumin Urine Pneumococcal Ag Quality VTE Prophylaxis VTE prophylaxis: pharmacologic ordered
--- NOTE | 2025-01-10 13:59 | HOMEO2EVAL ---
Evaluation was performed at [facility] Home Oxygen Evaluation RC: Home Oxygen (O2) Evaluation Start: 01/10/25 11:36 Freq: ONCE Status: Active Protocol: RPE Activity Type Activity Date Activity User E-sign Co-sign Detail Recorded Client Recorded Date Recorded By Document 01/10/25 13:42 KRM [id number] 01/10/25 13:59 KRM Document 01/10/25 13:45 KRM [id number] 01/10/25 13:59 KRM 01/10/25 01/10/25 13:42 13:45 Home O2 Evaluation [Oxygen] -Test Phase Resting Exercise -Oxygen Delivery Room Air Room Air [Pulse Oximetry] -Pulse Oximetry (90-100 %) 95 95 [Pulse Rate] -Pulse Rate (60-100 beats/min) 76 88 [Evaluation] -Activity Tolerance Good [Exercise] -Ambulation Distance (feet) 200 -Ambulation Distance (meters) 60.95 [Charges] -Evaluation Charges O2 Evaluation by Pulmonary
--- NOTE | 2025-01-10 15:25 | P.DS_ITS ---
DS: Admitting Diagnosis Discharge Date 01/10/25 Admitting Diagnosis Acute respiratory distress DS: Discharge Diagnosis Discharge Diagnosis (1) Essential (primary) hypertension: Code(s): I10 - Essential (primary) hypertension Status: Acute (2) Incisional hernia without obstruction or gangrene: Code(s): K43.2 - Incisional hernia without obstruction or gangrene Status: Acute DS: Summary Hospital Course Reason for hospitalization: Acute respiratory distress Hospital Course: 59 year old female patient with history of COPD and heavy smoking who is admitted to the hospital for hypoxia with exertion, exacerbation of COPD and bibasilar pneumonia. Patient had ventral hernia repair completed on 01/03 and she had to remain in PACU 3 hours longer than anticipated due to hypoxia. Patient reports significant recurrent bronchitis since childhood and has a documented history of COPD.After admission patient more wheezy and short of breath. IV magnesium, IV Solu-Medrol and Duoneb given with some improvement. Duoneb ordered q4h PRN. CPAP utilized overnight with bleed in oxygen to keep oxygen 88-93%. Patient also reports she is coughing up copious thick multi colored secretions. Pulmonary was consulted, treated with O2 support, steroid, antibiotic, bronchodilators. Symptoms improved. Currently on room air, discharged on Augmentin, doxycycline along with bronchodilators, outpatient follow-up with Pulmonary Clinic in 4 weeks. Patient with history of recurrent ventral hernia with incarceration, status post robotic assisted laparoscopic extended total extraperitoneal incarcerated recurrent incisional hernia repair with mesh and bilateral myofascial release. Surgery was following. Advised to continue with abdominal binder, pain control. Treated for constipation while in the hospital. Patient was discharged home in stable condition. Status at Discharge Overall status at discharge: patient is progressing back to baseline Time Spent with Patient Time attestation: Total time spent providing and/or coordinating discharge services: 33 minutes Exam Narrative: HEENT: PERRL, sclerae nonicteric, pharyngeal mucosa pink and intact NECK: No JVD, adenopathy, or thyromegaly CHEST: Normal, decreased breath sound bilaterally HEART: NL S1/S2, regular, 2/6 RUSB LADAN w/o radiation ABDOMEN: BS+, soft, incisional tenderness EXTREMITIES: 1+ pretibial pitting edema bilaterally NEUROLOGIC: CN intact and symmetric to inspection MUSCULOSKELETAL: Tone and strength symmetric PSYCH: Alert. Oriented to person, place, and time DS: Data Data Completed and Pending Labs on day of discharge: Labs from last 24 hours 01/10/25 01/10/25 01/10/25 11:44 07:53 04:21 WBC 12.3 H RBC 4.54 Hgb 14.7 Hct 45.2 MCV 99.6 MCH 32.4 MCHC 32.5 RDW 13.2 Plt Count 262 MPV 10.9 H Immature Gran % (Auto) 2.2 H Neut % (Auto) 65.3 Lymph % (Auto) 23.0 [place] % (Auto) 6.5 Eos % (Auto) 2.5 Baso % (Auto) 0.5 Lymph # (Auto) 2.82 [place] # (Auto) 0.8 H Eos # (Auto) 0.3 Baso # (Auto) 0.1 Abs Immat Gran (auto) 0.27 H Absolute Neuts (auto) 8.0 H Absolute Nucleated RBC 0.000 Nucleated RBC % 0.0 Sodium 136 L Potassium 3.9 Chloride 100 Carbon Dioxide 32 H Anion Gap 4 BUN 18 H Creatinine 0.61 L Estim Creat Clear Calc 99 Estimated GFR > 60 Glucose 96 POC Capillary Glucose 115 H 108 H Calcium 8.9 Magnesium 2.2 Total Bilirubin 0.6 AST 38 H ALT 44 H Alkaline Phosphatase 76 Total Protein 6.8 Albumin 3.6 Urine Pneumococcal Ag 01/09/25 01/06/25 17:05 01:09 WBC RBC Hgb Hct MCV MCH MCHC RDW Plt Count MPV Immature Gran % (Auto) Neut % (Auto) Lymph % (Auto) [place] % (Auto) Eos % (Auto) Baso % (Auto) Lymph # (Auto) [place] # (Auto) Eos # (Auto) Baso # (Auto) Abs Immat Gran (auto) Absolute Neuts (auto) Absolute Nucleated RBC Nucleated RBC % Sodium Potassium Chloride Carbon Dioxide Anion Gap BUN Creatinine Estim Creat Clear Calc Estimated GFR Glucose POC Capillary Glucose 157 H Calcium Magnesium Total Bilirubin AST ALT Alkaline Phosphatase Total Protein Albumin Urine Pneumococcal Ag Cancelled Discharge Plan Discharge Attending physician on discharge: Arabella Olivares Consulting providers: Epi Goldberg; Betzy Hernandez; Leonor Lopez Discharging Clinician: Arabella Olivares Anticipated Discharge Date/Time: 01/10/25 15:11 Patient Disposition: Home Activity: as tolerated Diet: as tolerated and regular Wound Care Instructions: other - see discharge instructions Patient Instructions: Antibiotic Form, How to Stop Smoking (DC) Patient Language: [place] Island[place] Stand Alone Forms: General Discharge Information Follow-up/Referrals: Javier Avila MD [Physician, Pulmonology] - 4 Weeks Epi Goldberg MD [Physician, General Surgery] - 2 Weeks Discharge Medications: New prednisone 20 mg Tablet 40 mg PO DAILY@0800 4 Days Qty: 8 0RF amoxicillin-pot clavulanate 875-125 mg tablet 1 tablet PO Q12H Qty: 10 0RF doxycycline hyclate 100 mg Tablet 100 mg PO Q12HR 5 Days Qty: 10 0RF Jardiance 10 mg Tablet 10 mg PO DAILY Qty: 30 0RF Januvia 25 mg tablet 25 mg PO QAM Qty: 30 0RF Januvia 25 mg tablet 25 mg PO QAM Qty: 30 0RF Continued cholecalciferol (vitamin D3) 50 mcg (2,000 unit) capsule 50 mcg PO DAILY (DME) Blood Glucose Test Strip See Rx Instructions .ROUTE .MEDSUPPLY Qty: 100 5RF Rx Instructions: For twice daily blood glucose checks. (DME) blood-glucose meter [Blood Glucose Monitoring] Kit See Rx Instructions .ROUTE .MEDSUPPLY Qty: 1 0RF Rx Instructions: For twice daily blood glucose checks. fexofenadine [Bonita Allergy] 180 mg tablet 180 mg PO Q24H (DME) lancets 32 gauge [facility] See Rx Instructions .ROUTE .MEDSUPPLY Qty: 100 5RF Rx Instructions: For twice daily blood glucose checks. Please fill for whatever is covered by patients INS. Thank you! acetaminophen [Tylenol Extra Strength] 500 mg tablet 500 mg PO DIRECTED PRN (Reason: Pain) mecobalamin (vitamin B12) 1,000 mcg tablet,disintegrating 1,000 mcg sublingual DAILY Rx Instructions: place tablet under tongue and allow to dissolve for at least30 secs before swallowing vitamin B complex [B Complex-Vitamin B12] Tablet 2 tablet PO DAILY (DME) blood-glucose meter [Accu-Chek Zenia Plus Meter] [facility] MISCELLANEOUS cyclobenzaprine 10 mg tablet See Rx Instructions .ROUTE .COMPLEX Rx Instructions: TAKE 0.5 TABLET BY MOUTH EVERYDAY AT BEDTIME magnesium oxide 400 mg magnesium capsule 400 mg PO DAILY duloxetine 60 mg capsule,delayed release(DR/EC) 60 mg PO DAILY Trelegy Ellipta 200-62.5-25 mcg blister with device 1 inh inhalation DAILY oxycodone 5 mg tablet 10 mg PO Q4H PRN (Reason: pain) aspirin [Adult Aspirin Regimen] 81 mg tablet,delayed release (DR/EC) 81 mg PO DAILY icosapent ethyl [Vascepa] 1 gram capsule 2 g PO BID Qty: 360 2RF fluticasone propionate 50 mcg/actuation spray,suspension See Rx Instructions .ROUTE .COMPLEX Qty: 16 3RF Dose Instruction: USE 1 SPRAY INTRANASALLY TWICE A DAY ADMINISTER INTO EACH NOSTRIL Rx Instructions: USE 1 SPRAY INTRANASALLY TWICE A DAY ADMINISTER INTO EACH NOSTRIL tramadol 50 mg tablet 50 mg PO Q4-6H PRN (Reason: pain) Qty: 90 0RF Patient Comments: HS metoprolol succinate 50 mg tablet extended release 24 hr See Rx Instructions .ROUTE .COMPLEX Qty: 90 1RF Dose Instruction: TAKE 1 TABLET BY MOUTH EVERY DAY Rx Instructions: TAKE 1 TABLET BY MOUTH EVERY DAY Repatha SureClick 140 mg/mL pen injector 140 mg subcut .q2w Qty: 6 0RF Patient Comments: due thurs Rx Instructions: Inject 1ml once every 2 weeks. losartan 100 mg tablet See Rx Instructions .ROUTE .COMPLEX Qty: 90 1RF Dose Instruction: TAKE 1 TABLET BY MOUTH EVERY DAY Rx Instructions: TAKE 1 TABLET BY MOUTH EVERY DAY Glyxambi 10-5 mg tablet See Rx Instructions .ROUTE .COMPLEX Qty: 90 1RF Dose Instruction: TAKE 1 TABLET BY MOUTH EVERY DAY Rx Instructions: TAKE 1 TABLET BY MOUTH EVERY DAY montelukast 10 mg tablet See Rx Instructions .ROUTE .COMPLEX Qty: 90 1RF Dose Instruction: TAKE 1 TABLET BY MOUTH EVERY DAY Rx Instructions: TAKE 1 TABLET BY MOUTH EVERY DAY famotidine 40 mg tablet See Rx Instructions .ROUTE .COMPLEX Qty: 90 1RF Dose Instruction: TAKE 1 TABLET BY MOUTH EVERY DAY Rx Instructions: TAKE 1 TABLET BY MOUTH EVERY DAY benzonatate 100 mg capsule 100 mg PO BID PRN (Reason: cough) Qty: 20 1RF rosuvastatin 10 mg tablet 5 mg PO DAILY Qty: 90 1RF Discontinued hydrochlorothiazide 25 mg tablet 25 mg PO DAILY PRN (Reason: Swelling) Qty: 30 0RF Patient Comments: Haven't used in 1 year. Date of admission: 01/06/25 10:29 Primary Care Provider: Jaime Cleaning Admitting Provider: Ciara Doherty Attending physician on admission: Ciara Doherty Condition: Stable
[2025-01-10] MEDS: FLUCONAZOLE 100 MG TABLET PO (16:37)
--- NOTE | 2025-01-10 18:51 | PC.NURSE ---
call from pt requesting refill on nebulizer medication PRN, call to Dr Olivares and she states she will enter the RX tomorrow morning and transmit script
== END 2025-01-10 16:53 | disposition home or self-care (01) | DRG 205 ==
LOC: ANHED 17:52 → ANH3MEDSUR 19:12 → ANH2MED 20:17
PROVIDERS: Nurse Practitioner; Nurse Practitioner Acute Care; Admitting Provider General Practice; Emergency Provider Student in an Organized Health Care Education/Training Program; PCP Internal Medicine; Visit Provider Internal Medicine
DX: J95.89 Other postprocedural complications and disorders of respiratory system, not elsewhere classified (principal); J18.9 Pneumonia, unspecified organism; J95.821 Acute postprocedural respiratory failure; J44.1 Chronic obstructive pulmonary disease with (acute) exacerbation; N39.0 Urinary tract infection, site not specified; J44.0 Chronic obstructive pulmonary disease with (acute) lower respiratory infection; M96.843 Postprocedural seroma of a musculoskeletal structure following other procedure; I10 Essential (primary) hypertension; I73.00 Raynaud's syndrome without gangrene; I25.10 Atherosclerotic heart disease of native coronary artery without angina pectoris; E53.8 Deficiency of other specified B group vitamins; E11.42 Type 2 diabetes mellitus with diabetic polyneuropathy; E78.5 Hyperlipidemia, unspecified; K52.9 Noninfective gastroenteritis and colitis, unspecified; M47.816 Spondylosis without myelopathy or radiculopathy, lumbar region; M47.812 Spondylosis without myelopathy or radiculopathy, cervical region; G47.33 Obstructive sleep apnea (adult) (pediatric); F32.A Depression, unspecified; F17.210 Nicotine dependence, cigarettes, uncomplicated; F41.9 Anxiety disorder, unspecified; Z20.822 Contact with and (suspected) exposure to COVID-19; Z79.82 Long term (current) use of aspirin; Z79.899 Other long term (current) drug therapy; Z92.82 Status post administration of tPA (rtPA) in a different facility within the last 24 hours prior to admission to current facility
CPT/HCPCS: 36415; 36600; 71046; 71275; 74018; 74177; 80053; 81001; 82805; 82948; 83036; 83735; 83880; 84145; 85018; 85025; 85652; 86140; 87070; 87086; 87186; 87205; 87449; 87633; 87637; 87641; 87899; 93005; 94618; 94640; 96365; 96375; 96376; 97165; 99285; A9270; G0378; J1200; J1650; J2270; J2919; J3475; J7512; Q9967

== ENCOUNTER 2025-01-20 08:57 | Outpatient (CLI) | payer BC, SELFPAY ==
--- OUTSIDE RECORDS SUMMARY | 2025-01-20 09:21 | XMS_ITS | Clinical Summary ---
Author Organization [facility] Administrative Offices Address [address] [place] [address] Care Team Providers Care C T Tech Name Role Phone Jt Zamora MD Primary Care Provider [phone] Social History Tobacco Use Types Packs/Day Years Used Date Smoking Tobacco: Never Assessed Comments Unknown Sex and Gender Information Value Date Recorded Sex Assigned at Not on file Legal Sex Female 5:32 AM [employer] Gender Identity Not on file Sexual Orientation [...] patient's age to complete this topic Insurance [id number] [employer] PPO Care Teams C T Tech Relationship Specialty Start Date End Date Jt Zamora MD [address] [place] [id number] PCP - General Family Practice 12/17/11
--- OUTSIDE RECORDS SUMMARY | 2025-01-20 09:21 | XMS_ITS | Clinical Summary ---
Author Organization [facility] [place] [address] Address [address] [place] [id number] Care Team Providers Care Director Geothermal Operations Name Role Phone Soham Arnold MD Unavailable [phone] Jeaneth Funez MD Unavailable [phone] Walt Shetty MD Unavailable [phone] Jaime Cleaning MD Primary Care Provider [phone] Allergies Active Allergy Reactions Criticality Noted Date [...] hypertension 09/16/2023 Coronary artery disease invo lving [place] coronary artery of [place] heart without angina pectoris 09/16/2023 Morbid obesity [...] symptoms. Encouraged her to return to her post secondary professional for additional review of her facial redness [...] history of psoriasis on her elbows. Saw post secondary professional in the past who provided topical agents with resolution of skin rashes. 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 For additional information please refer to http://Prepair.Cirrascale/faq/YBH12b2 (This link is being provided for informational/ educational purposes only.) 12/06/2021 11:2 6 AM CDT 12/06/2021 11:28 AM CDT us Walt Shetty MD LAB MICROBIOLOGY - GENERAL ORD ERABLES Final Result [facility] [id number] [phone] from Last 3 Months or Most Recently Relevant to Health Maintenance Insurance [facility] [employer] [place] [employer] [place] Care Teams Director Geothermal Operations Relationship Specialty Start Date End Date Jaime Cleaning MD [address] [employer] [place], [place] [id number] PCP - General Internal Medicine 11/01/21 Soham Arnold MD [address] [place] [address] Referring Physician Cardiovascular Disease 02/03/19 Jeaneth Funez MD [address] [place] [address] Referring Physician Dermatology 03/10/19 Walt Shetty MD [address] [place] [address] Consulting Physician Rheumatology 11/01/21
--- OUTSIDE RECORDS SUMMARY | 2025-01-20 09:21 | XMS_ITS | Encounter Summary ---
Author Organization [facility] Address [address] [place] [address] Care Team Providers Care Sign Erector Name Role Phone Jt Zamora MD Primary Care Provider [phone] Encounter Details Date Type Department Care Team (Late st Contact Info) Description 09/18/2018 Lab Requisition [facility] [address] 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 Jar 0. 6:00 PM T DERMATOPATHOLOGY LABORATORY [...] characteristic determined by the Dermatopathology Laboratory at [facility], directed by Dr. Luke Lara. These tests need not be, and therefore are not, approved by the [place] Food and Drug Administration. The tests are used for clinical purposes. Billing Codes Specimen Charges Stain Charges 85295 1 9 6:00 PM CDT DERMATOPATHOLOGY LABORATORY Embedded Images 6:00 PM CDT DERMATOPATHOLOGY LABORATORY Pathology/Cytolog y TISSUE SPECIMEN FROM SKIN / Unknown 09/17/2018 09/18/2018 6:36 AM CDT us Jeaneth Funez MD LAB - PATHOLOGY/CYTOLOGY ORD ERABLES Final Result DERMATOPATHOLOGY LABORATORY [facility] - Department of Dermatology [address] [facility], 5th Floor Lab [address] [phone] documented in this encounter Visit Diagnoses Not on filedocumented in this encounter Care Teams Sign Erector Relationship Specialty Start Date End Date Jt Zamora MD PCP - General 04/12/08 documented as of this encounter
--- OUTSIDE RECORDS SUMMARY | 2025-01-20 09:21 | XMS_ITS | Patient Health Record ---
Author Organization [facility] Address [address] [facility] [address] [place] [address] Care Team Providers Care Carrier Packer Name Role Phone Jt Zamora MD Primary Care Provider Kirby Jeronimo Unavailable [phone] Soham Arnold MD Unavailable Unavailable Allergies Allergen [...] Problem Status W/U Status Risk Notes Problem [id number] Abnormal MRI of abdomen (R93.5) Active confirmed Plan Of Treatment Pending Test Test Name Order Date Initiate SIBO 08/08/2016 MRI Abdomen with Contrast 10/06/2018 Insurance Providers Payer Name Payer Address Payer Phone Subscriber Number Group Number Insured Name Patient Relationship to Insured Coverage Start Date Coverage End Date [employer] PPO [id number] [address] [place] [address] [id number] Sagar Evans Spouse - patient is the [...]
--- OUTSIDE RECORDS SUMMARY | 2025-01-20 09:21 | XMS_ITS | Clinical Summary ---
Author Organization [facility] Address [address] [place] [address] Care Team Providers Care Supervisor [employer]cher[employer] Name Role Phone Jt Zamora MD Primary Care Provider [phone] Source Comments [facility],non-owned Affiliates and Associated Physician Practices is amultiple site organization consisting of ambulatory clinics and hospital sitesin [place], [place], [place] and [place]. This disclosure is being madepursuant to the Care Everywhere program and may not contain all information available regarding this patient. 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 CHARGE NURSE Gender Identity Not on file Sexual Orientation Not on file Last Filed Vital Signs Vital Sign Reading Time Taken Comments Blood Pressure 118/59 05/26/2018 10:57 AM RELIEF CHARGE NURSE Pulse 83 05/26/2018 10:57 AM RELIEF CHARGE NURSE Temperature 36.5 C (97.7 F) 05/26/2018 10:57 AM RELIEF CHARGE NURSE Respiratory Rate 20 04/16/2018 2:00 PM RELIEF CHARGE NURSE Oxygen Saturation 95% 04/16/2018 2:00 PM RELIEF CHARGE NURSE Inhaled Oxygen Concentration - - Weight 109.4 kg (241 lb 1.6 oz) 019 10:57 AM RELIEF CHARGE NURSE Height 162.6 cm (5' 4) 05/26/2018 10:5 7 AM RELIEF CHARGE NURSE Body Mass Index 41.38 05/26/2018 10:57 AM RELIEF CHARGE NURSE Plan of Treatment Health Maintenance Due Date [...] COMPREHENSIVE METABOLIC PANEL Routine 03/25/2018 8:58 AM RELIEF CHARGE NURSE Elevated liver enzymes HEPATITIS C ANTIBODY Routine 01/28/2013 10:30 AM CDT from Last 3 Months or Most Recently Relevant to Health Maintenance Results * (ABNORMAL) COMPREHENSIVE METABOLIC PANEL (03/25/2018 8:58 AM RELIEF CHARGE NURSE) Glucose 112(H) 65 - 99 mg/dL [facility] [...] approximately 13% higher for people identified as -Vincentian. eGFR by MDRD 110 > OR = [...] 29 U/L [facility] Comment: Test Performed at: [facility] [id number] [place] [phone] LAURITA RAMIREZ DO,MPH Blood BLOOD SPECIMEN / Unknown 03/25/2018 8:58 AM RELIEF CHARGE NURSE 03/25/2018 8:59 AM RELIEF CHARGE NURSE us Darwin Mackenzie MD LAB - CHEMISTRY ORDERABLES Yumiko christian Result [facility] [id number] [place] [address] * HEPATITIS C ANTIBODY (01/28/2013 10:30 AM CDT) [facility] Hepatitis C Antibody NON-REACTI VE NON-REACT [facility] ([facility]) Signal/Cutoff 0.03 <1.00 [facility] ([facility]) Comment: Test Performed at: [facility] [address] [place] [address] LAURITA RAMIREZ DO,MPH 01/28/2013 10:3 0 AM CDT 01/28/2013 10:31 AM CDT us Kelly Caraballo MD LAB - CHEMISTRY OR DERABLES Edited Result - Final [facility] ([facility]) [id number] from Last 3 Months or Most Recently Relevant to Health Maintenance [place] [address] ANTHEM Care Teams Supervisor Commercial Fish Hatchery Relationship Specialty Start Date End Date Jt Zamora MD PCP - General 04/12/08
--- OUTSIDE RECORDS SUMMARY | 2025-01-20 09:21 | XMS_ITS | Encounter Summary ---
Author Organization [employer] [facility] Address [address] [place] [address] Care Team Providers Care Carbon Capture Power Plant Operator Name Role Phone Jt Zamora MD Primary Care Provider [phone] Encounter Details Date Type Department Care Team (Latest Contact Info) Description 07/23/[address] [facility] Scooter Del Cid MD Unspecified Arthropathy, Site Unspecified Social History Tobacco Use Types Packs/Day Years Used Date Smoking Tobacco: Never Assessed Comments Unknown Sex and Gender Information Value Date Recorded Sex Assigned at Not on file Legal Sex Female 5:32 AM ESCROW CLOSER Gender Identity Not on file Sexual Orientation [...] IGG (07/23/2007 7:47 AM CDT) Pathologist [facility] CYCLIC CITRULLINATED PEPTIDE AB IGG <20 Units [facility] Comment: REFERENCE RANGE: NEGATIVE: <20 WEAK POSITIVE: 20-39 MODERATE/STRONG POSITIVE: 40-59 STRONG POSITIVE: >59 Lab test performed by: [id number] [phone] LAURITA GARCIA MD Blood specimen (specimen) 07/23/2007 7:47 AM CDT 07/23/2007 9:21 AM CDT Scooter Wood MD CHEMISTRY ORDERABLES Final Resu lt Performing Organization Address [facility] Co de Phone Number [facility] [address] [place] [address] * ALDOLASE (07/23/2007 7:47 AM CDT) [facility] ALDOLASE 3.3 < OR = 8.1 U/L [facility] Comment: Lab test performed by: [employer] [id number] [address] [employer] [phone] LAURITA GARCIA MD Blood specimen (specimen) 07/23/2007 7:47 AM CDT 07/23/2007 8:06 AM CDT Scooter Wood MD CHEMISTRY ORDERABLES Final Resu lt Performing Organization Address City/[facility] Co de Phone Number [facility] [address] [place] [address] * RHEUMATOID FACTOR (07/23/2007 7:47 AM CDT) Pathologist [facility] RHEUMATOID FACTOR <6.0 0.0 - 13.9 IU/mL [facility] Blood specimen (specimen) 07/23/2007 7:47 AM CDT 07/23/2007 8:04 AM CDT us Scooter Wood MD CHEMISTRY ORDERABLES Final Resu lt Performing Organization Address [facility] Co de Phone Number [facility] [address] [place] [address] * COMPLEMENT C4 (07/23/2007 7:47 AM CDT) COMPLEMENT C4 20 10 - 40 mg/dL [facility] Blood specimen (specimen) 07/23/2007 7:47 AM CDT 07/23/2007 8:04 AM CDT us Scooter Wood MD CHEMISTRY ORDERABLES Final Resu lt Performing Organization Address [facility] Phone Number [facility] [address] [place] [address] * COMPLEMENT C3 (07/23/2007 7:47 AM CDT) COMPLEMENT C3 158 90 - 180 mg/dL [facility] Blood specimen (specimen) 07/23/2007 7:47 AM CDT 07/23/2007 8:04 AM CDT us Scooter Wood MD CHEMISTRY ORDERABLES Final Resu lt Performing Organization Address [facility] de Phone Number [facility] [address] [place] [address] * LUZ PANEL (07/23/2007 7:47 AM CDT) LUZ SCREEN NEGATIVE NEGATIVE [facility] Comment: Lab test performed by: [facility] [id number] [phone] LAURITA GARCIA MD DNA AUTOABS DOUBLE STRANDED 4 IU/mL [facility] Comment: IU/mL INTERPRETATION ===== < OR = 4 NEGATIVE 5 - 9 INDETERMINATE > OR = 10 POSITIVE Lab test performed by: [employer] [id number] [place] [address] LAURITA GARCIA MD SCLERODERMA AB SCL 70 <1.0 NEG <1.0 NEG Index [facility] Comment: Lab test performed by: [facility] [address] [place] [phone] LAURITA GARCIA MD SJOGRENS ABS (SSB) <1.0 NEG <1.0 NEG Index [facility] Comment: Lab test performed by: [facility] [address] [place] [phone] LAURITA GARCIA MD RUSS ABS, SM/FIRER LOCOMOTIVE AB <1.0 NEG <1.0 NEG Index [facility] Comment: Lab test performed by: [facility] [address] [place] [phone] LAURITA GARCIA MD RUSS ABS, SM AB <1.0 NEG <1.0 NEG Index [facility] SJOGRENS ABS (SSA) <1.0 NEG <1.0 NEG Index [facility] Blood specimen (specimen) 07/23/2007 7:47 AM CDT 07/23/2007 8:04 AM CDT Scooter Wood MD CHEMISTRY ORDERABLES Edited [facility] [address] [place] [address] * (ABNORMAL) HLA B27 (07/23/2007 7:47 AM CDT) HLA B27 DETECTED(A ) [facility] Comment: THE HLA B27 ANTIGEN IS PRESENT IN 9% OF AND 4% OF BLACK POPULATIONS. THIS ANTIGEN IS SEEN WITH A FREQUENCY OF 90% IN PATIENTS WITH ANKYLOSING SPONDYLITIS AND A FREQUENCY OF 80% IN PATIENTS WITH REITERS DISEASE. Lab test performed by: [employer] [address] [phone] LAURITA GARCIA MD Blood specimen (specimen) 07/23/2007 7:47 AM CDT 07/23/2007 8:06 AM CDT us Scooter Wood MD CHEMISTRY ORDERABLES Final Resu lt Performing Organization Address [facility] Phone Number [facility] [address] [place] [address] * HEPATITIS C ANTIBODY (07/23/2007 7:47 AM CDT) HEPATITIS C AB NON-REACTI VE NON-REACT SHERINE [facility] SIGNAL TO CUT OFF 0.05 <1.00 [facility] Comment: Lab test performed by: [facility] [id number] [phone] LAURITA GARCIA MD Blood specimen (specimen) 07/23/2007 7:47 AM CDT 07/23/2007 8:04 AM CDT us Scooter Wood MD CHEMISTRY ORDERABLES Final Resu lt Performing Organization Address [facility] de Phone Number [facility] [address] [place] [address] * HEPATITIS B SURFACE AB (07/23/2007 7:47 AM CDT) HEPATITIS B SURFACE AB <5 mIU/mL [facility] Comment: PATIENT DOES NOT HAVE IMMUNITY TO HEPATITIS B VIRUS. Lab test performed by: [facility] [id number] [phone] LAURITA GARCIA MD Blood specimen (specimen) 07/23/2007 7:47 AM CDT 07/23/2007 8:06 AM CDT us Scooter Wood MD CHEMISTRY ORDERABLES Final Resu lt Performing Organization Address [facility]/ZIP Co de Phone Number [facility] [address] [place] [address] * TSH (07/23/2007 7:47 AM CDT) [facility] TSH 1.07 0.27 - 4.20 uU/mL [facility] Blood specimen (specimen) 07/23/2007 7:47 AM CDT 07/23/2007 8:04 AM CDT Scooter Wood MD CHEMISTRY ORDERABLES Final Resu lt Performing Organization Address [facility] Co de Phone Number [facility] [address] [place] [address] * (ABNORMAL) LACTATE DEHYDROGENASE (07/23/2007 7:47 AM CDT) [facility] LD (LACTATE DEHYDROGENASE) 129(L) 135 - 214 U/L [facility] Blood specimen (specimen) 07/23/2007 7:47 AM CDT 07/23/2007 8:04 AM CDT Scooter Wood MD CHEMISTRY ORDERABLES Final Resu lt Performing Organization Address [facility] Co de Phone Number [facility] [address] [place] [address] * (ABNORMAL) CBC WITH DIFFERENTIAL (07/23/2007 7:47 AM CDT) [facility] HEMOGLOBIN 15.4(H) 11.8 - 14.8 g/dL [facility] RDW 13.8 11.5 - 14.5 % [facility] WBC 9.4 4.0 - 9.8 K/uL [facility] MCH 32.4 27.2 - 32.6 pg [facility] MPV 12.1 9.3 - 12.4 fL [facility] HEMATOCRIT 45.2(H) 35.5 - 44.0 % [facility] RDW-STDEV 47.6 37.1 - 48.7 fL [facility] RBC 4.75 3.90 - 4.90 M/uL [facility] MCHC 34.1 31.5 - 35.5 % [facility] MCV 95.2 82.0 - 99.0 fL [facility] PLATELETS 215 140 - 350 K/uL [facility] EOSINOPHILS 2 0 - 7 % [facility] EOSINOPHIL ABSOLUTE 0.22 0.00 - 0.70 K/uL [facility] LYMPHOCYTES 23 16 - 45 % [facility] LYMPHOCYTE ABSOLUTE 2.15 0.70 - 4.50 K/uL [facility] BASOPHILS 0 0 - 2 % [facility] BASOPHILS ABSOLUTE 0.03 0.00 - 0.20 K/uL [facility] MONOCYTES 4 3 - 13 % [facility] MONOCYTE ABSOLUTE 0.42 0.10 - 1.30 K/uL [facility] NEUTROPHILS 70 45 - 70 % [facility] NEUTROPHIL ABSOLUTE 6.62 1.90 - 7.00 K/uL [facility] Blood specimen (specimen) 07/23/2007 7:47 AM CDT 07/23/2007 8:29 AM CDT us Scooter Wood MD HEMATOLOGY ORDERABLES Edited INTERFACE SYSTEM Refer to clinic/hospital department [facility] [address] [place] [address] * CK (07/23/2007 7:47 AM CDT) CK 50 10 - 145 U/L [facility] Blood specimen (specimen) 07/23/2007 7:47 AM CDT 07/23/2007 8:04 AM CDT us Scooter Wood MD CHEMISTRY ORDERABLES Final Resu lt [facility] [address] [place] [address] * (ABNORMAL) COMPREHENSIVE METABOLIC PANEL (07/23/2007 7:47 AM CDT) CREATININE 0.52 0.51 - 0.95 mg/dL [facility] ALT 17 0 - 31 U/L [facility] SODIUM 135 135 - 145 mmol/L [facility] ALKALINE PHOSPHATASE 50 35 - 104 U/L [facility] CO2 23 22 - 30 mmol/L [facility] BILIRUBIN TOTAL 0.3 0.2 - 1.0 mg/dL [facility] POTASSIUM 4.1 3.5 - 4.9 mmol/L [facility] TOTAL PROTEIN 7.7 6.3 - 8.6 g/dL [facility] GLUCOSE 110(H) 65 - 99 mg/dL [facility] AST 17 12 - 32 U/L [facility] BUN 13 6 - 20 mg/dL [facility] CALCIUM 8.9 8.4 - 10.2 mg/dL [facility] ALBUMIN 4.4 3.4 - 4.8 g/dL [facility] CHLORIDE 102 96 - 108 mmol/L [facility] GFR, >60 >=60 mL/min/1. 7 sq meter [facility] GFR >60 >=60 mL/min/1. 7 sq meter [facility] Comment: Estimated GFR rate interpretative information for both Americans and non- Americans is available on the [facility] Intranet at: [email or web address] Select: Lab Policies and Procedures Select: Reference Ranges - GFR Blood specimen (specimen) 07/23/2007 7:47 AM CDT 07/23/2007 8:04 AM CDT us Scooter Wood MD CHEMISTRY ORDERABLES Edited Performing Organization Address [facility] de Phone Number [facility] [address] [place] [address] * C-REACTIVE PROTEIN (07/23/2007 7:47 AM CDT) Pathologist [facility] CRP 0.3 0.0 - 0.8 mg/dL [facility] Blood specimen (specimen) 07/23/2007 7:47 AM CDT 07/23/2007 8:04 AM CDT us Scooter Wood MD CHEMISTRY ORDERABLES Final Resu lt Performing Organization Address [facility] de Phone Number [facility] [address] [place] [address] * SEDIMENTATION RATE (07/23/2007 7:47 AM CDT) Pathologist [facility] ESR (SEDIMENTATION RATE) 6 0 - 20 mm/hr [facility] Blood specimen (specimen) 07/23/2007 7:47 AM CDT 07/23/2007 8:29 AM CDT us Scooter Wood MD HEMATOLOGY ORDERABLES Final Res ult Performing Organization Address [facility] de Phone Number [facility] [address] [place] [address] * URINALYSIS (07/23/2007 7:47 AM CDT) CLARITY UA Clear Clear [facility] BILIRUBIN UA Negative Negative [facility] PROTEIN UA Negative Negative [facility] LEUKOCYTE ESTERASE UA Negative Negative [facility] SPECIFIC GRAVITY UA 1.009 1.001 - 1.035 [facility] GLUCOSE UA Negative Negative [facility] BLOOD UA Negative Negative [facility] COLOR UA Pale Yellow [facility] NITRITE UA Negative Negative [facility] UROBILINOGEN UA <1 <=1 mg/dL [facility] PH UA 5.0 5.0 - 8.0 [facility] KETONES UA Negative Negative [facility] 07/23/2007 7:47 AM CDT 07/23/2007 8:32 AM CDT Scooter Wood MD URINE ORDERABLES Final Result [facility] [address] [place] [address] * XR WRIST 2 VW RIGHT (07/23/2007 7:12 AM CDT) Anatomical Region Laterality Modality Wrist / Hand Other 07/23/2007 7:12 AM CDT Narrative 07/23/2007 9:39 AM CDT [facility] [address] [place], [place] [address] Admit Date: 07/23/2007 BISHOP LANDRY Sex: F Admit Prov: KARELUMUDonya Leung Date: 1965 Primary Care Prov: KARELUMUDonya Leung CMRN: [id number] Room: SY[facility] SSN: [id number] IMAGING SERVICES Ordering Prov: N/A Accession Number: [id number] Interpretation RIGHT WRIST TWO VIEWS 07/23/2007 Clinical [...] Procedure Note Provider, Historical - 07/23/[address] [address] Admit Date: 07/23/2007 BISHOP LANDRY Sex: F Admit Prov: KARELSCOOTER Madhu Date:1965 Primary Care Prov: KARELUMUDonya Leung CMRN: [id number] Room: [facility] SSN: [address] [place] [address] IMAGING SERVICES Ordering Prov: N/A Interpretation RIGHT [...] AM CDT Narrative 07/23/2007 9:38 AM CDT [address] [address] [place], [place] [address] Admit Date: 07/23/2007 BISHOP LANDRY Sex: F Admit Prov: SCOOTER WOOD Date: 1965 Primary Care Prov: SCOOTER WOOD CMRN: [id number] Room: [facility]: [id number] IMAGING SERVICES Ordering Prov: N/A Accession Number: [id number] Interpretation LEFT WRIST 2 VIEWS 07/23/2007 History: [...] AMK Procedure Note Provider, Historical - 07/23/2007 [address] [place], [place] [address] Admit Date: 07/23/2007 BISHOP LANDRY Sex: F Admit Prov: SCOOTER WOOD Date:1965 Primary Care Prov: SCOOTER WOOD CMRN: [id number] Room: CHERELLENakul N: [id number] IMAGING SERVICES Ordering Prov: N/A Interpretation LEFT [...] CDT Narrative 07/23/2007 9:38 AM CDT [address] [address] Admit Date: 07/23/2007 LANDRY BISHOP Sex: F Admit Prov: SCOOTER WOOD Date: 1965 Primary Care Prov: SCOOTER WOOD CMRN: [id number] Room: [facility] SSN: [id number] IMAGING SERVICES Ordering Prov: N/A Accession Number: [id number] Interpretation RIGHT HAND TWO VIEWS 07/23/2007 Clinical [...] Procedure Note Provider, Historical - 07/23/[address] [place] [place], [place] [address] Admit Date: 07/23/2007 BISHOP LANDRY Sex: F Admit Prov: SCOOTER WOOD Date:1965 Primary Care Prov: SCOOTER WOOD CMRN: [id number] Room: [facility] SSN: [address] [place] [address] IMAGING SERVICES Ordering Prov: N/A Interpretation RIGHT [...] AM CDT Narrative 07/23/2007 9:39 AM CDT [address] [address] [place], [place] [address] Admit Date: 07/23/2007 BISHOP LANDRY Sex: F Admit Prov: SCOOTER WOOD Date: 1965 Primary Care Prov: SCOOTER WOOD CMRN: [id number] Room: [facility] SSN: [address] [place] [address] IMAGING SERVICES Ordering Prov: N/A Accession Number: [id number] Interpretation LEFT HAND TWO VIEWS 07/23/2007 Clinical [...] AMK Procedure Note Provider, Historical - 07/23/2007 [facility] [address] [place], [place] [address] Admit Date: 07/23/2007 BISHOP LANDRY Sex: F Admit Prov: SCOOTER WOOD Date:1965 Primary Care Prov: SCOOTER WOOD CMRN: [id number] Room: [facility] SSN: [id number] IMAGING SERVICES Ordering Prov: N/A Interpretation LEFT [...] CDT Narrative 07/23/2007 9:49 AM CDT [address] [address] Admit Date: 07/23/2007 BISHOP LANDRY Sex: F Admit Prov: SCOOTER WOOD Date: 1965 Primary Care Prov: SCOOTER WOOD CMRN: [id number] [facility]: [id number] IMAGING SERVICES Ordering Prov: N/A Accession Number: [id number] Interpretation RIGHT FOOT 2 VIEWS 07/23/2007 History: [...] Procedure Note Provider, Historical - 07/23/[address] [address] Admit Date: 07/23/2007 BISHOP LANDRY Sex: F Admit Prov: SCOOTER WOOD Date:1965 Primary Care Prov: SCOOTER WOOD CMRN: [id number] [facility]: [id number] IMAGING SERVICES Ordering Prov: N/A Interpretation RIGHT [...] AM CDT Narrative 07/23/2007 9:49 AM CDT [address] [address] [place], [place] [address] Admit Date: 07/23/2007 BISHOP LANDRY Sex: F Admit Prov: SCOOTER WOOD Date: 1965 Primary Care Prov: SCOOTER WOOD CMRN: [id number] Room: [facility] SSN: [id number] IMAGING SERVICES Ordering Prov: N/A Accession Number: [id number] Interpretation LEFT FOOT 2 VIEWS 07/23/2007 Clinical [...] AMK Procedure Note Provider, Historical - 07/23/2007 [address] [address] [place], [place] [address] Admit Date: 07/23/2007 BISHOP LANDRY Sex: F Admit Prov: SCOOTER WOOD Date:1965 Primary Care Prov: SCOOTER WOOD CMRN: [id number] Room: [facility] SSN: [id number] IMAGING SERVICES Ordering Prov: N/A Interpretation LEFT [...] CDT Narrative 07/23/2007 9:49 AM CDT [address] [address] Admit Date: 07/23/2007 BISHOP LANDRY Sex: F Admit Prov: SCOOTER WOOD Date: 1965 Primary Care Prov: SCOOTER WOOD CMRN: [id number] [facility]: [id number] IMAGING SERVICES Ordering Prov: N/A Accession Number: [id number] Interpretation RIGHT ANKLE 2 VIEWS 07/23/2007 History: [...] AMK Procedure Note Provider, Historical - 07/23/2007 [facility] [address] [place], [place] [address] Admit Date: 07/23/2007 BISHOP LANDRY Sex: F Admit Prov: SCOOTER WOOD Date:1965 Primary Care Prov: SCOOTER WOOD CMRN: [id number] Room: [facility] SSN: [id number] IMAGING SERVICES Ordering Prov: N/A Interpretation RIGHT [...] AM CDT Narrative 07/23/2007 9:49 AM CDT [address] [address] [place], [place] [address] Admit Date: 07/23/2007 BISHOP LANDRY Sex: F Admit Prov: SCOOTER WOOD Date: 1965 Primary Care Prov: SCOOTER WOOD CMRN: [id number] Room: [facility] SSN: [id number] IMAGING SERVICES Ordering Prov: N/A Accession Number: [id number] Interpretation LEFT ANKLE 2 VIEWS 07/23/2007 Clinical [...] AMK Procedure Note Provider, Historical - 07/23/2007 [address] [address] [place], [place] [address] Admit Date: 07/23/2007 BISHOP LANDRY Sex: F Admit Prov: SCOOTER WOOD Date:1965 Primary Care Prov: SCOOTER WOOD CMRN: [id number] Room: [facility] SSN: [id number] IMAGING SERVICES Ordering Prov: N/A Interpretation LEFT [...] unspecified documented in this encounter Care Teams Carbon Capture Power Plant Operator Relationship Specialty Start Date End Date Jt Zamora MD [address] [place] [phone] PCP - General Family Practice 12/17/11 documented as of this encounter
--- OUTSIDE RECORDS SUMMARY | 2025-01-20 09:21 | XMS_ITS | Encounter Summary ---
Author Organization [facility] Address [address] [place] [address] Care Team Providers Care Erosion Control Specialist Name Role Phone Jt Zamora MD Primary Care Provider [phone] Encounter Details Date Type Department Care Team (Late st Contact Info) Description 10/10/2008 Outpatient Historical [facility] Kirby Brambila MD [address] [place] [address] [place] [address] Heartburn; Diarrhea; Flatulence, Eructation, and Gas Pain Social History Tobacco Use Types Packs/Day Years Used Date Smoking Tobacco: Never Assessed Comments Unknown Sex and Gender Information Value Date Recorded Sex Assigned at Not on file 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 Sections of small bowel contain four fragments of small intestinal mucosa showing no significant histopathologic abnormalities. There is no significant increase in intraepithelial or lamina propria inflammation. Villous architecture appears preserved, without evidence of villous blunting. There is no evidence of active inflammation, granulomas, or foveolar metaplasia. [facility] 10.11.2008 10:12 am Staging Form: No. ELECTRONIC SIGNATURE FOR LIANA TITUS M.D.- 10/11/08 03:24 pm INTERFACE SYSTEM 10/10/2008 10:2 4 AM CDT Kirby Brambila MD PATHOLOGY/CYTOLOGY ORDERABLES Final Result INTERFACE SYSTEM Refer to clinic/hospital department * POC , URINE (10/10/2008 7:43 AM CDT) , URINE POC Negative Negative [facility] 10/10/2008 7:43 AM CDT 10/10/2008 7:43 AM CDT Kirby Brambila MD POINT OF CARE TESTING Final R esult INTERFACE SYSTEM Refer to clinic/hospital department [facility] CLIA# [id number] [address] [place] [address] documented in this encounter Visit Diagnoses Diagnosis Heartburn Diarrhea Flatulence, eructation, and gas pain documented in this encounter Care Teams Erosion Control Specialist Relationship Specialty Start Date End Date Jt Zamora MD [facility] [place] [address] PCP - General Family Practice 12/17/11 documented as of this encounter
--- OUTSIDE RECORDS SUMMARY | 2025-01-20 09:21 | XMS_ITS | Encounter Summary ---
Author Organization [facility] Address [address] [place] [address] Care Team Providers Care Natural Resource Technician Name Role Phone Jt Zamora MD Primary Care Provider [phone] Encounter Details Date Type Department Care Team (Late st Contact Info) Description 04/02/2018 Lab Requisition [facility] [address] [facility], [place] [phone] Jeaneth Funez MD [address] [facility] 3 [place] [address] Social History Tobacco Use Types Packs/Day Years Used Date Smoking Tobacco: Every Day Cigarettes Smokeless Tobacco: Never Alcohol Use Standard Drinks/Week Comments Yes 0 (1 standard drink = 0.6 oz pur e alcohol) 3 to 4 times a week Comments Unknown Sex and Gender Information Value Date Recorded Sex Assigned at Not on file Legal Sex Female 5:49 PM HEAT WELDER PLASTICS Gender Identity Not on file Sexual Orientation Not on file documented as of this encounter Plan of Treatment Not on file documented as of this encounter Procedures Procedure Name Priority Date/Time Associated Diagnosis Comments DERMATOPATH TECHNICAL REPORT Routine 04/01/2018 12:00 AM HEAT WELDER PLASTICS documented in this encounter Results * DERMATOPATH TECHNICAL REPORT (04/01/2018 12:00 AM HEAT WELDER PLASTICS) Case Report Dermatopathology Report Case: [id number] Authorizing Provider: Jeaneth Funez MD Collected: 04/01/2018 12:00 AM Pathologist: Radha Lara MD Received: 04/02/2018 07:23 AM Specimen: Skin, right hand 12:18 PM [facility] DERMATOPATHOLOGY LABORATORY Addendum 1 At the request of the diagnosing physician, the technical component for PAS and Colloidal Iron was performed by [facility] Dermatopathology Laboratory. 12:18 PM [facility] DERMATOPATHOLOGY LABORATORY Addendum electronically signed by Radha Lara MD on 04/07/2018 at 1218 HEAT WELDER PLASTICS Clinical History PSO vs CTD. [place] scaly patches. 12:18 PM [facility] DERMATOPATHOLOGY LABORATORY Gross Description Specimen A: Received is one formalin filled container labeled with the patient's name and designated right hand. The specimen consists of a punch measuring [id number], bisected. Jar 0. [facility] Dermatopathology [facility] performed the technical component only. 12:18 PM [facility] DERMATOPATHOLOGY [facility]ORATORY Embedded Images 12:18 PM [facility] DERMATOPATHOLOGY LABORATORY DISCLAIMER An external and [...] are used for clinical purposes. 12:18 PM [facility] DERMATOPATHOLOGY LABORATORY at 1739 HEAT WELDER PLASTICS Pathology/Cytolog y TISSUE SPECIMEN FROM SKIN / Unknown 04/01/2018 04/02/2018 7:23 AM HEAT WELDER PLASTICS us Jeaneth Funez MD LAB - PATHOLOGY/CYTOLOGY ORD ERABLES Edited Result - Final DERMATOPATHOLOGY LABORATORY [facility] - Department of Dermatology [address] [facility], 5th [place] [address], [facility] [phone] documented in this encounter Visit Diagnoses Not on filedocumented in this encounter Care Teams Natural Resource Technician Relationship Specialty Start Date End Date Jt Zamora MD PCP - General 04/12/08 documented as of this encounter
[2025-01-20 17:13] LABS: Add Urine Microscopic? NO; Appearance Urine Clear (Clear); Glucose Urine UA 2+ mg/dL (Negative); Leukocyte Esterase Ur Negative LEU/UL (Negative); Nitrate Urine Negative (Negative); Specific Grav Ur 1.005 (1.001-1.035)
== END 2025-01-20 08:58 | disposition home or self-care (01) ==
LOC: ANHGOSHLAB 08:58
PROVIDERS: PCP Internal Medicine; Visit Provider Internal Medicine
DX: R30.0 Dysuria (principal)
CPT/HCPCS: 81003

== ENCOUNTER 2025-02-23 09:47 | Outpatient (CLI) | payer BC, SELFPAY ==
--- OUTSIDE RECORDS SUMMARY | 2025-02-23 10:49 | XMS_ITS | Encounter Summary ---
Author Organization [facility] Address [address] [place] [address] Care Team Providers Care Oracle Database Administrator Name Role Phone Jt Zamora MD Primary Care Provider [phone] Encounter Details Date Type Department Care Team (Late st Contact Info) Description 10/10/2008 Outpatient Historical [facility] Kirby Brambila MD [address] [place] [address] [place] [address] Heartburn; Diarrhea; Flatulence, Eructation, and Gas Pain Social History Tobacco Use Types Packs/Day Years Used Date Smoking Tobacco: Never Assessed Comments Unknown Sex and Gender Information Value Date Recorded Sex Assigned at Not on file 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 Gender Identity Not on file Sexual Orientation Not on file documented as of this encounter Plan of Treatment Not on file documented as of this encounter Procedures Procedure Name Priority Date/Time Associated Diagnosis Comments PATHOLOGY Routine 10/10/2008 10:24 AM CDT POC , URINE Routine 10/10/2008 7:43 AM CDT documented in this encounter Results * PATHOLOGY (10/10/2008 10:24 AM CDT) FINAL REPORT [facility] [address], [place] [address] Patient: BISHOP LANDRY : 1965 Procedure Date: 10/10/2008 Accession Date: 10/10/2008 Case No: [id number] Ordering Dr: KIRBY BRAMBILA Case types AW, BW, FW, NW and SH are performed by [facility], [place], [place] SURGICAL PATHOLOGY & NON-GYNECOLOGIC CYTOPATHOLOGY REPORT [...] 12:32 pm Microscopic: Received are slides labeled [id number], Bishop Landry. Sections of small bowel contain four fragments of small intestinal mucosa showing no significant histopathologic abnormalities. There is no significant increase in intraepithelial or lamina propria inflammation. Villous architecture appears preserved, without evidence of villous blunting. There is no evidence of active inflammation, granulomas, or foveolar metaplasia. [facility] 10.11.2008 10:12 am Staging Form: No. ELECTRONIC SIGNATURE FOR LIANA TITUS M.D.- 10/11/08 03:24 pm INTERFACE SYSTEM 10/10/2008 10:2 4 AM CDT Kirby Brambila MD PATHOLOGY/CYTOLOGY ORDERABLES Final Result INTERFACE SYSTEM Refer to clinic/hospital department * POC , URINE (10/10/2008 7:43 AM CDT) , URINE POC Negative Negative [facility] 10/10/2008 7:43 AM CDT 10/10/2008 7:43 AM CDT Kirby Brambila MD POINT OF CARE TESTING Final R esult INTERFACE SYSTEM Refer to clinic/hospital department [facility] CLIA# [id number] [address] [place] [address] documented in this encounter Visit Diagnoses Diagnosis Heartburn Diarrhea Flatulence, eructation, and gas pain documented in this encounter Care Teams Oracle Database Administrator Relationship Specialty Start Date End Date Jt Zamora MD [facility] [place] [address] PCP - General Family Practice 12/17/11 documented as of this encounter
--- OUTSIDE RECORDS SUMMARY | 2025-02-23 10:49 | XMS_ITS | Clinical Summary ---
Author Organization [facility] [address] Address [address] [place] [address] Care Team Providers Care Receiver Setter Name Role Phone Soham Arnold MD Unavailable [phone] Jeaneth Funez MD Unavailable [phone] Walt Shetty MD Unavailable [phone] Jaime Cleaning MD Primary Care Provider [phone] Allergies Active Allergy Reactions Criticality Noted Date [...] hypertension 09/16/2023 Coronary artery disease invo lving platinum coronary artery of platinum heart without angina pectoris 09/16/2023 Morbid obesity [...] symptoms. 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 Saw research professor of biostatistics in the past who provided topical agents with resolution of skin rashes. 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 Impaired glucose tolerance 04/27/2013 Standard chest x-ray abnormal 08/19/2012 Encounters Date Type Department Care Team Description 11/23/[address] [address] Randi Foreman from Last 3 Months Surgical History Surgery Date Site/Laterality Comments UT TOTAL ABDOMINAL HYSTERECT W/WO RMVL TUBE OVARY Hysterectomy - (Added by TW Conv) BREAST SURGERY Breast Surgery Enlargement Procedure Bilateral - (Added by TW Conv) UT TONSILLECTOMY PRIMARY/SECONDARY <AGE 11 Tonsillectomy - (Added [...] or subcutaneous tissue History of urticaria - (state epidemiologist jhon with negative allergy testing). 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 For additional information please refer to http://[employer].Bricsnet/faq/DHQ18h8 (This link is being provided for informational/ educational purposes only.) 12/06/2021 11:2 6 AM CDT 12/06/2021 11:28 AM CDT us Walt Shetty MD LAB MICROBIOLOGY - GENERAL ORD ERABLES Final Result [facility] [id number] [address] [address] from Last 3 Months or Most Recently Relevant to Health Maintenance Insurance [facility] [employer] [place] Care Teams Receiver Setter Relationship Specialty Start Date End Date Jaime Cleaning MD [address] [place] [address] PCP - General Internal Medicine 11/01/21 Soham Arnold MD [address] [place] [address] [address] Referring Physician Cardiovascular Disease 02/03/19 Jeaneth Funez MD [address] [place] [address] Referring Physician Dermatology 03/10/19 Walt Shetty MD [address] [place] [address] Consulting Physician Rheumatology 11/01/21
--- OUTSIDE RECORDS SUMMARY | 2025-02-23 10:49 | XMS_ITS | Clinical Summary ---
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
--- OUTSIDE RECORDS SUMMARY | 2025-02-23 10:49 | XMS_ITS | Clinical Summary ---
Author Organization [facility] Address [address] [place] [address] Care Team Providers Care Photographic Equipment Mechanic Name Role Phone Jt Zamora MD Primary Care Provider [phone] Source Comments [facility],non-owned Affiliates and Associated Physician Practices is amultiple site organization consisting of ambulatory clinics and hospital sitesin [place], [place], [place] and [place]. This disclosure is being madepursuant to the Care Everywhere program and may not contain all information available regarding this patient. Last updated 18.[facility] Allergies Active Allergy Reactions Criticality Noted Date [...] 81 mg by mouth once daily Active [id number] ethyl esters (LOVAZA) 1 G capsule Take [...] on file Legal Sex Female 5:49 PM HOME THEATER EXPERT Gender Identity Not on file Sexual Orientation Not on file Last Filed Vital Signs Vital Sign Reading Time Taken Comments Blood Pressure 118/59 05/26/2018 10:57 AM HOME THEATER EXPERT Pulse 83 05/26/2018 10:57 AM HOME THEATER EXPERT Temperature 36.5 C (97.7 F) 05/26/2018 10:57 AM HOME THEATER EXPERT Respiratory Rate 20 04/16/2018 2:00 PM HOME THEATER EXPERT Oxygen Saturation 95% 04/16/2018 2:00 PM HOME THEATER EXPERT Inhaled Oxygen Concentration - - Weight 109.4 kg (241 lb 1.6 oz) 019 10:57 AM HOME THEATER EXPERT Height 162.6 cm (5' 4) 05/26/2018 10:5 7 AM HOME THEATER EXPERT Body Mass Index 41.38 05/26/2018 10:57 AM HOME THEATER EXPERT Plan of Treatment Health Maintenance Due Date [...] COMPREHENSIVE METABOLIC PANEL Routine 03/25/2018 8:58 AM HOME THEATER EXPERT Elevated liver enzymes HEPATITIS C ANTIBODY Routine 01/28/2013 10:30 AM CDT from Last 3 Months or Most Recently Relevant to Health Maintenance Results * (ABNORMAL) COMPREHENSIVE METABOLIC PANEL (03/25/2018 8:58 AM HOME THEATER EXPERT) Glucose 112(H) 65 - 99 mg/dL [facility] [...] approximately 13% higher for people identified as -Prydeinig. eGFR by MDRD 110 > OR = [...] 29 U/L [facility] Comment: Test Performed at: [email or web address] [id number] [place] [phone] LAURITA RAMIREZ DO,MPH Blood BLOOD SPECIMEN / Unknown 03/25/2018 8:58 AM HOME THEATER EXPERT 03/25/2018 8:59 AM HOME THEATER EXPERT us Darwin Mackenzie MD LAB - CHEMISTRY ORDERABLES Yumiko christian Result [facility] [address] [place] [address] * HEPATITIS C ANTIBODY (01/28/2013 10:30 AM CDT) [facility] Hepatitis C Antibody NON-REACTI VE NON-REACT SHERINE [facility] ([facility]) Signal/Cutoff 0.03 <1.00 [facility] ([facility]) Comment: Test Performed at: [email or web address] [facility] [address] [place] [address] LAURITA RAMIREZ DO,MPH 01/28/2013 10:3 0 AM CDT 01/28/2013 10:31 AM CDT us Kelly Caraballo MD LAB - CHEMISTRY OR DERABLES Edited Result - Final [facility] ([facility]) [id number] from Last 3 Months or Most Recently Relevant to Health Maintenance [place] [address] ANTHEM Care Teams Photographic Equipment Mechanic Relationship Specialty Start Date End Date Jt Zamora MD PCP - General 04/12/08
--- OUTSIDE RECORDS SUMMARY | 2025-02-23 10:49 | XMS_ITS | Encounter Summary ---
Author Organization [facility] Address [address] [place] [address] Care Team Providers Care Motor Vehicle Lecturer Name Role Phone Jt Zamora MD Primary Care Provider Encounter Details Date Type Department Care Team (Late st Contact Info) Description 09/18/2018 Lab Requisition [facility] Lab [address] [facility] [place] [address] Jeaneth Funez MD [address] [facility] 3 [place] [address] Social History Tobacco Use Types Packs/Day Years Used Date Smoking Tobacco: Every Day Cigarettes Smokeless Tobacco: Never Alcohol Use Standard Drinks/Week Comments Yes 0 (1 standard drink = 0.6 oz pur e alcohol) 2 - 3 times a week Comments Unknown Sex and Gender Information Value Date Recorded Sex Assigned at Not on file Legal Sex Female 5:49 PM 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 Jar 0. 6:00 PM T DERMATOPATHOLOGY LABORATORY [...] characteristic determined by the Dermatopathology Laboratory at [facility], directed by Dr. Luke Lara. These tests need not be, and therefore are not, approved by the [place] Food and Drug Administration. The tests are used for clinical purposes. Billing Codes Specimen Charges Stain Charges 54816 1 9 6:00 PM CDT DERMATOPATHOLOGY LABORATORY Embedded Images 6:00 PM CDT DERMATOPATHOLOGY LABORATORY Pathology/Cytolog y TISSUE SPECIMEN FROM SKIN / Unknown 09/17/2018 09/18/2018 6:36 AM CDT us Jeaneth Fuenz MD LAB - PATHOLOGY/CYTOLOGY ORD ERABLES Final Result DERMATOPATHOLOGY LABORATORY [facility] - Department of Dermatology [address] [facility], 5th Floor Lab [address] [phone] documented in this encounter Visit Diagnoses Not on filedocumented in this encounter Care Teams Motor Vehicle Lecturer Relationship Specialty Start Date End Date Jt Zamora MD PCP - General 04/12/08 documented as of this encounter
--- OUTSIDE RECORDS SUMMARY | 2025-02-23 10:49 | XMS_ITS | Encounter Summary ---
Author Organization [facility] Address [address] [facility] [place] [address] Care Team Providers Care Workgroup Leader Name Role Phone Jt Zamora MD Primary Care Provider [phone] Encounter Details Date Type Department Care Team (Late st Contact Info) Description 04/02/2018 Lab Requisition [facility] [address] [facility] [place] [phone] Jeaneth Funez MD [address] [facility] 3 [place] [address] Social History Tobacco Use Types Packs/Day Years Used Date Smoking Tobacco: Every Day Cigarettes Smokeless Tobacco: Never Alcohol Use Standard Drinks/Week Comments Yes 0 (1 standard drink = 0.6 oz pur e alcohol) 3 to 4 times a week Comments Unknown Sex and Gender Information Value Date Recorded Sex Assigned at Not on file Legal Sex Female 5:49 PM CONTAINER PACKER OPERATOR Gender Identity Not on file Sexual Orientation Not on file documented as of this encounter Plan of Treatment Not on file documented as of this encounter Procedures Procedure Name Priority Date/Time Associated Diagnosis Comments DERMATOPATH TECHNICAL REPORT Routine 04/01/2018 12:00 AM CONTAINER PACKER OPERATOR documented in this encounter Results * DERMATOPATH TECHNICAL REPORT (04/01/2018 12:00 AM CONTAINER PACKER OPERATOR) Case Report Dermatopathology Report Case: [id number] Authorizing Provider: Jeaneth Funez MD Collected: 04/01/2018 12:00 AM Pathologist: Radha Lara MD Received: 04/02/2018 07:23 AM Specimen: Skin, right hand 12:18 PM [facility] DERMATOPATHOLOGY LABORATORY Addendum 1 At the request of the diagnosing physician, the technical component for PAS and Colloidal Iron was performed by [facility] Dermatopathology Laboratory. 12:18 PM [facility] DERMATOPATHOLOGY LABORATORY Addendum electronically signed by Radha Lara MD on 04/07/2018 at 1218 CONTAINER PACKER OPERATOR Clinical History PSO vs CTD. [place] scaly patches. 12:18 PM [facility] DERMATOPATHOLOGY LABORATORY Gross Description Specimen A: Received is one formalin filled container labeled with the patient's name and designated right hand. The specimen consists of a punch measuring 5s0x7mu, bisected. Jar 0. [facility] Dermatopathology Laboratory performed the technical component only. 12:18 PM [facility] DERMATOPATHOLOGY LABORATORY Embedded Images 12:18 PM [facility] DERMATOPATHOLOGY LABORATORY DISCLAIMER An external and internal positive and negative controls are appropriate for the histochemical, immunohistochemical and immunofluorescence stain(s) in this case (if any), except where stated explicitly. The performance characteristics of the stain(s) cited in this report were developed and its performance characteristic determined by the Dermatopathology Laboratory at [facility]. These tests need not be, and therefore are not, approved by the [place] Food and Drug Administration. The tests are used for clinical purposes. 12:18 PM [facility] DERMATOPATHOLOGY LABORATORY at 1739 CONTAINER PACKER OPERATOR Pathology/Cytolog y TISSUE SPECIMEN FROM SKIN / Unknown 04/01/2018 04/02/2018 7:23 AM CONTAINER PACKER OPERATOR us Jeaneth Funez MD LAB - PATHOLOGY/CYTOLOGY ORD ERABLES Edited Result - Final DERMATOPATHOLOGY LABORATORY [facility] - Department of Dermatology [address] [facility], 5th [place] [address], [facility] [phone] documented in this encounter Visit Diagnoses Not on filedocumented in this encounter Care Teams Workgroup Leader Relationship Specialty Start Date End Date Jt Zamora MD PCP - General 04/12/08 documented as of this encounter
--- OUTSIDE RECORDS SUMMARY | 2025-02-23 10:49 | XMS_ITS | Patient Health Record ---
Author Organization [facility] Address [address] [facility] [address] [place] [address] Care Team Providers Care Wrecker Operator Name Role Phone Jt Zamora MD Primary Care Provider Kirby Jeronimo Unavailable [phone] Soham Arnold MD Unavailable Unavailable Allergies Allergen [...] 1 tablet at bedtime Orally Once a day; Duration: 30 day(s) Active buPROPion HCl ER (XL) [...] Problem Status W/U Status Risk Notes Problem Imaging of abdomen abnormal (009078589) Abnormal MRI of abdomen (R93.5) Active confirmed Plan Of Treatment Pending Test Test Name Order Date Initiate SIBO 08/08/2016 MRI Abdomen with Contrast 10/06/2018 Insurance Providers Payer Name Payer Address Payer Phone Subscriber Number Group Number Insured Name Patient Relationship to Insured Coverage Start Date Coverage End Date [employer] Access Choice PPO E2 [address] [place] [address] [id number] Sagar Evans Spouse - patient is the [...]
--- OUTSIDE RECORDS SUMMARY | 2025-02-23 10:49 | XMS_ITS | Encounter Summary ---
Author Organization [employer] [facility] Address 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 Gender Identity Not on file Sexual [...] AB IGG (07/23/2007 7:47 AM CDT) Pathologist [facility] CYCLIC CITRULLINATED PEPTIDE AB IGG <20 Units [facility] Comment: REFERENCE RANGE: NEGATIVE: <20 WEAK POSITIVE: 20-39 MODERATE/STRONG POSITIVE: 40-59 STRONG POSITIVE: >59 Lab test performed by: [id number] [facility] [id number] LAURITA GARCIA MD Blood specimen (specimen) 07/23/2007 7:47 AM CDT 07/23/2007 9:21 AM CDT Scooter Wood MD CHEMISTRY ORDERABLES Final Resu lt Performing Organization Address [facility] Co de Phone Number [facility] [address] [place] [address] * ALDOLASE (07/23/2007 7:47 AM CDT) [facility] ALDOLASE 3.3 < OR = 8.1 U/L [facility] Comment: Lab test performed by: [employer] [id number] [employer] [facility] [phone] LAURITA GARCIA MD Blood specimen (specimen) 07/23/2007 7:47 AM CDT 07/23/2007 8:06 AM CDT Scooter Wood MD CHEMISTRY ORDERABLES Final Resu lt Performing Organization Address City/[facility] Co de Phone Number [facility] [address] [place] [address] * RHEUMATOID FACTOR (07/23/2007 7:47 AM CDT) Pathologist [facility] RHEUMATOID FACTOR <6.0 0.0 - 13.9 IU/mL [facility] Blood specimen (specimen) 07/23/2007 7:47 AM CDT 07/23/2007 8:04 AM CDT us Scooter Wood MD CHEMISTRY ORDERABLES Final Resu lt Performing Organization Address [facility] Co de Phone Number [facility] [address] [place] [address] * COMPLEMENT C4 (07/23/2007 7:47 AM CDT) COMPLEMENT C4 20 10 - 40 mg/dL [facility] Blood specimen (specimen) 07/23/2007 7:47 AM CDT 07/23/2007 8:04 AM CDT us Scooter Wood MD CHEMISTRY ORDERABLES Final Resu lt Performing Organization Address [facility] Phone Number [facility] [address] [place] [address] * COMPLEMENT C3 (07/23/2007 7:47 AM CDT) COMPLEMENT C3 158 90 - 180 mg/dL [facility] Blood specimen (specimen) 07/23/2007 7:47 AM CDT 07/23/2007 8:04 AM CDT us Scooter Wood MD CHEMISTRY ORDERABLES Final Resu lt Performing Organization Address [facility] de Phone Number [facility] [address] [place] [address] * LUZ PANEL (07/23/2007 7:47 AM CDT) LUZ SCREEN NEGATIVE NEGATIVE [facility] Comment: Lab test performed by: [facility] [address] [phone] LAURITA GARCIA MD DNA AUTOABS DOUBLE STRANDED 4 IU/mL [facility] Comment: IU/mL INTERPRETATION ===== < OR = 4 NEGATIVE 5 - 9 INDETERMINATE > OR = 10 POSITIVE Lab test performed by: [employer] [id number] [place] [address] LAURITA GARCIA MD SCLERODERMA AB SCL 70 <1.0 NEG <1.0 NEG Index [facility] Comment: Lab test performed by: [employer] [address] [place] [phone] LAURITA GARCIA MD SJOGRENS ABS (SSB) <1.0 NEG <1.0 NEG Index [facility] Comment: Lab test performed by: [employer] [address] [place] [phone] LAURITA GARCIA MD RUSS ABS, SM/APPLICATION TECHNICAL DESIGNER AB <1.0 NEG <1.0 NEG Index [facility] Comment: Lab test performed by: [employer] [address] [place] [phone] LAURITA GARCIA MD RUSS ABS, SM AB <1.0 NEG <1.0 NEG Index [facility] SJOGRENS ABS (SSA) <1.0 NEG <1.0 NEG Index [facility] Blood specimen (specimen) 07/23/2007 7:47 AM CDT 07/23/2007 8:04 AM CDT Scooter Wood MD CHEMISTRY ORDERABLES Edited [facility] [address] [place] [address] * (ABNORMAL) HLA B27 (07/23/2007 7:47 AM CDT) HLA B27 DETECTED(A ) [facility] Comment: THE HLA B27 ANTIGEN IS PRESENT IN 9% OF AND 4% OF BLACK POPULATIONS. THIS ANTIGEN IS SEEN WITH A FREQUENCY OF 90% IN PATIENTS WITH ANKYLOSING SPONDYLITIS AND A FREQUENCY OF 80% IN PATIENTS WITH REITERS DISEASE. Lab test performed by: [employer] [address] [place] [phone] LAURITA GARCIA MD Blood specimen (specimen) 07/23/2007 7:47 AM CDT 07/23/2007 8:06 AM CDT us Scooter Wood MD CHEMISTRY ORDERABLES Final Resu lt Performing Organization Address [facility] Phone Number [facility] [address] [place] [address] * HEPATITIS C ANTIBODY (07/23/2007 7:47 AM CDT) HEPATITIS C AB NON-REACTI VE NON-REACT SHERINE [facility] SIGNAL TO CUT OFF 0.05 <1.00 [facility] Comment: Lab test performed by: [facility] [place] [id number] [phone] LAURITA GARCIA MD Blood specimen (specimen) 07/23/2007 7:47 AM CDT 07/23/2007 8:04 AM CDT us Scooter Wood MD CHEMISTRY ORDERABLES Final Resu lt Performing Organization Address [facility] de Phone Number [facility] [address] [place] [address] * HEPATITIS B SURFACE AB (07/23/2007 7:47 AM CDT) HEPATITIS B SURFACE AB <5 mIU/mL [facility] Comment: PATIENT DOES NOT HAVE IMMUNITY TO HEPATITIS B VIRUS. Lab test performed by: [facility] [place] [address] [phone] LAURITA GARCIA MD Blood specimen (specimen) 07/23/2007 7:47 AM CDT 07/23/2007 8:06 AM CDT us Scooter Wood MD CHEMISTRY ORDERABLES Final Resu lt Performing Organization Address [facility]/ZIP Co de Phone Number [facility] [address] [place] [address] * TSH (07/23/2007 7:47 AM CDT) [facility] TSH 1.07 0.27 - 4.20 uU/mL [facility] Blood specimen (specimen) 07/23/2007 7:47 AM CDT 07/23/2007 8:04 AM CDT Scooter Wood MD CHEMISTRY ORDERABLES Final Resu lt Performing Organization Address [facility] Co de Phone Number [facility] [address] [place] [address] * (ABNORMAL) LACTATE DEHYDROGENASE (07/23/2007 7:47 AM CDT) [facility] LD (LACTATE DEHYDROGENASE) 129(L) 135 - 214 U/L [facility] Blood specimen (specimen) 07/23/2007 7:47 AM CDT 07/23/2007 8:04 AM CDT Scooter Wood MD CHEMISTRY ORDERABLES Final Resu lt Performing Organization Address [facility] Co de Phone Number [facility] [address] [place] [address] * (ABNORMAL) CBC WITH DIFFERENTIAL (07/23/2007 7:47 AM CDT) [facility] HEMOGLOBIN 15.4(H) 11.8 - 14.8 g/dL [facility] RDW 13.8 11.5 - 14.5 % [facility] WBC 9.4 4.0 - 9.8 K/uL [facility] MCH 32.4 27.2 - 32.6 pg [facility] MPV 12.1 9.3 - 12.4 fL [facility] HEMATOCRIT 45.2(H) 35.5 - 44.0 % [facility] RDW-STDEV 47.6 37.1 - 48.7 fL [facility] RBC 4.75 3.90 - 4.90 M/uL [facility] MCHC 34.1 31.5 - 35.5 % [facility] MCV 95.2 82.0 - 99.0 fL [facility] PLATELETS 215 140 - 350 K/uL [facility] EOSINOPHILS 2 0 - 7 % [facility] EOSINOPHIL ABSOLUTE 0.22 0.00 - 0.70 K/uL [facility] LYMPHOCYTES 23 16 - 45 % [facility] LYMPHOCYTE ABSOLUTE 2.15 0.70 - 4.50 K/uL [facility] BASOPHILS 0 0 - 2 % [facility] BASOPHILS ABSOLUTE 0.03 0.00 - 0.20 K/uL [facility] MONOCYTES 4 3 - 13 % [facility] MONOCYTE ABSOLUTE 0.42 0.10 - 1.30 K/uL [facility] NEUTROPHILS 70 45 - 70 % [facility] NEUTROPHIL ABSOLUTE 6.62 1.90 - 7.00 K/uL [facility] Blood specimen (specimen) 07/23/2007 7:47 AM CDT 07/23/2007 8:29 AM CDT us Scooter Wood MD HEMATOLOGY ORDERABLES Edited INTERFACE SYSTEM Refer to clinic/hospital department [facility] [address] [place] [address] * CK (07/23/2007 7:47 AM CDT) CK 50 10 - 145 U/L [facility] Blood specimen (specimen) 07/23/2007 7:47 AM CDT 07/23/2007 8:04 AM CDT us Scooter Wood MD CHEMISTRY ORDERABLES Final Resu lt [facility] [address] [place] [address] * (ABNORMAL) COMPREHENSIVE METABOLIC PANEL (07/23/2007 7:47 AM CDT) CREATININE 0.52 0.51 - 0.95 mg/dL [facility] ALT 17 0 - 31 U/L [facility] SODIUM 135 135 - 145 mmol/L [facility] ALKALINE PHOSPHATASE 50 35 - 104 U/L [facility] CO2 23 22 - 30 mmol/L [facility] BILIRUBIN TOTAL 0.3 0.2 - 1.0 mg/dL [facility] POTASSIUM 4.1 3.5 - 4.9 mmol/L [facility] TOTAL PROTEIN 7.7 6.3 - 8.6 g/dL [facility] GLUCOSE 110(H) 65 - 99 mg/dL [facility] AST 17 12 - 32 U/L [facility] BUN 13 6 - 20 mg/dL [facility] CALCIUM 8.9 8.4 - 10.2 mg/dL [facility] ALBUMIN 4.4 3.4 - 4.8 g/dL [facility] CHLORIDE 102 96 - 108 mmol/L [facility] GFR, >60 >=60 mL/min/1. 7 sq meter [facility] GFR >60 >=60 mL/min/1. 7 sq meter [facility] Comment: Estimated GFR rate interpretative information for both Americans and non- Americans is available on the [facility] [employer] at: [email or web address] Select: Lab Policies and Procedures Select: Reference Ranges - GFR Blood specimen (specimen) 07/23/2007 7:47 AM CDT 07/23/2007 8:04 AM CDT us Scooter Wood MD CHEMISTRY ORDERABLES Edited Performing Organization Address [facility] de Phone Number [facility] [address] [place] [address] * C-REACTIVE PROTEIN (07/23/2007 7:47 AM CDT) Pathologist [facility] CRP 0.3 0.0 - 0.8 mg/dL [facility] Blood specimen (specimen) 07/23/2007 7:47 AM CDT 07/23/2007 8:04 AM CDT us Scooter Wood MD CHEMISTRY ORDERABLES Final Resu lt Performing Organization Address [facility] de Phone Number [facility] [address] [place] [address] * SEDIMENTATION RATE (07/23/2007 7:47 AM CDT) Pathologist [facility] ESR (SEDIMENTATION RATE) 6 0 - 20 mm/hr [facility] Blood specimen (specimen) 07/23/2007 7:47 AM CDT 07/23/2007 8:29 AM CDT us Scooter Wood MD HEMATOLOGY ORDERABLES Final Res ult Performing Organization Address [facility] de Phone Number [facility] [address] [place] [address] * URINALYSIS (07/23/2007 7:47 AM CDT) CLARITY UA Clear Clear [facility] BILIRUBIN UA Negative Negative [facility] PROTEIN UA Negative Negative [facility] LEUKOCYTE ESTERASE UA Negative Negative [facility] SPECIFIC GRAVITY UA 1.009 1.001 - 1.035 [facility] GLUCOSE UA Negative Negative [facility] BLOOD UA Negative Negative [facility] COLOR UA Pale Yellow [facility] NITRITE UA Negative Negative [facility] UROBILINOGEN UA <1 <=1 mg/dL [facility] PH UA 5.0 5.0 - 8.0 [facility] KETONES UA Negative Negative [facility] 07/23/2007 7:47 AM CDT 07/23/2007 8:32 AM CDT Scooter Wood MD URINE ORDERABLES Final Result [facility] [address] [place] [address] * XR WRIST 2 VW RIGHT (07/23/2007 7:12 AM CDT) Anatomical Region Laterality Modality Wrist / Hand Other 07/23/2007 7:12 AM CDT Narrative 07/23/2007 9:39 AM CDT [facility] [address] [place], [place] [address] Admit Date: 07/23/2007 BISHOP LANDRY Sex: F Admit Prov: KARELUMUDonya Leung Date: 1965 Primary Care Prov: KARELUMUDonya Leung CMRN: [id number] Room: [facility] SSN: [id number] IMAGING SERVICES Ordering Prov: N/A Accession Number: [id number] Interpretation RIGHT WRIST TWO VIEWS 07/23/2007 Clinical [...] AMK Procedure Note Provider, Historical - 07/23/[address] [address] Admit Date: 07/23/2007 BISHOP LANDRY Sex: F Admit Prov: KARELSCOOTER Madhu Date:1965 Primary Care Prov: KARELUMUDonya Leung CMRN: [id number] Room: [facility] SSN: [address] [place] [address] IMAGING SERVICES Ordering Prov: N/A Interpretation RIGHT [...] AM CDT Narrative 07/23/2007 9:38 AM CDT [address] [address] [place], [place] [address] Admit Date: 07/23/2007 BISHOP LANDRY Sex: F Admit Prov: SCOOTER WOOD Date: 1965 Primary Care Prov: SCOOTER WOOD CMRN: [id number] Room: [facility]: [id number] IMAGING SERVICES Ordering Prov: N/A Accession Number: [id number] Interpretation LEFT WRIST 2 VIEWS 07/23/2007 History: [...] AMK Procedure Note Provider, Historical - 07/23/2007 [address] [place], [place] [address] Admit Date: 07/23/2007 BISHOP LANDRY Sex: F Admit Prov: SCOOTER WOOD Date:1965 Primary Care Prov: SCOOTER WOOD CMRN: [id number] Room: CHERELL[facility]ul N: [id number] IMAGING SERVICES Ordering Prov: N/A Interpretation LEFT [...] AM CDT Narrative 07/23/2007 9:38 AM CDT [address] [address] Admit Date: 07/23/2007 LANDRY BISHOP Sex: F Admit Prov: SCOOTER WOOD Date: 1965 Primary Care Prov: SCOOTER WOOD CMRN: [id number] Room: [facility] SSN: [id number] IMAGING SERVICES Ordering Prov: N/A Accession Number: [id number] Interpretation RIGHT HAND TWO VIEWS 07/23/2007 Clinical [...] AMK Procedure Note Provider, Historical - 07/23/[address] [place], [place] [address] Admit Date: 07/23/2007 BISHOP LANDRY Sex: F Admit Prov: SCOOTER WOOD Date:1965 Primary Care Prov: SCOOTER WOOD CMRN: [id number] Room: [facility] SSN: [address] [place] [address] IMAGING SERVICES Ordering Prov: N/A Interpretation RIGHT [...] AM CDT Narrative 07/23/2007 9:39 AM CDT [address] [address] [place], [place] [address] Admit Date: 07/23/2007 BISHOP LANDRY Sex: F Admit Prov: SCOOTER WOOD Date: 1965 Primary Care Prov: SCOOTER WOOD CMRN: [id number] Room: [facility] SSN: [address] [place] [address] IMAGING SERVICES Ordering Prov: N/A Accession Number: [id number] Interpretation LEFT HAND TWO VIEWS 07/23/2007 Clinical [...] AMK Procedure Note Provider, Historical - 07/23/2007 [facility] [address] [place] [place], [place] [address] Admit Date: 07/23/2007 BISHOP LANDRY Sex: F Admit Prov: SCOOTER WOOD Date:1965 Primary Care Prov: SCOOTER WOOD CMRN: [id number] Room: [facility] SSN: [id number] IMAGING SERVICES Ordering Prov: N/A Interpretation LEFT [...] AM CDT Narrative 07/23/2007 9:49 AM CDT [address] [address] Admit Date: 07/23/2007 BISHOP LANDRY Sex: F Admit Prov: SCOOTER WOOD Date: 1965 Primary Care Prov: SCOOTER WOOD CMRN: [id number] [facility] [id number] IMAGING SERVICES Ordering Prov: N/A Accession Number: [id number] Interpretation RIGHT FOOT 2 VIEWS 07/23/2007 History: [...] AMK Procedure Note Provider, Historical - 07/23/[address] [address] Admit Date: 07/23/2007 BISHOP LANDRY Sex: F Admit Prov: SCOOTER WOOD Date:1965 Primary Care Prov: SCOOTER WOOD CMRN: [id number] [facility]: [id number] IMAGING SERVICES Ordering Prov: N/A Interpretation RIGHT [...] AM CDT Narrative 07/23/2007 9:49 AM CDT [address] [address] [place], [place] [address] Admit Date: 07/23/2007 BISHOP LANDRY Sex: F Admit Prov: SCOOTER WOOD Date: 1965 Primary Care Prov: SCOOTER WOOD CMRN: [id number] Room: [facility] SSN: [id number] IMAGING SERVICES Ordering Prov: N/A Accession Number: [id number] Interpretation LEFT FOOT 2 VIEWS 07/23/2007 Clinical [...] AMK Procedure Note Provider, Historical - 07/23/2007 [address] [address] [place], [place] [address] Admit Date: 07/23/2007 BISHOP LANDRY Sex: F Admit Prov: SCOOTER WOOD Date:1965 Primary Care Prov: SCOOTER WOOD CMRN: [id number] Room: [facility] SSN: [id number] IMAGING SERVICES Ordering Prov: N/A Interpretation LEFT [...] AM CDT Narrative 07/23/2007 9:49 AM CDT [address] [address] Admit Date: 07/23/2007 BISHOP LANDRY Sex: F Admit Prov: SCOOTER WOOD Date: 1965 Primary Care Prov: SCOOTER WOOD CMRN: [id number] [facility]: [id number] IMAGING SERVICES Ordering Prov: N/A Accession Number: [id number] Interpretation RIGHT ANKLE 2 VIEWS 07/23/2007 History: [...] AMK Procedure Note Provider, Historical - 07/23/2007 [facility] [address] [place], [place] [address] Admit Date: 07/23/2007 BISHOP LANDRY Sex: F Admit Prov: SCOOTER WOOD Date:1965 Primary Care Prov: SCOOTER WOOD CMRN: [id number] Room: [facility] SSN: [id number] IMAGING SERVICES Ordering Prov: N/A Interpretation RIGHT [...] AM CDT Narrative 07/23/2007 9:49 AM CDT [address] [address] [place], [place] [address] Admit Date: 07/23/2007 BISHOP LANDRY Sex: F Admit Prov: SCOOTER WOOD Date: 1965 Primary Care Prov: SCOOTER WOOD CMRN: [id number] Room: [facility] SSN: [id number] IMAGING SERVICES Ordering Prov: N/A Accession Number: [id number] Interpretation LEFT ANKLE 2 VIEWS 07/23/2007 Clinical [...] AMK Procedure Note Provider, Historical - 07/23/2007 [address] [address] [place], [place] [address] Admit Date: 07/23/2007 BISHOP LANDRY Sex: F Admit Prov: SCOOTER WOOD Date:1965 Primary Care Prov: SCOOTER WOOD CMRN: [id number] Room: [facility] SSN: [id number] IMAGING SERVICES Ordering Prov: N/A Interpretation LEFT [...] unspecified documented in this encounter Care Teams Front Office Spec Relationship Specialty Start Date End Date Jt Zamora MD [address] [place] [phone] PCP - General Family Practice 12/17/11 documented as of this encounter
--- NOTE | 2025-02-23 13:09 | WPDPFTINT ---
PFT Procedure Performed PFT Procedure Performed Spirometry with Pre/Post Bronchodilator Plethysmography (Lung Vol) Diffusing Cap (DLCO) Flow Vol Loop PFT Interpretation This is a pulmonary function test with pre and post-bronchodilator spirometry, plethysmography and diffusing capacity. The test was performed and results interpreted in accordance with the 2019 and 2005 ATS/ERS Task Force guidelines respectively using the Global Lung Function Initiative-2012 reference equations. Patient demonstrated good effort and cooperation. Reproducibility criteria were met. The quality of the pre bronchodilator spirometry maneuver was Grade A and post bronchodilator spirometry maneuver was Grade A. Findings: Spirometry: The contour the inspiratory and expiratory flow tracing are normal. The pre bronchodilator FVC is 2.68 L, 85% predicted. The pre bronchodilator FEV1 is 2.02 L, 81% predicted. The pre bronchodilator FEV1: FVC ratio 75%. The post bronchodilator FVC is 2.61 L, representing a 3% decrease. The post bronchodilator FEV1 is 2.06 L, representing a 2% increase. The post bronchodilator FEV1: FVC ratio is 79%. Plethysmography: The total lung capacity is 4.63 L, 91% predicted. The functional residual capacity is 2.78 L, 97% predicted. The residual volume is 1.92 L, 95% predicted. Diffusing capacity: The diffusing capacity unadjusted for hemoglobin and carboxyhemoglobin is 17.6, 82% predicted. The diffusing capacity adjusted for alveolar volume is 4.52, 102% predicted. In comparison to previous pulmonary function testing on 09/06/2019, in which only spirometry and diffusing capacity were performed, the post bronchodilator FVC is unchanged from 2.78 L to 2.61 L. The post bronchodilator FEV1 is unchanged from 2.16 L to 2.06 L. The diffusing capacity unadjusted for hemoglobin and carboxyhemoglobin is unchanged from 18.0 to 17.6. The diffusing capacity adjusted for alveolar volume is unchanged from 4.46 to 4.52 Impression: The spirometry is normal without evidence of an obstructive abnormality. There is no significant improvement after inhaling a single dose of albuterol. The lung volumes are normal. The diffusing capacity is normal. In comparison to previous pulmonary function testing on 09/06/2019 in which only spirometry and diffusing capacity were performed, there has been no significant change in the FVC, FEV1, or diffusing capacity. Clinical correlation is recommended.
== END 2025-02-23 09:48 | disposition home or self-care (01) ==
LOC: ANHPFT 09:50
PROVIDERS: PCP Internal Medicine; Visit Provider Internal Medicine Pulmonary Disease
DX: J44.9 Chronic obstructive pulmonary disease, unspecified (principal)
CPT/HCPCS: 94060; 94726; 94729

== ENCOUNTER 2025-03-17 07:37 | Outpatient (CLI) | payer BC, SELFPAY ==
--- NOTE | ~2025-03-17 | XR_ITS ---
EXAMINATION: XR knee RT 3V, 03/17/2025 7:56 LEAK DETECTION ENGINEER HISTORY: polyarthralgia; CHRONIC RT KNEE PAIN COMPARISON: No comparisons available. Findings: No acute fracture or malalignment. Moderate tricompartmental degenerative changes Soft tissues unremarkable. Impression: No acute fracture or malalignment. Reviewed, dictated and finalized at location P. DETECTION ENGINEER Impression: No acute fracture or malalignment.
--- NOTE | ~2025-03-17 | XR_ITS ---
EXAMINATION: XR foot LT min 3V, 03/17/2025 7:56 AIR BOX TESTER HISTORY: polyarthralgia; CHRONIC LT FOOT PAIN COMPARISON: No comparisons available. Findings: No acute fracture or malalignment. Large calcaneal spur. Severe Achilles enthesopathy Soft tissues unremarkable. Impression: No acute fracture or malalignment. Reviewed, dictated and finalized at location P. BOX TESTER Impression: No acute fracture or malalignment.
--- NOTE | ~2025-03-17 | XR_ITS ---
EXAMINATION: XR knee LT 3V, 03/17/2025 7:56 CUSTOMER SERVICE DISPATCHER HISTORY: polyarthralgia; CHRONIC LT KNEE PAIN COMPARISON: No comparisons available. Findings: No acute fracture or malalignment. Moderate tricompartmental degenerative changes Soft tissues unremarkable. Impression: No acute fracture or malalignment. Reviewed, dictated and finalized at location P. OMER SERVICE DISPATCHER Impression: No acute fracture or malalignment.
--- NOTE | ~2025-03-17 | XR_ITS ---
EXAMINATION: XR foot RT min 3V, 03/17/2025 7:56 REGISTERED MASSAGE THERAPIST HISTORY: polyarthralgia; CHRONIC RT FOOT PAIN COMPARISON: No comparisons available. Findings: No acute fracture or malalignment. Large calcaneal spur.Severe Achilles enthesopathy Soft tissues unremarkable. Impression: No acute fracture or malalignment. Reviewed, dictated and finalized at location P. STERED MASSAGE THERAPIST Impression: No acute fracture or malalignment.
--- OUTSIDE RECORDS SUMMARY | 2025-03-17 07:45 | XMS_ITS | Encounter Summary ---
Author Organization [facility] Address 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 Sections of small bowel contain four fragments of small intestinal mucosa showing no significant histopathologic abnormalities. There is no significant increase in intraepithelial or lamina propria inflammation. Villous architecture appears preserved, without evidence of villous blunting. There is no evidence of active inflammation, granulomas, or foveolar metaplasia. [facility] 10.11.2008 10:12 am Staging Form: No. ELECTRONIC SIGNATURE FOR LIANA TITUS M.D.- 10/11/08 03:24 pm INTERFACE SYSTEM 10/10/2008 10:2 4 AM CDT Kirby Brambila MD PATHOLOGY/CYTOLOGY ORDERABLES Final Result INTERFACE SYSTEM Refer to clinic/hospital department * POC , URINE (10/10/2008 7:43 AM CDT) , URINE POC Negative Negative [facility] 10/10/2008 7:43 AM CDT 10/10/2008 7:43 AM CDT Kirby Brambila MD POINT OF CARE TESTING Final R esult INTERFACE SYSTEM Refer to clinic/hospital department [facility] CLIA# [id number] [address] [place] [address] documented in this encounter Visit Diagnoses Diagnosis Heartburn Diarrhea Flatulence, eructation, and gas pain documented in this encounter Care Teams Crate Liner Relationship Specialty Start Date End Date Jt Zamora MD [address] [place] [id number] PCP - General Family Practice 12/17/11 documented as of this encounter
--- OUTSIDE RECORDS SUMMARY | 2025-03-17 07:45 | XMS_ITS | Encounter Summary ---
Author Organization [facility] Address 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 Gender Identity Not on file Sexual Orientation [...] IGG (07/23/2007 7:47 AM CDT) Pathologist [facility] CYCLIC CITRULLINATED PEPTIDE AB IGG <20 Units [facility] Comment: REFERENCE RANGE: NEGATIVE: <20 WEAK POSITIVE: 20-39 MODERATE/STRONG POSITIVE: 40-59 STRONG POSITIVE: >59 Lab test performed by: [employer] [id number] [address] [employer] [place] [address] LAURITA GARCIA MD Blood specimen (specimen) 07/23/2007 7:47 AM CDT 07/23/2007 9:21 AM CDT Scooter Wood MD CHEMISTRY ORDERABLES Final Resu lt Performing Organization Address [facility] Co de Phone Number [facility] [address] [place] [address] * ALDOLASE (07/23/2007 7:47 AM CDT) [facility] ALDOLASE 3.3 < OR = 8.1 U/L [facility] Comment: Lab test performed by: [employer] [id number] [address] [employer] [place] [address] LAURITA GARCIA MD Blood specimen (specimen) 07/23/2007 7:47 AM CDT 07/23/2007 8:06 AM CDT us Scooter Wood MD CHEMISTRY ORDERABLES Final Resu lt Performing Organization Address [facility] Co de Phone Number [facility] [address] [place] [address] * RHEUMATOID FACTOR (07/23/2007 7:47 AM CDT) Pathologist [facility] RHEUMATOID FACTOR <6.0 0.0 - 13.9 IU/mL [facility] Blood specimen (specimen) 07/23/2007 7:47 AM CDT 07/23/2007 8:04 AM CDT us Scooter Wood MD CHEMISTRY ORDERABLES Final Resu lt Performing Organization Address [facility] Co de Phone Number [facility] [address] [place] [address] * COMPLEMENT C4 (07/23/2007 7:47 AM CDT) COMPLEMENT C4 20 10 - 40 mg/dL [facility] Blood specimen (specimen) 07/23/2007 7:47 AM CDT 07/23/2007 8:04 AM CDT us Scooter Wood MD CHEMISTRY ORDERABLES Final Resu lt Performing Organization Address [facility] de Phone Number [facility] [address] [place] [address] * COMPLEMENT C3 (07/23/2007 7:47 AM CDT) COMPLEMENT C3 158 90 - 180 mg/dL [facility] Blood specimen (specimen) 07/23/2007 7:47 AM CDT 07/23/2007 8:04 AM CDT us Scooter Wood MD CHEMISTRY ORDERABLES Final Resu lt Performing Organization Address [facility] de Phone Number [facility] [address] [place] [address] * LUZ PANEL (07/23/2007 7:47 AM CDT) LZU SCREEN NEGATIVE NEGATIVE [facility] Comment: Lab test performed by: [employer] [place] [id number] [address] [place], [place] [address] LAURITA GARCIA MD DNA AUTOABS DOUBLE STRANDED 4 IU/mL [facility] Comment: IU/mL INTERPRETATION ===== < OR = 4 NEGATIVE 5 - 9 INDETERMINATE > OR = 10 POSITIVE Lab test performed by: [place] [address] LAURITA GARCIA MD SCLERODERMA AB SCL 70 <1.0 NEG <1.0 NEG Index [facility] Comment: Lab test performed by: [employer] [place] [address] LAURITA GARCIA MD SJOGRENS ABS (SSB) <1.0 NEG <1.0 NEG Index [facility] Comment: Lab test performed by: [employer] [facility] [place] [address] LAURITA GARCIA MD RUSS ABS, SM/DIRECTOR TRANSLATIONAL AB <1.0 NEG <1.0 NEG Index [facility] Comment: Lab test performed by: [employer] [facility] [place] [address] LAURITA GARCIA MD RUSS ABS, SM AB <1.0 NEG <1.0 NEG Index [facility] SJOGRENS ABS (SSA) <1.0 NEG <1.0 NEG Index [facility] Blood specimen (specimen) 07/23/2007 7:47 AM CDT 07/23/2007 8:04 AM CDT Scooter Wood MD CHEMISTRY ORDERABLES Edited [facility] [address] [place] [address] * (ABNORMAL) HLA B27 (07/23/2007 7:47 AM CDT) HLA B27 DETECTED(A ) [facility] Comment: THE HLA B27 ANTIGEN IS PRESENT IN 9% OF AND 4% OF BLACK POPULATIONS. THIS ANTIGEN IS SEEN WITH A FREQUENCY OF 90% IN PATIENTS WITH ANKYLOSING SPONDYLITIS AND A FREQUENCY OF 80% IN PATIENTS WITH REITERS DISEASE. Lab test performed by: [employer] [place] [address] [address] [place] [employer] [phone] LAURITA GARCIA MD Blood specimen (specimen) 07/23/2007 7:47 AM CDT 07/23/2007 8:06 AM CDT us Scooter Wood MD CHEMISTRY ORDERABLES Final Resu lt Performing Organization Address [facility] Co de Phone Number [facility] [address] [place] [address] * HEPATITIS C ANTIBODY (07/23/2007 7:47 AM CDT) HEPATITIS C AB NON-REACTI VE NON-REACT SHERINE [facility] SIGNAL TO CUT OFF 0.05 <1.00 [facility] Comment: Lab test performed by: [employer] [place] [id number] CHAR[address] [place]TELL [employer] [phone] LAURITA GARCIA MD Blood specimen (specimen) 07/23/2007 7:47 AM CDT 07/23/2007 8:04 AM CDT us Scooter Wood MD CHEMISTRY ORDERABLES Final Resu lt Performing Organization Address [facility] Co de Phone Number [facility] [address] [place] [address] * HEPATITIS B SURFACE AB (07/23/2007 7:47 AM CDT) HEPATITIS B SURFACE AB <5 mIU/mL [facility] Comment: PATIENT DOES NOT HAVE IMMUNITY TO HEPATITIS B VIRUS. Lab test performed by: [employer] [place] [address] [address]TELL [employer] [phone] LAURITA GARCIA MD Blood specimen (specimen) 07/23/2007 7:47 AM CDT 07/23/2007 8:06 AM CDT us Scooter Wood MD CHEMISTRY ORDERABLES Final Resu lt Performing Organization Address [facility]/ZIP Co de Phone Number [facility] [address] [place] [address] * TSH (07/23/2007 7:47 AM CDT) [facility] TSH 1.07 0.27 - 4.20 uU/mL [facility] Blood specimen (specimen) 07/23/2007 7:47 AM CDT 07/23/2007 8:04 AM CDT Scooter Wood MD CHEMISTRY ORDERABLES Final Resu lt Performing Organization Address [facility] Co de Phone Number [facility] [address] [place] [address] * (ABNORMAL) LACTATE DEHYDROGENASE (07/23/2007 7:47 AM CDT) [facility] LD (LACTATE DEHYDROGENASE) 129(L) 135 - 214 U/L [facility] Blood specimen (specimen) 07/23/2007 7:47 AM CDT 07/23/2007 8:04 AM CDT us Scooter Wood MD CHEMISTRY ORDERABLES Final Resu Performing Organization Address [facility] Co de Phone Number [facility] [address] [place] [address] * (ABNORMAL) CBC WITH DIFFERENTIAL (07/23/2007 7:47 AM CDT) [facility] HEMOGLOBIN 15.4(H) 11.8 - 14.8 g/dL [facility] RDW 13.8 11.5 - 14.5 % [facility] WBC 9.4 4.0 - 9.8 K/uL [facility] MCH 32.4 27.2 - 32.6 pg [facility] MPV 12.1 9.3 - 12.4 fL [facility] HEMATOCRIT 45.2(H) 35.5 - 44.0 % [facility] RDW-STDEV 47.6 37.1 - 48.7 fL [facility] RBC 4.75 3.90 - 4.90 M/uL [facility] MCHC 34.1 31.5 - 35.5 % [facility] MCV 95.2 82.0 - 99.0 fL [facility] PLATELETS 215 140 - 350 K/uL [facility] EOSINOPHILS 2 0 - 7 % [facility] EOSINOPHIL ABSOLUTE 0.22 0.00 - 0.70 K/uL [facility] LYMPHOCYTES 23 16 - 45 % [facility] LYMPHOCYTE ABSOLUTE 2.15 0.70 - 4.50 K/uL [facility] BASOPHILS 0 0 - 2 % [facility] BASOPHILS ABSOLUTE 0.03 0.00 - 0.20 K/uL [facility] MONOCYTES 4 3 - 13 % [facility] MONOCYTE ABSOLUTE 0.42 0.10 - 1.30 K/uL [facility] NEUTROPHILS 70 45 - 70 % [facility] NEUTROPHIL ABSOLUTE 6.62 1.90 - 7.00 K/uL [facility] Blood specimen (specimen) 07/23/2007 7:47 AM CDT 07/23/2007 8:29 AM CDT us Scooter Wood MD HEMATOLOGY ORDERABLES Edited INTERFACE SYSTEM Refer to clinic/hospital department [facility] [address] [place] [address] * CK (07/23/2007 7:47 AM CDT) CK 50 10 - 145 U/L [facility] Blood specimen (specimen) 07/23/2007 7:47 AM CDT 07/23/2007 8:04 AM CDT us Scooter Wood MD CHEMISTRY ORDERABLES Final Resu lt [facility] [address] [place] [address] * (ABNORMAL) COMPREHENSIVE METABOLIC PANEL (07/23/2007 7:47 AM CDT) CREATININE 0.52 0.51 - 0.95 mg/dL [facility] ALT 17 0 - 31 U/L [facility] SODIUM 135 135 - 145 mmol/L [facility] ALKALINE PHOSPHATASE 50 35 - 104 U/L [facility] CO2 23 22 - 30 mmol/L [facility] BILIRUBIN TOTAL 0.3 0.2 - 1.0 mg/dL [facility] POTASSIUM 4.1 3.5 - 4.9 mmol/L [facility] TOTAL PROTEIN 7.7 6.3 - 8.6 g/dL [facility] GLUCOSE 110(H) 65 - 99 mg/dL [facility] AST 17 12 - 32 U/L [facility] BUN 13 6 - 20 mg/dL [facility] CALCIUM 8.9 8.4 - 10.2 mg/dL [facility] ALBUMIN 4.4 3.4 - 4.8 g/dL [facility] CHLORIDE 102 96 - 108 mmol/L [facility] GFR, >60 >=60 mL/min/1. 7 sq meter [facility] GFR >60 >=60 mL/min/1. 7 sq meter [facility] Comment: Estimated GFR rate interpretative information for both Americans and non- Americans is available on the [facility] Intranet at: [email or web address] [email or web address] the good [email or web address]/unity/sjmmclab.nsf Select: Lab Policies and Procedures Select: Reference Ranges - GFR Blood specimen (specimen) 07/23/2007 7:47 AM CDT 07/23/2007 8:04 AM CDT us Scooter Wood MD CHEMISTRY ORDERABLES Edited Performing Organization Address [facility] de Phone Number [facility] [address] [place] [address] * C-REACTIVE PROTEIN (07/23/2007 7:47 AM CDT) Pathologist [facility] CRP 0.3 0.0 - 0.8 mg/dL [facility] Blood specimen (specimen) 07/23/2007 7:47 AM CDT 07/23/2007 8:04 AM CDT us Scooter Wood MD CHEMISTRY ORDERABLES Final Resu lt Performing Organization Address [facility] de Phone Number [facility] [address] [place] [address] * SEDIMENTATION RATE (07/23/2007 7:47 AM CDT) Pathologist [facility] ESR (SEDIMENTATION RATE) 6 0 - 20 mm/hr [facility] Blood specimen (specimen) 07/23/2007 7:47 AM CDT 07/23/2007 8:29 AM CDT us Scooter oWod MD HEMATOLOGY ORDERABLES Final Res ult Performing Organization Address [facility] de Phone Number [facility] [address] [place] [address] * URINALYSIS (07/23/2007 7:47 AM CDT) CLARITY UA Clear Clear [facility] BILIRUBIN UA Negative Negative [facility] PROTEIN UA Negative Negative [facility] LEUKOCYTE ESTERASE UA Negative Negative [facility] SPECIFIC GRAVITY UA 1.009 1.001 - 1.035 [facility] GLUCOSE UA Negative Negative [facility] BLOOD UA Negative Negative [facility] COLOR UA Pale Yellow [facility] NITRITE UA Negative Negative [facility] UROBILINOGEN UA <1 <=1 mg/dL [facility] PH UA 5.0 5.0 - 8.0 [facility] KETONES UA Negative Negative [facility] 07/23/2007 7:47 AM CDT 07/23/2007 8:32 AM CDT Scooter Wood MD URINE ORDERABLES Final Result Performing Organization Address City/State/[facility] Co de Phone Number [facility] [address] [place] [address] * XR WRIST 2 VW RIGHT (07/23/2007 7:12 AM CDT) Anatomical Region Laterality Modality Wrist / Hand Other 07/23/2007 7:12 AM CDT Narrative 07/23/2007 9:39 AM CDT [facility] [address] [place], [place] [address] Admit Date: 07/23/2007 BISHOP LANDRY Sex: F Admit Prov: SCOOTER WOOD Date: 1965 Primary Care Prov: SCOOTER WOOD CMRN: [id number] Room: [facility] SSN: [id number] IMAGING SERVICES Ordering Prov: N/A Accession Number: [id number] Interpretation RIGHT WRIST TWO VIEWS 07/23/2007 Clinical [...] AMK Procedure Note Provider, Historical - 07/23/2007 [address] [address] [place], [place] [address] Admit Date: 07/23/2007 BISHOP LANDRY Sex: F Admit Prov: KAREL SCOOTER Leung Date:1965 Primary Care Prov: SCOOTER WOOD CMRN: [id number] Room: [facility] SSN: [id number] IMAGING SERVICES Ordering Prov: N/A Interpretation RIGHT [...] AM CDT Narrative 07/23/2007 9:38 AM CDT [address] [address] [place], [place] [address] Admit Date: 07/23/2007 BISHOP LANDRY Sex: F Admit Prov: SCOOTER WOOD Date: 1965 Primary Care Prov: SCOOTER WOOD CMRN: [id number] Room: [facility] N: [id number] IMAGING SERVICES Ordering Prov: N/A Accession Number: [id number] Interpretation LEFT WRIST 2 VIEWS 07/23/2007 History: [...] AMK Procedure Note Provider, Historical - 07/23/2007 [id number] [place], [place] [address] Admit Date: 07/23/2007 BISHOP LANDRY Sex: F Admit Prov: SCOOTER WOOD Date:1965 Primary Care Prov: SCOOTER WOOD CMRN: [id number] Room: [facility] SSN: [id number] IMAGING SERVICES Ordering Prov: N/A Interpretation LEFT [...] AM CDT Narrative 07/23/2007 9:38 AM CDT [address] [address] Admit Date: 07/23/2007 KENNETH LANDRYIE Sex: F Admit Prov: SCOOTER WOOD Date: 1965 Primary Care Prov: SCOOTER WOOD CMRN: [id number] Room: [facility] SSN: [id number] IMAGING SERVICES Ordering Prov: N/A Accession Number: [id number] Interpretation RIGHT HAND TWO VIEWS 07/23/2007 Clinical [...] AMK Procedure Note Provider, Historical - 07/23/2007 [facility] [address] [facility] [place], [place] [address] Admit Date: 07/23/2007 BISHOP LANDRY Sex: F Admit Prov: SCOOTER WOOD Date:1965 Primary Care Prov: SCOOTER WOOD CMRN: [id number] Room: [facility] SSN: [address] [place] [address] IMAGING SERVICES Ordering Prov: N/A Interpretation RIGHT [...] AM CDT Narrative 07/23/2007 9:39 AM CDT [facility] [address] [facility] [place], [place] [address] Admit Date: 07/23/2007 LANDRYBISHOP BYRNE Sex: F Admit Prov: SCOOTER WOOD Date: 1965 Primary Care Prov: SCOOTER WOOD CMRN: [id number] Room: [facility] SSN: [address] [place] [address] IMAGING SERVICES Ordering Prov: N/A Accession Number: [id number] Interpretation LEFT HAND TWO VIEWS 07/23/2007 Clinical [...] AMK Procedure Note Provider, Historical - 07/23/2007 [facility] [address] [place], [place] [address] Admit Date: 07/23/2007 BISHOP LANDRY Sex: F Admit Prov: SCOOTER WOOD Date:1965 Primary Care Prov: SCOOTER WOOD CMRN: [id number] Room: [facility] SSN: [id number] IMAGING SERVICES Ordering Prov: N/A Interpretation LEFT [...] LUNA 07/23/2007 09:39 Transcribed: 07/23/2007 09:34 AMK us Scooter Wood MD DIAGNOSTIC IMAGING ORDERABLES F inal Result * XR FOOT 2 VW RIGHT (07/23/2007 7:12 AM CDT) Anatomical Region Laterality Modality Ankle / Foot Other 07/23/2007 7:12 AM CDT Narrative 07/23/2007 9:49 AM CDT [address] [address] Admit Date: 07/23/2007 BISHOP LANDRY Sex: F Admit Prov: SCOOTER WOOD Date: 1965 Primary Care Prov: SCOOTER WOOD CMRN: [id number] [facility] [address] [place] [address] IMAGING SERVICES Ordering Prov: N/A Accession Number: [id number] Interpretation RIGHT FOOT 2 VIEWS 07/23/2007 History: [...] AMK Procedure Note Provider, Historical - 07/23/[address] [address] Admit Date: 07/23/2007 BISHOP LANDRY Sex: F Admit Prov: SCOOTER WOOD Date:1965 Primary Care Prov: SCOOTER WOOD CMRN: [id number] [facility] [address] [place] [address] IMAGING SERVICES Ordering Prov: N/A Interpretation RIGHT [...] AM CDT Narrative 07/23/2007 9:49 AM CDT [address] [address] [place], [place] [address] Admit Date: 07/23/2007 BISHOP LANDRY Sex: F Admit Prov: SCOOTER WOOD Date: 1965 Primary Care Prov: SCOOTER WOOD CMRN: [id number] Room: [facility] SSN: [id number] IMAGING SERVICES Ordering Prov: N/A Accession Number: [id number] Interpretation LEFT FOOT 2 VIEWS 07/23/2007 Clinical [...] AMK Procedure Note Provider, Historical - 07/23/2007 [address] [address] [place], [place] [address] Admit Date: 07/23/2007 BISHOP LANDRY Sex: F Admit Prov: SCOOTER WOOD Date:1965 Primary Care Prov: SCOOTER WOOD CMRN: [id number] Room: [facility] SSN: [id number] IMAGING SERVICES Ordering Prov: N/A Interpretation LEFT [...] AM CDT Narrative 07/23/2007 9:49 AM CDT [address] [place], [place] [address] Admit Date: 07/23/2007 BISHOP LANDRY Sex: F Admit Prov: SCOOTER WOOD Date: 1965 Primary Care Prov: SCOOTER WOOD CMRN: [id number] Room: [facility] SSN: [id number] IMAGING SERVICES Ordering Prov: N/A Accession Number: [id number] Interpretation RIGHT ANKLE 2 VIEWS 07/23/2007 History: [...] AMK Procedure Note Provider, Historical - 07/23/2007 [facility] [address] [place], [place] [address] Admit Date: 07/23/2007 KENNETH LANDRYIE Sex: F Admit Prov: SCOOTER WOOD Date:1965 Primary Care Prov: SCOOTER WOOD CMRN: [id number] Room: [facility] SSN: [id number] IMAGING SERVICES Ordering Prov: N/A Interpretation RIGHT [...] AM CDT Narrative 07/23/2007 9:49 AM CDT [address] [address] Admit Date: 07/23/2007 BISHOP LANDRY Sex: F Admit Prov: SCOOTER WOOD Date: 1965 Primary Care Prov: SCOOTER WOOD CMRN: [id number] Room: [facility] SSN: [id number] IMAGING SERVICES Ordering Prov: N/A Accession Number: [id number] Interpretation LEFT ANKLE 2 VIEWS 07/23/2007 Clinical [...] AMK Procedure Note Provider, Historical - 07/23/2007 [address] [address] [place], [place] [address] Admit Date: 07/23/2007 BISHOP LANDRY Sex: F Admit Prov: SCOOTER WOOD Date:1965 Primary Care Prov: SCOOTER WOOD CMRN: [id number] [facility]: [id number] IMAGING SERVICES Ordering Prov: N/A Interpretation LEFT [...] unspecified documented in this encounter Care Teams Basketball Referee Relationship Specialty Start Date End Date Jt Zamora MD [address] [place] [phone] PCP - General Family Practice 12/17/11 documented as of this encounter
--- OUTSIDE RECORDS SUMMARY | 2025-03-17 07:45 | XMS_ITS | Clinical Summary ---
Author Organization [facility] [place] [address] [facility] [address] Address [address] [place] [id number] Care Team Providers Care Shoe Worker Name Role Phone Soham Arnold MD Unavailable [phone] Jeaneth Funez MD Unavailable Walt Shetty MD Unavailable [phone] Jaime Cleaning MD Primary Care Provider [phone] Allergies Active Allergy Reactions Criticality Noted Date [...] SURECLICK SUBQ) Inject under the skin Active traMADol (ULTRAM) 50 mg tablet Take [...] (10 mg total) by mouth nightly Active alirocumab 150 mg/mL pen injector Inject 150 mg under the skin every 14 (fourteen) days Active losartan (COZAAR) 100 mg tablet Take [...] water after use. Do not swallow. Active DULoxetine DR (CYMBALTA) 30 mg capsule Take 1 capsule (30 mg total) by mouth daily 05/13/19 25 Active magnesium oxide 400 mg magnesium capsule Take by mouth Active Glyxambi 10-5 mg tablet Take 1 tablet by mouth daily 09/15/19 25 Active metoprolol XL (TOPROL-XL) 50 mg extended release tablet Take 1 tablet (50 mg total) by mouth daily 08/02/19 25 Active tacrolimus (PROTOPIC) 0.1 % ointment Apply topically 2 (two) times a day 025 Discontinued metFORMIN (GLUCOPHAGE) 850 mg tablet Take 1 tablet (850 mg total) by mouth 2 (two) times a day with meals 025 Discontinued gabapentin (NEURONTIN) 100 mg capsule Take 2 capsules (200 mg total) by mouth 3 (three) times a day 025 Discontinued dilTIAZem CD 240 mg 24 hr capsule Take 1 capsule (240 mg total) by mouth daily 05/13/19 25 025 Discontinued Active Problems Problem Noted Date Diagnosed Date Polyarthralgia 03/16/2025 Assessment & Plan (03/16/2025 7:34 PM SENIOR ADMINISTRATIVE SUPPORT): Patient returns to clinic due to concern for uncontrolled inflammation of her joints and skin. Reports foot pain that worsens with ambulation, intermittently occurring knee pain w/o effusions that makes it difficult to walk and intermittent wrist/palm pain. Denies any inflammatory sounding joint pain. Continues to have idiopathic urticaria and dry eyes for which she takes daily anti-histamines and uses lubricating drops. Her dry eyes may be exacerbated by her anti-histamine regimen for urticaria. No synovitis on exam with several tender PIP joints. Will check labs, serologies, hand/knee XRs and a foot/ankle US to evaluate for any inflammation given her concern, although I do not suspect she has an underlying inflammatory arthritis. Will call with results. Seen with Dr. Shetty. Status post insertion of drug eluting coronary a rtery stent 05/21/2024 Essential hypertension 09/16/2023 Coronary artery disease invo [place]ving [place] coronary artery of [place] heart without angina pectoris 09/16/2023 Morbid obesity [...] symptoms. Encouraged her to return to her swimmer for additional review of her facial redness [...] Insomnia 02/23/2014 Hypermobility syndrome 02/23/2014 Rash 11/19/2013 Assessment & Plan (03/16/2025 7:27 PM SENIOR ADMINISTRATIVE SUPPORT): Patient continues to have areas of erythema on her face, chest, palms and more recently her lower legs. She is concerned that uncontrolled inflammation is the cause of the reddened areas as topical steroids have failed to improve them and sun causes worsening of the rashes. On exam she has erythema across her cheeks, chin, area inferior to the nares and across the nasolabial folds. BLE are mildly erythematous with scattered faint petechiae. Appears to have vasodilatory flushing of her thenar and hypothenar eminences. Discussed that her face/chest area are more in line with rosacea than a lupus/malar rash and recommend follow up with swimmer for possible topicals to try vs oral therapy. The redness on her hands appears to be simple flushing/vasodilation mediated and she has the appearance of early venous stasis dermatitis of her legs with varicosities noted in and around her ankles. She cannot tolerate compression hose and therefore would recommend elevation of feet throughout the day. Could also consider compression hose devices and seeing a vascular surgeon if remains concerned. Hyperlipidemia 04/27/2013 Psoriasis 04/27/2013 Assessment & Plan (12/06/2021 12:20 PM CDT): Reports history of psoriasis on her elbows. Saw swimmer in the past who provided topical agents with resolution of skin rashes. 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 Impaired glucose tolerance 04/27/2013 Standard chest x-ray abnormal 08/19/2012 Encounters Date Type Department Care Team Description 03/15/2025 1:00 PM SENIOR ADMINISTRATIVE SUPPORT Office Visit [facility] [address] [place] [phone] Bhargavi Nation PA Polyarthralgia (Primary Dx); Rash; LUZ positive; Bilateral dry eyes from Last 3 Months Surgical History Surgery Date Site/Laterality Comments [place] TOTAL ABDOMINAL HYSTERECT W/WO RMVL TUBE OVARY Hysterectomy - (Added by TW Conv) BREAST SURGERY Breast Surgery Enlargement Procedure Bilateral - (Added by TW Conv) [place] TONSILLECTOMY PRIMARY/SECONDARY <AGE 12 Tonsillectomy - (Added [...] or subcutaneous tissue History of urticaria - (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 (Added by [...] on file Legal Sex Female 8:03 PM SENIOR ADMINISTRATIVE SUPPORT Gender Identity Not on file Sexual Orientation Not on file Last Filed Vital Signs Vital Sign Reading Time Taken Comments Blood Pressure 146/72 03/15/2025 1:02 PM SENIOR ADMINISTRATIVE SUPPORT Pulse 82 03/15/2025 1:02 PM SENIOR ADMINISTRATIVE SUPPORT Temperature - - Respiratory Rate - - Oxygen Saturation 95% 03/15/2025 1:02 PM SENIOR ADMINISTRATIVE SUPPORT Inhaled Oxygen Concentration - - Weight 106.9 kg (235 lb 9.6 oz) 025 1:02 PM SENIOR ADMINISTRATIVE SUPPORT Height 162.6 cm (5' 4) 03/15/2025 1:02 PM SENIOR ADMINISTRATIVE SUPPORT Body Mass Index 40.44 03/15/2025 1:02 PM SENIOR ADMINISTRATIVE SUPPORT Plan of Treatment Health Maintenance Due Date Last Done Comments Breast Cancer Screening-Mammogram 1965 Cervical Cancer Screening 1965 Colon Cancer Screening-Colonoscopy 1965 Depression Screening 1965 Hepatitis B Screening 02/12/1982 Regular Well Visit/Exam 18-64 02/12/1982 Zoster Vaccine (1 of 2) 02/12/2014 Influenza Vaccine (#1) 2024 , 02/22/2023, 02/20/2022, Additional history exists Pneumococcal vaccine <65 (3 of 3 - PCV20 or PCV21) 01/25/2025 01/26/2020, 02/06/2018 DTaP/Tdap/Td Vaccine (2 - Td or Tdap) 07/25/2031 07/24/2021 Hepatitis C Screening Completed 12/06/2021 Procedures Procedure Name Priority Date/Time Associated Diagnosis Comments CRP (ACUTE PHASE) Routine 03/15/2025 2:5 7 PM SENIOR ADMINISTRATIVE SUPPORT Polyarthralgia LUZ positive Rash Bilateral dry eyes ERYTHROCYTE SEDIMENTATION RATE Routine 03/15/2025 2:57 PM SENIOR ADMINISTRATIVE SUPPORT Polyarthralgia LUZ positive Rash Bilateral dry eyes COMPREHENSIVE METABOLIC PANEL Routine 03/15/2025 2:57 PM SENIOR ADMINISTRATIVE SUPPORT Polyarthralgia LUZ positive Rash Bilateral dry eyes CBC WITH AUTO DIFFERENTIAL Routine 03/15/2025 2:57 PM SENIOR ADMINISTRATIVE SUPPORT Polyarthralgia LUZ positive Rash Bilateral dry eyes HEPATITIS PANEL, ACUTE Routine 11:26 AM CDT from Last 3 Months or Most Recently Relevant to Health Maintenance Results * (ABNORMAL) CBC with auto differential (03/15/2025 2:57 PM SENIOR ADMINISTRATIVE SUPPORT) Pathologist [facility] WBC 7.2 3.8 - 10.8 Thousand/u L [facility] RBC, POC 5.04 3.80 - 5.10 Million/uL [facility] Hgb 16.3(H) 11.7 - 15.5 g/dL [facility] Hct 49.3(H) 35.0 - 45.0 % [facility] MCV 97.8 80.0 - 100.0 fL [facility] MCH 32.3 27.0 - 33.0 pg [facility] MCHC 33.1 32.0 - 36.0 g/dL [facility] Comment: For adults, a slight decrease in the calculated MCHC value (in the range of 30 to 32 g/dL) is most likely not clinically significant; however, it should be interpreted with caution in correlation with other red cell parameters and the patient's clinical condition. Rdw 12.8 11.0 - 15.0 % [facility] Platelets 204 140 - 400 Thousand/u L [facility] MPV 11.0 7.5 - 12.5 fL [facility] Neutrophils, abs 4,363 1,500 - 7,800 cells/uL [facility] Lymphocytes, abs 2,117 850 - 3,900 cells/uL [facility] Monocyte abs 511 200 - 950 cells/uL [facility] Eosinophils, abs 187 15 - 500 cells/uL [facility] Basophils, abs 22 0 - 200 cells/uL [facility] Neutrophils 60.6 % [facility] Lymphocyte pct 29.4 % [facility] Monocytes 7.1 % [facility] Eosinophils 2.6 % [facility] Basophils 0.3 % [facility] Blood 03/15/2025 2:57 PM SENIOR ADMINISTRATIVE SUPPORT 03/15/2025 2:58 PM SENIOR ADMINISTRATIVE SUPPORT Narrative [facility] - 03/16/2025 9:01 AM SENIOR ADMINISTRATIVE SUPPORT AN UPDATE OR CORRECTION HAS BEEN MADE TO NAME Bhargavi VILLASENOR LAB BLOOD ORDER YUAN Final Result [facility] [address] [place] [address] * Erythrocyte sedimentation rate (03/15/2025 2:57 PM SENIOR ADMINISTRATIVE SUPPORT) Erythrocyte sedimentation rate 2 < OR = 30 mm/h [facility] Blood 03/15/2025 2:57 PM SENIOR ADMINISTRATIVE SUPPORT 03/15/2025 2:58 PM SENIOR ADMINISTRATIVE SUPPORT Narrative [facility] - 03/16/2025 9:01 AM SENIOR ADMINISTRATIVE SUPPORT AN UPDATE OR CORRECTION HAS BEEN MADE TO NAME Bhargavi VILLASENOR LAB BLOOD ORDER YUAN Final Result [facility] [address] [place] [address] * CRP (acute phase) (03/15/2025 2:57 PM SENIOR ADMINISTRATIVE SUPPORT) C-RP 6.3 <8.0 mg/L [facility] Blood 03/15/2025 2:57 PM SENIOR ADMINISTRATIVE SUPPORT 03/15/2025 2:58 PM SENIOR ADMINISTRATIVE SUPPORT Narrative [facility] - 03/16/2025 9:01 AM SENIOR ADMINISTRATIVE SUPPORT AN UPDATE OR CORRECTION HAS BEEN MADE TO NAME Bhargavi VILLASENOR LAB BLOOD ORDER YUAN Final Result [facility] [address] [address] [place], [place] [phone] * (ABNORMAL) Comprehensive metabolic panel (03/15/2025 2:57 PM SENIOR ADMINISTRATIVE SUPPORT) Pathologist [facility] Glucose 93 65 - 99 mg/dL [facility] Comment: Fasting reference interval BUN 18 7 - 25 mg/dL [facility] Creatinine 0.68 0.50 - 1.05 mg/dL [facility] eGFR 99 > OR = 60 mL/min/1.7 3m2 [facility] BUN/creat ratio SEE NOTE: 6 - 22 (calc) [facility] Comment: Not Reported: BUN and Creatinine are within reference range. Sodium 139 135 - 146 mmol/L [facility] Potassium, pl 4.3 3.5 - 5.3 mmol/L [facility] Chloride 100 98 - 110 mmol/L [facility] CO2 31 20 - 32 mmol/L [facility] Calcium 9.6 8.6 - 10.4 mg/dL [facility] Protein, sr 7.4 6.1 - 8.1 g/dL [facility] Albumin 4.5 3.6 - 5.1 g/dL [facility] GLOBULIN 2.9 1.9 - 3.7 g/dL (calc) [facility] Alb/glob ratio 1.6 1.0 - 2.5 (calc) [facility] Bilirubin, total 0.6 0.2 - 1.2 mg/dL [facility] Alk phos 59 37 - 153 U/L [facility] AST 36(H) 10 - 35 U/L [facility] ALT (SGPT) 39(H) 6 - 29 U/L [facility] Blood 03/15/2025 2:57 PM SENIOR ADMINISTRATIVE SUPPORT 03/15/2025 2:58 PM SENIOR ADMINISTRATIVE SUPPORT Narrative [facility] - 03/16/2025 9:01 AM SENIOR ADMINISTRATIVE SUPPORT AN UPDATE OR CORRECTION HAS BEEN MADE TO NAME us Bhargavi VILLASENOR LAB BLOOD ORDER YUAN Final Result [facility] [address] [place] [phone] * Hepatitis panel, acute (12/06/2021 11:26 AM CDT) Hep A IgM NON-REACTI VE NON-REACT SHERINE [facility] Comment: For additional information, please refer to http://[employer]/faq/UGN543 (This link is being provided for informational/ [...] a test for HCV RNA (test code 17372) is suggested. For additional information please refer to http://[employer]/faq/ONZ37a9 (This link is being provided for informational/ educational purposes only.) 12/06/2021 11:2 6 AM CDT 12/06/2021 11:28 AM CDT Walt Shetty MD LAB MICROBIOLOGY - GENERAL ORD ERABLES Final Result [facility] [address] [place] [phone] from Last 3 Months or Most Recently Relevant to Health Maintenance Insurance [employer] [facility] Care Teams Shoe Worker Relationship Specialty Start Date End Date Jaime Cleaning MD [address] [place] [address] PCP - General Internal Medicine 11/01/21 Soham Arnold MD [address] [place] [address] [place] [address] Referring Physician Cardiovascular Disease 02/03/19 Jeaneth Funez MD [address] [place] [id number] Referring Physician Dermatology 03/10/19 Walt Shetty MD [address] [place] [address] Consulting Physician Rheumatology 11/01/21
--- OUTSIDE RECORDS SUMMARY | 2025-03-17 07:45 | XMS_ITS | Clinical Summary ---
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
== END 2025-03-17 07:38 | disposition home or self-care (01) ==
PROVIDERS: PCP Internal Medicine
DX: M25.50 Pain in unspecified joint (principal); R76.89 Other specified abnormal immunological findings in serum; R21 Rash and other nonspecific skin eruption; H04.123 Dry eye syndrome of bilateral lacrimal glands
CPT/HCPCS: 73562; 73630